=== PATIENT | female | born 1935 | race Caucasian/White ===

== ENCOUNTER 2020-11-16 06:42 | Outpatient (REF) | payer SELFPAY ==
[2020-11-16 07:03] LABS: INTERNATIONAL NORM RATIO 1.2 (0.9-1.1); Prothrombin Time 13.7 SEC (10.8-13.0)
== END 2020-11-16 06:43 | disposition home or self-care (01) ==
LOC: HO.MMNH1L 06:42
PROVIDERS: Visit Provider Family Medicine
DX: I48.91 Unspecified atrial fibrillation (principal)
CPT/HCPCS: 36415; 85610

== ENCOUNTER 2020-12-06 12:48 | Outpatient (REF) | payer SELFPAY ==
[2020-12-06 08:18] LABS: Hematocrit 21.9 % (37-47); Mean Corpuscular Hemoglobin 31.8 pg (27.0-33.0); Mean Corpuscular Volume 99.5 fL (80-98); Mean Platelet Volume 10.8 fL (9.4-12.3); Platelet Count 299 X10*3/uL (160-400); Red Cell Distribution Width 27.1 % (11.0-16.0); White Blood Count 3.5 X10*3/uL (4.8-10.8)
[2020-12-06 09:28] LABS: Anion Gap 13 (12-20); Blood Urea Nitrogen 9 mg/dL (9-16); Calcium 8.2 mg/dL (8.4-10.2); Carbon Dioxide 23 mmol/L (22-29); Chloride 99 mmol/L (96-108); Estimated Glomerular Filt Rate > 60; Glucose Random 68 mg/dL (60-115); Potassium 3.6 mmol/L (3.3-5.1); Sodium 131 mmol/L (135-145)
== END 2020-12-06 12:49 | disposition home or self-care (01) ==
LOC: HO.MMNH1L 12:48
PROVIDERS: Visit Provider Family Medicine
DX: Z91.81 History of falling (principal)
CPT/HCPCS: 36415; 80048; 85027

== ENCOUNTER 2020-12-13 06:40 | Outpatient (REF) | payer SELFPAY | END 2020-12-13 06:41 | disposition home or self-care (01) | LOC: HO.MMNH1L 06:40 | PROVIDERS: Visit Provider Family Medicine | DX: Z13.89 Encounter for screening for other disorder (principal) ==

== ENCOUNTER → 2021-11-02 14:02 | Outpatient (BNVA) | payer MEDICARE, SELFPAY | PROVIDERS: PCP Internal Medicine; Visit Provider Nurse Practitioner Family | DX: R13.10 Dysphagia, unspecified (principal); G20 Parkinson's disease; G25.0 Essential tremor; G47.33 Obstructive sleep apnea (adult) (pediatric); Z87.891 Personal history of nicotine dependence; Z79.899 Other long term (current) drug therapy | CPT/HCPCS: 99212 ==

== ENCOUNTER → 2022-04-19 13:14 | Outpatient (BNVA) | payer MEDICARE, SELFPAY | PROVIDERS: PCP Internal Medicine; Visit Provider Nurse Practitioner Family | DX: G20 Parkinson's disease (principal); G25.0 Essential tremor; R90.89 Other abnormal findings on diagnostic imaging of central nervous system; G47.33 Obstructive sleep apnea (adult) (pediatric) | CPT/HCPCS: 99212 ==

== ENCOUNTER 2022-06-18 19:20 | Inpatient (IN) | payer MEDICARE, SELFPAY ==
--- NOTE | ~2022-06-18 | CT_ITS ---
EXAMINATION: CT CHEST WITHOUT CONTRAST CLINICAL INFORMATION: Left-sided rib pain. COMPARISON: None TECHNIQUE: Multidetector volumetric CT imaging of the chest was done. Axial MIP volume rendering provided. Sagittal and coronal reformatted images were obtained. This CT examination was performed using dose optimization techniques as appropriate, variously including the following: *Automated exposure control *Adjustment of mA and/or kV according to patient size (this includes techniques or standardized protocols for targeted exams where dose is matched to indication/reason for exam; i.e. extremities or head) *Use of iterative reconstruction technique DLP: 276 mGy-cm FINDINGS: There is breathing motion. LUNGS: There are moderate to marked marmolejo emphysematous change of lungs. Consolidation/atelectasis at both dependent lung bases, left greater than right. Patchy reticular and alveolar opacity at the left lung apex within the left upper lobe. MEDIASTINUM: Heart size is normal. Small pericardial effusion. Heavy vascular calcification of coronary arteries. Vascular calcification of thoracic aorta and origin of great vessels. No aneurysm of the aorta. No mass or significant lymphadenopathy. Thyroid is unremarkable. CORONARY ARTERY CALCIFICATION: Heavy vascular calcification of coronary arteries. PLEURA: Bilateral pleural effusions. Moderate volume of the left and small on the right. AXILLA: No lymphadenopathy. UPPER ABDOMEN: Status post cholecystectomy. No focal abnormality visualized solid organs in the upper abdomen. There are vascular calcifications in the upper abdomen. OSSEOUS STRUCTURES: No acute osseous abnormality. No displaced rib fracture. Old healed fracture posterior right 10th rib. Multilevel degenerative spondylosis spine. CT/CT chest wo IV con IMPRESSION: 1. Emphysematous change of lungs. 2. Bibasilar consolidation/atelectasis, left greater than right. Patchy reticular and alveolar opacity at the left lung apex within the left upper lobe. 3. Small pericardial effusion. 4. Bilateral pleural effusions, left greater than right. 5. No displaced rib fracture. Old healed fracture posterior right 10th rib. Fleischner guidelines were followed.
[2022-06-18 19:38] VITALS: BP 117/56; PULSE 76; RESP 12; TEMP 36.9; O2SAT 95; O2SAT 97; BMI 19.3
--- NOTE | 2022-06-18 19:39 | ECG_ITS ---
Test Reason : RIB PAIN Blood Pressure : / mmHG Vent. Rate : 078 BPM Atrial Rate : 000 BPM P-R Int : 000 ms QRS Dur : 088 ms QT Int : 394 ms P-R-T Axes : 000 015 085 degrees QTc Int : 449 ms Poor data quality Normal sinus rhythm with 1st degree A-V block RSR' or QR pattern in V1 suggests right ventricular conduction delay Low voltage QRS Nonspecific ST and T wave abnormality Abnormal ECG No previous ECGs available Referred By: Arvind Workman Electronically Signed By:JEAN DUEÑAS MD
--- NOTE | 2022-06-18 19:41 | ED.CHESTPAIN ---
HPI - Chest Pain General Chief Complaint: General Medical Stated Complaint: Rib Pain Time Seen by Provider: 06/18/22 19:32 Source: patient and EMS Mode of arrival: EMS Limitations: no limitations History of Present Illness HPI narrative: 87-year-old female with lives at the skilled nursing, patient started to experience left-sided chest pain that started after the patient need was trying to transfer the patient from the bed to the chair patient thought that that transfer was handled accidentally in rough way, patient decline any risk of abuse. Pain is localized to the lower left side rib area, no radiation, pain described as dull aching pain 05/29, no other associated symptoms. Male complaining of dyspnea with exertion.. Related Data Home Medications Medication Instructions Recorded Confirmed primidone 50 mg tablet 100 mg PO BEDTIME 11/02/21 11/02/21 amiodarone 200 mg tablet 200 mg PO BID 04/19/22 04/19/22 gabapentin 100 mg capsule mg PO 04/19/22 04/19/22 lactulose 10 gram/15 mL oral 10 g PO DAILY 04/19/22 04/19/22 solution lactulose 10 gram/15 mL oral ml PO 04/19/22 04/19/22 solution levothyroxine 75 mcg tablet 75 mcg PO DAILY 04/19/22 04/19/22 lidocaine 5 % topical patch 2 patch topical DAILY 04/19/22 04/19/22 midodrine 2.5 mg tablet 2.5 mg PO BID 04/19/22 04/19/22 montelukast 10 mg tablet 10 mg PO DAILY 04/19/22 04/19/22 omeprazole 20 mg capsule,delayed 20 mg PO DAILY 04/19/22 04/19/22 release ondansetron 4 mg disintegrating 0 mg PO 04/19/22 04/19/22 tablet oxycodone 5 mg tablet 5 mg PO TID PRN 04/19/22 04/19/22 ropinirole 3 mg tablet 1.5 mg PO TID 04/19/22 04/19/22 sennosides 8.6 mg capsule (senna) 8.6 mg PO BID 04/19/22 04/19/22 Allergies Allergy/AdvReac Type Severity Reaction Status Date / Time vancomycin Allergy Mild unknown Verified 04/19/22 13:19 Review of Systems Review of Systems: All other systems are reviewed and are negative Constitutional: Reports as per HPI and Reports no additional constitutional complaints Eyes: Reports as per HPI and Reports no additional eye complaints Reports system reviewed and no additional complaints, except as documented Cardiovascular: Reports as per HPI and Reports no additional cardiovascular complaints Respiratory: Reports as per HPI and Reports no additional respiratory complaints Gastrointestinal: Reports as per HPI and Reports no additional gastrointestinal complaints Genitourinary: Reports no additional female genitourinary complaints Musculoskeletal: Reports no additional musculoskeletal complaints Skin/Breast: Reports system reviewed and no additional complaints, except as docu Psychiatric: Reports no additional psychiatric complaints Endocrine: Reports no additional endocrine complaints Hematologic/Lymphatic: Reports no additional hematologic/lymphatic complaints Allergic/Immunologic: Reports no additional allergic/immunologic complaints Reports system reviewed and no additional complaints, except as documented and Reports Abnormal speech present [facility] Past Medical History Medical History (Updated 06/19/22 @ 01:41 by Burt Yung MD) Abnormal brain MRI Essential tremor (~06/19/22) Obstructive sleep apnea Parkinson's disease Surgical History Hx of cholecystectomy Hx of total knee replacement Family History Family History Mother Alzheimer's dementia Diverticulitis Father Cancer Social History Social History Alcohol intake: never Patient Tobacco Use Status: Former Tobacco user Quit Date: 1991 Use of substances other than those prescribed or required for medical reasons: No Advance Directives: No Physical Exam Vital Signs: Vital Signs: Last Vital Signs Temp 98.3 F 06/19/22 01:33 Pulse 84 06/19/22 01:33 Resp 18 06/19/22 01:33 BP 113/66 06/19/22 01:33 Pulse Ox 95 06/19/22 01:33 O2 Del Method 06/19/22 01:33 BMI result Body Mass Index 19.3 Vital signs have been reviewed as appeared to be correct. Blood pressure normal. Heart rate normal. Respiration rate normal. Temperature normal. Oxygen saturation normal. Appearance: Alert. Oriented X3. No acute distress. Head: Normal external exam. Normocephalic. Atraumatic. No Jeffery signs noted. No raccoon eyes noted Eyes: PERRLA. EOMI. Conjunctiva and sclera normal. Eyelids normal. ENT: TM's Normal. Pharynx normal. Uvula midline. Moist mucous membranes. No trismus noted. No drooling noted. No muffled voice noted. Neck: Normal inspection. Neck supple. FROM. No adenopathy. Thyroid Normal. No meningeal signs. No neck mass noted. CVS: Normal heart rate and rhythm. Heart sound normal. No murmurs noted. Pulses normal throughout. Respiratory: No respiratory distress. Painless inspiration. Breath sounds normal. No wheezes/rales/rhonchi noted. Chest tenderness over the left 10th rib in the mid clavicular line, no ecchymosis, no step-off, no deformity. No accessory muscle usage noted or decreased air movement noted. Abdomen: Soft and nontender. Bowel sounds normal in all 4 quadrants. No distention noted. No organomegaly noted. No visible injury noted. Rectal exam: Brown stool guaiac negative. Back: No CVA tenderness. Full range of motion noted. Skin: Skin warm and dry. Normal skin color. Normal skin turgor. No rashes/lesions/lacerations noted. Extremities: No lower extremity edema. Extremities exhibit normal range of motion. Extremities nontender. Neuro: Oriented X 3. Cranial nerve exam: II-XII are grossly intact No motor deficit. No sensory deficit. Reflexes normal. Course Course Course Narrative: 87-year-old female presented with chest wall pain patient had a CT of the chest which is questioning left upper lung pneumonia since patient is coughing and have symptoms of pneumonia patient was given Zosyn patient do not meet criteria for SIRS. Anemia of unclear etiology will transfuse 1 unit of blood MDM - Chest Pain Lab Data Attestation: I reviewed the patient's lab results. Result diagrams: 06/18/22 22:39 06/18/22 22:39 Labs: Lab Results 06/18/22 06/18/22 06/18/22 Range/Units 22:39 22:39 22:39 WBC 5.2 (4.8-10.8) X10*3/uL RBC 2.55 L (4.20-5.50) X10*6/uL Hgb 7.3 L (12.0-16.0) g/dl Hct 23.1 L (37.0-47.0) % MCV 90.6 (80.0-98.0) fL MCH 28.6 (27.0-33.0) pg MCHC 31.6 (31.0-35.0) g/dl RDW 19.4 H (11.0-16.0) % Plt Count 233 (160-400) X10*3/uL MPV 12.1 (9.4-12.3) fL Immature Gran % (Auto) Cancelled Neut % (Auto) Cancelled Lymph % (Auto) Cancelled Wheeler % (Auto) Cancelled Eos % (Auto) Cancelled Baso % (Auto) Cancelled Lymph # (Auto) Cancelled Wheeler # (Auto) Cancelled Eos # (Auto) Cancelled Baso # (Auto) Cancelled Abs Immat Gran (auto) Cancelled Absolute Neuts (auto) Cancelled Absolute Nucleated RBC 0.020 H (0.0-0.012) X10*3/uL Nucleated RBC % (auto) 0.4 H (0.0-0.2) /100WBC Neutrophils % (Manual) 18 L (45-73) % Band Neutrophils % 2 L (3-5) % Lymphocytes % (Manual) 37 (20-40) % Monocytes % (Manual) 29 H (2-11) % Eosinophils % (Manual) 5 H (0-4) % Metamyelocytes % 5 % Myelocytes % 3 % Blast Cells % (Manual) 1 % Abs Neuts (Manual) 1.0 L (2.0-8.3) X10*3/uL Lymphocytes # (Manual) 1.9 (1.2-4.9) X10*3/uL Monocytes # (Manual) 1.5 H (0.1-1.2) X10*3/uL Eosinophils # (Manual) 0.3 (0.0-0.4) X10*3/uL Metamyelocytes # 0.3 X10*3/uL Myelocytes # 0.2 X10*/uL Blast Cells # 0.1 X10*3/uL Nucleated RBCs 1 H (0-0) /100WBC WBC Morphology Comment DYS Platelet Estimate NORMAL (NORMAL) Large Platelets PRESENT Plt Morphology Comment AGRANULAR RBC Morphology NOTED Hypochromasia 1+ (5-14) /OIF Microcytosis 1+ (5-14) /OIF Macrocytosis 1+ (5-14) /OIF Tear Drop Cells 1+ (0-2) /OIF Ovalocytes 1+ (5-14) /OIF Acanthocytes (Spur) 2+ (3-5) /OIF Rouleaux PRESENT Schistocytes 1+ (0-2) /OIF Sodium 132 L (135-145) mmol/L Potassium 4.6 (3.3-5.1) mmol/L Chloride 103 (96-108) mmol/L Carbon Dioxide 21 L (22-29) mmol/L Anion Gap 13 (12-20) BUN 16 (9-16) mg/dL Creatinine 0.77 (0.5-1.4) mg/dL Estim Creat Clear Calc 45.6 Estimated GFR > 60 Random Glucose 81 (60-115) mg/dL Calcium 8.5 (8.4-10.2) mg/dL Total Bilirubin 0.4 (0.0-1.0) mg/dL Direct Bilirubin 0.2 (0.0-0.5) mg/dL AST 20 (5-31) U/L ALT 8 (0-31) U/L Alkaline Phosphatase 129 H (39-117) U/L Troponin I High Sens 4.0 (<3.5-17.0) ng/L B-Natriuretic Peptide 134 H (<100) pg/mL Total Protein 6.8 (6.5-8.0) g/dL Albumin 2.9 L (3.5-5.0) g/dL Lipase 14 (8-78) U/L Stool Occult Blood (NEGATIVE) 06/19/22 Range/Units 00:05 WBC (4.8-10.8) X10*3/uL RBC (4.20-5.50) X10*6/uL Hgb (12.0-16.0) g/dl Hct (37.0-47.0) % MCV (80.0-98.0) fL MCH (27.0-33.0) pg MCHC (31.0-35.0) g/dl RDW (11.0-16.0) % Plt Count (160-400) X10*3/uL MPV (9.4-12.3) fL Immature Gran % (Auto) Neut % (Auto) Lymph % (Auto) Wheeler % (Auto) Eos % (Auto) Baso % (Auto) Lymph # (Auto) Wheeler # (Auto) Eos # (Auto) Baso # (Auto) Abs Immat Gran (auto) Absolute Neuts (auto) Absolute Nucleated RBC (0.0-0.012) X10*3/uL Nucleated RBC % (auto) (0.0-0.2) /100WBC Neutrophils % (Manual) (45-73) % Band Neutrophils % (3-5) % Lymphocytes % (Manual) (20-40) % Monocytes % (Manual) (2-11) % Eosinophils % (Manual) (0-4) % Metamyelocytes % % Myelocytes % % Blast Cells % (Manual) % Abs Neuts (Manual) (2.0-8.3) X10*3/uL Lymphocytes # (Manual) (1.2-4.9) X10*3/uL Monocytes # (Manual) (0.1-1.2) X10*3/uL Eosinophils # (Manual) (0.0-0.4) X10*3/uL Metamyelocytes # X10*3/uL Myelocytes # X10*/uL Blast Cells # X10*3/uL Nucleated RBCs (0-0) /100WBC WBC Morphology Comment Platelet Estimate (NORMAL) Large Platelets Plt Morphology Comment RBC Morphology Hypochromasia /OIF Microcytosis /OIF Macrocytosis /OIF Tear Drop Cells /OIF Ovalocytes /OIF Acanthocytes (Spur) /OIF Rouleaux Schistocytes /OIF Sodium (135-145) mmol/L Potassium (3.3-5.1) mmol/L Chloride (96-108) mmol/L Carbon Dioxide (22-29) mmol/L Anion Gap (12-20) BUN (9-16) mg/dL Creatinine (0.5-1.4) mg/dL Estim Creat Clear Calc Estimated GFR Random Glucose (60-115) mg/dL Calcium (8.4-10.2) mg/dL Total Bilirubin (0.0-1.0) mg/dL Direct Bilirubin (0.0-0.5) mg/dL AST (5-31) U/L ALT (0-31) U/L Alkaline Phosphatase (39-117) U/L Troponin I High Sens (<3.5-17.0) ng/L B-Natriuretic Peptide (<100) pg/mL Total Protein (6.5-8.0) g/dL Albumin (3.5-5.0) g/dL Lipase (8-78) U/L Stool Occult Blood NEGATIVE (NEGATIVE) Imaging Data Chest CT: Attestation: I personally reviewed and interpreted this imaging study as follows: Radiologist's impression: 1.? Emphysematous change of lungs. 2.? Bibasilar consolidation/atelectasis, left greater than right. Patchy reticular and alveolar opacity at the left lung apex within the left upper lobe. 3.? Small pericardial effusion. 4.? Bilateral pleural effusions, left greater than right. 5.? No displaced rib fracture. Old healed fracture posterior right 10th rib. Discharge Plan Discharge Clinical Impression: Anemia, Pneumonia Patient Disposition: Admitted As Inpatient
[2022-06-18] MEDS: oxyCODONE HCl Immed Release 5 MG TABLET PO (19:59)
[2022-06-18 22:58] LABS: Hematocrit 23.1 % (37.0-47.0); Hemoglobin 7.3 g/dl (12.0-16.0); Mean Corpuscular HGB Conc 31.6 g/dl (31.0-35.0); Mean Corpuscular Hemoglobin 28.6 pg (27.0-33.0); Mean Corpuscular Volume 90.6 fL (80.0-98.0); Mean Platelet Volume 12.1 fL (9.4-12.3); NRBC Pct Auto 0.4 /100WBC (0.0-0.2); Platelet Count 233 X10*3/uL (160-400); Red Blood Count 2.55 X10*6/uL (4.20-5.50); Red Cell Distribution Width 19.4 % (11.0-16.0); WBC ABN SCTR FOR CBC 1
[2022-06-18 23:02] LABS: Anion Gap 13 (12-20); Aspartate Amino Transferase 20 U/L (5-31); Bilirubin Direct 0.2 mg/dL (0.0-0.5); Bilirubin Total 0.4 mg/dL (0.0-1.0); Blood Urea Nitrogen 16 mg/dL (9-16); Carbon Dioxide 21 mmol/L (22-29); Chloride 103 mmol/L (96-108); Estimated Glomerular Filt Rate > 60; Glucose Random 81 mg/dL (60-115); Lipase 14 U/L (8-78); Potassium 4.6 mmol/L (3.3-5.1); Sodium 132 mmol/L (135-145)
[2022-06-18 23:06] LABS: B Type Natriuretic Peptide 134 pg/mL (<100)
[2022-06-18 23:09] VITALS: BP 124/51; PULSE 83; RESP 14; TEMP 36.8; O2SAT 97
[2022-06-18 23:30] LABS: White Blood Count 5.2 X10*3/uL (4.8-10.8)
[2022-06-18 23:37] LABS: Band Neutrophils Percent 2 % (3-5); Blast Percent 1 %; Blastocytes Absolute 0.1 X10*3/uL; Eosinophils Absolute Manual 0.3 X10*3/uL (0.0-0.4); Eosinophils Percent Manual 5 % (0-4); Lymphocytes Absolute Manual 1.9 X10*3/uL (1.2-4.9); Lymphocytes Percent Manual 37 % (20-40); Metamyelocytes Absolute 0.3 X10*3/uL; Metamyelocytes Percent 5 %; Monocytes Absolute Manual 1.5 X10*3/uL (0.1-1.2); Monocytes Percent Manual 29 % (2-11); Myelocytes Absolute 0.2 X10*/uL; Myelocytes Percent 3 %; Neutrophils Percent Manual 18 % (45-73); Nucleated Red Blood Cells 1 /100WBC (0-0)
[2022-06-18 23:40] LABS: Large Platelet PRESENT; Ovalocytes 1+ (5-14) /OIF; Platelet Estimate NORMAL (NORMAL); Platelet Morphology Comment AGRANULAR; RBC Morphology NOTED
[2022-06-18 23:41] LABS: Hypochromasia 1+ (5-14) /OIF; Schistocytes 1+ (0-2) /OIF; Tear Drop Cells 1+ (0-2) /OIF
[2022-06-18 23:42] LABS: Acanthocytes 2+ (3-5) /OIF; Rouleau PRESENT
[2022-06-18 23:44] LABS: Macrocytosis 1+ (5-14) /OIF; Microcytosis 1+ (5-14) /OIF
[2022-06-19] VITALS (10 sets, daily range): BP systolic 108–143; BP diastolic 47–68; PULSE 84–105; RESP 14–22; TEMP 36.7–37.2; O2SAT 80–95
[2022-06-19 00:14] LABS: OBS Int Ctl Valid YES; OBS1 NEGATIVE (NEGATIVE)
--- OUTSIDE RECORDS SUMMARY | 2022-06-19 00:19 | XMS_ITS | Continuity of Care Document ---
:1935 Author Organization [facility] Address [address] [place] [phone] Care Team Providers Name Role Phone Art Ortiz MD Primary Care Physician Encounter [facility] [place] Date(s): 07/29/21 - 08/28/21 [facility] [address] [place] [phone] [place] Allergies, Adverse Reactions, Alerts Substance Reaction Severity Status doxycycline Active vancomycin rash Active Dilaudid CAUSES VOMITING Active Bactrim Active Avelox Active Dexilant Active Pradaxa heart burn Active Immunizations Given and Recorded Vaccine Date Status Refusal Reason SARS-CoV-2 (COVID-19) mRNA BNT-162b2 vac 05/23/21 Recorde d SARS-CoV-2 (COVID-19) mRNA BNT-162b2 vac 11/19/20 Recorde d SARS-CoV-2 (COVID-19) mRNA BNT-162b2 vac 10/26/20 Recorde d Influenza Inactive (IM) (oldterm)1 07/20/06 Given 1Admin Note: [employer] Medications Albuterol (Eqv-ProAir HFA) 90 mcg/inh inhalation aerosol INHALE 2 PUFFS INTO THE LUNGS EVERY 6 HOURS NEEDED FOR COUGH OR WHEEZING. Start Date: 07/12/21 Status: Orderedalendronate 70 mg oral tablet TAKE 1 TABLET BY MOUTH EVERY WEEK Start Date: 07/12/21 Status: Orderedamiodarone 200 mg oral tablet 400 mg, 2, tablet, By Mouth, Daily, Maintenance dose to begin the day after cardioversion Take 2 tablets (400mg) daily, # 180 tablet, Refills 5, Tot. Refills 5, Maintenance, 08/04/21 11:50:00 EST, Route to Pharmacy Electronically, [facility] Start Date: 08/04/21 Stop Date: 01/26/23 Status: Orderedammonium lactate 12% topical cream APPLY TO AFFECTED AREA(S) TOPICALLY ONCE DAILY Start Date: 07/12/21 Status: OrderedAnoro Ellipta 62.5 mcg-25 mcg/inh inhalation powder INHALE ONE PUFF BY MOUTH EVERY DAY Start Date: 07/12/21 Status: Ordereddigoxin 0.125 mg oral tablet 0.125 mg, 1, tablet, By Mouth, Daily, Refills 0, Maintenance, 07/15/21 13:12:00 EST, Partial fill upon patient request if the prescription is for a schedule II opioid drug. Start Date: 07/15/21 Status: OrderedEliquis 2.5 mg oral tablet TAKE ONE TABLET BY MOUTH TWICE A DAY Start Date: 07/12/21 Status: Orderedfurosemide 20 mg oral tablet TAKE ONE TABLET BY MOUTH Iif you gain 3 lb weight in 2 day or 5 lb in 2 days Start Date: 07/12/21 Status: Orderedgabapentin 100 mg oral capsule TAKE 1 CAPSULE BY MOUTH TWICE DAILY. Start Date: 07/12/21 Status: Orderedlevothyroxine 75 mcg (0.075 mg) oral tablet 1 tablet = 75 mcg, By Mouth, Daily, # 30 tablet, 0 Refills, Maintenance, 07/12/21 21:18:00 EST, Tablet, Partial fill upon patient request if the prescription is for a schedule II opioid drug. Start Date: 07/12/21 Status: Orderedmethenamine hippurate 1 gm oral tablet TAKE ONE TABLET BY MOUTH TWICE A DAY Start Date: 07/12/21 Status: Orderedmetoprolol 50 mg oral tablet, extended release 50 mg, 1, tablet, By Mouth, Daily, # 30 tablet, Refills 0, Tot. Refills 0, Maintenance, 12/13/20 14:51:00 EDT, Route to Pharmacy Electronically, [id number], Partial fill upon patient request if the prescription is for a schedule II opioi... Start Date: 12/13/20 Status: OrderedMetoprolol Succinate ER 50 mg oral tablet, extended release TAKE ONE AND ONE-HALF TABLETS BY MOUTH EVERY DAY Start Date: 07/12/21 Status: Orderedmontelukast 10 mg oral tablet TAKE ONE TABLET BY MOUTH IN THE EVENING Start Date: 07/12/21 Status: OrderedMyrbetriq 25 mg oral tablet, extended release TAKE ONE TABLET BY MOUTH EVERY DAY. SWALLOW WHOLE TABLET WITH WATER. DO NOT CRUSH, CHEW, AND/OR DIVIDE. Start Date: 07/12/21 Status: OrderedPacerone 200 mg oral tablet 2 tablet = 400 mg, By Mouth, 2 times a day, Take 2 tablets twice daily until day of cardioversion. After cardioversion start maintenace dose of 400mg daily, # 120 tablet, 0 Refills, Maintenance, 07/29/21 15:41:00 [facility], [id number] 168, cm... Start Date: 07/29/21 Stop Date: 08/28/21 Status: Orderedprimidone 50 mg oral tablet TAKE TWO TABLETS BY MOUTH AT BEDTIME Start Date: 07/12/21 Status: OrderedrOPINIRole 1 mg oral tablet TAKE ONE TABLET BY MOUTH THREE TIMES A DAY Start Date: 07/12/21 Status: Ordered Problem List Condition Effective Dates Status Health Status Informant AF - Atrial fibrillation(Confirmed) Active Atrophic vaginitis(Confirmed) Active Overactive bladder(Confirmed) Active Diverticulosis(Confirmed) Active Essential tremor(Confirmed) Active Gastro-esophageal reflux Active disease(Confirmed) Hypothyroid(Confirmed) Active IBS - Irritable bowel Active syndrome(Confirmed) Menopause(Confirmed) Active MDS (myelodysplastic Active syndrome)(Confirmed) Obstructive sleep apnea(Confirmed) Active Osteopenia(Confirmed) Active Restless leg syndrome(Confirmed) Active Urinary Frequency(Confirmed) Active UTI [Urinary tract Active infection](Confirmed) Social History Social History Type Response Smoking Status Former smoker; Tobacco user in household: No; Other: pt states she quit smoking in 1991; entered on: 01/21/18 Sex
--- OUTSIDE RECORDS SUMMARY | 2022-06-19 00:19 | XMS_ITS | Continuity of Care Document ---
:1935 Author Organization [facility] Address [address] [place] [phone]- Care Team Providers Name Role Phone Art Ortiz MD Primary Care Physician Encounter [facility] Date(s): 12/01/20 - 12/31/20 [facility] [address] [place] [address] Allergies, Adverse Reactions, Alerts Substance Reaction Severity Status doxycycline Active vancomycin rash Active Dilaudid CAUSES VOMITING Active Bactrim Active Avelox Active Dexilant Active Pradaxa heart burn Active Immunizations Given and Recorded Vaccine Date Status Refusal Reason Influenza Inactive (IM) (oldterm)1 07/20/06 Given 1Admin Note: SANOFI PASTEUR VAULT CLERK Medications 25 5/8 needle 25 5/8 needle, See Instructions, # 30 each, Refills 0, Tot. Refills 0, Maintenance, Use to give EPO, 11/10/20 9:51:00 EDT, Supply Start Date: 11/10/20 Status: Ordered3 mL syringe 3 mL syringe, See Instructions, # 60 each, Refills 1, Tot. Refills 1, Maintenance, Use daily to giveEPO, 11/10/20 9:51:00 EDT, Compound Start Date: 11/10/20 Status: OrderedAlbuterol (Eqv-ProAir HFA) 90 mcg/inh inhalation aerosol 2 puffs, Inhalation, Every 4 hours, to 6 hours, 0 Refills, Maintenance, 05/14/20 12:09:00 EDT Start Date: 05/14/20 Status: OrderedAlcohol Pads See Instructions, # 30 each, Maintenance, Use as needed, 02/17/20 11:42:00 EDT, Supply Start Date: 02/17/20 Status: Orderedalendronate 70 mg oral tablet 1 tablet = 70 mg, By Mouth, Every week, # 4 tablet, 13 Refills, Maintenance, 11/02/20 7:52:00 EDT, Tablet, [facility], 168, cm, 10/07/20 10:49:00 EST, Height, 62.8, kg, 09/30/20 23:50:00 EST, Dry Weight Start Date: 11/02/20 Status: Orderedamiodarone 200 mg oral tablet 200 mg, 1, tablet, By Mouth, 2 times a day, # 60 tablet, Refills 2, Tot. Refills 2, Maintenance, 12/03/20 17:53:00 EDT, Route to Pharmacy Electronically, [facility], 168, cm, 10/07/2109:49:00 EST, Height, 62.8, kg, 09/30/20 23:50:00 EST... Start Date: 12/03/20 Stop Date: 03/03/21 Status: OrderedAnoro Ellipta 62.5 mcg-25 mcg/inh inhalation powder 1 puffs, Inhalation, Daily, Maintenance, 09/30/20 18:38:00 EST, Powder, Partial fill upon patient request if the prescription is for a schedule II opioid drug. Start Date: 09/30/20 Status: OrderedCaltrate 600 with D 600 mg-125 u oral tablet 2 tab, 2 times a day with meals, 0, 0, 03/15/06 14:30:30, bones, Print WAGNER Number, [id number], Constant Indicator Start Date: 03/15/06 Status: OrderedCitrucel 2 gm/19 gm oral powder for reconstitution = 2 Gm, By Mouth, Daily at bedtime, PRN as needed for constipation, 0 Refills, Maintenance, 141:50:08 EDT Start Date: 05/12/14 Status: Ordereddocusate sodium 100 mg oral capsule 1 capsule = 100 mg, By Mouth, 2 times a day, PRN as needed for constipation, 0 Refills, Maintenance,05/15/14 7:29:44 EDT, Capsule Start Date: 05/15/14 Status: OrderedEliquis 2.5 mg oral tablet 1 tablet = 2.5 mg, By Mouth, 2 times a day, # 60 tablet, 5 Refills, Maintenance, 11/08/20 10:54:00 EDT, Tablet, [facility], d/c warfarin, 168, cm, 10/07/20 10:49:00 EST, Height, 62.8,kg, 09/30/20 23:50:00 EST, Dry Weight Start Date: 11/08/20 Stop Date: 05/07/21 Status: Orderedestradiol 0.1 mg/g vaginal cream = 1 Gm, Vaginally, 2-3 TIMES PER WEEK Start Date: 09/30/20 Status: Orderedgabapentin 100 mg oral capsule 100 mg, 1, capsule, By Mouth, 2 times a day Start Date: 09/30/20 Status: Orderedketoconazole 2% topical shampoo APPLY TOPICALLY TWICE WEEKLY, LATHER, LEAVE IN PLACE FOR 5 MINUTES AND THEN RINSE OFF WITH WATER TO THE AFFECTED AREA(S) Start Date: 09/30/20 Status: OrderedLactulose 30 mL, By Mouth, Daily, PRN as needed for constipation, 0 Refills, Maintenance, 05/14/20 12:16:00 EDT Start Date: 05/14/20 Status: Orderedlevothyroxine 75 mcg (0.075 mg) oral tablet 1 tablet = 75 mcg, By Mouth, Daily, Maintenance, 09/30/20 18:40:00 EST, Tablet, Partial fill upon patient request if the prescription is for a schedule II opioid drug. Start Date: 09/30/20 Status: Orderedmetoprolol 50 mg oral tablet, extended release 50 mg, 1, tablet, By Mouth, Daily, # 30 tablet, Refills 0, Tot. Refills 0, Maintenance, 12/13/20 14:51:00 EDT, Route to Pharmacy Electronically, [facility], Partial fill upon patient request if the prescription is for a schedule II opioi... Start Date: 12/13/20 Status: OrderedMiraLax oral powder for reconstitution = 17 Gm, By Mouth, Daily, PRN Constipation, 0 Refills, Maintenance, 05/12/14 1:50:49 Start Date: 05/12/14 Status: OrderedMucinex Allergy = 180 mg, By Mouth, Daily, 0 Refills, Maintenance, 05/14/20 12:06:00 EDT Start Date: 05/14/20 Status: OrderedMultivitamin Tablet By Mouth, Daily, 0 Refills, Maintenance, 11/08/15 11:57:59 Start Date: 11/08/15 Status: OrderedNexium Capsule 40 mg, By Mouth, Daily, Maintenance, 02/16/11 12:51:11 EDT Start Date: 02/16/11 Status: Orderedpramipexole 0.125 mg oral tablet TAKE ONE TABLET BY MOUTH EVERY DAY FOR 3 DAYS, THEN TAKE ONE TABLET BY MOUTH TWICE A DAY FOR 3 DAYS,THEN TAKE 1 BY MOUTH THREE TIMES A DAY Start Date: 09/30/20 Status: Orderedprimidone 50 mg oral tablet 50 mg, 1, tablet, By Mouth, 2 times a day, IN THE MORNING AND MID-AFTERNON AND TAKE TWO TABLETS BY MOUTH AT BEDTIME DIRECTED Start Date: 09/30/20 Status: OrderedRetacrit 40,000 units/mL preservative-free injectable solution See Instructions, 40 000 units SQ every week, # 10 mL, 1 Refills, Maintenance, 11/09/20 16:49:00 EDT, Partial fill upon patient request if the prescription is for a schedule II opioid drug. Start Date: 11/09/20 Status: OrderedrOPINIRole 0.25 mg oral tablet TAKE 3 - 4 TABLETS BY MOUTH THREE TIMES A DAY Start Date: 09/30/20 Status: OrderedSingulair 10 mg oral tablet 10 mg, 1, tablet, By Mouth, Daily, Refills 0, Maintenance, 05/13/18 15:20:31 EDT Start Date: 05/13/18 Status: OrderedVitamin C By Mouth, Daily, 0 Refills, Maintenance, 10/22/19 11:47:00 EST Start Date: 10/22/19 Status: Orderedvitamin d 400iu vitamin d 400iu, Refills 0, Maintenance, 2000 iu qd, 12/09/18 13:57:16 EDT, Compound Start Date: 12/09/18 Status: Orderedwarfarin 2.5 mg oral tablet See Instructions, take 1 to 2 tablets daily based on INR and advice of anticoagulation clinic, # 60 tablet, 5 Refills, Maintenance, 06/11/20 15:02:00 EDT, Tablet, [facility], 167.2, cm, 06/11/20 14:21:00 EDT, Height, 68.1, kg, ... Start Date: 06/11/20 Status: Ordered Problem List Condition Effective Dates Status Health Status Informant AF - Atrial fibrillation(Confirmed) Active Atrophic vaginitis(Confirmed) Active Overactive bladder(Confirmed) Active Diverticulosis(Confirmed) Active Gastro-esophageal reflux Active disease(Confirmed) Hypothyroid(Confirmed) Active IBS - Irritable bowel Active syndrome(Confirmed) Menopause(Confirmed) Active MDS (myelodysplastic Active syndrome)(Confirmed) Obstructive sleep apnea(Confirmed) Active Osteopenia(Confirmed) Active Urinary Frequency(Confirmed) Active UTI [Urinary tract Active infection](Confirmed) Social History Social History Type Response Smoking Status Former smoker; Tobacco user in household: No; Other: pt states she quit smoking in 1991; entered on: 01/21/18 Sex
--- OUTSIDE RECORDS SUMMARY | 2022-06-19 00:20 | XMS_ITS | Continuity of Care Document ---
:1935 Author Organization [facility] Address [address] [place] [phone]- Care Team Providers Name Role Phone Art Ortiz MD Primary Care Physician [place]counter [facility] [place] Date(s): 07/12/21 - 07/15/[address] [phone]- Encounter Diagnosis UTI symptoms (Final) - 07/15/21 Discharge Disposition: A-D/C Home Attending Physician: Carlene Pelaez MD Admitting Physician: Claudia Rockwell DO Referring Physician: Not on Staff, Referring MD Allergies, Adverse Reactions, Alerts Substance Reaction Severity Status doxycycline Active vancomycin rash Active Dilaudid CAUSES VOMITING Active Pradaxa heart burn Active Bactrim Active Avelox Active Dexilant Active Immunizations Given and Recorded Vaccine Date Status Refusal Reason SARS-CoV-2 (COVID-19) mRNA BNT-162b2 vac 05/23/21 Recorde d SARS-CoV-2 (COVID-19) mRNA BNT-162b2 vac 11/19/20 Recorde d SARS-CoV-2 (COVID-19) mRNA BNT-162b2 vac 10/26/20 Recorde d Influenza Inactive (IM) (oldterm)1 07/20/06 Given 1Admin Note: SANOFI PASTEUR ASSOCIATE PROFESSOR Medications Albuterol (Eqv-ProAir HFA) 90 mcg/inh inhalation aerosol INHALE 2 PUFFS INTO THE LUNGS EVERY 6 HOURS NEEDED FOR COUGH OR WHEEZING. Start Date: 07/12/21 Status: Orderedalendronate 70 mg oral tablet TAKE 1 TABLET BY MOUTH EVERY WEEK Start Date: 07/12/21 Status: Orderedammonium lactate 12% topical cream APPLY TO AFFECTED AREA(S) TOPICALLY ONCE DAILY Start Date: 07/12/21 Status: OrderedAnoro Ellipta 62.5 mcg-25 mcg/inh inhalation powder INHALE ONE PUFF BY MOUTH EVERY DAY Start Date: 07/12/21 Status: Ordereddigoxin 0.125 mg oral tablet 0.125 mg, Tablet, By Mouth, 07/15/21 16:00:00 EST Start Date: 07/15/21 Stop Date: 07/15/21 Status: Completeddigoxin 0.125 mg oral tablet 0.125 mg, 1, [...] MOUTH TWICE DAILY. Start Date: 07/12/21 Status: Orderedgabapentin 100 mg oral capsule 100 mg, Capsule, By Mouth, 07/15/21 9:00:00 EST Start Date: 07/15/21 Stop Date: 07/15/21 Status: Completedlevothyroxine 75 mcg (0.075 mg) oral tablet 1 [...] CHEW, AND/OR DIVIDE. Start Date: 07/12/21 Status: Orderedprimidone 50 mg oral tablet TAKE TWO TABLETS BY MOUTH AT BEDTIME Start Date: 07/12/21 Status: OrderedrOPINIRole 1 mg oral tablet TAKE ONE TABLET BY MOUTH THREE TIMES A DAY Start Date: 07/12/21 Status: OrderedToprol-XL 75 mg, XL Tablet, By Mouth, 07/15/21 9:00:00 EST Start Date: 07/15/21 Stop Date: 07/15/21 Status: Completed Problem List Condition Effective Dates Status Health Status Informant AF - Atrial fibrillation(Confirmed) Active Atrophic vaginitis(Confirmed) Active Overactive bladder(Confirmed) Active Diverticulosis(Confirmed) Active Essential tremor(Confirmed) Active Gastro-esophageal reflux Active disease(Confirmed) Hypothyroid(Confirmed) Active IBS - Irritable bowel Active syndrome(Confirmed) Menopause(Confirmed) Active MDS (myelodysplastic Active syndrome)(Confirmed) Obstructive sleep apnea(Confirmed) Active Osteopenia(Confirmed) Active Restless leg syndrome(Confirmed) Active Urinary Frequency(Confirmed) Active UTI [Urinary tract Active infection](Confirmed) Results Orders for Microbiology Reports Name Date Urine Culture (URINE CULTURE) 07/12/21 Microbiology Reports TEST:Urine Culture STATUS:Auth (Verified) BODY SITE: SOURCE:URINE COLLECTED DATE/TIME:07/12/21 4:30 PMUrine Culture SPECIMEN DESCRIPTION : URINE SPECIAL REQUESTS : NONE CULTURE : Mixed bacterial daryl, indicative of urogenital contamination. REPORT STATUS : FINAL 07/14/2021adiology Reports Exam Date Time Procedure Performing Provider Status 07/12/21 3:40 PM Chest Portable Enriqueta Thompson; Auth ([facility] ed) Notes:(Chest Portable) Reason For Exam: Shortness of BreathRESULT: Chest Portable Chest Portable performed upright at 3:37 PM Reason: Shortness of Breath; Clinical Question(s): CHF COMPARISON: Multiple prior chest x-rays, the most recent of which is dated 09/29/20. FINDINGS: LINES AND TUBES: None. LUNGS AND PLEURA: There are increased interstitial opacities most notable in the upper lungs. No pleural effusion. No pneumothorax. HEART, MEDIASTINUM AND JOHN: Heart is normal in size. Normal upper mediastinal and hilar contour. BONES AND SOFT TISSUES: No acute bony abnormality. Degenerative change is seen in the left glenohumeral joint. IMPRESSION: Increased interstitial opacities most notable in the upper lungs, which may reflect interstitial edema. WSN: [id number] Ordering Physician: Earl Osborne Dictated By: Trini Torres MD Dictated Date/Time: 07/12/21 3:46 pm Reviewed By: Trini Torres MD Signed By: Trini Torres MD Signed Date/Time: 07/12/21 3:46 pm Transcribed By: NSA Transcribed Date/Time: 07/12/21 3:43 pm Vital Signs Most recent to oldest 1 2 3 [Reference Range]: Height 168 cm 168 cm 168 cm (07/15/21 2:42 PM) (07/15/21 8:12 AM) (07/15/21 2:07 AM) Weight 61.0 kg 58.8 kg 62.4 kg (07/15/21 2:07 AM) (07/14/21 2:02 AM) (07/13/21 3:38 AM) Oxygen Saturation [94-100 97 % 96 % 98 % %] (07/15/21 2:42 PM) (07/15/21 8:12 AM) (07/15/21 2:07 AM) Pulse Rate [55-90 bpm] 82 bpm 74 bpm 84 bpm (07/15/21 4:55 PM) (07/15/21 2:42 PM) (07/15/21 10:31 AM) Body Mass Index 21.61 20.83 22.11 [18.5-24.99] (07/15/21 2:07 AM) (07/14/21 2:02 AM) (07/13/21 3:38 AM) Blood Pressure 106/51 mm Hg 108/48 mm Hg 104/54 mm Hg [90-138/55-84 mm Hg] (07/15/21 2:42 PM) (07/15/21 10:31 AM) ( 8:12 AM) Respiratory Rate [16-30 20 br/min 18 br/min 19 br/mi n br/min] (07/15/21 2:42 PM) (07/15/21 10:31 AM) (07/15/21 8:12 AM) Temperature [96.8-100.4 98.2 DegF 97.9 DegF 97.8 Deg F DegF] (07/15/21 2:42 PM) (07/15/21 8:12 AM) (07/15/21 2:07 AM) Liters per Minute 2 L/min 2 L/min 3 L/min (07/13/21 7:55 AM) (07/13/21 3:38 AM) (07/12/21 10:31 PM) Mode of Delivery (Oxygen) Room air Room air Room a ir (07/15/21 2:42 PM) (07/15/21 8:12 AM) (07/15/21 2:07 AM) Blood pressure sites Arm, right Arm, right Arm, right (07/15/21 2:42 PM) (07/15/21 8:12 AM) (07/15/21 2:07 AM) Temperature Route Oral Oral Axillary (07/15/21 2:42 PM) (07/15/21 8:12 AM) (07/15/21 2:07 AM) Dry Weight 62.4 kg (07/12/21 10:31 PM) Weight Obtained Via Bed scale Bed scale Bed scale (07/15/21 2:07 AM) (07/14/21 2:02 AM) (07/13/21 3:38 AM) Social History Social History Type Response Smoking Status Former smoker; Tobacco user in household: No; Other: pt states she quit smoking in 1991; entered on: 01/21/18 Sex
--- OUTSIDE RECORDS SUMMARY | 2022-06-19 00:20 | XMS_ITS | Continuity of Care Document ---
:1935 Author Organization [facility] Address [address] [place] [phone]- Care Team Providers Name Role Phone Art Ortiz MD Primary Care Physician [place] [facility] [place] 09/29/20 - 10/07/[address] [email or web address] Encounter Diagnosis Atrial fibrillation with rapid ventricular response (Final) - 09/29/20 Discharge Disposition: A-Transfer SNF Attending Physician: Mango CALIXTO, Moiz Menendez Admitting Physician: Rowdy Cole MD Referring Physician: Not on Staff, Referring MD Allergies, Adverse Reactions, Alerts Substance Reaction Severity Status doxycycline Active vancomycin rash Active Dilaudid CAUSES VOMITING Active Bactrim Active Avelox Active Dexilant Active Pradaxa heart burn Active Immunizations Given and Recorded Vaccine Date Status Refusal Reason Influenza Inactive (IM) (oldterm)1 07/20/06 Given 1Admin Note: SANOFI PASTEUR PHYSICAL TESTING SUPERVISOR Medications 25 5/8 needle 25 5/8 needle, See Instructions, # 30 each, Refills 0, Tot. Refills 0, Maintenance, Use to give EPO, 02/17/20 11:41:00 EDT, Supply Start Date: 02/17/20 Status: Ordered3 mL syringe 3 mL syringe, See Instructions, # 60 each, Refills 1, Tot. Refills 1, Maintenance, Use daily to giveEPO, 02/17/20 11:40:00 EDT, Compound Start Date: 02/17/20 Status: OrderedAlbuterol (Eqv-ProAir HFA) 90 mcg/inh inhalation [...] week, # 4 tablet, 13 Refills, Maintenance, 10/22/19 12:05:00 EST, Tablet, [facility], 167.2, cm, 10/22/19 11:40:00 EST, Height, 68.1, kg, 07/01/19 14:22:00 EST, Dry Weight Start Date: 10/22/19 Status: Orderedamiodarone 200 mg oral tablet 200 mg, 1, tablet, By Mouth, Daily, # 30 tablet, Refills 11, Tot. Refills 11, Maintenance, 10/02/19 14:38:00 EST, Route to Pharmacy Electronically, [facility], 167.2, cm, 10/02/19 13:38:00 EST, Height, 68.1, kg, 07/01/19 14:22:00 EST, . Start Date: 10/02/19 Stop Date: 09/26/20 Status: OrderedAnoro Ellipta 62.5 mcg-25 mcg/inh inhalation [...] as needed for constipation, 0 Refills, Maintenance, :50:08 EDT Start Date: 05/12/14 Status: Ordereddocusate sodium 100 mg oral capsule 1 capsule = 100 mg, By Mouth, 2 times a day, PRN as needed for constipation, 0 Refills, Maintenance,05/15/14 7:29:44 EDT, Capsule Start Date: 05/15/14 Status: Orderedestradiol 0.1 mg/g vaginal cream = 1 Gm, Vaginally, 2-3 TIMES PER WEEK Start Date: 09/30/20 Status: Orderedgabapentin 100 mg oral capsule 100 mg, Capsule, By Mouth, 10/07/20 9:00:00 EST Start Date: 10/07/20 Stop Date: 10/07/20 Status: Completedgabapentin 100 mg oral capsule 100 mg, 1, [...] II opioid drug. Start Date: 09/30/20 Status: OrderedMiraLax oral powder for reconstitution = [...] AT BEDTIME DIRECTED Start Date: 09/30/20 Status: OrderedrOPINIRole 0.25 mg oral tablet TAKE [...] Results Orders for Microbiology Reports Name Date Blood Culture 09/29/20 Blood Culture #2 09/29/20 Microbiology Reports TEST:Blood Culture STATUS:Auth (Verified) BODY SITE: SOURCE:Blood COLLECTED DATE/TIME:09/29/20 1:51 PMBlood Culture SPECIMEN DESCRIPTION : BLOOD LAC SPECIAL REQUESTS : NONE CULTURE : NO GROWTH 5 DAYS. REPORT STATUS : FINAL 10/04/2020TEST:Blood Culture, Second Order STATUS:Auth (Verified) BODY SITE: SOURCE:Blood COLLECTED DATE/TIME:09/29/20 1:29 PMBlood Culture, Second Order SPECIMEN DESCRIPTION : BLOOD SPECIAL REQUESTS : NONE CULTURE : NO GROWTH 5 DAYS. REPORT STATUS : FINAL 1Radiology Reports Exam Date Time Procedure Performing Provider Status 09/29/20 3:04 PM Chest Portable Chelsi Mancilla; Auth (Verif ied) Notes:(Chest Portable) Reason For Exam: Shortness of BreathRESULT: Chest Portable Chest Portable Hx of Present Illness: pt states she has felt short of breath for one week. Comes in today for shortness of breath and rapid heart rate from her doctors office. COMPARISON: 11/03/2016. FINDINGS: LINES AND TUBES: None. LUNGS AND PLEURA: Large lung volumes. There are increased interstitial markings throughout both lung robin. No confluent airspace opacity to suggest pneumonia. There are a few subcentimeter nodular densities in the right upper lobe. No pleural effusion. No pneumothorax. HEART, MEDIASTINUM AND JOHN: Mild prominence of the cardiac silhouette. Aorta is mildly calcified. BONES AND SOFT TISSUES: No acute abnormality. There are degenerative changes in the left glenohumeral joint. IMPRESSION: Pulmonary edema. Subcentimeter nodular densities in the right apex could represent parenchymal nodules. Further evaluation with chest CT after resolution of patient's acute illness is recommended. WSN: [id number] Ordering Physician: Annia Connelly Dictated By: Kassidy De La Vega MD Dictated Date/Time: 09/29/20 3:09 pm Reviewed By: Kassidy De La Vega MD Signed By: Kassidy De La Vega MD Signed Date/Time: 09/29/20 3:09 pm Transcribed By: NAS Transcribed Date/Time: 09/29/20 3:06 pm Vital Signs Most recent to oldest 1 2 3 [Reference Range]: Height 168 cm 168 cm 168 cm (10/07/20 10:49 AM) (10/07/20 5:59 AM) (10/06/20 11 :52 PM) Weight 62.8 kg 62.8 kg 62.3 kg (10/05/20 4:20 PM) (10/05/20 5:10 AM) (10/04/20 6:0 8 AM) Oxygen Saturation [94-100 %] 95 % 97 % 92 % (10/07/20 10:49 AM) (10/07/20 5:59 AM) *L* (10/06/20 11:52 P M) Pulse Rate [55-90 bpm] 77 bpm 77 bpm 81 bpm (10/07/20 10:49 AM) (10/07/20 5:59 AM) (10/06/20 11 :52 PM) Body Mass Index [18.5-24.99] 22.25 22.07 21. 86 (10/05/20 5:10 AM) (10/04/20 6:08 AM) (10/03/20 5:3 2 AM) Blood Pressure [90-138/55-84 109/41 mm Hg 118/40 mm Hg 102 /35 mm Hg mm Hg] (10/07/20 10:49 AM) (10/07/20 5:59 AM) (10/06/20 11 :52 PM) Respiratory Rate [16-30 17 br/min 18 br/min 18 br/mi n br/min] (10/07/20 10:49 AM) (10/07/20 10:29 AM) (10/07/20 9 :31 AM) Temperature [96.8-100.4 98.7 DegF 98.3 DegF 99.0 Deg F DegF] (10/07/20 10:49 AM) (10/07/20 5:59 AM) (10/06/20 11 :52 PM) Liters per Minute 4 L/min (10/05/20 5:43 PM) Mode of Delivery (Oxygen) Room air Room air Room a ir (10/07/20 10:49 AM) (10/07/20 5:59 AM) (10/06/20 11 :52 PM) Blood pressure sites Arm, right Arm, right Arm, right (10/07/20 10:49 AM) (10/07/20 5:59 AM) (10/06/20 11 :52 PM) Temperature Route Oral Oral Oral (10/07/20 10:49 AM) (10/07/20 5:59 AM) (10/06/20 11 :52 PM) Dry Weight 62.8 kg (09/30/20 10:19 PM) Weight Obtained Via Bed scale Bed scale Bed scale (10/05/20 5:10 AM) (10/04/20 6:08 AM) (10/03/20 5:3 2 AM) Dry Weight Obtained Via Bed scale (09/30/20 10:19 PM) Social History Social History Type Response Smoking Status Former smoker; Tobacco user in household: No; Other: pt states she quit smoking in 1991; entered on: 01/21/18 Sex Female
--- OUTSIDE RECORDS SUMMARY | 2022-06-19 00:20 | XMS_ITS | Continuity of Care Document ---
:1935 Author Organization [facility] Address [address] [place] [address]- Care Team Providers Name Role Phone Art Ortiz MD Primary Care Physician [place] [facility] [place] 06/14/21 - 07/14/21 [facility] [address] [place] [phone] [place] Allergies, Adverse Reactions, Alerts Substance Reaction [...] Inactive (IM) (oldterm)1 07/20/06 Given 1Admin Note: ViRTUAL INTERACTiVEOFI PASTEUR TRANSPORTATION ENGINEERING TECHNICIAN Medications Albuterol (Eqv-ProAir HFA) 90 mcg/inh inhalation [...] MOUTH EVERY DAY Start Date: 07/12/21 Status: OrderedEliquis 2.5 mg oral tablet TAKE ONE TABLET BY MOUTH TWICE A DAY Start Date: 07/12/21 Status: Orderedfurosemide 20 mg oral tablet TAKE ONE TABLET BY MOUTH EVERY OTHER DAY Start Date: 07/12/21 Status: Orderedgabapentin 100 mg [...]
--- OUTSIDE RECORDS SUMMARY | 2022-06-19 00:20 | XMS_ITS | Continuity of Care Document ---
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
--- OUTSIDE RECORDS SUMMARY | 2022-06-19 00:20 | XMS_ITS | Continuity of Care Document ---
:1935 Author Organization [facility] Address [address] [place] [phone]- Care Team Providers Name Role Phone Art Ortiz MD Primary Care Physician Encounter [facility] Date(s): 12/13/20 - 01/12/21 [facility] [address] [place] [id number] Attending Physician: Kasia Macias Allergies, Adverse Reactions, Alerts Substance Reaction Severity Status doxycycline Active vancomycin rash Active Dilaudid CAUSES VOMITING Active Bactrim Active Avelox Active Dexilant Active Pradaxa heart burn Active Immunizations Given and Recorded Vaccine Date Status Refusal Reason Influenza Inactive (IM) (oldterm)1 07/20/06 Given 1Admin Note: SANOFI PASTEUR MISSION ASSESSMENT SPECIALIST Medications 25 5/8 needle 25 5/8 needle, [...] EDT, Route to Pharmacy Electronically, [facility], 168, cm, 10/07/2109:49:00 EST, Height, [...] Maintenance, 11/08/20 10:54:00 EDT, Tablet, [facility], d/c warfarin, 168, cm, 10/07/20 [...] EDT, Route to Pharmacy Electronically, [facility], Partial fill upon patient request [...] Tablet By Mouth, Daily, 0 Refills, Maintenance, 03/21/16 11:57:59 Start Date: 11/08/15 Status: OrderedNexium Capsule [...] cm, 06/11/20 14:21:00 EDT, Height, 68.1, kg, 11/12/1... Start Date: 06/11/20 Status: Ordered Problem List [...]
--- OUTSIDE RECORDS SUMMARY | 2022-06-19 00:20 | XMS_ITS | Continuity of Care Document ---
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 [...]
--- OUTSIDE RECORDS SUMMARY | 2022-06-19 00:20 | XMS_ITS | Continuity of Care Document ---
:1935 Author [facility] Address [address] [place] [address], [address] [place] [phone]- Care Team Providers Name Role Phone Art Ortiz MD Primary Care Physician Encounter [facility] [place] Date(s): 10/22/19 - 10/29/19 [facility] Jean Carlos Lozada [facility] [address] [place] [address], [address] [place] [address]- Attending Physician: Santiago CALIXTO, Phillip Iqbal Allergies, Adverse Reactions, Alerts Substance Reaction Severity Status doxycycline Active vancomycin rash Active Dilaudid CAUSES VOMITING Active Bactrim Active Avelox Active Dexilant Active Pradaxa heart burn Active Immunizations Given and Recorded Vaccine Date Status Refusal Reason Influenza Inactive (IM) (oldterm)1 07/20/06 Given 1Admin Note: 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 Medications alendronate 70 mg oral tablet 1 tablet = [...] 10/02/19 Stop Date: 09/26/20 Status: OrderedAnoro Ellipta 1 puffs, Inhalation, Daily, 0 Refills, Maintenance, 03/19/19 10:41:57 EDT Start Date: 03/19/19 Status: OrderedCaltrate 600 with D 600 mg-125 u oral tablet 2 tab, 2 times a day with meals, 0, 0, 03/15/06 14:30:30, bones, Print WAGNER Number, [id number], Constant Indicator Start Date: 03/15/06 Status: OrderedCitrucel 2 gm/19 gm oral powder for reconstitution = 2 Gm, By Mouth, Daily at bedtime, 0 Refills, Maintenance, 05/12/14 1:50:08 Start Date: 05/12/14 Status: Ordereddocusate sodium 100 mg oral capsule 1 capsule = 100 mg, By Mouth, 2 times a day, 0 Refills, Maintenance, 05/15/14 7:29:44, Capsule Start Date: 05/15/14 Status: Orderedgabapentin 100 mg oral capsule See Instructions, 1 capsule By Mouth at bedtime, Refills 0, Maintenance, 12/15/16 16:23:23, Instructions Replace Required Details Start Date: 12/15/16 Status: OrderedGas-X = 80 mg, 3 times a day after meals and bedtime, 0 Refills, Maintenance, 10/16/18 11:26:12 EST Start Date: 10/16/18 Status: Orderedimmodium immodium, Refills 0, Maintenance, 12/09/18 14:00:02 EDT, Compound Start Date: 12/09/18 Status: OrderedIpratropium 0.02% inhalation gabriele 500 mcg, Neb, 4 times a day, Refills 0, Maintenance, 09/23/18 10:16:38 EST Start Date: 09/23/18 Status: Orderedlevothyroxine 75 mcg (0.075 mg) oral tablet = 75 mcg, By Mouth, Daily, 0 Refills, Maintenance, 05/15/14 7:29:48, Tablet Start Date: 05/15/14 Status: Orderedmethenamine hippurate 1 gm oral tablet 1 tablet = 1 Gm, By Mouth, 2 times a day, 0 Refills, Maintenance, 09/23/18 10:18:03 EST Start Date: 09/23/18 Status: OrderedMiraLax oral powder for reconstitution = 17 Gm, By Mouth, Daily, PRN Constipation, 0 Refills, Maintenance, 05/12/14 1:50:49 Start Date: 05/12/14 Status: OrderedMultivitamin Tablet By Mouth, Daily, 0 Refills, Maintenance, 11/08/15 11:57:59 Start Date: 11/08/15 Status: OrderedNexium Capsule 40 mg, By Mouth, Daily, Maintenance, 02/16/11 12:51:11 Start Date: 02/16/11 Status: Orderedprimidone 50 mg oral tablet See Instructions, Start 1 tab bedtime x 2 weeks, then can increase to 2 tabs at bedtime., # 60 tablet, Refills 5, Tot. Refills 5, Maintenance, 02/13/19 12:08:36 EDT, Instructions Replace Required Details, Route to Pharmacy Electronically, [id number]... Start Date: 02/13/19 Status: OrderedSingulair 10 mg oral tablet 10 mg, 1, tablet, By Mouth, Daily, Refills 0, Maintenance, 05/13/18 15:20:31 EDT Start Date: 05/13/18 Status: OrderedTylenol 8 Hour Caplet = 1,300 mg, By Mouth, Every 8 hours, 0 Refills, Maintenance, 10/16/18 11:26:35 EST Start Date: 10/16/18 Status: OrderedVitamin C By Mouth, Daily, 0 Refills, Maintenance, 10/22/19 11:47:00 EST Start Date: 10/22/19 Status: Orderedvitamin d 400iu vitamin d 400iu, Refills 0, Maintenance, 2000 iu qd, 12/09/18 13:57:16 EDT, Compound Start Date: 12/09/18 Status: Orderedwarfarin 2.5 mg oral tablet See Instructions, 1 tablet daily based on INR and advice of anticoagulation clinic, # 30 tablet, 11 Refills, Maintenance, 10/02/19 14:39:00 EST, Tablet, [facility], 167.2, cm, 10/02/19 13:38:00 EST, Height, 68.1, kg, 07/01/19 14:22:00 ES... Start Date: 10/02/19 Status: OrderedZantac 75 = 75 mg, By Mouth, 2 times a day, 0 Refills, Maintenance, 10/16/18 11:26:25 EST Start Date: 10/16/18 Status: OrderedZyrTEC 10 mg oral tablet 1 tablet = 10 mg, By Mouth, Daily, # 30 tablet, 0 Refills, Maintenance, 12/15/16 16:23:48, Tablet Start Date: 12/15/16 Status: Ordered Problem List Condition Effective Dates Status Health Status Informant AF - Atrial fibrillation(Confirmed) Active Atrophic vaginitis(Confirmed) Active Overactive bladder(Confirmed) Active Diverticulosis(Confirmed) Active Gastro-esophageal reflux Active disease(Confirmed) Hypothyroid(Confirmed) Active IBS - Irritable bowel Active syndrome(Confirmed) Menopause(Confirmed) Active MDS (myelodysplastic Active syndrome)(Confirmed) Obstructive sleep apnea(Confirmed) Active Osteopenia(Confirmed) Active Urinary Frequency(Confirmed) Active UTI [Urinary tract Active infection](Confirmed) Vital Signs Most recent to oldest [Reference Range]: 1 Height 167.2 cm (10/22/19 11:40 AM) Weight 69.3 kg (10/22/19 11:40 AM) Body Mass Index [18.5-24.99] 24.79 (10/22/19 11:40 AM) Blood Pressure [90-138/55-84 mm Hg] 122/56 mm Hg (10/22/19 11:40 AM) Blood pressure sites Arm, right (10/22/19 11:40 AM) Weight Obtained Via Standing scale (10/22/19 11:40 AM) Social History Social History Type Response Smoking Status Former smoker; Tobacco user in household: No; Other: pt states she quit smoking in 1991; entered on: 01/21/18 Sex Female
--- OUTSIDE RECORDS SUMMARY | 2022-06-19 00:20 | XMS_ITS | Continuity of Care Document ---
:1935 Author Organization [facility] Address [address] [place] [phone]- Care Team Providers Name Role Phone Art Ortiz MD Primary Care Physician Encounter [facility] [place] Date(s): 12/04/18 - 02/03/20 [facility] [address] [address]- [facility] Discharge Disposition: A-D/C Home Attending Physician: Nae Trevizo MD Admitting Physician: Nae Trevizo MD Referring Physician: Art Ortiz MD Allergies, Adverse Reactions, Alerts Substance Reaction Severity Status doxycycline Active vancomycin rash Active Dilaudid CAUSES VOMITING Active Bactrim Active Avelox Active Pradaxa heart burn Active Dexilant Active Immunizations Given and Recorded Vaccine Date Status Refusal Reason Influenza Inactive (IM) (oldterm)1 07/20/06 Given 1Admin Note: 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 Start Date: 12/31/19 Status: Ordereddocusate sodium 100 mg oral capsule [...] 02/16/11 Status: Orderedprimidone 50 mg oral tablet 100 mg, 2, tablet, By Mouth, Daily at bedtime, 2 tabs at bedtime., # 60 tablet, Refills 5, Tot. Refills 5, Maintenance, 11/14/19 14:15:00 EDT, Route to Pharmacy Electronically, [facility], 167.2, cm, 11/04/19 13:42:00 EDT, Height, 68.1,... Start Date: 11/14/19 Stop Date: 05/12/20 Status: OrderedSingulair 10 mg oral tablet 10 [...] infection](Confirmed) Vital Signs Most recent to oldest 1 2 3 [Reference Range]: Height 167.2 cm 167.2 cm 167.2 cm (01/06/20 1:31 PM) (12/02/19 1:40 PM) (11/18/19 1:4 4 PM) Weight 68.1 kg 65.5 kg (07/01/19 2:22 PM) (12/31/18 1:33 PM) Oxygen Saturation [94-100 %] 96 % (02/03/19 2:10 PM) Pulse Rate [55-90 bpm] 84 bpm 80 bpm 92 bpm (01/06/20 1:31 PM) (12/02/19 1:40 PM) *H* (11/18/19 1:44 PM ) Body Mass Index [18.5-24.99] 24.36 23.43 (07/01/19 2:22 PM) (12/31/18 1:33 PM) Blood Pressure [90-138/55-84 130/60 mm Hg 128/60 mm Hg 136 /60 mm Hg mm Hg] (01/06/20 1:31 PM) (12/02/19 1:40 PM) (11/18/19 1:4 4 PM) Respiratory Rate [16-30 18 br/min 17 br/min br/min] (02/19/19 3:00 PM) (02/03/19 2:10 PM) Temperature [96.8-100.4 DegF] 97.8 DegF 98.4 DegF 97 .9 DegF (07/01/19 2:22 PM) (02/03/19 2:10 PM) (12/31/18 1: 33 PM) Mode of Delivery (Oxygen) Room air (02/03/19 2:10 PM) Blood pressure sites Arm, right Arm, left Arm, right (01/06/20 1:31 PM) (12/02/19 1:40 PM) (11/18/19 1:4 4 PM) Temperature Route Temporal Temporal Temporal (01/06/20 1:31 PM) (12/02/19 1:40 PM) (11/18/19 1:4 4 PM) Dry Weight 68.1 kg 65.5 kg (07/01/19 2:22 PM) (12/31/18 1:33 PM) Weight Obtained Via Standing scale Standing scale (07/01/19 2:22 PM) (12/31/18 1:33 PM) Dry Weight Obtained Via Standing scale Standing scale (07/01/19 2:22 PM) (12/31/18 1:33 PM) Social History Social History Type Response Smoking Status Former smoker; Tobacco user in household: No; Other: pt states she quit smoking in 1991; entered on: 01/21/18 Sex Female
--- OUTSIDE RECORDS SUMMARY | 2022-06-19 00:20 | XMS_ITS | Continuity of Care Document ---
:1935 Author Organization [facility] Address [address] [address]- Care Team Providers Name Role Phone Art Ortiz MD Primary Care Physician Encounter [facility] [place] Date(s): 02/27/20 - 03/28/20 [facility] [address] [place] [phone]- [facility] Allergies, Adverse Reactions, Alerts Substance Reaction Severity Status doxycycline Active vancomycin rash Active Dilaudid CAUSES VOMITING Active Bactrim Active Avelox Active Dexilant Active Pradaxa heart burn Active Immunizations Given and Recorded Vaccine Date Status Refusal Reason Influenza Inactive (IM) (oldterm)1 07/20/06 Given 1Admin Note: 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 Refills 0, Maintenance, Use to give EPO, 02/17/20 11:41:00 EDT, Supply Start Date: 02/17/20 Status: Ordered3 mL syringe 3 mL syringe, See Instructions, # 60 each, Refills 1, Tot. Refills 1, Maintenance, Use daily to giveEPO, 02/17/20 11:40:00 EDT, Compound Start Date: 02/17/20 Status: OrderedAlcohol Pads See Instructions, # 30 each, Maintenance, Use as needed, 02/17/20 11:42:00 EDT, Supply Start Date: 02/17/20 Status: Orderedalendronate 70 mg oral tablet 1 tablet = 70 mg, By Mouth, Every week, # 4 tablet, 13 Refills, Maintenance, 10/22/19 12:05:00 EST, Tablet, [facility], 167.2, cm, 10/22/19 11:40:00 EST, Height, 68.1, kg, 11/12/19 14:22:00 EST, Dry Weight Start Date: 10/22/19 Status: Orderedamiodarone 200 mg oral tablet 200 mg, 1, tablet, By Mouth, Daily, # 30 tablet, Refills 11, Tot. Refills 11, Maintenance, 10/02/19 14:38:00 EST, Route to Pharmacy Electronically, [facility], 167.2, cm, 10/02/19 13:38:00 EST, [...] Maintenance, 12/31/19 11:15:00 EDT, Tablet, [facility], 167.2, cm, 12/02/19 13:40:00 EDT, Height, 68.1, kg, 11/... Start Date: 12/31/19 Status: Ordereddocusate sodium 100 [...] Start Date: 11/14/19 Stop Date: 05/12/20 Status: OrderedRetacrit 40,000 units/mL preservative-free injectable solution See Instructions, 40,000 U SQ every 14 days, # 2 mL, 11 Refills, Maintenance, 02/17/20 11:52:00 EDT Start Date: 02/17/20 Status: OrderedSingulair 10 mg oral tablet 10 [...] advice of anticoagulation clinic, # 60 tablet, 2 Refills, Maintenance, 02/27/20 13:37:00 EDT, Tablet, [facility], 167.2, cm, 01/06/20 13:31:00 EDT, Height, 68.1, kg, ... Start Date: 02/27/20 Status: OrderedZantac 75 = 75 mg, By [...]
--- OUTSIDE RECORDS SUMMARY | 2022-06-19 00:20 | XMS_ITS | Continuity of Care Document ---
:1935 Author Organization [facility] Address [address] [place] [phone]- Care Team Providers Name Role Phone Art Ortiz MD Primary Care Physician Encounter [facility] [place] Date(s): 09/14/21 - 10/14/21 [facility] [address] [place] [phone]- Allergies, Adverse Reactions, Alerts Substance Reaction Severity [...] Inactive (IM) (oldterm)1 07/20/06 Given 1Admin Note: Jildy SAFETY LEADER Medications Albuterol (Eqv-ProAir HFA) 90 mcg/inh inhalation [...] 120 tablet, 0 Refills, Maintenance, 07/29/21 15:41:00 EST, [facility], 168, cm... Start Date: 07/29/21 Stop Date: 08/28/21 Status: Orderedprimidone 50 mg oral tablet TAKE TWO TABLETS BY MOUTH AT BEDTIME Start Date: 07/12/21 Status: OrderedrOPINIRole 1 mg oral tablet TAKE ONE TABLET BY MOUTH THREE TIMES A DAY Start Date: 07/12/21 Status: OrderedZofran 4 mg oral tablet 1 tablet = 4 mg, By Mouth, Every 8 hours, PRN Nausea & Vomiting, # 10 tablet, 1 Refills, Maintenance, 10/12/21 11:04:00 EST, Tablet, [facility], Partial fill upon patient request if the prescription is for a schedule II opioid drug., 168... Start Date: 10/12/21 Status: Ordered Problem List Condition Effective Dates [...]
--- OUTSIDE RECORDS SUMMARY | 2022-06-19 00:20 | XMS_ITS | Continuity of Care Document ---
:1935 Author Organization [facility] Address [address] [facility], 3rd Floor, [address] [place] [address]- Care Team Providers Name Role Phone Art Ortiz MD Primary Care Physician Encounter [facility] [place] Date(s): 01/17/20 - 05/16/20 [facility] [address], [address], [address] [place] [address]- [facility] Attending Physician: Lexus Mcgregor MD Admitting Physician: Lexus Mcgregor MD Allergies, Adverse Reactions, Alerts Substance Reaction Severity Status doxycycline Active vancomycin rash Active Dilaudid CAUSES VOMITING Active Bactrim Active Avelox Active Dexilant Active Pradaxa heart burn Active Immunizations Given and Recorded Vaccine Date Status Refusal Reason Influenza Inactive (IM) (oldterm)1 07/20/06 Given 1Admin Note: 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 25 5/8 needle 25 5/8 needle, [...] mcg/inh inhalation aerosol 2 puffs, Inhalation, Every 6 hours, 0 Refills, Maintenance, 05/14/20 12:09:00 [...] Maintenance, 141:50:08 EDT Start Date: 05/12/14 Status: OrderedCoumadin 1 mg [...] times a day after meals and bedtime, PRN Other, 0 Refills, Maintenance, 10/16/18 11:26:12EST Start Date: 10/16/18 Status: Orderedimmodium immodium, PRN Other, Refills 0, Maintenance, 12/09/18 14:00:02 EDT, Compound Start Date: 12/09/18 Status: OrderedLactulose By Mouth, Daily, PRN as needed for constipation, 0 Refills, Maintenance, 05/14/20 12:16:00 EDT Start Date: 05/14/20 Status: Orderedlevothyroxine 75 mcg (0.075 mg) oral tablet = 75 mcg, By Mouth, Daily, 0 Refills, Maintenance, 05/15/14 7:29:48, Tablet Start Date: 05/15/14 Status: OrderedMiraLax oral powder for reconstitution = [...] 11/14/19 14:15:00 EDT, Route to Pharmacy Electronically, [facility], 167.2, cm, 11/04/19 13:42:00 EDT, Height, 68.1,... Start Date: 11/14/19 Stop Date: 05/12/20 Status: OrderedRetacrit 40,000 units/mL preservative-free injectable solution See Instructions, 40,000 U SQ every 7 days, # 2 mL, 11 Refills, Maintenance, 04/09/20 12:29:00 EDT Start Date: 04/09/20 Status: OrderedSingulair 10 mg oral tablet 10 [...] 2 Refills, Maintenance, 02/27/20 13:37:00 EDT, Tablet, [facility], 167.2, cm, 01/06/20 13:31:00 EDT, Height, 68.1, kg, ... Start Date: 02/27/20 Status: Ordered Problem List Condition Effective Dates [...]
--- OUTSIDE RECORDS SUMMARY | 2022-06-19 00:20 | XMS_ITS | Continuity of Care Document ---
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 Refills 5, Maintenance, 10/13/20 7:37:00 EST, Route to Pharmacy Electronically, [facility], 168, cm, 10/07/20 10:49:00EST, Height, 62.8, kg, 09/30/20 23:50:00 EST, Dry Weight Start Date: 10/13/20 Stop Date: 04/11/21 Status: OrderedAnoro Ellipta 62.5 mcg-25 mcg/inh inhalation [...] Height 167.2 cm 167.2 cm 167.2 cm (09/24/20 2:34 PM) (09/17/20 2:06 PM) (09/10/20 2:20 PM) Oxygen Saturation [94-100 %] 97 % (09/10/20 2:20 PM) Pulse Rate [55-90 bpm] 107 bpm 85 bpm 74 bpm *H* (09/17/20 2:06 PM) (09/10/20 2:20 PM) (09/24/20 2:34 PM) Blood Pressure [90-138/55-84 mm 126/58 mm Hg 125/62 mm Hg 133/60 mm Hg Hg] (09/24/20 2:34 PM) (09/17/20 2:06 PM) (09/10/20 2:20 PM) Blood pressure sites Arm, right Arm, right Arm, right (09/24/20 2:34 PM) (09/10/20 2:20 PM) (09/03/20 2:37 PM) Temperature Route Temporal Temporal Temporal (09/24/20 2:34 PM) (09/17/20 2:06 PM) (09/10/20 2:20 PM) Social History Social History Type Response Smoking Status Former smoker; Tobacco user in household: No; Other: pt states she quit smoking in 1991; entered on: 01/21/18 Sex
--- OUTSIDE RECORDS SUMMARY | 2022-06-19 00:20 | XMS_ITS | Continuity of Care Document ---
:1935 Author Organization [facility] Address [address] [place] [address]- Care Team Providers Name Role Phone Art Ortiz MD Primary Care Physician Encounter [facility] [place] Date(s): 10/02/19 - 10/12/19 [facility] [address] [place] [address]- [facility] Attending Physician: Admtr, Ar8 Allergies, Adverse Reactions, Alerts Substance Reaction Severity Status doxycycline Active vancomycin rash Active Dilaudid CAUSES VOMITING Active Bactrim Active Avelox Active Dexilant Active Pradaxa heart burn Active Immunizations Given and Recorded Vaccine Date Status Refusal Reason Influenza Inactive (IM) (oldterm)1 07/20/06 Given 1Admin 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: 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 Start Date: 02/13/19 Status: OrderedSingulair 10 mg oral tablet 10 mg, 1, tablet, By Mouth, Daily, Refills 0, Maintenance, 05/13/18 15:20:31 EDT Start Date: 05/13/18 Status: OrderedTylenol 8 Hour Caplet = 1,300 mg, By Mouth, Every 8 hours, 0 Refills, Maintenance, 10/16/18 11:26:35 EST Start Date: 10/16/18 Status: Orderedvitamin d 400iu vitamin d 400iu, [...] Social History Type Response Smoking Status Former smoker, quit more jeremías n 30 days ago entered on: 07/12/18 Sex Female
--- OUTSIDE RECORDS SUMMARY | 2022-06-19 00:20 | XMS_ITS | Continuity of Care Document ---
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 Start Date: 07/29/21 Stop Date: 08/28/21 [...]
--- OUTSIDE RECORDS SUMMARY | 2022-06-19 00:20 | XMS_ITS | Continuity of Care Document ---
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 [...]
--- OUTSIDE RECORDS SUMMARY | 2022-06-19 00:20 | XMS_ITS | Continuity of Care Document ---
:1935 Author Organization [facility] Address [address] [place] [address]- Care Team Providers Name Role Phone Art Ortiz MD Primary Care Physician Encounter [facility] Date(s): 05/26/22 - 06/06/[address] [address]- Encounter Diagnosis Hypotension (Final) - 05/26/22 Weakness (Final) - 05/26/22 Dizziness (Final) - 05/26/22 Poor appetite (Final) - 05/26/22 Discharge Disposition: A-Transfer SNF Attending Physician: Maribel Tarango MD Admitting Physician: Say Becerril MD Referring Physician: Not on Staff, Referring MD Allergies, Adverse Reactions, Alerts Substance Reaction Severity Status doxycycline Active vancomycin rash Active Pradaxa heart burn Active Dilaudid CAUSES VOMITING Active Bactrim Active Avelox Active Dexilant Active Immunizations Given and Recorded Vaccine Date Status Refusal Reason SARS-CoV-2 mRNA ([id number]) vax 12/12/21 Recorde d SARS-CoV-2 (COVID-19) mRNA BNT-162b2 vac 05/23/21 Recorde d SARS-CoV-2 (COVID-19) mRNA BNT-162b2 vac 11/19/20 Recorde d SARS-CoV-2 (COVID-19) mRNA BNT-162b2 vac 10/26/20 Recorde d Influenza Inactive (IM) (oldterm)1 07/20/06 Given 1Admin Note: SANOFI PASTEUR [employer] Medications amiodarone 200 mg oral tablet 400 mg, 2, tablet, By Mouth, Daily, Refills 0, Maintenance, 06/06/22 11:45:00 EDT, Partial fill uponpatient request if the prescription is for a schedule II opioid drug. Start Date: 06/06/22 Status: OrderedAnoro Ellipta 62.5 mcg-25 mcg/inh inhalation powder 1 puffs, Inhalation, Daily Start Date: 07/12/21 Status: Orderedcarboxymethylcellulose 1 drops, Eyes, Both, 2 times a day, 0 Refills, Maintenance, 05/29/22 11:22:00 EDT, Partial fill uponpatient request if the prescription is for a schedule II opioid drug. Start Date: 05/29/22 Status: OrderedColace sodium 100 mg oral capsule 100 mg, 1, capsule, By Mouth, 2 times a day, Refills 0, Maintenance, 05/29/22 11:23:00 EDT, Partial fill upon patient request if the prescription is for a schedule II opioid drug. Start Date: 05/29/22 Status: OrderedDulcolax 10 mg rectal suppository 1 supp = 10 mg, Rectally, Daily, PRN as needed for constipation, 0 Refills, Maintenance, 05/29/22 11:22:00 EDT, Partial fill upon patient request if the prescription is for a schedule II opioid drug. Start Date: 05/29/22 Status: OrderedFleet Enema 133 mL, Rectally, Daily, PRN as needed for constipation, 0 Refills, Maintenance, 05/29/22 11:23:00 EDT, Partial fill upon patient request if the prescription is for a schedule II opioid drug. Start Date: 05/29/22 Status: Orderedgabapentin 100 mg oral capsule 100 mg, Capsule, By Mouth, 06/06/22 9:00:00 EDT Start Date: 06/06/22 Stop Date: 06/06/22 Status: Completedgabapentin 100 mg oral capsule 100 mg, Capsule, By Mouth, 06/05/22 21:00:00 EDT Start Date: 06/05/22 Stop Date: 06/05/22 Status: Completedgabapentin 100 mg oral capsule 200 mg, 2, capsule, By Mouth, Daily at bedtime Start Date: 07/12/21 Status: Orderedhydrocortisone 1% topical cream 1 application, Topically, Every 24 hours, PRN Rash, 0 Refills, Maintenance, 05/29/22 11:24:00 EDT, Partial fill upon patient request if the prescription is for a schedule II opioid drug. Start Date: 05/29/22 Status: Orderedlactulose 10 gm/15 ml oral syrup 15 mL = 10 Gm, By Mouth, Daily, PRN Constipation, 0 Refills, Maintenance, 06/06/22 11:45:00 EDT, Syrup, Partial fill upon patient request if the prescription is for a schedule II opioid drug. Start Date: 06/06/22 Status: Orderedlevothyroxine 0.1 mg oral tablet 1 tablet = 100 mcg, By Mouth, Daily, # 30 tablet, 0 Refills, Maintenance, 05/26/22 21:58:00 EDT, Tablet, Partial fill upon patient request if the prescription is for a schedule II opioid drug. Start Date: 05/26/22 Status: Orderedlidocaine 5% topical film 2 film, Topically, Daily, Apply 1 patch to lower back and right hip, 0 Refills, Maintenance, 05/26/22 21:58:00 EDT, Film, Partial fill upon patient request if the prescription is for a schedule II opioid drug. Start Date: 05/26/22 Status: Orderedmelatonin 5 mg oral tablet 1 tablet = 5 mg, By Mouth, Daily at bedtime, 0 Refills, Maintenance, 05/29/22 11:27:00 EDT, Partial fill upon patient request if the prescription is for a schedule II opioid drug. Start Date: 05/29/22 Status: Orderedmenthol-zinc oxide 0.44%-20.6% topical ointment 1 application, Topically, 2 times a day, 0 Refills, Maintenance, 05/29/22 11:22:00 EDT, Partial fillupon patient request if the prescription is for a schedule II opioid drug. Start Date: 05/29/22 Status: Orderedmidodrine 5 mg oral tablet 5 mg, Tablet, By Mouth, 06/06/22 9:00:00 EDT Start Date: 06/06/22 Stop Date: 06/06/22 Status: Completedmidodrine 5 mg oral tablet 5 mg, Tablet, By Mouth, 06/05/22 21:00:00 EDT Start Date: 06/05/22 Stop Date: 06/05/22 Status: Completedmidodrine 5 mg oral tablet 5 mg, 1, tablet, By Mouth, 3 times a day, Refills 0, Maintenance, 06/06/22 11:46:00 EDT, Partial fill upon patient request if the prescription is for a schedule II opioid drug. Start Date: 06/06/22 Status: Orderedmontelukast 10 mg oral tablet 10 mg, 1, tablet, By Mouth, Daily at bedtime Start Date: 07/12/21 Status: Orderedomeprazole 20 mg oral enteric coated capsule 1 capsule = 20 mg, By Mouth, Daily, # 30 capsule, 0 Refills, Maintenance, 05/26/22 21:58:00 EDT, EC Capsule, Partial fill upon patient request if the prescription is for a schedule II opioid drug. Start Date: 05/26/22 Status: Orderedprimidone 50 mg oral tablet 100 mg, 2, tablet, By Mouth, Daily at bedtime, Refills 0, Maintenance, 06/06/22 11:46:00 EDT, Partial fill upon patient request if the prescription is for a schedule II opioid drug. Start Date: 06/06/22 Status: OrderedrOPINIRole 3 mg oral tablet 0.5 tablet = 1.5 mg, By Mouth, 3 times a day, 0 Refills, Maintenance, 05/26/22 21:58:00 EDT, Tablet,Partial fill upon patient request if the prescription is for a schedule II opioid drug. Start Date: 05/26/22 Stop Date: 06/25/22 Status: OrderedRytary 23.75 mg-95 mg oral capsule, extended release 2 capsule, By Mouth, 3 times a day, 0 Refills, Maintenance, 05/26/22 21:58:00 EDT, ER Capsule, Partial fill upon patient request if the prescription is for a schedule II opioid drug. Start Date: 05/26/22 Status: Orderedsabriomyces lyssadii lyo 250 mg oral capsule 1 capsule = 250 mg, By Mouth, 2 times a day, 0 Refills, Maintenance, 05/29/22 11:31:00 EDT, Partial fill upon patient request if the prescription is for a schedule II opioid drug. Start Date: 05/29/22 Status: OrderedSenna 8.6 mg oral tablet 17.2 mg, 2, tablet, By Mouth, Daily, PRN, Refills 0, Maintenance, as needed for constipation, 05/29/22 11:32:00 EDT, Partial fill upon patient request if the prescription is for a schedule II opioid drug. Start Date: 05/29/22 Status: OrderedTylenol 325 mg oral tablet 975 mg, 3, tablet, By Mouth, Every 8 hours, Refills 0, Maintenance, 05/29/22 11:18:00 EDT, Partial fill upon patient request if the prescription is for a schedule II opioid drug. Start Date: 05/29/22 Status: OrderedVitamin C 500 mg oral tablet 1 tablet = 500 mg, By Mouth, Daily, 0 Refills, Maintenance, 06/06/22 11:47:00 EDT, Tablet, Partial fill upon patient request if the prescription is for a schedule II opioid drug. Start Date: 06/06/22 Status: Orderedzinc sulfate 220 mg oral capsule 220 mg, 1, capsule, By Mouth, Daily, # 7 capsule, Refills 0, Maintenance, 06/06/22 11:46:00 EDT, Partial fill upon patient request if the prescription is for a schedule II opioid drug. Start Date: 06/06/22 Stop Date: 06/13/22 Status: OrderedZofran 4 mg oral tablet 1 tablet = 4 mg, By Mouth, Every 8 hours, PRN Nausea & Vomiting, # 10 tablet, 1 Refills, Maintenance, 10/12/21 11:04:00 EST, Tablet, Partial fill upon patient request if the prescription is for a schedule II opioid drug., 168, cm, 10/05/21 12:06:00 ES... Start Date: 10/12/21 Status: Ordered Problem List Condition Confirmation Course Effective Dates Status Health I nformant Status AF - Atrial Confirmed Active fibrillation Atrophic vaginitis Confirmed Active Overactive bladder Confirmed Active Diverticulosis Confirmed Active Essential tremor Confirmed Active Gastro-esophageal Confirmed Active reflux disease Hypothyroid Confirmed Active IBS - Irritable bowel Confirmed Active syndrome Menopause Confirmed Active MDS (myelodysplastic Confirmed Active syndrome) Obstructive sleep Confirmed Active apnea Osteopenia Confirmed Active Restless leg syndrome Confirmed Active Urinary Frequency Confirmed Active UTI [Urinary tract Confirmed Active infection] Vital Signs Most recent to oldest 1 2 3 [Reference Range]: Height 168 cm 168 cm 168 cm (06/06/22 7:36 AM) (06/05/22 8:53 AM) (06/04/22 7:54 AM) Weight 57.7 kg 57.7 kg 50 kg (05/27/22 11:06 PM) (05/27/22 10:28 PM) (05/27/22 : PM) Oxygen Saturation [94-100 %] 97 % 94 % 99 % (06/06/22 7:36 AM) (06/05/22 7:00 PM) (06/05/22 8:53 AM) Pulse Rate [55-90 bpm] 90 bpm 90 bpm 87 bpm (06/06/22 9:33 AM) (06/06/22 7:36 AM) (06/05/22:25 PM) Body Mass Index [18.5-24.99 20.44 kg/m2 20.44 kg/m2 17.7 2 kg/m2 kg/m2] (05/27/22 11:06 PM) (05/27/22 10:28 PM) *L* (05/27/22: PM ) Blood Pressure [90-138/55-84 92/51 mm Hg 92/51 mm Hg 111 /50 mm Hg mm Hg] (06/06/22 9:33 AM) (06/06/22 7:36 AM) (06/05/22:25 PM) Respiratory Rate [16-30 18 br/min 19 br/min 20 br/mi n br/min] (06/06/22 9:32 AM) (06/06/22 7:36 AM) (06/05/22 9:25 PM) Temperature [96.8-100.4 97.4 DegF 97.6 DegF 97.3 Deg F DegF] (06/06/22 7:36 AM) (06/05/22 7:00 PM) (06/05/22 8:53 AM) Mode of Delivery (Oxygen) Room air Room air Room a ir (06/06/22 7:36 AM) (06/05/22 7:00 PM) (06/05/22 8:53 AM) Blood pressure sites Arm, right Arm, right Arm, right (06/06/22:36 AM) (06/05/22 7:00 PM) (06/05/22 8:53 AM) Temperature Route Oral Oral Oral (06/06/22 7:36 AM) (06/05/22 7:00 PM) (06/05/22 8:53 AM) Dry Weight 57.7 kg 50 kg 50 kg (05/27/22 10:28 PM) (05/27/22 5:22 PM) (05/27/22 12 :40 PM) Social History Social History Type Response Smoking Status Former smoker; Tobacco user in household: No; Other: pt states she quit smoking in 1991; entered on: 01/21/18 Sex Patient Care team information PersonnelName: Diana CALIXTO, Art Bradshaw Address: Address: [address] [place] [address]
--- OUTSIDE RECORDS SUMMARY | 2022-06-19 00:20 | XMS_ITS | Continuity of Care Document ---
:1935 Author Organization [facility] Address [address] [place] [address], [address] [place] [address]- Care Team Providers Name Role Phone Art Ortiz MD Primary Care Physician En[facility] Date(s): 11/01/20 [facility] [address] [place] [address], [address] [place] [address]- Allergies, Adverse Reactions, Alerts Substance Reaction Severity Status doxycycline Active vancomycin rash Active Dilaudid CAUSES VOMITING Active Bactrim Active Avelox Active Dexilant Active Pradaxa heart burn Active Immunizations Given and Recorded Vaccine Date Status Refusal Reason Influenza Inactive (IM) (oldterm)1 07/20/06 Given 1Admin Note: 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
--- OUTSIDE RECORDS SUMMARY | 2022-06-19 00:20 | XMS_ITS | Continuity of Care Document ---
:1935 Author Organization [facility] Address [address] [place] [address]- Care Team Providers Name Role Phone Art Ortiz MD Primary Care Physician Encounter [facility] Date(s): 04/28/21 - 05/28/21 [facility] [address] [address] Allergies, Adverse Reactions, Alerts Substance Reaction Severity Status doxycycline Active vancomycin rash Active Dilaudid CAUSES VOMITING Active Bactrim Active Avelox Active Dexilant Active Pradaxa heart burn Active Immunizations Given and Recorded Vaccine Date Status Refusal Reason Influenza Inactive (IM) (oldterm)1 07/20/06 Given 1Admin Note: SANOFI PASTEUR 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
--- OUTSIDE RECORDS SUMMARY | 2022-06-19 00:21 | XMS_ITS | Continuity of Care Document ---
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 [...]
--- OUTSIDE RECORDS SUMMARY | 2022-06-19 00:21 | XMS_ITS | Continuity of Care Document ---
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
--- OUTSIDE RECORDS SUMMARY | 2022-06-19 00:21 | XMS_ITS | Continuity of Care Document ---
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 Start Date: 07/12/21 Status: Orderedmetoprolol 50 mg oral tablet, extended release 50 mg, 1, tablet, By Mouth, Daily, # 30 tablet, Refills 0, Tot. Refills 0, Maintenance, 12/13/20 14:51:00 EDT, Route to Pharmacy Electronically, [id number], Partial fill upon patient request [...]
--- OUTSIDE RECORDS SUMMARY | 2022-06-19 00:21 | XMS_ITS | Continuity of Care Document ---
:1935 Author Organization [facility] Address [address] [place] [address]- Care Team Providers Name Role Phone Art Ortiz MD Primary Care Physician [place] [facility] [place]s): 11/08/20 - 12/08/20 [facility] [address] [place] [address]- Allergies, Adverse Reactions, Alerts Substance Reaction Severity Status doxycycline Active vancomycin rash Active Dilaudid CAUSES VOMITING Active Bactrim Active Avelox Active Dexilant Active Pradaxa heart burn Active Immunizations Given and Recorded Vaccine Date Status Refusal Reason Influenza Inactive (IM) (oldterm)1 07/20/06 Given 1Admin Note: 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
--- OUTSIDE RECORDS SUMMARY | 2022-06-19 00:21 | XMS_ITS | Continuity of Care Document ---
:1935 Author Organization [facility] Address [address] [place] [address]- Care Team Providers Name Role Phone Art Ortiz MD Primary Care Physician Encounter [facility] Date(s): 11/09/20 - 12/09/20 [facility] [address] [address]- Allergies, Adverse Reactions, Alerts Substance Reaction Severity Status doxycycline Active vancomycin rash Active Dilaudid CAUSES VOMITING Active Bactrim Active Avelox Active Dexilant Active Pradaxa heart burn Active Immunizations Given and Recorded Vaccine Date Status Refusal Reason Influenza Inactive (IM) (oldterm)1 07/20/06 Given 1Admin Note: 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
--- OUTSIDE RECORDS SUMMARY | 2022-06-19 00:21 | XMS_ITS | Continuity of Care Document ---
:1935 Author Organization [facility] Address [address] [place] [address]- Care Team Providers Name Role Phone Art Ortiz MD Primary Care Physician [place] [facility] [place](s): 10/21/20 - 11/20/20 [facility] [address] [place] [address] Attending Physician: Admtr, Ar8 Allergies, Adverse Reactions, Alerts Substance Reaction Severity Status doxycycline Active vancomycin rash Active Pradaxa heart burn Active Dilaudid CAUSES VOMITING Active Bactrim Active Avelox Active Dexilant Active Immunizations Given and Recorded Vaccine Date Status Refusal Reason Influenza Inactive (IM) (oldterm)1 07/20/06 Given 1Admin Note: SANOFI PASTEUR 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
--- OUTSIDE RECORDS SUMMARY | 2022-06-19 00:21 | XMS_ITS | Continuity of Care Document ---
:1935 Author Organization [facility] Address [address] [place] [address]- Care Team Providers Name Role Phone Art Ortiz MD Primary Care Physician [place] [facility] [place] - 04/24/20 [facility] [address] [place] [address]- [facility] Allergies, Adverse Reactions, Alerts Substance Reaction Severity Status doxycycline Active vancomycin rash Active Dilaudid CAUSES VOMITING Active Bactrim Active Avelox Active Dexilant Active Pradaxa heart burn Active Immunizations Given and Recorded Vaccine Date Status Refusal Reason Influenza Inactive (IM) (oldterm)1 07/20/06 Given 1Admin Note: 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
--- OUTSIDE RECORDS SUMMARY | 2022-06-19 00:21 | XMS_ITS | Continuity of Care Document ---
:1935 Author Organization [facility] Address [address] [place] [address]- Care Team Providers Name Role Phone Art Ortiz MD [id number]03/[facility] [address] [place] [address]- Discharge Disposition: A-D/C Home Attending Physician: Viktoriya Cantu MD Admitting Physician: Viktoriya Cantu MD Referring Physician: Art Ortiz MD Allergies, [...] (IM) (oldterm)1 07/20/06 Given 1Admin Note: SANOFI Lazarus Effect HYPERION ADMINISTRATOR Medications Albuterol (Eqv-ProAir HFA) 90 mcg/inh inhalation [...] Height 168 cm 168 cm 168 cm (01/17/22 11:16 AM) (12/27/21 11:20 AM) (12/27/21 1 0:18 AM) Weight 59.4 kg 62.7 kg 65.4 kg (10/05/21 12:06 PM) (07/28/21 10:53 AM) (06/17/21 2:43 PM) Oxygen Saturation [94-100 92 % 94 % 100 % %] *L* (11/18/21 12:37 PM) (09/16/21 11:15 AM) (12/09/21 11:34 AM) Pulse Rate [55-90 bpm] 98 bpm 72 bpm 71 bpm *H* (12/27/21 11:20 AM) (12/27/21 10:1 8 AM) (01/17/22 11:16 AM) Body Mass Index 21.05 22.22 23.17 [18.5-24.99] (10/05/21 12:06 PM) (07/28/21 10:53 AM) (06/17/21 2:43 PM) Blood Pressure 96/62 mm Hg 125/69 mm Hg 131/60 mm Hg [90-138/55-84 mm Hg] (01/17/22 11:16 AM) (12/27/21 11:20 AM) (12/27 10:18 AM) Temperature [96.8-100.4 97 DegF 97.2 DegF 97.2 Deg F DegF] (12/27/21 11:20 AM) (12/09/21 11:34 AM) (10/05/21 1 2:06 PM) Mode of Delivery (Oxygen) Room air Room air Room a ir (12/09/21 11:34 AM) (11/18/21 12:37 PM) (08/03/21 1 0:32 AM) Blood pressure sites Arm, left Arm, right Arm, right (01/17/22 11:16 AM) (12/27/21 11:20 AM) (12/09/21 1 1:34 AM) Temperature Route Temporal Temporal Temporal (01/17/22 11:16 AM) (12/27/21 11:20 AM) (12/27/21 1 0:18 AM) Dry Weight 59.4 kg 62.7 kg 65.4 kg (10/05/21 12:06 PM) (07/28/21 10:53 AM) (06/17/21 2:43 PM) Weight Obtained Via Standing scale Standing scale Standing sca le (10/05/21 12:06 PM) (07/28/21 10:53 AM) (06/17/21 2:43 PM) Dry Weight Obtained Via Standing scale Standing scale Standing scale (2/16/22 12:06 PM) (07/28/21 10:53 AM) (06/17/21 2:43 PM) Social History Social History Type Response Smoking Status Former smoker; Tobacco user in household: No; Other: pt states she quit smoking in 1991; entered on: 01/21/18 Sex
--- OUTSIDE RECORDS SUMMARY | 2022-06-19 00:21 | XMS_ITS | Continuity of Care Document ---
:1935 Author Organization [facility] Address [address] [address]- Care Team Providers Name Role Phone Art Ortiz MD Primary Care Physician En[place] [facility] [place] Date(s): 03/29/20 - 04/28/20 [facility] [address] [address]- [facility] Allergies, Adverse Reactions, Alerts Substance Reaction Severity Status doxycycline Active vancomycin rash Active Dilaudid CAUSES VOMITING Active Bactrim Active Avelox Active Dexilant Active Pradaxa heart burn Active Immunizations Given and Recorded Vaccine Date Status Refusal Reason Influenza Inactive (IM) (oldterm)1 07/20/06 Given 1Admin Note: 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
--- OUTSIDE RECORDS SUMMARY | 2022-06-19 00:21 | XMS_ITS | Continuity of Care Document ---
:1935 Author Organization [facility] Address [address] [place] [address]- Care Team Providers Name Role Phone Art Ortiz MD Primary Care Physician [place] [facility] [place] [facility] [id number] Date(s): 05/03/21 - 07/13/21 [facility] [address] [place] [address]- Attending Physician: Govind Willams Admitting Physician: Govind Willams Referring Physician: rAt Ortiz MD Allergies, Adverse Reactions, Alerts Substance [...] Inactive (IM) (oldterm)1 07/20/06 Given 1Admin Note: [employer]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
--- OUTSIDE RECORDS SUMMARY | 2022-06-19 00:21 | XMS_ITS | Continuity of Care Document ---
:1935 Author Organization [facility] Address [address] [place] [address]- Care Team Providers Name Role Phone Art Ortiz MD Primary Care Physician [place] [facility] [place] [facility] [id number] Date(s): 12/01/20 - 12/31/20 [facility] [address] [place], [place] [address] Attending Physician: Admtr, Negro8 Admitting Physician: Admtr, Ar8 Referring Physician: Admtr, Ar8 Allergies, Adverse Reactions, Alerts Substance Reaction Severity Status doxycycline Active vancomycin rash Active Dilaudid CAUSES VOMITING Active Bactrim Active Avelox Active Dexilant Active Pradaxa heart burn Active Immunizations Given and Recorded Vaccine Date Status Refusal Reason Influenza Inactive (IM) (oldterm)1 07/20/06 Given 1Admin Note: 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
--- OUTSIDE RECORDS SUMMARY | 2022-06-19 00:21 | XMS_ITS | Continuity of Care Document ---
:1935 Author Organization [facility] Address [address] [place] [address]- Care Team Providers Name Role Phone Art Ortiz MD Primary Care Physician [facility] Date(s): 12/13/20 - 01/12/21 [facility] [address] [place] [address] Allergies, Adverse Reactions, Alerts Substance Reaction Severity Status doxycycline Active vancomycin rash Active Dilaudid CAUSES VOMITING Active Bactrim Active Avelox Active Dexilant Active Pradaxa heart burn Active Immunizations Given and Recorded Vaccine Date Status Refusal Reason Influenza Inactive (IM) (oldterm)1 07/20/06 Given 1Admin Note: 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 Start Date: 10/23/20 Status: Ordered Problem List Condition Effective Dates [...]
--- OUTSIDE RECORDS SUMMARY | 2022-06-19 00:21 | XMS_ITS | Continuity of Care Document ---
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
--- OUTSIDE RECORDS SUMMARY | 2022-06-19 00:21 | XMS_ITS | Continuity of Care Document ---
:1935 Author Organization [facility] Address [address] [place] [address], [address] [place] [address]- Care Team Providers Name Role Phone Art Ortiz MD Primary [id number] Date(s): 10/22/19 - 11/01/19 [facility] [address] [place] [address], [address] [place] [address]- Attending Physician: Kasia Macias Admitting Physician: Kasia Macias Referring Physician: AdmtrKasia Allergies, Adverse Reactions, Alerts Substance Reaction Severity Status doxycycline Active vancomycin rash Active Dilaudid CAUSES VOMITING Active Bactrim Active Avelox Active Dexilant Active Pradaxa heart burn Active Immunizations Given and Recorded Vaccine Date Status Refusal Reason Influenza Inactive (IM) (oldterm)1 07/20/06 Given 1Admin Note: SANOFI PASTEUR GAS ATTENDANT Medications alendronate 70 mg oral tablet 1 [...] Replace Required Details, Route to Pharmacy Electronically, [id number]... Start Date: 02/13/19 Status: OrderedSingulair 10 mg [...]
--- OUTSIDE RECORDS SUMMARY | 2022-06-19 00:21 | XMS_ITS | Continuity of Care Document ---
:1935 Author Organization [facility] Address [address] [place] [address]- Care Team Providers Name Role Phone Art Ortiz MD Primary Care Physician [facility] Date(s): 05/17/20 - 06/16/20 [facility] [address] [place] [address]- [facility] Attending Physician: Kasia Macias Allergies, Adverse Reactions, Alerts Substance Reaction Severity Status doxycycline Active vancomycin rash Active Dilaudid CAUSES VOMITING Active Bactrim Active Avelox Active Dexilant Active Pradaxa heart burn Active Immunizations Given and Recorded Vaccine Date Status Refusal Reason Influenza Inactive (IM) (oldterm)1 07/20/06 Given 1Admin Note: SANOFI PASTEUR 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 [...]
--- OUTSIDE RECORDS SUMMARY | 2022-06-19 00:21 | XMS_ITS | Continuity of Care Document ---
:1935 Author Organization [facility] Address [address] [place] [address]- Care Team Providers Name Role Phone Art Ortiz MD Primary Care Physician [place] [facility] [place] 08/02[place]21 - 09/01/21 [facility] [address] [place] [address]- [place] Allergies, Adverse Reactions, Alerts Substance Reaction Severity Status doxycycline Active vancomycin rash Active Avelox Active Dexilant Active Pradaxa heart burn Active Dilaudid CAUSES VOMITING Active Bactrim Active Immunizations Given and Recorded Vaccine Date Status Refusal Reason SARS-CoV-2 (COVID-19) mRNA BNT-162b2 vac 05/23/21 Recorde d SARS-CoV-2 (COVID-19) mRNA BNT-162b2 vac 11/19/20 Recorde d SARS-CoV-2 (COVID-19) mRNA BNT-162b2 vac 10/26/20 Recorde d Influenza Inactive (IM) (oldterm)1 07/20/06 Given 1Admin Note: [employer]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
--- OUTSIDE RECORDS SUMMARY | 2022-06-19 00:21 | XMS_ITS | Continuity of Care Document ---
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
--- OUTSIDE RECORDS SUMMARY | 2022-06-19 00:21 | XMS_ITS | Continuity of Care Document ---
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
--- OUTSIDE RECORDS SUMMARY | 2022-06-19 00:21 | XMS_ITS | Continuity of Care Document ---
:1935 Author Organization [facility] Address [address] [place] [address]- Care Team Providers Name Role Phone Art Ortiz MD Primary Care Physician [place] [facility] [place] Date(s): 11/16/20 - 12/16/20 [facility] [address] [place] [address] Allergies, Adverse Reactions, Alerts Substance Reaction Severity Status doxycycline Active vancomycin rash Active Dilaudid CAUSES VOMITING Active Bactrim Active Avelox Active Dexilant Active Pradaxa heart burn Active Immunizations Given and Recorded Vaccine Date Status Refusal Reason Influenza Inactive (IM) (oldterm)1 07/20/06 Given 1Admin Note: SANOFI PASTEUR VAT OVERHAULER Medications 25 5/8 needle 25 5/8 needle, [...] Maintenance, 11/08/20 10:54:00 EDT, Tablet, [facility], d/c warfarin, 168, cm, 10/07/20 [...]
--- OUTSIDE RECORDS SUMMARY | 2022-06-19 00:21 | XMS_ITS | Continuity of Care Document ---
:[address] 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
--- OUTSIDE RECORDS SUMMARY | 2022-06-19 00:22 | XMS_ITS | Continuity of Care Document ---
:1935 Author Organization [facility] Address [address] [place] [address]- Care Team Providers Name Role Phone Art Ortiz MD Primary Care Physician [facility]counter [facility] Date(s): 02/26/20 - 03/27/[address] [address]- [facility] Allergies, Adverse Reactions, Alerts Substance Reaction Severity Status doxycycline Active vancomycin rash Active Dilaudid CAUSES VOMITING Active Bactrim Active Avelox Active Dexilant Active Pradaxa heart burn Active Immunizations Given and Recorded Vaccine Date Status Refusal Reason Influenza Inactive (IM) (oldterm)1 07/20/06 Given 1Admin Note: SANOFI PASTEUR 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
--- OUTSIDE RECORDS SUMMARY | 2022-06-19 00:22 | XMS_ITS | Continuity of Care Document ---
:1935 Author Organization [facility] Address [address] [place] [address]- Care Team Providers Name Role Phone Art Ortiz MD Primary Care Physician En[facility] [place] Date(s): 10/18/20 - 11/17/20 [facility] [address] [place] [address] Allergies, Adverse Reactions, Alerts Substance Reaction Severity Status doxycycline Active vancomycin rash Active Dilaudid CAUSES VOMITING Active Bactrim Active Avelox Active Dexilant Active Pradaxa heart burn Active Immunizations Given and Recorded Vaccine Date Status Refusal Reason Influenza Inactive (IM) (oldterm)1 07/20/06 Given 1Admin Note: SANOFI PASTEUR ENGINEERING DESIGN SUPERVISOR Medications 25 5/8 needle 25 5/8 [...]
--- OUTSIDE RECORDS SUMMARY | 2022-06-19 00:22 | XMS_ITS | Continuity of Care Document ---
:1935 Author Organization [facility] Address [address] [place] [address]- Care Team Providers Name Role Phone Art Ortiz MD Primary Care Physician En[place] [facility] [place] Date(s): 05/09/22 - 06/09/[address] [address] Attending Physician: Viktoriya Cantu MD Admitting Physician: Viktoriya Cantu MD Referring Physician: Viktoriya Cantu MD Allergies, Adverse Reactions, Alerts Substance Reaction Severity Status doxycycline Active vancomycin rash Active Dilaudid CAUSES VOMITING Active Bactrim Active Avelox Active Dexilant Active Pradaxa heart burn Active Immunizations Given and Recorded Vaccine Date Status Refusal Reason SARS-CoV-2 mRNA ([id number]) vax 12/12/21 Recorde d SARS-CoV-2 (COVID-19) mRNA BNT-162b2 vac 05/23/21 Recorde d SARS-CoV-2 (COVID-19) mRNA BNT-162b2 vac 11/19/20 Recorde d SARS-CoV-2 (COVID-19) mRNA BNT-162b2 vac 10/26/20 Recorde d Influenza Inactive (IM) (oldterm)1 07/20/06 Given 1Admin 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
--- OUTSIDE RECORDS SUMMARY | 2022-06-19 00:22 | XMS_ITS | Continuity of Care Document ---
:1935 Author Organization [facility] Address [address] [address]- Care Team Providers Name Role Phone Art Ortiz MD Primary Care Physician Encounter [place] Date(s): 02/27/20 - 03/28/20 [facility] [address] [place] [address]- [facility] Allergies, Adverse Reactions, Alerts Substance Reaction Severity Status doxycycline Active vancomycin rash Active Dilaudid CAUSES VOMITING Active Bactrim Active Avelox Active Dexilant Active Pradaxa heart burn Active Immunizations Given and Recorded Vaccine Date Status Refusal Reason Influenza Inactive (IM) (oldterm)1 07/20/06 Given 1Admin Note: SANOFI PASTEUR PIPELINE GANG SUPERVISOR Medications 25 5/8 needle 25 5/8 [...] EST, Route to Pharmacy Electronically, [facility], 167.2, cm, 10/02/19 13:38:00 EST, [...]
--- OUTSIDE RECORDS SUMMARY | 2022-06-19 00:22 | XMS_ITS | Continuity of Care Document ---
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 Start Date: 05/26/22 Status: Orderedammonium lactate 12% topical cream APPLY [...] MOUTH TWICE DAILY. Start Date: 07/12/21 Status: Orderedlactulose 10 gm/15 ml oral syrup 15 mL = 10 Gm, By Mouth, Daily, # 480 mL, 0 Refills, Maintenance, 05/26/22 21:58:00 EDT, Syrup, Partial fill upon patient request if the prescription is for a schedule II opioid drug. Start Date: 05/26/22 Status: Orderedlevothyroxine 0.1 mg oral tablet 1 tablet = 100 mcg, By Mouth, Daily, # 30 tablet, 0 Refills, Maintenance, 05/26/22 21:58:00 EDT, Tablet, Partial fill upon patient request if the prescription is for a schedule II opioid drug. Start Date: 05/26/22 Status: Orderedlevothyroxine 75 mcg (0.075 mg) oral tablet 1 tablet = 75 mcg, By Mouth, Daily, # 30 tablet, 0 Refills, Maintenance, 07/12/21 21:18:00 EST, Tablet, Partial fill upon patient request if the prescription is for a schedule II opioid drug. Start Date: 07/12/21 Status: Orderedlidocaine 5% topical film 1 patch, Topically, Daily, PRN Pain , Mild, remove after 12 hours, # 13 each, 0 Refills, Maintenance, 05/26/22 21:58:00 EDT, Film, Partial fill upon patient request if the prescription is for a schedule II opioid drug. Start Date: 05/26/22 Status: Orderedmetoprolol 50 mg oral tablet, extended [...] MOUTH EVERY DAY Start Date: 07/12/21 Status: Orderedmidodrine 2.5 mg oral tablet 5 mg, 2, tablet, By Mouth, 3 times a day, # 180 tablet, Refills 0, Maintenance, 05/26/22 21:59:00 EDT, Partial fill upon patient request if the prescription is for a schedule II opioid drug. Start Date: 05/26/22 Status: Orderedmirtazapine 15 mg oral tablet 1 tablet = 15 mg, By Mouth, Daily at bedtime, # 30 tablet, 0 Refills, Maintenance, 05/26/22 21:58:00EDT, Tablet, Partial fill upon patient request if the prescription is for a schedule II opioid drug. Start Date: 05/26/22 Status: Orderedmontelukast 10 mg oral tablet TAKE ONE TABLET BY MOUTH IN THE EVENING Start Date: 07/12/21 Status: OrderedMyrbetriq 25 mg oral tablet, extended release TAKE ONE TABLET BY MOUTH EVERY DAY. SWALLOW WHOLE TABLET WITH WATER. DO NOT CRUSH, CHEW, AND/OR DIVIDE. Start Date: 07/12/21 Status: Orderedomeprazole 20 mg oral enteric coated capsule 1 capsule = 20 mg, By Mouth, Daily, # 30 capsule, 0 Refills, Maintenance, 05/26/22 21:58:00 EDT, EC Capsule, Partial fill upon patient request if the prescription is for a schedule II opioid drug. Start Date: 05/26/22 Status: OrderedoxyCODONE 5 mg oral tablet 5 mg, 1, tablet, By Mouth, Every 6 hours, PRN, Refills 0, Tot. Refills 0, Maintenance, as needed forpain, 05/26/22 21:59:00 EDT, Partial fill upon patient request if the prescription is for a scheduleII opioid drug. Start Date: 05/26/22 Status: OrderedPacerone 200 mg oral tablet 2 [...] TIMES A DAY Start Date: 07/12/21 Status: OrderedrOPINIRole 3 mg oral tablet 0.5, By Mouth, Daily at bedtime, 0 Refills, Maintenance, 05/26/22 21:58:00 EDT, Tablet, Partial fillupon patient request if the prescription is for a schedule II opioid drug. Start Date: 05/26/22 Stop Date: 06/25/22 Status: OrderedRytary 23.75 mg-95 mg oral capsule, extended release 1 capsule, By Mouth, 3 times a day, # 90 capsule, 0 Refills, Maintenance, 05/26/22 21:58:00 EDT, ER Capsule, Partial fill upon patient request if the prescription is for a schedule II opioid drug. Start Date: 05/26/22 Status: OrderedZofran 4 mg oral tablet 1 [...] Confirmed Active Restless leg syndrome Confirmed Active Underweight Confirmed Active Urinary Frequency Confirmed Active UTI [Urinary tract Confirmed Active infection] Social History Social History Type Response Smoking Status Former smoker; Tobacco user in household: No; Other: pt states she quit smoking in 1991; entered on: 01/21/18 Sex Patient Care team information PersonnelName: Diana CALIXTO, Art Bradshaw Address: Address: [address] [place] [address]
--- OUTSIDE RECORDS SUMMARY | 2022-06-19 00:22 | XMS_ITS | Continuity of Care Document ---
:1935 Author Organization [facility] Address [address] [place] [address]- Care Team Providers Name Role Phone Art Ortiz MD Primary Care Physician [facility] Date(s): 12/14/20 - 01/13/21 [facility] [address] [place] [address] Allergies, Adverse Reactions, Alerts Substance Reaction Severity Status doxycycline Active vancomycin rash Active Dilaudid CAUSES VOMITING Active Bactrim Active Avelox Active Dexilant Active Pradaxa heart burn Active Immunizations Given and Recorded Vaccine Date Status Refusal Reason Influenza Inactive (IM) (oldterm)1 07/20/06 Given 1Admin Note: SANOFI PASTEUR BEHAVIORAL THERAPY COORDINATOR Medications 25 5/8 needle 25 5/8 needle, [...] EDT, Route to Pharmacy Electronically, [facility], 168, cm, 10/07/2109:49:00 EST, Height, [...]
--- OUTSIDE RECORDS SUMMARY | 2022-06-19 00:22 | XMS_ITS | Continuity of Care Document ---
:1935 Author Organization [facility] Address [address] [place] [address]- Care Team Providers Name Role Phone Art Ortiz MD Primary Care Physician [place] [facility] [place]20 [facility] [address] [place] [id number] Allergies, Adverse Reactions, Alerts Substance Reaction Severity Status doxycycline Active vancomycin rash Active Dilaudid CAUSES VOMITING Active Bactrim Active Avelox Active Dexilant Active Pradaxa heart burn Active Immunizations Given and Recorded Vaccine Date Status Refusal Reason Influenza Inactive (IM) (oldterm)1 07/20/06 Given 1Admin Note: 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
--- OUTSIDE RECORDS SUMMARY | 2022-06-19 00:22 | XMS_ITS | Continuity of Care Document ---
:1935 Author Organization [facility] Address [address] [place] [address]- Care Team Providers Name Role Phone Art Ortiz MD Primary Care Physician [place] [facility] [place](s): 03/23/20 - 04/22/[address] [address]- [facility] Allergies, Adverse Reactions, Alerts Substance Reaction Severity Status doxycycline Active vancomycin rash Active Dilaudid CAUSES VOMITING Active Bactrim Active Avelox Active Dexilant Active Pradaxa heart burn Active Immunizations Given and Recorded Vaccine Date Status Refusal Reason Influenza Inactive (IM) (oldterm)1 07/20/06 Given 1Admin Note: SANOFI PASTEUR CONTROLLER COAL OR ORE Medications 25 5/8 needle 25 5/8 needle, [...] EST, Route to Pharmacy Electronically, [facility], 167.2, cm, 10/02/19 13:38:00 EST, [...] Maintenance, 12/31/19 11:15:00 EDT, Tablet, [facility], 167.2, cm, 12/02/19 13:40:00 EDT, [...]
--- OUTSIDE RECORDS SUMMARY | 2022-06-19 00:22 | XMS_ITS | Continuity of Care Document ---
:1935 Author Organization [facility] re Address [address] [place] [address]- Care Team Providers Name Role Phone Art Ortiz MD Primary Care Physician [place] [facility] [place](s): 08/09/21 - 09/08/21 [facility] [address] [place] [address]- Allergies, Adverse Reactions, Alerts Substance Reaction Severity Status doxycycline Active vancomycin rash Active Bactrim Active Avelox Active Pradaxa heart burn Active Dexilant Active Dilaudid CAUSES VOMITING Active Immunizations Given and Recorded Vaccine Date Status Refusal Reason SARS-CoV-2 (COVID-19) mRNA BNT-162b2 vac 05/23/21 Recorde d SARS-CoV-2 (COVID-19) mRNA BNT-162b2 vac 11/19/20 Recorde d SARS-CoV-2 (COVID-19) mRNA BNT-162b2 vac 10/26/20 Recorde d Influenza Inactive (IM) (oldterm)1 07/20/06 Given 1Admin Note: [employer]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
--- OUTSIDE RECORDS SUMMARY | 2022-06-19 00:22 | XMS_ITS | Continuity of Care Document ---
:1935 Author Organization [facility] Address [address] [place] [address]- Care Team Providers Name Role Phone Art Ortiz MD Primary Care Physician Encounter 01/31/20 - 04/30/20 [facility] [place] [facility] [address] [place] [address]- [facility] Discharge Disposition: GO[facility] Allergies, Adverse Reactions, Alerts Substance Reaction Severity Status doxycycline Active vancomycin rash Active Dilaudid CAUSES VOMITING Active Bactrim Active Avelox Active Dexilant Active Pradaxa heart burn Active Immunizations Given and Recorded Vaccine Date Status Refusal Reason Influenza Inactive (IM) (oldterm)1 07/20/06 Given 1Admin Note: SANOFI PASTEUR EXPERIENCE PLANNING 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
--- OUTSIDE RECORDS SUMMARY | 2022-06-19 00:22 | XMS_ITS | Continuity of Care Document ---
:1935 Author Organization [facility] Address [address] [place] [address]- Care Team Providers Name Role Phone Art Ortiz MD Primary Care Physician Encounter [facility] [place] Date(s): 02/03/20 - 03/04/20 [facility] [address] [place] [address]- [facility] Attending Physician: Kasia Macias Admitting Physician: Kasia Macias Referring Physician: AdmtrKasia Allergies, Adverse Reactions, Alerts Substance Reaction Severity Status doxycycline Active vancomycin rash Active Dilaudid CAUSES VOMITING Active Bactrim Active Avelox Active Dexilant Active Pradaxa heart burn Active Immunizations Given and Recorded Vaccine Date Status Refusal Reason Influenza Inactive (IM) (oldterm)1 07/20/06 Given 1Admin Note: 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
--- OUTSIDE RECORDS SUMMARY | 2022-06-19 00:22 | XMS_ITS | Continuity of Care Document ---
:1935 Author Organization [facility] Address [address] [place] [address]- Care Team Providers Name Role Phone Art Ortiz MD Primary Care Physician En[place] [facility] [place] Date(s): 06/09/19 - 08/16/[address] [address]- 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 Refills 2, Maintenance, 06/07/16 16:26:06, Instructions Replace Required Details, Route to Pharmacy Electronically, [id number] Start Date: 06/07/16 Status: OrderedAnoro Ellipta 1 puffs, Inhalation, Daily, [...] Replace Required Details, Route to Pharmacy Electronically, [id number]... Start Date: 02/13/19 Status: OrderedSingulair 10 mg [...] 13:57:16 EDT, Compound Start Date: 12/09/18 Status: OrderedWarfarin Daily, Refills 0, Maintenance, 11/10/16 13:43:14 Start Date: 11/10/16 Status: OrderedZantac 75 = 75 mg, By [...]
--- OUTSIDE RECORDS SUMMARY | 2022-06-19 00:22 | XMS_ITS | Continuity of Care Document ---
:1935 Author Organization [facility] Address [address] [place] [address]- Care Team Providers Name Role Phone rAt Ortiz MD Primary Care Physician Encounter [facility] Date(s): 05/18/21 - 06/17/21 [facility] [address] [place] [address]- [place] Allergies, Adverse Reactions, Alerts Substance Reaction Severity Status doxycycline Active vancomycin rash Active Dilaudid CAUSES VOMITING Active Bactrim Active Avelox Active Dexilant Active Pradaxa heart burn Active Immunizations Given and Recorded Vaccine Date Status Refusal Reason Influenza Inactive (IM) (oldterm)1 07/20/06 Given 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 Albuterol (Eqv-ProAir HFA) 90 mcg/inh inhalation aerosol 2 puffs, Inhalation, Every 4 hours, to 6 hours, 0 Refills, Maintenance, 05/14/20 12:09:00 EDT Start Date: 05/14/20 Status: Orderedalendronate 70 mg oral tablet 1 tablet = 70 mg, By Mouth, Every week, # 4 tablet, 13 Refills, Maintenance, 11/02/20 7:52:00 EDT, Tablet, [facility], 168, cm, 10/07/20 10:49:00 EST, Height, 62.8, kg, 09/30/20 23:50:00 EST, Dry Weight Start Date: 11/02/20 Status: OrderedAnoro Ellipta 62.5 mcg-25 mcg/inh inhalation [...] 02/16/11 12:51:11 EDT Start Date: 02/16/11 Status: OrderedRetacrit 40,000 units/mL preservative-free injectable solution [...] 13:57:16 EDT, Compound Start Date: 12/09/18 Status: Ordered Problem List Condition Effective Dates [...]
--- OUTSIDE RECORDS SUMMARY | 2022-06-19 00:22 | XMS_ITS | Continuity of Care Document ---
:1935 Author Organization [facility] Address [address] [place] [address], [address] [place] [address]- Care Team Providers Name Role Phone Art Ortiz MD Primary Care Physician En[facility] [place] Date(s): 03/05/20 - [facility] [address], [address] [place] [address]- [facility] Allergies, Adverse Reactions, Alerts Substance Reaction Severity Status doxycycline Active vancomycin rash Active Dilaudid CAUSES VOMITING Active Bactrim Active Avelox Active Dexilant Active Pradaxa heart burn Active Immunizations Given and Recorded Vaccine Date Status Refusal Reason Influenza Inactive (IM) (oldterm)1 07/20/06 Given 1Admin Note: 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
--- OUTSIDE RECORDS SUMMARY | 2022-06-19 00:22 | XMS_ITS | Continuity of Care Document ---
:1935 Author Organization [facility] Address [address] [facility], 3rd Floor, [address] [place] [address]- Care Team Providers Name Role Phone Art Ortiz MD Primary Care Physician [facility] [facility] [place] [id number] Date(s): 04/16/20 - 05/16/20 [facility] [address], [address], [address] [place] [address]- [facility] Attending Physician: Admtr, Ar8 Admitting Physician: Admtr, Ar8 Referring Physician: Admtr, Ar8 Allergies, Adverse Reactions, Alerts Substance Reaction Severity Status doxycycline Active vancomycin rash Active Dilaudid CAUSES VOMITING Active Bactrim Active Avelox Active Dexilant Active Pradaxa heart burn Active Immunizations Given and Recorded Vaccine Date Status Refusal Reason Influenza Inactive (IM) (oldterm)1 07/20/06 Given 1Admin Note: SANOFI PASTEUR EXTERMINATION SUPERVISOR Medications 25 5/8 needle 25 5/8 [...] EST, Height, 68.1, kg, 07/01/19 14:22:00 EST, DrTaj.. Start Date: 10/02/19 Stop Date: 09/26/20 Status: [...] EDT, Route to Pharmacy Electronically, [facility], 167.2, cm, 11/04/19 13:42:00 EDT, Height, [...] Maintenance, 02/27/20 13:37:00 EDT, Tablet, [facility], 167.2, cm, 01/06/20 13:31:00 EDT, [...]
--- OUTSIDE RECORDS SUMMARY | 2022-06-19 00:22 | XMS_ITS | Continuity of Care Document ---
:1935 Author Organization [facility] Address [address] [address]- Care Team Providers Name Role Phone Art Ortiz MD Primary Care Physician Encounter [facility] [place] [place] Date(s): 03/22/20 - 04/21/20 [facility] [address] [address]- [facility] Allergies, Adverse Reactions, Alerts Substance Reaction Severity Status doxycycline Active vancomycin rash Active Dilaudid CAUSES VOMITING Active Bactrim Active Avelox Active Dexilant Active Pradaxa heart burn Active Immunizations Given and Recorded Vaccine Date Status Refusal Reason Influenza Inactive (IM) (oldterm)1 07/20/06 Given 1Admin Note: SANOFI PASTEUR AUDIO VISUAL MANAGER Medications 25 5/8 needle 25 5/8 [...]
--- OUTSIDE RECORDS SUMMARY | 2022-06-19 00:22 | XMS_ITS | Continuity of Care Document ---
:1935 Author Organization [facility] Address [address] [place] [address]- Care Team Providers Name Role Phone Art Ortiz MD Primary Care Physician Encounter [facility] [place] Date(s): 01/30/20 - 02/29/[address] [address]- [facility] Attending Physician: Not on Staff, Attending MD Admitting Physician: Not on Staff, Admitting MD Referring Physician: Not on Staff, Referring MD Allergies, Adverse Reactions, Alerts Substance Reaction Severity Status doxycycline Active vancomycin rash Active Dilaudid CAUSES VOMITING Active Bactrim Active Avelox Active Dexilant Active Pradaxa heart burn Active Immunizations Given and Recorded Vaccine Date Status Refusal Reason Influenza Inactive (IM) (oldterm)1 07/20/06 Given 1Admin Note: SANOFI PASTEUR NUTRITION THERAPIST Medications 25 5/8 needle 25 5/8 needle, [...]
--- OUTSIDE RECORDS SUMMARY | 2022-06-19 00:22 | XMS_ITS | Continuity of Care Document ---
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 Take 2 tablets twice daily until day of cardioversion (approxinmately 2 weeks). After cardioversion start maintenace dose of 400mg daily, # 84 tablet, 0 Refills, Maintenance, 07/20/21 11:42:00... Start Date: 07/20/21 Stop Date: 08/10/21 Status: Orderedprimidone 50 mg oral tablet TAKE [...]
--- OUTSIDE RECORDS SUMMARY | 2022-06-19 00:22 | XMS_ITS | Continuity of Care Document ---
:1935 Author Organization [facility] Address [address] [place] [address]- Care Team Providers Name Role Phone Art Ortiz MD Primary Care Physician Encounter 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
--- OUTSIDE RECORDS SUMMARY | 2022-06-19 00:22 | XMS_ITS | Continuity of Care Document ---
:1935 Author Organization [facility] Address [address] [place] [address]- Care Team Providers Name Role Phone Art Ortiz MD Primary Care Physician Encounter [facility] [place] Date(s): 07/25/21 - 08/24/21 [facility] [address] [place] [address]- [place] Allergies, Adverse Reactions, Alerts Substance Reaction Severity Status doxycycline Active vancomycin rash Active Dilaudid CAUSES VOMITING Active Avelox Active Pradaxa heart burn Active Dexilant Active Bactrim Active Immunizations Given and Recorded Vaccine Date Status Refusal Reason SARS-CoV-2 (COVID-19) mRNA BNT-162b2 vac 05/23/21 Recorde d SARS-CoV-2 (COVID-19) mRNA BNT-162b2 vac 11/19/20 Recorde d SARS-CoV-2 (COVID-19) mRNA BNT-162b2 vac 10/26/20 Recorde d Influenza Inactive (IM) (oldterm)1 07/20/06 Given 1Admin Note: [employer] Liars Poker AssociationOFI [employer] 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
--- OUTSIDE RECORDS SUMMARY | 2022-06-19 00:22 | XMS_ITS | Continuity of Care Document ---
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 [...]
--- OUTSIDE RECORDS SUMMARY | 2022-06-19 00:23 | XMS_ITS | Encounter Summary ---
:1935 Author Care Team Providers Name Role Phone Art Ortiz Primary Care Provider [phone] [facility] Derrek - [address] Floor OTHER [phone] Reason for Visit Acute Rounding Visit Assessment and Plan 1. 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 Continue to monitor weight, intake To see dentist tomorrow to refit denture s Can consider megestrol acetate if increa se of Remeron not effective 2. Myelodysplastic syndrome (clinical) Followed closely by Heme/Onc. Transfuse prn, monitor labs weekly and p rn Continue with routine injections/tx. Hgb 7.6 today - will forward to Heme/O nc 3. Hypothyroidism TSH just back - 25. 08 Currently on levothyroxine 75 mcg daily - increase to 100 mcg daily Repeat TSH in 8 wks. will monitor Discussion Note: None recorded.Patient educational handouts: No information available. Plan of Care Reminders Provider Appointments None recorded. ? ? Lab None recorded. ? ? Referral None recorded. ? ? Procedures None recorded. ? ? Surgeries None recorded. ? ? Imaging None recorded. ? ? Medications No Medications Reported Notes: med list reviewed, see MAR for complete list Medications Administered None recorded. Vitals Height Blood Pressure 5 ft 6 in 107/72 mm[Hg] Results Lab Results None recorded. Allergies Code Code System Name Reaction Severity Onset 703897 RxNorm Bactrim ? ? ? 9288965 RxNorm Dabigatran Etexilate ? ? ? 362799 RxNorm Dexlansoprazole ? ? ? 691690 RxNorm Dilaudid ? ? ? 3640 RxNorm Doxycycline ? ? ? 6211 RxNorm Lactose ? ? ? 543618 RxNorm Moxifloxacin ? ? ? 28691 RxNorm Vancomycin ? ? ? Notes: egg Problems Name Status Onset Date Source ? Hypothyroidism Active 11/12/2020 ? Atrial Fibrillation Active 11/12/2020 ? Chronic Obstructive Lung Disease Active 11/12/2020 ? Gastroesophageal Reflux Disease without Esophagitis Active 11/12/2020 ? Chronic Urinary Tract Infection Active 11/12/2020 ? Osteoporosis Active 11/12/2020 ? Chronic Tremor Active 11/12/2020 ? Fall Active 11/12/2020 ? Anemia Active 11/26/2020 ? Myelodysplastic Syndrome (Clinical) Active 03/02/2022 ? Chronic Hyponatremia Active 03/02/2022 ? Parkinson's Disease Active 03/02/2022 ? Restless Legs Active 03/02/2022 ? Orthostatic Hypotension Active 03/02/2022 ? Fracture of Single Pubic Ramus Active 03/02/2022 ? Subdural Hematoma Active 03/02/2022 ? Fracture of Superior Pubic Ramus Active 03/12/2022 ? Fracture of Inferior Pubic Ramus Active 03/12/2022 ? Acute Constipation Active 03/31/2022 ? Chronic Constipation Active 04/10/2022 ? Nausea Active 04/18/2022 ? Weight Loss Active 05/01/2022 ? Hyperkalemia Active 06/08/2022 ? Eruption Active 06/12/2022 ? Procedures None recorded. Vaccine List Vaccine Type influenza, injectable, quadrivalent 05/27/2018 04/18/2019 pneumococcal conjugate PCV 13 12/22/2016 pneumococcal polysaccharide PPV23 07/03/2003 Td (adult) 03/02/2008 zoster live 11/02/2010 Notes: rec'd from PCP 11/16, flu vax re fused per [facility] Social History Tobacco Smoking Status Former Smoker Notes: quit 20 yrs ago What is your level of alcohol None consumption? Has tobacco cessation counseling N Notes: n/a as pt no longer been provided? smokes What is your code status? DNI Do you have a medical power of Y medical social worker? What was the date of your most 03/03/2022 recent tobacco screening? Do you have an advanced directive? Y Note s: CPR ok, DNI ok hospital Legal Guardian? N Do you have an out of hospital DNR? N Do you or have you ever used any N other forms of tobacco or nicotine? Do you use any illicit or N recreational drugs? Where do you live? Apartment Notes: ILF at [facility] What is your relationship status? Functional Status Unknown. Past Encounters 05/23/2022 Weight Loss; Myelodysplastic Syndrome (C linical); Hypothyroidism Lucila Engle REFUGE WORKER: [address] [place] [address], Ph. 05/22/2022 Dry Eyes GUILLERMO Chiu: [address], [place], [place] [address], Ph. 05/19/2022 Weight Loss; Atrial Fibrillation; Chroni c Hyponatremia; Chronic Obstructive Lung Disease; Chronic Tremor; Hypothyroidism; Myelodysplastic Syndrome (Clinical); Anemia; Gastroesophageal Reflux Disease wit hout Esophagitis; Orthostatic Hypotensio n; Parkinson's Disease; Restless Legs GUILLERMO Chiu: [address], [place], [place] [address], Ph. 05/15/2022 Chronic Hyponatremia; Anemia; Acute Cons tipation; Orthostatic Hypotension; Pain of Right Shoulder Joint GUILLERMO Chiu: [address], [place], [place] [address], Ph. 05/08/2022 Anemia GUILLERMO Chiu: [address], [place], [place] [address], Ph. 05/04/2022 Sore Throat Symptom; Weight Loss; Chroni c Hyponatremia; Anemia; Atrial Fibrillation; Chronic Obstructive Lung Disease; Gastroesophageal Reflux Disease without Esophagitis; Myelodysplastic Syndrome (Clin ical); Hypothyroidism; Parkinson's Disea se; Restless Legs; Orthostatic Hypotension; Chronic Pain; Nausea; Chronic Constipation; Subdural Hematoma; Fracture of Superior Pubic Ramus; Fracture of Inferior Pubic Ramus; Chronic Tremor Lucila Engle REFUGE WORKER: [address] [place] [address], Ph. 05/01/2022 Weight Loss; Chronic Hyponatremia; Anemi a GUILLERMO Chiu: [address], [place], [place] [address], Ph. 04/28/2022 Atrial Fibrillation; Chronic Obstructive Lung Disease; Gastroesophageal Reflux Disease without Esophagitis; Myelodysplastic Syndrome (Clinical); Hypothyroidism; Parkinson's Disease; Restless Legs; Orthostatic Hypotension; Chronic Pain Maddy Smith MD: [address] [place] [address], Ph. 04/25/2022 Myelodysplastic Syndrome (Clinical); Par kinson's Disease; Chronic Obstructive Lung Disease; Acute Low Back Pain; Orthostatic Hypotension; Nausea; Anemia; Chronic Hyponatremia; Atrial Fibrillation; Chron ic Constipation; Subdural Hematoma; Frac ture of Superior Pubic Ramus; Fracture of Inferior Pubic Ramus; Hypothyroidism; Chronic Tremor Lucila Engle REFUGE WORKER: [address] [place] [address], Ph. History of Present Illness Note: <div>Ximena is seen today for an acute visit. </div><div>
</div>&l t;div>Due to weight loss, remeron was started, and dose recently increased to 15 mg due to continued issues with poor intake and further weight loss. </div><div>Daughter Angie called today, asking about hospice as Mom had mentioned this to her but didn't understand what is was about. </div><div>Prior notes reviewed, and appears it was mentioned as an option of care in light of weight loss and multiple medical issues not expected to improve. MOLST does indicate no artificial nutrition.</div><div>Explained above to gopal Adams, and she understands nowwhy hospice was mentioned. She understands a g tube would not add to the quality of her life at thisstage, but would keep her alive so she would continue to live with her other medical conditions and would continue to decline especially in light of advanced age as well. </div><div><br&g t;</div><div>Above was also reviewed with Ximena, and she says she is trying to eat better. Boost Breeze on bedside table, container empty. Said she had a ham and pickle sandwich for lunchthat was good. She will be seeing the dentist tomorrow to have her dentures looked at again as the lowers are not fitting well and are causing pain. Otherwise, no complaints, labs and VS stable. </di v><div>
</div><div>
</div><div>Addendum - labs done today - wbc 7.6 - will forward to Heme/Onc. TSH 25.08 - curently on 75 mcg daily</div> Review of Systems ? Notes: <div>All others reviewed and negative unless otherwise stated in the HPI.</div> Physical Exam ? General Adult Exam Reported By: Patient Constitutional: General Appearance: too thin . Level of Distress: NAD. Ambulation: ; laying in bed Psychiatric: Insight: good judgement. Men david Status: active and alert, normal mood, normal affect. Orienta tion: to time, to place, to person. Memory: recent memory normal Head: Head: normocephalic, atrauma tic Eyes: Lids and Conjunctivae: non-i njected. Sclerae: non-icteric ENMT: Hearing: hearing decreased. Oropharynx: moist mucous membranes Neck: Neck: FROM Cardiovascular: Heart Auscultation: irregula rly irregular Abdomen: Bowel Sounds: soft, non-dist ended, no tenderness Musculoskeletal:: Extremities: no cyanosis, no edema. Joints, Bones, and Muscles normal movement of all extre mities Neurologic: Cranial Nerves: grossly inta ct Skin: Inspection and palpation: no rash, no ulcer Notes: <div>Labs </div><div>03/02-WB C-2.4, H/H-8.3/24.5, plts-123, BUN/Cr-22/0.84, GFR>60, N a+132, K+4.8, glu-73</div><div>03/09/22 wbc 3, hgb 7.5, hct 23.7, pl t 141, na 139, k 4.2, bun 24, slate splitter 0.95, sabi 7.4</div><div>03/20/22 na 139, k 3.5, bun 28, slate splitter 0.88, sabi 7.5</div><div>03/27/22 wbc 3.3 , hgb 7.1, hct 21.9, plt 149, na 134, k 4, bun 13, slate splitter 0.78, sabi 8</ div><div>04/03/22 wbc 4, hgb 7.3, hct 22.3, plt 207, na 132, k 4.5 , bun 17, slate splitter 0.82, sabi 8</div><div>04/10/22-WBC-3.4, H/H-6.6/20.9, plts-177, BUN/Cr-16/0.97, GFR-55, Na+1 31, K+4.5, glu-61</div><div>04/17: wbc 3.1, hgb 7.3, plt 152. Na 13 0, K 3.8, Bun13, Cr. 0.74, glu 65. </div><div>04/25: wbc 2.7, hgb 6.5, plt 141. </div><div>05/01/22 wbc 3.8, hgb 7.4, hct 22.9, plt 168, na 132, k 4.4, bun 17, slate splitter 0.69, sabi 7.7</div><div>05/08/22 wb c 4.1, hgb 6.8, hct 21.4, plt 149, na 133, k 4.3, bun 20, slate splitter 0.91 , sabi 7.7</div><div>05/15/22: wbc 4.5, h&h 9.3/29.4, mchc 31.6 , rdw 21.4, plt 195, gluc 65, sodium 134, k+ 4.3, chloride 103, c o2 25, gap 6, bun 18, creat 0.88, eGFR >60, calcium 8.3</div>
--- OUTSIDE RECORDS SUMMARY | 2022-06-19 00:23 | XMS_ITS | Encounter Summary ---
:1935 Author Care Team Providers Name Role Phone Art Ortiz Primary Care Provider [phone] [place] - [address]th Floor OTHER [phone] Reason for Visit Routine Rounding routine rounding visit Assessment and Plan 1. Atrial fibrillation amiodarone 200 mg daily AC held at this time will monitor 2. Chronic obstructive lung disease Anoro Ellipta 62.5-25 mcg/INH: one inha lation daily montelukast 10 mg daily will monitor 3. Gastroesophageal reflux disease with out esophagitis omeprazole 20 mg daily will monitor 4. Myelodysplastic syndrome (clinical) fu hem/onc regular labs will monitor 5. Hypothyroidism levothyroxine 75 mcg daily will monitor 6. Parkinson's disease primidone 100 mg at hs ropinirole 1.5 mg tid Rytary ER 23.75-95: 2 capsules tid will monitor neurology fu prn 7. Restless legs primidone 100 mg at hs gabapentin 200 mg at hs ropinirole 1.5 mg tid will monitor 8. Orthostatic hypotension midodrine 2.5 mg bid will monitor 9. Chronic pain APAP 975 mg q8h oxycodone 2.5 mg q12h prn Lidocaine patch daily to right hip and l ower back gabapentin 200 mg at hs will monitor Discussion Note: None recorded.Patient educational [...] Height Blood Pressure 5 ft 6 in 93/63 mm[Hg] Results Lab Results None recorded. Allergies Code Code System Name Reaction Severity Onset 660950 RxNorm Bactrim ? ? ? 4289719 RxNorm Dabigatran Etexilate ? ? ? 647253 RxNorm Dexlansoprazole ? ? ? 583600 RxNorm Dilaudid ? ? ? 3640 RxNorm Doxycycline ? ? ? 6211 RxNorm Lactose ? ? ? 668358 RxNorm Moxifloxacin ? ? ? 33744 RxNorm Vancomycin ? ? ? Notes: egg [...] you have a medical power of Y immigration attorney? What was the date of your most [...] do you live? Apartment Notes: ILF at [facility] What is your relationship status? Functional Status Unknown. Past Encounters 04/28/2022 Atrial Fibrillation; Chronic Obstructive Lung Disease; Gastroesophageal Reflux Disease without Esophagitis; Myelodysplastic Syndrome (Clinical); Hypothyroidism; Parkinson's Disease; Restless Legs; Orthostatic Hypotension; Chronic Pain Maddy Smith MD: [address] [place] [phone], Ph. 04/25/2022 Myelodysplastic Syndrome (Clinical); Par kinson's Disease; Chronic Obstructive Lung Disease; Acute Low Back Pain; Orthostatic Hypotension; Nausea; Anemia; Chronic Hyponatremia; Atrial Fibrillation; Chron ic Constipation; Subdural Hematoma; Frac ture of Superior Pubic Ramus; Fracture of Inferior Pubic Ramus; Hypothyroidism; Chronic Tremor Lucila Engle B2B ACCOUNT EXECUTIVE: [address] [place] [phone], Ph. 04/20/2022 Myelodysplastic Syndrome (Clinical); Par kinson's Disease; Acute Low Back Pain; Nausea; Anemia; Chronic Constipation; Subdural Hematoma; Fracture of Superior Pubic Ramus; Fracture of Inferior Pubic Ramus ; Atrial Fibrillation; Hypothyroidism; O rthostatic Hypotension; Chronic Hyponatremia; Chronic Tremor Lucila Engle NP: [address] [place] [phone], Ph. 04/18/2022 Myelodysplastic Syndrome (Clinical); [place]; Anemia; Chronic Constipation; Parkinson's Disease; Subdural Hematoma; Fracture of Superior Pubic Ramus; Fracture of Inferior Pubic Ramus; Atrial Fibrillation ; Hypothyroidism; Orthostatic Hypotensio n; Chronic Hyponatremia Lucila Engle NP: [address] [place] [phone], Ph. 04/10/2022 Myelodysplastic Syndrome (Clinical); [place]; Chronic Constipation; Parkinson's Disease; Subdural Hematoma; Fracture of Superior Pubic Ramus; Fracture of Inferior Pubic Ramus; Atrial Fibrillation; Hypoth yroidism; Orthostatic Hypotension; Chron ic Hyponatremia Marija Morrow MD: [address], [place] [address], Ph. 04/07/2022 Anemia; Parkinson's Disease LEEANN ChiuP: [address], [place] [address], Ph. 04/06/2022 Anemia; Acute Constipation; Fracture of Superior Pubic Ramus; Atrial Fibrillation; Hypothyroidism; Orthostatic Hypotension; Myelodysplastic Syndrome (Clinical); Chronic Hyponatremia Lucila Engle B2B ACCOUNT EXECUTIVE: [address], [place] [address], Ph. 04/03/2022 Anemia; Acute Constipation LEEANN ChiuP: [address], [place] [address], Ph. 03/31/2022 Acute Constipation LEEANN ChiuP: [address], [place] [address], Ph. 03/30/2022 Fracture of Superior Pubic Ramus Lucila Engle B2B ACCOUNT EXECUTIVE: [address], [place] [address], Ph. History of Present Illness Note: <div>This 87 year old female halfway care resident is seen today for routine rounding visit.</div><div>
</div><div>Medical history is remarkable for Parkinson's disease, myelodysplastic syndrome, GERD, hypothyroidism, COPD, afib</div><div>
</div><div>Patient was admitted to [facility] in February [address] [facility] hospitalization for SDH and pelvic fractures. She has been participating in rehab services at [facility]. Patient is seen regularly by hematology/oncology. Most recent visit was 04/17/22 at which timeit was felt that she was responding to luspartercept. Transfusion was most recently given on 04/27/22with goal for hemoglobin >7.</div><div>
</div><div>Nursing reports that patient had a sore throat this morning that is feeling better. Patient tells me that she no longer has a sore throat. She was up all night last night upset about [place] dying. She is watching a mass for the perez on her television during our visit.</div><div>
</div><div>Advanced directives: no MOLST scanned into new [facility] record</div>Review of Systems: ROS as noted in the HPI Review of Systems ? Notes: <div>All others reviewed and negative unless otherwise stated in the HPI.</div> Physical Exam ? General Adult Exam Reported By: Patient Constitutional: General Appearance: well-nou rished, well-developed; thin. Level of Distress: NAD. Ambulation: l imited ambulation, ambulation with walker, in wheelchair; Curre ntly in bed Psychiatric: Insight: good judgement. Men david Status: active and alert, normal mood, normal affect. Orienta tion: to time, to place, to person. Memory: recent memory normal Head: Head: normocephalic, atrauma tic Eyes: Lids and Conjunctivae: non-i njected. Sclerae: non-icteric ENMT: Hearing: hearing decreased. Oropharynx: moist mucous membranes Neck: Neck: supple Lungs: Auscultation: breath sounds normal, no wheezing, no rales/crackles, no rhonchi Cardiovascular: Heart Auscultation: irregula rly irregular Abdomen: Bowel Sounds: soft, non-dist ended, no masses, no tenderness; mild generalized tenderness of ab domen Musculoskeletal:: Extremities: no cyanosis, no edema. Joints, Bones, and Muscles normal movement of all extre mities Neurologic: Cranial Nerves: grossly inta ct Skin: Inspection and palpation: no rash, no ulcer Notes: <div>Labs </div><div>03/02-WB C-2.4, H/H-8.3/24.5, plts-123, BUN/Cr-22/0.84, GFR>60, N a+132, K+4.8, glu-73</div><div>03/09/22 wbc 3, hgb 7.5, hct 23.7, pl t 141, na 139, k 4.2, bun 24, word processing operator 0.95, sabi 7.4</div><div>03/20/22 na 139, k 3.5, bun 28, word processing operator 0.88, sabi 7.5</div><div>03/27/22 wbc 3.3 , hgb 7.1, hct 21.9, plt 149, na 134, k 4, bun 13, word processing operator 0.78, sabi 8</ div><div>04/03/22 wbc 4, hgb 7.3, hct 22.3, plt 207, na 132, k 4.5 , bun 17, word processing operator 0.82, sabi 8</div><div>04/10/22-WBC-3.4, H/H-6.6/20.9, plts-177, BUN/Cr-16/0.97, GFR-55, Na+1 31, K+4.5, glu-61</div><div>04/17: wbc 3.1, hgb 7.3, plt 152. Na 13 0, K 3.8, Bun13, Cr. 0.74, glu 65. </div><div>04/25: wbc 2.7, hgb 6.5, plt 141. </div>
--- OUTSIDE RECORDS SUMMARY | 2022-06-19 00:23 | XMS_ITS | Encounter Summary ---
:1935 Author Care Team Providers Name Role Phone Art Ortiz Primary Care Provider [phone] [place] - 4th Floor OTHER [phone] Reason for Visit Acute Rounding Visit Assessment and Plan 1. Chronic hyponatremia Current Na level 138Felt likely combo o f decreased solute intake and SIADH. Responded well to fluid restriction and Urea. Continue 1500 cc fluid restriction BMP q sunday to trend 2. Hyperkalemia Responded well to lokelma K now 4.3. BMP q sunday to trend 3. Anemia Related to MDS follows with Dr Cantu onco through [facility] luspatercept treatments to continue as p er Hematology as well as prn transfusions. Hgb 7.8 yesterday, repeat CBC q sunday. Forward results to Dr. Cantu monitor labs and fax to oncology weekly 4. Hypothyroidism Recent TSH 25. 08 - levothyroxine dose increased to 100 mcg TSH in hosp 17.20 Monitor Repeat TSH in 6-8 wks. 5. Parkinson's disease Continue: primidone 100 mg at hs ropinirole 1.5 mg tid Rytary ER 23.75-95: 2 monitor for effect neurology fu prn 6. 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 Diet downgraded to puree in hosp. Continue to monitor weight, intake Seen by the dentist - refit dentures Monitor. Hospice met with family for informationa l visit - considering conservative end of life care. 7. Orthostatic hypotension midodrine increased to 5 mg tid in the hospital monitor VS. Off metoprolol at this time. No sx. 8. Atrial fibrillation continue amiodarone - dose increased to 400 mg dailymetoprolol stopped consider restarting AC - currently on ho ld due to SDH. Pt. unsure if she wants to restart. Monitor VS, CP status for change 9. Chronic constipation continue multiple laxatives - colace 10 0 mg bid, restart senna 2 tabs po q HS. Monitor bowels and adjust meds prn. 10. Chronic obstructive lung disease Continue: Anoro Ellipta 62.5-25 mcg/INH: one inhal ation daily - c/o sore throat - enc. to rinse mouth after use. montelukast 10 mg daily continue to monitor 11. Gastroesophageal reflux disease wit hout esophagitis continue omeprazole 20 mg daily will monitor 12. Electrolyte imbalance continue zinc x 7 days Continue Vit C 500 mg daily. Monitor labs. 13. Acute dermatitis moisturize skin at least daily - reques yobani again added hydrocortisone 1% cream bid prn - will request bid use x 7 days Monitor Calamine lotion also ordered tid Discussion Note: None recorded.Patient educational handouts: No [...] Height Blood Pressure 5 ft 6 in 112/80 mm[Hg] Results Lab Results None recorded. Allergies Code Code System Name Reaction Severity Onset 331451 RxNorm Bactrim ? ? ? 0083598 RxNorm Dabigatran Etexilate ? ? ? 786444 RxNorm Dexlansoprazole ? ? ? 430339 RxNorm Dilaudid ? ? ? 3640 RxNorm Doxycycline ? ? ? 6230 RxNorm Lactose ? ? ? 196712 RxNorm Moxifloxacin ? ? ? 13660 RxNorm Vancomycin ? ? ? 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 What was the date of your most [...] do you live? Apartment Notes: ILF at [facility] What is your relationship status? Functional Status Unknown. Past Encounters 06/13/2022 Chronic Hyponatremia; Hyperkalemia; Anem ia; Hypothyroidism; Parkinson's Disease; Weight Loss; Orthostatic Hypotension; Atrial Fibrillation; Chronic Constipation; Chronic Obstructive Lung Disease; Gastro esophageal Reflux Disease without Esopha gitis; Electrolyte Imbalance; Acute Dermatitis Lucila Engle HERB DOCTOR: [address] [place] [address], Ph. 06/12/2022 Atrial Fibrillation; Chronic Obstructive Lung Disease; Eruption; Myelodysplastic Syndrome (Clinical); Weight Loss; Hypocalcemia GUILLERMO Chiu: [address] [place] [address], Ph. 06/08/2022 Chronic Hyponatremia; Hyperkalemia; Anem ia; Hypothyroidism; Parkinson's Disease; Weight Loss; Orthostatic Hypotension; Atrial Fibrillation; Chronic Constipation; Chronic Obstructive Lung Disease; Gastro esophageal Reflux Disease without Esopha gitis; Electrolyte Imbalance Lucila Engle HERB DOCTOR: [address] [place] [address], Ph. 05/25/2022 Acute Dermatitis; Chronic Insomnia; Dry Eyes; Fracture of Superior Pubic Ramus; Myelodysplastic Syndrome (Clinical); Weight Loss; Hypothyroidism Lucila Engle HERB DOCTOR: [address] [place] [address], Ph. 05/23/2022 Weight Loss; Myelodysplastic Syndrome (C linical); Hypothyroidism Lucila Engle [facility]B DOCTOR[facility] [address] [facility] [address], Ph. 05/22/2022 Dry Eyes GUILLERMO Chiu: [address] [place] [address], Ph. 05/19/2022 Weight Loss; Atrial Fibrillation; Chroni c Hyponatremia; Chronic Obstructive Lung Disease; Chronic Tremor; Hypothyroidism; Myelodysplastic Syndrome (Clinical); Anemia; Gastroesophageal Reflux Disease wit hout Esophagitis; Orthostatic Hypotensio n; Parkinson's Disease; Restless Legs GUILLERMO Chiu: [address] [place] [address], Ph. 05/15/2022 Chronic Hyponatremia; Anemia; Acute Cons tipation; Orthostatic Hypotension; Pain of Right Shoulder Joint GUILLERMO Chiu: [address], [place] [address], Ph. History of Present Illness Note: <div>Ximena is seen today for an acute visit. </div><div>
</div>&l t;div>She returned from [facility] on 06/06 for continued care and rehab after a brief hosp. due to low BP, anemia, electrolyte imbalance. </div><div>She was sent to [facility] on 05/26 from her Oncologist's Office due to low BP.</div><div>Her stay was complicated by hyponatremia related to SIADH and hyperkalemia now improved. </div><div>Hyponatremia - felt likely a combination of decreased solute intake and SIADH - ? due to primidone and remeron. Remeron stopped. Seen by renal, given IVF and placed on fluid restriction. Given Urea powder 06/01-06/06. Na upon d/c 134. </div><div>Hyperkalemia - felt due to reduced distal tubular K excretion. Treated with Lokelma, K 4.6. </div><div>Anemia - due to MDS. Transfused twice while inpt., plan is to continue to trend labs and administer Luspatercept as per Hematology. </div><div>Asthenia/malnutrition/weight loss/Vit C and Zinc deficiency - Seen by nutrition - supplements recommended. Zinc and C levels low, started po supplements to replace. Sore gum evaluated, seen by ST, now on pureeddiet and prn oral gel. </div><div>PD - sinemet, primidone, requip continued. </div><div>Hypotension - stable improved after IVF and midodrine continued tid. PO intake encouraged. </div><div>AF - maintained on amiodarone, dose increased, metoprolol stopped. No on AC due to recent SDH. </div><div>Goals of care discussed which included end of life care. &lt ;/div><div>
</div><div>Meds stopped - metoprolol, remeron</div><div>Meds changed - amiodarone 400 mg daily, gabapentin 200 mg q HS, primidone 100 mg q HS, midodrine 5 mg tid</div><div>
</div><div>
</div><div>Upon exam, Ximena is dressed, up in her chair, looks much better than before. She says she is feeling well; only complaint is itchy skin - back, arms, legs, armpits. Calamine lotion ordered yesterday, does not appear she has used it yet. She thinks her appetite has been good lately, recently had herdentures adjusted. Working with ST. No further weight loss recently. </div><div><br&gt ;</div><div>
</div><div>
</div><div>PMH: Afib,COPD, myelodysplastic syndrom with pancytopenia, GERD, hypothyroidism, Parkinson's, RLS, s/pbilateral TKR, s/p SDH in 01/2022 and 2019, and s/p right superior and inferior pubic ramus fxs.</div> Review of Systems ? Notes: <div>All others reviewed and negative unless otherwise stated in the HPI.</div> Physical Exam ? General Adult Exam Reported By: Patient Constitutional: General Appearance: well-dev eloped. Level of Distress: NAD. Ambulation: limited ambulati on, ambulation with walker; in chair Psychiatric: Insight: good judgement. Men david Status: active and alert, normal mood, normal affect. Orienta tion: to time, to place, to person. Memory: recent memory normal Head: Head: normocephalic, atrauma tic Eyes: Lids and Conjunctivae: non-i njected. EOM: EOMI. Sclerae: non-icteric ENMT: Hearing: hearing decreased. Oropharynx: moist mucous membranes Neck: Neck: FROM Lungs: Auscultation: good air movem ent, no wheezing, no rhonchi; few left base crackles Cardiovascular: Heart Auscultation: irregula rly irregular Abdomen: Bowel Sounds: soft, non-dist ended, no tenderness Musculoskeletal:: Extremities: no cyanosis, no edema. Joints, Bones, and Muscles normal movement of all extre mities Neurologic: Cranial Nerves: grossly inta ct Skin: Inspection and palpation: no ulcer, rash Notes: <div> 05/01/22 wbc 3.8, hgb 7 .4, hct 22.9, plt 168, na 132, k 4.4, bun 17, hematology nurse 0.69, sabi 7.7</d iv><div>05/08/22 wbc 4.1, hgb 6.8, hct 21.4, plt 149, na 133, k 4.3 , bun 20, hematology nurse 0.91, sabi 7.7</div><div>05/15/22: wbc 4 .5, h&h 9.3/29.4, mchc 31.6, rdw 21.4, plt 195, gluc 65, sodium 134 , k+ 4.3, chloride 103, co2 25, gap 6, bun 18, creat 0.88, eGFR >60 , calcium 8.3</div><div>05/23: hgb 7.6, TSH 25.08</div><div>06/05 (h osp): wbc 6, hgb 8.9, plt 185. Na 134, K 4.6, Bun 111, Cr. 1.1, glu 99. TSH 17.20, FT4 1.55</div><div>06/07/22: wbc 4.1, hgb 8.2, plt 161. Na 139, K 4.3, Bun 106, Cr. 1.11, glu 81. L FTs WNR. </div><div>06/12/22: wbc 3.9, hgb 7.8, plt 178. Na 13 8, K 4.2, Bun 27, Cr. 0.99, glu 63.</div>
--- OUTSIDE RECORDS SUMMARY | 2022-06-19 00:23 | XMS_ITS | Encounter Summary ---
:1935 Author Care Team Providers Name Role Phone Art Ortiz Primary Care Provider [phone] [facility] - [address] Floor OTHER [phone] Reason for Visit Acute Rounding Visit Assessment and Plan Assessment Note AGREE WITH [employer] STUDENT 1. Anemia Assessment: - 6.6/20.9 today (06/16). - No dyspnea, increased weakness, dizzin ess, tachycardia, or tachypnea. - Needs to be transfused again. Plan: - Reach out to [facility] to get pt in toda y. Fax sent to them. Planned for next - Send to ED if unable to get pt transfu sed otherwise. Related to MDS follows with Dr Cantu onco through [facility] luspatercept treatments to continue as p er Hematology as well as prn transfusions. Hgb 7.8 yesterday, repeat CBC q sunday. Forward results to Dr. Cantu monitor labs and fax to oncology weekly 2. Hypocalcemia Assessment: - Calcium 7.7 today (06/16). Albumin 2.1 . - Calcium improved from 8.0 to 8.3 on . - Asymptomatic. - Corrected calcium is 9.2. Plan: - Continue to monitor. 3. Chronic hyponatremia - Sodium WNL today (06/16) at 138. [place] likely combo of decreased solute in take and SIADH. Responded well to fluid restriction and Urea. Continue 1500 cc fluid restriction BMP q sunday to trend 4. Hyperkalemia - 4.1 today (06/16). BMP q sunday to trend 5. Hypothyroidism - Recent TSH 25.08 - levothyroxine dose increased to 100 mc g on 06/13 - Continue levothyroxine 100 mcg daily. TSH in hosp 17.20 Monitor Repeat TSH in 6-8 wks. 6. Parkinson's disease Continue: primidone 100 mg at hs ropinirole 1.5 mg tid Rytary ER 23.75-95: 2 caps tid monitor for effect neurology fu prn 7. Weight loss Assessment: - Weights stable from 05/18 (115 to 116.5 pounds). - With weakness and failure to thrive Plan: - Will order weekly weights. 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 Continue to monitor weight, intake Seen by the dentist - refit dentures Monitor. Hospice met with family for informationa l visit - considering conservative end of life care. 8. Orthostatic hypotension Plan: - BP 112/80 on 06/09. - midodrine increased to 5 mg tid in the hospital. - Parameters for midodrine ordered (hold if SBP>110). - monitor VS. - Off metoprolol at this time. - No sx. 9. Atrial fibrillation . Regularly irregular on exam. - No SOB, chest discomfort. continue amiodarone - dose increased to 400 mg daily. Metoprolol stopped consider restarting AC - currently on ho ld due to SDH. Pt. unsure if she wants to restart. Monitor VS, CP status for change 10. Chronic obstructive lung disease Assessment: - Pt denies dyspnea, cough. - No resp distress on exam. - Lungs CTAB today. Continue: Anoro Ellipta 62.5-25 mcg/INH: one inhal ation daily - c/o sore throat - enc. to rinse mouth after use. montelukast 10 mg daily continue to monitor 11. Acute dermatitis Assessment: - Rash improved. - Persistent pruritis. moisturize skin at least daily - request ed again added hydrocortisone 1% cream bid prn [...] list Medications Administered None recorded. Vitals Height 5 ft 6 in Results Lab Results None recorded. Allergies Code Code System Name Reaction Severity Onset 998045 RxNorm Bactrim ? ? ? 8981999 RxNorm Dabigatran Etexilate ? ? ? 777601 RxNorm Dexlansoprazole ? ? ? 732665 RxNorm Dilaudid ? ? ? 3640 RxNorm Doxycycline ? ? ? 6211 RxNorm Lactose ? ? ? 542510 RxNorm Moxifloxacin ? ? ? 38487 RxNorm Vancomycin ? ? ? Notes: egg [...] you have a medical power of Y business attorney? What was the date of your [...] do you live? Apartment Notes: ILF at [facility] What is your relationship status? Functional Status Unknown. Past Encounters 06/16/2022 Anemia; Hypocalcemia; Chronic Hyponatrem ia; Hyperkalemia; Hypothyroidism; Parkinson's Disease; Weight Loss; Orthostatic Hypotension; Atrial Fibrillation; Chronic Obstructive Lung Disease; Acute Dermatitis GUILLERMO Chiu: [address] [place] [address], Ph. 06/13/2022 Chronic Hyponatremia; Hyperkalemia; Anem ia; Hypothyroidism; Parkinson's Disease; Weight Loss; Orthostatic Hypotension; Atrial Fibrillation; Chronic Constipation; Chronic Obstructive Lung Disease; Gastro esophageal Reflux Disease without Esopha gitis; Electrolyte Imbalance; Acute Dermatitis Lucila Engle NP: [address] [place] [address], Ph. 06/12/2022 Atrial Fibrillation; Chronic Obstructive Lung Disease; Eruption; Myelodysplastic Syndrome (Clinical); Weight Loss; Hypocalcemia GUILLERMO Chiu: [address] [facility] [place] [address], Ph. 06/08/2022 Chronic Hyponatremia; Hyperkalemia; Anem ia; Hypothyroidism; Parkinson's Disease; Weight Loss; Orthostatic Hypotension; Atrial Fibrillation; Chronic Constipation; Chronic Obstructive Lung Disease; Gastro esophageal Reflux Disease without Esopha gitis; Electrolyte Imbalance Lucila Engle NP: [address] [place] [address], Ph. 05/25/2022 Acute Dermatitis; Chronic Insomnia; Dry Eyes; Fracture of Superior Pubic Ramus; Myelodysplastic Syndrome (Clinical); Weight Loss; Hypothyroidism Lucila Engle MILL FEEDER: [address] , [place] [address], Ph. 05/23/2022 Weight Loss; Myelodysplastic Syndrome (C linical); Hypothyroidism Lucila Engle NP: [address] [place] [address], Ph. 05/22/2022 Dry Eyes Alejandrina SiegelLEEANNP: [address] [place] [address], Ph. 05/19/2022 Weight Loss; Atrial Fibrillation; Chroni c Hyponatremia; Chronic Obstructive Lung Disease; Chronic Tremor; Hypothyroidism; Myelodysplastic Syndrome (Clinical); Anemia; Gastroesophageal Reflux Disease wit hout Esophagitis; Orthostatic Hypotensio n; Parkinson's Disease; Restless Legs Alejandrina ReddyGUILLERMO boss: [address] [place] [address], Ph. History of Present Illness Note: <div>Pt seen for acute rounding visit. Pt has had no new issues since last visit. She still has right arm and axilla pruritis, unchanged from last visit. The actual rash has improved. She is noted to be anemic again and heme/onc has scheduled a transfusion for . </div><div>
</div><div>No SOB, chest discomfort, abdominal pain, constipation, diarrhea, dizziness, or pain.</div> Review of Systems: ROS as noted in the HPI Review of Systems ? Notes: <div>All others reviewed and negative unless otherwise stated in the HPI.</div> Physical Exam ? General Adult Exam Reported By: Patient Constitutional: General Appearance: well-dev eloped. Level of Distress: NAD. Ambulation: ; in chair Psychiatric: Insight: good judgement. Men david Status: active and alert, normal mood, normal affect. Orienta tion: to time, to place, to person. Memory: recent memory normal Head: Head: normocephalic, atrauma tic Eyes: Lids and Conjunctivae: non-i njected. EOM: EOMI. Sclerae: non-icteric ENMT: Hearing: hearing decreased. Oropharynx: moist mucous membranes Neck: Neck: FROM Lungs: Auscultation: breath sounds normal, good air movement, no wheezing, no rhonchi Cardiovascular: Heart Auscultation: irregula rly irregular Abdomen: Bowel Sounds: normal, soft, non-distended, no tenderness Musculoskeletal:: Extremities: no cyanosis, no edema. Joints, Bones, and Muscles normal movement of all extre mities Neurologic: Cranial Nerves: grossly inta ct Skin: Inspection and palpation: no ulcer, rash Notes: <div> 05/01/22 wbc 3.8, hgb 7 .4, hct 22.9, plt 168, na 132, k 4.4, bun 17, [facility] community center 0.69, sabi 7.7</d iv><div>05/08/22 wbc 4.1, hgb 6.8, hct 21.4, plt 149, na 133, k 4.3 , bun 20, director community center 0.91, sabi 7.7</div><div>05/15/22: wbc 4 .5, h&h [...] K 4.2, Bun 27, Cr. 0.99, glu 63.</div><div>06/16/22: WBC 4.3, RBC 2.2, H&H 6.6/20.9, MCV 93.3, MCHC 31.6, RW 19.5, plt 180, glucose 69, sodium 138, potassium 4.1, chloride 108, gap 10, BUN 21 , creat 0.82, eGFR 70, calcium 7.7, total protein 5.8, albumin 2 .1, total bili 0.3, AST 23, ALT 9, Alk Phos 113.</div>
--- OUTSIDE RECORDS SUMMARY | 2022-06-19 00:23 | XMS_ITS ---
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, with unspecified presence of clinical manifestation ALLERGIES Substance Reaction Event Type Date Status Vancomycin HCl rash Drug Allergy Aug, Active Doxycycline Hyclate diarrhea Drug Allergy Aug, Active Dilaudid vomiting Drug Allergy Aug, Inactive Dexilant diarrhea Drug Allergy Aug, Active Bactrim vomiting Drug Allergy Aug, Active Moxifloxacin insomnia/avalox Drug Allergy Aug, Active Pradaxa heartburn Drug Allergy Aug, Active ENCOUNTERS Encounter Location Date Diagnosis [address] 18 Oct, 2021 [facility] [place] [address] [facility] [employer] [facility] [address] Aug, Atheroscl erosis of lime [place], [place] artery of both l ower [address] extremities, wit h unspecified pres ence of clinical manifes tation I70.203 ; Tinea unguium B35.1 ; Pain in right toe(s) M79.674 ; Pain in left toe(s) M79. 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 74 [employer] [facility] [employer] [facility] [employer] [facility] [place] [address] 27 Apr, 2021 Other ham scarlet toe(s) [facility] [place]acquired), [place] foot [address] M20.41 [employer] [facility] [employer] [facility] [place] [address] 22 Apr, 2021 Atheroscl erosis of [place], [place] artery of both l ower [address] extremities, wit h unspecified pres ence of clinical manifes tation I70.203 ; Tinea unguium B35.1 ; Pain in right toe(s) M79.674 ; Pain in left toe(s) M79. 675 and Ingrowing nail L 60.0 [facility] [address] Feb, [place] [address] [employer] [facility] [employer] [facility] [address] Feb, Atheroscl erosis of lime [place], [place] artery of both l [place]wer [address] extremities, wit h unspecified pres ence of clinical manifes tation I70.203 ; Tinea unguium B35.1 ; Pain in right toe(s) M79.674 ; Pain in left toe(s) M79. 675 ; Ingrowing nail L 60.0 and Other hammer toe (s) (acquired), righ t foot M20.41 [facility] [place] [address] December, [place] [address] [facility] [place] [address] December, Atheroscl erosis of lime [place], [place] artery of both l [place]wer [address] extremities, wit h unspecified pres ence of clinical manifes tation I70.203 ; Tinea unguium B35.1 ; Pain in right toe(s) M79.674 ; Pain in left toe(s) M79. 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 675 and Ingrowing nail L 60.0 [facility] [place] [address] Jun, Atheroscl erosis of lime [place], [place] artery of both l [place]wer [address] extremities, wit h unspecified pres ence of clinical manifes tation I70.203 ; Tinea unguium B35.1 ; Pain in right toe(s) M79.674 a nd Pain in left toe(s) M79. 675 [facility] [address] [place] [address] Apr, Atheroscl erosis of lime [place] artery of both l [place]wer [address] extremities, wit h unspecified pres ence of clinical manifes tation I70.203 ; Tinea unguium B35.1 ; Pain in right toe(s) M79.674 a nd Pain in left toe(s) M79. 675 [facility] [address] [place] [address] Feb, Atheroscl erosis of lime [place] artery of both l [place]wer [address] extremities, wit h unspecified pres ence of clinical manifes tation I70.203 ; Tinea unguium B35.1 ; Pain in right toe(s) M79.674 a nd Pain in left toe(s) M79. 675 [facility] [address] [place] [address] Jan, [facility] [place] [address] [facility] [address] [place] [address] 15 Jan, 2020 [place] [address] [facility] [address] 02 Jan, 2020 [place] [address] [facility] [address] [place] [address] Oct, Atheroscl [place]osis [place] [address] extremities, wit h unspecified pres ence of clinical manifes tation I70.203 ; Tinea unguium B35.1 ; Pain in right toe(s) M79.674 a nd Pain in left toe(s) M79. 675 [facility] [address] [place] [address] Aug, Atheroscl [place]osis [place] [address] extremities, wit h unspecified pres ence of clinical manifes tation I70.203 ; Tinea unguium B35.1 ; Pain in right toe(s) M79.674 a nd Pain in left toe(s) M79. 675 [facility] [place] [address] Jun, Atheroscl [place]osis [place] [address] extremities, wit h unspecified pres ence of clinical manifes tation I70.203 ; Tinea unguium B35.1 ; Pain in right toe(s) M79.674 a nd Pain in left toe(s) M79. 675 [facility] [address] [place] [address] May, [place] [address] [facility] [address] Mar, Atheroscl erosis of [place], [place] artery of both l [facility] [address] extremities, wit h unspecified pres ence of clinical manifes tation I70.203 ; Ingrow ing nail L60.0 ; Tinea un guium B35.1 ; Pain in right toe(s) M79.674 a nd Pain in left toe(s) M79. 675 [facility] [address] [facility] 301 Jan, Atheroscl erosis of lime [place] artery of both l [place]wer [address] extremities, wit h unspecified pres ence of clinical manifes tation I70.203 ; Tinea unguium B35.1 ; Pain in right toe(s) M79.674 a nd Pain in left toe(s) M79. 675 [facility] [address] [place] [address] Oct, Atheroscl erosis of lime [place] artery of both l [place]wer [address] extremities with other clinical manifes tation I70.293 ; Tinea unguium B35.1 ; Pain in right toe(s) M79.674 a nd Pain in left toe(s) M79. 675 [facility] [address] [place] [address] Aug, Unspecifi ed [place] atherosclerosis of lime [address] arteries of extr emities, bilateral legs I 70.203 ; Tinea unguium B3 5.1 ; Pain in right toe(s) M79.674 and Pain in left toe(s) M79.675 [facility] [address] [place] [address] May, Unspecifi [place] atherosclerosis of lime [address] arteries of extr emities, bilateral legs I 70.203 ; Tinea unguium B3 5.1 ; Pain in right toe(s) M79.674 and Pain in left toe(s) M79.675 [facility] [address] [place] [address] Feb, Ingrowing nail L60.0 ; [place] Un[place] [address] atherosclerosis of lime arteries of extr emities, bilateral legs I 70.203 ; Tinea unguium B3 5.1 ; Pain in right toe(s) M79.674 and Pain in left toe(s) M79.675 [facility] [address] [place] [address] December, Unspecifi [place] atherosclerosis of lime [address] arteries of extr emities, bilateral legs I 70.203 ; Tinea unguium B3 5.1 ; Pain in right toe(s) M79.674 and Pain in left toe(s) M79.675 [facility] [address] [facility] 301 Oct, [place] [address] [facility] [address] [place] [address] Sep, [place], [place] atherosclerosis of lime [address] arteries of extr emities, bilateral legs I 70.203 ; Tinea unguium B3 5.1 ; Pain in right toe(s) M79.674 and Pain in left toe(s) M79.675 [facility] [address] [facility] 301 Sep, [place] [address] [facility] [address] [place] [address] Jun, [place] [address] [facility] [address] [place] [address] Apr, [place], [place] atherosclerosis of lime [address] arteries of extr emities, bilateral legs I 70.203 ; Tinea unguium B3 5.1 ; Pain in right toe(s) M79.674 and Pain in left toe(s) M79.675 [facility] [address] [place] [address] Feb, [place] atherosclerosis of lime [address] arteries of extr emities, bilateral legs I 70.203 ; Tinea unguium B3 5.1 ; Pain in right toe(s) M79.674 ; Pain in left toe (s) M79.675 and Ingr owing nail L60.0 [facility] [address] [place] [address] Nov, [place] atherosclerosis of lime [address] arteries of extr emities, bilateral legs I 70.203 ; Tinea unguium B3 5.1 ; Pain in right toe(s) M79.674 and Pain in left toe(s) M79.675 [facility] [address] [place] [address] Sep, [place] [address] [facility] [address] [place] [address] Sep, [place] atherosclerosis of lime [address] arteries of extr emities, bilateral legs I 70.203 ; Plantar fascial fibromatosis M72 .2 ; Localized swelli ng, mass and lump, right lower limb R22.41 ; Tinea u nguium B35.1 ; Pain in right toe(s) M79.674 a nd Pain in left toe(s) M79. 675 [facility] [address] [facility] [address] Sep, [place] [address] IMMUNIZATIONS Vaccine Route Administration Date Status COVID-19 Pfizer BioNT[employer] Vaccine Unknown May 23, 2021 Administered SOCIAL HISTORY Qualifiers Date Former Smoker 1991 REASON FOR REFERRAL FUNCTIONAL STATUS PLAN OF CARE Activity Details Future/Pending Procedure 44756-SJENJYB NAIL, 1-5 Future/Pending Procedure 47424-Phzphdsl Plate Future/Pending Procedure 26784-JJSK SKIN LESIONS, 2 T O 4 Future/Pending Procedure M2725-MNATOSIC DYSTROPHIC NA ILS ANY # Future/Pending Procedure 19260 - Tenotomy, open flexo r Future/Pending Procedure 13476-WVBJFXQ NAIL, 1-5 Future/Pending Procedure 03160-Sjsgmtyp Plate Future/Pending Procedure 78224-JQVX SKIN LESIONS, 2 T O 4 Future/Pending Procedure S5152-QABHHPBW DYSTROPHIC NA ILS ANY # Future/Pending Procedure 43139-MKBUVUU NAIL, 1-5 Future/Pending Procedure 57411-Wehpjgro Plate Future/Pending Procedure 59311-AKDA SKIN LESIONS, 2 T O 4 Future/Pending Procedure Z9355-QFHNHQUR DYSTROPHIC NA ILS ANY # Future/Pending Procedure 29195-OCTNRCW NAIL, 1-5 Future/Pending Procedure 90641-Xydceoyh Plate Future/Pending Procedure 80845-IRST SKIN LESIONS, 2 T O 4 Future/Pending Procedure G0110-FJLNBXHS DYSTROPHIC NA ILS ANY # Future/Pending Procedure 34235-XCMFXXM NAIL, 1-5 Future/Pending Procedure 61801-Aggffnxj Plate Future/Pending Procedure 35831-QABW SKIN LESIONS, 2 T O 4 Future/Pending Procedure T4662-GHIGLZAK DYSTROPHIC NA ILS ANY # Future/Pending Procedure 97769-LOFBFNW NAIL, 1-5 Future/Pending Procedure 21423-CAAC SKIN LESIONS, 2 T O 4 Future/Pending Procedure N6562-JKYGDLGN DYSTROPHIC NA ILS ANY # Future/Pending Procedure 03119-TBIFIYB NAIL, 1-5 Future/Pending Procedure 95134-CWRR SKIN LESIONS, 2 T O 4 Future/Pending Procedure J8441-QZNFEEKW DYSTROPHIC NA ILS ANY # Future/Pending Procedure 62690-UTYGNFB NAIL, 1-5 Future/Pending Procedure 11768-KDOO SKIN LESIONS, 2 T O 4 Future/Pending Procedure T6527-RWDFCIJM DYSTROPHIC NA ILS ANY # Future/Pending Procedure 46491-VTTZXDH NAIL, 1-5 Future/Pending Procedure 25568-GFRW SKIN LESIONS, 2 T O 4 Future/Pending Procedure Z7952-RAHIPWOS DYSTROPHIC NA ILS ANY # Future/Pending Procedure 85979-JMRWWUA NAIL, 1-5 Future/Pending Procedure 83806-EFNX SKIN LESIONS, 2 T O 4 Future/Pending Procedure Z7820-AUIONNGJ DYSTROPHIC NA ILS ANY # Future/Pending Procedure 82367-NTXYWWT NAIL, 1-5 Future/Pending Procedure 38554-EFWR SKIN LESIONS, 2 T O 4 Future/Pending Procedure A4464-EJDMTRCM DYSTROPHIC NA ILS ANY # Future/Pending Procedure 01035-LEMOCLH NAIL, 1-5 Future/Pending Procedure 55234-Ttmuxooq Plate Future/Pending Procedure 76462-YSEU SKIN LESIONS, 2 T O 4 Future/Pending Procedure L7143-RKUOUJEQ DYSTROPHIC NA ILS ANY # Future/Pending Procedure 47399-AGZOLOQ NAIL, 1-5 Future/Pending Procedure 20926-WKAV SKIN LESIONS, 2 T O 4 Future/Pending Procedure W7996-UMUMKDAT DYSTROPHIC NA ILS ANY # Future/Pending Procedure 45095-QTQBKDO NAIL, 1-5 Future/Pending Procedure 68104-RRVM SKIN LESIONS, 2 T O 4 Future/Pending Procedure F8273-EHZDBUFQ DYSTROPHIC NA ILS ANY # Future/Pending Procedure 19417-YIHCLON NAIL, 1-5 Future/Pending Procedure 42646-VJLO SKIN LESIONS, 2 T O 4 Future/Pending Procedure C9226-TAIVLJWF DYSTROPHIC NA ILS ANY # Future/Pending Procedure 27948-XHUMQYY NAIL, 1-5 Future/Pending Procedure 03744-GANH SKIN LESIONS, 2 T O 4 Future/Pending Procedure Z3719-MAAFYLRI DYSTROPHIC NA ILS ANY # Future/Pending Procedure 17443-WKPBEUY NAIL, 1-5 Future/Pending Procedure 04116-Cjswmzlb Plate Future/Pending Procedure 78706-YHRQ SKIN LESIONS, 2 T O 4 Future/Pending Procedure L5578-LQCZZUSX DYSTROPHIC NA ILS ANY # Future/Pending Procedure 04786-XYRIEIZ NAIL, 1-5 Future/Pending Procedure 15751-DDUZ SKIN LESIONS, 2 T O 4 Future/Pending Procedure V7919-ZEZTMYFN DYSTROPHIC NA ILS ANY # Future/Pending Procedure 30286-YUCOQPM NAIL, 1-5 Future/Pending Procedure 47882-LVHD SKIN LESIONS, 2 T O 4 Future/Pending Procedure A4726-SXTCHWVO DYSTROPHIC NA ILS ANY # Future/Pending Procedure 57225-TTGRRRW NAIL, 1-5 Future/Pending Procedure 62981-RFEH SKIN LESIONS, 2 T O 4 Future/Pending Procedure D5509-CPINVKVH DYSTROPHIC NA ILS ANY # Future/Pending Procedure 55681-OOGMTHP NAIL, 1-5 Future/Pending Procedure 04685-Ygthlpma Plate Future/Pending Procedure 03333-TDRR SKIN LESIONS, 2 T O 4 Future/Pending Procedure D9592-AIHWGAJX DYSTROPHIC NA ILS ANY # Future/Pending Procedure 98659-RZSROAT NAIL, 1-5 Future/Pending Procedure 62817-UXIL SKIN LESIONS, 2 T O 4 Future/Pending Procedure R9959-VRUVWMNC DYSTROPHIC NA ILS ANY # Future/Pending Procedure 59590-CXOUZBR NAIL, 1-5 Future/Pending Procedure 37012-HMIG SKIN LESIONS, 2 T O 4 Future/Pending Procedure U3266-LESAARTW DYSTROPHIC NA ILS ANY # VITAL SIGNS Height 5 ft 6 in in 2021-09-14 Weight 130 lbs 2021-09-14 BMI 20.98 kg/m2 2021-09-14 Heart Rate 82 /min 2019-11-13 Temperature 96.8 degrees Fahrenheit 2020-12-20 Blood pressure systolic 117 mm Hg 2020-02-23 Blood pressure diastolic 70 mm Hg 2020-02-23 MEDICATIONS Medication Instructions Dosage Frequency Start End Duration Statu s Date Date Montelukast Active Sodium Methenamine Not-Takin Hippurate g Zantac Active Warfarin Sodium Orally Once a 1 tablet 24h A ctive 2.5 MG day Gabapentin & Diet Active Manage Prod Spiriva Not-Takin HandiHaler g Estrace Active Caltrate 600+D 1 tablet 12h Not-Taki n g Eliquis Active MiraLax Active Amiodarone HCl Orally Once a 1 tablet 24h No t-Takin 200 MG day g Vitamin C Active Myrbetriq Active Citrucel 24h Active Keflex 500 MG Orally take 2 1 capsule 12 Feb, 1 days Ac tive capsules prior 2020 to and 2 capsules after procedure rOPINIRole HCl Active Levothyroxine Orally Once a 1 tablet 24h Act isaac Sodium 75 MCG day on an empty stomach in the morning Tylenol Active Diclofenac Active Metoprolol Active Succinate Devi Colon Active Health Colace 100 MG Orally Once a 1 capsule 24h Ac tive day as needed Gas Relief Active Vitamin D 24h Active Ipratropium Active [place] NexIUM 40 MG Orally Once a 1 capsule 24h Act isaac day Anoro Ellipta Active Systane Active Multivitamin 24h Active Vitamin D Not-Takin g Alendronate Active Sodium ZyrTEC Active Darifenacin Orally Once a 1 tablet 24h Not-T yaw Hydrobromide ER day with g 7.5 MG liquid Primidone 150mg Active immodium Active PROCEDURES Procedure Date Ordered Result Body Site TRIM SKIN LESIONS, TO Oct 10, 2017 TRIM SKIN LESIONS, TO December 26, 2017 TRIMMING DYSTROPHIC NAILS ANY # Oct 04, 2016 DEBRIDE NAIL, -December 20, 2020 Avulsion Plate December 20, 2020 Avulsion Plate May 11, 2021 TRIM SKIN LESIONS, TO Apr 28, 2020 TRIMMING DYSTROPHIC NAILS ANY # Apr 28, 2020 TRIM SKIN LESIONS, TO February 23, 2020 TRIMMING DYSTROPHIC NAILS ANY # February 23, 2020 TRIM SKIN LESIONS, TO Sep 04, 2019 TRIMMING DYSTROPHIC NAILS ANY # Sep 04, 2019 TRIMMING DYSTROPHIC NAILS ANY # Jun 25, 2019 TRIM SKIN LESIONS, TO Oct 04, 2016 TRIM SKIN LESIONS, TO Jun 13, 2018 TRIMMING DYSTROPHIC NAILS ANY # Apr 02, 2019 DEBRIDE NAIL, -May 11, 2021 TRIMMING DYSTROPHIC NAILS ANY # December 26, 2017 TRIMMING DYSTROPHIC NAILS ANY # November 13, 2019 TRIM SKIN LESIONS, TO November 13, 2019 TRIMMING DYSTROPHIC NAILS ANY # Oct 10, 2017 TRIMMING DYSTROPHIC NAILS ANY # Jun 30, 2020 TRIM SKIN LESIONS, TO Jun 30, 2020 Avulsion Plate March 06, 2018 TRIM SKIN LESIONS, TO Sep 02, 2018 TRIM SKIN LESIONS, TO November 13, 2018 TRIM SKIN LESIONS, TO January 22, 2019 TRIM SKIN LESIONS, TO May 11, 2021 DEBRIDE NAIL, -Jun 30, 2020 TRIM SKIN LESIONS, TO February 28, 2021 DEBRIDE NAIL, -Sep 04, 2019 DEBRIDE NAIL, -Apr 28, 2020 TRIMMING DYSTROPHIC NAILS ANY # December 20, 2020 TRIMMING DYSTROPHIC NAILS ANY # May 11, 2021 DEBRIDE NAIL, 08-24December 26, 2017 DEBRIDE NAIL, 08-24Oct 10, 2017 TRIMMING DYSTROPHIC NAILS ANY # Jun 13, 2018 DEBRIDE NAIL, 08-24February 23, 2020 DEBRIDE NAIL, 08-24Jun 13, 2018 TRIM SKIN LESIONS, TO Sep 14, 2021 TRIM SKIN LESIONS, TO Sep 09, 2020 TRIMMING DYSTROPHIC NAILS ANY # February 28, 2021 DEBRIDE NAIL, 08-24Sep 09, 2020 TRIMMING DYSTROPHIC NAILS ANY # Sep 02, 2018 TRIM SKIN LESIONS, TO February 21, 2017 Avulsion Plate February 21, 2017 DEBRIDE NAIL, 08-24March 06, 2018 TRIMMING DYSTROPHIC NAILS ANY # Sep 14, 2021 TRIM SKIN LESIONS, TO May 02, 2017 TRIM SKIN LESIONS, TO March 06, 2018 DEBRIDE NAIL, 08-24February 28, 2021 DEBRIDE NAIL, 08-24Oct 04, 2016 DEBRIDE NAIL, 08-24Jun 25, 2019 DEBRIDE NAIL, 08-24November 13, 2018 TRIM SKIN LESIONS, TO December 20, 2020 DEBRIDE NAIL, 08-24January 22, 2019 TRIM SKIN LESIONS, TO Apr 02, 2019 DEBRIDE NAIL, 08-24November 13, 2019 Avulsion Plate Apr 02, 2019 INCISION OF FOOT TENDON(S) May 16, 2021 TRIM SKIN LESIONS, TO Jun 25, 2019 TRIMMING DYSTROPHIC NAILS ANY # January 22, 2019 DEBRIDE NAIL, 08-24Apr 02, 2019 TRIMMING DYSTROPHIC NAILS ANY # February 21, 2017 DEBRIDE NAIL, 08-24February 21, 2017 TRIMMING DYSTROPHIC NAILS ANY # March 06, 2018 TRIMMING DYSTROPHIC NAILS ANY # May 02, 2017 DEBRIDE NAIL, 08-24Sep 02, 2018 TRIMMING DYSTROPHIC NAILS ANY # November 13, 2018 Avulsion Plate Sep 09, 2020 DEBRIDE NAIL, 08-24Sep 14, 2021 Avulsion Plate Sep 14, 2021 TRIM SKIN LESIONS, TO December 13, 2016 TRIMMING DYSTROPHIC NAILS ANY # December 13, 2016 DEBRIDE NAIL, 08-24May 02, 2017 DEBRIDE NAIL, 08-24December 13, 2016 Avulsion Plate February 28, 2021 TRIMMING DYSTROPHIC NAILS ANY # Sep 09, 2020 RESULTS No Results REASON FOR VISIT Insurance Providers Health Health Health Health Health Member Patient Patient Patient Patient Patient Subscriber Subscriber Subscriber Group Insurance Plan Plan Plan Plan ID Relationship Address Phone Name Date of ID Name Date of No Type Insurance Insurance Insurance Coverage to Subscriber Address Phone Name Dates Medicare National [id number] Medicare self Ximena 1935 [id number] Govt [employer] [address] [employer] [address] [place] [address] [employer] [phone] Medex Blue self Ximena 19 [id number] Shield [id number] [place] [address] MEDICAL (GENERAL) HISTORY Type Description Date Medical History Anemia Medical History Arthritis Medical History Atrial fibrillation Medical History Back pain, bulging disc Medical History Gastroesophageal reflux disease (GERD) Medical History Hiatal hernia Medical History High blood pressure Medical History Osteoporosis Medical History Sleep apnea Medical History Thyroid disorder, low Medical History tendonitis, shoulders Medical History torn bicep tendon Medical History Measles Medical History Mumps Medical History Chicken pox Medical History disseminated superficial actinic poroker atosis Medical History hydrocephalus Surgical History right knee replacement 2013 Surgical History left knee replacement 2005 Surgical History knee surgery, right, cartiledge removal 1995 Surgical History gall bladder removal 1991 Surgical History cyst removal, throat 1988 Surgical History knee surgery, left 1968 Surgical History appendectomy 1965 Hospitalization History [facility] Fuentes 09/05/16 Hospitalization History [facility]IA Smalls 01/2020 Hospitalization History [facility]ina- ines, concussion, ct scan 02/18 021 Hospitalization History Rehab, [facility]ina for four days 08/2021
--- OUTSIDE RECORDS SUMMARY | 2022-06-19 00:23 | XMS_ITS ---
:1935 Author Care Team Providers Name Role Phone JAYDE CARTER Primary Care Provider [phone] ANTIONE CASTRO - 4TH FLOOR OTHER [phone] Allergies Code Code System Name Reaction Severity Status Onset 025725 RxNorm Bactrim ? ? Active ? 4729247 RxNorm Dabigatran Etexilate ? ? Active ? 922528 RxNorm Dexlansoprazole ? ? Active ? 296302 RxNorm Dilaudid ? ? Active ? 3640 RxNorm Doxycycline ? ? Active ? 6211 RxNorm Lactose ? ? Active ? 794585 RxNorm Moxifloxacin ? ? Active ? 34027 RxNorm Vancomycin ? ? Active ? Notes: egg Medications No Medications Reported Notes: med list reviewed, see MAR for complete list Problems Name Status Onset Date Source ? [...] Eruption Active 06/12/2022 ? Procedures None recorded. Results Lab Results None recorded. Past Encounters 06/16/2022 Anemia; Hypocalcemia; Chronic Hyponatrem ia; Hyperkalemia; Hypothyroidism; Parkinson's Disease; Weight Loss; Orthostatic Hypotension; Atrial Fibrillation; Chronic Obstructive Lung Disease; Acute Dermatitis GUILLERMO Chiu: [address], [place] [address], Ph. 06/13/2022 Chronic Hyponatremia; Hyperkalemia; Anem ia; Hypothyroidism; Parkinson's Disease; Weight Loss; Orthostatic Hypotension; Atrial Fibrillation; Chronic Constipation; Chronic Obstructive Lung Disease; Gastro esophageal Reflux Disease without Esopha gitis; Electrolyte Imbalance; Acute Dermatitis Lucila Engle NP: [address], [place] [address], Ph. 06/12/2022 Atrial Fibrillation; Chronic Obstructive Lung Disease; Eruption; Myelodysplastic Syndrome (Clinical); Weight Loss; Hypocalcemia GUILLERMO Chiu: [address], [place] [address], Ph. 06/08/2022 Chronic Hyponatremia; Hyperkalemia; Anem ia; Hypothyroidism; Parkinson's Disease; Weight Loss; Orthostatic Hypotension; Atrial Fibrillation; Chronic Constipation; Chronic Obstructive Lung Disease; Gastro esophageal Reflux Disease without Esopha gitis; Electrolyte Imbalance Lucila Engle PUBLIC INFORMATION DIRECTOR: [address], [place] [address], Ph. 05/25/2022 Acute Dermatitis; Chronic Insomnia; Dry Eyes; Fracture of Superior Pubic Ramus; Myelodysplastic Syndrome (Clinical); Weight Loss; Hypothyroidism Lucila Engle NP: [address], [place] [address], Ph. 05/23/2022 Weight Loss; Myelodysplastic Syndrome (C linical); Hypothyroidism Lucila Engle NP: [address], [place] [address], Ph. 05/22/2022 Dry Eyes GUILLERMO Chiu: [address], [place] [address], Ph. 05/19/2022 Weight Loss; Atrial Fibrillation; Chroni c Hyponatremia; Chronic Obstructive Lung Disease; Chronic Tremor; Hypothyroidism; Myelodysplastic Syndrome (Clinical); Anemia; Gastroesophageal Reflux Disease wit hout Esophagitis; Orthostatic Hypotensio n; Parkinson's Disease; Restless Legs GUILLERMO Chiu: [address], [place] [address], Ph. 05/15/2022 Chronic Hyponatremia; Anemia; Acute Cons tipation; Orthostatic Hypotension; Pain of Right Shoulder Joint GUILLERMO Chiu: [address], [place] [address], Ph. 05/08/2022 Anemia GUILLERMO Chiu: [address], [place] [address], Ph. 05/04/2022 Sore Throat Symptom; Weight Loss; Chroni c Hyponatremia; Anemia; Atrial Fibrillation; Chronic Obstructive Lung Disease; Gastroesophageal Reflux Disease without Esophagitis; Myelodysplastic Syndrome (Clin ical); Hypothyroidism; Parkinson's Disea se; Restless Legs; Orthostatic Hypotension; Chronic Pain; Nausea; Chronic Constipation; Subdural Hematoma; Fracture of Superior Pubic Ramus; Fracture of Inferior Pubic Ramus; Chronic Tremor Lucila Engle PUBLIC INFORMATION DIRECTOR: [address], [place] [address], Ph. 05/01/2022 Weight Loss; Chronic Hyponatremia; Anemi a LEEANN ChiuP: [address], [place] [address], Ph. 04/28/2022 Atrial Fibrillation; Chronic Obstructive Lung Disease; Gastroesophageal Reflux Disease without Esophagitis; Myelodysplastic Syndrome (Clinical); Hypothyroidism; Parkinson's Disease; Restless Legs; Orthostatic Hypotension; Chronic Pain Maddy Smith MD: [address], [place] [address], Ph. 04/25/2022 Myelodysplastic Syndrome (Clinical); Par kinson's Disease; Chronic Obstructive Lung Disease; Acute Low Back Pain; Orthostatic Hypotension; Nausea; Anemia; Chronic Hyponatremia; Atrial Fibrillation; Chron ic Constipation; Subdural Hematoma; Frac ture of Superior Pubic Ramus; Fracture of Inferior Pubic Ramus; Hypothyroidism; Chronic Tremor Lucila Engle PUBLIC INFORMATION DIRECTOR: [address] [place] [address], Ph. 04/20/2022 Myelodysplastic Syndrome (Clinical); Par kinson's Disease; Acute Low Back Pain; Nausea; Anemia; Chronic Constipation; Subdural Hematoma; Fracture of Superior Pubic Ramus; Fracture of Inferior Pubic Ramus ; Atrial Fibrillation; Hypothyroidism; O rthostatic Hypotension; Chronic Hyponatremia; Chronic Tremor Lucila Engle PUBLIC INFORMATION DIRECTOR: [address] [place] [address], Ph. 04/18/2022 Myelodysplastic Syndrome (Clinical); [place]; Anemia; Chronic Constipation; Parkinson's Disease; Subdural Hematoma; Fracture of Superior Pubic Ramus; Fracture of Inferior Pubic Ramus; Atrial Fibrillation ; Hypothyroidism; Orthostatic Hypotensio n; Chronic Hyponatremia Lucila Engle PUBLIC INFORMATION DIRECTOR: [address] [place] [address], Ph. 04/10/2022 Myelodysplastic Syndrome (Clinical); [place]; Chronic Constipation; Parkinson's Disease; Subdural Hematoma; Fracture of Superior Pubic Ramus; Fracture of Inferior Pubic Ramus; Atrial Fibrillation; Hypoth yroidism; Orthostatic Hypotension; Chron ic Hyponatremia Marija Morrow MD: [address] [place] [address], Ph. 04/07/2022 Anemia; Parkinson's Disease GUILLERMO Chiu: [address] [facility] [place] [address], Ph. 04/06/2022 Anemia; Acute Constipation; Fracture of Superior Pubic Ramus; Atrial Fibrillation; Hypothyroidism; Orthostatic Hypotension; Myelodysplastic Syndrome (Clinical); Chronic Hyponatremia Lucila Engle PUBLIC INFORMATION DIRECTOR: [address] [place] [address], Ph. 04/03/2022 Anemia; Acute Constipation GUILLERMO Chiu: [address], [place] [address], Ph. 03/31/2022 Acute Constipation GUILLERMO Chiu: [address], [place] [address], Ph. 03/30/2022 Fracture of Superior Pubic Ramus Lucila Engle PUBLIC INFORMATION DIRECTOR: [address], [place] [address], Ph. 03/27/2022 Anemia; Chronic Hyponatremia GUILLERMO Chiu: [address], [place] [address], Ph. 03/24/2022 Atrial Fibrillation; Chronic Obstructive Lung Disease; Hypothyroidism; Orthostatic Hypotension; Myelodysplastic Syndrome (Clinical); Parkinson's Disease; Restless Legs; Chronic Hyponatremia; Fall; Anemi a; Chronic Tremor; Gastroesophageal Refl ux Disease without Esophagitis; Fracture of Single Pubic Ramus GUILLERMO Chiu: [address], [place] [address], Ph. 03/20/2022 Anemia; Gastroesophageal Reflux Disease without Esophagitis GUILLERMO Chiu: [address], [place] [address], Ph. 03/13/2022 Anemia; Gastroesophageal Reflux Disease without Esophagitis GUILLERMO Chiu: [address], [place] [address], Ph. 03/10/2022 Urinary Tract Infectious Disease; Anemia ; Myelodysplastic Syndrome (Clinical); Fracture of Single Pubic Ramus GUILLERMO Chiu: [address], [place] [address], Ph. 03/07/2022 Chronic Hyponatremia; Fracture of Single Pubic Ramus; Atrial Fibrillation GUILLERMO Chiu: [address], [place] [address], Ph. 03/03/2022 Subdural Hematoma; Fracture of Superior Pubic Ramus; Fracture of Inferior Pubic Ramus; Myelodysplastic Syndrome (Clinical); Atrial Fibrillation; Chronic Obstructive Lung Disease; Hypothyroidism; Orthost atic Hypotension; Parkinson's Disease; R estless Legs; Chronic Hyponatremia; Fall Marija Morrow MD: [address] [place] [address], Ph. 03/02/2022 Subdural Hematoma; Fracture of Single Pu bic Ramus; Myelodysplastic Syndrome (Clinical); Atrial Fibrillation; Chronic Obstructive Lung Disease; Hypothyroidism; Orthostatic Hypotension; Parkinson's Disease; Restless Legs; Chronic Hyponatremia; Fall Delilah Diehl : [address] [place] [address], Ph. Social History Tobacco Smoking Status Former Smoker Notes: quit 20 yrs ago Vaccine List Vaccine Type influenza, injectable, quadrivalent 05/27/2018 04/18/2019 pneumococcal conjugate PCV 13 12/22/2016 pneumococcal polysaccharide PPV23 07/03/2003 Td (adult) 03/02/2008 zoster live 11/02/2010 Notes: rec'd from PCP 11/16, flu vax re fused per PCC Plan of Care Reminders Provider Appointments None recorded. ? ? Lab None recorded. ? ? Referral None recorded. ? ? Procedures None recorded. ? ? Surgeries None recorded. ? ? Imaging None recorded. ? ? Vitals 06/16/2022 09:01AM Acute Rounding Visit Height 5 ft 6 in 06/13/2022 01:59PM Acute Rounding Visit Height Blood Pressure 5 ft 6 in 112/80 mm[Hg] 06/12/2022 09:04AM Acute Rounding Visit Height Blood Pressure 5 ft 6 in 112/80 mm[Hg] 06/08/2022 11:23AM Readmission Height Blood Pressure 5 ft 6 in 115/62 mm[Hg] 05/25/2022 02:14PM Acute Rounding Visit Height Blood Pressure 5 ft 6 in 105/70 mm[Hg] 05/23/2022 02:55PM Acute Rounding Visit Height Blood Pressure 5 ft 6 in 107/72 mm[Hg] 05/22/2022 10:09AM Acute Rounding Visit Height Weight BMI Blood Pressure 5 ft 6 in 116.5 lbs 18.8 kg/m2 90/55 mm[Hg] 05/19/2022 10:40AM Routine Rounding Visit Height Weight BMI Blood Pressure 5 ft 6 in 115 lbs 18.6 kg/m2 92/61 mm[Hg] 05/15/2022 09:17AM Acute Rounding Visit Height Blood Pressure 5 ft 6 in 91/49 mm[Hg] 05/08/2022 09:31AM Acute Rounding Visit Height Weight BMI Blood Pressure 5 ft 6 in 121.9 lbs 19.7 kg/m2 103/57 mm[Hg] 05/04/2022 10:43AM Acute Rounding Visit Height Blood Pressure 5 ft 6 in 100/58 mm[Hg] 05/01/2022 10:33AM Acute Rounding Visit Height Weight BMI Blood Pressure 5 ft 6 in 120.5 lbs 19.4 kg/m2 124/69 mm[Hg] 04/28/2022 09:02AM Routine Rounding Visit Height Blood Pressure 5 ft 6 in 93/63 mm[Hg] 04/25/2022 02:15PM Acute Rounding Visit Height Blood Pressure 5 ft 6 in 93/63 mm[Hg] 04/20/2022 12:47PM Acute Rounding Visit Height Blood Pressure 5 ft 6 in 135/69 mm[Hg] 04/18/2022 09:40AM Acute Rounding Visit Height Blood Pressure 5 ft 6 in 121/63 mm[Hg] 04/10/2022 04:51PM Acute Rounding Visit Height Weight BMI Blood Pressure 5 ft 6 in 126.1 lbs 20.4 kg/m2 128/63 mm[Hg] 04/07/2022 11:07AM Acute Rounding Visit Height Blood Pressure 5 ft 6 in 115/69 mm[Hg] 04/06/2022 02:19PM Acute Rounding Visit Height Blood Pressure 5 ft 6 in 109/67 mm[Hg] 04/03/2022 11:02AM Acute Rounding Visit Height Blood Pressure 5 ft 6 in 116/71 mm[Hg] 03/31/2022 11:59AM Acute Rounding Visit Height Weight BMI Blood Pressure 5 ft 6 in 126.1 lbs 20.4 kg/m2 114/61 mm[Hg] 03/30/2022 03:22PM Acute Rounding Visit Height Blood Pressure 5 ft 6 in 133/75 mm[Hg] 03/27/2022 11:40AM Acute Rounding Visit Height Blood Pressure 5 ft 6 in 93/49 mm[Hg] 03/24/2022 12:12PM Routine Rounding Visit Height Blood Pressure 5 ft 6 in 125/60 mm[Hg] 03/20/2022 10:53AM Acute Rounding Visit Height Blood Pressure 5 ft 6 in 99/60 mm[Hg] 03/13/2022 12:10PM Acute Rounding Visit Height Blood Pressure 5 ft 6 in 132/63 mm[Hg] 03/10/2022 10:05AM Acute Rounding Visit Height Blood Pressure 5 ft 6 in 118/69 mm[Hg] 03/07/2022 11:30AM Acute Rounding Visit Height Blood Pressure 5 ft 6 in 104/53 mm[Hg] 03/03/2022 07:29PM Admitting H&P Height Weight BMI Blood Pressure 5 ft 6 in 123.3 lbs 19.9 kg/m2 94/46 mm[Hg] 12/07/2020 12:58PM Discharge Summary Height Weight BMI Blood Pressure 5 ft 6 in 135.6 lbs 21.9 kg/m2 96/57 mm[Hg] 12/06/2020 11:45AM Acute Rounding Visit Height Blood Pressure 5 ft 6 in 110/81 mm[Hg] 11/29/2020 07:51AM Acute Rounding Visit Height Blood Pressure 5 ft 6 in 111/62 mm[Hg] 11/26/2020 08:22AM Acute Rounding Visit Height Blood Pressure 5 ft 6 in 101/57 mm[Hg] 11/22/2020 09:48AM Acute Rounding Visit Height Blood Pressure 5 ft 6 in 107/75 mm[Hg] 11/19/2020 01:44PM Acute Rounding Visit Height Blood Pressure 5 ft 6 in 117/72 mm[Hg] 11/17/2020 07:21AM Telemed Admitting H&P Height Blood Pressure 5 ft 6 in 99/86 mm[Hg] 11/15/2020 01:10PM Acute Rounding Visit Height Blood Pressure 5 ft 6 in 107/54 mm[Hg] 11/12/2020 07:49AM Initial Intake Note Height Weight BMI Blood Pressure 5 ft 6 in 144 lbs 23.2 kg/m2 119/50 mm[Hg]
--- OUTSIDE RECORDS SUMMARY | 2022-06-19 00:23 | XMS_ITS | Encounter Summary ---
:1935 Author Care Team Providers Name Role Phone Art Ortiz Primary Care Provider [phone] [place] - 4th Floor OTHER [phone] Reason for Visit Acute Rounding Visit Assessment and Plan 1. Acute dermatitis moisturize skin at least daily add hydrocortisone 1% cream bid prn 2. Chronic insomnia Remeron just started - continue 15 mg Add melatonin per pt. request - used 5 m g at home. Monitor sleep 3. Dry eyes c/o bilateral dry eyes will add natural tears ou bid, and bid p rn eye soaks in am to help with am crusting monitor for improvement 4. Fracture of superior pubic ramus Continue oxycodone taper - reduce to 2. 5 mg daily x 7 days, then stop. Stop prn oxycodone. Remains on sched. APAP, gabapentin 200 m g qhs, lidocaine patch daily Monitor pain control. F/U with ortho as planned. 5. Myelodysplastic syndrome (clinical) Followed closely by Heme/Onc. Transfuse prn, monitor labs weekly and p rn Continue with routine injections/tx. Hgb 7.6 - forwarded to Heme/Onc 6. Weight loss Family updated Increased Remeron to 15mg q HS Continue Boost/supplements - special makeup fx artist instructor a ctively involved in care, trying to cater to food/beverage preferences. Continue to monitor weight, intake To see dentist tomorrow to refit denture s Can consider megestrol acetate if increa se of Remeron not effective 7. Hypothyroidism TSH just back - 25. 08 [...] Pressure 5 ft 6 in 105/70 mm[Hg] Results Lab Results None recorded. Allergies Code Code System Name Reaction Severity Onset 901246 RxNorm Bactrim ? ? ? 6283931 RxNorm Dabigatran Etexilate ? ? ? 590567 RxNorm Dexlansoprazole ? ? ? 002210 RxNorm Dilaudid ? ? ? 3640 RxNorm Doxycycline ? ? ? 6211 RxNorm Lactose ? ? ? 395830 RxNorm Moxifloxacin ? ? ? 05411 RxNorm Vancomycin ? ? ? Notes: egg [...] you have a medical power of Y document review attorney? What was the date of your [...] do you live? Apartment Notes: ILF at [facility] What is your relationship status? Functional Status Unknown. Past Encounters 05/25/2022 Acute Dermatitis; Chronic Insomnia; Dry Eyes; Fracture of Superior Pubic Ramus; Myelodysplastic Syndrome (Clinical); Weight Loss; Hypothyroidism Lucila Engle PCA: [address], [place] [address], Ph. 05/23/2022 Weight Loss; Myelodysplastic Syndrome (C linical); Hypothyroidism Lucila Engle PCA: [address], [place] [address], Ph. 05/22/2022 Dry Eyes GUILLERMO Chiu: [address], [place] [address], Ph. 05/19/2022 Weight Loss; Atrial Fibrillation; Chroni c Hyponatremia; Chronic Obstructive Lung Disease; Chronic Tremor; Hypothyroidism; Myelodysplastic Syndrome (Clinical); Anemia; Gastroesophageal Reflux Disease wit hout Esophagitis; Orthostatic Hypotensio n; Parkinson's Disease; Restless Legs GUILLERMO Chiu: [address], [place] [address], Ph. 05/15/2022 Chronic Hyponatremia; Anemia; Acute Cons tipation; Orthostatic Hypotension; Pain of Right Shoulder Joint GUILLERMO Chiu: [address], [place] [address], Ph. 05/08/2022 Anemia GUILLERMO Chiu: [address], [place] [address], Ph. 05/04/2022 Sore Throat Symptom; Weight Loss; Chroni c Hyponatremia; Anemia; Atrial Fibrillation; Chronic Obstructive Lung Disease; Gastroesophageal Reflux Disease without Esophagitis; Myelodysplastic Syndrome (Clin ical); Hypothyroidism; Parkinson's Disea se; Restless Legs; Orthostatic Hypotension; Chronic Pain; Nausea; Chronic Constipation; Subdural Hematoma; Fracture of Superior Pubic Ramus; Fracture of Inferior Pubic Ramus; Chronic Tremor Lucila Engle PCA: [address] [place] [address], Ph. 05/01/2022 Weight Loss; Chronic Hyponatremia; Anemi a Alejandrina Siegel, CATTLE CARE WORKER: [address] [place] [address], Ph. 04/28/2022 Atrial Fibrillation; Chronic Obstructive Lung Disease; Gastroesophageal Reflux Disease without Esophagitis; Myelodysplastic Syndrome (Clinical); Hypothyroidism; Parkinson's Disease; Restless Legs; Orthostatic Hypotension; Chronic Pain Maddy Smith MD: [address] [place] [address], Ph. 04/25/2022 Myelodysplastic Syndrome (Clinical); Par kinson's Disease; Chronic Obstructive Lung Disease; Acute Low Back Pain; Orthostatic Hypotension; Nausea; Anemia; Chronic Hyponatremia; Atrial Fibrillation; Chron ic Constipation; Subdural Hematoma; Frac ture of Superior Pubic Ramus; Fracture of Inferior Pubic Ramus; Hypothyroidism; Chronic Tremor Lucila Engle PCA: [address] [place] [address], Ph. History of Present Illness Note: <div>Ximena is seen today for an acute visit. </div><div>
</div>&l t;div>Asked to check her leg due to red spots .</div><div>Pt. alsocomplaining of irritated eyes. Eyes </div><div>Not sleeping well, used melatonin at home, asking if she can use here. </div><div>Pain mgmt. and oxycodone discussed, agreeable tocontinue taper off of this med. </div><div>
</div><div>Due to weight loss, remeron started, now on 15 mg.</div><div>Hgb 7.6 this week - requested nsg. fax this to Oncology - has appt. to see Heme/Onc tomorrow.</div><div>TSH level 25.08 - levothyroxine dose increased to 100 mcg daily. </div><div>
</div><div>
</div>Review of Systems: ROS as noted in the [...] atrauma tic Eyes: Lids and Conjunctivae: non-i njected; some pink discoloration below eyes. EOM: EOMI. Sclerae: no n-icteric ENMT: Hearing: hearing decreased. Oropharynx: moist mucous membranes Neck: Neck: FROM Cardiovascular: Heart Auscultation: irregula rly irregular Abdomen: Bowel Sounds: soft, non-dist ended, no tenderness Musculoskeletal:: Extremities: no cyanosis, no edema. Joints, Bones, and Muscles normal movement of all extre mities Neurologic: Cranial Nerves: grossly inta ct Skin: Inspection and palpation: no rash, no ulcer; few small, diffusely spread, scabbed, pink lesion s on bilat. thighs, R>L. # noted left arm Notes: <div>Labs </div><div>03/02-WB C-2.4, H/H-8.3/24.5, plts-123, BUN/Cr-22/0.84, GFR>60, N a+132, K+4.8, glu-73</div><div>03/09/22 wbc 3, hgb 7.5, hct 23.7, pl t 141, na 139, k 4.2, bun 24, maritime officer 0.95, sabi 7.4</div><div>03/20/22 na 139, k 3.5, bun 28, maritime officer 0.88, sabi 7.5</div><div>03/27/22 wbc 3.3 , hgb 7.1, hct 21.9, plt 149, na 134, k 4, bun 13, maritime officer 0.78, sabi 8</ div><div>04/03/22 wbc 4, hgb 7.3, hct 22.3, plt 207, na 132, k 4.5 , bun 17, maritime officer 0.82, sabi 8</div><div>04/10/22-WBC-3.4, H/H-6.6/20.9, plts-177, BUN/Cr-16/0.97, GFR-55, Na+1 31, K+4.5, glu-61</div><div>04/17: wbc 3.1, hgb 7.3, plt 152. Na 13 0, K 3.8, Bun13, Cr. 0.74, glu 65. </div><div>04/25: wbc 2.7, hgb 6.5, plt 141. </div><div>05/01/22 wbc 3.8, hgb 7.4, hct 22.9, plt 168, na 132, k 4.4, bun 17, maritime officer 0.69, sabi 7.7</div><div>05/08/22 wb c 4.1, hgb 6.8, hct 21.4, plt 149, na 133, k 4.3, bun 20, maritime officer 0.91 , sabi 7.7</div><div>05/15/22: wbc 4.5, h&h 9.3/29.4, mchc 31.6 , rdw 21.4, plt 195, gluc 65, sodium 134, k+ 4.3, chloride 103, c o2 25, gap 6, bun 18, creat 0.88, eGFR >60, calcium 8.3</div><div>: hgb 7.6, TSH 25.08</div>
--- OUTSIDE RECORDS SUMMARY | 2022-06-19 00:23 | XMS_ITS | Encounter Summary ---
:1935 Author Care Team Providers Name Role Phone Art Ortiz Primary Care Provider [phone] [place] Anglin - 4th Floor OTHER [phone] Reason for Visit Acute Rounding Visit Assessment and Plan Assessment Note AGREE WITH WILDLIFE AND GAME PROTECTOR STUDENT 1. Atrial fibrillation Assessment: - Rate controlled on exam. Denies CP or palpitations. Plan: - Continue amiodarone 400 mg qd - Monitor rate and rhythm 2. Chronic obstructive lung disease Assessment: - No dyspnea today. LS diminished w no c rackles, wheezing, or rhonchi. - SpO2 94% on RA today. Plan: - Continue singulair 10 mg qd - Continue anoro ellipta 62.5-25 mcg 1 p uff qd - Followed by Dr. Perez - Monitor 3. Eruption Assessment: - Few scattered areas of erythema and ex coriation to right arm. Nothing visible on legs. Single narrow superficial fissure in right axilla. - Excoriation mild and likely secondary to scratching. - Multiple residents have had similar ra shes. Suspect change in detergent facility uses, but sample worker denies any changes. Plan: - Calamine lotion TID to affected areas. - Counseled pt to avoid scratching. 4. Myelodysplastic syndrome (clinical) Assessment: - Receiving regular transfusions. Follow s with heme/onc. Hgb 7.8, hct 25.5 on 06/12. Hgb was 8.2 on 06/07/22. - Baseline significant anemia. - Worsening. - Asymptomatic today. Plan: - Check next week. - Anticipate need for transfusion. - Monitor CBC - Transfusions as needed 5. Weight loss Assessment: - Recent weight gain. Up to 116.5 on 05/20 from 115 on 05/18. - No weights recorded since 05/20. - Taken off Remeron for hyponatremia. Plan: - Start weekly weights. - Seek alternative appetite stimulant if weight falls again. - Monitor weight - Helminthologist consult as needed - Will ensure pt uses bottom dentures wh en they finish being repaired 6. Hypocalcemia Assessment: - Calcium 8.0 on today's labs. Was 9.0 o n 06/07. - Mild. - Potential causes: hypoalbuminemia, aci d base disturbance, hormone dysregulation. - Albumin was low (2.4) on 06/07 but sabi cium was normal. - Gap today is 8 (normal). - No PTH in chart. - No tetany, seizures, mental status franc nges, or hypotension. Plan: - Continue to monitor. If persistently l ow, will order PTH, ionized calcium. Discussion Note: None recorded.Patient educational handouts: No [...] Code Code System Name Reaction Severity Onset 172992 RxNorm Bactrim ? ? ? 3947998 RxNorm Dabigatran Etexilate ? ? ? 308280 RxNorm Dexlansoprazole ? ? ? 212714 RxNorm Dilaudid ? ? ? 3640 RxNorm Doxycycline ? ? ? 6211 RxNorm Lactose ? ? ? 743203 RxNorm Moxifloxacin ? ? ? 56508 RxNorm Vancomycin ? ? ? Notes: egg [...] you have a medical power of Y corporate attorney? What was the date of your [...] do you live? Apartment Notes: ILF at [facility] What is your relationship status? Functional Status Unknown. Past Encounters 06/12/2022 Atrial Fibrillation; Chronic Obstructive Lung Disease; Eruption; Myelodysplastic Syndrome (Clinical); Weight Loss; Hypocalcemia LEEANN ChiuP: [address] [place] [address], Ph. 06/08/2022 Chronic Hyponatremia; Hyperkalemia; Anem ia; Hypothyroidism; Parkinson's Disease; Weight Loss; Orthostatic Hypotension; Atrial Fibrillation; Chronic Constipation; Chronic Obstructive Lung Disease; Gastro esophageal Reflux Disease without Esopha gitis; Electrolyte Imbalance Lucila Engle WILDLIFE AND GAME PROTECTOR: [address] [place] [address], Ph. 05/25/2022 Acute Dermatitis; Chronic Insomnia; Dry Eyes; Fracture of Superior Pubic Ramus; Myelodysplastic Syndrome (Clinical); Weight Loss; Hypothyroidism Lucila Engle WILDLIFE AND GAME PROTECTOR: [address] [place] [address], Ph. 05/23/2022 Weight Loss; Myelodysplastic Syndrome (C linical); Hypothyroidism Lucila Engle WILDLIFE AND GAME PROTECTOR: [address] [place] [address], Ph. 05/22/2022 Dry Eyes GUILLERMO Chiu: [address] [place] [address], Ph. 05/19/2022 Weight Loss; Atrial Fibrillation; Chroni c Hyponatremia; Chronic Obstructive Lung Disease; Chronic Tremor; Hypothyroidism; Myelodysplastic Syndrome (Clinical); Anemia; Gastroesophageal Reflux Disease wit hout Esophagitis; Orthostatic Hypotensio n; Parkinson's Disease; Restless Legs GUILLERMO Chiu: [address] [place] [address], Ph. 05/15/2022 Chronic Hyponatremia; Anemia; Acute Cons tipation; Orthostatic Hypotension; Pain of Right Shoulder Joint GUILLERMO Chiu: [address] [place] [address], Ph. History of Present Illness Note: <div>Pt seen for acute rounding visit. Pt is at baseline except for a pruritic, non-painful rash which recently broke out on her legs, axillae, and arms. She has no other complaints. She has been receiving PRN blood transfusions at [facility].</div><div>
</div><div>Denies SOB, chest discomfort, nausea, vomiting, abdominal pain, dizziness.</div>Review of Systems: ROS as noted in the [...] 168, na 132, k 4.4, bun 17, digital marketing project manager 0.69, sabi 7.7</d iv><div>05/08/22 wbc 4.1, hgb 6.8, hct 21.4, plt 149, na 133, k 4.3 , bun 20, digital marketing project manager 0.91, saib 7.7</div><div>05/15/22: wbc 4 .5, h&h 9.3/29.4, mchc [...] 1.11, glu 81. L FTs WNR. </div><div>06/12/22: WBC 3.9, RBC 2.6, hgb 7.8, hct 2 5.5, MCV 97.7, MCHC 30.6, plt 178, glucose 64, sodium 138, pota ssium 4.2, chloride 109, BUN 27, creat 0.99, eGFR 56, calcium 8.0</ div>
--- OUTSIDE RECORDS SUMMARY | 2022-06-19 00:23 | XMS_ITS | Encounter Summary ---
:1935 Author Care Team Providers Name Role Phone Art Ortiz Primary Care Provider [phone] [place] Anglin - 4th Floor OTHER [phone] Reason for Visit Acute Rounding Visit Assessment and Plan 1. 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 Chronic hyponatremia 1500 cc fluid restrict monitor labs sodium stable 3. Anemia follows with Dr Cantu oncdanya through [facility] anemia injections through there q 3 week s transfusions as needed monitor labs and fax to oncology Discussion Note: None recorded.Patient educational handouts: No information available. Plan of Care Reminders Provider Appointments None recorded. ? ? Lab None recorded. ? ? Referral None recorded. ? ? Procedures None recorded. ? ? Surgeries None recorded. ? ? Imaging None recorded. ? ? Medications No Medications Reported Notes: med list reviewed, see MAR for complete list Medications Administered None recorded. Vitals Height Weight BMI Blood Pressure 5 ft 6 in 120.5 lbs 19.4 kg/m2 124/69 mm[Hg] Results Lab Results None recorded. Allergies Code Code System Name Reaction Severity Onset 907091 RxNorm Bactrim ? ? ? 9014701 RxNorm Dabigatran Etexilate ? ? ? 438183 RxNorm Dexlansoprazole ? ? ? 018936 RxNorm Dilaudid ? ? ? 3640 RxNorm Doxycycline ? ? ? 6211 RxNorm Lactose ? ? ? 768282 RxNorm Moxifloxacin ? ? ? 15236 RxNorm Vancomycin ? ? ? Notes: egg [...] you have a medical power of Y rigging man? What was the date of your most [...] do you live? Apartment Notes: ILF at [facility] What is your relationship status? Functional Status Unknown. Past Encounters 05/01/2022 Weight Loss; Chronic Hyponatremia; Anemi a Alejandrina Siegel, OIM CONSULTANT: [address], [place] [address], Ph. 04/28/2022 Atrial Fibrillation; Chronic Obstructive Lung Disease; Gastroesophageal Reflux Disease without Esophagitis; Myelodysplastic Syndrome (Clinical); Hypothyroidism; Parkinson's Disease; Restless Legs; Orthostatic Hypotension; Chronic Pain Maddy Smith MD: [address] [place] [address], Ph. 04/25/2022 Myelodysplastic Syndrome (Clinical); Par kinson's Disease; Chronic Obstructive Lung Disease; Acute Low Back Pain; Orthostatic Hypotension; Nausea; Anemia; Chronic Hyponatremia; Atrial Fibrillation; Chron ic Constipation; Subdural Hematoma; Frac ture of Superior Pubic Ramus; Fracture of Inferior Pubic Ramus; Hypothyroidism; Chronic Tremor Lucila Engle SENIOR SERVICE TECHNICIAN: [address] [place] [address], Ph. 04/20/2022 Myelodysplastic Syndrome (Clinical); Par kinson's Disease; Acute Low Back Pain; Nausea; Anemia; Chronic Constipation; Subdural Hematoma; Fracture of Superior Pubic Ramus; Fracture of Inferior Pubic Ramus ; Atrial Fibrillation; Hypothyroidism; O rthostatic Hypotension; Chronic Hyponatremia; Chronic Tremor Lucila Engle SENIOR SERVICE TECHNICIAN: [address] [place] [address], Ph. 04/18/2022 Myelodysplastic Syndrome (Clinical); Adam sea; Anemia; Chronic Constipation; Parkinson's Disease; Subdural Hematoma; Fracture of Superior Pubic Ramus; Fracture of Inferior Pubic Ramus; Atrial Fibrillation ; Hypothyroidism; Orthostatic Hypotensio n; Chronic Hyponatremia Lucila Engle SENIOR SERVICE TECHNICIAN: [address] [place] [address], Ph. 04/10/2022 Myelodysplastic Syndrome (Clinical); Ane toby; Chronic Constipation; Parkinson's Disease; Subdural Hematoma; Fracture of Superior Pubic Ramus; Fracture of Inferior Pubic Ramus; Atrial Fibrillation; Hypoth yroidism; Orthostatic Hypotension; Chron ic Hyponatremia Marija Morrow MD: [address] [place] [address], Ph. 04/07/2022 Anemia; Parkinson's Disease GUILLERMO Chiu: [address] [place] [address], Ph. 04/06/2022 Anemia; Acute Constipation; Fracture of Superior Pubic Ramus; Atrial Fibrillation; Hypothyroidism; Orthostatic Hypotension; Myelodysplastic Syndrome (Clinical); Chronic Hyponatremia Lucila Engle, SENIOR SERVICE TECHNICIAN: [address] [place], [place] [address], Ph. 04/03/2022 Anemia; Acute Constipation Alejandrina SiegelLEEANNP: [address] [place], [place] [address], Ph. 03/31/2022 Acute Constipation Alejandrina Siegel, OIM CONSULTANT: [address] [place], [place] [address], Ph. History of Present Illness Note: <div>A 87 year old female being seen for a acute rounding visit. Patient is noted to be doingwell but continues to lose weight. Psych saw her and requested remeron. She agreed to this. She was due to go out for a oncology appt but unable to get a hold of daughter. She goes every three weeks for injections. She does remain anemic but not symptomatic. Will let oncology know. </div> Review of Systems ? Notes: <div>All others [...] Neck: FROM Lungs: Auscultation: breath sounds normal, no wheezing, [...] 141, na 139, k 4.2, bun 24, security site supervisor 0.95, sabi 7.4</div><div>03/20/22 na 139, k 3.5, bun 28, security site supervisor 0.88, sabi 7.5</div><div>03/27/22 wbc 3.3 , hgb 7.1, hct 21.9, plt 149, na 134, k 4, bun 13, security site supervisor 0.78, sabi 8</ div><div>04/03/22 wbc 4, hgb 7.3, hct 22.3, plt 207, na 132, k 4.5 , bun 17, security site supervisor 0.82, sabi 8</div><div>04/10/22-WBC-3.4, H/H-6.6/20.9, plts-177, BUN/Cr-16/0.97, GFR-55, Na+1 31, K+4.5, glu-61</div><div>04/17: wbc 3.1, hgb 7.3, plt 152. Na 13 0, K 3.8, Bun13, Cr. 0.74, glu 65. </div><div>04/25: wbc 2.7, hgb 6.5, plt 141. </div><div>05/01/22 wbc 3.8, hgb 7.4, hct 22.9, plt 168, na 132, k 4.4, bun 17, security site supervisor 0.69, sabi 7.7</div>
--- OUTSIDE RECORDS SUMMARY | 2022-06-19 00:23 | XMS_ITS | Encounter Summary ---
:1935 Author Care Team Providers Name Role Phone Art Ortiz Primary Care Provider [phone] [place] Anglin - 4th Floor OTHER [phone] Reason for Visit Acute Rounding Visit Assessment and Plan 1. Dry eyes c/o bilateral dry eyes will add natural tears prn monitor for improvement or need to bains e to something stronger Discussion Note: None recorded.Patient educational handouts: No [...] in 116.5 lbs 18.8 kg/m2 90/55 mm[Hg] Results Lab Results None recorded. Allergies Code Code System Name Reaction Severity Onset 454783 RxNorm Bactrim ? ? ? 9791921 RxNorm Dabigatran Etexilate ? ? ? 272625 RxNorm Dexlansoprazole ? ? ? 299010 RxNorm Dilaudid ? ? ? 3640 RxNorm Doxycycline ? ? ? 6211 RxNorm Lactose ? ? ? 394146 RxNorm Moxifloxacin ? ? ? 25718 RxNorm Vancomycin ? ? ? Notes: egg [...] you have a medical power of Y managing attorney? What was the date of your [...] do you live? Apartment Notes: ILF at [facility] What is your relationship status? Functional Status Unknown. Past Encounters 05/22/2022 Dry Eyes GUILLERMO Chiu: [address], [place] [address], Ph. 05/19/2022 Weight Loss; Atrial Fibrillation; Chroni c Hyponatremia; Chronic Obstructive Lung Disease; Chronic Tremor; Hypothyroidism; Myelodysplastic Syndrome (Clinical); Anemia; Gastroesophageal Reflux Disease wit hout Esophagitis; Orthostatic Hypotensio n; Parkinson's Disease; Restless Legs GUILLERMO Chiu: [address], [place] [address], Ph. 05/15/2022 Chronic Hyponatremia; Anemia; Acute Cons tipation; Orthostatic Hypotension; Pain of Right Shoulder Joint GUILLERMO Chiu: [address] [place], [place] [address], Ph. 05/08/2022 Anemia GUILLERMO Chiu: [address] [place], [place] [address], Ph. 05/04/2022 Sore Throat Symptom; Weight Loss; Chroni c Hyponatremia; Anemia; Atrial Fibrillation; Chronic Obstructive Lung Disease; Gastroesophageal Reflux Disease without Esophagitis; Myelodysplastic Syndrome (Clin ical); Hypothyroidism; Parkinson's Disea se; Restless Legs; Orthostatic Hypotension; Chronic Pain; Nausea; Chronic Constipation; Subdural Hematoma; Fracture of Superior Pubic Ramus; Fracture of Inferior Pubic Ramus; Chronic Tremor Lucila Engle NP: [address] [place] [address], Ph. 05/01/2022 Weight Loss; Chronic Hyponatremia; Anemi a GUILLERMO Chiu: [address] [place] [address], Ph. 04/28/2022 Atrial Fibrillation; Chronic Obstructive Lung Disease; Gastroesophageal Reflux Disease without Esophagitis; Myelodysplastic Syndrome (Clinical); Hypothyroidism; Parkinson's Disease; Restless Legs; Orthostatic Hypotension; Chronic Pain Maddy Smith MD: [address] [place] [address], Ph. 04/25/2022 Myelodysplastic Syndrome (Clinical); Par kinson's Disease; Chronic Obstructive Lung Disease; Acute Low Back Pain; Orthostatic Hypotension; Nausea; Anemia; Chronic Hyponatremia; Atrial Fibrillation; Chron ic Constipation; Subdural Hematoma; Frac ture of Superior Pubic Ramus; Fracture of Inferior Pubic Ramus; Hypothyroidism; Chronic Tremor Lucila Engle SOFTWARE TEST MANAGER: [address] [place] [address], Ph. History of Present Illness Note: <div>A 87 year old female being seen for a acute rounding visit. Patient is noted to be complaining of dry eyes and will order some natural tears prn. Continue to monitor. </div> Review of Systems ? Notes: <div>All [...] mucous membranes Neck: Neck: FROM Lungs: Auscultation: no wheezing, n o rales/crackles, no rhonchi, decreased breath sounds Cardiovascular: Heart Auscultation: irregula rly irregular Abdomen: [...] 141, na 139, k 4.2, bun 24, set up mechanic stamping machines 0.95, sabi 7.4</div><div>03/20/22 na 139, k 3.5, bun 28, set up mechanic stamping machines 0.88, sabi 7.5</div><div>03/27/22 wbc 3.3 , hgb 7.1, hct 21.9, plt 149, na 134, k 4, bun 13, set up mechanic stamping machines 0.78, sabi 8</ div><div>04/03/22 wbc 4, hgb 7.3, hct 22.3, plt 207, na 132, k 4.5 , bun 17, set up mechanic stamping machines 0.82, sabi 8</div><div>04/10/22-WBC-3.4, H/H-6.6/20.9, plts-177, BUN/Cr-16/0.97, GFR-55, Na+1 31, K+4.5, glu-61</div><div>04/17: wbc 3.1, hgb 7.3, plt 152. Na 13 0, K 3.8, Bun13, Cr. 0.74, glu 65. </div><div>04/25: wbc 2.7, hgb 6.5, plt 141. </div><div>05/01/22 wbc 3.8, hgb 7.4, hct 22.9, plt 168, na 132, k 4.4, bun 17, set up mechanic stamping machines 0.69, sabi 7.7</div><div>05/08/22 wb c 4.1, hgb 6.8, hct 21.4, plt 149, na 133, k 4.3, bun 20, set up mechanic stamping machines 0.91 , sabi 7.7</div><div>05/15/22: wbc 4.5, h&h 9.3/29.4, mchc 31.6 , rdw 21.4, plt 195, gluc 65, sodium 134, k+ 4.3, chloride 103, c o2 25, gap 6, bun 18, creat 0.88, eGFR >60, calcium 8.3</div>
--- OUTSIDE RECORDS SUMMARY | 2022-06-19 00:23 | XMS_ITS | Encounter Summary ---
:1935 Author Care Team Providers Name Role Phone Art Ortiz Primary Care Provider [phone] [place] Anglin - 4th Floor OTHER [phone] Reason for Visit Routine Rounding Assessment and Plan Assessment Note AGREE WITH CORN SHELLER STUDENT 1. Weight loss Assessment: - Continued weight loss. Nutrition saw h er yesterday and she was counseled again today about the importance of adequate nutrition. Unable to tolerate any supplement but Boost Breeze. Plan: - Will increase Remeron from 7.5mg daily at bedtime to 15mg. - Monitor weight - Research Coordinator consult as needed - Will ensure pt uses bottom dentures wh en they finish being repaired - Consider megestrol acetate if increase of Remeron not effective 2. Atrial fibrillation Assessment: - Rate controlled on exam. Denies CP or palpitations. Plan: - Continue amiodarone 200 mg bid - Monitor rate and rhythm 3. Chronic hyponatremia Assessment: - Sodium 134 on 05/15/22. Sodium 133 on . Pt unaware of any fluid restriction. Pt has not been following but reports that she does not drink a lot. Sodium stable. Plan: - 1500 cc fluid restriction - Monitor labs 4. Chronic obstructive lung disease Assessment: - No dyspnea today. LS diminished w no c rackles, wheezing, or rhonchi. Plan: - Continue singulair 10 mg qd -anoro ellipta 62.5-25 mcg 1 puff qd - Followed by Dr. Perez - Monitor 5. Chronic tremor Assessment: - Present and unchanged from previous ex amination. Plan: - Continue primidone 100 mg q hs - Monitor 6. Hypothyroidism Assessment: - No s/s of hypothyroidism. Plan: - Continue levothyroxine 75 mcg qd - Monitor TSH 7. Myelodysplastic syndrome (clinical) Assessment: - Receiving regular transfusions. Follow s with heme/onc. Last H&H was higher than her average. Plan: - Monitor CBC - Transfusions as needed 8. Anemia follows with Dr Alondra bello/onc through [facility] anemia injections through there q 3 week s transfusions as needed monitor labs and fax to oncology 9. Gastroesophageal reflux disease with out esophagitis omeprazole 20 mg qd monitor for symptoms 10. Orthostatic hypotension No dizziness, presyncope, or syncope. midodrine 2.5 mg bid monitor bps 11. Parkinson's disease primidone 100 mg q hs gabapentin 200 mg q hs requip 1.5 mg tid monitor neuro Tiffanie Cheng at [address] [place], [place] [phone] 12. Restless legs ropinirole 1.5 mg tid monitor Discussion Note: None recorded.Patient educational handouts: [...] in 115 lbs 18.6 kg/m2 92/61 mm[Hg] Results Lab Results None recorded. Allergies Code Code System Name Reaction Severity Onset 986941 RxNorm Bactrim ? ? ? 0575995 RxNorm Dabigatran Etexilate ? ? ? 882108 RxNorm Dexlansoprazole ? ? ? 568767 RxNorm Dilaudid ? ? ? 3640 RxNorm Doxycycline ? ? ? 6211 RxNorm Lactose ? ? ? 160472 RxNorm Moxifloxacin ? ? ? 58382 RxNorm Vancomycin ? ? ? Notes: egg [...] you have a medical power of Y emulsion operator? What was the date of your most [...] do you live? Apartment Notes: ILF at [facility] What is your relationship status? Functional Status Unknown. Past Encounters 05/19/2022 Weight Loss; Atrial Fibrillation; Chroni c Hyponatremia; Chronic Obstructive Lung Disease; Chronic Tremor; Hypothyroidism; Myelodysplastic Syndrome (Clinical); Anemia; Gastroesophageal Reflux Disease wit hout Esophagitis; Orthostatic Hypotensio n; Parkinson's Disease; Restless Legs GUILLERMO Chiu: [address] [place] [address], Ph. 05/15/2022 Chronic Hyponatremia; Anemia; Acute Cons tipation; Orthostatic Hypotension; Pain of Right Shoulder Joint GUILLERMO Chiu: [address] [place] [address], Ph. 05/08/2022 Anemia GUILLERMO Chiu: [address] [place] [address], Ph. 05/04/2022 Sore Throat Symptom; Weight Loss; Chroni c Hyponatremia; Anemia; Atrial Fibrillation; Chronic Obstructive Lung Disease; Gastroesophageal Reflux Disease without Esophagitis; Myelodysplastic Syndrome (Clin ical); Hypothyroidism; Parkinson's Disea se; Restless Legs; Orthostatic Hypotension; Chronic Pain; Nausea; Chronic Constipation; Subdural Hematoma; Fracture of Superior Pubic Ramus; Fracture of Inferior Pubic Ramus; Chronic Tremor Luclia Engle CORN SHELLER: [address] [place] [address], Ph. 05/01/2022 Weight Loss; Chronic Hyponatremia; Anemi a LEEANN ChiuP: [address] [facility] [place] [address], Ph. 04/28/2022 Atrial Fibrillation; Chronic Obstructive Lung Disease; Gastroesophageal Reflux Disease without Esophagitis; Myelodysplastic Syndrome (Clinical); Hypothyroidism; Parkinson's Disease; Restless Legs; Orthostatic Hypotension; Chronic Pain Maddy Smith MD: [address] [facility] [place] [address], Ph. 04/25/2022 Myelodysplastic Syndrome (Clinical); Par kinson's Disease; Chronic Obstructive Lung Disease; Acute Low Back Pain; Orthostatic Hypotension; Nausea; Anemia; Chronic Hyponatremia; Atrial Fibrillation; Chron ic Constipation; Subdural Hematoma; Frac ture of Superior Pubic Ramus; Fracture of Inferior Pubic Ramus; Hypothyroidism; Chronic Tremor Lucila Engle CORN SHELLER: [address] [facility] [place] [address], Ph. 04/20/2022 Myelodysplastic Syndrome (Clinical); Par kinson's Disease; Acute Low Back Pain; Nausea; Anemia; Chronic Constipation; Subdural Hematoma; Fracture of Superior Pubic Ramus; Fracture of Inferior Pubic Ramus ; Atrial Fibrillation; Hypothyroidism; O rthostatic Hypotension; Chronic Hyponatremia; Chronic Tremor Lucila Engle CORN SHELLER: [address] [place] [address], Ph. 04/18/2022 Myelodysplastic Syndrome (Clinical); Adam sea; Anemia; Chronic Constipation; Parkinson's Disease; Subdural Hematoma; Fracture of Superior Pubic Ramus; Fracture of Inferior Pubic Ramus; Atrial Fibrillation ; Hypothyroidism; Orthostatic Hypotensio n; Chronic Hyponatremia Lucila Engle CORN SHELLER: [address] [place] [address], Ph. History of Present Illness Note: <div>Pt seen for routine rounding visit (90 day). Pt has been losing weight, presumably secondary to cancer and decreased oral intake. She has lost 8.3 pounds since 03/03/22. She states her appetite is poor and the food does not appeal to her. Complicating matters is the fact that her bottom dentures are currently being repaired, making it difficult to eat some solids. She is unable to drink Ensure due to here lactose intolerance. She does not like the thicker formulations. She is being supplemented with Boost Breeze (a juice supplement free of lactose). Boost Breeze, however, does not contain any fat and significantly less protein and calories than the same volume of Boost Very High Caloriedrink. According to staff, Ms. Cheng has tried multiple supplements and is only able to tolerate Boost Breeze. </div><div> </div><div>
</div><div>When asked about her care goals, Ms. Cheng is vague. When asked explicitly about hospice, she stated,?I don?t want hospice?I?m not ready for that.? </div><div> </div><div>
</div><div>Pt denies SOB, CP, nausea, vomiting, ordiarrhea. </div>Review of Systems: ROS as noted in [...] 141, na 139, k 4.2, bun 24, dicer operator 0.95, sabi 7.4</div><div>03/20/22 na 139, k 3.5, bun 28, dicer operator 0.88, sabi 7.5</div><div>03/27/22 wbc 3.3 , hgb 7.1, hct 21.9, plt 149, na 134, k 4, bun 13, dicer operator 0.78, sabi 8</ div><div>04/03/22 wbc 4, hgb 7.3, hct 22.3, plt 207, na 132, k 4.5 , bun 17, dicer operator 0.82, sabi 8</div><div>04/10/22-WBC-3.4, H/H-6.6/20.9, plts-177, BUN/Cr-16/0.97, GFR-55, Na+1 31, K+4.5, glu-61</div><div>04/17: wbc 3.1, hgb 7.3, plt 152. Na 13 0, K 3.8, Bun13, Cr. 0.74, glu 65. </div><div>04/25: wbc 2.7, hgb 6.5, plt 141. </div><div>05/01/22 wbc 3.8, hgb 7.4, hct 22.9, plt 168, na 132, k 4.4, bun 17, dicer operator 0.69, sabi 7.7</div><div>05/08/22 wb c 4.1, hgb 6.8, hct 21.4, plt 149, na 133, k 4.3, bun 20, dicer operator 0.91 , sabi 7.7</div><div>05/15/22: wbc 4.5, h&h 9.3/29.4, mchc 31.6 , rdw 21.4, plt 195, gluc 65, sodium 134, k+ 4.3, chloride 103, c o2 25, gap 6, bun 18, creat 0.88, eGFR >60, calcium 8.3</div>
--- OUTSIDE RECORDS SUMMARY | 2022-06-19 00:23 | XMS_ITS | Encounter Summary ---
:1935 Author Care Team Providers Name Role Phone Art Ortiz Primary Care Provider [phone] [place] - 4th Floor OTHER [phone] Reason for Visit Acute Rounding Visit Assessment and Plan Assessment Note 03/02: wbc 2.4, hgb 8.3, hct 24.5, na 13 2, k 4.8, bun 22, creat 0.84, plt 123 1. Sore throat symptom swab for covid rinse mouth after anoro use daily salt water gargles prn monitor 2. 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 Chronic hyponatremia Continue 1500 cc fluid restrict monitor labs sodium 132. 4. Anemia follows with Dr Alondra parks through [facility] luspatercept treatments q 3 weeks - resc heduled due to transportation issues transfusions as needed monitor labs and fax to oncology weekly 5. Atrial fibrillation continue amiodarone 200 mg daily consider restarting AC - currently on ho ld due to SDH. Pt. unsure if she wants to restart. Monitor VS, CP status for change 6. Chronic obstructive lung disease Continue: Anoro Ellipta 62.5-25 mcg/INH: one inhal ation daily - c/o sore throat - enc. to rinse mouth after use. montelukast 10 mg daily continue to monitor 7. Gastroesophageal reflux disease with out esophagitis continue omeprazole 20 mg daily will monitor 8. Myelodysplastic syndrome (clinical) as above fu hem/onc regular labs 9. Hypothyroidism levothyroxine 75 mcg daily will monitor 10. Parkinson's disease primidone 100 mg at hs ropinirole 1.5 mg tid Rytary ER 23.75-95: 2 capsules tid added monitor for effect neurology fu prn 11. Restless legs primidone 100 mg at hs gabapentin 200 mg at hs ropinirole 1.5 mg tid will monitor 12. Orthostatic hypotension midodrine 2.5 mg bid will monitor 13. Chronic pain APAP 975 mg q8h reduce sched. oxycodone to 2.5 mg bid, d /c qid - continue to taper off as able oxycodone 2.5 mg q12h prn Lidocaine patch daily to right hip and l ower back gabapentin 200 mg at hs will monitor 14. Nausea and gagging, reported to be a chronic i ssue. reducing oxycodone PRN zofran available, keep bowels moving , light diet and advance as salena. monitor GI consult prn. 15. Chronic constipation continue multiple laxatives Monitor bowels and adjust meds prn. 16. Subdural hematoma Stable. Neurosurg did not request f/u Monitor for neuro changes. Pros and cons of restarting AC discussed with Ximena, and she is unsure what she wants to do. Will most likely restart in near future 17. Fracture of superior pubic ramus Continue PT/OT as ordered Start to taper off oxycodone - reduce sc hed. dose to 2.5 mg bid, may continue prn order APAP 975 mg TID gabapentin 200 mg qhs lidocaine patch daily Monitor pain control. F/U with ortho as planned. 18. Fracture of inferior pubic ramus As above. Taper off oxycodone 19. Chronic tremor see above, trialing rytary per Neuro re cs. Discussion Note: None recorded.Patient educational handouts: No [...] Pressure 5 ft 6 in 100/58 mm[Hg] Results Lab Results None recorded. Allergies Code Code System Name Reaction Severity Onset 943887 RxNorm Bactrim ? ? ? 5253386 RxNorm Dabigatran Etexilate ? ? ? 036555 RxNorm Dexlansoprazole ? ? ? 843089 RxNorm Dilaudid ? ? ? 3640 RxNorm Doxycycline ? ? ? 6293 RxNorm Lactose ? ? ? 775907 RxNorm Moxifloxacin ? ? ? 55074 RxNorm Vancomycin ? ? ? Notes: egg [...] you have a medical power of Y ip attorney? What was the date of your [...] do you live? Apartment Notes: ILF at [facility] What is your relationship status? Functional Status Unknown. Past Encounters 05/04/2022 Sore Throat Symptom; Weight Loss; Chroni c Hyponatremia; Anemia; Atrial Fibrillation; Chronic Obstructive Lung Disease; Gastroesophageal Reflux Disease without Esophagitis; Myelodysplastic Syndrome (Clin ical); Hypothyroidism; Parkinson's Disea se; Restless Legs; Orthostatic Hypotension; Chronic Pain; Nausea; Chronic Constipation; Subdural Hematoma; Fracture of Superior Pubic Ramus; Fracture of Inferior Pubic Ramus; Chronic Tremor Lucila Engle ACCOUNTANT HELPER: [address] [facility] [place] [address], Ph. 05/01/2022 Weight Loss; Chronic Hyponatremia; Anemi a LEEANN ChiuP: [address] [place] [address], Ph. 04/28/2022 Atrial Fibrillation; Chronic Obstructive Lung Disease; Gastroesophageal Reflux Disease without Esophagitis; Myelodysplastic Syndrome (Clinical); Hypothyroidism; Parkinson's Disease; Restless Legs; Orthostatic Hypotension; Chronic Pain Maddy Smith MD: [address] [place] [address], Ph. 04/25/2022 Myelodysplastic Syndrome (Clinical); Par kinson's Disease; Chronic Obstructive Lung Disease; Acute Low Back Pain; Orthostatic Hypotension; Nausea; Anemia; Chronic Hyponatremia; Atrial Fibrillation; Chron ic Constipation; Subdural Hematoma; Frac ture of Superior Pubic Ramus; Fracture of Inferior Pubic Ramus; Hypothyroidism; Chronic Tremor Lucila Engle ACCOUNTANT HELPER: [address] [place] [address], Ph. 04/20/2022 Myelodysplastic Syndrome (Clinical); Par kinson's Disease; Acute Low Back Pain; Nausea; Anemia; Chronic Constipation; Subdural Hematoma; Fracture of Superior Pubic Ramus; Fracture of Inferior Pubic Ramus ; Atrial Fibrillation; Hypothyroidism; O rthostatic Hypotension; Chronic Hyponatremia; Chronic Tremor Lucila Engle ACCOUNTANT HELPER: [address] [facility] [place] [address], Ph. 04/18/2022 Myelodysplastic Syndrome (Clinical); Adam sea; Anemia; Chronic Constipation; Parkinson's Disease; Subdural Hematoma; Fracture of Superior Pubic Ramus; Fracture of Inferior Pubic Ramus; Atrial Fibrillation ; Hypothyroidism; Orthostatic Hypotensio n; Chronic Hyponatremia Lucila Engle ACCOUNTANT HELPER: [address] , [place] [address], Ph. 04/10/2022 Myelodysplastic Syndrome (Clinical); Ane toby; Chronic Constipation; Parkinson's Disease; Subdural Hematoma; Fracture of Superior Pubic Ramus; Fracture of Inferior Pubic Ramus; Atrial Fibrillation; Hypoth yroidism; Orthostatic Hypotension; Chron ic Hyponatremia Marija Morrow MD: [address] , [place] [address], Ph. 04/07/2022 Anemia; Parkinson's Disease LEEANN ChiuP: [address] , [place] [address], Ph. 04/06/2022 Anemia; Acute Constipation; Fracture of Superior Pubic Ramus; Atrial Fibrillation; Hypothyroidism; Orthostatic Hypotension; Myelodysplastic Syndrome (Clinical); Chronic Hyponatremia Lucila Engle ACCOUNTANT HELPER: [address] [place] [address], Ph. 04/03/2022 Anemia; Acute Constipation GUILLERMO Chiu: [address] , [place] [address], Ph. History of Present Illness Note: <div>Ximena is seen today for an acute visit. </div><div>
</div>&l t;div>Due to anemia (known MDS, followed by Hematology), CBCs are being followed weekly. She has been transfused twice for low H/H.</div><div>Most recent hgb this week is 7.4. </div><div>Followed by Dr. Cantu, to get luspatercept treatments, but have been missed due to transportation issues.</div><div>
</div><div>Due to constipation, laxatives increased. Moving bowels, still with some GI upset. Pain meds discussed (oxycodone), suggested perhaps this may be contributing to GI upset, agreeable to reducing dose to see if it helps. </div><div>
</div><div>Trialing rytary for tremors as per Neuro recs, no reportsof increased tremors.</div><div>
</div><div>Anoro added by pulmonary, no resp. issues. </div><div>
</div><div>Remeron recently added for mood and appetite. </div><div>
</div><div>She is complaining of a sore throat this am, has had for a few days. No cough, SOB, CP. No other cold sx. except for maybe a little ear ache right ear. </div><div>
</div><div>
</div& gt;<div>
</div><div>Upon exam, Ximena is dressed, OOB, NAD. Alert, pleasant, in good spirits. </div><div>
</div><div>
</div><div>
</div><div>Her PMH includes Afib, COPD, myelodysplastic syndrom with pancytopenia, GERD, hypothyroidism, Parkinson's, RLS, s/p bilateral TKR, s/p SDH in 01/2022 and 2019, and s/p right superior and inferior pubic ramus fxs. </div> Review of Systems ? Notes: <div>All [...] ENMT: Hearing: hearing decreased. Oropharynx: moist mucous membranes; no redness, exudate Neck: Neck: FROM; no adenopathy Lungs: Auscultation: breath sounds normal, no wheezing, no rales/crackles, no rhonchi Cardiovascular: Heart Auscultation: irregula rly irregular Abdomen: Bowel Sounds: soft, no guard ing, non-distended, no tenderness Musculoskeletal:: Extremities: no cyanosis, no edema. Joints, Bones, and Muscles normal movement of all extre mities Neurologic: Cranial Nerves: grossly inta ct Skin: Inspection and palpation: no rash, no ulcer Notes: <div>Labs </div><div>03/02-WB C-2.4, H/H-8.3/24.5, plts-123, BUN/Cr-22/0.84, GFR>60, N a+132, K+4.8, glu-73</div><div>03/09/22 wbc 3, hgb 7.5, hct 23.7, pl t 141, na 139, k 4.2, bun 24, dry mill worker 0.95, sabi 7.4</div><div>03/20/22 na 139, k 3.5, bun 28, dry mill worker 0.88, sabi 7.5</div><div>03/27/22 wbc 3.3 , hgb 7.1, hct 21.9, plt 149, na 134, k 4, bun 13, dry mill worker 0.78, sabi 8</ div><div>04/03/22 wbc 4, hgb 7.3, hct 22.3, plt 207, na 132, k 4.5 , bun 17, dry mill worker 0.82, sabi 8</div><div>04/10/22-WBC-3.4, H/H-6.6/20.9, plts-177, BUN/Cr-16/0.97, GFR-55, Na+1 31, K+4.5, glu-61</div><div>04/17: wbc 3.1, hgb 7.3, plt 152. Na 13 0, K 3.8, Bun13, Cr. 0.74, glu 65. </div><div>04/25: wbc 2.7, hgb 6.5, plt 141. </div><div>05/01/22 wbc 3.8, hgb 7.4, hct 22.9, plt 168, na 132, k 4.4, bun 17, dry mill worker 0.69, sabi 7.7</div>
--- OUTSIDE RECORDS SUMMARY | 2022-06-19 00:23 | XMS_ITS | Encounter Summary ---
:1935 Author Care Team Providers Name Role Phone Art Ortiz Primary Care Provider [phone] [place] - 4th Floor OTHER [phone] Reason for Visit Acute Rounding Visit Assessment and Plan 1. Anemia follows with Dr Alondra parks through [facility] anemia injections through there q 3 week s transfusions as needed-will need a trans fusion will have nursing call them to make awar e of hgb of 6.8 monitor labs and fax to oncology Discussion [...] in 121.9 lbs 19.7 kg/m2 103/57 mm[Hg] Results Lab Results None recorded. Allergies Code Code System Name Reaction Severity Onset 829502 RxNorm Bactrim ? ? ? 8318565 RxNorm Dabigatran Etexilate ? ? ? 899653 RxNorm Dexlansoprazole ? ? ? 967789 RxNorm Dilaudid ? ? ? 3640 RxNorm Doxycycline ? ? ? 6211 RxNorm Lactose ? ? ? 441183 RxNorm Moxifloxacin ? ? ? 49198 RxNorm Vancomycin ? ? ? Notes: egg [...] you have a medical power of Y trade mark attorney? What was the date of your most 03/03/2022 recent tobacco screening? Legal Guardian? N Do you have an advanced directive? Y Note s: CPR ok, DNI ok hospital Do you have an out of hospital DNR? N Do you or have you ever used any N other forms of tobacco or nicotine? Do you use any illicit or N recreational drugs? Where do you live? Apartment Notes: ILF at [facility] What is your relationship status? Functional Status Unknown. Past Encounters 05/08/2022 Anemia LEEANN ChiuP: [address], [place] [address], Ph. 05/04/2022 Sore Throat Symptom; Weight Loss; Chroni c Hyponatremia; Anemia; Atrial Fibrillation; Chronic Obstructive Lung Disease; Gastroesophageal Reflux Disease without Esophagitis; Myelodysplastic Syndrome (Clin ical); Hypothyroidism; Parkinson's Disea se; Restless Legs; Orthostatic Hypotension; Chronic Pain; Nausea; Chronic Constipation; Subdural Hematoma; Fracture of Superior Pubic Ramus; Fracture of Inferior Pubic Ramus; Chronic Tremor Lucila Engle CELLULAR EQUIPMENT REPAIRER: [address] [facility] [place] [place] [address], Ph. 05/01/2022 Weight Loss; Chronic Hyponatremia; Anemi a LEEANN ChiuP: [address] [place] [address], Ph. 04/28/2022 Atrial Fibrillation; Chronic Obstructive Lung Disease; Gastroesophageal Reflux Disease without Esophagitis; Myelodysplastic Syndrome (Clinical); Hypothyroidism; Parkinson's Disease; Restless Legs; Orthostatic Hypotension; Chronic Pain Maddy Smith MD: [address] [place] [address], Ph. 04/25/2022 Myelodysplastic Syndrome (Clinical); Par kinson's Disease; Chronic Obstructive Lung Disease; Acute Low Back Pain; Orthostatic Hypotension; Nausea; Anemia; Chronic Hyponatremia; Atrial Fibrillation; Chron ic Constipation; Subdural Hematoma; Frac ture of Superior Pubic Ramus; Fracture of Inferior Pubic Ramus; Hypothyroidism; Chronic Tremor Lucila Engle CELLULAR EQUIPMENT REPAIRER: [address] [place] [address], Ph. 04/20/2022 Myelodysplastic Syndrome (Clinical); Par kinson's Disease; Acute Low Back Pain; Nausea; Anemia; Chronic Constipation; Subdural Hematoma; Fracture of Superior Pubic Ramus; Fracture of Inferior Pubic Ramus ; Atrial Fibrillation; Hypothyroidism; O rthostatic Hypotension; Chronic Hyponatremia; Chronic Tremor Lucila Engle CELLULAR EQUIPMENT REPAIRER: [address] [place] [address], Ph. 04/18/2022 Myelodysplastic Syndrome (Clinical); Adam sea; Anemia; Chronic Constipation; Parkinson's Disease; Subdural Hematoma; Fracture of Superior Pubic Ramus; Fracture of Inferior Pubic Ramus; Atrial Fibrillation ; Hypothyroidism; Orthostatic Hypotensio n; Chronic Hyponatremia Lucila Engle NP: [address] [facility] [address], Ph. 04/10/2022 Myelodysplastic Syndrome (Clinical); Ane toby; Chronic Constipation; Parkinson's Disease; Subdural Hematoma; Fracture of Superior Pubic Ramus; Fracture of Inferior Pubic Ramus; Atrial Fibrillation; Hypoth yroidism; Orthostatic Hypotension; Chron ic Hyponatremia Marija Morrow MD: [address] [facility] [place] [address], Ph. 04/07/2022 Anemia; Parkinson's Disease LEEANN ChiuP: [address] [place] [address], Ph. History of Present Illness Note: <div>A 87 year old female being seen for a acute rounding visit. Patient is noted to have a low hgb/hct. Will have nursing call heme/onc. Will likely need a transfusion. </div> Review of Systems ? Notes: <div>All [...] 141, na 139, k 4.2, bun 24, loss prevention investigator 0.95, sabi 7.4</div><div>03/20/22 na 139, k 3.5, bun 28, loss prevention investigator 0.88, sabi 7.5</div><div>03/27/22 wbc 3.3 , hgb 7.1, hct 21.9, plt 149, na 134, k 4, bun 13, loss prevention investigator 0.78, sabi 8</ div><div>04/03/22 wbc 4, hgb 7.3, hct 22.3, plt 207, na 132, k 4.5 , bun 17, loss prevention investigator 0.82, sabi 8</div><div>04/10/22-WBC-3.4, H/H-6.6/20.9, plts-177, BUN/Cr-16/0.97, GFR-55, Na+1 31, K+4.5, glu-61</div><div>04/17: wbc 3.1, hgb 7.3, plt 152. Na 13 0, K 3.8, Bun13, Cr. 0.74, glu 65. </div><div>04/25: wbc 2.7, hgb 6.5, plt 141. </div><div>05/01/22 wbc 3.8, hgb 7.4, hct 22.9, plt 168, na 132, k 4.4, bun 17, loss prevention investigator 0.69, sabi 7.7</div><div>05/08/22 wb c 4.1, hgb 6.8, hct 21.4, plt 149, na 133, k 4.3, bun 20, loss prevention investigator 0.91 , sabi 7.7</div>
--- OUTSIDE RECORDS SUMMARY | 2022-06-19 00:23 | XMS_ITS | Encounter Summary ---
:1935 Author Care Team Providers Name Role Phone Art Ortiz Primary Care Provider [phone] [place] - 4th Floor OTHER [phone] Reason for Visit None recorded. Assessment and Plan 1. 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 Responded well to fluid restriction and Urea. Continue 1500 cc fluid restriction sodium 139 yesterday, BMP q sunday to tr end 2. Hyperkalemia Responded well to lokelma K now 4.3. BMP q sunday to trend 3. Anemia Related to MDS follows with Dr Cantu oncdanya through [facility] luspatercept treatments to continue as p er Hematology as well as prn transfusions. Hgb 8.2 yesterday, repeat CBC q sunday monitor labs and fax to oncology weekly [...] issues wit h hyponatremia Continue supplements - it risk and assurance senior manager activel y involved in care, trying to cater to food/beverage preferences. Diet downgraded to puree in hosp. Continue to monitor weight, intake Sen by the dentist today - refit denture s Monitor. Hospice met with family for informationa l visit - considering conservative end of life care. 7. Orthostatic hypotension midodrine increased to 5 mg tid in the hospital monitor VS. Off metoprolol at this time. 8. Atrial fibrillation continue amiodarone - dose increased to 400 mg daily metoprolol stopped consider restarting AC - currently on [...] Vit C 500 mg daily. Monitor labs. Discussion Note: None recorded.Patient educational handouts: No [...] Pressure 5 ft 6 in 115/62 mm[Hg] Results Lab Results None recorded. Allergies Code Code System Name Reaction Severity Onset 912204 RxNorm Bactrim ? ? ? 2695628 RxNorm Dabigatran Etexilate ? ? ? 856956 RxNorm Dexlansoprazole ? ? ? 471567 RxNorm Dilaudid ? ? ? 3640 RxNorm Doxycycline ? ? ? 6211 RxNorm Lactose ? ? ? 779223 RxNorm Moxifloxacin ? ? ? 74437 RxNorm Vancomycin ? ? ? Notes: egg [...] you have a medical power of Y personal injury attorney? What was the date of your [...] do you live? Apartment Notes: ILF at [facility] What is your relationship status? Functional Status Unknown. Past Encounters 06/08/2022 Chronic Hyponatremia; Hyperkalemia; Anem ia; Hypothyroidism; Parkinson's Disease; Weight Loss; Orthostatic Hypotension; Atrial Fibrillation; Chronic Constipation; Chronic Obstructive Lung Disease; Gastro esophageal Reflux Disease without Esopha gitis; Electrolyte Imbalance Lucila Engle MED ASST: [address] [place] [address], Ph. 05/25/2022 Acute Dermatitis; Chronic Insomnia; Dry Eyes; Fracture of Superior Pubic Ramus; Myelodysplastic Syndrome (Clinical); Weight Loss; Hypothyroidism Lucila Engle NP: [address] [place] [address], Ph. 05/23/2022 Weight Loss; Myelodysplastic Syndrome (C linical); Hypothyroidism Lucila Engle MED ASST: [address], [place] [address], Ph. 05/22/2022 Dry Eyes LEEANN ChiuP: [address], [place] [address], Ph. 05/19/2022 Weight Loss; Atrial Fibrillation; Chroni c Hyponatremia; Chronic Obstructive Lung Disease; Chronic Tremor; Hypothyroidism; Myelodysplastic Syndrome (Clinical); Anemia; Gastroesophageal Reflux Disease wit hout Esophagitis; Orthostatic Hypotensio n; Parkinson's Disease; Restless Legs GUILLERMO Chiu: [address], [place] [address], Ph. 05/15/2022 Chronic Hyponatremia; Anemia; Acute Cons tipation; Orthostatic Hypotension; Pain of Right Shoulder Joint GUILLERMO Chiu: [address], [place] [address], Ph. History of Present Illness Note: <div>Ximena is seen today for readmission. She returned from [facility] [place] 06[place]06 for continued careand rehab after a brief hosp. due to low BP, anemia, electrolyte imbalance. </div><div>
</div><div>She was sent to [facility] on 05/26 from her Oncologist's Office due [...] plan is to continue to trend labs andadminister Luspatercept as per Hematology. </div><div>Asthenia/malnutrition/weight loss/Vit C and Zinc deficiency - Seen by nutrition - supplements recommended. Zinc and C levels low, started po supplements to replace. Sore gum evaluated, seen by ST, now on pureed diet and prn oral gel. </div><div>PD - sinemet, primidone, requip continued. </div><div>Hypotension - stable improved after IVF and midodrine continued tid. PO intake encouraged. </div><div>AF - maintained on amiodarone, dose increased, metoprolol stopped. No on AC due to recent SDH. </div><div>Goals of care discussed which included end of life care. </div><div>
</div><div>Meds stopped - metoprolol, remeron</div><div>Meds changed - amiodarone 400 mg daily, gabapentin 200 mg q HS, primidone 100 mg q HS, midodrine 5 mg tid</div><div>
</div><div>
</div><div>Upon exam, Ximena just came back from the dentist. She had her dentures refitted. She has been feeling pretty good since shehas been back. Denies dizziness, no SOB, cough, CP. She is very constipated, and needed a supp. to move her bowels. She thinks she is eating allright , would like her diet advanced, working with ST. </div><div>
</div><div>
</div><div>PMH: Afib, COPD, myelodysplastic syndrom with pancytopenia, GERD, hypothyroidism, Parkinson's, RLS, s/p bilateral TKR, s/p SDH in 01/2022 and 2019, and s/p right superior and inferior pubic ramus fxs.</div><div>
</div><div>
</div> Review of Systems ? Notes: <div>All [...] and palpation: no rash, no ulcer Notes: <div> 05/01/22 wbc 3.8, hgb 7 .4, hct 22.9, plt 168, na 132, k 4.4, bun 17, portable grinding machine operator 0.69, sabi 7.7</d iv><div>05/08/22 wbc 4.1, hgb 6.8, hct 21.4, plt 149, na 133, k 4.3 , bun 20, portable grinding machine operator 0.91, sabi 7.7</div><div>05/15/22: wbc 4 .5, h&h [...] Cr. 1.11, glu 81. L FTs WNR. </div>
--- OUTSIDE RECORDS SUMMARY | 2022-06-19 00:23 | XMS_ITS | Encounter Summary ---
:1935 Author Care Team Providers Name Role Phone Art Ortiz Primary Care Provider [phone] Delonte Anglin - 4th Floor OTHER [phone] Reason for Visit Acute Rounding Visit Assessment and Plan Assessment Note AGREE WITH MECHANOTHERAPIST STUDENT 1. Chronic hyponatremia Sodium 134 today. Sodium 133 on 05/11/22 . Pt unaware of any fluid restriction. Pt has not been following but reports that she does not drink a lot. 1500 cc fluid restriction monitor labs sodium stable 2. Anemia Got infusion Sunday. Went well. H&H tod ay is 9.3/29.4. follows with Dr Alondra bello/onc through [facility] anemia injections through there q 3 week s transfusions as needed monitor labs and fax to oncology 3. Acute constipation Pt denies constipation. colace 100 mg bid senna 2 tabs q hs and 2 tabs qd prn lactulose 15 mls qod monitor need to increase medications 4. Orthostatic hypotension No dizziness, presyncope, or syncope. midodrine 2.5 mg bid monitor bps 5. Pain of right shoulder joint Chronic. Pain with abduction. Restricte d ROM bilaterally w ~100 degrees of abduction. Mild crepitus with abduction of right arm. Although exam was limited by environment and pt cooperation, suspect supraspinatus involvement or impingement syndrome. Will involve PT. Discussion Note: None recorded.Patient educational handouts: No [...] Pressure 5 ft 6 in 91/49 mm[Hg] Results Lab Results None recorded. Allergies Code Code System Name Reaction Severity Onset 933491 RxNorm Bactrim ? ? ? 2157558 RxNorm Dabigatran Etexilate ? ? ? 916177 RxNorm Dexlansoprazole ? ? ? 481869 RxNorm Dilaudid ? ? ? 3640 RxNorm Doxycycline ? ? ? 6211 RxNorm Lactose ? ? ? 677389 RxNorm Moxifloxacin ? ? ? 82251 RxNorm Vancomycin ? ? ? Notes: egg [...] you have a medical power of Y county attorney? What was the date of your [...] do you live? Apartment Notes: ILF at [facility] What is your relationship status? Functional Status Unknown. Past Encounters 05/15/2022 Chronic Hyponatremia; Anemia; Acute Cons tipation; Orthostatic Hypotension; Pain of Right Shoulder Joint GUILLERMO Chiu: [address] [place] [address], Ph. 05/08/2022 Anemia GUILLERMO Chiu: [address] [place] [address], Ph. 05/04/2022 Sore Throat Symptom; Weight Loss; Chroni c Hyponatremia; Anemia; Atrial Fibrillation; Chronic Obstructive Lung Disease; Gastroesophageal Reflux Disease without Esophagitis; Myelodysplastic Syndrome (Clin ical); Hypothyroidism; Parkinson's Disea se; Restless Legs; Orthostatic Hypotension; Chronic Pain; Nausea; Chronic Constipation; Subdural Hematoma; Fracture of Superior Pubic Ramus; Fracture of Inferior Pubic Ramus; Chronic Tremor Lucila Engle MECHANOTHERAPIST: [address] [place] [address], Ph. 05/01/2022 Weight Loss; Chronic Hyponatremia; Anemi a GUILLERMO Chiu: [address] [place] [address], Ph. 04/28/2022 Atrial Fibrillation; Chronic Obstructive Lung Disease; Gastroesophageal Reflux Disease without Esophagitis; Myelodysplastic Syndrome (Clinical); Hypothyroidism; Parkinson's Disease; Restless Legs; Orthostatic Hypotension; Chronic Pain Maddy Smith MD: [address] [place] [address], Ph. 04/25/2022 Myelodysplastic Syndrome (Clinical); Par kinson's Disease; Chronic Obstructive Lung Disease; Acute Low Back Pain; Orthostatic Hypotension; Nausea; Anemia; Chronic Hyponatremia; Atrial Fibrillation; Chron ic Constipation; Subdural Hematoma; Frac ture of Superior Pubic Ramus; Fracture of Inferior Pubic Ramus; Hypothyroidism; Chronic Tremor Lucila Engle MECHANOTHERAPIST: [address] [place] [address], Ph. 04/20/2022 Myelodysplastic Syndrome (Clinical); Par kinson's Disease; Acute Low Back Pain; Nausea; Anemia; Chronic Constipation; Subdural Hematoma; Fracture of Superior Pubic Ramus; Fracture of Inferior Pubic Ramus ; Atrial Fibrillation; Hypothyroidism; O rthostatic Hypotension; Chronic Hyponatremia; Chronic Tremor Lucila Engle MECHANOTHERAPIST: [address] [place] [address], Ph. 04/18/2022 Myelodysplastic Syndrome (Clinical); Adam sea; Anemia; Chronic Constipation; Parkinson's Disease; Subdural Hematoma; Fracture of Superior Pubic Ramus; Fracture of Inferior Pubic Ramus; Atrial Fibrillation ; Hypothyroidism; Orthostatic Hypotensio n; Chronic Hyponatremia Lucila Engle MECHANOTHERAPIST: [address] [place] [address], Ph. History of Present Illness Note: <div>A 87 year old female being seen for a acute rounding visit. Pt doing well with no CP, SOB, n/v, dizziness. She does note some right shoulder pain. She [facility] to [facility] Sunday for anemia infusion.</div>Review of Systems: ROS as noted in the [...] 141, na 139, k 4.2, bun 24, appellate court clerk 0.95, sabi 7.4</div><div>03/20/22 na 139, k 3.5, bun 28, appellate court clerk 0.88, sabi 7.5</div><div>03/27/22 wbc 3.3 , hgb 7.1, hct 21.9, plt 149, na 134, k 4, bun 13, appellate court clerk 0.78, sabi 8</ div><div>04/03/22 wbc 4, hgb 7.3, hct 22.3, plt 207, na 132, k 4.5 , bun 17, appellate court clerk 0.82, sabi 8</div><div>04/10/22-WBC-3.4, H/H-6.6/20.9, plts-177, BUN/Cr-16/0.97, GFR-55, Na+1 31, K+4.5, glu-61</div><div>04/17: wbc 3.1, hgb 7.3, plt 152. Na 13 0, K 3.8, Bun13, Cr. 0.74, glu 65. </div><div>04/25: wbc 2.7, hgb 6.5, plt 141. </div><div>05/01/22 wbc 3.8, hgb 7.4, hct 22.9, plt 168, na 132, k 4.4, bun 17, appellate court clerk 0.69, sabi 7.7</div><div>05/08/22 wb c 4.1, hgb 6.8, hct 21.4, plt 149, na 133, k 4.3, bun 20, appellate court clerk 0.91 , sabi 7.7</div><div>05/15/22: wbc 4.5, h&h 9.3/29.4, mchc 31.6 , rdw 21.4, plt 195, gluc 65, sodium 134, k+ 4.3, chloride 103, c o2 25, gap 6, bun 18, creat 0.88, eGFR >60, calcium 8.3</div>
--- OUTSIDE RECORDS SUMMARY | 2022-06-19 00:24 | XMS_ITS | Encounter Summary ---
:1935 Author Care Team Providers Name Role Phone Art Ortiz Primary Care Provider [phone] Delonte Anglin - 4th Floor OTHER [phone] Reason for Visit Acute Rounding Visit Assessment and Plan Assessment Note 03/02: wbc 2.4, hgb 8.3, hct 24.5, na 13 2, k 4.8, bun 22, creat 0.84, plt 123 1. Myelodysplastic syndrome (clinical) With anemia and leukopenia. Had transfusion of 1U PRBC last week Had follow up with Dr. Cantu yesterday - Continue luspatercept and weekly CBC - f orward results Dr. Cantu, [address] [facility], [phone] 2. Nausea and gagging, reported to be a chronic i ssue. PRN zofran available, keep bowels moving , light diet and advance as salena. monitor GI consult prn. 3. Anemia As above. Continue iron infusions through Dr. Cantu and transfuse as needed. 4. Chronic constipation Still with constipation. Remains on qid and prn oxycodone Currently on lactulose to 30 ml qd, cola ce 100 mg bid and senna 2 tabs daily Change senna and colace to senna plus 2 tabs daily Monitor bowels and adjust meds prn. 5. Parkinson's disease Continue primidone 100 mg qhs, gabapenti n 200 mg qhs, and Requip 1.5 mg TID. PT/OT as needed. F/U with neuro, Tiffanie Cheng NP, [address] [facility], [address], , 04/19 at 1 PM. 6. Subdural hematoma Stable. Neurosurg did not request f/u Monitor for neuro changes. 7. Fracture of superior pubic ramus Continue PT/OT as ordered Continue oxycodone 2.5 mg q 6 hours WA a nd BID prn, APAP 975 mg TID, gabapentin 200 mg qhs and lidocaine patch to right hip qd, and lidocaine 4% OTC patch to low back on q am, off q pm. Monitor pain control. F/U with ortho as planned. 8. Fracture of inferior pubic ramus As above. 9. Atrial fibrillation Rate in good control on amiodarone 200 mg BID Restart AC when ok with neurosurg. Will have nursing call Dr. Sebastian's office. If ok will restart apixaban 2.5 mg BID. Monitor HR and bleeding risk. 10. Hypothyroidism Continue levothyroxine 75 mcg qd Monitor TSH yearly 11. Orthostatic hypotension Continue midodrine 2.5 mg BID, hold for SBP>140 Monitor BP 12. Chronic hyponatremia Continues to have borderline low Na+ Continue 1500 cc fluid restriction Monitor labs. Discussion Note: None recorded.Patient educational [...] Pressure 5 ft 6 in 121/63 mm[Hg] Results Lab Results None recorded. Allergies Code Code System Name Reaction Severity Onset 396583 RxNorm Bactrim ? ? ? 9790313 RxNorm Dabigatran Etexilate ? ? ? 704192 RxNorm Dexlansoprazole ? ? ? 976665 RxNorm Dilaudid ? ? ? 3640 RxNorm Doxycycline ? ? ? 6211 RxNorm Lactose ? ? ? 970287 RxNorm Moxifloxacin ? ? ? 80377 RxNorm Vancomycin ? ? ? Notes: egg [...] quit 20 yrs ago What is your code status? DNI Do you have a medical power of Y deputy attorney general? What is your relationship status? What is your level of alcohol None consumption? Do you have an out of hospital DNR? N Legal Guardian? N Do you or have you ever used any N other forms of tobacco or nicotine? Has tobacco cessation counseling N Notes: n/a as pt no longer been provided? smokes What was the date of your most 03/03/2022 recent tobacco screening? Do you have an advanced directive? Y Note s: CPR ok, DNI ok hospital Do you use any illicit or N recreational drugs? Where do you live? Apartment Notes: ILF at [facility] Functional Status Unknown. Past Encounters 04/18/2022 Myelodysplastic Syndrome (Clinical); Adam sea; Anemia; Chronic Constipation; Parkinson's Disease; Subdural Hematoma; Fracture of Superior Pubic Ramus; Fracture of Inferior Pubic Ramus; Atrial Fibrillation ; Hypothyroidism; Orthostatic Hypotensio n; Chronic Hyponatremia Lucila Engle, ENGLISH TEACHER: [address] [place] [address], Ph. 04/10/2022 Myelodysplastic Syndrome (Clinical); [place]; Chronic Constipation; Parkinson's Disease; Subdural Hematoma; Fracture of Superior Pubic Ramus; Fracture of Inferior Pubic Ramus; Atrial Fibrillation; Hypoth yroidism; Orthostatic Hypotension; Chron ic Hyponatremia Marija Morrow MD: [address], [place] [address], Ph. 04/07/2022 Anemia; Parkinson's Disease GUILLERMO Chiu: [address], [place] [address], Ph. 04/06/2022 Anemia; Acute Constipation; Fracture of Superior Pubic Ramus; Atrial Fibrillation; Hypothyroidism; Orthostatic Hypotension; Myelodysplastic Syndrome (Clinical); Chronic Hyponatremia Lucila Engle ENGLISH TEACHER: [address], [place] [address], Ph. 04/03/2022 Anemia; Acute Constipation GUILLERMO Chiu: [address], [place] [address], Ph. 03/31/2022 Acute Constipation GUILLERMO Chiu: [address], [place] [address], Ph. 03/30/2022 Fracture of Superior Pubic Ramus Lucila Engle ENGLISH TEACHER: [address], [place] [address], Ph. 03/27/2022 Anemia; Chronic Hyponatremia GUILLERMO Chiu: [address], [place] [address], Ph. 03/24/2022 Atrial Fibrillation; Chronic Obstructive Lung Disease; Hypothyroidism; Orthostatic Hypotension; Myelodysplastic Syndrome (Clinical); Parkinson's Disease; Restless Legs; Chronic Hyponatremia; Fall; Anemi a; Chronic Tremor; Gastroesophageal Refl ux Disease without Esophagitis; Fracture of Single Pubic Ramus GUILLERMO Chiu: [address], [place] [address], Ph. 03/20/2022 Anemia; Gastroesophageal Reflux Disease without Esophagitis GUILLERMO Chiu: [address], [place] [address], Ph. History of Present Illness Note: <div>Ximena is seen today for an acute visit. </div><div>
</div>&l t;div>Due to anemia (known MDS, followed by Hematology), she was recently transfused with 1 unit PRBCs. She has follow up with Dr. Cantu yesterday, to continue with luspatercept and weekly CBC. Hgb yesterday 7.3. </div><div>
</div><div>She complains of nausea this morning, given a zofran, had to hold some of am meds as not able to get them down. She complains of some abdominal pain and GI upset. Voiding well, but can't remember the last time she moved her bowels. BM book checked, no BM x 5 days. Lactulose recently increased to 30 ml daily, also on senna and colace. </div><div>
</div><div>
</div><div>Her PMH includes Afib, COPD, myelodysplastic syndrom with pancytopenia, GERD, hypothyroidism, Parkinson& amp;#39;s, RLS, s/p bilateral TKR, s/p SDH in [...] Hearing: hearing decreased. Oropharynx: moist mucous membranes Lungs: Auscultation: breath sounds normal, no wheezing, no rales/crackles, no rhonchi Cardiovascular: Heart Auscultation: irregula rly irregular Abdomen: Bowel Sounds: normal, soft, no guarding, non-distended, no masses; mild generalized tenderness of abdomen Musculoskeletal:: Extremities: no cyanosis, no edema. Joints, Bones, and Muscles normal movement of all extre mities Neurologic: Cranial Nerves: grossly inta ct Skin: Inspection and palpation: no rash, no ulcer Notes: <div>Labs </div><div>03/02-WB C-2.4, H/H-8.3/24.5, plts-123, BUN/Cr-22/0.84, GFR>60, N a+132, K+4.8, glu-73</div><div>03/09/22 wbc 3, hgb 7.5, hct 23.7, pl t 141, na 139, k 4.2, bun 24, auto roller 0.95, sabi 7.4</div><div>03/20/22 na 139, k 3.5, bun 28, auto roller 0.88, sabi 7.5</div><div>03/27/22 wbc 3.3 , hgb 7.1, hct 21.9, plt 149, na 134, k 4, bun 13, auto roller 0.78, sabi 8</ div><div>04/03/22 wbc 4, hgb 7.3, hct 22.3, plt 207, na 132, k 4.5 , bun 17, auto roller 0.82, sabi 8</div><div>04/10/22-WBC-3.4, H/H-6.6/20.9, plts-177, BUN/Cr-16/0.97, GFR-55, Na+1 31, K+4.5, glu-61</div><div>04/17: wbc 3.1, hgb 7.3, plt 152. Na 13 0, K 3.8, Bun13, Cr. 0.74, glu 65. </div>
--- OUTSIDE RECORDS SUMMARY | 2022-06-19 00:24 | XMS_ITS | Encounter Summary ---
:1935 Author Care Team Providers Name Role Phone Art Ortiz Primary Care Provider [phone] Delonte Anglin - 4th Floor OTHER [phone] Reason for Visit Acute Rounding Visit Assessment and Plan 1. Fracture of superior pubic ramus Continue PT OT Continue current meds. Add lidocaine 4% OTC patch to low back o n q am, off q pm. Monitor for effect. Discussion Note: None recorded.Patient educational handouts: No [...] Pressure 5 ft 6 in 133/75 mm[Hg] Results Lab Results None recorded. Allergies Code Code System Name Reaction Severity Onset 945221 RxNorm Bactrim ? ? ? 7618627 RxNorm Dabigatran Etexilate ? ? ? 325590 RxNorm Dexlansoprazole ? ? ? 467166 RxNorm Dilaudid ? ? ? 3640 RxNorm Doxycycline ? ? ? 6211 RxNorm Lactose ? ? ? 920455 RxNorm Moxifloxacin ? ? ? 96350 RxNorm Vancomycin ? ? ? Notes: egg [...] you have a medical power of Y contracts attorney? What was the date of your [...] live? Apartment Notes: ILF at [facility] What is your relationship status? Functional Status Unknown. Past Encounters 03/30/2022 Fracture of Superior Pubic Ramus Lucila Engle REMNANTS CUTTER: [address] [place] [address], Ph. 03/27/2022 Anemia; Chronic Hyponatremia LEEANN ChiuP: [address] [place] [address], Ph. 03/24/2022 Atrial Fibrillation; Chronic Obstructive Lung Disease; Hypothyroidism; Orthostatic Hypotension; Myelodysplastic Syndrome (Clinical); Parkinson's Disease; Restless Legs; Chronic Hyponatremia; Fall; Anemi a; Chronic Tremor; Gastroesophageal Refl ux Disease without Esophagitis; Fracture of Single Pubic Ramus GUILLERMO Chiu: [address], [place] [address], Ph. 03/20/2022 Anemia; Gastroesophageal Reflux Disease without Esophagitis GUILLERMO Chiu: [address], [place] [address], Ph. 03/13/2022 Anemia; Gastroesophageal Reflux Disease without Esophagitis GUILLERMO Chiu: [address], [place] [address], Ph. 03/10/2022 Urinary Tract Infectious Disease; Anemia ; Myelodysplastic Syndrome (Clinical); Fracture of Single Pubic Ramus GUILLERMO Chiu: [address], [place] [address], Ph. 03/07/2022 Chronic Hyponatremia; Fracture of Single Pubic Ramus; Atrial Fibrillation GUILLERMO Chiu: [address], [place] [address], Ph. 03/03/2022 Subdural Hematoma; Fracture of Superior Pubic Ramus; Fracture of Inferior Pubic Ramus; Myelodysplastic Syndrome (Clinical); Atrial Fibrillation; Chronic Obstructive Lung Disease; Hypothyroidism; Orthost atic Hypotension; Parkinson's Disease; R estless Legs; Chronic Hyponatremia; Fall Marija Morrow MD: [address], [place] [address], Ph. 03/02/2022 Subdural Hematoma; Fracture of Single Pu bic Ramus; Myelodysplastic Syndrome (Clinical); Atrial Fibrillation; Chronic Obstructive Lung Disease; Hypothyroidism; Orthostatic Hypotension; Parkinson's Disease; Restless Legs; Chronic Hyponatremia; Fall Delilah Stock: [address], [place] [address], Ph. History of Present Illness Note: <div>Ximena is seen today for an acute visit.</div><div>Due to back spasms, asking for more pain medication. Also with decreased appetite and refusing care. </div><div>Upon exam, Ximena is in bed. Says she is having back pain, interfering with ADLs. </div><div>Meds reviewed, options discussed. She wants better pain control, but doesn't want to takemore meds. </div><div>Antispasmodics not ideal due to current meds, would avoid</div&g t;<div>Already on oxycodone qid and prn as well as gabapentin at HS, does not really want to increase oxycodone dose.</div><div>Increase in gabapentin discussed as well as topical prep such as lidocaine patch which she is interested in trying.</div> Review of Systems ? Notes: <div>All others [...] membranes Neck: Neck: FROM Cardiovascular: Heart Auscultation: RRR Abdomen: Bowel Sounds: soft, non-dist ended, no tenderness Musculoskeletal:: Extremities: no cyanosis, no edema Neurologic: Cranial Nerves: grossly inta ct Skin: Inspection and palpation: no rash, no ulcer Notes: <div>Labs </div><div>03/02-WB C-2.4, H/H-8.3/24.5, plts-123, BUN/Cr-22/0.84, GFR>60, N a+132, K+4.8, glu-73</div><div>03/09/22 wbc 3, hgb 7.5, hct 23.7, pl t 141, na 139, k 4.2, bun 24, hip hop artist 0.95, sabi 7.4</div><div>03/20/22 na 139, k 3.5, bun 28, hip hop artist 0.88, sabi 7.5</div><div>03/27/22 wbc 3.3 , hgb 7.1, hct 21.9, plt 149, na 134, k 4, bun 13, hip hop artist 0.78, sabi 8</ div>
--- OUTSIDE RECORDS SUMMARY | 2022-06-19 00:24 | XMS_ITS | Encounter Summary ---
:1935 Author Care Team Providers Name Role Phone Art Ortiz Primary Care Provider [phone] Sutterovidio Anglin - 4th Floor OTHER [phone] Reason for Visit Acute Rounding Visit Assessment and Plan 1. Acute constipation colace 100 mg bid senna 2 tabs q hs and 2 tabs qd prn requiring fleets frequently will add lactulose 15 mls qod monitor need to increase medications Discussion Note: None recorded.Patient educational handouts: No [...] in 126.1 lbs 20.4 kg/m2 114/61 mm[Hg] Results Lab Results None recorded. Allergies Code Code System Name Reaction Severity Onset 417418 RxNorm Bactrim ? ? ? 0885270 RxNorm Dabigatran Etexilate ? ? ? 120656 RxNorm Dexlansoprazole ? ? ? 793235 RxNorm Dilaudid ? ? ? 3640 RxNorm Doxycycline ? ? ? 6211 RxNorm Lactose ? ? ? 509776 RxNorm Moxifloxacin ? ? ? 15548 RxNorm Vancomycin ? ? ? Notes: egg [...] do you live? Apartment Notes: ILF at [facility] What is your relationship status? Functional Status Unknown. Past Encounters 03/31/2022 Acute Constipation LEEANN ChiuP: [address] [place] [address], Ph. 03/30/2022 Fracture of Superior Pubic Ramus Lucila Engle SOUND ENGINEERING TECHNICIAN: [address] [place] [address], Ph. 03/27/2022 Anemia; Chronic Hyponatremia GUILLERMO Chiu: [address], [place] [address], Ph. 03/24/2022 Atrial Fibrillation; Chronic Obstructive Lung Disease; Hypothyroidism; Orthostatic Hypotension; Myelodysplastic Syndrome (Clinical); Parkinson's Disease; Restless Legs; Chronic Hyponatremia; Fall; Anemi a; Chronic Tremor; Gastroesophageal Refl ux Disease without Esophagitis; Fracture of Single Pubic Ramus GUILLERMO Chiu: [address], [place] [address], Ph. 03/20/2022 Anemia; Gastroesophageal Reflux Disease without Esophagitis GUILLERMO Chiu: [address], [place] [address], Ph. 03/13/2022 Anemia; Gastroesophageal Reflux Disease without Esophagitis GUILLERMO Chiu: [address], [place] [address], Ph. 03/10/2022 Urinary Tract Infectious Disease; Anemia ; Myelodysplastic Syndrome (Clinical); Fracture of Single Pubic Ramus GUILLERMO Chiu: [address], [place] [address], Ph. 03/07/2022 Chronic Hyponatremia; Fracture of Single Pubic Ramus; Atrial Fibrillation GUILLERMO Chiu: [address], [place] [address], Ph. 03/03/2022 Subdural Hematoma; Fracture of Superior Pubic Ramus; Fracture of Inferior Pubic Ramus; Myelodysplastic Syndrome (Clinical); Atrial Fibrillation; Chronic Obstructive Lung Disease; Hypothyroidism; Orthost atic Hypotension; Parkinson's Disease; R estless Legs; Chronic Hyponatremia; Fall Marija Morrow MD: [address], [place] [address], Ph. 03/02/2022 Subdural Hematoma; Fracture of Single Pu bic Ramus; Myelodysplastic Syndrome (Clinical); Atrial Fibrillation; Chronic Obstructive Lung Disease; Hypothyroidism; Orthostatic Hypotension; Parkinson's Disease; Restless Legs; Chronic Hyponatremia; Fall Delilah Stock: [address] [place] [address], Ph. History of Present Illness Note: <div>A 87 year old female being seen for a acute rounding visit. Patient is noted to have complaints of constipation and requiring frequent enemas. Spoke with her about her bowel regimen and will add lactulose qod. Will monitor. </div> Review of Systems ? Notes: [...] no rales/crackles, no rhonchi Cardiovascular: Heart Auscultation: RRR Abdomen: Bowel Sounds: normal, soft, non-distended, no tenderness Musculoskeletal:: Extremities: no cyanosis, no edema Neurologic: Cranial Nerves: grossly inta ct Skin: Inspection and palpation: no rash, no ulcer Notes: <div>Labs </div><div>03/02-WB C-2.4, H/H-8.3/24.5, plts-123, BUN/Cr-22/0.84, GFR>60, N a+132, K+4.8, glu-73</div><div>03/09/22 wbc 3, hgb 7.5, hct 23.7, pl t 141, na 139, k 4.2, bun 24, bag sorter 0.95, sabi 7.4</div><div>03/20/22 na 139, k 3.5, bun 28, bag sorter 0.88, sabi 7.5</div><div>03/27/22 wbc 3.3 , hgb 7.1, hct 21.9, plt 149, na 134, k 4, bun 13, bag sorter 0.78, sabi 8</ div>
--- OUTSIDE RECORDS SUMMARY | 2022-06-19 00:24 | XMS_ITS | Encounter Summary ---
:1935 Author Care Team Providers Name Role Phone Art Ortiz Primary Care Provider [phone] Martindaleovidio Anglin - 4th Floor OTHER [phone] Reason for Visit Acute Rounding Visit Assessment and Plan 1. Anemia follows with Dr Alondra parks through [facility] continue to monitor labs is getting anemia injections through the re monitor for need to transfuse 2. Chronic hyponatremia 1500 cc fluid restrict monitor labs-normal sodium today Discussion Note: None recorded.Patient educational handouts: No [...] Pressure 5 ft 6 in 93/49 mm[Hg] Results Lab Results None recorded. Allergies Code Code System Name Reaction Severity Onset 674622 RxNorm Bactrim ? ? ? 7601151 RxNorm Dabigatran Etexilate ? ? ? 847388 RxNorm Dexlansoprazole ? ? ? 876414 RxNorm Dilaudid ? ? ? 3640 RxNorm Doxycycline ? ? ? 6211 RxNorm Lactose ? ? ? 412425 RxNorm Moxifloxacin ? ? ? 03019 RxNorm Vancomycin ? ? ? Notes: egg [...] you have a medical power of Y compliance attorney? What was the date of your [...] do you live? Apartment Notes: ILF at [facility] What is your relationship status? Functional Status Unknown. Past Encounters 03/27/2022 Anemia; Chronic Hyponatremia LEEANN ChiuP: [address], [place] [address], Ph. 03/24/2022 Atrial Fibrillation; Chronic Obstructive Lung Disease; Hypothyroidism; Orthostatic Hypotension; Myelodysplastic Syndrome (Clinical); Parkinson's Disease; Restless Legs; Chronic Hyponatremia; Fall; Anemi a; Chronic Tremor; Gastroesophageal Refl ux Disease without Esophagitis; Fracture of Single Pubic Ramus GUILLERMO Chiu: [address], [place] [address], Ph. 03/20/2022 Anemia; Gastroesophageal Reflux Disease without Esophagitis GUILLERMO Chiu: [address], [place] [address], Ph. 03/13/2022 Anemia; Gastroesophageal Reflux Disease without Esophagitis GUILLERMO Chiu: [address], [place] [address], Ph. 03/10/2022 Urinary Tract Infectious Disease; Anemia ; Myelodysplastic Syndrome (Clinical); Fracture of Single Pubic Ramus GUILLERMO Chiu: [address], [place] [address], Ph. 03/07/2022 Chronic Hyponatremia; Fracture of Single Pubic Ramus; Atrial Fibrillation GUILLERMO Chiu: [address], [place] [address], Ph. 03/03/2022 Subdural Hematoma; Fracture of Superior Pubic Ramus; Fracture of Inferior Pubic Ramus; Myelodysplastic Syndrome (Clinical); Atrial Fibrillation; Chronic Obstructive Lung Disease; Hypothyroidism; Orthost atic Hypotension; Parkinson's Disease; R estless Legs; Chronic Hyponatremia; Fall Marija Morrow MD: [address] [place] [address], Ph. 03/02/2022 Subdural Hematoma; Fracture of Single Pu bic Ramus; Myelodysplastic Syndrome (Clinical); Atrial Fibrillation; Chronic Obstructive Lung Disease; Hypothyroidism; Orthostatic Hypotension; Parkinson's Disease; Restless Legs; Chronic Hyponatremia; Fall Delilah Stock: [address] [place] [address], Ph. History of Present Illness Note: <div>A 87 year old female being seen for a acute rounding visit. Patient is noted to be doingwell but continues to have anemia. She [facility] and will be goingback as scheduled. 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 She does not have anyconcerns with this. Will continue to monitor. </div> Review of Systems ? [...] 141, na 139, k 4.2, bun 24, hardware manager 0.95, sabi 7.4</div><div>03/20/22 na 139, k 3.5, bun 28, hardware manager 0.88, sabi 7.5</div><div>03/27/22 wbc 3.3 , hgb 7.1, hct 21.9, plt 149, na 134, k 4, bun 13, hardware manager 0.78, sabi 8</ div>
--- OUTSIDE RECORDS SUMMARY | 2022-06-19 00:24 | XMS_ITS | Encounter Summary ---
:1935 Author Care Team Providers Name Role Phone Art Ortiz Primary Care Provider [phone] Lomaovidio Anglin - 4th Floor OTHER [phone] Reason for Visit Acute Rounding Visit Assessment and Plan 1. Anemia follows with Dr Alondra parks through [facility] continue to monitor labs is getting anemia injections through the re noted to be symptomatic with sob transfusion scheduled for sunday at 8 am monitor 2. Parkinson's disease primidone 100 mg q hs gabapentin 200 mg q hs requip 1.5 mg tid monitor daughter wants meds adjusted-will have h er see her neuro Tiffaniekendal Cheng at [address] [place], [place] [phone] Discussion Note: None recorded.Patient educational handouts: No [...] Pressure 5 ft 6 in 115/69 mm[Hg] Results Lab Results None recorded. Allergies Code Code System Name Reaction Severity Onset 525762 RxNorm Bactrim ? ? ? 7956541 RxNorm Dabigatran Etexilate ? ? ? 575801 RxNorm Dexlansoprazole ? ? ? 167951 RxNorm Dilaudid ? ? ? 3640 RxNorm Doxycycline ? ? ? 6211 RxNorm Lactose ? ? ? 404126 RxNorm Moxifloxacin ? ? ? 13614 RxNorm Vancomycin ? ? ? Notes: egg [...] you have a medical power of Y criminal attorney? What was the date of your [...] do you live? Apartment Notes: ILF at [facility] What is your relationship status? Functional Status Unknown. Past Encounters 04/07/2022 Anemia; Parkinson's Disease Alejandrina Siegel, MELT ROOM OPERATOR: [address], [place] [address], Ph. 04/06/2022 Anemia; Acute Constipation; Fracture of Superior Pubic Ramus; Atrial Fibrillation; Hypothyroidism; Orthostatic Hypotension; Myelodysplastic Syndrome (Clinical); Chronic Hyponatremia Lucila Engle RN HEMATOLOGY: [address], [place] [address], Ph. 04/03/2022 Anemia; Acute Constipation GUILLERMO Chiu: [address], [place] [address], Ph. 03/31/2022 Acute Constipation GUILLERMO Chiu: [address], [place] [address], Ph. 03/30/2022 Fracture of Superior Pubic Ramus Lucila Engle RN HEMATOLOGY: [address], [place] [address], Ph. 03/27/2022 Anemia; Chronic Hyponatremia GUILLERMO Chiu: [address], [place] [address], Ph. 03/24/2022 Atrial Fibrillation; Chronic Obstructive Lung Disease; Hypothyroidism; Orthostatic Hypotension; Myelodysplastic Syndrome (Clinical); Parkinson's Disease; Restless Legs; Chronic Hyponatremia; Fall; Anemi a; Chronic Tremor; Gastroesophageal Refl ux Disease without Esophagitis; Fracture of Single Pubic Ramus GUILLERMO Chiu: [address], [place] [address], Ph. 03/20/2022 Anemia; Gastroesophageal Reflux Disease without Esophagitis GUILLERMO Chiu: [address], [place] [address], Ph. 03/13/2022 Anemia; Gastroesophageal Reflux Disease without Esophagitis GUILLERMO Chiu: [address], [place] [address], Ph. 03/10/2022 Urinary Tract Infectious Disease; Anemia ; Myelodysplastic Syndrome (Clinical); Fracture of Single Pubic Ramus GUILLEROM Chiu: [address], [place] [address], Ph. 03/07/2022 Chronic Hyponatremia; Fracture of Single Pubic Ramus; Atrial Fibrillation LEEANN ChiuP: [address], [facility] [place] [address], Ph. History of Present Illness Note: <div>A 87 year old female being seen for a acute rounding visit. Patient is noted to be doingwell. She is going for a transfusion on Sunday at 8 am and she does note some shortness of breath. Her daughter wants her parkinsons medication to be increased-will send to her neurologist. Continue tomonitor. </div> Review of Systems ? Notes: <div>All [...] soft, non-distended, no tenderness Musculoskeletal:: Extremities: no cyanosis; bi lateral trace edema with positive pulses. Joints, Bones, and M uscles (normal) normal movement of all extremities Neurologic: Cranial Nerves: grossly inta ct Skin: Inspection and palpation: no rash Notes: <div>Labs </div><div>03/02-WB C-2.4, H/H-8.3/24.5, plts-123, BUN/Cr-22/0.84, GFR>60, N a+132, K+4.8, glu-73</div><div>03/09/22 wbc 3, hgb 7.5, hct 23.7, pl t 141, na 139, k 4.2, bun 24, sample checker 0.95, sabi 7.4</div><div>03/20/22 na 139, k 3.5, bun 28, sample checker 0.88, sabi 7.5</div><div>03/27/22 wbc 3.3 , hgb 7.1, hct 21.9, plt 149, na 134, k 4, bun 13, sample checker 0.78, sabi 8</ div><div>04/03/22 wbc 4, hgb 7.3, hct 22.3, plt 207, na 132, k 4.5 , bun 17, sample checker 0.82, sabi 8</div>
--- OUTSIDE RECORDS SUMMARY | 2022-06-19 00:24 | XMS_ITS | Encounter Summary ---
:1935 Author Care Team Providers Name Role Phone Art Ortiz Primary Care Provider [phone] Delonte Anglin - 4th Floor OTHER [phone] Reason for Visit Acute Rounding Visit Assessment and Plan Assessment Note 03/02: wbc 2.4, hgb 8.3, hct 24.5, na 13 2, k 4.8, bun 22, creat 0.84, plt 123 1. Myelodysplastic syndrome (clinical) With anemia and leukopenia. Had transfusion of 1U PRBC this AM. F/U with heme/onc, Dr. Cantu, [address] [place] [address], on 04/17 at 9:45 AM 2. Anemia As above. Continue iron infusions through Dr. Cantu and transfuse as needed. 3. Chronic constipation Will increase lactulose to 30 ml qd and monitor bowel function. Continue other bowel meds as ordered. 4. Parkinson's disease Continue primidone 100 mg qhs, gabapenti n 200 mg qhs, and Requip 1.5 mg TID. PT/OT as needed. F/U with neuro, Tiffanie Cheng NP, [facility], [address], , 04/19 at 1 PM. 5. Subdural hematoma Stable. Neurosurg did not request f/u Monitor for neuro changes. 6. Fracture of superior pubic ramus Continue PT/OT as ordered Continue oxycodone 2.5 mg q 6 hours WA a nd BID prn, APAP 975 mg TID, gabapentin 200 mg qhs and lidocaine patch to right hip qd, and lidocaine 4% OTC patch to low back on q am, off q pm. Monitor pain control. F/U with ortho as planned. 7. Fracture of inferior pubic ramus As above. 8. Atrial fibrillation Rate in good control on amiodarone 200 mg BID Restart AC when ok with neurosurg. Will have nursing call in AM. If ok will restart apixaban 2.5 mg BID. Monitor HR and bleeding risk. 9. Hypothyroidism Continue levothyroxine 75 mcg qd Monitor TSH yearly 10. Orthostatic hypotension Continue midodrine 2.5 mg BID, hold for SBP>140 Monitor BP 11. Chronic hyponatremia Continues to have borderline low [...] in 126.1 lbs 20.4 kg/m2 128/63 mm[Hg] Results Lab Results None recorded. Allergies Code Code System Name Reaction Severity Onset 838407 RxNorm Bactrim ? ? ? 7312294 RxNorm Dabigatran Etexilate ? ? ? 018221 RxNorm Dexlansoprazole ? ? ? 556478 RxNorm Dilaudid ? ? ? 3640 RxNorm Doxycycline ? ? ? 6211 RxNorm Lactose ? ? ? 704605 RxNorm Moxifloxacin ? ? ? 19359 RxNorm Vancomycin ? ? ? Notes: egg [...] you have a medical power of Y owner spa director? What was the date of your most [...] live? Apartment Notes: ILF at [facility] What is your relationship status? Functional Status Unknown. Past Encounters 04/10/2022 Myelodysplastic Syndrome (Clinical); Ane toby; Chronic Constipation; Parkinson's Disease; Subdural Hematoma; Fracture of Superior Pubic Ramus; Fracture of Inferior Pubic Ramus; Atrial Fibrillation; Hypoth yroidism; Orthostatic Hypotension; Chron ic Hyponatremia Marija Morrow MD: [address] [place] [address], Ph. 04/07/2022 Anemia; Parkinson's Disease GUILLERMO Chiu: [address] [facility] [place] [address], Ph. 04/06/2022 Anemia; Acute Constipation; Fracture of Superior Pubic Ramus; Atrial Fibrillation; Hypothyroidism; Orthostatic Hypotension; Myelodysplastic Syndrome (Clinical); Chronic Hyponatremia Lucila Engle SHIFT COMMANDER: [address], [place] [address], Ph. 04/03/2022 Anemia; Acute Constipation GUILLERMO Chiu: [address], [place] [address], Ph. 03/31/2022 Acute Constipation GUILLERMO Chiu: [address], [place] [address], Ph. 03/30/2022 Fracture of Superior Pubic Ramus Lucila Engle SHIFT COMMANDER: [address], [place] [address], Ph. 03/27/2022 Anemia; Chronic Hyponatremia GUILLERMO Chiu: [address], [place] [address], Ph. 03/24/2022 Atrial Fibrillation; Chronic Obstructive Lung Disease; Hypothyroidism; Orthostatic Hypotension; Myelodysplastic Syndrome (Clinical); Parkinson's Disease; Restless Legs; Chronic Hyponatremia; Fall; Anemi a; Chronic Tremor; Gastroesophageal Refl ux Disease without Esophagitis; Fracture of Single Pubic Ramus GUILLERMO Chiu: [address], [place] [address], Ph. 03/20/2022 Anemia; Gastroesophageal Reflux Disease without Esophagitis GUILLERMO Chiu: [address], [place] [address], Ph. 03/13/2022 Anemia; Gastroesophageal Reflux Disease without Esophagitis GUILLERMO Chiu: [address], [place] [address], Ph. 03/10/2022 Urinary Tract Infectious Disease; Anemia ; Myelodysplastic Syndrome (Clinical); Fracture of Single Pubic Ramus GUILLERMO Chiu: [address], [place] [address], Ph. History of Present Illness Note: <div>I am seeing this 87 yo woman for an acute visit. She has been here since 03/01 due to a right SDH and pubic rami fxs after a mechanical fall. She was continuing to have nausea and gagging which she says is chronic, but says it is better since she's started eating before she takes her meds. She went out today for a transfusion and got 1U PRBC. She wishes they had given her 2U as then she doesn't have to go as often.</div><div>She tells me she continues to be constipated despite her current bowel regimen, and currently has some low abd pain across her lower belly. </div><div>Her PMH includes Afib, COPD, myelodysplastic syndrom with pancytopenia, GERD, hypothyroidism, Parkinson's, RLS, s/p bilateral TKR, s/p SDH in 01/2022 and 2018, and s/p right superior and inferior pubic ramus fxs. </div> Review of Systems ? Notes: <div>All others reviewed and negative unless otherwise stated in the HPI.</div> Physical Exam ? General Adult Exam Reported By: Patient Constitutional: General Appearance: ; thin. Level of Distress: NAD. Ambulation: limited ambulation, ambulati on with walker, in wheelchair; Currently in bed Psychiatric: Insight: good judgement. Men [...] Auscultation: RRR Abdomen: Bowel Sounds: normal, soft, non-distended; mild tenderness across lower abd, sl. firm to palpa tion Musculoskeletal:: Extremities: no cyanosis, ed pérez. Joints, Bones, and Muscles normal movement of all extremities Neurologic: Cranial Nerves: grossly inta ct Skin: Inspection and palpation: no rash, no ulcer Notes: <div>Labs </div><div>03/02-WB C-2.4, H/H-8.3/24.5, plts-123, BUN/Cr-22/0.84, GFR>60, N a+132, K+4.8, glu-73</div><div>03/09/22 wbc 3, hgb 7.5, hct 23.7, pl t 141, na 139, k 4.2, bun 24, planning division superintendent 0.95, sabi 7.4</div><div>03/20/22 na 139, k 3.5, bun 28, planning division superintendent 0.88, sabi 7.5</div><div>03/27/22 wbc 3.3 , hgb 7.1, hct 21.9, plt 149, na 134, k 4, bun 13, planning division superintendent 0.78, sabi 8</ div><div>04/03/22 wbc 4, hgb 7.3, hct 22.3, plt 207, na 132, k 4.5 , bun 17, planning division superintendent 0.82, sabi 8</div><div>04/10/22-WBC-3.4, H/H-6.6/20.9, plts-177, BUN/Cr-16/0.97, GFR-55, Na+1 31, K+4.5, glu-61</div>
--- OUTSIDE RECORDS SUMMARY | 2022-06-19 00:24 | XMS_ITS | Encounter Summary ---
:1935 Author Care Team Providers Name Role Phone Art Ortiz Primary Care Provider [phone] Delonte Anglin - 4th Floor OTHER [phone] Reason for Visit Acute Rounding Visit Assessment and Plan Assessment Note 03/02: wbc 2.4, hgb 8.3, hct 24.5, na 13 2, k 4.8, bun 22, creat 0.84, plt 123 1. Myelodysplastic syndrome (clinical) With anemia and leukopenia. Drop in hgb. to 6.5 - called Dr. Cantu's office to report, will send over hard copy when obtained off printer. Had transfusion of 1U PRBC a few weeks a go Had follow up with Dr. Cantu - continue l uspatercept and weekly CBC - forward results Dr. Cantu, [facility], 2. Parkinson's disease Seen by Neuro last week, and due to comp laints of increased tremors, added rytary 23.75/95 1 tid x 1 wk, then increase to 2 tid if salena. well. Per pharmacy, prior auth required for th is formulation, but will cover ER formulation. Nsg. to call neuro to see if they are ok with ER formulation. Continue primidone 100 mg qhs, gabapenti n 200 mg qhs, and Requip 1.5 mg TID. PT/OT as needed. Had F/U with neuro, Tiffanie Cheng, [address], [facility], [address], . Uncertain if follow up appt. made at that time. 3. Chronic obstructive lung disease Seen by Dr. Perez 04/21 - start Anoro 1 in h. daily 6 month follow up in October 2022. 4. Acute low back pain Improving Check X ray LS spine - NAD. Continue APAP tid and oxy prn Added lidocaine patch on q am, off q pm. 5. Orthostatic hypotension Continue midodrine 2.5 mg BID, hold for SBP>140 Monitor BP 6. Nausea and gagging, reported to be a chronic i ssue. PRN zofran available, keep bowels moving , light diet and advance as salena. monitor GI consult prn. 7. Anemia As above. Continue iron infusions through Dr. Cantu and transfuse as needed. 8. Chronic hyponatremia Continues to have borderline low Na+ Continue 1500 cc fluid restriction Monitor labs. 9. Atrial fibrillation Rate in good control on amiodarone 200 mg BID Restart AC when ok with neurosurg., but per nsg. they (Dr. Sebastian) are deferring decision to restart up to us. Dr. Tafoya contacted to discuss, pros and cons discussed of restarting or stopping this med. Discussed with Ximena, she is unsure what she wants to do in regards to AC. Will try to contact HCP to discuss as well. was on eliquis 2.5 bid Monitor HR and bleeding risk. 10. Chronic constipation Still with constipation. Remains on qid and prn oxycodone Currently on lactulose to 30 ml qd, cola ce 100 mg bid and senna 2 tabs daily Changed senna and colace to senna plus 2 tabs daily Monitor bowels and adjust meds prn. 11. Subdural hematoma Stable. Neurosurg did not request f/u Monitor for neuro changes. Pros and cons of restarting AC discussed with Ximena, and she is unsure what she wants to do. Will also try to discuss with HCP. 12. Fracture of superior pubic ramus Continue PT/OT as ordered Continue oxycodone 2.5 mg q 6 hours WA a nd BID prn, APAP 975 mg TID, gabapentin 200 mg qhs and lidocaine patch to right hip qd, and lidocaine 4% OTC patch to low back on q am, off q pm. Monitor pain control. F/U with ortho as planned. 13. Fracture of inferior pubic ramus As above. 14. Hypothyroidism Continue levothyroxine 75 mcg qd Monitor TSH yearly 15. Chronic tremor see above, trialing rytary per [...] Code Code System Name Reaction Severity Onset 968541 RxNorm Bactrim ? ? ? 0178618 RxNorm Dabigatran Etexilate ? ? ? 105128 RxNorm Dexlansoprazole ? ? ? 665748 RxNorm Dilaudid ? ? ? 3640 RxNorm Doxycycline ? ? ? 6211 RxNorm Lactose ? ? ? 064904 RxNorm Moxifloxacin ? ? ? 71507 RxNorm Vancomycin ? ? ? Notes: egg [...] zoster live 11/02/2010 Notes: rec'd from PCP 3/30, flu vax re fused per PCC Social History Tobacco Smoking Status Former Smoker Notes: quit 20 yrs ago Has tobacco cessation counseling N Notes: n/a as pt no longer been provided? smokes What is your code status? DNI Do you have a medical power of Y senior attorney? What was the date of your most 03/03/2022 recent tobacco screening? Do you have an advanced directive? Y Note s: CPR ok, DNI ok hospital Do you use any illicit or N recreational drugs? Where do you live? Apartment Notes: ILF at [facility] What is your relationship status? What is your level of alcohol None consumption? Do you have an out of hospital DNR? N Legal Guardian? N Do you or have you ever used any N other forms of tobacco or nicotine? Functional Status Unknown. Past Encounters 04/25/2022 Myelodysplastic Syndrome (Clinical); Par kinson's Disease; Chronic Obstructive Lung Disease; Acute Low Back Pain; Orthostatic Hypotension; Nausea; Anemia; Chronic Hyponatremia; Atrial Fibrillation; Chron ic Constipation; Subdural Hematoma; Frac ture of Superior Pubic Ramus; Fracture of Inferior Pubic Ramus; Hypothyroidism; Chronic Tremor Lucila Engle MANAGER [address]IG[address]: [address] [place] [phone], Ph. 04/20/2022 Myelodysplastic Syndrome (Clinical); Par kinson's Disease; Acute Low Back Pain; Nausea; Anemia; Chronic Constipation; Subdural Hematoma; Fracture of Superior Pubic Ramus; Fracture of Inferior Pubic Ramus ; Atrial Fibrillation; Hypothyroidism; O rthostatic Hypotension; Chronic Hyponatremia; Chronic Tremor Lucila Engle MANA[address]: [address] [place] [address], Ph. 04/18/2022 Myelodysplastic Syndrome (Clinical); [place] sea; Anemia; Chronic Constipation; Parkinson's Disease; Subdural Hematoma; Fracture of Superior Pubic Ramus; Fracture of Inferior Pubic Ramus; Atrial Fibrillation ; Hypothyroidism; Orthostatic Hypotensio n; Chronic Hyponatremia Lucila Engle MANAGER [address]: [address] [place] [phone], Ph. 04/10/2022 Myelodysplastic Syndrome (Clinical); [place]; Chronic Constipation; Parkinson's Disease; Subdural Hematoma; Fracture of Superior Pubic Ramus; Fracture of Inferior Pubic Ramus; Atrial Fibrillation; Hypoth yroidism; Orthostatic Hypotension; Chron ic Hyponatremia Marija Morrow MD: [address], [place] [address], Ph. 04/07/2022 Anemia; Parkinson's Disease LEEANN ChiuP: [address], [place] [address], Ph. 04/06/2022 Anemia; Acute Constipation; Fracture of Superior Pubic Ramus; Atrial Fibrillation; Hypothyroidism; Orthostatic Hypotension; Myelodysplastic Syndrome (Clinical); Chronic Hyponatremia Lucila Engle MANA[address]: [address], [place] [address], Ph. 04/03/2022 Anemia; Acute Constipation LEEANN ChiuP: [address], [place] [address], Ph. 03/31/2022 Acute Constipation LEEANN ChiuP: [address], [place] [address], Ph. 03/30/2022 Fracture of Superior Pubic Ramus Lucila Engle MANA[address]: [address], [place] [address], Ph. 03/27/2022 Anemia; Chronic Hyponatremia LEEANN ChiuP: [address], [place] [address], Ph. History of Present Illness Note: <div>Ximena is seen today for an acute visit. </div><div>
</div>&l t;div>Due to anemia (known MDS, followed by Hematology), CBCs are being followed weekly. She was transfused a few weeks ago with 1 unit PRBCs. She had follow up with Dr. Cantu last week with recs. everett with luspatercept and weekly CBC. Hgb 7.3 last week, 6.[address] Cantu's office notified of low Hgb., will forward hard copy of labs when available from the printer. </div>& lt;div>
</div><div>Due to constipation, laxatives increased now on lactulose and senna-plus 2 tabs bid. No complaints of constipation. </div><div>
</div&g t;<div>She saw Neuro yesterday (Tiffanie Cheng [address], [phone]) who recommended trialing Rytary 23.75/95 mg 1 tid x 1 wk, then increase to 2 tabs tid. Ximena is agreeable to starting this. Prior auth request sent from pharmacy; will cover ER tab, not ordered tab. Will have nsg. check with Neuro if they are ok changing to a different formulation. </div><div>
</div><div>Upon exam, Ximena is in bed, just finished lunch. Did feel good earlier today when in her chair, felt a little woozy, better now that she is back in bed. Last BP low 93/63. Remains on midodrine for low BP. Also states she isn't eating or drinking as well as she should. Dislikes the food here.</div><div>
</div><div>Back pain better; x ray checked last week, no VCF, acute injury on films. </div><div>
</div><div>Remains off AC for now; discussed pros and cons of restarting AC, and she is not sure what she would like to do at this time. Will reach out to HCP to discuss as well.</div><div>
</div><div>Seen by Pulmonary, Dr. Perez, mod. COPD on CT - used to be on Trelegy, now recommending to start Anoro 1 inh. daily </div><div>
</div><div>
</div><div>Her PMH includes Afib, COPD, myelodysplastic syndrom with pancytopenia, GERD, hypothyro idism, Parkinson's, RLS, s/p bilateral TKR, s/p SDH [...] 141, na 139, k 4.2, bun 24, air conditioning installer supervisor 0.95, sabi 7.4</div><div>03/20/22 na 139, k 3.5, bun 28, air conditioning installer supervisor 0.88, sabi 7.5</div><div>03/27/22 wbc 3.3 , hgb 7.1, hct 21.9, plt 149, na 134, k 4, bun 13, air conditioning installer supervisor 0.78, sabi 8</ div><div>04/03/22 wbc 4, hgb 7.3, hct 22.3, plt 207, na 132, k 4.5 , bun 17, air conditioning installer supervisor 0.82, sabi 8</div><div>04/10/22-WBC-3.4, H/H-6.6/20.9, plts-177, BUN/Cr-16/0.97, GFR-55, Na+1 31, K+4.5, glu-61</div><div>04/17: wbc 3.1, hgb 7.3, plt 152. Na 13 0, K 3.8, Bun13, Cr. 0.74, glu 65. </div><div>04/25: wbc 2.7, hgb 6.5, plt 141. </div>
--- OUTSIDE RECORDS SUMMARY | 2022-06-19 00:24 | XMS_ITS | Encounter Summary ---
:1935 Author Care Team Providers Name Role Phone Art Ortiz Primary Care Provider [phone] Delonte Anglin - 4th Floor OTHER [phone] Reason for Visit Acute Rounding Visit Assessment and Plan 1. Anemia follows with Dr Alondra parks through [facility] continue to monitor labs is getting anemia injections through the re hgb low but not symptomatic and where sh e has been monitor for need to transfuse 2. Acute constipation colace 100 mg bid senna [...] Pressure 5 ft 6 in 116/71 mm[Hg] Results Lab Results None recorded. Allergies Code Code System Name Reaction Severity Onset 274718 RxNorm Bactrim ? ? ? 0429499 RxNorm Dabigatran Etexilate ? ? ? 124538 RxNorm Dexlansoprazole ? ? ? 692660 RxNorm Dilaudid ? ? ? 3640 RxNorm Doxycycline ? ? ? 6211 RxNorm Lactose ? ? ? 595333 RxNorm Moxifloxacin ? ? ? 33617 RxNorm Vancomycin ? ? ? Notes: egg [...] you have a medical power of Y regulatory attorney? What was the date of your [...] do you live? Apartment Notes: ILF at [facility] What is your relationship status? Functional Status Unknown. Past Encounters 04/03/2022 Anemia; Acute Constipation GUILLERMO Chiu: [address] [place] [address], Ph. 03/31/2022 Acute Constipation GUILLERMO Chiu: [address] [place] [address], Ph. 03/30/2022 Fracture of Superior Pubic Ramus Lucila Engle GROUND CREW LINESMAN: [address] [place], [place] [address], Ph. 03/27/2022 Anemia; Chronic Hyponatremia GUILLERMO Chiu: [address] [place], [place] [address], Ph. 03/24/2022 Atrial Fibrillation; Chronic Obstructive Lung Disease; Hypothyroidism; Orthostatic Hypotension; Myelodysplastic Syndrome (Clinical); Parkinson's Disease; Restless Legs; Chronic Hyponatremia; Fall; Anemi a; Chronic Tremor; Gastroesophageal Refl ux Disease without Esophagitis; Fracture of Single Pubic Ramus GUILLERMO Chiu: [address] [place], [place] [address], Ph. 03/20/2022 Anemia; Gastroesophageal Reflux Disease without Esophagitis GUILLERMO Chiu: [address] [place] [address], Ph. 03/13/2022 Anemia; Gastroesophageal Reflux Disease without Esophagitis GUILLERMO Chiu: [address] [place] [address], Ph. 03/10/2022 Urinary Tract Infectious Disease; Anemia ; Myelodysplastic Syndrome (Clinical); Fracture of Single Pubic Ramus GUILLERMO Chiu: [address] [place] [address], Ph. 03/07/2022 Chronic Hyponatremia; Fracture of Single Pubic Ramus; Atrial Fibrillation GUILLERMO Chiu: [address] [place] [address], Ph. 03/03/2022 Subdural Hematoma; Fracture of Superior Pubic Ramus; Fracture of Inferior Pubic Ramus; Myelodysplastic Syndrome (Clinical); Atrial Fibrillation; Chronic Obstructive Lung Disease; Hypothyroidism; Orthost atic Hypotension; Parkinson's Disease; R estless Legs; Chronic Hyponatremia; Fall Marija Morrow MD: [address] [place] [address], Ph. History of Present Illness Note: <div>A 87 year old female being seen for a acute rounding visit. Patient is noted to have a low hgb/hct but is where she usually is. She has no symptoms at this time. She receives shots at heme/onc. She also notes that she has been moving her bowels more lately and feels better. Will continue to monitor. </div> Review of [...] 141, na 139, k 4.2, bun 24, american studies professor 0.95, sabi 7.4</div><div>03/20/22 na 139, k 3.5, bun 28, american studies professor 0.88, sabi 7.5</div><div>03/27/22 wbc 3.3 , hgb 7.1, hct 21.9, plt 149, na 134, k 4, bun 13, american studies professor 0.78, sabi 8</ div><div>04/03/22 wbc 4, hgb 7.3, hct 22.3, plt 207, na 132, k 4.5 , bun 17, american studies professor 0.82, sabi 8</div>
--- OUTSIDE RECORDS SUMMARY | 2022-06-19 00:24 | XMS_ITS | Encounter Summary ---
:1935 Author Care Team Providers Name Role Phone Art Ortiz Primary Care Provider [phone] [place] [facility] Anglin - 4th Floor OTHER [phone] Reason for Visit Acute Rounding Visit Assessment and Plan 1. Anemia Known MDS, followed by Heme pt. feels symptomatic with weakness Hgb 7.3 earlier in the week Call placed to Dr Cantu to discuss baseli ne/tx./transfusion - they will arrange a transfusion and update the nurses with specific details of transfusion when available. Pt. aware of these plans, nsg. to update family as well re: specifics of t ransfusion. 2. Acute constipation Continue meds: colace 100 mg bid senna 2 tabs q hs and 2 tabs qd prn lactulose 15 mls qod monitor need to increase medications 3. Fracture of superior pubic ramus Continue PT OT Continue current meds. Added lidocaine 4% OTC patch to low back on q am, off q pm. Monitor pain, adjust meds prn. 4. Atrial fibrillation continue amiodarone 200 mg bid not on AC at this time monitor rate and rhythm 5. Hypothyroidism levothyroxine 75 mcg qd monitor TSH 6. Orthostatic hypotension midodrine 2.5 mg bid monitor bps 7. Myelodysplastic syndrome (clinical) follows with heme/onc monitor 8. Chronic hyponatremia 1500 cc fluid restrict monitor labs Discussion Note: None recorded.Patient educational handouts: No [...] Pressure 5 ft 6 in 109/67 mm[Hg] Results Lab Results None recorded. Allergies Code Code System Name Reaction Severity Onset 223251 RxNorm Bactrim ? ? ? 0291326 RxNorm Dabigatran Etexilate ? ? ? 282325 RxNorm Dexlansoprazole ? ? ? 496549 RxNorm Dilaudid ? ? ? 3640 RxNorm Doxycycline ? ? ? 6211 RxNorm Lactose ? ? ? 290175 RxNorm Moxifloxacin ? ? ? 77551 RxNorm Vancomycin ? ? ? Notes: egg [...] you have a medical power of Y clinical pharmacy coordinator? What was the date of your most [...] do you live? Apartment Notes: ILF at [facility] What is your relationship status? Functional Status Unknown. Past Encounters 04/06/2022 Anemia; Acute Constipation; Fracture of Superior Pubic Ramus; Atrial Fibrillation; Hypothyroidism; Orthostatic Hypotension; Myelodysplastic Syndrome (Clinical); Chronic Hyponatremia Lucila Engle BOTTOM FILLER: [address], [place] [address], Ph. 04/03/2022 Anemia; Acute Constipation GUILLERMO Chiu: [address], [place] [address], Ph. 03/31/2022 Acute Constipation GUILLERMO Chiu: [address], [place] [address], Ph. 03/30/2022 Fracture of Superior Pubic Ramus Lucila Engle NP: [address], [place] [address], Ph. 03/27/2022 Anemia; Chronic Hyponatremia GUILLERMO Chiu: [address], [place] [address], Ph. 03/24/2022 Atrial Fibrillation; Chronic Obstructive Lung Disease; Hypothyroidism; Orthostatic Hypotension; Myelodysplastic Syndrome (Clinical); Parkinson's Disease; Restless Legs; Chronic Hyponatremia; Fall; Anemi a; Chronic Tremor; Gastroesophageal Refl ux Disease without Esophagitis; Fracture of Single Pubic Ramus GUILLERMO Chiu: [address], [place] [address], Ph. 03/20/2022 Anemia; Gastroesophageal Reflux Disease without Esophagitis GUILLERMO Chiu: [address], [place] [address], Ph. 03/13/2022 Anemia; Gastroesophageal Reflux Disease without Esophagitis Alejandrina Siegel, WOMEN'S LACROSSE COACH: [address], [place], [place] [address], Ph. 03/10/2022 Urinary Tract Infectious Disease; Anemia ; Myelodysplastic Syndrome (Clinical); Fracture of Single Pubic Ramus LEEANN ChiuP: [address], [place] [address], Ph. 03/07/2022 Chronic Hyponatremia; Fracture of Single Pubic Ramus; Atrial Fibrillation LEEANN ChiuP: [address], [place], [place] [address], Ph. History of Present Illness Note: <div>Ximena is seen today for an acute visit.</div><div>
</div>&lt ;div>Staff is reporting increased weakness with activity. </div><div>Known MDS, ? worsening anemia</div><div>
</div><div>Upon exam, Ximena is in bed, alert, NAD. She feels ok except for being tired, and she thinks she needs a blood transfusion. She saysshe usually gets transfused q other month or so, thinks she gets transfused for hgb<8, but not sure. Denies feeling dizzy, no SOB, CP. Intake fair, no GI upset. Laxatives recently increased due to constipation. </div><div>Call placed to Dr. Cantu to discuss anemia and transfusion.</div> Review of Systems ? Notes: <div>All others reviewed and negative unless otherwise stated in the HPI.</div> Physical Exam ? General Adult Exam Reported By: Patient Constitutional: General Appearance: well-dev eloped; thin. Level of Distress: NAD. Ambulation: limited ambulati on, ambulation with walker; laying in bed Psychiatric: Insight: good judgement. [...] ended, no tenderness Musculoskeletal:: Extremities: no cyanosis, ed pérez. Joints, Bones, and Muscles (normal) normal movement of all extremities Neurologic: Cranial Nerves: grossly inta ct Skin: Inspection and palpation: no rash Notes: <div>Labs </div><div>03/02-WB C-2.4, H/H-8.3/24.5, plts-123, BUN/Cr-22/0.84, GFR>60, N a+132, K+4.8, glu-73</div><div>03/09/22 wbc 3, hgb 7.5, hct 23.7, pl t 141, na 139, k 4.2, bun 24, flight engineer helicopter 0.95, sabi 7.4</div><div>03/20/22 na 139, k 3.5, bun 28, flight engineer helicopter 0.88, sabi 7.5</div><div>03/27/22 wbc 3.3 , hgb 7.1, hct 21.9, plt 149, na 134, k 4, bun 13, flight engineer helicopter 0.78, sabi 8</ div><div>04/03/22 wbc 4, hgb 7.3, hct 22.3, plt 207, na 132, k 4.5 , bun 17, flight engineer helicopter 0.82, sabi 8</div>
--- OUTSIDE RECORDS SUMMARY | 2022-06-19 00:24 | XMS_ITS | Encounter Summary ---
:1935 Author Care Team Providers Name Role Phone Art Ortiz Primary Care Provider [phone] [place] Anglin - 4th Floor OTHER [phone] Reason for Visit Routine Rounding Assessment and Plan 1. Atrial fibrillation amiodarone 200 mg bid monitor rate and rhythm 2. Chronic obstructive lung disease singulair 10 mg qd followed by Dr. Perez monitor 3. Hypothyroidism levothyroxine 75 mcg qd monitor TSH 4. Orthostatic hypotension midodrine 2.5 mg bid monitor bps 5. Myelodysplastic syndrome (clinical) follows with heme/onc monitor 6. Parkinson's disease primidone 100 mg q hs gabapentin 200 mg q hs monitor 7. Restless legs ropinirole 1.5 mg tid monitor 8. Chronic hyponatremia 1500 cc fluid restrict monitor labs 9. Fall PT/OT eval and treat monitor for safety 10. Anemia follows with Dr Alondra parks through [facility] she is s/p transfusion and doing well had a appt for her injection for anemia this week continue to monitor labs 11. Chronic tremor primidone 100 mg q hs monitor 12. Gastroesophageal reflux disease wit hout esophagitis omeprazole 20 mg qd monitor for symptoms 13. Fracture of single pubic ramus tylenol 975 mg q 8 hrs oxycodone 2.5 mg qid and bid prn lidocaine right hip qd continue to work with therapy WBAT to right lower extremity with walke r monitor pain follow with ortho in 2 months Discussion Note: None recorded.Patient educational handouts: No [...] Pressure 5 ft 6 in 125/60 mm[Hg] Results Lab Results None recorded. Allergies Code Code System Name Reaction Severity Onset 906156 RxNorm Bactrim ? ? ? 2597132 RxNorm Dabigatran Etexilate ? ? ? 269661 RxNorm Dexlansoprazole ? ? ? 533848 RxNorm Dilaudid ? ? ? 3640 RxNorm Doxycycline ? ? ? 6211 RxNorm Lactose ? ? ? 108316 RxNorm Moxifloxacin ? ? ? 30900 RxNorm Vancomycin ? ? ? Notes: egg [...] you have a medical power of Y traffic law attorney? What was the date of your most 03/03/2022 recent tobacco screening? Do you have an advanced directive? Y Note s: CPR ok, DNI ok hospital Do you use any illicit or N recreational drugs? Where do you live? Apartment Notes: ILF at [facility] What is your relationship status? What is your level of alcohol None consumption? Do you have an out of hospital DNR? N Legal Guardian? N Do you or have you ever used any N other forms of tobacco or nicotine? Functional Status Unknown. Past Encounters 03/24/2022 Atrial Fibrillation; Chronic Obstructive Lung Disease; Hypothyroidism; Orthostatic Hypotension; Myelodysplastic Syndrome (Clinical); Parkinson's Disease; Restless Legs; Chronic Hyponatremia; Fall; Anemi a; Chronic Tremor; Gastroesophageal Refl ux Disease without Esophagitis; Fracture of Single Pubic Ramus GUILLERMO Chiu: [address] [place] [address], Ph. 03/20/2022 Anemia; Gastroesophageal Reflux Disease without Esophagitis GUILLERMO Chiu: [address] [place] [address], Ph. 03/13/2022 Anemia; Gastroesophageal Reflux Disease without Esophagitis GUILLERMO Chiu: [address] [place] [address], Ph. 03/10/2022 Urinary Tract Infectious Disease; Anemia ; Myelodysplastic Syndrome (Clinical); Fracture of Single Pubic Ramus GUILLERMO Chiu: [address] [place] [address], Ph. 03/07/2022 Chronic Hyponatremia; Fracture of Single Pubic Ramus; Atrial Fibrillation GUILLERMO Chiu: [address] [place] [address], Ph. 03/03/2022 Subdural Hematoma; Fracture of Superior Pubic Ramus; Fracture of Inferior Pubic Ramus; Myelodysplastic Syndrome (Clinical); Atrial Fibrillation; Chronic Obstructive Lung Disease; Hypothyroidism; Orthost atic Hypotension; Parkinson's Disease; R estless Legs; Chronic Hyponatremia; Fall Marija Morrow MD: [address] [place] [address], Ph. 03/02/2022 Subdural Hematoma; Fracture of Single Pu bic Ramus; Myelodysplastic Syndrome (Clinical); Atrial Fibrillation; Chronic Obstructive Lung Disease; Hypothyroidism; Orthostatic Hypotension; Parkinson's Disease; Restless Legs; Chronic Hyponatremia; Fall Delilah Stock: [address] [place] [address], Ph. History of Present Illness Note: <div>A 87 year old female being seen for a routine rounding visit (30 days). Patient is notedto be doing well. She has had a blood transfusion and a a injection for anemia. She states she eats and drinks fair. No concerns with bowel or bladder. Staff notes that she has been stable. Goal is still for her to go home according to her. </div> Review of Systems ? Notes: <div>All [...] 141, na 139, k 4.2, bun 24, banking assistant 0.95, sabi 7.4</div><div>03/20/22 na 139, k 3.5, bun 28, banking assistant 0.88, sabi 7.5</div>
--- OUTSIDE RECORDS SUMMARY | 2022-06-19 00:24 | XMS_ITS | Encounter Summary ---
:1935 Author Care Team Providers Name Role Phone Art Ortiz Primary Care Provider [phone] Barrytonovidio Anglin - 4th Floor OTHER [phone] Reason for Visit Acute Rounding Visit Assessment and Plan 1. Anemia follows with Dr Alondra parks through [facility] she is s/p transfusion and doing well she has a appt for her injection for ane toby this week continue to monitor labs 2. Gastroesophageal reflux disease with out esophagitis omeprazole 20 mg qd monitor for symptoms Discussion Note: None recorded.Patient educational handouts: No [...] Pressure 5 ft 6 in 99/60 mm[Hg] Results Lab Results None recorded. Allergies Code Code System Name Reaction Severity Onset 269374 RxNorm Bactrim ? ? ? 7433801 RxNorm Dabigatran Etexilate ? ? ? 912681 RxNorm Dexlansoprazole ? ? ? 072608 RxNorm Dilaudid ? ? ? 3640 RxNorm Doxycycline ? ? ? 6211 RxNorm Lactose ? ? ? 064275 RxNorm Moxifloxacin ? ? ? 50394 RxNorm Vancomycin ? ? ? Notes: egg [...] you have a medical power of Y district attorney? What was the date of your [...] do you live? Apartment Notes: ILF at [facility] What is your relationship status? Functional Status Unknown. Past Encounters 03/20/2022 Anemia; Gastroesophageal Reflux Disease without Esophagitis GUILLERMO Chiu: [address] [place] [address], Ph. 03/13/2022 Anemia; Gastroesophageal Reflux Disease without Esophagitis GUILLERMO Chiu: [address] [place] [address], Ph. 03/10/2022 Urinary Tract Infectious Disease; Anemia ; Myelodysplastic Syndrome (Clinical); Fracture of Single Pubic Ramus GUILLERMO Chiu: [address] [place] [address], Ph. 03/07/2022 Chronic Hyponatremia; Fracture of Single Pubic Ramus; Atrial Fibrillation GUILLERMO Chiu: [address] [place] [address], Ph. 03/03/2022 Subdural Hematoma; Fracture of Superior Pubic Ramus; Fracture of Inferior Pubic Ramus; Myelodysplastic Syndrome (Clinical); Atrial Fibrillation; Chronic Obstructive Lung Disease; Hypothyroidism; Orthost atic Hypotension; Parkinson's Disease; R estless Legs; Chronic Hyponatremia; Fall Marija Morrow MD: [address] [facility] [place] [address], Ph. 03/02/2022 Subdural Hematoma; Fracture of Single Pu bic Ramus; Myelodysplastic Syndrome (Clinical); Atrial Fibrillation; Chronic Obstructive Lung Disease; Hypothyroidism; Orthostatic Hypotension; Parkinson's Disease; Restless Legs; Chronic Hyponatremia; Fall Delilah Diehl : [address] [facility] [place] [address], Ph. History of Present Illness Note: <div>A 87 year old female being seen for a acute rounding visit. Patient is noted to be doingwell s/p transfusion. She had one unit of PRBCs without difficulty. She notes that she watched golf all weekend. She has a appt this week for her anemia injection. Will continue to monitor. </div> Review of [...] 141, na 139, k 4.2, bun 24, cloth covered helmet puller 0.95, sabi 7.4</div><div>03/20/22 na 139, k 3.5, bun 28, cloth covered helmet puller 0.88, sabi 7.5</div>
--- OUTSIDE RECORDS SUMMARY | 2022-06-19 00:24 | XMS_ITS | Encounter Summary ---
:1935 Author Care Team Providers Name Role Phone Art Ortiz Primary Care Provider [phone] Armaovidio Anglin - 4th Floor OTHER [phone] Reason for Visit Acute Rounding Visit Assessment [...] - f orward results Dr. Cantu, [address] [facility], 2. Parkinson's disease Seen by Neuro yesterday, and due to comp laints of increased tremors, rytary 23.75/95 1 tid x 1 wk, then increase to 2 tid if salena. 1 tab ok. Continue primidone 100 mg qhs, gabapenti n 200 mg qhs, and Requip 1.5 mg TID. PT/OT as needed. Had F/U with neuro, Tiffanie Cheng NP, [address] [facility], [address], . Uncertain if follow up appt. made at that time. 3. Acute low back pain New, worsening. Check X ray LS spine On APAP tid and oxy prn Add lidocaine patch on q am, off q pm. 4. Nausea and gagging, reported to be a chronic i ssue. PRN zofran available, keep bowels moving , light diet and advance as salena. monitor GI consult prn. 5. Anemia As above. Continue iron infusions through Dr. Cantu and transfuse as needed. 6. Chronic constipation Still with constipation. Remains on qid and prn oxycodone Currently on lactulose to 30 ml qd, cola ce 100 mg bid and senna 2 tabs daily Changed senna and colace to senna plus 2 tabs daily Monitor bowels and adjust meds prn. 7. Subdural hematoma Stable. Neurosurg did not request f/u Monitor for neuro changes. 8. Fracture of superior pubic ramus Continue PT/OT as ordered Continue oxycodone 2.5 mg q 6 hours WA a nd BID prn, APAP 975 mg TID, gabapentin 200 mg qhs and lidocaine patch to right hip qd, and lidocaine 4% OTC patch to low back on q am, off q pm. Monitor pain control. F/U with ortho as planned. 9. Fracture of inferior pubic ramus As above. 10. Atrial fibrillation Rate in good control on amiodarone 200 mg BID Restart AC when ok with neurosurg., but per nsg. they (Dr. Sebastian) are deferring decision to restart up to us. Dr. Tafoya contacted to discuss, awaiting call back. wa son eliquis 2.5 bid Monitor HR and bleeding risk. 11. Hypothyroidism Continue levothyroxine 75 mcg qd Monitor TSH yearly 12. Orthostatic hypotension Continue midodrine 2.5 mg BID, hold for SBP>140 Monitor BP 13. Chronic hyponatremia Continues to have borderline low Na+ Continue 1500 cc fluid restriction Monitor labs. 14. Chronic tremor see above, trialing rytary per [...] Pressure 5 ft 6 in 135/69 mm[Hg] Results Lab Results None recorded. Allergies Code Code System Name Reaction Severity Onset 884421 RxNorm Bactrim ? ? ? 9710695 RxNorm Dabigatran Etexilate ? ? ? 022320 RxNorm Dexlansoprazole ? ? ? 752716 RxNorm Dilaudid ? ? ? 3640 RxNorm Doxycycline ? ? ? 6211 RxNorm Lactose ? ? ? 429919 RxNorm Moxifloxacin ? ? ? 99175 RxNorm Vancomycin ? ? ? Notes: egg [...] you have a medical power of Y critical care unit nurse? What was the date of your most [...] do you live? Apartment Notes: ILF at [facility] What is your relationship status? Functional Status Unknown. Past Encounters 04/20/2022 Myelodysplastic Syndrome (Clinical); Par kinson's Disease; Acute Low Back Pain; Nausea; Anemia; Chronic Constipation; Subdural Hematoma; Fracture of Superior Pubic Ramus; Fracture of Inferior Pubic Ramus ; Atrial Fibrillation; Hypothyroidism; O rthostatic Hypotension; Chronic Hyponatremia; Chronic Tremor Lucila Engle [employer]ERING AND EVENTS MANAGER: [address], [place] [address], Ph. 04/18/2022 Myelodysplastic Syndrome (Clinical); Adam sea; Anemia; Chronic Constipation; Parkinson's Disease; Subdural Hematoma; Fracture of Superior Pubic Ramus; Fracture of Inferior Pubic Ramus; Atrial Fibrillation ; Hypothyroidism; Orthostatic Hypotensio n; Chronic Hyponatremia Lucila Engle [employer]ERING AND EVENTS MANAGER: [address], [place] [address], Ph. 04/10/2022 Myelodysplastic Syndrome (Clinical); Ane toby; Chronic Constipation; Parkinson's Disease; Subdural Hematoma; Fracture of Superior Pubic Ramus; Fracture of Inferior Pubic Ramus; Atrial Fibrillation; Hypoth yroidism; Orthostatic Hypotension; Chron ic Hyponatremia Marija Morrow MD: [address], [place] [address], Ph. 04/07/2022 Anemia; Parkinson's Disease GUILLERMO Chiu: [address], [facility] [place] [address], Ph. 04/06/2022 Anemia; Acute Constipation; Fracture of Superior Pubic Ramus; Atrial Fibrillation; Hypothyroidism; Orthostatic Hypotension; Myelodysplastic Syndrome (Clinical); Chronic Hyponatremia Lucila Engle [employer]ERING AND EVENTS MANAGER: [address], [place] [address], Ph. 04/03/2022 Anemia; Acute Constipation GUILLERMO Chiu: [address], [place] [address], Ph. 03/31/2022 Acute Constipation GUILLERMO Chiu: [address], [facility] [place] [address], Ph. 03/30/2022 Fracture of Superior Pubic Ramus Lucila Engle [employer]ER[employer] EVENTS MANAGER: [address], [place] [address], Ph. 03/27/2022 Anemia; Chronic Hyponatremia LEEANN ChiuP: [address], [place] [address], Ph. 03/24/2022 Atrial Fibrillation; Chronic Obstructive Lung Disease; Hypothyroidism; Orthostatic Hypotension; Myelodysplastic Syndrome (Clinical); Parkinson's Disease; Restless Legs; Chronic Hyponatremia; Fall; Anemi a; Chronic Tremor; Gastroesophageal Refl ux Disease without Esophagitis; Fracture of Single Pubic Ramus LEEANN ChiuP: [address], [place] [address], Ph. 03/20/2022 Anemia; Gastroesophageal Reflux Disease without Esophagitis LEEANN ChiuP: [address] [place] [address], Ph. History of Present Illness Note: <div>Ximena is seen today for an acute visit. </div><div>
</div>&l t;div>Due to anemia (known MDS, followed by Hematology), she was recently transfused with 1 unit PRBCs. She has follow up with Dr. Cantu earlier in the week, to continue with luspatercept and weekly CBC. Hgb 7.3. </div><div>
</div><div>Due to constipation, laxatives increased now on lactulose and senna-plus 2 tabs bid. </div><div>
</div><div>She saw Neuro yesterday (Tiffanie Cheng [employer]ERING [employer] EVENTS MANAGER, [phone]) who recommended trialing Rytary 23. 75/95 mg 1 tid x 1 wk, then increase to 2 tabs tid. Ximena is agreeable to starting this. </div><div>
</div><div>Upon exam, Ximena is in bed eating lunch. She says she feels ok, but is complaining of worsening low back pain, new, started after reaching for her meds from the nurse a few days ago. Describes pain as sharp, especially with movement. Goes across her back. </div><div>Denies feeling weak of dizzy. No SOB, CP, GIupset. Taking po. </div>< div>
</div><div>
</div><div>Her PMH includes Afib, COPD, myelodysplastic [...] and Muscles normal movement of all extre mities; points to low back below waistline as area of most pa in Neurologic: Cranial Nerves: grossly inta ct Skin: Inspection and palpation: no rash, no ulcer Notes: <div>Labs </div><div>03/02-WB C-2.4, H/H-8.3/24.5, plts-123, BUN/Cr-22/0.84, GFR>60, N a+132, K+4.8, glu-73</div><div>03/09/22 wbc 3, hgb 7.5, hct 23.7, pl t 141, na 139, k 4.2, bun 24, theatrical agent 0.95, sabi 7.4</div><div>03/20/22 na 139, k 3.5, bun 28, theatrical agent 0.88, sabi 7.5</div><div>03/27/22 wbc 3.3 , hgb 7.1, hct 21.9, plt 149, na 134, k 4, bun 13, theatrical agent 0.78, sabi 8</ div><div>04/03/22 wbc 4, hgb 7.3, hct 22.3, plt 207, na 132, k 4.5 , bun 17, theatrical agent 0.82, sabi 8</div><div>04/10/22-WBC-3.4, H/H-6.6/20.9, plts-177, BUN/Cr-16/0.97, GFR-55, Na+1 31, K+4.5, glu-61</div><div>04/17: wbc 3.1, hgb 7.3, plt 152. Na 13 0, K 3.8, Bun13, Cr. 0.74, glu 65. </div>
--- NOTE | 2022-06-19 01:18 | PM.IMHP ---
History of Present Illness Date of Service: 06/19/22 Chief Complaint: Chest pain This is a 87-year-old female resident of [facility] with pertinent history of atrial fibrillation, essential tremor, Parkinson's disease, hypothyroidism was sent from [facility] for evaluation of left-sided chest discomfort. Patient states it started 1 day ago when patient was being transferred from bed to chair. Although patient denies abuse, she believes that the transfer was handled roughly and patient has been experiencing left chest wall pain since which has been constant and worse with movement. Tenderness present. Patient also complains of productive cough, unclear duration. Is not able to say if she has had fevers or chills. On review of systems, patient states she has been having generalized weakness/fatigue ability and dyspnea on exertion over the last few days. Patient is a poor historian and is unable to give specifics. In the emergency department, imaging revealed left-sided pneumonia. Also her hemoglobin was low at 7.3 Review of Systems Constitutional: Constitutional: Reports fatigue and Reports weakness Respiratory: Respiratory: Reports cough and Reports pain with cough Gastrointestinal: Gastrointestinal: Reports no additional gastrointestinal complaints Genitourinary: Genitourinary: Reports no additional female genitourinary complaints Neurologic: Reports weakness Endocrine: Endocrine: Reports fatigue [facility] Medical History (Updated 06/19/22 @ 01:41 by Burt Yung MD) Abnormal brain MRI Essential tremor (~06/19/22) Obstructive sleep apnea Parkinson's disease Family History Mother Alzheimer's dementia Diverticulitis Father Cancer Surgical History Hx of cholecystectomy Hx of total knee replacement Social History Alcohol intake: never Patient Tobacco Use Status: Former Tobacco user Quit Date: 1991 Use of substances other than those prescribed or required for medical reasons: No Advance Directives: No Meds Allergies Allergy/AdvReac Type Severity Reaction Status Date / Time vancomycin Allergy Mild unknown Verified 04/19/22 13:19 Active Medications: Current Medications Acetaminophen (Acetaminophen 325 Mg Tablet) 650 mg PO Q6H PRN PRN Reason: Pain, Mild (Pain Scale 1-3) Enoxaparin Sodium (Enoxaparin Sodium 40 Mg/0.4 Ml Syringe) 40 mg SUBCUT Q24H [facility] Ceftriaxone Sodium 1 gm/ (Sodium Chloride) 50 mls @ 100 mls/hr IV DAILY [facility] Azithromycin 500 mg/ Sodium (Chloride) 250 mls @ 125 mls/hr IV DAILY [facility] Melatonin (Melatonin 3 Mg Tablet) 6 mg PO BEDTIME PRN PRN Reason: Insomnia Ondansetron HCl (Ondansetron Hcl 4 Mg/2 Ml Vial) 4 mg IVPUSH Q8H PRN PRN Reason: Nausea and Vomiting Pharmacy Consult (Consult Rx Perform Med Rec) 1 each MISCELLANE ONCE PRN PRN Reason: Consult order Sodium Chloride (0.9 % Sodium Chloride Flush 3 Ml Syringe) 3 ml IVFLUSH QSHIFT [facility] Home Medications Medication Instructions Recorded Confirmed Last Taken Type primidone 50 mg tablet 100 mg PO BEDTIME 11/02/21 11/02/21 Unknown History amiodarone 200 mg tablet 200 mg PO BID 04/19/22 04/19/22 Unknown History gabapentin 100 mg capsule mg PO 04/19/22 04/19/22 Unknown History lactulose 10 gram/15 mL oral 10 g PO DAILY 04/19/22 04/19/22 Unknown History solution lactulose 10 gram/15 mL oral ml PO 04/19/22 04/19/22 Unknown History solution levothyroxine 75 mcg tablet 75 mcg PO DAILY 04/19/22 04/19/22 Unknown History lidocaine 5 % topical patch 2 patch topical DAILY 04/19/22 04/19/22 Unknown History midodrine 2.5 mg tablet 2.5 mg PO BID 04/19/22 04/19/22 Unknown History montelukast 10 mg tablet 10 mg PO DAILY 04/19/22 04/19/22 Unknown History omeprazole 20 mg capsule,delayed 20 mg PO DAILY 04/19/22 04/19/22 Unknown History release ondansetron 4 mg disintegrating 0 mg PO 04/19/22 04/19/22 Unknown History tablet oxycodone 5 mg tablet 5 mg PO TID PRN 04/19/22 04/19/22 Unknown History ropinirole 3 mg tablet 1.5 mg PO TID 04/19/22 04/19/22 Unknown History sennosides 8.6 mg capsule (senna) 8.6 mg PO BID 04/19/22 04/19/22 Unknown History Physical Exam Vital Signs and Narrative: Vital Signs: Last Vital Signs Temp 98.2 F 06/18/22 23:09 Pulse 83 06/18/22 23:09 Resp 14 06/18/22 23:09 BP 124/51 L 06/18/22 23:09 Pulse Ox 97 06/18/22 23:09 O2 Del Method 06/18/22 23:09 BMI result Body Mass Index 19.3 Elderly female lying in bed in no distress Left-sided chest wall tenderness present Neck supple, no JVD Regular rate and rhythm, S1-S2 heard Left-sided crackles appreciated Abdomen soft nontender, no guarding, no rigidity Patient is drowsy but awakens to verbal stimulus, oriented to self, place and time ; no focal motor weakness Psych: Normal mood No pedal edema Results Labs CBC and Chem 7: 06/18/22 22:39 06/18/22 22:39 Labs: Laboratory Results - last 24 hr 06/18/22 06/18/22 06/18/22 22:39 22:39 22:39 MCV 90.6 MCH 28.6 MCHC 31.6 RDW 19.4 H Plt Count 233 MPV 12.1 Immature Gran % (Auto) Cancelled Neut % (Auto) Cancelled Lymph % (Auto) Cancelled Wilkes % (Auto) Cancelled Eos % (Auto) Cancelled Baso % (Auto) Cancelled Lymph # (Auto) Cancelled Wilkes # (Auto) Cancelled Eos # (Auto) Cancelled Baso # (Auto) Cancelled Abs Immat Gran (auto) Cancelled Absolute Neuts (auto) Cancelled Absolute Nucleated RBC 0.020 H Nucleated RBC % (auto) 0.4 H Neutrophils % (Manual) 18 L Band Neutrophils % 2 L Lymphocytes % (Manual) 37 Monocytes % (Manual) 29 H Eosinophils % (Manual) 5 H Metamyelocytes % 5 Myelocytes % 3 Blast Cells % (Manual) 1 Abs Neuts (Manual) 1.0 L Lymphocytes # (Manual) 1.9 Monocytes # (Manual) 1.5 H Eosinophils # (Manual) 0.3 Metamyelocytes # 0.3 Myelocytes # 0.2 Blast Cells # 0.1 Nucleated RBCs 1 H WBC Morphology Comment DYS Platelet Estimate NORMAL Large Platelets PRESENT Plt Morphology Comment AGRANULAR RBC Morphology NOTED Hypochromasia 1+ (5-14) Microcytosis 1+ (5-14) Macrocytosis 1+ (5-14) Tear Drop Cells 1+ (0-2) Ovalocytes 1+ (5-14) Acanthocytes (Spur) 2+ (3-5) Rouleaux PRESENT Schistocytes 1+ (0-2) Anion Gap 13 Estim Creat Clear Calc 45.6 Estimated GFR > 60 Random Glucose 81 Calcium 8.5 Total Bilirubin 0.4 Direct Bilirubin 0.2 AST 20 ALT 8 Alkaline Phosphatase 129 H Troponin I High Sens 4.0 B-Natriuretic Peptide 134 H Total Protein 6.8 Albumin 2.9 L Lipase 14 Stool Occult Blood 06/19/22 00:05 MCV MCH MCHC RDW Plt Count MPV Immature Gran % (Auto) Neut % (Auto) Lymph % (Auto) Wilkes % (Auto) Eos % (Auto) Baso % (Auto) Lymph # (Auto) Wilkes # (Auto) Eos # (Auto) Baso # (Auto) Abs Immat Gran (auto) Absolute Neuts (auto) Absolute Nucleated RBC Nucleated RBC % (auto) Neutrophils % (Manual) Band Neutrophils % Lymphocytes % (Manual) Monocytes % (Manual) Eosinophils % (Manual) Metamyelocytes % Myelocytes % Blast Cells % (Manual) Abs Neuts (Manual) Lymphocytes # (Manual) Monocytes # (Manual) Eosinophils # (Manual) Metamyelocytes # Myelocytes # Blast Cells # Nucleated RBCs WBC Morphology Comment Platelet Estimate Large Platelets Plt Morphology Comment RBC Morphology Hypochromasia Microcytosis Macrocytosis Tear Drop Cells Ovalocytes Acanthocytes (Spur) Rouleaux Schistocytes Anion Gap Estim Creat Clear Calc Estimated GFR Random Glucose Calcium Total Bilirubin Direct Bilirubin AST ALT Alkaline Phosphatase Troponin I High Sens B-Natriuretic Peptide Total Protein Albumin Lipase Stool Occult Blood NEGATIVE Imaging Radiologist's Impressions: Impressions Chest CT 06/18/22 20:05 IMPRESSION: 1. Emphysematous change of lungs. 2. Bibasilar consolidation/atelectasis, left greater than right. Patchy reticular and alveolar opacity at the left lung apex within the left upper lobe. 3. Small pericardial effusion. 4. Bilateral pleural effusions, left greater than right. 5. No displaced rib fracture. Old healed fracture posterior right 10th rib. Fleischner guidelines were followed. Assessment and Plan (1) Chest pain: Status: Acute (2) Pneumonia: Status: Acute (3) Symptomatic anemia: Status: Acute (4) Essential tremor: Status: Acute (5) Parkinson's disease: Status: Acute (6) Hypothyroid: Status: Acute Plan This is a 87-year-old female resident of [facility] with pertinent history of atrial fibrillation, essential tremor, Parkinson's disease, hypothyroidism was sent from [facility] for evaluation of left-sided chest discomfort. #. Chest pain, musculoskeletal in origin -conservative management with p.o. analgesics p.r.n. #. ?Symptomatic anemia -unspecified chronicity and etiology. Obtaining iron studies, vitamin B12 and folate. Unclear baseline, 1 unit PRBC was ordered in the ER. Monitor CBC in a.m.. Patient is without hematemesis, hematuria, melena or hematochezia. Stool occult test negative in the ER #. Left-sided community-acquired pneumonia -will initiate empiric IV antibiotics while in the hospital. #. Generalized weakness -likely in the setting of anemia + infection. Consulted physical therapy to evaluate and treat. #. Parkinson's disease -continue home medications #. Hypothyroidism -continue Synthroid. Will check TSH to rule out hypothyroidism as an etiology for fatigue and weakness #. COPD -continue home inhalers #. Paroxysmal atrial fibrillation -rate controlled in the ER. Not on anticoagulation DVT prophylaxis: Lovenox 40 mg daily Regular diet Do not intubate. Discussed with patient at bedside and she stated that she would like to be resuscitated but not intubated. Quality Stroke Does the patient have a stroke diagnosis?: No VTE Prior VTE?: No VTE Risk Level:: Medical - moderate - high VTE Device Contraindication: Treatment Not Indicated VTE Drug Contraindication: N/A - Med Ordered
--- OUTSIDE RECORDS SUMMARY | 2022-06-19 01:28 | XMS_ITS | Encounter Summary ---
:1935 Author Care Team Providers Name Role Phone Art Ortiz Primary Care Provider [phone] [place] [facility] - 4th Floor OTHER [phone] Reason for Visit Routine Rounding Assessment and Plan Assessment Note AGREE WITH METHODS ANALYST STUDENT 1. Weight loss Assessment: - Continued weight loss. Nutrition saw h er yesterday and she was counseled again today about the importance of adequate nutrition. Unable to tolerate any supplement but Boost Breeze. Plan: - Will increase Remeron from 7.5mg daily at bedtime to 15mg. - Monitor weight - Freezer Person consult as needed - Will ensure pt [...] Anemia follows with Dr Alondra bello/onc through [facility] anemia injections through there q 3 [...] tid monitor neuro Tiffanie Cheng at [address], [place] [phone] 12. Restless legs ropinirole 1.5 mg tid [...] Code Code System Name Reaction Severity Onset 112322 RxNorm Bactrim ? ? ? 5502175 RxNorm Dabigatran Etexilate ? ? ? 892267 RxNorm Dexlansoprazole ? ? ? 874755 RxNorm Dilaudid ? ? ? 3640 RxNorm Doxycycline ? ? ? 6211 RxNorm Lactose ? ? ? 418653 RxNorm Moxifloxacin ? ? ? 70260 RxNorm Vancomycin ? ? ? Notes: egg [...] you have a medical power of Y litigation attorney? What was the date of your [...] do you live? Apartment Notes: ILF at [facility] What is your relationship status? Functional Status Unknown. Past Encounters 05/19/2022 Weight Loss; Atrial Fibrillation; Chroni c Hyponatremia; Chronic Obstructive Lung Disease; Chronic Tremor; Hypothyroidism; Myelodysplastic Syndrome (Clinical); Anemia; Gastroesophageal Reflux Disease wit hout Esophagitis; Orthostatic Hypotensio n; Parkinson's Disease; Restless Legs GUILLERMO Chiu: [address] [place] [address], Ph. 05/15/2022 Chronic Hyponatremia; Anemia; Acute Cons tipation; Orthostatic Hypotension; Pain of Right Shoulder Joint GUILLERMO Chiu: [address] [place] [address], Ph. 05/08/2022 Anemia GUILLERMO Chiu: [address] [place] [address], Ph. 05/04/2022 Sore Throat Symptom; Weight Loss; Chroni c Hyponatremia; Anemia; Atrial Fibrillation; Chronic Obstructive Lung Disease; Gastroesophageal Reflux Disease without Esophagitis; Myelodysplastic Syndrome (Clin ical); Hypothyroidism; Parkinson's Disea se; Restless Legs; Orthostatic Hypotension; Chronic Pain; Nausea; Chronic Constipation; Subdural Hematoma; Fracture of Superior Pubic Ramus; Fracture of Inferior Pubic Ramus; Chronic Tremor Lucila Engle METHODS ANALYST: [address] [place] [address], Ph. 05/01/2022 Weight Loss; Chronic Hyponatremia; Anemi a LEEANN ChiuP: [address] [facility] [place] [address], Ph. 04/28/2022 Atrial Fibrillation; Chronic Obstructive Lung Disease; Gastroesophageal Reflux Disease without Esophagitis; Myelodysplastic Syndrome (Clinical); Hypothyroidism; Parkinson's Disease; Restless Legs; Orthostatic Hypotension; Chronic Pain Maddy Smith MD: [address] [place] [address], Ph. 04/25/2022 Myelodysplastic Syndrome (Clinical); Par kinson's Disease; Chronic Obstructive Lung Disease; Acute Low Back Pain; Orthostatic Hypotension; Nausea; Anemia; Chronic Hyponatremia; Atrial Fibrillation; Chron ic Constipation; Subdural Hematoma; Frac ture of Superior Pubic Ramus; Fracture of Inferior Pubic Ramus; Hypothyroidism; Chronic Tremor Lucila Engle METHODS ANALYST: [address] [facility] [place] [address], Ph. 04/20/2022 Myelodysplastic Syndrome (Clinical); Par kinson's Disease; Acute Low Back Pain; Nausea; Anemia; Chronic Constipation; Subdural Hematoma; Fracture of Superior Pubic Ramus; Fracture of Inferior Pubic Ramus ; Atrial Fibrillation; Hypothyroidism; O rthostatic Hypotension; Chronic Hyponatremia; Chronic Tremor Lucila Engle METHODS ANALYST: [address] [place] [address], Ph. 04/18/2022 Myelodysplastic Syndrome (Clinical); Adam sea; Anemia; Chronic Constipation; Parkinson's Disease; Subdural Hematoma; Fracture of Superior Pubic Ramus; Fracture of Inferior Pubic Ramus; Atrial Fibrillation ; Hypothyroidism; Orthostatic Hypotensio n; Chronic Hyponatremia Lucila Engle METHODS ANALYST: [address] [place] [address], Ph. History of Present Illness Note: <div>Pt [...] 141, na 139, k 4.2, bun 24, electrical equipment technician 0.95, sabi 7.4</div><div>03/20/22 na 139, k 3.5, bun 28, electrical equipment technician 0.88, sabi 7.5</div><div>03/27/22 wbc 3.3 , hgb 7.1, hct 21.9, plt 149, na 134, k 4, bun 13, electrical equipment technician 0.78, sabi 8</ div><div>04/03/22 wbc 4, hgb 7.3, hct 22.3, plt 207, na 132, k 4.5 , bun 17, electrical equipment technician 0.82, sabi 8</div><div>04/10/22-WBC-3.4, H/H-6.6/20.9, plts-177, BUN/Cr-16/0.97, GFR-55, Na+1 31, K+4.5, glu-61</div><div>04/17: wbc 3.1, hgb 7.3, plt 152. Na 13 0, K 3.8, Bun13, Cr. 0.74, glu 65. </div><div>04/25: wbc 2.7, hgb 6.5, plt 141. </div><div>05/01/22 wbc 3.8, hgb 7.4, hct 22.9, plt 168, na 132, k 4.4, bun 17, electrical equipment technician 0.69, sabi 7.7</div><div>05/08/22 wb c 4.1, hgb 6.8, hct 21.4, plt 149, na 133, k 4.3, bun 20, electrical equipment technician 0.91 , sabi 7.7</div><div>05/15/22: wbc 4.5, h&h 9.3/29.4, mchc 31.6 , rdw 21.4, plt 195, gluc 65, sodium 134, k+ 4.3, chloride 103, c o2 25, gap 6, bun 18, creat 0.88, eGFR >60, calcium 8.3</div>
--- OUTSIDE RECORDS SUMMARY | 2022-06-19 01:28 | XMS_ITS ---
:1935 Author Care Team Providers Name Role Phone JAYDE CARTER Primary Care Provider [phone] ANTION[facility] CASTRO - 4TH FLOOR OTHER [phone] Allergies Code Code System Name Reaction Severity Status Onset 551941 RxNorm Bactrim ? ? Active ? 6142607 RxNorm Dabigatran Etexilate ? ? Active ? 036218 RxNorm Dexlansoprazole ? ? Active ? 999520 RxNorm Dilaudid ? ? Active ? 3640 RxNorm Doxycycline ? ? Active ? 6211 RxNorm Lactose ? ? Active ? 690901 RxNorm Moxifloxacin ? ? Active ? 42060 RxNorm Vancomycin ? ? Active ? Notes: [...] Lung Disease; Acute Dermatitis GUILLERMO Chiu: [address], [place] [address], Ph. 06/13/2022 Chronic Hyponatremia; Hyperkalemia; Anem ia; Hypothyroidism; Parkinson's Disease; Weight Loss; Orthostatic Hypotension; Atrial Fibrillation; Chronic Constipation; Chronic Obstructive Lung Disease; Gastro esophageal Reflux Disease without Esopha gitis; Electrolyte Imbalance; Acute Dermatitis Lucila Engle NP: [address], [place] [address], Ph. 06/12/2022 Atrial Fibrillation; Chronic Obstructive Lung Disease; Eruption; Myelodysplastic Syndrome (Clinical); Weight Loss; Hypocalcemia GUILLERMO Chiu: [address], [place] [address], Ph. 06/08/2022 Chronic Hyponatremia; Hyperkalemia; Anem ia; Hypothyroidism; Parkinson's Disease; Weight Loss; Orthostatic Hypotension; Atrial Fibrillation; Chronic Constipation; Chronic Obstructive Lung Disease; Gastro esophageal Reflux Disease without Esopha gitis; Electrolyte Imbalance Lucila Engle ASSISTANT COUNSEL: [address], [place] [address], Ph. 05/25/2022 Acute Dermatitis; Chronic Insomnia; Dry Eyes; Fracture of Superior Pubic Ramus; Myelodysplastic Syndrome (Clinical); Weight Loss; Hypothyroidism Lucila Engle NP: [address], [place] [address], Ph. 05/23/2022 Weight Loss; Myelodysplastic Syndrome (C linical); Hypothyroidism Lucila Engle NP: [address], [place] [address], Ph. 05/22/2022 Dry Eyes GUILLERMO Chiu: [address], [place] [address], Ph. 05/19/2022 Weight Loss; Atrial Fibrillation; Chroni c Hyponatremia; Chronic Obstructive Lung Disease; Chronic Tremor; Hypothyroidism; Myelodysplastic Syndrome (Clinical); Anemia; Gastroesophageal Reflux Disease wit hout Esophagitis; Orthostatic Hypotensio n; Parkinson's Disease; Restless Legs GUILLERMO Chiu: [address], [place] [address], Ph. 05/15/2022 Chronic Hyponatremia; Anemia; Acute Cons tipation; Orthostatic Hypotension; Pain of Right Shoulder Joint GUILLERMO Chiu: [address], [place] [address], Ph. 05/08/2022 Anemia GUILLERMO Chiu: [address], [place] [address], Ph. 05/04/2022 Sore Throat Symptom; Weight Loss; Chroni c Hyponatremia; Anemia; Atrial Fibrillation; Chronic Obstructive Lung Disease; Gastroesophageal Reflux Disease without Esophagitis; Myelodysplastic Syndrome (Clin ical); Hypothyroidism; Parkinson's Disea se; Restless Legs; Orthostatic Hypotension; Chronic Pain; Nausea; Chronic Constipation; Subdural Hematoma; Fracture of Superior Pubic Ramus; Fracture of Inferior Pubic Ramus; Chronic Tremor Lucila Engle ASSISTANT COUNSEL: [address], [place] [address], Ph. 05/01/2022 Weight Loss; Chronic Hyponatremia; Anemi a LEEANN ChiuP: [address], [place] [address], Ph. 04/28/2022 Atrial Fibrillation; Chronic Obstructive Lung Disease; Gastroesophageal Reflux Disease without Esophagitis; Myelodysplastic Syndrome (Clinical); Hypothyroidism; Parkinson's Disease; Restless Legs; Orthostatic Hypotension; Chronic Pain Maddy Smith MD: [address], [place] [address], Ph. 04/25/2022 Myelodysplastic Syndrome (Clinical); Par kinson's Disease; Chronic Obstructive Lung Disease; Acute Low Back Pain; Orthostatic Hypotension; Nausea; Anemia; Chronic Hyponatremia; Atrial Fibrillation; Chron ic Constipation; Subdural Hematoma; Frac ture of Superior Pubic Ramus; Fracture of Inferior Pubic Ramus; Hypothyroidism; Chronic Tremor Lucila Engle ASSISTANT COUNSEL: [address] [place] [address], Ph. 04/20/2022 Myelodysplastic Syndrome (Clinical); Par kinson's Disease; Acute Low Back Pain; Nausea; Anemia; Chronic Constipation; Subdural Hematoma; Fracture of Superior Pubic Ramus; Fracture of Inferior Pubic Ramus ; Atrial Fibrillation; Hypothyroidism; O rthostatic Hypotension; Chronic Hyponatremia; Chronic Tremor Lucila Engle ASSISTANT COUNSEL: [address] [place] [address], Ph. 04/18/2022 Myelodysplastic Syndrome (Clinical); [place]; Anemia; Chronic Constipation; Parkinson's Disease; Subdural Hematoma; Fracture of Superior Pubic Ramus; Fracture of Inferior Pubic Ramus; Atrial Fibrillation ; Hypothyroidism; Orthostatic Hypotensio n; Chronic Hyponatremia Lucila Engle ASSISTANT COUNSEL: [address] [place] [address], Ph. 04/10/2022 Myelodysplastic Syndrome (Clinical); [place]; Chronic Constipation; Parkinson's Disease; Subdural Hematoma; Fracture of Superior Pubic Ramus; Fracture of Inferior Pubic Ramus; Atrial Fibrillation; Hypoth yroidism; Orthostatic Hypotension; Chron ic Hyponatremia Marija Morrow MD: [address] [place] [address], Ph. 04/07/2022 Anemia; Parkinson's Disease GUILLERMO Chiu: [address] [facility] [place] [address], Ph. 04/06/2022 Anemia; Acute Constipation; Fracture of Superior Pubic Ramus; Atrial Fibrillation; Hypothyroidism; Orthostatic Hypotension; Myelodysplastic Syndrome (Clinical); Chronic Hyponatremia Lucila Engle ASSISTANT COUNSEL: [address] [place] [address], Ph. 04/03/2022 Anemia; Acute Constipation GUILLERMO Chiu: [address], [place] [address], Ph. 03/31/2022 Acute Constipation GUILLERMO Chiu: [address], [place] [address], Ph. 03/30/2022 Fracture of Superior Pubic Ramus Lucila Engle ASSISTANT COUNSEL: [address], [place] [address], Ph. 03/27/2022 Anemia; Chronic Hyponatremia GUILLERMO Chiu: [address], [place] [address], Ph. 03/24/2022 Atrial Fibrillation; Chronic Obstructive Lung Disease; Hypothyroidism; Orthostatic Hypotension; Myelodysplastic Syndrome (Clinical); Parkinson's Disease; Restless Legs; Chronic Hyponatremia; Fall; Anemi a; Chronic Tremor; Gastroesophageal Refl ux Disease without Esophagitis; Fracture of Single Pubic Ramus GUILLERMO Chiu: [address], [place] [address], Ph. 03/20/2022 Anemia; Gastroesophageal Reflux Disease without Esophagitis GUILLERMO Chiu: [address], [place] [address], Ph. 03/13/2022 Anemia; Gastroesophageal Reflux Disease without Esophagitis GUILLERMO Chiu: [address], [place] [address], Ph. 03/10/2022 Urinary Tract Infectious Disease; Anemia ; Myelodysplastic Syndrome (Clinical); Fracture of Single Pubic Ramus GUILLERMO Chiu: [address], [place] [address], Ph. 03/07/2022 Chronic Hyponatremia; Fracture of Single Pubic Ramus; Atrial Fibrillation GUILLERMO Chiu: [address], [place] [address], Ph. 03/03/2022 Subdural Hematoma; Fracture of Superior Pubic Ramus; Fracture of Inferior Pubic Ramus; Myelodysplastic Syndrome (Clinical); Atrial Fibrillation; Chronic Obstructive Lung Disease; Hypothyroidism; Orthost atic Hypotension; Parkinson's Disease; R estless Legs; Chronic Hyponatremia; Fall Marija Morrow MD: [address] [place] [address], Ph. 03/02/2022 Subdural Hematoma; Fracture of Single Pu bic Ramus; Myelodysplastic Syndrome (Clinical); Atrial Fibrillation; Chronic Obstructive Lung Disease; Hypothyroidism; Orthostatic Hypotension; Parkinson's Disease; Restless Legs; Chronic Hyponatremia; Fall Delilah Diehl : [address] [place] [address], Ph. Social History Tobacco Smoking Status Former [...]
--- OUTSIDE RECORDS SUMMARY | 2022-06-19 01:28 | XMS_ITS ---
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 [address] Aug, Atheroscl erosis of apache [place], [place] artery of both [place] [address] extremities, wit h unspecified pres ence of clinical manifes tation I70.203 ; Tinea unguium B35.1 ; Pain in right toe(s) M79.674 ; Pain in left toe(s) M79. 675 and Ingrowing nail L [address] Aug, [place] [address] 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 [facility] [place] [address] 27 Apr, 2021 Other ham scarlet toe(s) [facility] [place]ac[place] [address] [facility] [place] [address] 22 Apr, 2021 Atheroscl erosis of [place], [place] artery of both l [place] [address] extremities, wit h unspecified pres ence of clinical manifes tation I70.203 ; Tinea unguium B35.1 ; Pain in right toe(s) M79.674 ; Pain in left toe(s) M79. 675 and Ingrowing nail L 60.0 [facility] [address] Feb, [place] [address] [facility] [address] Feb, Atheroscl erosis of apache [place], [place] artery of both l [place] [address] extremities, wit h unspecified pres ence of clinical manifes tation I70.203 ; Tinea unguium B35.1 ; Pain in right toe(s) M79.674 ; Pain in left toe(s) M79. 675 ; Ingrowing nail L 60.0 and Other hammer toe (s) (acquired), righ t foot M20.41 [facility] [place] [address] December, [place] [address] [place] [address] December, Atheroscl erosis of apache [place], [place] artery of both l [place] [address] extremities, wit h unspecified pres ence of clinical manifes tation I70.203 ; Tinea unguium B35.1 ; Pain in right toe(s) M79.674 ; Pain in left toe(s) M79. 675 and Ingrowing nail L 60.0 [facility] [address] [place] [address] Nov, [place] [address] [facility] [address] [place] [address] 15 Nov, 2020 [place] [address] [facility] [address] Oct, [place] [address] [facility] [place] [address] Aug, Ingrowing nail L60.0 [place] [address] [facility] [address] [place] [address] Aug, [place] [address] [facility] [address] [place] [address] Aug, Atheroscl erosis of apache [place], [place] artery of both l [place] [address] extremities, wit h unspecified pres ence of clinical manifes tation I70.203 ; Tinea unguium B35.1 ; Pain in right toe(s) M79.674 ; Pain in left toe(s) M79. 675 and Ingrowing nail L 60.0 [facility] [place] [address] Jun, Atheroscl erosis of apache [place], [place] artery of both l [place] [address] extremities, wit h unspecified pres ence of clinical manifes tation I70.203 ; Tinea unguium B35.1 ; Pain in right toe(s) M79.674 a nd Pain in left toe(s) M79. 675 [facility] [address] [place] [address] Apr, Atheroscl erosis of apache [place], [place] artery of both l [place] [address] extremities, wit h unspecified pres ence of clinical manifes tation I70.203 ; Tinea unguium B35.1 ; Pain in right toe(s) M79.674 a nd Pain in left toe(s) M79. 675 [facility] [address] [place] [address] Feb, Atheroscl erosis of apache [place], [place] artery of both l [place] [address] extremities, wit h unspecified pres ence of clinical manifes tation I70.203 ; Tinea unguium B35.1 ; Pain in right toe(s) M79.674 a nd Pain in left toe(s) M79. 675 [facility] [address] [place] [address] Jan, [place] [address] [facility] [address] [place] [address] 15 Jan, 2020 [place] [address] [facility] [address] 02 Jan, 2020 [place] [address] [facility] [address] [place] [address] Oct, Atheroscl [place]osis [place] [address] extremities, wit h unspecified pres ence of clinical manifes tation I70.203 ; Tinea unguium B35.1 ; Pain in right toe(s) M79.674 a nd Pain in left toe(s) M79. 675 [facility] [address] [place] [address] Aug, Atheroscl [place]osis [place] [address] extremities, wit h unspecified pres ence of clinical manifes tation I70.203 ; Tinea unguium B35.1 ; Pain in right toe(s) M79.674 a nd Pain in left toe(s) M79. 675 [facility] [place] [address] Jun, Atheroscl erosis [place] [address] extremities, wit h unspecified pres ence of clinical manifes tation I70.203 ; Tinea unguium B35.1 ; Pain in right toe(s) M79.674 a nd Pain in left toe(s) M79. 675 [facility] [address] [place] [address] May, [place] [address] [facility] [address] Mar, Atheroscl erosis of [place], [place] artery of both l [facility] [address] extremities, wit h unspecified pres ence of clinical manifes tation I70.203 ; Ingrow ing nail L60.0 ; Tinea un guium B35.1 ; Pain in right toe(s) M79.674 a nd Pain in left toe(s) M79. 675 [facility] [address] [facility] 301 Jan, Atheroscl erosis of apache [place], [place] artery of both l [place] [address] extremities, wit h unspecified pres ence of clinical manifes tation I70.203 ; Tinea unguium B35.1 ; Pain in right toe(s) M79.674 a nd Pain in left toe(s) M79. 675 [facility] [address] [place] [address] Oct, Atheroscl erosis of apache [place], [place] artery of both l [place] [address] extremities with other clinical manifes tation I70.293 ; Tinea unguium B35.1 ; Pain in right toe(s) M79.674 a nd Pain in left toe(s) M79. 675 [facility] [address] [place] [address] Aug, Unspecifi ed [place], [place] atherosclerosis of apache [address] arteries of extr emities, bilateral legs I 70.203 ; Tinea unguium B3 5.1 ; Pain in right toe(s) M79.674 and Pain in left toe(s) M79.675 [facility] [address] [place] [address] May, Unspecifi [place], [place] atherosclerosis of apache [address] arteries of extr emities, bilateral legs I 70.203 ; Tinea unguium B3 5.1 ; Pain in right toe(s) M79.674 and Pain in left toe(s) M79.675 [facility] [address] [place] [address] Feb, Ingrowing nail L60.0 ; [place] Unspecified [address] atherosclerosis of apache arteries of extr emities, bilateral legs I 70.203 ; Tinea unguium B3 5.1 ; Pain in right toe(s) M79.674 and Pain in left toe(s) M79.675 [facility] [address] [place] [address] December, Unspecifi [place] atherosclerosis of apache [address] arteries of extr emities, bilateral legs I 70.203 ; Tinea unguium B3 5.1 ; Pain in right toe(s) M79.674 and Pain in left toe(s) M79.675 [facility] [address] [facility] 301 Oct, [place] [address] [facility] [address] [place] [address] Sep, [place], [place] atherosclerosis of apache [address] arteries of extr emities, bilateral legs I 70.203 ; Tinea unguium B3 5.1 ; Pain in right toe(s) M79.674 and Pain in left toe(s) M79.675 [facility] [address] [facility] 301 Sep, [place] [address] [facility] [address] [place] [address] Jun, [place] [address] [facility] [address] [place] [address] Apr, [place], [place] atherosclerosis of apache [address] arteries of extr emities, bilateral legs I 70.203 ; Tinea unguium B3 5.1 ; Pain in right toe(s) M79.674 and Pain in left toe(s) M79.675 [facility] [address] [place] [address] Feb, [place], [place] atherosclerosis of apache [address] arteries of extr emities, bilateral legs I 70.203 ; Tinea unguium B3 5.1 ; Pain in right toe(s) M79.674 ; Pain in left toe (s) M79.675 and Ingr owing nail L60.0 [facility] [address] [place] [address] Nov, [place], [place] atherosclerosis of apache [address] arteries of extr emities, bilateral legs I 70.203 ; Tinea unguium B3 5.1 ; Pain in right toe(s) M79.674 and Pain in left toe(s) M79.675 [facility] [address] [place] [address] Sep, [place] [address] [facility] [address] [place] [address] Sep, [place], [place] atherosclerosis of apache [address] arteries of extr emities, bilateral legs I 70.203 ; Plantar fascial fibromatosis M72 .2 ; Localized swelli ng, mass and lump, right lower limb R22.41 ; Tinea u nguium B35.1 ; Pain in right toe(s) M79.674 a nd Pain in left toe(s) M79. 675 [facility] [address] [facility] [address] Sep, [place] [address] IMMUNIZATIONS Vaccine Route Administration Date Status COVID-19 Pfizer BioNTech Vaccine Unknown May 23, 2021 Administered SOCIAL HISTORY Qualifiers Date Former Smoker 1991 REASON FOR REFERRAL FUNCTIONAL STATUS PLAN OF CARE Activity Details Future/Pending Procedure 09209-ANOITKB NAIL, 1-5 Future/Pending Procedure 08980-Egjibykm Plate Future/Pending Procedure 11694-YXVU SKIN LESIONS, 2 T O 4 Future/Pending Procedure I1090-IOGTFBJW DYSTROPHIC NA ILS ANY # Future/Pending Procedure 39425 - Tenotomy, open flexo r Future/Pending Procedure 07470-CACQDTN NAIL, 1-5 Future/Pending Procedure 16172-Qwvksqwz Plate Future/Pending Procedure 26847-SKQY SKIN LESIONS, 2 T O 4 Future/Pending Procedure P5431-AALWIZQA DYSTROPHIC NA ILS ANY # Future/Pending Procedure 33060-LREDVHW NAIL, 1-5 Future/Pending Procedure 95872-Xfjlqpjv Plate Future/Pending Procedure 87541-YYUB SKIN LESIONS, 2 T O 4 Future/Pending Procedure A7788-WRHYBGGL DYSTROPHIC NA ILS ANY # Future/Pending Procedure 05160-MDIVJCI NAIL, 1-5 Future/Pending Procedure 90133-Pjbrmvrf Plate Future/Pending Procedure 54764-MMVG SKIN LESIONS, 2 T O 4 Future/Pending Procedure Y8151-BBHMNVTG DYSTROPHIC NA ILS ANY # Future/Pending Procedure 34322-LUBBTSB NAIL, 1-5 Future/Pending Procedure 91970-Eorajufx Plate Future/Pending Procedure 89274-VGIM SKIN LESIONS, 2 T O 4 Future/Pending Procedure A3874-TVIOKYYQ DYSTROPHIC NA ILS ANY # Future/Pending Procedure 74927-PISEHKX NAIL, 1-5 Future/Pending Procedure 40114-HJIV SKIN LESIONS, 2 T O 4 Future/Pending Procedure E8546-CSWCEKWD DYSTROPHIC NA ILS ANY # Future/Pending Procedure 46985-CLBMIMA NAIL, 1-5 Future/Pending Procedure 48877-FLOD SKIN LESIONS, 2 T O 4 Future/Pending Procedure B7380-RLDMFHVB DYSTROPHIC NA ILS ANY # Future/Pending Procedure 84145-WABFEVT NAIL, 1-5 Future/Pending Procedure 00047-QMOZ SKIN LESIONS, 2 T O 4 Future/Pending Procedure V9291-LFZVLLEE DYSTROPHIC NA ILS ANY # Future/Pending Procedure 65337-XGQKEHC NAIL, 1-5 Future/Pending Procedure 87137-OCGV SKIN LESIONS, 2 T O 4 Future/Pending Procedure D3937-UVXALEVV DYSTROPHIC NA ILS ANY # Future/Pending Procedure 12768-XTCLWCI NAIL, 1-5 Future/Pending Procedure 03232-UIOX SKIN LESIONS, 2 T O 4 Future/Pending Procedure G1692-BQLXZYID DYSTROPHIC NA ILS ANY # Future/Pending Procedure 93193-NVLQEHG NAIL, 1-5 Future/Pending Procedure 70235-HJSP SKIN LESIONS, 2 T O 4 Future/Pending Procedure G8232-OKKMKIPX DYSTROPHIC NA ILS ANY # Future/Pending Procedure 32769-HAMEPFM NAIL, 1-5 Future/Pending Procedure 40662-Zovmqfjm Plate Future/Pending Procedure 05808-IOEC SKIN LESIONS, 2 T O 4 Future/Pending Procedure C0913-RFUGMDZS DYSTROPHIC NA ILS ANY # Future/Pending Procedure 91230-FXVEEBQ NAIL, 1-5 Future/Pending Procedure 52678-OQCR SKIN LESIONS, 2 T O 4 Future/Pending Procedure P1948-AZOVNITL DYSTROPHIC NA ILS ANY # Future/Pending Procedure 67452-UJLASSN NAIL, 1-5 Future/Pending Procedure 85686-NHBV SKIN LESIONS, 2 T O 4 Future/Pending Procedure D4313-TLRIICUK DYSTROPHIC NA ILS ANY # Future/Pending Procedure 57296-OSZNLPE NAIL, 1-5 Future/Pending Procedure 84686-DHZP SKIN LESIONS, 2 T O 4 Future/Pending Procedure S5414-EQRKUEYS DYSTROPHIC NA ILS ANY # Future/Pending Procedure 78076-MGDAJCX NAIL, 1-5 Future/Pending Procedure 90407-PTES SKIN LESIONS, 2 T O 4 Future/Pending Procedure S4836-ZVLMFTTP DYSTROPHIC NA ILS ANY # Future/Pending Procedure 72930-XXPGHSC NAIL, 1-5 Future/Pending Procedure 67569-Tfeemteh Plate Future/Pending Procedure 85137-BJUP SKIN LESIONS, 2 T O 4 Future/Pending Procedure U6712-BLHJVLOW DYSTROPHIC NA ILS ANY # Future/Pending Procedure 26027-MVJYBII NAIL, 1-5 Future/Pending Procedure 62482-SYID SKIN LESIONS, 2 T O 4 Future/Pending Procedure W6299-DHXENJRW DYSTROPHIC NA ILS ANY # Future/Pending Procedure 95615-FLYMCAQ NAIL, 1-5 Future/Pending Procedure 25210-SVDW SKIN LESIONS, 2 T O 4 Future/Pending Procedure X8015-BZGBWKSJ DYSTROPHIC NA ILS ANY # Future/Pending Procedure 99348-RZEQYXN NAIL, 1-5 Future/Pending Procedure 76572-YCEV SKIN LESIONS, 2 T O 4 Future/Pending Procedure L5602-WZZSLBKN DYSTROPHIC NA ILS ANY # Future/Pending Procedure 25641-RBPXDMC NAIL, 1-5 Future/Pending Procedure 38848-Zkwpqzzf Plate Future/Pending Procedure 09793-KEAK SKIN LESIONS, 2 T O 4 Future/Pending Procedure H5569-UKSSWVRJ DYSTROPHIC NA ILS ANY # Future/Pending Procedure 51346-KKGFELF NAIL, 1-5 Future/Pending Procedure 07610-OCTX SKIN LESIONS, 2 T O 4 Future/Pending Procedure Z8265-UVTOPJHT DYSTROPHIC NA ILS ANY # Future/Pending Procedure 03162-NDZZKEC NAIL, 1-5 Future/Pending Procedure 20710-PMRD SKIN LESIONS, 2 T O 4 Future/Pending Procedure A3495-CKJLJFDO DYSTROPHIC NA ILS ANY # VITAL SIGNS [...] Active Vitamin D 24h Active Ipratropium Active [place] NexIUM 40 MG Orally Once a 1 capsule 24h Act isaac day Anoro Ellipta Active Systane Active Multivitamin 24h Active Vitamin D Not-Takin g Alendronate Active Sodium ZyrTEC Active Darifenacin Orally Once a 1 tablet 24h Not-T yaw Hydrobromide ER day with g 7.5 MG liquid Primidone 150mg Active immodium Active PROCEDURES Procedure Date Ordered Result Body Site DEBRIDE NAIL, -May 02, 2017 TRIM SKIN LESIONS, TO December 13, 2016 TRIM SKIN LESIONS, TO Sep 02, 2018 DEBRIDE NAIL, -Jun 13, 2018 Avulsion Plate March 06, 2018 TRIM SKIN LESIONS, TO Jun 13, 2018 TRIMMING DYSTROPHIC NAILS ANY # March 06, 2018 TRIMMING DYSTROPHIC NAILS ANY # December 26, 2017 TRIM SKIN LESIONS, TO Oct 10, 2017 TRIMMING DYSTROPHIC NAILS ANY # Oct 10, 2017 TRIM SKIN LESIONS, TO December 26, 2017 TRIMMING DYSTROPHIC NAILS ANY # May 02, 2017 TRIMMING DYSTROPHIC NAILS ANY # Jun 25, 2019 DEBRIDE NAIL, -Apr 02, 2019 TRIMMING DYSTROPHIC NAILS ANY # December 13, 2016 TRIMMING DYSTROPHIC NAILS ANY # Apr 02, 2019 TRIMMING DYSTROPHIC NAILS ANY # January 22, 2019 INCISION OF FOOT TENDON(S) May 16, 2021 TRIM SKIN LESIONS, TO January 22, 2019 DEBRIDE NAIL, 08-24Sep 02, 2018 TRIM SKIN LESIONS, TO November 13, 2018 TRIMMING DYSTROPHIC NAILS ANY # November 13, 2018 TRIMMING DYSTROPHIC NAILS ANY # Apr 28, 2020 TRIMMING DYSTROPHIC NAILS ANY # February 23, 2020 TRIMMING DYSTROPHIC NAILS ANY # November 13, 2019 TRIMMING DYSTROPHIC NAILS ANY # Sep 04, 2019 TRIM SKIN LESIONS, TO May 02, 2017 TRIMMING DYSTROPHIC NAILS ANY # Sep 02, 2018 TRIM SKIN LESIONS, TO February 28, 2021 TRIM SKIN LESIONS, TO February 21, 2017 TRIMMING DYSTROPHIC NAILS ANY # Jun 13, 2018 DEBRIDE NAIL, -December 26, 2017 DEBRIDE NAIL, -November 13, 2018 DEBRIDE NAIL, -January 22, 2019 DEBRIDE NAIL, -December 13, 2016 Avulsion Plate February 21, 2017 DEBRIDE NAIL, -Oct 10, 2017 TRIM SKIN LESIONS, TO March 06, 2018 DEBRIDE NAIL, -February 21, 2017 TRIM SKIN LESIONS, TO May 11, 2021 TRIM SKIN LESIONS, TO Oct 04, 2016 DEBRIDE NAIL, -Sep 14, 2021 DEBRIDE NAIL, -Jun 30, 2020 TRIM SKIN LESIONS, TO Sep 09, 2020 TRIMMING DYSTROPHIC NAILS ANY # Sep 09, 2020 TRIM SKIN LESIONS, TO December 20, 2020 TRIMMING DYSTROPHIC NAILS ANY # December 20, 2020 DEBRIDE NAIL, -February 28, 2021 Avulsion Plate February 28, 2021 TRIM SKIN LESIONS, TO Sep 14, 2021 DEBRIDE NAIL, -November 13, 2019 DEBRIDE NAIL, 08-24Sep 04, 2019 DEBRIDE NAIL, 08-24Apr 28, 2020 DEBRIDE NAIL, -March 06, 2018 DEBRIDE NAIL, -February 23, 2020 TRIM SKIN LESIONS, TO Apr 02, 2019 DEBRIDE NAIL, -Jun 25, 2019 Avulsion Plate Apr 02, 2019 TRIMMING DYSTROPHIC NAILS ANY # February 21, 2017 TRIM SKIN LESIONS, TO November 13, 2019 TRIM SKIN LESIONS, TO Sep 04, 2019 TRIM SKIN LESIONS, TO Jun 25, 2019 Avulsion Plate December 20, 2020 DEBRIDE NAIL, -Sep 09, 2020 Avulsion Plate Sep 09, 2020 TRIM SKIN LESIONS, TO Jun 30, 2020 TRIMMING DYSTROPHIC NAILS ANY # Jun 30, 2020 TRIM SKIN LESIONS, TO February 23, 2020 TRIM SKIN LESIONS, TO Apr 28, 2020 TRIMMING DYSTROPHIC NAILS ANY # Oct 04, 2016 Avulsion Plate Sep 14, 2021 DEBRIDE NAIL, 08-24May 11, 2021 Avulsion Plate May 11, 2021 TRIMMING DYSTROPHIC NAILS ANY # February 28, 2021 DEBRIDE NAIL, 08-24December 20, 2020 TRIMMING DYSTROPHIC NAILS ANY # May 11, 2021 TRIMMING DYSTROPHIC NAILS ANY # Sep 14, 2021 DEBRIDE NAIL, -Oct 04, 2016 RESULTS No Results REASON FOR VISIT Insurance Providers Health Health Health Health Health Member Patient Patient Patient Patient Patient Subscriber Subscriber Subscriber Group Insurance Plan Plan Plan Plan ID Relationship Address Phone Name Date of ID Name Date of No Type Insurance Insurance Insurance Coverage to Subscriber Address Phone Name Dates [employer] [phone] [employer] self Ximena 19 [id number] Ruth [id number] [facility] [place] [address] Medicare National [phone] Medicare self Ximena 1935 [id number] Govt Svcs [address] [employer] [address] [place] [address] MEDICAL (GENERAL) HISTORY Type Description Date Medical [...] Surgical History appendectomy 1965 Hospitalization History [facility] 09/05/16 Hospitalization History [facility]IVIA Smalls 01/2020 Hospitalization History [facility]- fell, concussion, ct scan 02/18 021 Hospitalization History Rehab, [facility] for four days 08/2021
--- OUTSIDE RECORDS SUMMARY | 2022-06-19 01:28 | XMS_ITS | Encounter Summary ---
:1935 Author Care Team Providers Name Role Phone Art Ortiz Primary Care Provider [phone] [place] - 4th Floor OTHER [phone] Reason for Visit None recorded. Assessment and Plan 1. 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 Responded well to fluid restriction and Urea. Continue 1500 cc fluid restriction sodium 139 yesterday, BMP q sunday to tr end 2. Hyperkalemia Responded well to lokelma K now 4.3. BMP q sunday to trend 3. 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 ? ? 2191319 RxNorm Dabigatran Etexilate ? ? ? 778852 RxNorm Dexlansoprazole ? ? ? 412112 RxNorm Dilaudid ? ? ? 3640 RxNorm Doxycycline ? ? ? 6211 RxNorm Lactose ? ? ? 449560 RxNorm Moxifloxacin ? ? ? 72006 RxNorm Vancomycin ? ? ? Notes: egg [...] have a medical power of Y document preparation specialist? What was the date of your most [...] without Esopha gitis; Electrolyte Imbalance Lucila Engle TRANSPORTATION COORDINATOR: [address] [place] [address], Ph. 05/25/2022 Acute Dermatitis; Chronic Insomnia; Dry Eyes; Fracture of Superior Pubic Ramus; Myelodysplastic Syndrome (Clinical); Weight Loss; Hypothyroidism Lucila Engle NP: [address] [place] [address], Ph. 05/23/2022 Weight Loss; Myelodysplastic Syndrome (C linical); Hypothyroidism Lucila Engle TRANSPORTATION COORDINATOR: [address], [place] [address], Ph. 05/22/2022 Dry Eyes LEEANN ChiuP: [address], [place] [address], Ph. 05/19/2022 Weight Loss; Atrial Fibrillation; Chroni c Hyponatremia; Chronic Obstructive Lung Disease; Chronic Tremor; Hypothyroidism; Myelodysplastic Syndrome (Clinical); Anemia; Gastroesophageal Reflux Disease wit hout Esophagitis; Orthostatic Hypotensio n; Parkinson's Disease; Restless Legs GUILLERMO Chiu: [address], [place] [address], Ph. 05/15/2022 Chronic Hyponatremia; Anemia; Acute Cons tipation; Orthostatic Hypotension; Pain of Right Shoulder Joint GUILLERMO Chiu: [address], [place] [address], Ph. History of Present Illness Note: <div>Ximena is seen today for readmission. She returned from [facility] on 06/06 for continued careand rehab after a brief hosp. due to low BP, anemia, electrolyte imbalance. </div><div>
</div><div>She was sent to [facility] on 05/26 from her Oncologist's Office due [...] 168, na 132, k 4.4, bun 17, assistant women's tennis coach 0.69, sabi 7.7</d iv><div>05/08/22 wbc 4.1, hgb 6.8, hct 21.4, plt 149, na 133, k 4.3 , bun 20, assistant women's tennis coach 0.91, sabi 7.7</div><div>05/15/22: wbc 4 .5, h&h [...]
--- OUTSIDE RECORDS SUMMARY | 2022-06-19 01:28 | XMS_ITS | Encounter Summary ---
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 ? ? 1632992 RxNorm Dabigatran Etexilate ? ? ? 201910 RxNorm Dexlansoprazole ? ? ? 297029 RxNorm Dilaudid ? ? ? 3640 RxNorm Doxycycline ? ? ? 6290 RxNorm Lactose ? ? ? 823283 RxNorm Moxifloxacin ? ? ? 19102 RxNorm Vancomycin ? ? ? Notes: egg [...] you have a medical power of Y vp product? What was the date of your most [...] you live? Apartment Notes: ILF at [facility] What is your relationship status? Functional Status Unknown. Past Encounters 06/13/2022 Chronic Hyponatremia; Hyperkalemia; Anem ia; Hypothyroidism; Parkinson's Disease; Weight Loss; Orthostatic Hypotension; Atrial Fibrillation; Chronic Constipation; Chronic Obstructive Lung Disease; Gastro esophageal Reflux Disease without Esopha gitis; Electrolyte Imbalance; Acute Dermatitis Lucila Engle TELECOM ANALYST: [address] [place] [address], Ph. 06/12/2022 Atrial Fibrillation; Chronic Obstructive Lung Disease; Eruption; Myelodysplastic Syndrome (Clinical); Weight Loss; Hypocalcemia GUILLERMO Chiu: [address] [place] [address], Ph. 06/08/2022 Chronic Hyponatremia; Hyperkalemia; Anem ia; Hypothyroidism; Parkinson's Disease; Weight Loss; Orthostatic Hypotension; Atrial Fibrillation; Chronic Constipation; Chronic Obstructive Lung Disease; Gastro esophageal Reflux Disease without Esopha gitis; Electrolyte Imbalance Lucila Engle TELECOM ANALYST: [address] [place] [address], Ph. 05/25/2022 Acute Dermatitis; Chronic Insomnia; Dry Eyes; Fracture of Superior Pubic Ramus; Myelodysplastic Syndrome (Clinical); Weight Loss; Hypothyroidism Lucila Engle TELECOM ANALYST: [address] [place] [address], Ph. 05/23/2022 Weight Loss; Myelodysplastic Syndrome (C linical); Hypothyroidism Lucila Engle TELECOM ANALYST: [address] [facility] [place] [address], Ph. 05/22/2022 Dry Eyes GUILLERMO Chiu: [address] [place] [address], Ph. 05/19/2022 Weight Loss; Atrial Fibrillation; Chroni c Hyponatremia; Chronic Obstructive Lung Disease; Chronic Tremor; Hypothyroidism; Myelodysplastic Syndrome (Clinical); Anemia; Gastroesophageal Reflux Disease wit hout Esophagitis; Orthostatic Hypotensio n; Parkinson's Disease; Restless Legs GUILLERMO Chiu: [address] [place] [address], Ph. 05/15/2022 Chronic Hyponatremia; Anemia; Acute Cons tipation; Orthostatic Hypotension; Pain of Right Shoulder Joint GUILLERMO Chiu: [address], [place] [address], Ph. History of Present Illness Note: <div>Ximena is seen today for an acute visit. </div><div>
</div>&l t;div>She returned from [facility] on 06/06 for continued care and rehab after a brief hosp. due to low BP, anemia, electrolyte imbalance. </div><div>She was sent to [facility] on 05/26 from her Oncologist's Office due [...] 168, na 132, k 4.4, bun 17, print support specialist 0.69, sabi 7.7</d iv><div>05/08/22 wbc 4.1, hgb 6.8, hct 21.4, plt 149, na 133, k 4.3 , bun 20, print support specialist 0.91, sabi 7.7</div><div>05/15/22: wbc 4 .5, h&h [...]
--- OUTSIDE RECORDS SUMMARY | 2022-06-19 01:28 | XMS_ITS | Encounter Summary ---
:1935 Author Care Team Providers Name Role Phone Art Ortiz Primary Care Provider [phone] [place] Anglin - 4th Floor OTHER [phone] Reason for Visit Acute Rounding Visit Assessment and Plan Assessment Note AGREE WITH AGRICULTURAL EQUIPMENT DESIGN ENGINEER STUDENT 1. Anemia Assessment: - 6.6/20.9 today [...] MDS follows with Dr Cantu onco through [facility] luspatercept treatments to continue as [...] - Sodium WNL today (06/16) at 138. [place] likely combo of decreased solute in take [...] issues wit h hyponatremia Continue supplements - marketing rep activel y involved in care, trying to [...] Code Code System Name Reaction Severity Onset 006236 RxNorm Bactrim ? ? ? 4948043 RxNorm Dabigatran Etexilate ? ? ? 936073 RxNorm Dexlansoprazole ? ? ? 804634 RxNorm Dilaudid ? ? ? 3640 RxNorm Doxycycline ? ? ? 6211 RxNorm Lactose ? ? ? 565997 RxNorm Moxifloxacin ? ? ? 29240 RxNorm Vancomycin ? ? ? Notes: egg [...] you have a medical power of Y centrifugal separator? What was the date of your most [...] live? Apartment Notes: ILF at [facility] What is your relationship status? Functional Status Unknown. Past Encounters 06/16/2022 Anemia; Hypocalcemia; Chronic Hyponatrem ia; Hyperkalemia; Hypothyroidism; Parkinson's Disease; Weight Loss; Orthostatic Hypotension; Atrial Fibrillation; Chronic Obstructive Lung Disease; Acute Dermatitis GUILLERMO Chiu: [address] [place] [address], Ph. 06/13/2022 Chronic Hyponatremia; Hyperkalemia; Anem ia; Hypothyroidism; Parkinson's Disease; Weight Loss; Orthostatic Hypotension; Atrial Fibrillation; Chronic Constipation; Chronic Obstructive Lung Disease; Gastro esophageal Reflux Disease without Esopha gitis; Electrolyte Imbalance; Acute Dermatitis Lucila Engle NP: [address] [place] [address], Ph. 06/12/2022 Atrial Fibrillation; Chronic Obstructive Lung Disease; Eruption; Myelodysplastic Syndrome (Clinical); Weight Loss; Hypocalcemia GUILLERMO Chiu: [address] [facility] [place] [address], Ph. 06/08/2022 Chronic Hyponatremia; Hyperkalemia; Anem ia; Hypothyroidism; Parkinson's Disease; Weight Loss; Orthostatic Hypotension; Atrial Fibrillation; Chronic Constipation; Chronic Obstructive Lung Disease; Gastro esophageal Reflux Disease without Esopha gitis; Electrolyte Imbalance Lucila Engle NP: [address] [place] [address], Ph. 05/25/2022 Acute Dermatitis; Chronic Insomnia; Dry Eyes; Fracture of Superior Pubic Ramus; Myelodysplastic Syndrome (Clinical); Weight Loss; Hypothyroidism Lucila Engle AGRICULTURAL EQUIPMENT DESIGN ENGINEER: [address] , [place] [address], Ph. 05/23/2022 Weight Loss; Myelodysplastic Syndrome (C linical); Hypothyroidism Lucila Engle NP: [address] [place] [address], Ph. 05/22/2022 Dry Eyes Alejandrina SiegelLEEANNP: [address] [place] [address], Ph. 05/19/2022 Weight Loss; Atrial Fibrillation; Chroni c Hyponatremia; Chronic Obstructive Lung Disease; Chronic Tremor; Hypothyroidism; Myelodysplastic Syndrome (Clinical); Anemia; Gastroesophageal Reflux Disease wit hout Esophagitis; Orthostatic Hypotensio n; Parkinson's Disease; Restless Legs Alejandrina ReddyGUILLERMO boss: [address] [place] [address], Ph. History of Present Illness Note: <div>Pt [...] 168, na 132, k 4.4, bun 17, counterintelligence specialist 0.69, sabi 7.7</d iv><div>05/08/22 wbc 4.1, hgb 6.8, hct 21.4, plt 149, na 133, k 4.3 , bun 20, counterintelligence specialist 0.91, sabi 7.7</div><div>05/15/22: wbc 4 .5, [...]
--- OUTSIDE RECORDS SUMMARY | 2022-06-19 01:28 | XMS_ITS | Encounter Summary ---
:1935 Author Care Team Providers Name Role Phone Art Ortiz Primary Care Provider [phone] Delonte Derrek - 4th Floor OTHER [phone] Reason for Visit Acute Rounding Visit Assessment [...] to 15mg q HS Continue Boost/supplements - textile machinery sales representative a ctively involved in care, trying to [...] Code Code System Name Reaction Severity Onset 272533 RxNorm Bactrim ? ? ? 9361154 RxNorm Dabigatran Etexilate ? ? ? 218535 RxNorm Dexlansoprazole ? ? ? 256549 RxNorm Dilaudid ? ? ? 3640 RxNorm Doxycycline ? ? ? 6211 RxNorm Lactose ? ? ? 117580 RxNorm Moxifloxacin ? ? ? 81691 RxNorm Vancomycin ? ? ? Notes: egg [...] you have a medical power of Y mobile application developer? What was the date of your most [...] do you live? Apartment Notes: ILF at [facility] What is your relationship status? Functional Status Unknown. Past Encounters 05/25/2022 Acute Dermatitis; Chronic Insomnia; Dry Eyes; Fracture of Superior Pubic Ramus; Myelodysplastic Syndrome (Clinical); Weight Loss; Hypothyroidism Lucila Engle TREATING PLANT SUPERVISOR: [address], [place] [address], Ph. 05/23/2022 Weight Loss; Myelodysplastic Syndrome (C linical); Hypothyroidism Lucila Engle TREATING PLANT SUPERVISOR: [address], [place] [address], Ph. 05/22/2022 Dry Eyes GUILLERMO Chiu: [address], [place] [address], Ph. 05/19/2022 Weight Loss; Atrial Fibrillation; Chroni c Hyponatremia; Chronic Obstructive Lung Disease; Chronic Tremor; Hypothyroidism; Myelodysplastic Syndrome (Clinical); Anemia; Gastroesophageal Reflux Disease wit hout Esophagitis; Orthostatic Hypotensio n; Parkinson's Disease; Restless Legs GUILLERMO Chiu: [address], [place] [address], Ph. 05/15/2022 Chronic Hyponatremia; Anemia; Acute Cons tipation; Orthostatic Hypotension; Pain of Right Shoulder Joint GUILLERMO Chiu: [address], [place] [address], Ph. 05/08/2022 Anemia GUILLERMO Chiu: [address], [place] [address], Ph. 05/04/2022 Sore Throat Symptom; Weight Loss; Chroni c Hyponatremia; Anemia; Atrial Fibrillation; Chronic Obstructive Lung Disease; Gastroesophageal Reflux Disease without Esophagitis; Myelodysplastic Syndrome (Clin ical); Hypothyroidism; Parkinson's Disea se; Restless Legs; Orthostatic Hypotension; Chronic Pain; Nausea; Chronic Constipation; Subdural Hematoma; Fracture of Superior Pubic Ramus; Fracture of Inferior Pubic Ramus; Chronic Tremor Lucila Engle TREATING PLANT SUPERVISOR: [address] [place] [address], Ph. 05/01/2022 Weight Loss; Chronic Hyponatremia; Anemi a Alejandrina Siegel, BICYCLE REPAIRMAN: [address] [place] [address], Ph. 04/28/2022 Atrial Fibrillation; Chronic Obstructive Lung Disease; Gastroesophageal Reflux Disease without Esophagitis; Myelodysplastic Syndrome (Clinical); Hypothyroidism; Parkinson's Disease; Restless Legs; Orthostatic Hypotension; Chronic Pain Maddy Smith MD: [address] [place] [address], Ph. 04/25/2022 Myelodysplastic Syndrome (Clinical); Par kinson's Disease; Chronic Obstructive Lung Disease; Acute Low Back Pain; Orthostatic Hypotension; Nausea; Anemia; Chronic Hyponatremia; Atrial Fibrillation; Chron ic Constipation; Subdural Hematoma; Frac ture of Superior Pubic Ramus; Fracture of Inferior Pubic Ramus; Hypothyroidism; Chronic Tremor Lucila Engle TREATING PLANT SUPERVISOR: [address] [place] [address], Ph. History of Present Illness Note: <div>Ximena [...] 141, na 139, k 4.2, bun 24, sql database programmer 0.95, sabi 7.4</div><div>03/20/22 na 139, k 3.5, bun 28, sql database programmer 0.88, sabi 7.5</div><div>03/27/22 wbc 3.3 , hgb 7.1, hct 21.9, plt 149, na 134, k 4, bun 13, sql database programmer 0.78, sabi 8</ div><div>04/03/22 wbc 4, hgb 7.3, hct 22.3, plt 207, na 132, k 4.5 , bun 17, sql database programmer 0.82, sabi 8</div><div>04/10/22-WBC-3.4, H/H-6.6/20.9, plts-177, BUN/Cr-16/0.97, GFR-55, Na+1 31, K+4.5, glu-61</div><div>04/17: wbc 3.1, hgb 7.3, plt 152. Na 13 0, K 3.8, Bun13, Cr. 0.74, glu 65. </div><div>04/25: wbc 2.7, hgb 6.5, plt 141. </div><div>05/01/22 wbc 3.8, hgb 7.4, hct 22.9, plt 168, na 132, k 4.4, bun 17, sql database programmer 0.69, sabi 7.7</div><div>05/08/22 wb c 4.1, hgb 6.8, hct 21.4, plt 149, na 133, k 4.3, bun 20, sql database programmer 0.91 , sabi 7.7</div><div>05/15/22: wbc 4.5, h&h 9.3/29.4, mchc 31.6 , rdw 21.4, plt 195, gluc 65, sodium 134, k+ 4.3, chloride 103, c o2 25, gap 6, bun 18, creat 0.88, eGFR >60, calcium 8.3</div><div>: hgb 7.6, TSH 25.08</div>
--- OUTSIDE RECORDS SUMMARY | 2022-06-19 01:28 | XMS_ITS | Encounter Summary ---
:1935 Author Care Team Providers Name Role Phone Art Ortiz Primary Care Provider [phone] Delonte Anglin - 4th Floor OTHER [phone] Reason for Visit Acute Rounding Visit Assessment [...] Code Code System Name Reaction Severity Onset 846831 RxNorm Bactrim ? ? ? 2832749 RxNorm Dabigatran Etexilate ? ? ? 694494 RxNorm Dexlansoprazole ? ? ? 050442 RxNorm Dilaudid ? ? ? 3640 RxNorm Doxycycline ? ? ? 6211 RxNorm Lactose ? ? ? 374893 RxNorm Moxifloxacin ? ? ? 63641 RxNorm Vancomycin ? ? ? Notes: egg [...] you have a medical power of Y state's attorney? What was the date of your [...] do you live? Apartment Notes: ILF at [facility] What is your relationship status? Functional Status Unknown. Past Encounters 05/22/2022 Dry Eyes GUILLERMO Chiu: [address], [place] [address], Ph. 05/19/2022 Weight Loss; Atrial Fibrillation; Chroni c Hyponatremia; Chronic Obstructive Lung Disease; Chronic Tremor; Hypothyroidism; Myelodysplastic Syndrome (Clinical); Anemia; Gastroesophageal Reflux Disease wit hout Esophagitis; Orthostatic Hypotensio n; Parkinson's Disease; Restless Legs GUILLERMO Chiu: [address], [place] [address], Ph. 05/15/2022 Chronic Hyponatremia; Anemia; Acute Cons tipation; Orthostatic Hypotension; Pain of Right Shoulder Joint GUILLERMO Chiu: [address] [place], [place] [address], Ph. 05/08/2022 Anemia GUILLERMO Chiu: [address] [place], [place] [address], Ph. 05/04/2022 Sore Throat Symptom; Weight Loss; Chroni c Hyponatremia; Anemia; Atrial Fibrillation; Chronic Obstructive Lung Disease; Gastroesophageal Reflux Disease without Esophagitis; Myelodysplastic Syndrome (Clin ical); Hypothyroidism; Parkinson's Disea se; Restless Legs; Orthostatic Hypotension; Chronic Pain; Nausea; Chronic Constipation; Subdural Hematoma; Fracture of Superior Pubic Ramus; Fracture of Inferior Pubic Ramus; Chronic Tremor Lucila Engle NP: [address] [place] [place] [address], Ph. 05/01/2022 Weight Loss; Chronic Hyponatremia; Anemi a GUILLERMO Chiu: [address] [place] [address], Ph. 04/28/2022 Atrial Fibrillation; Chronic Obstructive Lung Disease; Gastroesophageal Reflux Disease without Esophagitis; Myelodysplastic Syndrome (Clinical); Hypothyroidism; Parkinson's Disease; Restless Legs; Orthostatic Hypotension; Chronic Pain Maddy Smith MD: [address] [place] [address], Ph. 04/25/2022 Myelodysplastic Syndrome (Clinical); Par kinson's Disease; Chronic Obstructive Lung Disease; Acute Low Back Pain; Orthostatic Hypotension; Nausea; Anemia; Chronic Hyponatremia; Atrial Fibrillation; Chron ic Constipation; Subdural Hematoma; Frac ture of Superior Pubic Ramus; Fracture of Inferior Pubic Ramus; Hypothyroidism; Chronic Tremor Lucila Engle POLICY INTERN: [address] [place] [address], Ph. History of Present Illness Note: <div>A [...] 141, na 139, k 4.2, bun 24, seal mixer 0.95, sabi 7.4</div><div>03/20/22 na 139, k 3.5, bun 28, seal mixer 0.88, sabi 7.5</div><div>03/27/22 wbc 3.3 , hgb 7.1, hct 21.9, plt 149, na 134, k 4, bun 13, seal mixer 0.78, sabi 8</ div><div>04/03/22 wbc 4, hgb 7.3, hct 22.3, plt 207, na 132, k 4.5 , bun 17, seal mixer 0.82, sabi 8</div><div>04/10/22-WBC-3.4, H/H-6.6/20.9, plts-177, BUN/Cr-16/0.97, GFR-55, Na+1 31, K+4.5, glu-61</div><div>04/17: wbc 3.1, hgb 7.3, plt 152. Na 13 0, K 3.8, Bun13, Cr. 0.74, glu 65. </div><div>04/25: wbc 2.7, hgb 6.5, plt 141. </div><div>05/01/22 wbc 3.8, hgb 7.4, hct 22.9, plt 168, na 132, k 4.4, bun 17, seal mixer 0.69, sabi 7.7</div><div>05/08/22 wb c 4.1, hgb 6.8, hct 21.4, plt 149, na 133, k 4.3, bun 20, seal mixer 0.91 , sabi 7.7</div><div>05/15/22: wbc 4.5, h&h 9.3/29.4, mchc 31.6 , rdw 21.4, plt 195, gluc 65, sodium 134, k+ 4.3, chloride 103, c o2 25, gap 6, bun 18, creat 0.88, eGFR >60, calcium 8.3</div>
--- OUTSIDE RECORDS SUMMARY | 2022-06-19 01:28 | XMS_ITS | Encounter Summary ---
:1935 Author Care Team Providers Name Role Phone Art Ortiz Primary Care Provider [phone] Delonte Anglin - 4th Floor OTHER [phone] Reason for Visit Acute Rounding Visit Assessment and Plan Assessment Note AGREE WITH REINFORCED CONCRETE INSPECTOR STUDENT 1. Atrial fibrillation Assessment: - Rate [...] Suspect change in detergent facility uses, but turf farm worker denies any changes. Plan: - Calamine [...] weight falls again. - Monitor weight - Vacuum Repairer consult as needed - Will ensure pt [...] Code Code System Name Reaction Severity Onset 580945 RxNorm Bactrim ? ? ? 9544120 RxNorm Dabigatran Etexilate ? ? ? 206944 RxNorm Dexlansoprazole ? ? ? 612160 RxNorm Dilaudid ? ? ? 3640 RxNorm Doxycycline ? ? ? 6211 RxNorm Lactose ? ? ? 014116 RxNorm Moxifloxacin ? ? ? 16004 RxNorm Vancomycin ? ? ? Notes: egg [...] you have a medical power of Y patent attorney? What is your relationship status? What is [...] Y Note s: CPR ok, DNI ok [facility] Do you use any illicit or N recreational drugs? Where do you live? Apartment Notes: ILF at [facility] Functional Status Unknown. Past Encounters 06/12/2022 Atrial Fibrillation; Chronic Obstructive Lung Disease; Eruption; Myelodysplastic Syndrome (Clinical); Weight Loss; Hypocalcemia GUILLERMO Chiu: [address] [place] [address], Ph. 06/08/2022 Chronic Hyponatremia; Hyperkalemia; Anem ia; Hypothyroidism; Parkinson's Disease; Weight Loss; Orthostatic Hypotension; Atrial Fibrillation; Chronic Constipation; Chronic Obstructive Lung Disease; Gastro esophageal Reflux Disease without Esopha gitis; Electrolyte Imbalance Lucila Engle REINFORCED CONCRETE INSPECTOR: [address] [place] [address], Ph. 05/25/2022 Acute Dermatitis; Chronic Insomnia; Dry Eyes; Fracture of Superior Pubic Ramus; Myelodysplastic Syndrome (Clinical); Weight Loss; Hypothyroidism Lucila Engle REINFORCED CONCRETE INSPECTOR: [address] [place] [address], Ph. 05/23/2022 Weight Loss; Myelodysplastic Syndrome (C linical); Hypothyroidism Lucila Engle REINFORCED CONCRETE INSPECTOR: [address] [place] [address], Ph. 05/22/2022 Dry Eyes GUILLERMO Chiu: [address] [place] [address], Ph. 05/19/2022 Weight Loss; Atrial Fibrillation; Chroni c Hyponatremia; Chronic Obstructive Lung Disease; Chronic Tremor; Hypothyroidism; Myelodysplastic Syndrome (Clinical); Anemia; Gastroesophageal Reflux Disease wit hout Esophagitis; Orthostatic Hypotensio n; Parkinson's Disease; Restless Legs GUILLERMO Chiu: [address] [place] [address], Ph. 05/15/2022 Chronic Hyponatremia; Anemia; Acute Cons tipation; Orthostatic Hypotension; Pain of Right Shoulder Joint GUILLERMO Chiu: [address] [place] [address], Ph. History of Present Illness Note: <div>Pt seen for acute rounding visit. Pt is at baseline except for a pruritic, non-painful rash which recently broke out on her legs, axillae, and arms. She has no other complaints. She has been receiving [facility] blood transfusions at [facility].</div><div>
</div><div>Denies SOB, chest discomfort, nausea, vomiting, abdominal [...] 168, na 132, k 4.4, bun 17, night monitor 0.69, sabi 7.7</d iv><div>05/08/22 wbc 4.1, hgb 6.8, hct 21.4, plt 149, na 133, k 4.3 , bun 20, night monitor 0.91, sabi 7.7</div><div>05/15/22: wbc 4 .5, h&h [...]
--- OUTSIDE RECORDS SUMMARY | 2022-06-19 01:28 | XMS_ITS | Encounter Summary ---
:1935 Author Care Team Providers Name Role Phone Art Ortiz Primary Care Provider [phone] Delonte Derrek - 4th Floor OTHER [phone] Reason for Visit Acute Rounding Visit Assessment and Plan 1. Weight loss Family updated Increased Remeron to 15mg q HS Continue Boost/supplements - materials planning manager a ctively involved in care, trying to [...] Code Code System Name Reaction Severity Onset 977254 RxNorm Bactrim ? ? ? 6754273 RxNorm Dabigatran Etexilate ? ? ? 743848 RxNorm Dexlansoprazole ? ? ? 675053 RxNorm Dilaudid ? ? ? 3640 RxNorm Doxycycline ? ? ? 6211 RxNorm Lactose ? ? ? 812243 RxNorm Moxifloxacin ? ? ? 42638 RxNorm Vancomycin ? ? ? Notes: egg [...] do you live? Apartment Notes: ILF at [facility] What is your relationship status? Functional Status Unknown. Past Encounters 05/23/2022 Weight Loss; Myelodysplastic Syndrome (C linical); Hypothyroidism Lucila Engle TRUCK DRIVING INSTRUCTOR: [address], [place] [address], Ph. 05/22/2022 Dry Eyes GUILLERMO Chiu: [address], [place], [place] [address], Ph. 05/19/2022 Weight Loss; Atrial Fibrillation; Chroni c Hyponatremia; Chronic Obstructive Lung Disease; Chronic Tremor; Hypothyroidism; Myelodysplastic Syndrome (Clinical); Anemia; Gastroesophageal Reflux Disease wit hout Esophagitis; Orthostatic Hypotensio n; Parkinson's Disease; Restless Legs GUILLERMO Chiu: [address], [place], [place] [address], Ph. 05/15/2022 Chronic Hyponatremia; Anemia; Acute Cons tipation; Orthostatic Hypotension; Pain of Right Shoulder Joint GUILLERMO Chiu: [address], [place], [place] [address], Ph. 05/08/2022 Anemia GUILLERMO Chiu: [address], [place], [place] [address], Ph. 05/04/2022 Sore Throat Symptom; Weight Loss; Chroni c Hyponatremia; Anemia; Atrial Fibrillation; Chronic Obstructive Lung Disease; Gastroesophageal Reflux Disease without Esophagitis; Myelodysplastic Syndrome (Clin ical); Hypothyroidism; Parkinson's Disea se; Restless Legs; Orthostatic Hypotension; Chronic Pain; Nausea; Chronic Constipation; Subdural Hematoma; Fracture of Superior Pubic Ramus; Fracture of Inferior Pubic Ramus; Chronic Tremor Lucila Engle TRUCK DRIVING INSTRUCTOR: [address], [place] [address], Ph. 05/01/2022 Weight Loss; Chronic Hyponatremia; Anemi a GUILLERMO Chiu: [address], [place], [place] [address], Ph. 04/28/2022 Atrial Fibrillation; Chronic Obstructive Lung Disease; Gastroesophageal Reflux Disease without Esophagitis; Myelodysplastic Syndrome (Clinical); Hypothyroidism; Parkinson's Disease; Restless Legs; Orthostatic Hypotension; Chronic Pain Maddy Smith MD: [address] [place] [address], Ph. 04/25/2022 Myelodysplastic Syndrome (Clinical); Par kinson's Disease; Chronic Obstructive Lung Disease; Acute Low Back Pain; Orthostatic Hypotension; Nausea; Anemia; Chronic Hyponatremia; Atrial Fibrillation; Chron ic Constipation; Subdural Hematoma; Frac ture of Superior Pubic Ramus; Fracture of Inferior Pubic Ramus; Hypothyroidism; Chronic Tremor Lucila Engle TRUCK DRIVING INSTRUCTOR: [address] [place] [address], Ph. History of Present Illness Note: <div>Ximena [...] 141, na 139, k 4.2, bun 24, docket specialist 0.95, sabi 7.4</div><div>03/20/22 na 139, k 3.5, bun 28, docket specialist 0.88, sabi 7.5</div><div>03/27/22 wbc 3.3 , hgb 7.1, hct 21.9, plt 149, na 134, k 4, bun 13, docket specialist 0.78, sabi 8</ div><div>04/03/22 wbc 4, hgb 7.3, hct 22.3, plt 207, na 132, k 4.5 , bun 17, docket specialist 0.82, sabi 8</div><div>04/10/22-WBC-3.4, H/H-6.6/20.9, plts-177, BUN/Cr-16/0.97, GFR-55, Na+1 31, K+4.5, glu-61</div><div>04/17: wbc 3.1, hgb 7.3, plt 152. Na 13 0, K 3.8, Bun13, Cr. 0.74, glu 65. </div><div>04/25: wbc 2.7, hgb 6.5, plt 141. </div><div>05/01/22 wbc 3.8, hgb 7.4, hct 22.9, plt 168, na 132, k 4.4, bun 17, docket specialist 0.69, sabi 7.7</div><div>05/08/22 wb c 4.1, hgb 6.8, hct 21.4, plt 149, na 133, k 4.3, bun 20, docket specialist 0.91 , sabi 7.7</div><div>05/15/22: wbc 4.5, h&h 9.3/29.4, mchc 31.6 , rdw 21.4, plt 195, gluc 65, sodium 134, k+ 4.3, chloride 103, c o2 25, gap 6, bun 18, creat 0.88, eGFR >60, calcium 8.3</div>
--- OUTSIDE RECORDS SUMMARY | 2022-06-19 01:29 | XMS_ITS | Encounter Summary ---
:1935 Author Care Team Providers Name Role Phone Art Ortiz Primary Care Provider [phone] [facility] [place] - 4th Floor OTHER [phone] Reason for Visit Acute Rounding Visit Assessment [...] - f orward results Dr. Cantu, [address] [facility], 2. Parkinson's disease Seen by Neuro yesterday, and due to comp laints of increased tremors, rytary 23.75/95 1 tid x 1 wk, then increase to 2 tid if salena. 1 tab ok. Continue primidone 100 mg qhs, gabapenti n 200 mg qhs, and Requip 1.5 mg TID. PT/OT as needed. Had F/U with neuro, Tiffanie Cheng NP, [facility], [address], . Uncertain if follow up appt. [...] Code Code System Name Reaction Severity Onset 149853 RxNorm Bactrim ? ? ? 2889332 RxNorm Dabigatran Etexilate ? ? ? 859416 RxNorm Dexlansoprazole ? ? ? 190689 RxNorm Dilaudid ? ? ? 3640 RxNorm Doxycycline ? ? ? 6211 RxNorm Lactose ? ? ? 157204 RxNorm Moxifloxacin ? ? ? 19370 RxNorm Vancomycin ? ? ? Notes: egg [...] you have a medical power of Y auto hauler? What was the date of your most [...] do you live? Apartment Notes: ILF at [facility] What is your relationship status? Functional Status Unknown. Past Encounters 04/20/2022 Myelodysplastic Syndrome (Clinical); Par kinson's Disease; Acute Low Back Pain; Nausea; Anemia; Chronic Constipation; Subdural Hematoma; Fracture of Superior Pubic Ramus; Fracture of Inferior Pubic Ramus ; Atrial Fibrillation; Hypothyroidism; O rthostatic Hypotension; Chronic Hyponatremia; Chronic Tremor Lucila Engle FIRST AID TRAINER: [address], [place] [address], Ph. 04/18/2022 Myelodysplastic Syndrome (Clinical); Adam sea; Anemia; Chronic Constipation; Parkinson's Disease; Subdural Hematoma; Fracture of Superior Pubic Ramus; Fracture of Inferior Pubic Ramus; Atrial Fibrillation ; Hypothyroidism; Orthostatic Hypotensio n; Chronic Hyponatremia Lucila Engle FIRST AID TRAINER: [address], [place] [address], Ph. 04/10/2022 Myelodysplastic Syndrome (Clinical); Ane toby; Chronic Constipation; Parkinson's Disease; Subdural Hematoma; Fracture of Superior Pubic Ramus; Fracture of Inferior Pubic Ramus; Atrial Fibrillation; Hypoth yroidism; Orthostatic Hypotension; Chron ic Hyponatremia Marija Morrow MD: [address], [place] [address], Ph. 04/07/2022 Anemia; Parkinson's Disease GUILLERMO Chiu: [address], [facility] [place] [address], Ph. 04/06/2022 Anemia; Acute Constipation; Fracture of Superior Pubic Ramus; Atrial Fibrillation; Hypothyroidism; Orthostatic Hypotension; Myelodysplastic Syndrome (Clinical); Chronic Hyponatremia Lucila Engle FIRST AID TRAINER: [address], [place] [address], Ph. 04/03/2022 Anemia; Acute Constipation GUILLERMO Chiu: [address], [place] [address], Ph. 03/31/2022 Acute Constipation GUILLERMO Chiu: [address], [facility] [place] [address], Ph. 03/30/2022 Fracture of Superior Pubic Ramus Lucila Engle FIRST AID TRAINER: [address], [place] [address], Ph. 03/27/2022 Anemia; Chronic Hyponatremia LEEANN ChiuP: [address], [place] [address], Ph. 03/24/2022 Atrial Fibrillation; Chronic Obstructive Lung Disease; Hypothyroidism; Orthostatic Hypotension; Myelodysplastic Syndrome (Clinical); Parkinson's Disease; Restless Legs; Chronic Hyponatremia; Fall; Anemi a; Chronic Tremor; Gastroesophageal Refl ux Disease without Esophagitis; Fracture of Single Pubic Ramus LEEANN ChiuP: [address], [place] [address], Ph. 03/20/2022 Anemia; Gastroesophageal Reflux Disease without Esophagitis LEEANN ChiuP: [address] , [place] [address], Ph. History of Present Illness Note: <div>Ximena [...] </div><div>
</div><div>She saw Neuro yesterday (Tiffanie Cheng FIRST AID TRAINER, [phone]) who recommended trialing Rytary 23. 75/95 mg [...] 141, na 139, k 4.2, bun 24, bus attendant 0.95, sabi 7.4</div><div>03/20/22 na 139, k 3.5, bun 28, bus attendant 0.88, sabi 7.5</div><div>03/27/22 wbc 3.3 , hgb 7.1, hct 21.9, plt 149, na 134, k 4, bun 13, bus attendant 0.78, sabi 8</ div><div>04/03/22 wbc 4, hgb 7.3, hct 22.3, plt 207, na 132, k 4.5 , bun 17, bus attendant 0.82, sabi 8</div><div>04/10/22-WBC-3.4, H/H-6.6/20.9, plts-177, BUN/Cr-16/0.97, GFR-55, Na+1 31, K+4.5, glu-61</div><div>04/17: wbc 3.1, hgb 7.3, plt 152. Na 13 0, K 3.8, Bun13, Cr. 0.74, glu 65. </div>
--- OUTSIDE RECORDS SUMMARY | 2022-06-19 01:29 | XMS_ITS | Encounter Summary ---
:1935 Author Care Team Providers Name Role Phone Art Ortiz Primary Care Provider [phone] [employer] [facility] - 4th Floor OTHER [phone] Reason for Visit Acute Rounding Visit Assessment and Plan 1. Anemia follows with Dr Alondra parks through [facility] continue to monitor labs is getting anemia injections through the re noted to be symptomatic with sob transfusion scheduled for sunday at 8 am monitor 2. Parkinson's disease primidone 100 mg q hs gabapentin 200 mg q hs requip 1.5 mg tid monitor daughter wants meds adjusted-will have h er see her neuro Tiffaniekendal Cheng at [address] [place], [place] [phone] Discussion Note: None recorded.Patient educational handouts: No [...] Code Code System Name Reaction Severity Onset 367721 RxNorm Bactrim ? ? ? 7198887 RxNorm Dabigatran Etexilate ? ? ? 639717 RxNorm Dexlansoprazole ? ? ? 954019 RxNorm Dilaudid ? ? ? 3640 RxNorm Doxycycline ? ? ? 6211 RxNorm Lactose ? ? ? 932783 RxNorm Moxifloxacin ? ? ? 69835 RxNorm Vancomycin ? ? ? Notes: egg [...] you have a medical power of Y employee benefits attorney? What was the date of your [...] do you live? Apartment Notes: ILF at [facility] What is your relationship status? Functional Status Unknown. Past Encounters 04/07/2022 Anemia; Parkinson's Disease Alejandrina Siegel, CARPET SEWER: [address], [place] [address], Ph. 04/06/2022 Anemia; Acute Constipation; Fracture of Superior Pubic Ramus; Atrial Fibrillation; Hypothyroidism; Orthostatic Hypotension; Myelodysplastic Syndrome (Clinical); Chronic Hyponatremia Lucila Engle IBM MAINFRAME SYSTEMS PROGRAMMER: [address], [place] [address], Ph. 04/03/2022 Anemia; Acute Constipation GUILLERMO Chiu: [address], [place] [address], Ph. 03/31/2022 Acute Constipation GUILLERMO Chiu: [address], [place] [address], Ph. 03/30/2022 Fracture of Superior Pubic Ramus Lucila Engle [employer] MAINFRAME SYSTEMS PROGRAMMER: [address], [place] [address], Ph. 03/27/2022 Anemia; Chronic Hyponatremia GUILLERMO Chiu: [address], [place] [address], Ph. 03/24/2022 Atrial Fibrillation; Chronic Obstructive Lung Disease; Hypothyroidism; Orthostatic Hypotension; Myelodysplastic Syndrome (Clinical); Parkinson's Disease; Restless Legs; Chronic Hyponatremia; Fall; Anemi a; Chronic Tremor; Gastroesophageal Refl ux Disease without Esophagitis; Fracture of Single Pubic Ramus GUILLERMO Chiu: [address], [place] [address], Ph. 03/20/2022 Anemia; Gastroesophageal Reflux Disease without Esophagitis GUILLERMO Chiu: [address], [place] [address], Ph. 03/13/2022 Anemia; Gastroesophageal Reflux Disease without Esophagitis GUILLERMO Chiu: [address], [place] [address], Ph. 03/10/2022 Urinary Tract Infectious Disease; Anemia ; Myelodysplastic Syndrome (Clinical); Fracture of Single Pubic Ramus GUILLERMO Chiu: [address], [place] [address], Ph. 03/07/2022 Chronic Hyponatremia; Fracture of Single Pubic Ramus; Atrial Fibrillation LEEANN ChiuP: [address], [facility] [place] [address], Ph. History of Present Illness Note: <div>A [...] 141, na 139, k 4.2, bun 24, foam rubber curer 0.95, sabi 7.4</div><div>03/20/22 na 139, k 3.5, bun 28, foam rubber curer 0.88, sabi 7.5</div><div>03/27/22 wbc 3.3 , hgb 7.1, hct 21.9, plt 149, na 134, k 4, bun 13, foam rubber curer 0.78, sabi 8</ div><div>04/03/22 wbc 4, hgb 7.3, hct 22.3, plt 207, na 132, k 4.5 , bun 17, foam rubber curer 0.82, sabi 8</div>
--- OUTSIDE RECORDS SUMMARY | 2022-06-19 01:29 | XMS_ITS | Encounter Summary ---
:1935 Author Care Team Providers Name Role Phone Art Ortiz Primary Care Provider [phone] [place] - 4th Floor OTHER [phone] Reason for Visit Acute Rounding Visit Assessment and Plan 1. Anemia follows with Dr Alondra parks through [facility] she is s/p transfusion and doing [...] Code Code System Name Reaction Severity Onset 387938 RxNorm Bactrim ? ? ? 6058334 RxNorm Dabigatran Etexilate ? ? ? 255687 RxNorm Dexlansoprazole ? ? ? 104927 RxNorm Dilaudid ? ? ? 3640 RxNorm Doxycycline ? ? ? 6211 RxNorm Lactose ? ? ? 612800 RxNorm Moxifloxacin ? ? ? 55405 RxNorm Vancomycin ? ? ? Notes: egg [...] you have a medical power of Y collections attorney? What was the date of your most 03/03/2022 recent tobacco screening? Do you have an advanced directive? Y Note s: CPR ok, DNI ok hospital Do you use any illicit or N recreational drugs? Where do you live? Apartment Notes: ILF at [facility] What is your relationship status? What is your level of alcohol None consumption? Legal Guardian? N Do you have an out of hospital DNR? N Do you or have you ever used any N other forms of tobacco or nicotine? Functional Status Unknown. Past Encounters 03/20/2022 Anemia; Gastroesophageal Reflux Disease without Esophagitis GUILLERMO Chiu: [address] [place] [address], Ph. 03/13/2022 Anemia; Gastroesophageal Reflux Disease without Esophagitis GUILLERMO Chiu: [address] [place] [address], Ph. 03/10/2022 Urinary Tract Infectious Disease; Anemia ; Myelodysplastic Syndrome (Clinical); Fracture of Single Pubic Ramus GUILLERMO Chiu: [address] [place] [address], Ph. 03/07/2022 Chronic Hyponatremia; Fracture of Single Pubic Ramus; Atrial Fibrillation GUILLERMO Chiu: [address] [place] [address], Ph. 03/03/2022 Subdural Hematoma; Fracture of Superior Pubic Ramus; Fracture of Inferior Pubic Ramus; Myelodysplastic Syndrome (Clinical); Atrial Fibrillation; Chronic Obstructive Lung Disease; Hypothyroidism; Orthost atic Hypotension; Parkinson's Disease; R estless Legs; Chronic Hyponatremia; Fall Marija Morrow MD: [address] [facility] [place] [address], Ph. 03/02/2022 Subdural Hematoma; Fracture of Single Pu bic Ramus; Myelodysplastic Syndrome (Clinical); Atrial Fibrillation; Chronic Obstructive Lung Disease; Hypothyroidism; Orthostatic Hypotension; Parkinson's Disease; Restless Legs; Chronic Hyponatremia; Fall Delilah Diehl : [address] [facility] [place] [address], Ph. History of Present Illness Note: <div>A [...] 141, na 139, k 4.2, bun 24, clinical rn 0.95, sabi 7.4</div><div>03/20/22 na 139, k 3.5, bun 28, clinical rn 0.88, sabi 7.5</div>
--- OUTSIDE RECORDS SUMMARY | 2022-06-19 01:29 | XMS_ITS | Encounter Summary ---
:1935 Author Care Team Providers Name Role Phone Art Ortiz Primary Care Provider [phone] [place] [place] - 4th Floor OTHER [phone] Reason for Visit Acute Rounding Visit Assessment [...] Code Code System Name Reaction Severity Onset 662596 RxNorm Bactrim ? ? ? 9572669 RxNorm Dabigatran Etexilate ? ? ? 090996 RxNorm Dexlansoprazole ? ? ? 038999 RxNorm Dilaudid ? ? ? 3640 RxNorm Doxycycline ? ? ? 6211 RxNorm Lactose ? ? ? 954053 RxNorm Moxifloxacin ? ? ? 67286 RxNorm Vancomycin ? ? ? Notes: egg [...] you have a medical power of Y assistant city attorney? What was the date of your [...] Apartment Notes: ILF at [facility] What is your relationship status? Functional Status Unknown. Past Encounters 04/06/2022 Anemia; Acute Constipation; Fracture of Superior Pubic Ramus; Atrial Fibrillation; Hypothyroidism; Orthostatic Hypotension; Myelodysplastic Syndrome (Clinical); Chronic Hyponatremia Lucila Engle ADMINISTRATIVE ASSISTANT OFFICE MANAGER: [address], [place] [address], Ph. 04/03/2022 Anemia; Acute Constipation GUILLERMO Chiu: [address], [place] [address], Ph. 03/31/2022 Acute Constipation GUILLERMO Chiu: [address], [place] [address], Ph. 03/30/2022 Fracture of Superior Pubic Ramus Lucila Engle NP: [address], [place] [address], Ph. 03/27/2022 Anemia; Chronic Hyponatremia GUILLERMO Chiu: [address], [place] [address], Ph. 03/24/2022 Atrial Fibrillation; Chronic Obstructive Lung Disease; Hypothyroidism; Orthostatic Hypotension; Myelodysplastic Syndrome (Clinical); Parkinson's Disease; Restless Legs; Chronic Hyponatremia; Fall; Anemi a; Chronic Tremor; Gastroesophageal Refl ux Disease without Esophagitis; Fracture of Single Pubic Ramus GUILLERMO Chiu: [address], [place] [address], Ph. 03/20/2022 Anemia; Gastroesophageal Reflux Disease without Esophagitis GUILLERMO Chiu: [address], [place] [address], Ph. 03/13/2022 Anemia; Gastroesophageal Reflux Disease without Esophagitis Alejandrina Siegel, HYDROGEN TREATER: [address], [place], [place] [address], Ph. 03/10/2022 Urinary Tract Infectious Disease; Anemia ; Myelodysplastic Syndrome (Clinical); Fracture of Single Pubic Ramus LEEANN ChiuP: [address], [place] [address], Ph. 03/07/2022 Chronic Hyponatremia; Fracture of Single Pubic Ramus; Atrial Fibrillation LEEANN ChiuP: [address], [place], [place] [address], Ph. History of Present Illness Note: <div>Ximena [...] 141, na 139, k 4.2, bun 24, graduate school dean 0.95, sabi 7.4</div><div>03/20/22 na 139, k 3.5, bun 28, graduate school dean 0.88, sabi 7.5</div><div>03/27/22 wbc 3.3 , hgb 7.1, hct 21.9, plt 149, na 134, k 4, bun 13, graduate school dean 0.78, sabi 8</ div><div>04/03/22 wbc 4, hgb 7.3, hct 22.3, plt 207, na 132, k 4.5 , bun 17, graduate school dean 0.82, sabi 8</div>
--- OUTSIDE RECORDS SUMMARY | 2022-06-19 01:29 | XMS_ITS | Encounter Summary ---
:1935 Author Care Team Providers Name Role Phone Art Ortiz Primary Care Provider [phone] [place] - 4th Floor OTHER [phone] Reason for Visit Routine Rounding routine rounding [...] Code Code System Name Reaction Severity Onset 817184 RxNorm Bactrim ? ? ? 3748128 RxNorm Dabigatran Etexilate ? ? ? 386384 RxNorm Dexlansoprazole ? ? ? 141427 RxNorm Dilaudid ? ? ? 3640 RxNorm Doxycycline ? ? ? 6211 RxNorm Lactose ? ? ? 044913 RxNorm Moxifloxacin ? ? ? 23998 RxNorm Vancomycin ? ? ? Notes: egg [...] you have a medical power of Y fraud manager? What was the date of your most [...] live? Apartment Notes: ILF at [facility] What is your relationship status? Functional Status Unknown. Past Encounters 04/28/2022 Atrial Fibrillation; Chronic Obstructive Lung Disease; Gastroesophageal Reflux Disease without Esophagitis; Myelodysplastic Syndrome (Clinical); Hypothyroidism; Parkinson's Disease; Restless Legs; Orthostatic Hypotension; Chronic Pain Maddy Smith MD: [address] [place] [address], Ph. 04/25/2022 Myelodysplastic Syndrome (Clinical); Par kinson's Disease; Chronic Obstructive Lung Disease; Acute Low Back Pain; Orthostatic Hypotension; Nausea; Anemia; Chronic Hyponatremia; Atrial Fibrillation; Chron ic Constipation; Subdural Hematoma; Frac ture of Superior Pubic Ramus; Fracture of Inferior Pubic Ramus; Hypothyroidism; Chronic Tremor Lucila Engle FRICTION WELDING MACHINE OPERATOR: [address] [place] [address], Ph. 04/20/2022 Myelodysplastic Syndrome (Clinical); Par kinson's Disease; Acute Low Back Pain; Nausea; Anemia; Chronic Constipation; Subdural Hematoma; Fracture of Superior Pubic Ramus; Fracture of Inferior Pubic Ramus ; Atrial Fibrillation; Hypothyroidism; O rthostatic Hypotension; Chronic Hyponatremia; Chronic Tremor Lucila Engle NP: [address] [place] [address], Ph. 04/18/2022 Myelodysplastic Syndrome (Clinical); Adam sea; Anemia; Chronic Constipation; Parkinson's Disease; Subdural Hematoma; Fracture of Superior Pubic Ramus; Fracture of Inferior Pubic Ramus; Atrial Fibrillation ; Hypothyroidism; Orthostatic Hypotensio n; Chronic Hyponatremia Lucila Engle NP: [address] [place] [address], Ph. 04/10/2022 Myelodysplastic Syndrome (Clinical); Ane toby; Chronic Constipation; Parkinson's Disease; Subdural Hematoma; Fracture of Superior Pubic Ramus; Fracture of Inferior Pubic Ramus; Atrial Fibrillation; Hypoth yroidism; Orthostatic Hypotension; Chron ic Hyponatremia Marija Morrow MD: [address], [place] [address], Ph. 04/07/2022 Anemia; Parkinson's Disease LEEANN ChiuP: [address], [place] [address], Ph. 04/06/2022 Anemia; Acute Constipation; Fracture of Superior Pubic Ramus; Atrial Fibrillation; Hypothyroidism; Orthostatic Hypotension; Myelodysplastic Syndrome (Clinical); Chronic Hyponatremia Lucila Engle FRICTION WELDING MACHINE OPERATOR: [address], [place] [address], Ph. 04/03/2022 Anemia; Acute Constipation LEEANN ChiuP: [address], [place] [address], Ph. 03/31/2022 Acute Constipation LEEANN ChiuP: [address], [place] [address], Ph. 03/30/2022 Fracture of Superior Pubic Ramus Lucila Engle FRICTION WELDING MACHINE OPERATOR: [address], [place] [address], Ph. History of Present Illness Note: <div>This 87 year old female assisted care resident is seen today for routine rounding visit.</div><div>
</div><div>Medical history is remarkable for Parkinson's disease, myelodysplastic syndrome, GERD, hypothyroidism, COPD, afib</div><div>
</div><div>Patient was admitted to [facility] in February 2022 after fall and [facility] hospitalization for SDH and pelvic fractures. She has been participating in rehab services at [facility]. Patient is seen regularly by hematology/oncology. Most [...]
</div><div>Advanced directives: no MOLST scanned into new [facility] record</div>Review of Systems: ROS as noted in [...] 141, na 139, k 4.2, bun 24, shank faker 0.95, sabi 7.4</div><div>03/20/22 na 139, k 3.5, bun 28, shank faker 0.88, sabi 7.5</div><div>03/27/22 wbc 3.3 , hgb 7.1, hct 21.9, plt 149, na 134, k 4, bun 13, shank faker 0.78, sabi 8</ div><div>04/03/22 wbc 4, hgb 7.3, hct 22.3, plt 207, na 132, k 4.5 , bun 17, shank faker 0.82, sabi 8</div><div>04/10/22-WBC-3.4, H/H-6.6/20.9, plts-177, BUN/Cr-16/0.97, GFR-55, Na+1 31, K+4.5, glu-61</div><div>04/17: wbc 3.1, hgb 7.3, plt 152. Na 13 0, K 3.8, Bun13, Cr. 0.74, glu 65. </div><div>04/25: wbc 2.7, hgb 6.5, plt 141. </div>
--- OUTSIDE RECORDS SUMMARY | 2022-06-19 01:29 | XMS_ITS | Encounter Summary ---
:1935 Author Care Team Providers Name Role Phone Art Ortiz Primary Care Provider [phone] [place] - 4th Floor OTHER [phone] Reason for Visit Acute Rounding Visit Assessment and Plan Assessment Note 03/02: wbc 2.4, hgb 8.3, hct 24.5, na 13 2, k 4.8, bun 22, creat 0.84, plt 123 1. Sore throat symptom swab for covid rinse mouth after anoro use daily salt water gargles prn monitor 2. Weight loss remeron 7.5 mg q hs just added monitor weights manager casino following cater to food preferences 3. Chronic hyponatremia Continue 1500 cc fluid restrict monitor labs sodium 132. 4. Anemia follows with Dr Alondra parks through [facility] luspatercept treatments q 3 weeks - [...] Code Code System Name Reaction Severity Onset 353397 RxNorm Bactrim ? ? ? 6721119 RxNorm Dabigatran Etexilate ? ? ? 761630 RxNorm Dexlansoprazole ? ? ? 302459 RxNorm Dilaudid ? ? ? 3640 RxNorm Doxycycline ? ? ? 6225 RxNorm Lactose ? ? ? 696511 RxNorm Moxifloxacin ? ? ? 94857 RxNorm Vancomycin ? ? ? Notes: egg [...] you have a medical power of Y state attorney? What was the date of your [...] do you live? Apartment Notes: ILF at [facility] What is your relationship status? [...] Inferior Pubic Ramus; Chronic Tremor Lucila Engle TECHNICAL SUPPORT ANALYST: [address] [facility] [place] [address], Ph. 05/01/2022 Weight Loss; Chronic Hyponatremia; Anemi a LEEANN ChiuP: [address] [place] [address], Ph. 04/28/2022 Atrial Fibrillation; Chronic Obstructive Lung Disease; Gastroesophageal Reflux Disease without Esophagitis; Myelodysplastic Syndrome (Clinical); Hypothyroidism; Parkinson's Disease; Restless Legs; Orthostatic Hypotension; Chronic Pain Maddy Smith MD: [address] [place] [address], Ph. 04/25/2022 Myelodysplastic Syndrome (Clinical); Par kinson's Disease; Chronic Obstructive Lung Disease; Acute Low Back Pain; Orthostatic Hypotension; Nausea; Anemia; Chronic Hyponatremia; Atrial Fibrillation; Chron ic Constipation; Subdural Hematoma; Frac ture of Superior Pubic Ramus; Fracture of Inferior Pubic Ramus; Hypothyroidism; Chronic Tremor Lucila Engle TECHNICAL SUPPORT ANALYST: [address] [place] [address], Ph. 04/20/2022 Myelodysplastic Syndrome (Clinical); Par kinson's Disease; Acute Low Back Pain; Nausea; Anemia; Chronic Constipation; Subdural Hematoma; Fracture of Superior Pubic Ramus; Fracture of Inferior Pubic Ramus ; Atrial Fibrillation; Hypothyroidism; O rthostatic Hypotension; Chronic Hyponatremia; Chronic Tremor Lucila Engle TECHNICAL SUPPORT ANALYST: [address] [place] [address], Ph. 04/18/2022 Myelodysplastic Syndrome (Clinical); Adam sea; Anemia; Chronic Constipation; Parkinson's Disease; Subdural Hematoma; Fracture of Superior Pubic Ramus; Fracture of Inferior Pubic Ramus; Atrial Fibrillation ; Hypothyroidism; Orthostatic Hypotensio n; Chronic Hyponatremia Lucila Engle TECHNICAL SUPPORT ANALYST: [address] , [place] [address], Ph. 04/10/2022 Myelodysplastic Syndrome (Clinical); Ane toby; Chronic Constipation; Parkinson's Disease; Subdural Hematoma; Fracture of Superior Pubic Ramus; Fracture of Inferior Pubic Ramus; Atrial Fibrillation; Hypoth yroidism; Orthostatic Hypotension; Chron ic Hyponatremia Marija Morrow MD: [address] , [place] [address], Ph. 04/07/2022 Anemia; Parkinson's Disease LEEANN ChiuP: [address] , [place] [address], Ph. 04/06/2022 Anemia; Acute Constipation; Fracture of Superior Pubic Ramus; Atrial Fibrillation; Hypothyroidism; Orthostatic Hypotension; Myelodysplastic Syndrome (Clinical); Chronic Hyponatremia Lucila Engle TECHNICAL SUPPORT ANALYST: [address] [place] [address], Ph. 04/03/2022 Anemia; Acute Constipation GUILLERMO Chiu: [address] , [place] [address], Ph. History of Present Illness Note: <div>Ximena [...] 141, na 139, k 4.2, bun 24, process plant operator 0.95, sabi 7.4</div><div>03/20/22 na 139, k 3.5, bun 28, process plant operator 0.88, sabi 7.5</div><div>03/27/22 wbc 3.3 , hgb 7.1, hct 21.9, plt 149, na 134, k 4, bun 13, process plant operator 0.78, sabi 8</ div><div>04/03/22 wbc 4, hgb 7.3, hct 22.3, plt 207, na 132, k 4.5 , bun 17, process plant operator 0.82, sabi 8</div><div>04/10/22-WBC-3.4, H/H-6.6/20.9, plts-177, BUN/Cr-16/0.97, GFR-55, Na+1 31, K+4.5, glu-61</div><div>04/17: wbc 3.1, hgb 7.3, plt 152. Na 13 0, K 3.8, Bun13, Cr. 0.74, glu 65. </div><div>04/25: wbc 2.7, hgb 6.5, plt 141. </div><div>05/01/22 wbc 3.8, hgb 7.4, hct 22.9, plt 168, na 132, k 4.4, bun 17, process plant operator 0.69, sabi 7.7</div>
--- OUTSIDE RECORDS SUMMARY | 2022-06-19 01:29 | XMS_ITS | Encounter Summary ---
:1935 Author Care Team Providers Name Role Phone Art Ortiz Primary Care Provider [phone] [place] Anglin - 4th Floor OTHER [phone] Reason for Visit Acute Rounding Visit Assessment and Plan 1. Anemia follows with Dr Alondra parks through [facility] continue to monitor labs is getting [...] Code Code System Name Reaction Severity Onset 408463 RxNorm Bactrim ? ? ? 7333664 RxNorm Dabigatran Etexilate ? ? ? 522523 RxNorm Dexlansoprazole ? ? ? 403617 RxNorm Dilaudid ? ? ? 3640 RxNorm Doxycycline ? ? ? 6211 RxNorm Lactose ? ? ? 262860 RxNorm Moxifloxacin ? ? ? 82298 RxNorm Vancomycin ? ? ? Notes: egg [...] you have a medical power of Y title attorney? What was the date of your [...] do you live? Apartment Notes: ILF at [facility] What is your relationship status? Functional Status Unknown. Past Encounters 03/27/2022 Anemia; Chronic Hyponatremia LEEANN ChiuP: [address], [place] [address], Ph. 03/24/2022 Atrial Fibrillation; Chronic Obstructive Lung Disease; Hypothyroidism; Orthostatic Hypotension; Myelodysplastic Syndrome (Clinical); Parkinson's Disease; Restless Legs; Chronic Hyponatremia; Fall; Anemi a; Chronic Tremor; Gastroesophageal Refl ux Disease without Esophagitis; Fracture of Single Pubic Ramus GUILLERMO Chiu: [address], [place] [address], Ph. 03/20/2022 Anemia; Gastroesophageal Reflux Disease without Esophagitis GUILLERMO Chiu: [address], [place] [address], Ph. 03/13/2022 Anemia; Gastroesophageal Reflux Disease without Esophagitis GUILLERMO Chiu: [address], [place] [address], Ph. 03/10/2022 Urinary Tract Infectious Disease; Anemia ; Myelodysplastic Syndrome (Clinical); Fracture of Single Pubic Ramus GUILLERMO Chiu: [address], [place] [address], Ph. 03/07/2022 Chronic Hyponatremia; Fracture of Single Pubic Ramus; Atrial Fibrillation GUILLERMO Chiu: [address], [place] [address], Ph. 03/03/2022 Subdural Hematoma; Fracture of Superior Pubic Ramus; Fracture of Inferior Pubic Ramus; Myelodysplastic Syndrome (Clinical); Atrial Fibrillation; Chronic Obstructive Lung Disease; Hypothyroidism; Orthost atic Hypotension; Parkinson's Disease; R estless Legs; Chronic Hyponatremia; Fall Marija Morrow MD: [address] [place] [address], Ph. 03/02/2022 Subdural Hematoma; Fracture of Single Pu bic Ramus; Myelodysplastic Syndrome (Clinical); Atrial Fibrillation; Chronic Obstructive Lung Disease; Hypothyroidism; Orthostatic Hypotension; Parkinson's Disease; Restless Legs; Chronic Hyponatremia; Fall Delilah Stock: [address] [place] [address], Ph. History of Present Illness Note: <div>A 87 year old female being seen for a acute rounding visit. Patient is noted to be doingwell but continues to have anemia. She [facility] her [facility] and will be goingback as scheduled. 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 She does not have anyconcerns [...] 141, na 139, k 4.2, bun 24, rehab office coordinator 0.95, sabi 7.4</div><div>03/20/22 na 139, k 3.5, bun 28, rehab office coordinator 0.88, sabi 7.5</div><div>03/27/22 wbc 3.3 , hgb 7.1, hct 21.9, plt 149, na 134, k 4, bun 13, rehab office coordinator 0.78, sabi 8</ div>
--- OUTSIDE RECORDS SUMMARY | 2022-06-19 01:29 | XMS_ITS | Encounter Summary ---
:1935 Author Care Team Providers Name Role Phone Art Ortiz Primary Care Provider [phone] [place] Anglin - 4th Floor OTHER [phone] Reason for Visit Acute Rounding Visit Assessment and Plan 1. Anemia follows with Dr Alondra parks through [facility] continue to monitor labs is getting [...] Code Code System Name Reaction Severity Onset 762147 RxNorm Bactrim ? ? ? 4899174 RxNorm Dabigatran Etexilate ? ? ? 156689 RxNorm Dexlansoprazole ? ? ? 666913 RxNorm Dilaudid ? ? ? 3640 RxNorm Doxycycline ? ? ? 6211 RxNorm Lactose ? ? ? 383789 RxNorm Moxifloxacin ? ? ? 21805 RxNorm Vancomycin ? ? ? Notes: egg [...] have a medical power of Y deputy county attorney? What was the date of [...] do you live? Apartment Notes: ILF at [facility] What is your relationship status? Functional Status Unknown. Past Encounters 04/03/2022 Anemia; Acute Constipation GUILLERMO Chiu: [address] [place] [address], Ph. 03/31/2022 Acute Constipation GUILLERMO Chiu: [address] [place] [address], Ph. 03/30/2022 Fracture of Superior Pubic Ramus Lucila Engle LADLE REPAIRER: [address] [place], [place] [address], Ph. 03/27/2022 Anemia; Chronic Hyponatremia GUILLERMO Chiu: [address] [place], [place] [address], Ph. 03/24/2022 Atrial Fibrillation; Chronic Obstructive Lung Disease; Hypothyroidism; Orthostatic Hypotension; Myelodysplastic Syndrome (Clinical); Parkinson's Disease; Restless Legs; Chronic Hyponatremia; Fall; Anemi a; Chronic Tremor; Gastroesophageal Refl ux Disease without Esophagitis; Fracture of Single Pubic Ramus GUILLERMO Chiu: [address] [place], [place] [address], Ph. 03/20/2022 Anemia; Gastroesophageal Reflux Disease without Esophagitis GUILLERMO Chiu: [address] [place] [address], Ph. 03/13/2022 Anemia; Gastroesophageal Reflux Disease without Esophagitis GUILLERMO Chiu: [address] [place] [address], Ph. 03/10/2022 Urinary Tract Infectious Disease; Anemia ; Myelodysplastic Syndrome (Clinical); Fracture of Single Pubic Ramus GUILLERMO Chiu: [address] [place] [address], Ph. 03/07/2022 Chronic Hyponatremia; Fracture of Single Pubic Ramus; Atrial Fibrillation GUILLERMO Chiu: [address] [place] [address], Ph. 03/03/2022 Subdural Hematoma; Fracture of Superior Pubic Ramus; Fracture of Inferior Pubic Ramus; Myelodysplastic Syndrome (Clinical); Atrial Fibrillation; Chronic Obstructive Lung Disease; Hypothyroidism; Orthost atic Hypotension; Parkinson's Disease; R estless Legs; Chronic Hyponatremia; Fall Marija Morrow MD: [address] [place] [address], Ph. History of Present Illness Note: <div>A [...] 141, na 139, k 4.2, bun 24, firewood cutter 0.95, sabi 7.4</div><div>03/20/22 na 139, k 3.5, bun 28, firewood cutter 0.88, sabi 7.5</div><div>03/27/22 wbc 3.3 , hgb 7.1, hct 21.9, plt 149, na 134, k 4, bun 13, firewood cutter 0.78, sabi 8</ div><div>04/03/22 wbc 4, hgb 7.3, hct 22.3, plt 207, na 132, k 4.5 , bun 17, firewood cutter 0.82, sabi 8</div>
--- OUTSIDE RECORDS SUMMARY | 2022-06-19 01:29 | XMS_ITS | Encounter Summary ---
:1935 Author Care Team Providers Name Role Phone Art Ortiz Primary Care Provider [phone] [place] Anglin - 4th Floor OTHER [phone] Reason for Visit Acute Rounding Visit Assessment and Plan 1. Weight loss continued weight loss she agreed to remeron 7.5 mg q hs monitor weight business development assistant consult as needed 2. Chronic hyponatremia 1500 cc fluid restrict monitor labs sodium stable 3. Anemia follows with Dr Cantu oncdanya through [facility] anemia injections through there q 3 [...] Code Code System Name Reaction Severity Onset 648863 RxNorm Bactrim ? ? ? 8516113 RxNorm Dabigatran Etexilate ? ? ? 673192 RxNorm Dexlansoprazole ? ? ? 250338 RxNorm Dilaudid ? ? ? 3640 RxNorm Doxycycline ? ? ? 6211 RxNorm Lactose ? ? ? 661802 RxNorm Moxifloxacin ? ? ? 27113 RxNorm Vancomycin ? ? ? Notes: egg [...] you have a medical power of Y web offset press feeder? What was the date of your most [...] do you live? Apartment Notes: ILF at [facility] What is your relationship status? Functional Status Unknown. Past Encounters 05/01/2022 Weight Loss; Chronic Hyponatremia; Anemi a Alejandrina Siegel, SENIOR ASSOCIATE: [address], [facility] [place] [address], Ph. 04/28/2022 Atrial Fibrillation; Chronic Obstructive Lung Disease; Gastroesophageal Reflux Disease without Esophagitis; Myelodysplastic Syndrome (Clinical); Hypothyroidism; Parkinson's Disease; Restless Legs; Orthostatic Hypotension; Chronic Pain Maddy Smith MD: [address] [place] [address], Ph. 04/25/2022 Myelodysplastic Syndrome (Clinical); Par kinson's Disease; Chronic Obstructive Lung Disease; Acute Low Back Pain; Orthostatic Hypotension; Nausea; Anemia; Chronic Hyponatremia; Atrial Fibrillation; Chron ic Constipation; Subdural Hematoma; Frac ture of Superior Pubic Ramus; Fracture of Inferior Pubic Ramus; Hypothyroidism; Chronic Tremor Lucila Engle GEM EXPERT: [address] [place] [address], Ph. 04/20/2022 Myelodysplastic Syndrome (Clinical); Par kinson's Disease; Acute Low Back Pain; Nausea; Anemia; Chronic Constipation; Subdural Hematoma; Fracture of Superior Pubic Ramus; Fracture of Inferior Pubic Ramus ; Atrial Fibrillation; Hypothyroidism; O rthostatic Hypotension; Chronic Hyponatremia; Chronic Tremor Lucila Engle GEM EXPERT: [address] [place] [address], Ph. 04/18/2022 Myelodysplastic Syndrome (Clinical); Adam sea; Anemia; Chronic Constipation; Parkinson's Disease; Subdural Hematoma; Fracture of Superior Pubic Ramus; Fracture of Inferior Pubic Ramus; Atrial Fibrillation ; Hypothyroidism; Orthostatic Hypotensio n; Chronic Hyponatremia Lucila Engle GEM EXPERT: [address] [place] [address], Ph. 04/10/2022 Myelodysplastic Syndrome (Clinical); Ane toby; Chronic Constipation; Parkinson's Disease; Subdural Hematoma; Fracture of Superior Pubic Ramus; Fracture of Inferior Pubic Ramus; Atrial Fibrillation; Hypoth yroidism; Orthostatic Hypotension; Chron ic Hyponatremia Marija Morrow MD: [address] [place] [address], Ph. 04/07/2022 Anemia; Parkinson's Disease GUILLERMO Chiu: [address] [place] [address], Ph. 04/06/2022 Anemia; Acute Constipation; Fracture of Superior Pubic Ramus; Atrial Fibrillation; Hypothyroidism; Orthostatic Hypotension; Myelodysplastic Syndrome (Clinical); Chronic Hyponatremia Lucila Engle, GEM EXPERT: [address] [place], [place] [address], Ph. 04/03/2022 Anemia; Acute Constipation Alejandrina iSegelLEEANNP: [address] [place], [place] [address], Ph. 03/31/2022 Acute Constipation Alejandrina Siegel, SENIOR ASSOCIATE: [address] [place], [place] [address], Ph. History of Present Illness Note: <div>A [...] 141, na 139, k 4.2, bun 24, cardiovascular operating room nurse 0.95, sabi 7.4</div><div>03/20/22 na 139, k 3.5, bun 28, cardiovascular operating room nurse 0.88, sabi 7.5</div><div>03/27/22 wbc 3.3 , hgb 7.1, hct 21.9, plt 149, na 134, k 4, bun 13, cardiovascular operating room nurse 0.78, sabi 8</ div><div>04/03/22 wbc 4, hgb 7.3, hct 22.3, plt 207, na 132, k 4.5 , bun 17, cardiovascular operating room nurse 0.82, sabi 8</div><div>04/10/22-WBC-3.4, H/H-6.6/20.9, plts-177, BUN/Cr-16/0.97, GFR-55, Na+1 31, K+4.5, glu-61</div><div>04/17: wbc 3.1, hgb 7.3, plt 152. Na 13 0, K 3.8, Bun13, Cr. 0.74, glu 65. </div><div>04/25: wbc 2.7, hgb 6.5, plt 141. </div><div>05/01/22 wbc 3.8, hgb 7.4, hct 22.9, plt 168, na 132, k 4.4, bun 17, cardiovascular operating room nurse 0.69, sabi 7.7</div>
--- OUTSIDE RECORDS SUMMARY | 2022-06-19 01:29 | XMS_ITS | Encounter Summary ---
:1935 Author Care Team Providers Name Role Phone Art Ortiz Primary Care Provider [phone] [place] Anglin - 4th Floor OTHER [phone] Reason for Visit Routine Rounding Assessment and [...] Anemia follows with Dr Alondra parks through [facility] she is s/p transfusion and doing well [...] Code Code System Name Reaction Severity Onset 963724 RxNorm Bactrim ? ? ? 8569684 RxNorm Dabigatran Etexilate ? ? ? 889877 RxNorm Dexlansoprazole ? ? ? 785736 RxNorm Dilaudid ? ? ? 3640 RxNorm Doxycycline ? ? ? 6211 RxNorm Lactose ? ? ? 485069 RxNorm Moxifloxacin ? ? ? 89651 RxNorm Vancomycin ? ? ? Notes: egg [...] you have a medical power of Y orchestra leader? What was the date of your most [...] do you live? Apartment Notes: ILF at [facility] What is your relationship status? Functional Status Unknown. Past Encounters 03/24/2022 Atrial Fibrillation; Chronic Obstructive Lung Disease; Hypothyroidism; Orthostatic Hypotension; Myelodysplastic Syndrome (Clinical); Parkinson's Disease; Restless Legs; Chronic Hyponatremia; Fall; Anemi a; Chronic Tremor; Gastroesophageal Refl ux Disease without Esophagitis; Fracture of Single Pubic Ramus GUILLERMO Chiu: [address] [place] [address], Ph. 03/20/2022 Anemia; Gastroesophageal Reflux Disease without Esophagitis GUILLERMO Chiu: [address] [place] [address], Ph. 03/13/2022 Anemia; Gastroesophageal Reflux Disease without Esophagitis GUILLERMO Chiu: [address] [place] [address], Ph. 03/10/2022 Urinary Tract Infectious Disease; Anemia ; Myelodysplastic Syndrome (Clinical); Fracture of Single Pubic Ramus GUILLERMO Chiu: [address] [place] [address], Ph. 03/07/2022 Chronic Hyponatremia; Fracture of Single Pubic Ramus; Atrial Fibrillation GUILLERMO Chiu: [address] [place] [address], Ph. 03/03/2022 Subdural Hematoma; Fracture of Superior Pubic Ramus; Fracture of Inferior Pubic Ramus; Myelodysplastic Syndrome (Clinical); Atrial Fibrillation; Chronic Obstructive Lung Disease; Hypothyroidism; Orthost atic Hypotension; Parkinson's Disease; R estless Legs; Chronic Hyponatremia; Fall Marija Morrow MD: [address] [place] [address], Ph. 03/02/2022 Subdural Hematoma; Fracture of Single Pu bic Ramus; Myelodysplastic Syndrome (Clinical); Atrial Fibrillation; Chronic Obstructive Lung Disease; Hypothyroidism; Orthostatic Hypotension; Parkinson's Disease; Restless Legs; Chronic Hyponatremia; Fall Delilah Stock: [address] [place] [address], Ph. History of Present Illness Note: <div>A [...] 141, na 139, k 4.2, bun 24, laboratory veterinarian 0.95, sabi 7.4</div><div>03/20/22 na 139, k 3.5, bun 28, laboratory veterinarian 0.88, sabi 7.5</div>
--- OUTSIDE RECORDS SUMMARY | 2022-06-19 01:29 | XMS_ITS | Encounter Summary ---
:1935 Author Care Team Providers Name Role Phone Art Ortiz Primary Care Provider [phone] [place] Anglin - 4th Floor OTHER [phone] Reason for Visit Acute Rounding Visit Assessment and Plan Assessment Note AGREE WITH SPECTROSCOPIST STUDENT 1. Chronic hyponatremia Sodium 134 today. Sodium 133 on 05/11/22 . Pt unaware of any fluid restriction. Pt has not been following but reports that she does not drink a lot. 1500 cc fluid restriction monitor labs sodium stable 2. Anemia Got infusion Sunday. Went well. H&H tod ay is 9.3/29.4. follows with Dr Alondra bello/onc through [facility] anemia injections through there q 3 [...] Code Code System Name Reaction Severity Onset 251354 RxNorm Bactrim ? ? ? 0998132 RxNorm Dabigatran Etexilate ? ? ? 626251 RxNorm Dexlansoprazole ? ? ? 865969 RxNorm Dilaudid ? ? ? 3640 RxNorm Doxycycline ? ? ? 6211 RxNorm Lactose ? ? ? 008265 RxNorm Moxifloxacin ? ? ? 94062 RxNorm Vancomycin ? ? ? Notes: egg [...] you have a medical power of Y bankruptcy attorney? What was the date of your [...] do you live? Apartment Notes: ILF at [facility] What is your relationship status? Functional Status Unknown. Past Encounters 05/15/2022 Chronic Hyponatremia; Anemia; Acute Cons tipation; Orthostatic Hypotension; Pain of Right Shoulder Joint GUILLERMO Chiu: [address] [place] [address], Ph. 05/08/2022 Anemia GUILLERMO Chiu: [address] [place] [address], Ph. 05/04/2022 Sore Throat Symptom; Weight Loss; Chroni c Hyponatremia; Anemia; Atrial Fibrillation; Chronic Obstructive Lung Disease; Gastroesophageal Reflux Disease without Esophagitis; Myelodysplastic Syndrome (Clin ical); Hypothyroidism; Parkinson's Disea se; Restless Legs; Orthostatic Hypotension; Chronic Pain; Nausea; Chronic Constipation; Subdural Hematoma; Fracture of Superior Pubic Ramus; Fracture of Inferior Pubic Ramus; Chronic Tremor Lucila Engle SPECTROSCOPIST: [address] [place] [address], Ph. 05/01/2022 Weight Loss; Chronic Hyponatremia; Anemi a GUILLERMO Chiu: [address] [place] [address], Ph. 04/28/2022 Atrial Fibrillation; Chronic Obstructive Lung Disease; Gastroesophageal Reflux Disease without Esophagitis; Myelodysplastic Syndrome (Clinical); Hypothyroidism; Parkinson's Disease; Restless Legs; Orthostatic Hypotension; Chronic Pain Maddy Smith MD: [address] [place] [address], Ph. 04/25/2022 Myelodysplastic Syndrome (Clinical); Par kinson's Disease; Chronic Obstructive Lung Disease; Acute Low Back Pain; Orthostatic Hypotension; Nausea; Anemia; Chronic Hyponatremia; Atrial Fibrillation; Chron ic Constipation; Subdural Hematoma; Frac ture of Superior Pubic Ramus; Fracture of Inferior Pubic Ramus; Hypothyroidism; Chronic Tremor Lucila Engle SPECTROSCOPIST: [address] [place] [address], Ph. 04/20/2022 Myelodysplastic Syndrome (Clinical); Par kinson's Disease; Acute Low Back Pain; Nausea; Anemia; Chronic Constipation; Subdural Hematoma; Fracture of Superior Pubic Ramus; Fracture of Inferior Pubic Ramus ; Atrial Fibrillation; Hypothyroidism; O rthostatic Hypotension; Chronic Hyponatremia; Chronic Tremor Lucila Engle SPECTROSCOPIST: [address] [place] [address], Ph. 04/18/2022 Myelodysplastic Syndrome (Clinical); Adam sea; Anemia; Chronic Constipation; Parkinson's Disease; Subdural Hematoma; Fracture of Superior Pubic Ramus; Fracture of Inferior Pubic Ramus; Atrial Fibrillation ; Hypothyroidism; Orthostatic Hypotensio n; Chronic Hyponatremia Lucila Engle SPECTROSCOPIST: [address] [place] [address], Ph. History of Present Illness Note: <div>A [...] 141, na 139, k 4.2, bun 24, medical detailist 0.95, sabi 7.4</div><div>03/20/22 na 139, k 3.5, bun 28, medical detailist 0.88, sabi 7.5</div><div>03/27/22 wbc 3.3 , hgb 7.1, hct 21.9, plt 149, na 134, k 4, bun 13, medical detailist 0.78, sabi 8</ div><div>04/03/22 wbc 4, hgb 7.3, hct 22.3, plt 207, na 132, k 4.5 , bun 17, medical detailist 0.82, sabi 8</div><div>04/10/22-WBC-3.4, H/H-6.6/20.9, plts-177, BUN/Cr-16/0.97, GFR-55, Na+1 31, K+4.5, glu-61</div><div>04/17: wbc 3.1, hgb 7.3, plt 152. Na 13 0, K 3.8, Bun13, Cr. 0.74, glu 65. </div><div>04/25: wbc 2.7, hgb 6.5, plt 141. </div><div>05/01/22 wbc 3.8, hgb 7.4, hct 22.9, plt 168, na 132, k 4.4, bun 17, medical detailist 0.69, sabi 7.7</div><div>05/08/22 wb c 4.1, hgb 6.8, hct 21.4, plt 149, na 133, k 4.3, bun 20, medical detailist 0.91 , sabi 7.7</div><div>05/15/22: wbc 4.5, h&h 9.3/29.4, mchc 31.6 , rdw 21.4, plt 195, gluc 65, sodium 134, k+ 4.3, chloride 103, c o2 25, gap 6, bun 18, creat 0.88, eGFR >60, calcium 8.3</div>
--- OUTSIDE RECORDS SUMMARY | 2022-06-19 01:29 | XMS_ITS | Encounter Summary ---
:1935 Author Care Team Providers Name Role Phone Art Ortiz Primary Care Provider [phone] [place] Anglin - 4th Floor OTHER [phone] Reason for Visit Acute Rounding Visit Assessment and Plan Assessment Note 03/02: wbc 2.4, hgb 8.3, hct 24.5, na 13 2, k 4.8, bun 22, creat 0.84, plt 123 1. Myelodysplastic syndrome (clinical) With anemia and leukopenia. Had transfusion of 1U PRBC this AM. F/U with heme/onc, Dr. Cantu, [address] [place] [address], on 04/17 at 9:45 AM 2. Anemia [...] F/U with neuro, Tiffanie Cheng NP, [address] [facility], [address], , 04/19 at 1 PM. 5. [...] Code Code System Name Reaction Severity Onset 417878 RxNorm Bactrim ? ? ? 9859072 RxNorm Dabigatran Etexilate ? ? ? 018842 RxNorm Dexlansoprazole ? ? ? 882185 RxNorm Dilaudid ? ? ? 3640 RxNorm Doxycycline ? ? ? 6211 RxNorm Lactose ? ? ? 866403 RxNorm Moxifloxacin ? ? ? 89878 RxNorm Vancomycin ? ? ? Notes: egg [...] you have a medical power of Y associate attorney? What was the date of your [...] do you live? Apartment Notes: ILF at [facility] What is your relationship status? Functional Status Unknown. Past Encounters 04/10/2022 Myelodysplastic Syndrome (Clinical); Ane toby; Chronic Constipation; Parkinson's Disease; Subdural Hematoma; Fracture of Superior Pubic Ramus; Fracture of Inferior Pubic Ramus; Atrial Fibrillation; Hypoth yroidism; Orthostatic Hypotension; Chron ic Hyponatremia Marija Morrow MD: [address] [facility] [place] [address], Ph. 04/07/2022 Anemia; Parkinson's Disease GUILLERMO Chiu: [address] [facility] [place] [address], Ph. 04/06/2022 Anemia; Acute Constipation; Fracture of Superior Pubic Ramus; Atrial Fibrillation; Hypothyroidism; Orthostatic Hypotension; Myelodysplastic Syndrome (Clinical); Chronic Hyponatremia Lucila Engle MEAT SCRUBBER: [address], [place] [address], Ph. 04/03/2022 Anemia; Acute Constipation GUILLERMO Chiu: [address], [place] [address], Ph. 03/31/2022 Acute Constipation GUILLERMO Chiu: [address], [place] [address], Ph. 03/30/2022 Fracture of Superior Pubic Ramus Lucila Engle MEAT SCRUBBER: [address], [place] [address], Ph. 03/27/2022 Anemia; Chronic Hyponatremia GUILLERMO Chiu: [address], [place] [address], Ph. 03/24/2022 Atrial Fibrillation; Chronic Obstructive Lung Disease; Hypothyroidism; Orthostatic Hypotension; Myelodysplastic Syndrome (Clinical); Parkinson's Disease; Restless Legs; Chronic Hyponatremia; Fall; Anemi a; Chronic Tremor; Gastroesophageal Refl ux Disease without Esophagitis; Fracture of Single Pubic Ramus GUILLERMO Chiu: [address], [place] [address], Ph. 03/20/2022 Anemia; Gastroesophageal Reflux Disease without Esophagitis GUILLERMO Chiu: [address], [place] [address], Ph. 03/13/2022 Anemia; Gastroesophageal Reflux Disease without Esophagitis GUILLERMO Chiu: [address], [place] [address], Ph. 03/10/2022 Urinary Tract Infectious Disease; Anemia ; Myelodysplastic Syndrome (Clinical); Fracture of Single Pubic Ramus GUILLERMO Chiu: [address], [place] [address], Ph. History of Present Illness Note: <div>I [...] 141, na 139, k 4.2, bun 24, range technician 0.95, sabi 7.4</div><div>03/20/22 na 139, k 3.5, bun 28, range technician 0.88, sabi 7.5</div><div>03/27/22 wbc 3.3 , hgb 7.1, hct 21.9, plt 149, na 134, k 4, bun 13, range technician 0.78, sabi 8</ div><div>04/03/22 wbc 4, hgb 7.3, hct 22.3, plt 207, na 132, k 4.5 , bun 17, range technician 0.82, sabi 8</div><div>04/10/22-WBC-3.4, H/H-6.6/20.9, plts-177, BUN/Cr-16/0.97, GFR-55, Na+1 31, K+4.5, glu-61</div>
--- OUTSIDE RECORDS SUMMARY | 2022-06-19 01:29 | XMS_ITS | Encounter Summary ---
:1935 Author Care Team Providers Name Role Phone Art Ortiz Primary Care Provider [phone] Delonte Anglin - 4th Floor OTHER [phone] Reason for Visit Acute Rounding Visit Assessment [...] Code Code System Name Reaction Severity Onset 544550 RxNorm Bactrim ? ? ? 6510880 RxNorm Dabigatran Etexilate ? ? ? 892388 RxNorm Dexlansoprazole ? ? ? 692595 RxNorm Dilaudid ? ? ? 3640 RxNorm Doxycycline ? ? ? 6211 RxNorm Lactose ? ? ? 500161 RxNorm Moxifloxacin ? ? ? 88152 RxNorm Vancomycin ? ? ? Notes: egg [...] you have a medical power of Y family law attorney? What was the date of [...] do you live? Apartment Notes: ILF at [facility] What is your relationship status? Functional Status Unknown. Past Encounters 03/30/2022 Fracture of Superior Pubic Ramus Lucila Engle SENIOR PLANNING ANALYST: [address] [place] [address], Ph. 03/27/2022 Anemia; Chronic Hyponatremia LEEANN ChiuP: [address] [place] [address], Ph. 03/24/2022 Atrial Fibrillation; Chronic Obstructive Lung Disease; Hypothyroidism; Orthostatic Hypotension; Myelodysplastic Syndrome (Clinical); Parkinson's Disease; Restless Legs; Chronic Hyponatremia; Fall; Anemi a; Chronic Tremor; Gastroesophageal Refl ux Disease without Esophagitis; Fracture of Single Pubic Ramus GUILLERMO Chiu: [address], [place] [address], Ph. 03/20/2022 Anemia; Gastroesophageal Reflux Disease without Esophagitis GUILLERMO Chiu: [address], [place] [address], Ph. 03/13/2022 Anemia; Gastroesophageal Reflux Disease without Esophagitis GUILLERMO Chiu: [address], [place] [address], Ph. 03/10/2022 Urinary Tract Infectious Disease; Anemia ; Myelodysplastic Syndrome (Clinical); Fracture of Single Pubic Ramus GUILLERMO Chiu: [address], [place] [address], Ph. 03/07/2022 Chronic Hyponatremia; Fracture of Single Pubic Ramus; Atrial Fibrillation GUILLERMO Chiu: [address], [place] [address], Ph. 03/03/2022 Subdural Hematoma; Fracture of Superior Pubic Ramus; Fracture of Inferior Pubic Ramus; Myelodysplastic Syndrome (Clinical); Atrial Fibrillation; Chronic Obstructive Lung Disease; Hypothyroidism; Orthost atic Hypotension; Parkinson's Disease; R estless Legs; Chronic Hyponatremia; Fall Marija Morrow MD: [address], [place] [address], Ph. 03/02/2022 Subdural Hematoma; Fracture of Single Pu bic Ramus; Myelodysplastic Syndrome (Clinical); Atrial Fibrillation; Chronic Obstructive Lung Disease; Hypothyroidism; Orthostatic Hypotension; Parkinson's Disease; Restless Legs; Chronic Hyponatremia; Fall Delilah Stock: [address], [place] [address], Ph. History of Present Illness Note: <div>Ximena [...] 141, na 139, k 4.2, bun 24, fish dressing machine feeder 0.95, sabi 7.4</div><div>03/20/22 na 139, k 3.5, bun 28, fish dressing machine feeder 0.88, sabi 7.5</div><div>03/27/22 wbc 3.3 , hgb 7.1, hct 21.9, plt 149, na 134, k 4, bun 13, fish dressing machine feeder 0.78, sabi 8</ div>
--- OUTSIDE RECORDS SUMMARY | 2022-06-19 01:29 | XMS_ITS | Encounter Summary ---
:1935 Author Care Team Providers Name Role Phone Art Ortiz Primary Care Provider [phone] Lithia Springsovidio Anglin - 4th Floor OTHER [phone] Reason for Visit Acute Rounding Visit Assessment and Plan 1. Anemia follows with Dr Alondra parks through [facility] anemia injections through there q 3 [...] Code Code System Name Reaction Severity Onset 489233 RxNorm Bactrim ? ? ? 9557736 RxNorm Dabigatran Etexilate ? ? ? 880512 RxNorm Dexlansoprazole ? ? ? 816492 RxNorm Dilaudid ? ? ? 3640 RxNorm Doxycycline ? ? ? 6211 RxNorm Lactose ? ? ? 579093 RxNorm Moxifloxacin ? ? ? 48551 RxNorm Vancomycin ? ? ? Notes: egg [...] you have a medical power of Y disability attorney? What was the date of your [...] do you live? Apartment Notes: ILF at [facility] What is your relationship status? Functional Status Unknown. Past Encounters 05/08/2022 Anemia LEEANN ChiuP: [address], [place] [address], Ph. 05/04/2022 Sore Throat Symptom; Weight Loss; Chroni c Hyponatremia; Anemia; Atrial Fibrillation; Chronic Obstructive Lung Disease; Gastroesophageal Reflux Disease without Esophagitis; Myelodysplastic Syndrome (Clin ical); Hypothyroidism; Parkinson's Disea se; Restless Legs; Orthostatic Hypotension; Chronic Pain; Nausea; Chronic Constipation; Subdural Hematoma; Fracture of Superior Pubic Ramus; Fracture of Inferior Pubic Ramus; Chronic Tremor Lucila Engle CONDUIT INSTALLER: [address] [facility] [place] [address], Ph. 05/01/2022 Weight Loss; Chronic Hyponatremia; Anemi a LEEANN ChiuP: [address] [place] [address], Ph. 04/28/2022 Atrial Fibrillation; Chronic Obstructive Lung Disease; Gastroesophageal Reflux Disease without Esophagitis; Myelodysplastic Syndrome (Clinical); Hypothyroidism; Parkinson's Disease; Restless Legs; Orthostatic Hypotension; Chronic Pain Maddy Smith MD: [address] [place] [address], Ph. 04/25/2022 Myelodysplastic Syndrome (Clinical); Par kinson's Disease; Chronic Obstructive Lung Disease; Acute Low Back Pain; Orthostatic Hypotension; Nausea; Anemia; Chronic Hyponatremia; Atrial Fibrillation; Chron ic Constipation; Subdural Hematoma; Frac ture of Superior Pubic Ramus; Fracture of Inferior Pubic Ramus; Hypothyroidism; Chronic Tremor Lucila Engle CONDUIT INSTALLER: [address] [place] [address], Ph. 04/20/2022 Myelodysplastic Syndrome (Clinical); Par kinson's Disease; Acute Low Back Pain; Nausea; Anemia; Chronic Constipation; Subdural Hematoma; Fracture of Superior Pubic Ramus; Fracture of Inferior Pubic Ramus ; Atrial Fibrillation; Hypothyroidism; O rthostatic Hypotension; Chronic Hyponatremia; Chronic Tremor Lucila Engle CONDUIT INSTALLER: [address] [place] [address], Ph. 04/18/2022 Myelodysplastic Syndrome (Clinical); Adam sea; Anemia; Chronic Constipation; Parkinson's Disease; Subdural Hematoma; Fracture of Superior Pubic Ramus; Fracture of Inferior Pubic Ramus; Atrial Fibrillation ; Hypothyroidism; Orthostatic Hypotensio n; Chronic Hyponatremia Lucila Engle NP: [address] [place] [address], Ph. 04/10/2022 Myelodysplastic Syndrome (Clinical); Ane toby; Chronic Constipation; Parkinson's Disease; Subdural Hematoma; Fracture of Superior Pubic Ramus; Fracture of Inferior Pubic Ramus; Atrial Fibrillation; Hypoth yroidism; Orthostatic Hypotension; Chron ic Hyponatremia Marija Morrow MD: [address] [facility] [place] [address], Ph. 04/07/2022 Anemia; Parkinson's Disease LEEANN ChiuP: [address] [place] [address], Ph. History of Present Illness Note: <div>A [...] 141, na 139, k 4.2, bun 24, pre school manager 0.95, sabi 7.4</div><div>03/20/22 na 139, k 3.5, bun 28, pre school manager 0.88, sabi 7.5</div><div>03/27/22 wbc 3.3 , hgb 7.1, hct 21.9, plt 149, na 134, k 4, bun 13, pre school manager 0.78, sabi 8</ div><div>04/03/22 wbc 4, hgb 7.3, hct 22.3, plt 207, na 132, k 4.5 , bun 17, pre school manager 0.82, sabi 8</div><div>04/10/22-WBC-3.4, H/H-6.6/20.9, plts-177, BUN/Cr-16/0.97, GFR-55, Na+1 31, K+4.5, glu-61</div><div>04/17: wbc 3.1, hgb 7.3, plt 152. Na 13 0, K 3.8, Bun13, Cr. 0.74, glu 65. </div><div>04/25: wbc 2.7, hgb 6.5, plt 141. </div><div>05/01/22 wbc 3.8, hgb 7.4, hct 22.9, plt 168, na 132, k 4.4, bun 17, pre school manager 0.69, sabi 7.7</div><div>05/08/22 wb c 4.1, hgb 6.8, hct 21.4, plt 149, na 133, k 4.3, bun 20, pre school manager 0.91 , sabi 7.7</div>
--- OUTSIDE RECORDS SUMMARY | 2022-06-19 01:29 | XMS_ITS | Encounter Summary ---
:1935 Author Care Team Providers Name Role Phone Art Ortiz Primary Care Provider [phone] Del[place] Anglin - 4th Floor OTHER [phone] Reason for Visit Acute Rounding Visit Assessment [...] CBC - forward results Dr. Cantu, [address] [facility], 2. Parkinson's disease Seen by Neuro last [...] needed. Had F/U with neuro, Tiffanie Cheng, SPOOLER OPERATOR AUTOMATIC, [facility], [address], . Uncertain if follow up appt. [...] Code Code System Name Reaction Severity Onset 200578 RxNorm Bactrim ? ? ? 6140176 RxNorm Dabigatran Etexilate ? ? ? 460536 RxNorm Dexlansoprazole ? ? ? 627893 RxNorm Dilaudid ? ? ? 3640 RxNorm Doxycycline ? ? ? 6211 RxNorm Lactose ? ? ? 710254 RxNorm Moxifloxacin ? ? ? 23598 RxNorm Vancomycin ? ? ? Notes: egg [...] ILF at [facility] What is your relationship status? Functional Status Unknown. Past Encounters 04/25/2022 Myelodysplastic Syndrome (Clinical); Par kinson's Disease; Chronic Obstructive Lung Disease; Acute Low Back Pain; Orthostatic Hypotension; Nausea; Anemia; Chronic Hyponatremia; Atrial Fibrillation; Chron ic Constipation; Subdural Hematoma; Frac ture of Superior Pubic Ramus; Fracture of Inferior Pubic Ramus; Hypothyroidism; Chronic Tremor Lucila Engle SPOOLER OPERATOR AUTOMATIC: [address] [place] [address], Ph. 04/20/2022 Myelodysplastic Syndrome (Clinical); Par kinson's Disease; Acute Low Back Pain; Nausea; Anemia; Chronic Constipation; Subdural Hematoma; Fracture of Superior Pubic Ramus; Fracture of Inferior Pubic Ramus ; Atrial Fibrillation; Hypothyroidism; O rthostatic Hypotension; Chronic Hyponatremia; Chronic Tremor Lucila Engle SPOOLER OPERATOR AUTOMATIC: [address] [place] [address], Ph. 04/18/2022 Myelodysplastic Syndrome (Clinical); Adam sea; Anemia; Chronic Constipation; Parkinson's Disease; Subdural Hematoma; Fracture of Superior Pubic Ramus; Fracture of Inferior Pubic Ramus; Atrial Fibrillation ; Hypothyroidism; Orthostatic Hypotensio n; Chronic Hyponatremia Lucila Engle SPOOLER OPERATOR AUTOMATIC: [address] [place] [address], Ph. 04/10/2022 Myelodysplastic Syndrome (Clinical); Ane toby; Chronic Constipation; Parkinson's Disease; Subdural Hematoma; Fracture of Superior Pubic Ramus; Fracture of Inferior Pubic Ramus; Atrial Fibrillation; Hypoth yroidism; Orthostatic Hypotension; Chron ic Hyponatremia Marija Morrow MD: [address], [place] [address], Ph. 04/07/2022 Anemia; Parkinson's Disease LEEANN ChiuP: [address], [place] [address], Ph. 04/06/2022 Anemia; Acute Constipation; Fracture of Superior Pubic Ramus; Atrial Fibrillation; Hypothyroidism; Orthostatic Hypotension; Myelodysplastic Syndrome (Clinical); Chronic Hyponatremia Lucila Engle SPOOLER OPERATOR AUTOMATIC: [address], [place] [address], Ph. 04/03/2022 Anemia; Acute Constipation LEEANN ChiuP: [address], [place] [address], Ph. 03/31/2022 Acute Constipation LEEANN ChiuP: [address], [place] [address], Ph. 03/30/2022 Fracture of Superior Pubic Ramus Lucila Engle SPOOLER OPERATOR AUTOMATIC: [address], [place] [address], Ph. 03/27/2022 Anemia; Chronic Hyponatremia LEEANN ChiuP: [address], [place] [address], Ph. History of Present Illness Note: <div>Ximena [...]
</div&g t;<div>She saw Neuro yesterday (Tiffanie Cheng SPOOLER OPERATOR AUTOMATIC, [phone]) who recommended trialing Rytary 23.75/95 mg 1 [...] 141, na 139, k 4.2, bun 24, review manager 0.95, sabi 7.4</div><div>03/20/22 na 139, k 3.5, bun 28, review manager 0.88, sabi 7.5</div><div>03/27/22 wbc 3.3 , hgb 7.1, hct 21.9, plt 149, na 134, k 4, bun 13, review manager 0.78, sabi 8</ div><div>04/03/22 wbc 4, hgb 7.3, hct 22.3, plt 207, na 132, k 4.5 , bun 17, review manager 0.82, sabi 8</div><div>04/10/22-WBC-3.4, H/H-6.6/20.9, plts-177, BUN/Cr-16/0.97, GFR-55, Na+1 31, K+4.5, glu-61</div><div>04/17: wbc 3.1, hgb 7.3, plt 152. Na 13 0, K 3.8, Bun13, Cr. 0.74, glu 65. </div><div>04/25: wbc 2.7, hgb 6.5, plt 141. </div>
--- OUTSIDE RECORDS SUMMARY | 2022-06-19 01:29 | XMS_ITS | Encounter Summary ---
:1935 Author Care Team Providers Name Role Phone Art Ortiz Primary Care Provider [phone] [place]ov[place] Anglin - 4th Floor OTHER [phone] Reason for Visit Acute Rounding Visit Assessment [...] Code Code System Name Reaction Severity Onset 409175 RxNorm Bactrim ? ? ? 3845921 RxNorm Dabigatran Etexilate ? ? ? 813036 RxNorm Dexlansoprazole ? ? ? 960925 RxNorm Dilaudid ? ? ? 3640 RxNorm Doxycycline ? ? ? 6211 RxNorm Lactose ? ? ? 945122 RxNorm Moxifloxacin ? ? ? 04315 RxNorm Vancomycin ? ? ? Notes: egg [...] you have a medical power of Y commercial litigation attorney? What was the date of your most 03/03/2022 recent tobacco screening? Do you have an advanced directive? Y Note s: CPR ok, DNI ok hospital Do you use any illicit or N recreational drugs? Where do you live? Apartment Notes: ILF at [facility] What is your relationship status? What is your level of alcohol None consumption? Do you have an out of hospital DNR? N Legal Guardian? N Do you or have you ever used any N other forms of tobacco or nicotine? Functional Status Unknown. Past Encounters 03/31/2022 Acute Constipation LEEANN ChiuP: [address] [place] [address], Ph. 03/30/2022 Fracture of Superior Pubic Ramus Lucila Engle OXYACETYLENE BURNER: [address] [place] [address], Ph. 03/27/2022 Anemia; Chronic Hyponatremia GUILLERMO Chiu: [address], [place] [address], Ph. 03/24/2022 Atrial Fibrillation; Chronic Obstructive Lung Disease; Hypothyroidism; Orthostatic Hypotension; Myelodysplastic Syndrome (Clinical); Parkinson's Disease; Restless Legs; Chronic Hyponatremia; Fall; Anemi a; Chronic Tremor; Gastroesophageal Refl ux Disease without Esophagitis; Fracture of Single Pubic Ramus GUILLERMO Chiu: [address], [place] [address], Ph. 03/20/2022 Anemia; Gastroesophageal Reflux Disease without Esophagitis GUILLERMO Chiu: [address], [place] [address], Ph. 03/13/2022 Anemia; Gastroesophageal Reflux Disease without Esophagitis GUILLERMO Chiu: [address], [place] [address], Ph. 03/10/2022 Urinary Tract Infectious Disease; Anemia ; Myelodysplastic Syndrome (Clinical); Fracture of Single Pubic Ramus GUILLERMO Chiu: [address], [place] [address], Ph. 03/07/2022 Chronic Hyponatremia; Fracture of Single Pubic Ramus; Atrial Fibrillation GUILLERMO Chiu: [address], [place] [address], Ph. 03/03/2022 Subdural Hematoma; Fracture of Superior Pubic Ramus; Fracture of Inferior Pubic Ramus; Myelodysplastic Syndrome (Clinical); Atrial Fibrillation; Chronic Obstructive Lung Disease; Hypothyroidism; Orthost atic Hypotension; Parkinson's Disease; R estless Legs; Chronic Hyponatremia; Fall Marija Morrow MD: [address], [place] [address], Ph. 03/02/2022 Subdural Hematoma; Fracture of Single Pu bic Ramus; Myelodysplastic Syndrome (Clinical); Atrial Fibrillation; Chronic Obstructive Lung Disease; Hypothyroidism; Orthostatic Hypotension; Parkinson's Disease; Restless Legs; Chronic Hyponatremia; Fall Delilah Stock: [address] [place] [address], Ph. History of Present Illness Note: <div>A [...] 141, na 139, k 4.2, bun 24, gas combustion engineer 0.95, sabi 7.4</div><div>03/20/22 na 139, k 3.5, bun 28, gas combustion engineer 0.88, sabi 7.5</div><div>03/27/22 wbc 3.3 , hgb 7.1, hct 21.9, plt 149, na 134, k 4, bun 13, gas combustion engineer 0.78, sabi 8</ div>
--- OUTSIDE RECORDS SUMMARY | 2022-06-19 01:29 | XMS_ITS | Encounter Summary ---
:1935 Author Care Team Providers Name Role Phone Art Ortiz Primary Care Provider [phone] Delonte Anglin - 4th Floor OTHER [phone] Reason for Visit Acute Rounding Visit Assessment [...] - f orward results Dr. Cantu, [address] [facility], [phone] 2. Nausea and gagging, reported to be [...] F/U with neuro, Tiffanie Cheng NP, [address] [facility], [address], , 04/19 at 1 PM. 6. Subdural [...] Code Code System Name Reaction Severity Onset 311589 RxNorm Bactrim ? ? ? 2848139 RxNorm Dabigatran Etexilate ? ? ? 479333 RxNorm Dexlansoprazole ? ? ? 311537 RxNorm Dilaudid ? ? ? 3640 RxNorm Doxycycline ? ? ? 6211 RxNorm Lactose ? ? ? 788578 RxNorm Moxifloxacin ? ? ? 37458 RxNorm Vancomycin ? ? ? Notes: egg [...] you have a medical power of Y claims attorney? What was the date of your [...] do you live? Apartment Notes: ILF at [facility] What is your relationship status? Functional Status Unknown. Past Encounters 04/18/2022 Myelodysplastic Syndrome (Clinical); Adma sea; Anemia; Chronic Constipation; Parkinson's Disease; Subdural Hematoma; Fracture of Superior Pubic Ramus; Fracture of Inferior Pubic Ramus; Atrial Fibrillation ; Hypothyroidism; Orthostatic Hypotensio n; Chronic Hyponatremia Lucila Engle ELL TEACHER: [address] [place] [address], Ph. 04/10/2022 Myelodysplastic Syndrome (Clinical); Ane toby; Chronic Constipation; Parkinson's Disease; Subdural Hematoma; Fracture of Superior Pubic Ramus; Fracture of Inferior Pubic Ramus; Atrial Fibrillation; Hypoth yroidism; Orthostatic Hypotension; Chron ic Hyponatremia Marija Morrow MD: [address], [place] [address], Ph. 04/07/2022 Anemia; Parkinson's Disease GUILLERMO Chiu: [address], [place] [address], Ph. 04/06/2022 Anemia; Acute Constipation; Fracture of Superior Pubic Ramus; Atrial Fibrillation; Hypothyroidism; Orthostatic Hypotension; Myelodysplastic Syndrome (Clinical); Chronic Hyponatremia Lucila Engle ELL TEACHER: [address], [place] [address], Ph. 04/03/2022 Anemia; Acute Constipation GUILLERMO Chiu: [address], [place] [address], Ph. 03/31/2022 Acute Constipation GUILLERMO Chiu: [address], [place] [address], Ph. 03/30/2022 Fracture of Superior Pubic Ramus Lucila Engle ELL TEACHER: [address], [place] [address], Ph. 03/27/2022 Anemia; Chronic Hyponatremia GUILLERMO Chiu: [address], [place] [address], Ph. 03/24/2022 Atrial Fibrillation; Chronic Obstructive Lung Disease; Hypothyroidism; Orthostatic Hypotension; Myelodysplastic Syndrome (Clinical); Parkinson's Disease; Restless Legs; Chronic Hyponatremia; Fall; Anemi a; Chronic Tremor; Gastroesophageal Refl ux Disease without Esophagitis; Fracture of Single Pubic Ramus GUILLERMO Chiu: [address], [place] [address], Ph. 03/20/2022 Anemia; Gastroesophageal Reflux Disease without Esophagitis GUILLERMO Chiu: [address], [place] [address], Ph. History of Present Illness Note: <div>Ximena [...] 141, na 139, k 4.2, bun 24, linux support engineer 0.95, sabi 7.4</div><div>03/20/22 na 139, k 3.5, bun 28, linux support engineer 0.88, sabi 7.5</div><div>03/27/22 wbc 3.3 , hgb 7.1, hct 21.9, plt 149, na 134, k 4, bun 13, linux support engineer 0.78, sabi 8</ div><div>04/03/22 wbc 4, hgb 7.3, hct 22.3, plt 207, na 132, k 4.5 , bun 17, linux support engineer 0.82, sabi 8</div><div>04/10/22-WBC-3.4, H/H-6.6/20.9, plts-177, BUN/Cr-16/0.97, GFR-55, Na+1 31, K+4.5, glu-61</div><div>04/17: wbc 3.1, hgb 7.3, plt 152. Na 13 0, K 3.8, Bun13, Cr. 0.74, glu 65. </div>
[2022-06-19 01:47] LABS: Lactic Acid 2.9 mmol/L (0.5-2.0)
[2022-06-19 01:59] LABS: Iron 63 mcg/dL (30-160); Percent Iron Saturation 36 % (15-50); Total Iron Binding Capacity 173 mcg/dL (228-428); Unsaturated Iron Binding 110 ug/dL
[2022-06-19] MEDS: Enoxaparin Sodium 40 MG/0.4 ML SYRINGE SUBCUT ×2 (02:24→20:57)
[2022-06-19] MEDS: Piperacillin Sodium/Tazobactam 3.375 GM in 0.9 % Sodium Chloride 50 ML IV (02:24)
[2022-06-19 02:25] LABS: Thyroid Stimulating Hormone 8.16 uIU/mL (0.32-4.0)
[2022-06-19 02:39] LABS: COVID-19 Test Negative (Negative); IDNOW Serial# 9DB6401D
[2022-06-19] MEDS: 0.9 % Sodium Chloride 1,000 ML 999 ML IV (02:43)
[2022-06-19 03:06] LABS: Appearance Urine Cloudy; Color Urine Yellow; Glucose Urine UA Negative (Negative); Leukocyte Esterase Urine Large (3+) (Negative); Nitrite Urine Positive (Negative); Specific Gravity - Urine 1.015 (1.005-1.025); UMIC TRIGGER UACC YES; Urine Blood Negative (Negative); Urine Ketones Negative (Negative); Urine Protein Trace mg/dL (Neg-Trace)
[2022-06-19 03:11] LABS: Bacteria Urine 4+ (None Seen); Hyaline Casts Urine 0-2 /LPF (0-2); RBC Urine 0-2 /HPF (0-2); Squamous Epithelial Cell Urine 0-2 /HPF (0-2); UACC Culture Trigger YES; WBC Urine >50 /HPF (0-5)
[2022-06-19 03:28] LABS: Reflex Lactate? Lactic Acid Added
[2022-06-19 04:14] LABS: ~Lactic Acid-LAB USE ONLY 0.6 mmol/L (0.5-2.0)
--- NOTE | 2022-06-19 04:44 | PC.NURSE ---
Pt aox3. One unit of RBC started. No apparent distress noted. Will continue to monitor.
[2022-06-19 06:05] LABS: Hematocrit 23.8 % (37.0-47.0); Hemoglobin 7.8 g/dl (12.0-16.0); Mean Corpuscular HGB Conc 32.8 g/dl (31.0-35.0); Mean Corpuscular Hemoglobin 29.4 pg (27.0-33.0); Mean Corpuscular Volume 89.8 fL (80.0-98.0); Mean Platelet Volume 11.4 fL (9.4-12.3); NRBC Pct Auto 0.6 /100WBC (0.0-0.2); Platelet Count 174 X10*3/uL (160-400); Red Blood Count 2.65 X10*6/uL (4.20-5.50); Red Cell Distribution Width 17.2 % (11.0-16.0); WBC ABN SCTR FOR CBC 1
[2022-06-19 06:06] LABS: White Blood Count 4.7 X10*3/uL (4.8-10.8)
--- NOTE | 2022-06-19 06:06 | PC.NURSE ---
One unit of RBC transfused with no reaction. Pt aox3. Breaths are even and unlabored. No apparent distress noted.
[2022-06-19 06:38] LABS: Anion Gap 13 (12-20); Blood Urea Nitrogen 14 mg/dL (9-16); Calcium 7.8 mg/dL (8.4-10.2); Carbon Dioxide 19 mmol/L (22-29); Chloride 105 mmol/L (96-108); Creatinine Clr Calc Pharmacy 48.2; Estimated Glomerular Filt Rate > 60; Glucose Random 80 mg/dL (60-115); Potassium 4.4 mmol/L (3.3-5.1); Sodium 133 mmol/L (135-145)
[2022-06-19] MEDS: 0.9 % Sodium Chloride Flush 3 ML SYRINGE IVFLUSH ×3 (07:54→23:33)
[2022-06-19] MEDS: cefTRIAXone sodium 1 GM in 0.9 % Sodium Chloride 50 ML IV (08:00)
[2022-06-19 08:07] LABS: Atypical Lymphs Percent Manual 1 % (0-6); Band Neutrophils Percent 2 % (3-5); Lymphocytes Absolute Manual 2.9 X10*3/uL (1.2-4.9); Lymphocytes Percent Manual 61 % (20-40); Metamyelocytes Absolute 0.1 X10*3/uL; Metamyelocytes Percent 3 %; Monocytes Absolute Manual 0.6 X10*3/uL (0.1-1.2); Monocytes Percent Manual 12 % (2-11); Neutrophils Absolute Manual 1.1 X10*3/uL (2.0-8.3); Neutrophils Percent Manual 21 % (45-73); Nucleated Red Blood Cells 1 /100WBC (0-0)
[2022-06-19 08:12] LABS: Acanthocytes 1+ (0-2) /OIF; Burr Cells 1+ (0-2) /OIF; Hypochromasia 1+ (5-14) /OIF; Ovalocytes 1+ (5-14) /OIF; Platelet Estimate NORMAL (NORMAL); Platelet Morphology Comment NORMAL; RBC Morphology NOTED; Schistocytes 1+ (0-2) /OIF
[2022-06-19 08:31] LABS: Vitamin B12 334 pg/mL (200-900)
[2022-06-19] MEDS: Azithromycin 500 MG in 0.9 % Sodium Chloride 250 ML 125 MG IV (08:51)
--- NOTE | 2022-06-19 08:54 | MHC.CM.PN ---
Addendum entered by Enriqueta Norman RN 06/19/22 08:55: CORRECTION: PATIENT IS OBS Original Note: PATIENT IS LTC AT [facility] SHE DOES NOT USE O2 AT FACILITY. HCP COPY REQUESTED FROM [facility]. PLAN IS FOR IV ABX FOR PNEUMONIA AND RETURN TO FACILITY. IMM 06/19 IN CHART
--- NOTE | 2022-06-19 08:57 | PHA.MEDREC ---
Pharmacy Consult ? Medication Reconciliation Pharmacy has completed the medication reconciliation. Patient came from SNF with medication list. Kathryn Murphy, BassemD
[2022-06-19 10:36] LABS: Ferritin 2686 ng/mL (10-250)
[2022-06-19 10:49] LABS: Alanine Aminotransferase 11 U/L (0-31); Alkaline Phosphatase 127 U/L (39-117); Calcium 8.4 mg/dL (8.4-10.2); Creatinine Clr Calc Pharmacy 44.5; Total Protein 6.9 g/dL (6.5-8.0)
--- NOTE | 2022-06-19 10:51 | PM.EVENT ---
Event Note Date of Service: 06/19/22 Event Note: Day Team follow up S Seen and examined Reports rib pain on the L, states occurred about 3-4 days ago Denies coughing, fevers or chills; reports some THOMAS O vitals -- last documented Gen - comfortable when not turning to left CVS - S1S2; RRR (on tele it appeared to be a. 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 Continue antibiotics Wean from oxygen pain control check echo (pericardial effusion noted on CT chest) Restart home meds. [facility] records from earlier in the summer 2021 reviewed. H/H appears to be at her baseline (has history of MDS per documented history). S/p unit PRBCs overnight. Repeat h/h this afternoon (this morning's H/H likely checked too soon after transfusion). Remainder per H&P
--- NOTE | 2022-06-19 12:14 | P.CNHO_ITS ---
Subjective - Subjective Chief complaint: Consult For: CMML. Patient: new to practice Consult date: 06/19/22 Requesting Physician: Tyshawn. Primary Care Provider: Art Ortiz MD Medical Summary: DIAGNOSIS: CMML. CURRENT THERAPY: HPI - Consult Narrative Reason for consult: CONSULT FOR: ATYPICAL MONOCYTOSIS. Narrative: Ximena Cheng is a 87 year old lady, who presents with rib pain for the past 2 days. She did feel rather fatigued. She was noted to have a low blood count: CBC from yesterday revealed: WBC 5.3, HGB 7.3, HCT 23, PLT 233. She was given 2 units of packed RBCs. She was noted to have abnormal looking monocytes, with some blasts on the peripheral smear. A hematology consult was requested. PAST MEDICAL HISTORY: Upon talking to the patient she told me she is known to have a blood disorder. She has been followed along at [facility] by Dr. Cantu. Records from Dr. Cantu revealed: 1. 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 Still anemia is the only hematological abnormality. Blast count peripheral, stable it 3-4%. 2. Atrial fibrillation. 3. Obstructive sleep apnea. 4. GERD. 5. COPD. 6. Diverticulosis. FAMILY HISTORY: Dad had colon cancer. Home also had some sort of a malignancy. 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 She is . She has 2 children. She smoked years ago. She denies alcohol. ROS: She was tired however her energy has improved after the blood transfusion. No fever nor chills. Appetite is low. She has lost weight. Denies any headache no dizziness. No chest pain or trouble breathing. She denies any abdominal pain nausea vomiting heartburn indigestion. Bowels are working without any gross blood in it. Denies dysuria or hematuria. Denies any joint pain or muscle pain. No focal weakness. Denies depression. Denies skin rashes or pruritus. Review of Systems - Constitutional Reports system reviewed and no additional complaints, except as documented, Reports weight loss, Denies fever(s), Denies weakness - Eyes Reports system reviewed and no additional complaints, except as documented - ENT Reports system reviewed and no additional complaints, except as documented - Cardiovascular Reports system reviewed and no additional complaints, except as documented, Reports chest pain - Respiratory Reports no additional respiratory complaints - Gastrointestinal Reports system reviewed and no additional complaints, except as documented - Genitourinary Reports no additional female genitourinary complaints - Musculoskeletal Reports system reviewed and no additional complaints, except as documented - Integumentary/Breasts Skin/Breast: Reports no additional skin complaints - Neurologic Reports weakness - Psychiatric Reports system reviewed and no additional complaints, except as documented - Endocrine Reports no additional endocrine complaints - Hematologic/Lymphatic Reports system reviewed and no additional complaints, except as documented - Allergic/Immunologic Reports system reviewed and no additional complaints, except as documented Oncology Screenings - ECOG Performance Status ECOG Performance Status: 2 [facility] Medical History: Medical History (Last Reviewed 06/21/22 @ 10:50 by Nik Clay MD) Abnormal brain MRI Essential tremor Onset Date: ~06/19/22 Obstructive sleep apnea Parkinson's disease Functional capacity: uses cane/walker Patient : No Family History: Family History (Last Reviewed 06/21/22 @ 10:50 by Nik Clay MD) Mother Alzheimer's dementia Diverticulitis Father Cancer Surgical History: Surgical History (Last Reviewed 06/21/22 @ 10:50 by Nik Clay MD) Hx of cholecystectomy Hx of total knee replacement Social History: Social History (Last Reviewed 06/21/22 @ 10:50 by Nik Clay MD) Living Situation History: Household Members: Other Housing: Retirement Do you presently have visiting nurse or other home services: No Tobacco History: Patient Tobacco Use Status: Former Tobacco user Smoke Quit Date: 1991 Medications and Allergies Current Medications: Current Medications Acetaminophen (Acetaminophen 325 Mg Tablet) 650 mg PO Q6H PRN PRN Reason: Pain, Mild (Pain Scale 1-3) Amiodarone HCl (Amiodarone Hcl 200 Mg Tablet) 400 mg PO DAILY N[facility] Ascorbic Acid (Ascorbic Acid 500 Mg Tablet) 500 mg PO DAILY [facility] Docusate Sodium (Docusate Sodium 100 Mg Capsule) 100 mg PO BID NELIDA Enoxaparin Sodium (Enoxaparin Sodium 40 Mg/0.4 Ml Syringe) 40 mg SUBCUT BEDTIME NELIDA Last Admin: 06/19/22 02:24 Dose: 40 mg Gabapentin (Gabapentin 100 Mg Capsule) 200 mg PO BEDTIME NELIDA Ceftriaxone Sodium 1 gm/ (Sodium Chloride) 50 mls @ 100 mls/hr IV DAILY NELIDA Last Infusion: 06/19/22 08:39 Dose: Infused Azithromycin 500 mg/ Sodium (Chloride) 250 mls @ 125 mls/hr IV DAILY [facility] Last Infusion: 06/19/22 10:51 Dose: Infused Lactulose (Lactulose 20 Gm/30 Ml Solution) 10 gm PO Q24H PRN PRN Reason: Constipation Levothyroxine Sodium (Levothyroxine Sodium 100 Mcg Tablet) 100 mcg PO DAILY@0600 [facility] Melatonin (Melatonin 3 Mg Tablet) 6 mg PO BEDTIME PRN PRN Reason: Insomnia Melatonin (Melatonin 3 Mg Tablet) 6 mg PO BEDTIME NELIDA Montelukast Sodium (Montelukast Sodium 10 Mg Tablet) 10 mg PO DAILY [facility] Non-Formulary Medication (Carbidopa-Levodopa [Rytary]) 2 cap PO TID [facility] Omeprazole (Omeprazole 20 Mg Capsule.Dr) 20 mg PO DAILY@0630 [facility] Ondansetron HCl (Ondansetron Hcl 4 Mg/2 Ml Vial) 4 mg IVPUSH Q8H PRN PRN Reason: Nausea and Vomiting Pharmacy Consult (Consult Rx Perform Med Rec) 1 each MISCELLANE ONCE PRN PRN Reason: Consult order Primidone (Primidone 50 Mg Tablet) 100 mg PO BEDTIME [facility] Ropinirole HCl (Ropinirole Hcl 0.5 Mg Tablet) 1.5 mg PO TID [facility] Senna (Sennosides 8.6 Mg Tablet) 8.6 mg PO BEDTIME [facility] Sodium Chloride (0.9 % Sodium Chloride Flush 3 Ml Syringe) [facility] Last Admin: 06/19/22 07:54 Dose: 3 ml Home Medications Medication Instructions Recorded Confirmed Type primidone 50 mg tablet 100 mg PO BEDTIME 11/02/21 06/19/22 History amiodarone 200 mg tablet 400 mg PO DAILY 04/19/22 06/19/22 History gabapentin 100 mg capsule 200 mg PO BEDTIME 04/19/22 06/19/22 History lactulose 10 gram/15 mL oral 15 ml PO Q24H PRN Constipation 04/19/22 06/19/22 History solution lidocaine 5 % topical patch 1 patch topical DAILY 04/19/22 06/19/22 History montelukast 10 mg tablet 10 mg PO DAILY 04/19/22 06/19/22 History omeprazole 20 mg capsule,delayed 20 mg PO DAILY 04/19/22 06/19/22 History release ondansetron 4 mg disintegrating 4 mg PO Q8H PRN Nausea 04/19/22 06/19/22 History tablet ropinirole 3 mg tablet 1.5 mg PO TID 04/19/22 06/19/22 History sennosides 8.6 mg capsule (senna) 8.6 mg PO BEDTIME 04/19/22 06/19/22 History Saccharomyces boulardii 1 cap PO BID 06/19/22 06/19/22 History acetaminophen 325 mg tablet 975 mg PO Q8H 06/19/22 06/19/22 History ascorbic acid (vitamin C) 500 mg 500 mg PO DAILY 06/19/22 06/19/22 History tablet carbidopa ER 23.75 mg-levodopa 95 2 cap PO TID 06/19/22 06/19/22 History mg capsule,extended release (Rytary) carboxymethylcellulose sodium 1 % 1 drp ophthalmic (eye) BID 06/19/22 06/19/22 History eye drops carboxymethylcellulose sodium 1 % 1 drp ophthalmic (eye) Q12H PRN 06/19/22 06/19/22 History eye drops Dry Eye(S) docusate sodium 100 mg capsule 100 mg PO BID 06/19/22 06/19/22 History hydrocortisone 1 % topical cream 1 appl topical Q24H PRN Rash 06/19/22 06/19/22 History levothyroxine 100 mcg tablet 100 mcg PO DAILY 06/19/22 06/19/22 History melatonin 5 mg tablet 5 mg PO BEDTIME 06/19/22 06/19/22 History menthol 0.44 %-zinc oxide 20.6 % 1 appl topical BID 06/19/22 06/19/22 History topical ointment (Calmoseptine) midodrine 5 mg tablet 5 mg PO TID 06/19/22 06/19/22 History sennosides 8.6 mg tablet (senna) 17.2 mg PO Q24H PRN Constipation 06/19/22 06/19/22 History umeclidinium 62.5 mcg-vilanterol 1 inh inhalation DAILY 06/19/22 06/19/22 History 25 mcg/actuation powdr for inhalation (Anoro Ellipta) Allergies Allergy/AdvReac Type Severity Reaction Status Date / Time vancomycin Allergy Mild unknown Verified 06/20/22 13:07 Physical Exam Vital signs: Vital Signs Temp 98.1 F 06/19/22 11:51 Pulse 91 06/19/22 11:51 Resp 21 H 06/19/22 11:51 BP 123/60 06/19/22 11:51 Pulse Ox 80 L 06/19/22 11:51 O2 Del Method 06/19/22 11:51 O2 Flow Rate 2 06/19/22 11:51 Intake & Output 06/18/22 06/19/22 06/19/22 18:59 06:59 18:59 Intake Total 1333 / 1333 300 / 300 Balance 1333 / 1333 300 / 300 Intake: Intake (Blood Product) Amount 283 / 283 Red Blood Cells Aph (E0685) 283 / 283 Unit [id number] Intake, IV Amount 1050 / 1050 300 / 300 0.9 % Sodium Chloride 1,000 ml 1000 / 1000 @ 999 mls/hr IV .Q1H1M ONE Rx#: [id number] Azithromycin 500 mg In 0.9 % 250 / 250 Sodium Chloride 250 ml @ 125 mls/hr IV DAILY [facility] Rx#: [id number] Piperacillin Sodium/Tazobactam 50 / 50 3.375 gm In 0.9 % Sodium Chloride 50 ml @ 100 mls/hr IV ONCE [facility] Rx#:[id number] cefTRIAXone sodium 1 gm In 0.9 50 / 50 % Sodium Chloride 50 ml @ 100 mls/hr IV DAILY [facility] Rx#: [id number] Other: Urine Bedpan Weight 54.2 kg Weight 54.2 kg - Constitutional Present: mild distress - Routine HEENT Exam Head: Present: normal inspection, normocephalic ENT: Present: mucous membranes moist - Routine Neck Exam Present: supple - Routine Respiratory Exam Present: decreased breath sounds - Routine Cardiovascular Exam Cardiovascular: Present: S1, S2 - Routine Abdominal Exam Present: normal bowel sounds, nontender - Routine Extremities Exam Present: nontender - Routine Skin Exam Present: intact - Detailed Neurological Exam: Coma Scale Eye Opening: Spontaneous (4) - Routine Psychiatric Exam Present: normal affect Hem/Onc Consult Result - Labs CBC & Chem 7: 06/21/22 08:21 06/21/22 08:21 Labs: Short CBC 06/18/22 06/19/22 Range/Units 22:39 05:59 WBC 5.2 4.7 L (4.8-10.8) X10*3/uL Hgb 7.3 L 7.8 L (12.0-16.0) g/dl Hct 23.1 L 23.8 L (37.0-47.0) % Plt Count 233 174 D (160-400) X10*3/uL BMP 06/18/22 06/19/22 22:39 05:59 Sodium 132 L 133 L Potassium 4.6 4.4 Chloride 103 105 Carbon Dioxide 21 L 19 L BUN 16 14 Creatinine 0.79 0.73 Calcium 8.4 7.8 L D Liver Function 06/18/22 Range/Units 22:39 Total Bilirubin 0.4 (0.0-1.0) mg/dL Direct Bilirubin 0.2 (0.0-0.5) mg/dL AST 20 (5-31) U/L ALT 11 (0-31) U/L Alkaline Phosphatase 127 H (39-117) U/L Albumin 3.0 L (3.5-5.0) g/dL Urine 06/19/22 Range/Units 02:56 Urine Color Yellow Urine Appearance Cloudy Urine pH 5.0 (5.0-9.0) Ur Specific [place] 1.015 (1.005-1.025) Urine Protein Trace (Neg-Trace) mg/dL Urine Glucose (UA) Negative (Negative) mg/dL Assessment and Plan Patient Active problem list reviewed?: Yes (1) Symptomatic anemia Status: Acute Assessment and plan: This is a pleasant 87-year-old lady who presented with rib pain. She was noted to have a pneumonia. She is being treated for that. In addition she was noted to be significantly anemic. She has some atypical lymphocytes seen on the peripheral smear. On review of the history from patient it appears that she has had a known diagnosis of high-risk MDS with multi lineage dysplasia and ring sideroblasts. She actually initially had longstanding 5q minus single lineage MDS. She had a bone marrow exam at [facility] in 05/10: Continued involvement by myeloid neoplasm. Hypercellular marrow for age, 80% cellularity with trilineage dyspoiesis, 2-3% blasts, 7% ring sideroblasts. Flow cytometry: A population of myeloid blast that quick place dim CD45, CD 13, CD 34, CD 33, CD117, and HLA-DR that comprises 2-3% of total events. Chromosomes analysis: Forty-six XX, Del(5)(q14q33)/47,sl,del(1)(p34,p36.1),+8/45,sdl,del(6)(q13q22), -7,-8,gaudencio(12)t(8,12)(q21.1;p11.2)(cp2). Myeloid NGS panel: No pathogenic mutations detected. She is being treated under the care of Dr. Cantu. PLAN: She is being transfused for goal of greater than 7. Currently she is on Luspaterncept after her anemia progressed on reticacrit alone. Based upon her most recent hemoglobin trend, she seems to be responding to the Luspaterncept. The plan was to continue her on it. She is supposed to get weekly CBCs at rehab. She will be following up with Dr. Cantu in 3 months time, which will be next month. Thank you for the consult, Will follow along with you, Cc Dr. Cantu. Dr. Villagran. - Time Spent With Patient Time Spent with Patient (in minutes): 30
[2022-06-19] MEDS: Amiodarone HCL 200 MG TABLET 400 MG PO (12:15)
[2022-06-19] MEDS: rOPINIRole HCL 0.5 MG TABLET 1.5 MG PO ×2 (14:18→20:56)
--- NOTE | 2022-06-19 16:11 | PC.NURSE ---
THIS PCT ASSUMED CARE OF PT ,VS TAKEN PT RESTING IN BED WATCHING THE NEWS .
[2022-06-19] MEDS: Docusate Sodium 100 MG CAPSULE PO (20:56)
[2022-06-19] MEDS: Gabapentin 100 MG CAPSULE 200 MG PO (20:57)
[2022-06-19] MEDS: Sennosides 8.6 MG TABLET PO (20:57)
[2022-06-19] MEDS: Melatonin 3 MG TABLET 6 MG PO (20:57)
[2022-06-19] MEDS: Primidone 50 MG TABLET 100 MG PO (20:57)
[2022-06-20] VITALS: BP 128/60; PULSE 89; RESP 18; TEMP 37.1; O2SAT 100
--- NOTE | 2022-06-20 02:01 | PC.NURSE ---
Took over patient care around 2300 after receiving report. Pt was awake, alert and oriented. Pleasant and cooperative. Pt denies pain/sob. Was reported patent refused camera. Bed alarm on for safety.See shift assessment for complete assessment. Will continue to monitor.
[2022-06-20 03:53] VITALS: BP 109/59; PULSE 109; RESP 18; TEMP 36.8; O2SAT 100
[2022-06-20] MEDS: Omeprazole 20 MG CAPSULE.DR PO (05:55)
[2022-06-20] MEDS: Levothyroxine Sodium 100 MCG TABLET PO (05:55)
--- NOTE | 2022-06-20 07:00 | CA_ITS ---
Transthoracic Echocardiogram Patient (Last, First, Middle): Ximena Cheng, Gender: Female Date of : 1935 Age: 87 Procedure Date: 06/20/2022 Procedure Type: Transthoracic Echocardiogram Location: S3E Height: 167.64 cm Weight: 53.98 kg BSA: 1.60 m2 Heart Rate: 112 bpm BP: 132 / 57 mmHg Jordan Man: SB Referring MD: Andrzej Villagran MD Symptoms: pericardial effusion seen on CT chest Study Quality: Fair ECG Rhythm: Atrial Fibrillation Conclusions: - The left ventricular systolic function is normal. The calculated ejection fraction is 68% by biplane method. - Probable low flow, low gradient severe aortic stenosis. - There is a small pericardial effusion. Findings Procedure Information Contrast agent, definity, is being given per protocol without apparent complications. Left Ventricle Normal left ventricular cavity size. The left ventricular systolic function is normal. The calculated ejection fraction is 68% by biplane method. There is no evidence of regional wall motion abnormalities. Diastolic function is indeterminate on the basis of available data. There is mild septal asymmetric hypertrophy. Right Ventricle Normal right ventricular cavity size and systolic function. Atria The left atrium is mildly dilated. The right atrium is normal in size. Aortic Valve The aortic valve was not well visualized. There is mild calcification of the aortic valve. The mean gradient is 13 mmHg. The aortic valve area is 0.88 cm2. There is no aortic valve regurgitation. Stroke volume index 24cc/m2. Overall, probable low flow, low gradient severe aortic stenosis. Mitral Valve There is mild mitral annular calcification. There is no mitral valve regurgitation. There is no mitral valve stenosis. Pulmonic Valve The pulmonic valve was not well visualized. Tricuspid Valve There is trace tricuspid valve regurgitation. Tricuspid regurgitation envelope is inadequate for calculation of right ventricular systolic pressure. Great Vessels The aorta was not well visualized. Venous The inferior vena cava is normal in size and collapses greater than 50% with inspiration. Pericardium/Pleural There is a small pericardial effusion. There are no definitive echocardiographic findings of tamponade physiology. More prominent in some areas than others. Prior Study Comparison No prior study available for comparison. Measurements 2D Linear Measurements IVSd: 1.19 0.6-0.9/0.6-1.0 cm LVIDd: 2.96 3.9-5.3/4.2-5.9 cm LVIDd Index: 1.85 2.4-3.2/2.2-3.1 cm/m2 LVIDs: 1.80 2.0-3.6 cm LVPWd: 0.95 0.7-1.1 cm LA Diam: 4.10 2.7-3.8/3.0-4.0 cm LAIDs Index: 2.56 1.5-2.3 cm/m2 LV Mass: 110.58 67-162/88-224 g LV Mass Index: 69.11 43-95/49-115 g/m2 LVOT Diam: 2.00 3.0+(-)1.3 cm 2D Systolic Function EF 4C: 57.40 >55% EF 2C: 77.50 >55% EF BiP: 68.00 >55% Mitral Valve MV Pk E: 1.03 Aortic Valve AoV Pk Rory: 2.51 AoV Mn Rory: 1.66 AoV VTI: 0.44 AoV Pk Grad: 25.00 Aov Mn Grad: 13.00 PAYAL Cont.VTI: 0.88 LVOT LVOT Pk Rory: 0.69 LVOT Mn Rory: 0.50 LVOT VTI: 0.12 LVOT Pk Grad: 2.00 LVOT Mn Grad: 1.00 LVOT Diam: 2.00 LVOT Area: 3.14 Diastolic Function MV Pk E: 1.03 Right Ventricle TAPSE (mm): 18.00 TVS' Rory: 9.36 Tricuspid Valve RA Press: 3.00 Great Vessels Aorta Ao Asc: 2.50 2.1-3.4 cm Updated in Other Vendor System with Status of Final Nik Clay MD electronically signed on 06/20/2022 12:19:13 PM with status of Final
[2022-06-20 08:00] VITALS: BP 118/61; PULSE 68; RESP 20; TEMP 36.3; O2SAT 100
[2022-06-20] MEDS: Ascorbic Acid 500 MG TABLET PO (08:19)
[2022-06-20] MEDS: Amiodarone HCL 200 MG TABLET 400 MG PO (08:19)
[2022-06-20] MEDS: rOPINIRole HCL 0.5 MG TABLET 1.5 MG PO ×3 (08:19→21:21)
[2022-06-20] MEDS: cefTRIAXone sodium 1 GM in 0.9 % Sodium Chloride 50 ML IV (08:19)
[2022-06-20] MEDS: Montelukast Sodium 10 MG TABLET PO (08:19)
[2022-06-20] MEDS: 0.9 % Sodium Chloride Flush 3 ML SYRINGE IVFLUSH ×3 (08:33→23:34)
[2022-06-20] MEDS: Acetaminophen 325 MG TABLET 650 MG PO (08:33)
[2022-06-20 08:52] LABS: Hematocrit 22.9 % (37.0-47.0); Hemoglobin 7.7 g/dl (12.0-16.0); Mean Corpuscular HGB Conc 33.6 g/dl (31.0-35.0); Mean Corpuscular Hemoglobin 30.1 pg (27.0-33.0); Mean Corpuscular Volume 89.5 fL (80.0-98.0); Mean Platelet Volume 12.2 fL (9.4-12.3); NRBC Pct Auto 0.5 /100WBC (0.0-0.2); Platelet Count 161 X10*3/uL (160-400); Red Blood Count 2.56 X10*6/uL (4.20-5.50); Red Cell Distribution Width 17.9 % (11.0-16.0); WBC ABN SCTR FOR CBC 1; White Blood Count 4.1 X10*3/uL (4.8-10.8)
--- NOTE | 2022-06-20 09:38 | HO.PM.IMPN ---
Subjective Subjective Date of Service: 06/20/22 Interval History: Patient seen for follow-up. Patient states she feels much better since admission. Improvement in cough and weakness. Still requiring 3 L supplemental oxygen. Constitutional Constitutional: Reports weakness Respiratory Respiratory: Reports cough and Reports pain with cough Neurologic Neurologic: Reports weakness Physical Exam Vital Signs: Vital Signs: Last Vital Signs Temp 97.4 F 06/20/22 08:00 Pulse 68 06/20/22 08:00 Resp 20 06/20/22 08:00 BP 118/61 06/20/22 08:00 Pulse Ox 100 06/20/22 08:00 O2 Del Method 06/20/22 08:00 O2 Flow Rate 3 06/20/22 08:00 BMI result Body Mass Index 19.3 Elderly female lying in bed in no distress Left-sided chest wall tenderness present Neck supple, no JVD Regular rate and rhythm, S1-S2 heard Left-sided crackles appreciated Abdomen soft nontender, no guarding, no rigidity Patient is drowsy but awakens to verbal stimulus, oriented to self, place and time ; no focal motor weakness Psych: Normal mood No pedal edema Objective Data Active Medications Acetaminophen (Acetaminophen 325 Mg Tablet) 650 mg PO Q6H PRN PRN Reason: Pain, Mild (Pain Scale 1-3) Last Admin: 06/20/22 08:33 Dose: 650 mg Documented By: PATO Amiodarone HCl (Amiodarone Hcl 200 Mg Tablet) 400 mg PO DAILY [facility] Last Admin: 06/20/22 08:19 Dose: 400 mg Documented By: PATO Ascorbic Acid (Ascorbic Acid 500 Mg Tablet) 500 mg PO DAILY [facility] Last Admin: 06/20/22 08:19 Dose: 500 mg Documented By: PATO Docusate Sodium (Docusate Sodium 100 Mg Capsule) 100 mg PO BID [facility] Last Admin: 06/20/22 08:20 Dose: Not Given Documented By: PATO Non-Admin Reason: Patient Refused Enoxaparin Sodium (Enoxaparin Sodium 40 Mg/0.4 Ml Syringe) 40 mg SUBCUT BEDTIME [facility] Last Admin: 06/19/22 20:57 Dose: 40 mg Documented By: MIRIAM Gabapentin (Gabapentin 100 Mg Capsule) 200 mg PO BEDTIME [facility] Last Admin: 06/19/22 20:57 Dose: 200 mg Documented By: MIRIAM Ceftriaxone Sodium 1 gm/ (Sodium Chloride) 50 mls @ 100 mls/hr IV DAILY [facility] Last Infusion: 06/20/22 09:12 Dose: 0 mls/hr Documented By: PATO Azithromycin 500 mg/ Sodium (Chloride) 250 mls @ 125 mls/hr IV DAILY [facility] Last Infusion: 06/19/22 10:51 Dose: 0 mls/hr Documented By: CHARLEYANSophia Lactulose (Lactulose 20 Gm/30 Ml Solution) 10 gm PO Q24H PRN PRN Reason: Constipation Levothyroxine Sodium (Levothyroxine Sodium 100 Mcg Tablet) 100 mcg PO DAILY@0600 [facility] Last Admin: 06/20/22 05:55 Dose: 100 mcg Documented By: KACY Melatonin (Melatonin 3 Mg Tablet) 6 mg PO BEDTIME PRN PRN Reason: Insomnia Last Admin: 06/19/22 20:57 Dose: 6 mg Documented By: MIRIAM Melatonin (Melatonin 3 Mg Tablet) 6 mg PO BEDTIME [facility] Last Admin: 06/19/22 21:17 Dose: Not Given Documented By: MIRIAM Non-Admin Reason: given per prn order Montelukast Sodium (Montelukast Sodium 10 Mg Tablet) 10 mg PO DAILY [facility] Last Admin: 06/20/22 08:19 Dose: 10 mg Documented By: PATO Non-Formulary Medication (Carbidopa-Levodopa [Rytary]) 2 cap PO TID [facility] Omeprazole (Omeprazole 20 Mg Capsule.Dr) 20 mg PO DAILY@0630 [facility] Last Admin: 06/20/22 05:55 Dose: 20 mg Documented By: KACY Ondansetron HCl (Ondansetron Hcl 4 Mg/2 Ml Vial) 4 mg IVPUSH Q8H PRN PRN Reason: Nausea and Vomiting Pharmacy Consult (Consult Rx Perform Med Rec) 1 each MISCELLANE ONCE PRN PRN Reason: Consult order Primidone (Primidone 50 Mg Tablet) 100 mg PO BEDTIME [facility] Last Admin: 06/19/22 20:57 Dose: 100 mg Documented By: MIRIAM Ropinirole HCl (Ropinirole Hcl 0.5 Mg Tablet) 1.5 mg PO TID [facility] Last Admin: 06/20/22 08:19 Dose: 1.5 mg Documented By: PATO Senna (Sennosides 8.6 Mg Tablet) 8.6 mg PO BEDTIME [facility] Last Admin: 06/19/22 20:57 Dose: 8.6 mg Documented By: MIRIAM Sodium Chloride (0.9 % Sodium Chloride Flush 3 Ml Syringe) 3 ml IVFLUSH QSHIFT [facility] Last Admin: 06/20/22 08:33 Dose: 3 ml Documented By: PATO Labs CBC & Chem 7: 06/20/22 08:29 06/19/22 05:59 Labs: Laboratory Results - last 24 hr 06/18/22 06/18/22 06/19/22 22:39 22:39 05:59 MCV MCH MCHC RDW Plt Count MPV Immature Gran % (Auto) Neut % (Auto) Lymph % (Auto) [place] % (Auto) Eos % (Auto) Baso % (Auto) Lymph # (Auto) [place] # (Auto) Eos # (Auto) Baso # (Auto) Abs Immat Gran (auto) Absolute Neuts (auto) Absolute Nucleated RBC Nucleated RBC % (auto) Smear Path Review SEE NOTE Estim Creat Clear Calc 44.5 Calcium 8.4 Ferritin 2686 H ALT 11 Alkaline Phosphatase 127 H Total Protein 6.9 Albumin 3.0 L 06/20/22 08:29 MCV 89.5 MCH 30.1 MCHC 33.6 RDW 17.9 H Plt Count 161 MPV 12.2 Immature Gran % (Auto) Cancelled Neut % (Auto) Cancelled Lymph % (Auto) Cancelled [place] % (Auto) Cancelled Eos % (Auto) Cancelled Baso % (Auto) Cancelled Lymph # (Auto) Cancelled [place] # (Auto) Cancelled Eos # (Auto) Cancelled Baso # (Auto) Cancelled Abs Immat Gran (auto) Cancelled Absolute Neuts (auto) Cancelled Absolute Nucleated RBC 0.020 H Nucleated RBC % (auto) 0.5 H Smear Path Review Estim Creat Clear Calc Calcium Ferritin ALT Alkaline Phosphatase Total Protein Albumin Microbiology Microbiology Results: Microbiology 06/19/22 07:40 Urine Culture - Preliminary Urine clean catch - Urine crews top Gram negative paola 06/19/22 01:25 Blood Culture - Preliminary Blood - Venous No growth after 24 hours. 06/19/22 01:25 Blood Culture - Preliminary Blood - Venous No growth after 24 hours. Assessment and Plan (1) Hypoxia: Status: Acute (2) Pneumonia: Status: Acute (3) Chest pain: Status: Acute (4) Hypothyroid: Status: Acute (5) Parkinson's disease: Status: Acute (6) Essential tremor: Status: Acute (7) Dysphagia: Status: Acute (8) CML (chronic myelocytic leukemia): Status: Acute Plan This is a 87-year-old female resident of retirement with pertinent history of atrial fibrillation, essential tremor, Parkinson's disease, hypothyroidism was sent from retirement for evaluation of left-sided chest discomfort. #.? Acute hypoxemic respiratory failure secondary to: #. Left-sided community-acquired pneumonia -On empiric IV antibiotics, Rocephin and azithromycin. Monitor oxygen saturation and wean as tolerated. Maintain greater than 90%. #. 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 Status post PRBC transfusion at admission. Heme-Onc following. #.? Chest pain, musculoskeletal in origin -conservative management with p.o. analgesics p.r.n. #. Imaging with pericardial effusion -echo pending #.? Generalized weakness -likely in the setting of anemia + infection. #.? Parkinson's disease -continue home medications #.? Hypothyroidism -continue Synthroid. Elevated TSH. Check t3, t4 #.? COPD -continue home inhalers #.? Paroxysmal atrial fibrillation -rate controlled in the ER.? Not on anticoagulation DVT prophylaxis:? Lovenox 40 mg daily Regular diet Do not intubate.? Discussed with patient at bedside and she stated that she would like to be resuscitated but not intubated. Quality Stroke Does the patient have a stroke diagnosis?: No VTE Prior VTE?: No VTE Risk Level:: Medical - moderate - high VTE Device Contraindication: Treatment Not Indicated VTE Drug Contraindication: N/A - Med Ordered
[2022-06-20 09:52] LABS: Atypical Lymph Absolute Manual 0.1 x10*3/uL; Atypical Lymphs Percent Manual 3 % (0-6); Band Neutrophils Percent 1 % (3-5); Blast Percent 2 %; Blastocytes Absolute 0.1 X10*3/uL; Eosinophils Percent Manual 1 % (0-4); Lymphocytes Absolute Manual 1.8 X10*3/uL (1.2-4.9); Lymphocytes Percent Manual 44 % (20-40); Metamyelocytes Absolute 0.2 X10*3/uL; Metamyelocytes Percent 6 %; Monocytes Percent Manual 24 % (2-11); Myelocytes Absolute 0.1 X10*/uL; Myelocytes Percent 2 %; Neutrophils Absolute Manual 0.7 X10*3/uL (2.0-8.3); Neutrophils Percent Manual 17 % (45-73)
[2022-06-20 09:53] LABS: Large Platelet PRESENT; Platelet Estimate NORMAL (NORMAL); Platelet Morphology Comment NOTED; RBC Morphology NOTED
[2022-06-20 09:54] LABS: Schistocytes 1+ (0-2) /OIF
[2022-06-20] MEDS: Azithromycin 500 MG in 0.9 % Sodium Chloride 250 ML 125 MG IV (11:11)
--- NOTE | 2022-06-20 11:30 | MHC.CLN ---
RE: CONSULT PT REPORTED WT LOSS 14-23# ON NURSING ADMISSION ASSESSMENT WT HX REVEALS: CURRENT WT 54.2KG (10/2021) WT 56.7KG PT WITH 4% NONSIGNIFICANT WT LOSS X 6 MONTHS DIET RX: REGULAR-APPROPRIATE RECOMMEND ADDING ENSURE BID TO INCREASE KCALS SUPP TO PROVIDE 700KCALS, 40G PROTEIN MONITOR PO INTAKE CLOSELY
[2022-06-20 11:44] LABS: Free T4 (Free Thyroxine) 1.42 ng/dL (0.71-1.85)
[2022-06-20 15:48] VITALS: BP 106/58; PULSE 97; RESP 16; TEMP 36.7; O2SAT 98
[2022-06-20 19:02] VITALS: BP 111/58; PULSE 113; RESP 16; TEMP 36.9; O2SAT 95
[2022-06-20] MEDS: Docusate Sodium 100 MG CAPSULE PO (21:20)
[2022-06-20] MEDS: Enoxaparin Sodium 40 MG/0.4 ML SYRINGE SUBCUT (21:20)
[2022-06-20] MEDS: Gabapentin 100 MG CAPSULE 200 MG PO (21:21)
[2022-06-20] MEDS: Primidone 50 MG TABLET 100 MG PO (21:21)
[2022-06-20] MEDS: Sennosides 8.6 MG TABLET PO (21:22)
[2022-06-20] MEDS: Melatonin 3 MG TABLET 6 MG PO (21:22)
[2022-06-21] VITALS: BP 105/55; PULSE 109; RESP 17; TEMP 36.4; O2SAT 97
[2022-06-21] MEDS: Levothyroxine Sodium 100 MCG TABLET PO (05:34)
[2022-06-21] MEDS: Omeprazole 20 MG CAPSULE.DR PO (05:34)
[2022-06-21 07:54] VITALS: BP 108/59; PULSE 113; RESP 16; TEMP 36.9; O2SAT 99
[2022-06-21] MEDS: 0.9 % Sodium Chloride Flush 3 ML SYRINGE IVFLUSH (08:27)
[2022-06-21] MEDS: cefTRIAXone sodium 1 GM in 0.9 % Sodium Chloride 50 ML IV (08:27)
[2022-06-21] MEDS: Amiodarone HCL 200 MG TABLET 400 MG PO (08:28)
[2022-06-21] MEDS: Ascorbic Acid 500 MG TABLET PO (08:28)
[2022-06-21] MEDS: Docusate Sodium 100 MG CAPSULE PO ×2 (08:28→19:45)
[2022-06-21] MEDS: Montelukast Sodium 10 MG TABLET PO (08:28)
[2022-06-21] MEDS: rOPINIRole HCL 0.5 MG TABLET 1.5 MG PO ×3 (08:28→19:46)
[2022-06-21 08:33] LABS: Hematocrit 21.5 % (37.0-47.0); Hemoglobin 7.1 g/dl (12.0-16.0); Mean Corpuscular Hemoglobin 30.1 pg (27.0-33.0); Mean Corpuscular Volume 91.1 fL (80.0-98.0); Mean Platelet Volume 12.1 fL (9.4-12.3); Platelet Count 141 X10*3/uL (160-400); Red Blood Count 2.36 X10*6/uL (4.20-5.50); Red Cell Distribution Width 17.7 % (11.0-16.0)
[2022-06-21 08:37] LABS: WBC ABN SCTR FOR CBC 1
[2022-06-21 08:56] LABS: Anion Gap 13 (12-20); Blood Urea Nitrogen 12 mg/dL (9-16); Calcium 7.4 mg/dL (8.4-10.2); Carbon Dioxide 19 mmol/L (22-29); Chloride 101 mmol/L (96-108); Creatinine Clr Calc Pharmacy 54.1; Estimated Glomerular Filt Rate > 60; Glucose Random 75 mg/dL (60-115); Sodium 129 mmol/L (135-145)
[2022-06-21 09:03] LABS: Band Neutrophils Percent 7 % (3-5); Lymphocytes Percent Manual 35 % (20-40); Metamyelocytes Percent 3 %; Monocytes Percent Manual 32 % (2-11); Neutrophils Percent Manual 23 % (45-73); Nucleated Red Blood Cells 1 /100WBC (0-0)
[2022-06-21 09:05] LABS: Acanthocytes 1+ (0-2) /OIF; Large Platelet PRESENT; Ovalocytes 1+ (5-14) /OIF; Platelet Estimate DECREASED (NORMAL); Platelet Morphology Comment NOTED; Polychromasia 1+ (0-2) /OIF; RBC Morphology NOTED; Schistocytes 1+ (0-2) /OIF; Tear Drop Cells 1+ (0-2) /OIF
[2022-06-21 09:06] LABS: Burr Cells 1+ (0-2) /OIF
--- NOTE | 2022-06-21 10:25 | HO.PM.IMPN ---
Subjective Subjective Date of Service: 06/21/22 Interval History: No significant nursing events overnight. Patient seen for follow-up. No new complaints. Has persistent chest pain. Improvement in cough and weakness. On 2 L supplemental oxygen. Constitutional Constitutional: Reports fatigue and Reports weakness Respiratory Respiratory: Reports cough and Reports pain with cough Gastrointestinal Gastrointestinal: Reports no additional gastrointestinal complaints Neurologic Neurologic: Reports weakness Endocrine Endocrine: Reports fatigue Physical Exam Vital Signs: Vital Signs: Last Vital Signs Temp 98.4 F 06/21/22 07:54 Pulse 113 H 06/21/22 07:54 Resp 16 06/21/22 07:54 BP 108/59 L 06/21/22 07:54 Pulse Ox 99 06/21/22 07:54 O2 Del Method 06/21/22 07:54 O2 Flow Rate 3 06/21/22 07:54 BMI result Body Mass Index 19.3 Elderly female lying in bed in no distress on 3L supplemental oxygen Left-sided chest wall tenderness present Neck supple, no JVD Regular rate and rhythm, S1-S2 heard Left-sided crackles appreciated Abdomen soft nontender, no guarding, no rigidity Patient is drowsy but awakens to verbal stimulus, oriented to self, place and time ; no focal motor weakness Psych: Normal mood No pedal edema Objective Data Active Medications Acetaminophen (Acetaminophen 325 Mg Tablet) 650 mg PO Q6H PRN PRN Reason: Pain, Mild (Pain Scale 1-3) Last Admin: 06/20/22 08:33 Dose: 650 mg Documented By: PATO Amiodarone HCl (Amiodarone Hcl 200 Mg Tablet) 400 mg PO DAILY [facility] Last Admin: 06/21/22 08:28 Dose: 400 mg Documented By: ANGELA Ascorbic Acid (Ascorbic Acid 500 Mg Tablet) 500 mg PO DAILY [facility] Last Admin: 06/21/22 08:28 Dose: 500 mg Documented By: ANGELA Docusate Sodium (Docusate Sodium 100 Mg Capsule) 100 mg PO BID [facility] Last Admin: 06/21/22 08:28 Dose: 100 mg Documented By: ANGELA Enoxaparin Sodium (Enoxaparin Sodium 40 Mg/0.4 Ml Syringe) 40 mg SUBCUT BEDTIME [facility] Last Admin: 06/20/22 21:20 Dose: 40 mg Documented By: MIRIAM Gabapentin (Gabapentin 100 Mg Capsule) 200 mg PO BEDTIME [facility] Last Admin: 06/20/22 21:21 Dose: 200 mg Documented By: MIRIAM Ceftriaxone Sodium 1 gm/ (Sodium Chloride) 50 mls @ 100 mls/hr IV DAILY [facility] Last Admin: 06/21/22 08:27 Dose: 100 mls/hr Documented By: ANGELA Azithromycin 500 mg/ Sodium (Chloride) 250 mls @ 125 mls/hr IV DAILY [facility] Last Infusion: 06/20/22 13:20 Dose: 0 mls/hr Documented By: PATO Lactulose (Lactulose 20 Gm/30 Ml Solution) 10 gm PO Q24H PRN PRN Reason: Constipation Levothyroxine Sodium (Levothyroxine Sodium 100 Mcg Tablet) 100 mcg PO DAILY@0600 [facility] Last Admin: 06/21/22 05:34 Dose: 100 mcg Documented By: KACY Melatonin (Melatonin 3 Mg Tablet) 6 mg PO BEDTIME PRN PRN Reason: Insomnia Last Admin: 06/19/22 20:57 Dose: 6 mg Documented By: MIRIAM Melatonin (Melatonin 3 Mg Tablet) 6 mg PO BEDTIME [facility] Last Admin: 06/20/22 21:22 Dose: 6 mg Documented By: MIRIAM Montelukast Sodium (Montelukast Sodium 10 Mg Tablet) 10 mg PO DAILY [facility] Last Admin: 06/21/22 08:28 Dose: 10 mg Documented By: ANGELA Non-Formulary Medication (Carbidopa-Levodopa [Rytary]) 2 cap PO TID [facility] Omeprazole (Omeprazole 20 Mg Good.) 20 mg PO DAILY@0630 [facility] Last Admin: 06/21/22 05:34 Dose: 20 mg Documented By: KACY Ondansetron HCl (Ondansetron Hcl 4 Mg/2 Ml Vial) 4 mg IVPUSH Q8H PRN PRN Reason: Nausea and Vomiting Pharmacy Consult (Consult Rx Perform Med Rec) 1 each MISCELLANE ONCE PRN PRN Reason: Consult order Primidone (Primidone 50 Mg Tablet) 100 mg PO BEDTIME [facility] Last Admin: 06/20/22 21:21 Dose: 100 mg Documented By: MIRIAM Ropinirole HCl (Ropinirole Hcl 0.5 Mg Tablet) 1.5 mg PO TID [facility] Last Admin: 06/21/22 08:28 Dose: 1.5 mg Documented By: ANGELA Senna (Sennosides 8.6 Mg Tablet) 8.6 mg PO BEDTIME [facility] Last Admin: 06/20/22 21:22 Dose: 8.6 mg Documented By: MIRIAM Sodium Chloride (0.9 % Sodium Chloride Flush 3 Ml Syringe) 3 ml IVFLUSH QSHIFT [facility] Last Admin: 06/21/22 08:27 Dose: 3 ml Documented By: ANGELA Labs CBC & Chem 7: 06/21/22 08:21 06/21/22 08:21 Labs: Laboratory Results - last 24 hr 06/19/22 06/20/22 06/21/22 01:24 11:01 08:21 MCV 91.1 MCH 30.1 MCHC 33.0 RDW 17.7 H Plt Count 141 L MPV 12.1 Immature Gran % (Auto) Cancelled Neut % (Auto) Cancelled Lymph % (Auto) Cancelled [place] % (Auto) Cancelled Eos % (Auto) Cancelled Baso % (Auto) Cancelled Lymph # (Auto) Cancelled [place] # (Auto) Cancelled Eos # (Auto) Cancelled Baso # (Auto) Cancelled Abs Immat Gran (auto) Cancelled Absolute Neuts (auto) Cancelled Absolute Nucleated RBC 0.000 Nucleated RBC % (auto) 0.0 Neutrophils % (Manual) 23 L Band Neutrophils % 7 H Lymphocytes % (Manual) 35 Monocytes % (Manual) 32 H Metamyelocytes % 3 Nucleated RBCs 1 H Platelet Estimate DECREASED Large Platelets PRESENT Plt Morphology Comment NOTED RBC Morphology NOTED Polychromasia 1+ (0-2) Tear Drop Cells 1+ (0-2) Ovalocytes 1+ (5-14) [place] Cells 1+ (0-2) Acanthocytes (Spur) 1+ (0-2) Schistocytes 1+ (0-2) Anion Gap Estim Creat Clear Calc Estimated GFR Random Glucose Calcium Free T4 1.42 Positive JUDITH Work-up TNP Crossmatch See Detail 06/21/22 08:21 MCV MCH MCHC RDW Plt Count MPV Immature Gran % (Auto) Neut % (Auto) Lymph % (Auto) [place] % (Auto) Eos % (Auto) Baso % (Auto) Lymph # (Auto) [place] # (Auto) Eos # (Auto) Baso # (Auto) Abs Immat Gran (auto) Absolute Neuts (auto) Absolute Nucleated RBC Nucleated RBC % (auto) Neutrophils % (Manual) Band Neutrophils % Lymphocytes % (Manual) Monocytes % (Manual) Metamyelocytes % Nucleated RBCs Platelet Estimate Large Platelets Plt Morphology Comment RBC Morphology Polychromasia Tear Drop Cells Ovalocytes Manda Cells Acanthocytes (Spur) Schistocytes Anion Gap 13 Estim Creat Clear Calc 54.1 Estimated GFR > 60 Random Glucose 75 Calcium 7.4 L Free T4 Positive JUDITH Work-up Crossmatch Microbiology Microbiology Results: Microbiology 06/19/22 07:40 Urine Culture - Final Urine clean catch - Urine crews top Escherichia coli 06/19/22 01:25 Blood Culture - Preliminary Blood - Venous No growth after 48 hours. 06/19/22 01:25 Blood Culture - Preliminary Blood - Venous No growth after 48 hours. Assessment and Plan (1) Hypoxia: Status: Acute (2) Pneumonia: Status: Acute (3) UTI (urinary tract infection): Status: Acute (4) Aortic stenosis: Status: Acute (5) Parkinson's disease: Status: Acute (6) CML (chronic myelocytic leukemia): Status: Acute (7) Hypothyroid: Status: Acute Plan This is a 87-year-old female [facility] with pertinent history of atrial fibrillation, essential tremor, Parkinson's disease, hypothyroidism was [facility] for evaluation of left-sided chest discomfort. #.? Acute hypoxemic respiratory failure secondary to: #. Left-sided community-acquired pneumonia -On empiric IV antibiotics, Rocephin and azithromycin. Monitor oxygen saturation and wean as tolerated. Maintain greater than 90%. #. Acute UTI Urine culture with pansensitive E coli.?On ceftriaxone as above #. Significant -Noted on Echo. Consulted cardiology #. 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 Status post PRBC transfusion at admission. Heme-Onc following. #.? Chest pain, musculoskeletal in origin -conservative management with p.o. analgesics p.r.n. #.? Generalized weakness -likely in the setting of anemia + infection. #.? Parkinson's disease -continue home medications #.? Hypothyroidism -continue Synthroid. Elevated TSH. T4 normal #.? COPD -continue home inhalers #.? Paroxysmal atrial fibrillation -Not on anticoagulation DVT prophylaxis:? Lovenox 40 mg daily Regular diet Do not intubate.? Discussed with patient at bedside and she stated that she would like to be resuscitated but not intubated. Admit as inpatient and will require two night minimum hospital stay for need for supplemental oxygen and IV antibiotics. Cardiology consult pending Quality Stroke Does the patient have a stroke diagnosis?: No VTE Prior VTE?: No VTE Risk Level:: Medical - moderate - high VTE Device Contraindication: Treatment Not Indicated VTE Drug Contraindication: N/A - Med Ordered
[2022-06-21 10:32] LABS: Triiodothyronine T3 Free 1.8 pg/mL (2.3-4.2)
--- NOTE | 2022-06-21 10:47 | PM.CNCAR ---
History of Present Illness History of Present Illness Date of Service: 06/21/22 Chief complaint: Rib Pain Narrative: This is a cardiology consultation regarding aortic stenosis on the echocardiogram. Patient had an echocardiogram this hospitalization and that showed possible low gradient severe aortic stenosis. This was actually performed for question of pericardial effusion seen on the CT scan. Patient otherwise has a history of atrial fibrillation, tremors, Parkinson's disease and other comorbidities. She has been admitted with a diagnosis of left-sided community-acquired pneumonia based on admission documentation. She has been put on IV diuretics. Otherwise, from a cardiac standpoint she denies any history of coronary artery disease, myocardial infarction or cardiomyopathy or in fact any other cardiac issues. At this time, she also denies any complaints like angina or shortness of breath or anything else. No significant leg swelling. There is atrial fibrillation mentioned in the history but she is not on any anticoagulation. Review of Systems Review of Systems: Yes all other systems are reviewed and are negative Constitutional: Constitutional: Reports as per HPI Eyes: Eyes: Reports as per HPI ENT: Reports as per HPI Cardiovascular: Cardiovascular: Reports as per HPI, Denies acrocyanosis, Denies cool extremities, Denies chest pain, Denies leg edema, Denies lightheadedness, Denies palpitations and Denies dyspnea Respiratory: Respiratory: Reports as per HPI, Reports no additional respiratory complaints and Denies dyspnea Gastrointestinal: Gastrointestinal: Reports as per HPI and Reports no additional gastrointestinal complaints Genitourinary: Genitourinary: Reports as per HPI Musculoskeletal: Musculoskeletal: Reports no additional musculoskeletal complaints and Reports as per HPI Integumentary/Breasts: Skin/Breast: Reports system reviewed and no additional complaints, except as docu Neurologic: Reports system reviewed and no additional complaints, except as documented and Reports as per HPI Psychiatric: Psychiatric: Reports no additional psychiatric complaints and Reports as per HPI Endocrine: Endocrine: Reports no additional endocrine complaints, Reports as per HPI and Denies palpitations Hematologic/Lymphatic: Hematologic/Lymphatic: Reports no additional hematologic/lymphatic complaints and Reports as per HPI Allergic/Immunologic: Allergic/Immunologic: Reports no additional allergic/immunologic complaints and Reports as per HPI [facility] Past Medical History Medical History Abnormal brain MRI Essential tremor (~06/19/22) Obstructive sleep apnea Parkinson's disease Functional capacity: uses cane/walker Family History Family History Mother Alzheimer's dementia Diverticulitis Father Cancer Pertinent family history: Patient denies any significant cardiac history in the family. Surgical History Surgical History Hx of cholecystectomy Hx of total knee replacement Social History Social History Household Members: Other Housing: Care Home Do you presently have visiting nurse or other home services: No Alcohol intake: never Patient Tobacco Use Status: Former Tobacco user Quit Date: 1991 Meds Allergies Allergy/AdvReac Type Severity Reaction Status Date / Time vancomycin Allergy Mild unknown Verified 06/20/22 13:07 Active Medications: Current Medications Acetaminophen (Acetaminophen 325 Mg Tablet) 650 mg PO Q6H PRN PRN Reason: Pain, Mild (Pain Scale 1-3) Last Admin: 06/20/22 08:33 Dose: 650 mg Amiodarone HCl (Amiodarone Hcl 200 Mg Tablet) 400 mg PO DAILY [facility] Last Admin: 06/21/22 08:28 Dose: 400 mg Ascorbic Acid (Ascorbic Acid 500 Mg Tablet) 500 mg PO DAILY [facility] Last Admin: 06/21/22 08:28 Dose: 500 mg Docusate Sodium (Docusate Sodium 100 Mg Capsule) 100 mg PO BID [facility] Last Admin: 06/21/22 08:28 Dose: 100 mg Enoxaparin Sodium (Enoxaparin Sodium 40 Mg/0.4 Ml Syringe) 40 mg SUBCUT BEDTIME [facility] Last Admin: 06/20/22 21:20 Dose: 40 mg Gabapentin (Gabapentin 100 Mg Capsule) 200 mg PO BEDTIME [facility] Last Admin: 06/20/22 21:21 Dose: 200 mg Ceftriaxone Sodium 1 gm/ (Sodium Chloride) 50 mls @ 100 mls/hr IV DAILY [facility] Last Admin: 06/21/22 08:27 Dose: 100 mls/hr Azithromycin 500 mg/ Sodium (Chloride) 250 mls @ 125 mls/hr IV DAILY [facility] Last Infusion: 06/20/22 13:20 Dose: Infused Lactulose (Lactulose 20 Gm/30 Ml Solution) 10 gm PO Q24H PRN PRN Reason: Constipation Levothyroxine Sodium (Levothyroxine Sodium 100 Mcg Tablet) 100 mcg PO DAILY@0600 [facility] Last Admin: 06/21/22 05:34 Dose: 100 mcg Melatonin (Melatonin 3 Mg Tablet) 6 mg PO BEDTIME PRN PRN Reason: Insomnia Last Admin: 06/19/22 20:57 Dose: 6 mg Melatonin (Melatonin 3 Mg Tablet) 6 mg PO BEDTIME [facility] Last Admin: 06/20/22 21:22 Dose: 6 mg Montelukast Sodium (Montelukast Sodium 10 Mg Tablet) 10 mg PO DAILY [facility] Last Admin: 06/21/22 08:28 Dose: 10 mg Non-Formulary Medication (Carbidopa-Levodopa [Rytary]) 2 cap PO TID [facility] Omeprazole (Omeprazole 20 Mg Capsule.Dr) 20 mg PO DAILY@0630 [facility] Last Admin: 06/21/22 05:34 Dose: 20 mg Ondansetron HCl (Ondansetron Hcl 4 Mg/2 Ml Vial) 4 mg IVPUSH Q8H PRN PRN Reason: Nausea and Vomiting Pharmacy Consult (Consult Rx Perform Med Rec) 1 each MISCELLANE ONCE PRN PRN Reason: Consult order Primidone (Primidone 50 Mg Tablet) 100 mg PO BEDTIME [facility] Last Admin: 06/20/22 21:21 Dose: 100 mg Ropinirole HCl (Ropinirole Hcl 0.5 Mg Tablet) 1.5 mg PO TID [facility] Last Admin: 06/21/22 08:28 Dose: 1.5 mg Senna (Sennosides 8.6 Mg Tablet) 8.6 mg PO BEDTIME [facility] Last Admin: 06/20/22 21:22 Dose: 8.6 mg Sodium Chloride (0.9 % Sodium Chloride Flush 3 Ml Syringe) 3 ml IVFLUSH QSHIFT [facility] Last Admin: 06/21/22 08:27 Dose: 3 ml Home Medications Medication Instructions Recorded Confirmed Last Taken Type primidone 50 mg tablet 100 mg PO BEDTIME 11/02/21 06/19/22 Unknown History amiodarone 200 mg tablet 400 mg PO DAILY 04/19/22 06/19/22 Unknown History gabapentin 100 mg capsule 200 mg PO BEDTIME 04/19/22 06/19/22 Unknown History lactulose 10 gram/15 mL oral 15 ml PO Q24H PRN Constipation 04/19/22 06/19/22 Unknown History solution lidocaine 5 % topical patch 1 patch topical DAILY 04/19/22 06/19/22 Unknown History montelukast 10 mg tablet 10 mg PO DAILY 04/19/22 06/19/22 Unknown History omeprazole 20 mg capsule,delayed 20 mg PO DAILY 04/19/22 06/19/22 Unknown History release ondansetron 4 mg disintegrating 4 mg PO Q8H PRN Nausea 04/19/22 06/19/22 Unknown History tablet ropinirole 3 mg tablet 1.5 mg PO TID 04/19/22 06/19/22 Unknown History sennosides 8.6 mg capsule (senna) 8.6 mg PO BEDTIME 04/19/22 06/19/22 Unknown History Saccharomyces boulardii 1 cap PO BID 06/19/22 06/19/22 Unknown History acetaminophen 325 mg tablet 975 mg PO Q8H 06/19/22 06/19/22 Unknown History ascorbic acid (vitamin C) 500 mg 500 mg PO DAILY 06/19/22 06/19/22 Unknown History tablet carbidopa ER 23.75 mg-levodopa 95 2 cap PO TID 06/19/22 06/19/22 Unknown History mg capsule,extended release (Rytary) carboxymethylcellulose sodium 1 % 1 drp ophthalmic (eye) BID 06/19/22 06/19/22 Unknown History eye drops carboxymethylcellulose sodium 1 % 1 drp ophthalmic (eye) Q12H PRN 06/19/22 06/19/22 Unknown History eye drops Dry Eye(S) docusate sodium 100 mg capsule 100 mg PO BID 06/19/22 06/19/22 Unknown History hydrocortisone 1 % topical cream 1 appl topical Q24H PRN Rash 06/19/22 06/19/22 Unknown History levothyroxine 100 mcg tablet 100 mcg PO DAILY 06/19/22 06/19/22 Unknown History melatonin 5 mg tablet 5 mg PO BEDTIME 06/19/22 06/19/22 Unknown History menthol 0.44 %-zinc oxide 20.6 % 1 appl topical BID 06/19/22 06/19/22 Unknown History topical ointment (Calmoseptine) midodrine 5 mg tablet 5 mg PO TID 06/19/22 06/19/22 Unknown History sennosides 8.6 mg tablet (senna) 17.2 mg PO Q24H PRN Constipation 06/19/22 06/19/22 Unknown History umeclidinium 62.5 mcg-vilanterol 1 inh inhalation DAILY 06/19/22 06/19/22 Unknown History 25 mcg/actuation powdr for inhalation (Anoro Ellipta) Physical Exam Vital Signs: Vital Signs: Last Vital Signs Temp 98.4 F 06/21/22 07:54 Pulse 113 H 06/21/22 07:54 Resp 16 06/21/22 07:54 BP 108/59 L 06/21/22 07:54 Pulse Ox 99 06/21/22 07:54 O2 Del Method 06/21/22 07:54 O2 Flow Rate 3 06/21/22 07:54 BMI result Body Mass Index 19.3 Const: General: comfortable, no acute distress and ill appearing Nutritional Appearance: thin Orientation/consciousness: patient oriented x3 HEENT: Other: Unremarkable Head: Yes normal to inspection Neck: Neck: Yes normal visual inspection Chest: Chest palpation & inspection: normal inspection of the chest Resp: Auscultation: clear to auscultation bilaterally Cardio: Other: Distant heart sounds Palpation: normal PMI Heart sounds: S1 normal heart sound present, S2 normal heart sound present, no gallops, Murmur heart sound present systolic II/ and at the right sternal border and no rubs GI: Palpation (GI): Soft to palpation Back/Spine/Pelvis: Other: unremarkable Skin: General skin exam: no rashes or lesions noted Neuro: General: patient oriented x3 Extrem: General: Yes normal to inspection Psych: Mental Status: mental status grossly normal Objective Labs and Meds Result diagrams: 06/21/22 08:21 06/21/22 08:21 Lab results: Laboratory Results - last 24 hr 06/20/22 06/20/22 06/21/22 11:01 11:01 08:21 RBC 2.36 L Hgb 7.1 L Hct 21.5 L MCV 91.1 MCH 30.1 MCHC 33.0 RDW 17.7 H Plt Count 141 L MPV 12.1 Immature Gran % (Auto) Cancelled Neut % (Auto) Cancelled Lymph % (Auto) Cancelled [place] % (Auto) Cancelled Eos % (Auto) Cancelled Baso % (Auto) Cancelled Lymph # (Auto) Cancelled [place] # (Auto) Cancelled Eos # (Auto) Cancelled Baso # (Auto) Cancelled Abs Immat Gran (auto) Cancelled Absolute Neuts (auto) Cancelled Absolute Nucleated RBC 0.000 Nucleated RBC % (auto) 0.0 Neutrophils % (Manual) 23 L Band Neutrophils % 7 H Lymphocytes % (Manual) 35 Monocytes % (Manual) 32 H Metamyelocytes % 3 Nucleated RBCs 1 H Platelet Estimate DECREASED Large Platelets PRESENT Plt Morphology Comment NOTED RBC Morphology NOTED Polychromasia 1+ (0-2) Tear Drop Cells 1+ (0-2) Ovalocytes 1+ (5-14) Manda Cells 1+ (0-2) Acanthocytes (Spur) 1+ (0-2) Schistocytes 1+ (0-2) Sodium Potassium Chloride Carbon Dioxide Anion Gap BUN Creatinine Estim Creat Clear Calc Estimated GFR Random Glucose Calcium Free T4 1.42 Free T3 1.8 L 06/21/22 08:21 RBC Hgb Hct MCV MCH MCHC RDW Plt Count MPV Immature Gran % (Auto) Neut % (Auto) Lymph % (Auto) [place] % (Auto) Eos % (Auto) Baso % (Auto) Lymph # (Auto) [place] # (Auto) Eos # (Auto) Baso # (Auto) Abs Immat Gran (auto) Absolute Neuts (auto) Absolute Nucleated RBC Nucleated RBC % (auto) Neutrophils % (Manual) Band Neutrophils % Lymphocytes % (Manual) Monocytes % (Manual) Metamyelocytes % Nucleated RBCs Platelet Estimate Large Platelets Plt Morphology Comment RBC Morphology Polychromasia Tear Drop Cells Ovalocytes Manda Cells Acanthocytes (Spur) Schistocytes Sodium 129 L Potassium 4.0 Chloride 101 Carbon Dioxide 19 L Anion Gap 13 BUN 12 Creatinine 0.65 Estim Creat Clear Calc 54.1 Estimated GFR > 60 Random Glucose 75 Calcium 7.4 L Free T4 Free T3 ECG Interpretation: EKG with sinus rhythm at 78/Min; baseline artifact possibly from tremors; otherwise unremarkable. Imaging Radiologist's impression: Impressions Chest CT 06/18/22 20:05 IMPRESSION: 1. Emphysematous change of lungs. 2. Bibasilar consolidation/atelectasis, left greater than right. Patchy reticular and alveolar opacity at the left lung apex within the left upper lobe. 3. Small pericardial effusion. 4. Bilateral pleural effusions, left greater than right. 5. No displaced rib fracture. Old healed fracture posterior right 10th rib. Fleischner guidelines were followed. Assessment and Plan (1) Aortic stenosis: Status: Acute Based on the echocardiogram, she has probable low gradient severe aortic stenosis. Clinically, she has several comorbidities and malnourished/ill-appearing. She is really not suitable for any workup at this time. Also she does not have any overt symptoms. If able, we can follow her in the clinic. Discussed about this the patient. (2) PAF (paroxysmal atrial fibrillation): Status: Acute Atrial fibrillation mentioned in the history but no clear documentation of the same. During the echocardiogram, thought to be in atrial fibrillation but EKG shows sinus/artifact. Will need to get another EKG and also keep her on telemetry. She has not been on anticoagulation in the past. May not be suitable either. She is quite anemic. Procedures Date of Service Date of Service: 06/21/22
[2022-06-21 10:56] LABS: Lymphocytes Absolute Manual 1.3 X10*3/uL (1.2-4.9); Metamyelocytes Absolute 0.1 X10*3/uL; Monocytes Absolute Manual 1.2 X10*3/uL (0.1-1.2); Neutrophils Absolute Manual 1.1 X10*3/uL (2.0-8.3); White Blood Count 3.6 X10*3/uL (4.8-10.8)
[2022-06-21] MEDS: levoFLOXacin 750 MG TABLET PO (12:08)
[2022-06-21 16:00] VITALS: BP 110/69; PULSE 100; RESP 20; TEMP 37.2; O2SAT 97
[2022-06-21] MEDS: Sennosides 8.6 MG TABLET PO (19:45)
[2022-06-21] MEDS: Gabapentin 100 MG CAPSULE 200 MG PO (19:45)
[2022-06-21] MEDS: Primidone 50 MG TABLET 100 MG PO (19:45)
[2022-06-21] MEDS: Melatonin 3 MG TABLET 6 MG PO (19:45)
[2022-06-21] MEDS: Enoxaparin Sodium 40 MG/0.4 ML SYRINGE SUBCUT (19:46)
[2022-06-21 20:21] VITALS: BP 120/71; PULSE 107; RESP 20; O2SAT 98
[2022-06-22] VITALS: BP 112/55; PULSE 103; RESP 18; TEMP 36.4; O2SAT 96
--- NOTE | 2022-06-22 | ECG_ITS ---
Test Reason : tachycardia Blood Pressure : / mmHG Vent. Rate : 101 BPM Atrial Rate : 000 BPM P-R Int : 000 ms QRS Dur : 090 ms QT Int : 362 ms P-R-T Axes : 000 006 063 degrees QTc Int : 469 ms Atrial fibrillation with rapid ventricular response Low voltage QRS Intra-ventricular conduction delay Abnormal ECG No previous ECGs available Referred By: Darryn Yung Electronically Signed By:JEAN DUEÑAS MD
[2022-06-22] MEDS: Levothyroxine Sodium 100 MCG TABLET PO (05:29)
[2022-06-22] MEDS: Omeprazole 20 MG CAPSULE.DR PO (05:29)
[2022-06-22 07:21] LABS: Anion Gap 17 (12-20); Blood Urea Nitrogen 13 mg/dL (9-16); Calcium 7.4 mg/dL (8.4-10.2); Carbon Dioxide 16 mmol/L (22-29); Chloride 99 mmol/L (96-108); Creatinine Clr Calc Pharmacy 48.2; Estimated Glomerular Filt Rate > 60; Glucose Random 66 mg/dL (60-115); Potassium 4.7 mmol/L (3.3-5.1); Sodium 127 mmol/L (135-145)
[2022-06-22 07:44] VITALS: BP 115/56; PULSE 103; RESP 20; TEMP 36.4; O2SAT 98
[2022-06-22] MEDS: Ascorbic Acid 500 MG TABLET PO (07:52)
[2022-06-22] MEDS: Montelukast Sodium 10 MG TABLET PO (07:52)
[2022-06-22] MEDS: rOPINIRole HCL 0.5 MG TABLET 1.5 MG PO ×3 (07:52→20:32)
[2022-06-22] MEDS: Amiodarone HCL 200 MG TABLET 400 MG PO (07:52)
[2022-06-22 08:10] LABS: Mean Corpuscular HGB Conc 33.3 g/dl (31.0-35.0); Mean Corpuscular Hemoglobin 29.7 pg (27.0-33.0); Mean Platelet Volume 12.4 fL (9.4-12.3); NRBC Pct Auto 0.9 /100WBC (0.0-0.2); Platelet Count 137 X10*3/uL (160-400); Red Blood Count 2.09 X10*6/uL (4.20-5.50); Red Cell Distribution Width 17.5 % (11.0-16.0)
[2022-06-22 08:13] LABS: Anion Gap 12 (12-20); Blood Urea Nitrogen 13 mg/dL (9-16); Calcium 7.4 mg/dL (8.4-10.2); Carbon Dioxide 22 mmol/L (22-29); Chloride 98 mmol/L (96-108); Estimated Glomerular Filt Rate > 60; Glucose Random 76 mg/dL (60-115); Sodium 128 mmol/L (135-145)
[2022-06-22 08:34] LABS: WBC ABN SCTR FOR CBC 1
--- NOTE | 2022-06-22 09:07 | P.PNIM_ITS ---
Subjective Subjective Date of Service: 06/22/22 Interval History: No significant nursing events overnight. Patient seen for follow-up. No new complaints. Has persistent chest pain. Improvement in cough and weakness. On 2 L supplemental oxygen. Constitutional Constitutional: Reports fatigue and Reports weakness Respiratory Respiratory: Reports cough and Reports pain with cough Gastrointestinal Gastrointestinal: Reports no additional gastrointestinal complaints Neurologic Neurologic: Reports weakness Endocrine Endocrine: Reports fatigue Physical Exam Vital Signs: Vital Signs: Last Vital Signs Temp 97.5 F 06/22/22 07:44 Pulse 103 H 06/22/22 07:44 Resp 20 06/22/22 07:44 BP 115/56 L 06/22/22 07:44 Pulse Ox 98 06/22/22 07:44 O2 Del Method 06/22/22 07:44 O2 Flow Rate 2 06/21/22 20:21 BMI result Body Mass Index 19.3 Objective Data Active Medications Acetaminophen (Acetaminophen 325 Mg Tablet) 650 mg PO Q6H PRN PRN Reason: Pain, Mild (Pain Scale 1-3) Last Admin: 06/20/22 08:33 Dose: 650 mg Documented By: PATO Amiodarone HCl (Amiodarone Hcl 200 Mg Tablet) 400 mg PO DAILY [facility] Last Admin: 06/22/22 07:52 Dose: 400 mg Documented By: ANGELA Ascorbic Acid (Ascorbic Acid 500 Mg Tablet) 500 mg PO DAILY [facility] Last Admin: 06/22/22 07:52 Dose: 500 mg Documented By: ANGELA Docusate Sodium (Docusate Sodium 100 Mg Capsule) 100 mg PO BID [facility] Last Admin: 06/21/22 19:45 Dose: 100 mg Documented By: KACY Enoxaparin Sodium (Enoxaparin Sodium 40 Mg/0.4 Ml Syringe) 40 mg SUBCUT BEDTIME [facility] Last Admin: 06/21/22 19:46 Dose: 40 mg Documented By: KACY Gabapentin (Gabapentin 100 Mg Capsule) 200 mg PO BEDTIME [facility] Last Admin: 06/21/22 19:45 Dose: 200 mg Documented By: KACY Lactulose (Lactulose 20 Gm/30 Ml Solution) 10 gm PO Q24H PRN PRN Reason: Constipation Levofloxacin (Levofloxacin 750 Mg Tablet) 750 mg PO Q24H [facility] Last Admin: 06/21/22 12:08 Dose: 750 mg Documented By: ANGELA Levothyroxine Sodium (Levothyroxine Sodium 100 Mcg Tablet) 100 mcg PO DAILY@0600 [facility] Last Admin: 06/22/22 05:29 Dose: 100 mcg Documented By: KACY Melatonin (Melatonin 3 Mg Tablet) 6 mg PO BEDTIME PRN PRN Reason: Insomnia Last Admin: 06/19/22 20:57 Dose: 6 mg Documented By: MIRIAM Melatonin (Melatonin 3 Mg Tablet) 6 mg PO BEDTIME [facility] Last Admin: 06/21/22 19:45 Dose: 6 mg Documented By: KACY Montelukast Sodium (Montelukast Sodium 10 Mg Tablet) 10 mg PO DAILY [facility] Last Admin: 06/22/22 07:52 Dose: 10 mg Documented By: ANGELA Non-Formulary Medication (Carbidopa-Levodopa [Rytary]) 2 cap PO TID [facility] Omeprazole (Omeprazole 20 Mg Capsule.Dr) 20 mg PO DAILY@0630 [facility] Last Admin: 06/22/22 05:29 Dose: 20 mg Documented By: KACY Ondansetron HCl (Ondansetron Hcl 4 Mg/2 Ml Vial) 4 mg IVPUSH Q8H PRN PRN Reason: Nausea and Vomiting Pharmacy Consult (Consult Rx Perform Med Rec) 1 each MISCELLANE ONCE PRN PRN Reason: Consult order Primidone (Primidone 50 Mg Tablet) 100 mg PO BEDTIME [facility] Last Admin: 06/21/22 19:45 Dose: 100 mg Documented By: KACY Ropinirole HCl (Ropinirole Hcl 0.5 Mg Tablet) 1.5 mg PO TID [facility] Last Admin: 06/22/22 07:52 Dose: 1.5 mg Documented By: ANGELA Senna (Sennosides 8.6 Mg Tablet) 8.6 mg PO BEDTIME [facility] Last Admin: 06/21/22 19:45 Dose: 8.6 mg Documented By: KACY Sodium Chloride (0.9 % Sodium Chloride Flush 3 Ml Syringe) 3 ml IVFLUSH QSHIFT [facility] Last Admin: 06/22/22 07:49 Dose: Not Given Documented By: ANGELA Non-Admin Reason: No Access Labs CBC & Chem 7: 06/22/22 07:43 06/22/22 07:43 Labs: Laboratory Results - last 24 hr 06/20/22 06/21/22 06/22/22 11:01 08:21 06:18 MCV MCH MCHC RDW Plt Count MPV Immature Gran % (Auto) Neut % (Auto) Lymph % (Auto) [place] % (Auto) Eos % (Auto) Baso % (Auto) Lymph # (Auto) [place] # (Auto) Eos # (Auto) Baso # (Auto) Abs Immat Gran (auto) Absolute Neuts (auto) Absolute Nucleated RBC Nucleated RBC % (auto) Abs Neuts (Manual) 1.1 L Lymphocytes # (Manual) 1.3 Monocytes # (Manual) 1.2 Metamyelocytes # 0.1 Anion Gap 17 Estim Creat Clear Calc 48.2 Estimated GFR > 60 Random Glucose 66 Calcium 7.4 L Free T3 1.8 L 06/22/22 06/22/22 07:43 07:43 MCV 89.0 MCH 29.7 MCHC 33.3 RDW 17.5 H Plt Count 137 L MPV 12.4 H Immature Gran % (Auto) Cancelled Neut % (Auto) Cancelled Lymph % (Auto) Cancelled [place] % (Auto) Cancelled Eos % (Auto) Cancelled Baso % (Auto) Cancelled Lymph # (Auto) Cancelled [place] # (Auto) Cancelled Eos # (Auto) Cancelled Baso # (Auto) Cancelled Abs Immat Gran (auto) Cancelled Absolute Neuts (auto) Cancelled Absolute Nucleated RBC 0.030 H Nucleated RBC % (auto) 0.9 H Abs Neuts (Manual) Lymphocytes # (Manual) Monocytes # (Manual) Metamyelocytes # Anion Gap 12 Estim Creat Clear Calc 51.0 Estimated GFR > 60 Random Glucose 76 Calcium 7.4 L Free T3 Microbiology Microbiology Results: Microbiology 06/19/22 07:40 Urine Culture - Final Urine clean catch - Urine crews top Escherichia coli Assessment and Plan (1) Hyponatremia: Status: Acute (2) CML (chronic myelocytic leukemia): Status: Acute (3) PAF (paroxysmal atrial fibrillation): Status: Acute (4) Aortic stenosis: Status: Acute (5) UTI (urinary tract infection): Status: Acute (6) Pneumonia: Status: Acute (7) Hypothyroid: Status: Acute Plan This is a 87-year-old female resident of retirement with pertinent history of atrial fibrillation, essential tremor, Parkinson's disease, hypothyroidism was sent from retirement for evaluation of left-sided chest discomfort. #.? 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 Status post PRBC transfusion at admission.? Noted Hb drop, will transfuse again. Heme-Onc following. #. Hyponatremia -likely hypovolemic. Will resuscitate and monitor in am #.? Acute hypoxemic respiratory failure secondary to: #.? Left-sided community-acquired pneumonia -Resolved, patient now maintaining normal O2 saturation at room air. -IV Abx transitioned to oral levaquin. Antibiotic stop date 06/24 #.? Acute UTI -Urine culture with pansensitive E coli. -Abx stop date 06/24 #. Significant -Consulted cardiology - recommend conservative management #.? Chest pain, musculoskeletal in origin -conservative management with p.o. analgesics p.r.n. #.? Generalized weakness -likely in the setting of anemia + infection. #.? Parkinson's disease -continue home medications #.? Hypothyroidism -continue Synthroid. Elevated TSH. T4 normal #.? COPD -continue home inhalers #.? Paroxysmal atrial fibrillation -Not on anticoagulation DVT prophylaxis:? Lovenox 40 mg daily Regular diet Do not intubate.? Discussed with patient at bedside and she stated that she would like to be resuscitated but not intubated. Admit as inpatient and will require two night minimum hospital stay for need for pRBC transfusion and IV crystalloid resuscitation Quality Stroke Does the patient have a stroke diagnosis?: No VTE Prior VTE?: No VTE Risk Level:: Medical - moderate - high VTE Device Contraindication: Treatment Not Indicated VTE Drug Contraindication: N/A - Med Ordered
[2022-06-22 09:25] LABS: Atypical Lymphs Percent Manual 1 % (0-6); Band Neutrophils Percent 5 % (3-5); Basophils Percent Manual 1 % (0-2); Blast Percent 1 %; Eosinophils Percent Manual 1 % (0-4); Lymphocytes Percent Manual 45 % (20-40); Metamyelocytes Percent 1 %; Monocytes Percent Manual 33 % (2-11); Myelocytes Percent 2 %; Neutrophils Percent Manual 10 % (45-73); Nucleated Red Blood Cells 3 /100WBC (0-0)
[2022-06-22 09:27] LABS: Burr Cells 1+ (0-2) /OIF; Ovalocytes 1+ (5-14) /OIF; Platelet Estimate DECREASED (NORMAL); Platelet Morphology Comment NORMAL; RBC Morphology NOTED; Schistocytes 1+ (0-2) /OIF; Tear Drop Cells 1+ (0-2) /OIF
[2022-06-22 09:28] LABS: Polychromasia 1+ (0-2) /OIF
[2022-06-22 09:30] LABS: Lymphocytes Absolute Manual 1.6 X10*3/uL (1.2-4.9); Monocytes Absolute Manual 1.2 X10*3/uL (0.1-1.2); Myelocytes Absolute 0.1 X10*/uL; Neutrophils Absolute Manual 0.5 X10*3/uL (2.0-8.3); White Blood Count 3.5 X10*3/uL (4.8-10.8)
[2022-06-22] MEDS: Docusate Sodium 100 MG CAPSULE PO ×2 (09:48→20:31)
--- NOTE | 2022-06-22 10:58 | PM.PNCARD ---
Subjective Subjective Date of Service: 06/22/22 Interval history: She denies any cardiac symptoms. States she feels okay. Review of Systems Review of Systems Yes all other systems are reviewed and are negative Constitutional: Reports as per HPI Eyes: Reports as per HPI Reports as per HPI Cardiovascular: Reports as per HPI, Denies acrocyanosis, Denies cool extremities, Denies chest pain, Denies leg edema, Denies lightheadedness, Denies palpitations and Denies dyspnea Respiratory: Reports as per HPI, Reports no additional respiratory complaints and Denies dyspnea Gastrointestinal: Reports as per HPI and Reports no additional gastrointestinal complaints Genitourinary: Reports as per HPI Musculoskeletal: Reports no additional musculoskeletal complaints and Reports as per HPI Skin/Breast: Reports system reviewed and no additional complaints, except as docu Reports system reviewed and no additional complaints, except as documented and Reports as per HPI Psychiatric: Reports no additional psychiatric complaints and Reports as per HPI Endocrine: Reports no additional endocrine complaints, Reports as per HPI and Denies palpitations Hematologic/Lymphatic: Reports no additional hematologic/lymphatic complaints and Reports as per HPI Allergic/Immunologic: Reports no additional allergic/immunologic complaints and Reports as per HPI Physical Exam Vital Signs: Last Vital Signs Temp 97.5 F 06/22/22 07:44 Pulse 103 H 06/22/22 07:44 Resp 20 06/22/22 07:44 BP 115/56 L 06/22/22 07:44 Pulse Ox 98 06/22/22 07:44 O2 Del Method 06/22/22 07:44 O2 Flow Rate 2 06/21/22 20:21 BMI result Body Mass Index 19.3 Const General: comfortable, no acute distress and ill appearing Nutritional Appearance: thin Orientation/consciousness: patient oriented x3 HEENT Other: Unremarkable Head: Yes normal to inspection Neck Neck: Yes normal visual inspection Chest Chest palpation & inspection: normal inspection of the chest Resp Auscultation: clear to auscultation bilaterally Cardio Other: Distant heart sounds Palpation: normal PMI Heart sounds: S1 normal heart sound present, S2 normal heart sound present, no gallops, Murmur heart sound present systolic II/ and at the right sternal border and no rubs GI Palpation (GI): Soft to palpation Back/Spine/Pelvis Other: unremarkable Skin General skin exam: no rashes or lesions noted Neuro General: patient oriented x3 Extrem General: Yes normal to inspection Psych Mental Status: mental status grossly normal Objective Labs and Meds Result diagrams: 06/22/22 07:43 06/22/22 07:43 Lab results: Laboratory Results - last 24 hr 06/22/22 06/22/22 06/22/22 06:18 07:43 07:43 WBC 3.5 L RBC 2.09 L Hgb 6.2 L* Hct 18.6 L* MCV 89.0 MCH 29.7 MCHC 33.3 RDW 17.5 H Plt Count 137 L MPV 12.4 H Immature Gran % (Auto) Cancelled Neut % (Auto) Cancelled Lymph % (Auto) Cancelled [place] % (Auto) Cancelled Eos % (Auto) Cancelled Baso % (Auto) Cancelled Lymph # (Auto) Cancelled [place] # (Auto) Cancelled Eos # (Auto) Cancelled Baso # (Auto) Cancelled Abs Immat Gran (auto) Cancelled Absolute Neuts (auto) Cancelled Absolute Nucleated RBC 0.030 H Nucleated RBC % (auto) 0.9 H Neutrophils % (Manual) 10 L Band Neutrophils % 5 Lymphocytes % (Manual) 45 H Atypical Lymphs % (Man) 1 Monocytes % (Manual) 33 H Eosinophils % (Manual) 1 Basophils % (Manual) 1 Metamyelocytes % 1 Myelocytes % 2 Blast Cells % (Manual) 1 Abs Neuts (Manual) 0.5 L Lymphocytes # (Manual) 1.6 Monocytes # (Manual) 1.2 Myelocytes # 0.1 Nucleated RBCs 3 H Platelet Estimate DECREASED Plt Morphology Comment NORMAL RBC Morphology NOTED Polychromasia 1+ (0-2) Tear Drop Cells 1+ (0-2) Ovalocytes 1+ (5-14) Loiza Cells 1+ (0-2) Schistocytes 1+ (0-2) Sodium 127 L 128 L Potassium 4.7 4.0 Chloride 99 98 Carbon Dioxide 16 L 22 Anion Gap 17 12 BUN 13 13 Creatinine 0.73 0.69 Estim Creat Clear Calc 48.2 51.0 Estimated GFR > 60 > 60 Random Glucose 66 76 Calcium 7.4 L 7.4 L Blood Type Antibody Screen Crossmatch Crossmatch ([facility]) 06/22/22 09:12 WBC RBC Hgb Hct MCV MCH MCHC RDW Plt Count MPV Immature Gran % (Auto) Neut % (Auto) Lymph % (Auto) [place] % (Auto) Eos % (Auto) Baso % (Auto) Lymph # (Auto) [place] # (Auto) Eos # (Auto) Baso # (Auto) Abs Immat Gran (auto) Absolute Neuts (auto) Absolute Nucleated RBC Nucleated RBC % (auto) Neutrophils % (Manual) Band Neutrophils % Lymphocytes % (Manual) Atypical Lymphs % (Man) Monocytes % (Manual) Eosinophils % (Manual) Basophils % (Manual) Metamyelocytes % Myelocytes % Blast Cells % (Manual) Abs Neuts (Manual) Lymphocytes # (Manual) Monocytes # (Manual) Myelocytes # Nucleated RBCs Platelet Estimate Plt Morphology Comment RBC Morphology Polychromasia Tear Drop Cells Ovalocytes [place] Cells Schistocytes Sodium Potassium Chloride Carbon Dioxide Anion Gap BUN Creatinine Estim Creat Clear Calc Estimated GFR Random Glucose Calcium Blood Type O Positive Antibody Screen POSITIVE Crossmatch See Detail Crossmatch ([facility]) See Detail Progress Note: A&P Assessment and plan (1) Aortic stenosis: Status: Acute Assessment and Plan: Based on the echocardiogram, she has probable low gradient severe aortic stenosis. Overall, she is not suitable for any invasive care at this time. She also has no symptoms and hence we can follow this in the clinic. (2) Atrial fibrillation with rapid ventricular response: Status: Acute Assessment and Plan: EKG/telemetry suggestive of atrial fibrillation. She is listed to be on amiodarone 400 mg daily which is too high of a dose. Thyroid function seems abnormal. Hence probably stop this completely at this time. Start digoxin with a loading dose. If necessary, we can reintroduce amio at a lower dose. With regard to anticoagulation, she is not on it, presumably from severe anemia. Today's hemoglobin is 6.2. Hence does not seem to be candidate for the same. Plan Discussed with Time Spent With Patient Time: Total time spent is greater than 50% in coordination of care (as documented) at patient's floor/unit and/or counseling patient: 35min. Progress Note: Quality Stroke Does the patient have a stroke diagnosis?: No Procedures Date of Service Date of Service: 06/22/22
[2022-06-22 13:28] VITALS: BP 111/61; PULSE 93; RESP 16; TEMP 36.4
[2022-06-22 13:45] VITALS: BP 106/57; PULSE 89; RESP 16; TEMP 36.3
[2022-06-22] MEDS: levoFLOXacin 750 MG TABLET PO (14:19)
[2022-06-22] MEDS: Carbidopa/Levodopa CR 25/100 TABLET.ER 2 TAB PO ×2 (14:19→20:32)
[2022-06-22] MEDS: Digoxin 0.25 MG TABLET PO ×3 (14:19→20:32)
[2022-06-22] MEDS: 0.9 % Sodium Chloride 500 ML IV (15:42)
[2022-06-22 15:55] VITALS: BP 106/59; PULSE 100; RESP 16; TEMP 36.7
[2022-06-22 16:19] LABS: Hemoglobin 6.2 g/dl (12.0-16.0)
[2022-06-22 16:20] LABS: Hematocrit 18.6 % (37.0-47.0)
[2022-06-22] MEDS: Enoxaparin Sodium 40 MG/0.4 ML SYRINGE SUBCUT (20:31)
[2022-06-22] MEDS: Primidone 50 MG TABLET 100 MG PO (20:31)
[2022-06-22] MEDS: Sennosides 8.6 MG TABLET PO (20:31)
[2022-06-22] MEDS: Melatonin 3 MG TABLET 6 MG PO (20:32)
[2022-06-22] MEDS: Gabapentin 100 MG CAPSULE 200 MG PO (20:32)
[2022-06-22] MEDS: 0.9 % Sodium Chloride Flush 3 ML SYRINGE IVFLUSH (23:53)
[2022-06-23] VITALS: BP 98/55; PULSE 97; RESP 18; TEMP 36.8; O2SAT 94
[2022-06-23 04:14] VITALS: BP 94/52; PULSE 95; RESP 18; TEMP 36.6; O2SAT 95
[2022-06-23] MEDS: Levothyroxine Sodium 100 MCG TABLET PO (05:30)
[2022-06-23] MEDS: Omeprazole 20 MG CAPSULE.DR PO (05:30)
[2022-06-23 07:14] LABS: Hematocrit 21.2 % (37.0-47.0); Hemoglobin 7.1 g/dl (12.0-16.0); Mean Corpuscular HGB Conc 33.5 g/dl (31.0-35.0); Mean Corpuscular Hemoglobin 29.8 pg (27.0-33.0); Mean Corpuscular Volume 89.1 fL (80.0-98.0); PLT CLUMP 1; Red Blood Count 2.38 X10*6/uL (4.20-5.50); Red Cell Distribution Width 16.3 % (11.0-16.0)
[2022-06-23 07:15] LABS: WBC ABN SCTR FOR CBC 1; White Blood Count 3.5 X10*3/uL (4.8-10.8)
[2022-06-23 07:36] LABS: Blood Urea Nitrogen 14 mg/dL (9-16); Calcium 7.1 mg/dL (8.4-10.2); Creatinine Clr Calc Pharmacy 51.7; Estimated Glomerular Filt Rate > 60; Glucose Random 73 mg/dL (60-115)
[2022-06-23 07:44] LABS: Anion Gap 15 (12-20); Carbon Dioxide 19 mmol/L (22-29); Chloride 95 mmol/L (96-108); Potassium 4.1 mmol/L (3.3-5.1); Sodium 125 mmol/L (135-145)
[2022-06-23 07:59] VITALS: BP 107/55; PULSE 91; RESP 16; TEMP 37; O2SAT 96
[2022-06-23 07:59] LABS: Band Neutrophils Percent 4 % (3-5); Blast Percent 2 %; Blastocytes Absolute 0.1 X10*3/uL; Lymphocytes Absolute Manual 1.7 X10*3/uL (1.2-4.9); Lymphocytes Percent Manual 49 % (20-40); Metamyelocytes Absolute 0.3 X10*3/uL; Metamyelocytes Percent 9 %; Monocytes Absolute Manual 0.6 X10*3/uL (0.1-1.2); Monocytes Percent Manual 18 % (2-11); Myelocytes Absolute 0.2 X10*/uL; Myelocytes Percent 5 %; Neutrophils Absolute Manual 0.6 X10*3/uL (2.0-8.3); Neutrophils Percent Manual 13 % (45-73)
[2022-06-23 08:00] LABS: Large Platelet PRESENT; Platelet Estimate DECREASED (NORMAL); Platelet Morphology Comment NOTED
[2022-06-23 08:02] LABS: Burr Cells 2+ (3-5) /OIF; Schistocytes 1+ (0-2) /OIF
[2022-06-23 08:03] LABS: RBC Morphology NOTED
[2022-06-23 08:58] LABS: Platelet Count 117 X10*3/uL (160-400)
[2022-06-23] MEDS: Digoxin 0.25 MG TABLET PO (10:31)
[2022-06-23] MEDS: Carbidopa/Levodopa CR 25/100 TABLET.ER 2 TAB PO ×3 (10:32→21:18)
[2022-06-23] MEDS: Ascorbic Acid 500 MG TABLET PO (10:32)
[2022-06-23] MEDS: Montelukast Sodium 10 MG TABLET PO (10:32)
[2022-06-23] MEDS: rOPINIRole HCL 0.5 MG TABLET 1.5 MG PO ×3 (10:32→21:19)
[2022-06-23] MEDS: Docusate Sodium 100 MG CAPSULE PO ×2 (10:33→21:19)
[2022-06-23] MEDS: 0.9 % Sodium Chloride Flush 3 ML SYRINGE IVFLUSH ×3 (10:33→21:19)
--- NOTE | 2022-06-23 11:10 | PC.NURSE ---
Pt noted to be in a sinus arrhythmia this am.
[2022-06-23] MEDS: levoFLOXacin 750 MG TABLET PO (12:19)
[2022-06-23] MEDS: Digoxin 0.125 MG TABLET PO (12:19)
[2022-06-23 12:22] LABS: Osmolality, Serum 261 mosm/kg (281-305)
--- NOTE | 2022-06-23 13:19 | P.PNIM_ITS ---
Subjective Subjective Date of Service: 06/23/22 Interval History: seen and examined this morning follow up for anemia, pneumonia, UTI sodium trending down to 125 coughing a lot this morning Review of Systems Review of Systems: Yes all other systems are reviewed and are negative Constitutional Constitutional: Denies chills and Denies fever(s) Cardiovascular Cardiovascular: Denies chest pain, Denies palpitations and Denies dyspnea Respiratory Respiratory: Reports cough and Denies dyspnea Gastrointestinal Gastrointestinal: Denies abdominal pain, Denies nausea and Denies vomiting Endocrine Endocrine: Denies palpitations Physical Exam Vital Signs: Vital Signs: Last Vital Signs Temp 98.6 F 06/23/22 07:59 Pulse 91 06/23/22 07:59 Resp 16 06/23/22 07:59 BP 107/55 L 06/23/22 07:59 Pulse Ox 96 06/23/22 07:59 O2 Del Method 06/23/22 07:59 O2 Flow Rate 2 06/21/22 20:21 BMI result Body Mass Index 19.3 Const: Other: coughing frequently General: alert and awake Nutritional Appearance: thin Orientation/consciousness: patient oriented x3 Resp: Other: frequent coughing Effort & Inspection: normal respiratory effort Auscultation: diminished lung sounds Cardio: Rate: regular rate Heart sounds: S1 normal heart sound present and S2 normal heart sound present GI: Inspection: No distended Palpation (GI): Soft to palpation and nontender Neuro: General: patient oriented x3 and CN's II-XI intact bilaterally Extrem: General: Yes no pedal edema Objective Data Active Medications Acetaminophen (Acetaminophen 325 Mg Tablet) 650 mg PO Q6H PRN PRN Reason: Pain, Mild (Pain Scale 1-3) Last Admin: 06/20/22 08:33 Dose: 650 mg Documented By: PATO Ascorbic Acid (Ascorbic Acid 500 Mg Tablet) 500 mg PO DAILY [facility] Last Admin: 06/23/22 10:32 Dose: 500 mg Documented By: JEFFREY Benzonatate (Benzonatate 100 Mg Capsule) 100 mg PO TID PRN PRN Reason: Cough Carbidopa/Levodopa (Carbidopa/Levodopa Cr 25/100 Tablet.Er) 2 tab PO TID [facility] Last Admin: 06/23/22 10:32 Dose: 2 tab Documented By: JEFFREY Digoxin (Digoxin 0.125 Mg Tablet) 0.125 mg PO DAILY [facility] Last Admin: 06/23/22 12:19 Dose: 0.125 mg Documented By: NOAH Docusate Sodium (Docusate Sodium 100 Mg Capsule) 100 mg PO BID [facility] Last Admin: 06/23/22 10:33 Dose: 100 mg Documented By: JEFFREY Enoxaparin Sodium (Enoxaparin Sodium 40 Mg/0.4 Ml Syringe) 40 mg SUBCUT BEDTIME [facility] Last Admin: 06/22/22 20:31 Dose: 40 mg Documented By: SYD Gabapentin (Gabapentin 100 Mg Capsule) 200 mg PO BEDTIME [facility] Last Admin: 06/22/22 20:32 Dose: 200 mg Documented By: SYD Lactulose (Lactulose 20 Gm/30 Ml Solution) 10 gm PO Q24H PRN PRN Reason: Constipation Levofloxacin (Levofloxacin 750 Mg Tablet) 750 mg PO Q24H [facility] Last Admin: 06/23/22 12:19 Dose: 750 mg Documented By: NOAH Levothyroxine Sodium (Levothyroxine Sodium 100 Mcg Tablet) 100 mcg PO DAILY@0600 [facility] Last Admin: 06/23/22 05:30 Dose: 100 mcg Documented By: SYD Melatonin (Melatonin 3 Mg Tablet) 6 mg PO BEDTIME PRN PRN Reason: Insomnia Last Admin: 06/19/22 20:57 Dose: 6 mg Documented By: MIRIAM Melatonin (Melatonin 3 Mg Tablet) 6 mg PO BEDTIME [facility] Last Admin: 06/22/22 20:32 Dose: 6 mg Documented By: SYD Montelukast Sodium (Montelukast Sodium 10 Mg Tablet) 10 mg PO DAILY [facility] Last Admin: 06/23/22 10:32 Dose: 10 mg Documented By: JEFFREY Omeprazole (Omeprazole 20 Mg Capsule.Dr) 20 mg PO DAILY@0630 [facility] Last Admin: 06/23/22 05:30 Dose: 20 mg Documented By: SYD Ondansetron HCl (Ondansetron Hcl 4 Mg/2 Ml Vial) 4 mg IVPUSH Q8H PRN PRN Reason: Nausea and Vomiting Pharmacy Consult (Consult Rx Perform Med Rec) 1 each MISCELLANE ONCE PRN PRN Reason: Consult order Primidone (Primidone 50 Mg Tablet) 100 mg PO BEDTIME [facility] Last Admin: 06/22/22 20:31 Dose: 100 mg Documented By: SYD Ropinirole HCl (Ropinirole Hcl 0.5 Mg Tablet) 1.5 mg PO TID [facility] Last Admin: 06/23/22 10:32 Dose: 1.5 mg Documented By: JEFFREY Senna (Sennosides 8.6 Mg Tablet) 8.6 mg PO BEDTIME [facility] Last Admin: 06/22/22 20:31 Dose: 8.6 mg Documented By: SYD Sodium Chloride (0.9 % Sodium Chloride Flush 3 Ml Syringe) 3 ml IVFLUSH QSHIFT [facility] Last Admin: 06/23/22 10:33 Dose: 3 ml Documented By: JEFFREY Labs CBC & Chem 7: 06/23/22 06:24 06/23/22 06:24 Labs: Laboratory Results - last 24 hr 06/22/22 06/22/22 06/23/22 07:43 09:12 06:24 MCV 89.0 89.1 MCH 29.7 29.8 MCHC 33.3 33.5 RDW 17.5 H 16.3 H Plt Count 137 L 117 L MPV 12.4 H Not Reportable Immature Gran % (Auto) Cancelled Cancelled Neut % (Auto) Cancelled Cancelled Lymph % (Auto) Cancelled Cancelled [place] % (Auto) Cancelled Cancelled Eos % (Auto) Cancelled Cancelled Baso % (Auto) Cancelled Cancelled Lymph # (Auto) Cancelled Cancelled [place] # (Auto) Cancelled Cancelled Eos # (Auto) Cancelled Cancelled Baso # (Auto) Cancelled Cancelled Abs Immat Gran (auto) Cancelled Cancelled Absolute Neuts (auto) Cancelled Cancelled Absolute Nucleated RBC 0.030 H 0.000 Nucleated RBC % (auto) 0.9 H 0.0 Neutrophils % (Manual) 10 L 13 L Band Neutrophils % 5 4 Lymphocytes % (Manual) 45 H 49 H Atypical Lymphs % (Man) 1 Monocytes % (Manual) 33 H 18 H Eosinophils % (Manual) 1 Basophils % (Manual) 1 Metamyelocytes % 1 9 Myelocytes % 2 5 Blast Cells % (Manual) 1 2 Abs Neuts (Manual) 0.5 L 0.6 L Lymphocytes # (Manual) 1.6 1.7 Monocytes # (Manual) 1.2 0.6 Metamyelocytes # 0.3 Myelocytes # 0.1 0.2 Blast Cells # 0.1 Nucleated RBCs 3 H Platelet Estimate DECREASED DECREASED Large Platelets PRESENT Plt Morphology Comment NORMAL NOTED RBC Morphology NOTED NOTED Polychromasia 1+ (0-2) Tear Drop Cells 1+ (0-2) Ovalocytes 1+ (5-14) Manda Cells 1+ (0-2) 2+ (3-5) Schistocytes 1+ (0-2) 1+ (0-2) Anion Gap Estim Creat Clear Calc Estimated GFR Random Glucose Osmolality Calcium Blood Type O Positive Antibody Screen POSITIVE Antibody Identification Inconclusive Crossmatch See Detail Crossmatch ([facility]) See Detail 06/23/22 06/23/22 06:24 06:24 MCV MCH MCHC RDW Plt Count MPV Immature Gran % (Auto) Neut % (Auto) Lymph % (Auto) [place] % (Auto) Eos % (Auto) Baso % (Auto) Lymph # (Auto) [place] # (Auto) Eos # (Auto) Baso # (Auto) Abs Immat Gran (auto) Absolute Neuts (auto) Absolute Nucleated RBC Nucleated RBC % (auto) Neutrophils % (Manual) Band Neutrophils % Lymphocytes % (Manual) Atypical Lymphs % (Man) Monocytes % (Manual) Eosinophils % (Manual) Basophils % (Manual) Metamyelocytes % Myelocytes % Blast Cells % (Manual) Abs Neuts (Manual) Lymphocytes # (Manual) Monocytes # (Manual) Metamyelocytes # Myelocytes # Blast Cells # Nucleated RBCs Platelet Estimate Large Platelets Plt Morphology Comment RBC Morphology Polychromasia Tear Drop Cells Ovalocytes [place] Cells Schistocytes Anion Gap 15 Estim Creat Clear Calc 51.7 Estimated GFR > 60 Random Glucose 73 Osmolality 261 L Calcium 7.1 L Blood Type Antibody Screen Antibody Identification Crossmatch Crossmatch ([facility]) Assessment and Plan (1) Hyponatremia: Status: Acute (2) UTI (urinary tract infection): Status: Acute Plan This is a 87-year-old female resident of group home with pertinent history of atrial fibrillation, essential tremor, Parkinson's disease, hypothyroidism was sent from group home for evaluation of left-sided chest discomfort. #.? 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 s/p 2U RBC? s/p Heme-Onc following. Transfuse if hemoglobin under 7 #. Hyponatremia sodium down to 125 today received IVF yesterday will check urine studies nephrology consult #.? Acute hypoxemic respiratory failure secondary to: Left-sided community- acquired pneumonia no sepsis. blood cultures negative -Resolved, patient now maintaining normal O2 saturation at room air. -IV Abx transitioned to oral levaquin. Antibiotic stop date? 06/24 #.? Acute UTI Urine culture with pansensitive E coli. continue levaquin -Abx stop date 06/24 #.? Paroxysmal atrial fibrillation -Not on anticoagulation due to anemia Amiodarone discontinued, started on digoxin #. Significant -Consulted cardiology - recommend conservative management outpatient follow up #.? Chest pain, musculoskeletal in origin -conservative management with p.o. analgesics p.r.n. #.? Generalized weakness -likely in the setting of anemia + infection. #.? Parkinson's disease -continue home medications #.? Hypothyroidism -continue Synthroid. Elevated TSH. T4 normal #.? COPD -continue home inhalers DVT prophylaxis:? Lovenox 40 mg daily Regular diet Do not intubate.? Discussed with patient at bedside and she stated that she would like to be resuscitated but not intubated. attending - dr hill Patient requires ongoing inpatient hospitalization for management of hyponatremia, UTI, pneumonia Quality Stroke Does the patient have a stroke diagnosis?: No VTE Prior VTE?: No VTE Risk Level:: Medical - moderate - high VTE Device Contraindication: Treatment Not Indicated VTE Drug Contraindication: N/A - Med Ordered
--- NOTE | 2022-06-23 14:22 | MHC.CLN ---
F/U CONSULT FOR REPORTS VERY POOR APPETITE . DIET=REGULAR. SUPPLEMENT ENSURE BID PROVIDES ADDITIONAL 700 KCALS, 40 G PROTEIN. PATIENT STATED THAT SHE LIKES ENSURE SUPPLEMENT. CONTINUE BID. REVIEW OF INTAKE SHOWS INTAKE 50-75% X 6 MEALS. PATIENT REPORTS THAT SHE IS EATING BETTER. SKIN: SUSAN=13, NO OPEN AREAS. NO ADDITIONAL NUTRITION INTERVENTIONS AT THIS TIME.
--- NOTE | 2022-06-23 14:42 | PM.CNNEP ---
History of Present Illness Reason for Consult Consult date: 06/23/22 Reason for consult: hyponatremia Requesting physician: Portia Velasquez Chief Complaint Chief complaint: Rib Pain History of Present Illness Narrative: Ms. Ximena Cheng is an 87-year-old female with past medical history of myelodysplastic syndrome, Afib, ALTAGRACIA, GERD, COPD, chronic mild hyponatremia (NA 131-132meq/L), who presented for left-sided chest discomfort. She was found to have acute on chronic anemia requiring 2u PRBC. She was found to have Aortic stenosis being managed conservatively. She was also dosed isotonic crystalloid on 06/22 with serum Na going from 129meq/L --> 125meq/L. Lastly, she is on levoquin for UTI sepsis. Review of Systems Review of Systems All other systems are reviewed and are negative Constitutional: Reports as per HPI and Reports no additional constitutional complaints Eyes: Reports as per HPI and Reports no additional eye complaints Reports system reviewed and no additional complaints, except as documented Cardiovascular: Reports as per HPI and Reports no additional cardiovascular complaints Respiratory: Reports as per HPI and Reports no additional respiratory complaints Gastrointestinal: Reports as per HPI and Reports no additional gastrointestinal complaints Genitourinary: Reports no additional female genitourinary complaints Musculoskeletal: Reports no additional musculoskeletal complaints Skin/Breast: Reports system reviewed and no additional complaints, except as docu Psychiatric: Reports no additional psychiatric complaints Endocrine: Reports no additional endocrine complaints Hematologic/Lymphatic: Reports no additional hematologic/lymphatic complaints Allergic/Immunologic: Reports no additional allergic/immunologic complaints Reports system reviewed and no additional complaints, except as documented and Reports Abnormal speech present [facility] Past Medical History Medical History Abnormal brain MRI Essential tremor (~06/19/22) Obstructive sleep apnea Parkinson's disease Functional capacity: uses cane/walker Family History Family History Mother Alzheimer's dementia Diverticulitis Father Cancer Pertinent family history: Patient denies any significant cardiac history in the family. Surgical History Surgical History Hx of cholecystectomy Hx of total knee replacement Social History Social History Household Members: Other Housing: Senior Care Do you presently have visiting nurse or other home services: No Alcohol intake: never Patient Tobacco Use Status: Former Tobacco user Quit Date: 1991 Smoked in Last 30 Days: No Use of substances other than those prescribed or required for medical reasons: No Currently Displaying Signs/Symptoms of Drug Intoxication Withdrawal: No Have you been hit, kicked, punched, or otherwise hurt by someone within the past year? If so, by whom?: No Do you feel safe in your current relationship?: Yes Is there a partner from a previous relationship who is making you feel unsafe now?: No Are you made to feel afraid or neglected: No Spiritism Healthcare Practices: Dominick Advance Directives: No Do you have thoughts of harming others: None Do you have a plan to hurt others: No Plan Recently lost weight without trying: Yes How much weight loss: 14-23 pounds Eating poorly because of decreased appetite: Yes Nutrition screen score: 5 Nutrition Risks: No Nutritional Risk Patient : No Poor oral hygiene: No Meds Allergies Allergy/AdvReac Type Severity Reaction Status Date / Time vancomycin Allergy Mild unknown Verified 06/20/22 13:07 Active Medications: Current Medications Acetaminophen (Acetaminophen 325 Mg Tablet) 650 mg PO Q6H PRN PRN Reason: Pain, Mild (Pain Scale 1-3) Last Admin: 06/20/22 08:33 Dose: 650 mg Ascorbic Acid (Ascorbic Acid 500 Mg Tablet) 500 mg PO DAILY [facility] Last Admin: 06/23/22 10:32 Dose: 500 mg Benzonatate (Benzonatate 100 Mg Capsule) 100 mg PO TID PRN PRN Reason: Cough Carbidopa/Levodopa (Carbidopa/Levodopa Cr 25/100 Tablet.Er) 2 tab PO TID [facility] Last Admin: 06/23/22 10:32 Dose: 2 tab Digoxin (Digoxin 0.125 Mg Tablet) 0.125 mg PO DAILY [facility] Last Admin: 06/23/22 12:19 Dose: 0.125 mg Docusate Sodium (Docusate Sodium 100 Mg Capsule) 100 mg PO BID [facility] Last Admin: 06/23/22 10:33 Dose: 100 mg Enoxaparin Sodium (Enoxaparin Sodium 40 Mg/0.4 Ml Syringe) 40 mg SUBCUT BEDTIME [facility] Last Admin: 06/22/22 20:31 Dose: 40 mg Gabapentin (Gabapentin 100 Mg Capsule) 200 mg PO BEDTIME [facility] Last Admin: 06/22/22 20:32 Dose: 200 mg Lactulose (Lactulose 20 Gm/30 Ml Solution) 10 gm PO Q24H PRN PRN Reason: Constipation Levofloxacin (Levofloxacin 750 Mg Tablet) 750 mg PO Q24H [facility] Last Admin: 06/23/22 12:19 Dose: 750 mg Levothyroxine Sodium (Levothyroxine Sodium 100 Mcg Tablet) 100 mcg PO DAILY@0600 [facility] Last Admin: 06/23/22 05:30 Dose: 100 mcg Melatonin (Melatonin 3 Mg Tablet) 6 mg PO BEDTIME PRN PRN Reason: Insomnia Last Admin: 06/19/22 20:57 Dose: 6 mg Melatonin (Melatonin 3 Mg Tablet) 6 mg PO BEDTIME [facility] Last Admin: 06/22/22 20:32 Dose: 6 mg Midodrine (Midodrine Hcl 5 Mg Tablet) 5 mg PO TID@0800,1200,1700 [facility] Montelukast Sodium (Montelukast Sodium 10 Mg Tablet) 10 mg PO DAILY [facility] Last Admin: 06/23/22 10:32 Dose: 10 mg Omeprazole (Omeprazole 20 Mg Capsule.Dr) 20 mg PO DAILY@0630 [facility] Last Admin: 06/23/22 05:30 Dose: 20 mg Ondansetron HCl (Ondansetron Hcl 4 Mg/2 Ml Vial) 4 mg IVPUSH Q8H PRN PRN Reason: Nausea and Vomiting Pharmacy Consult (Consult Rx Perform Med Rec) 1 each MISCELLANE ONCE PRN PRN Reason: Consult order Primidone (Primidone 50 Mg Tablet) 100 mg PO BEDTIME [facility] Last Admin: 06/22/22 20:31 Dose: 100 mg Ropinirole HCl (Ropinirole Hcl 0.5 Mg Tablet) 1.5 mg PO TID [facility] Last Admin: 06/23/22 10:32 Dose: 1.5 mg Senna (Sennosides 8.6 Mg Tablet) 8.6 mg PO BEDTIME [facility] Last Admin: 06/22/22 20:31 Dose: 8.6 mg Sodium Chloride (0.9 % Sodium Chloride Flush 3 Ml Syringe) 3 ml IVFLUSH QSHIFT [facility] Last Admin: 06/23/22 10:33 Dose: 3 ml Home Medications Medication Instructions Recorded Confirmed Last Taken Type primidone 50 mg tablet 100 mg PO BEDTIME 11/02/21 06/19/22 Unknown History amiodarone 200 mg tablet 400 mg PO DAILY 04/19/22 06/19/22 Unknown History gabapentin 100 mg capsule 200 mg PO BEDTIME 04/19/22 06/19/22 Unknown History lactulose 10 gram/15 mL oral 15 ml PO Q24H PRN Constipation 04/19/22 06/19/22 Unknown History solution lidocaine 5 % topical patch 1 patch topical DAILY 04/19/22 06/19/22 Unknown History montelukast 10 mg tablet 10 mg PO DAILY 04/19/22 06/19/22 Unknown History omeprazole 20 mg capsule,delayed 20 mg PO DAILY 04/19/22 06/19/22 Unknown History release ondansetron 4 mg disintegrating 4 mg PO Q8H PRN Nausea 04/19/22 06/19/22 Unknown History tablet ropinirole 3 mg tablet 1.5 mg PO TID 04/19/22 06/19/22 Unknown History sennosides 8.6 mg capsule (senna) 8.6 mg PO BEDTIME 04/19/22 06/19/22 Unknown History Saccharomyces boulardii 1 cap PO BID 06/19/22 06/19/22 Unknown History acetaminophen 325 mg tablet 975 mg PO Q8H 06/19/22 06/19/22 Unknown History ascorbic acid (vitamin C) 500 mg 500 mg PO DAILY 06/19/22 06/19/22 Unknown History tablet carbidopa ER 23.75 mg-levodopa 95 2 cap PO TID 06/19/22 06/19/22 Unknown History mg capsule,extended release (Rytary) carboxymethylcellulose sodium 1 % 1 drp ophthalmic (eye) BID 06/19/22 06/19/22 Unknown History eye drops carboxymethylcellulose sodium 1 % 1 drp ophthalmic (eye) Q12H PRN 06/19/22 06/19/22 Unknown History eye drops Dry Eye(S) docusate sodium 100 mg capsule 100 mg PO BID 06/19/22 06/19/22 Unknown History hydrocortisone 1 % topical cream 1 appl topical Q24H PRN Rash 06/19/22 06/19/22 Unknown History levothyroxine 100 mcg tablet 100 mcg PO DAILY 06/19/22 06/19/22 Unknown History melatonin 5 mg tablet 5 mg PO BEDTIME 06/19/22 06/19/22 Unknown History menthol 0.44 %-zinc oxide 20.6 % 1 appl topical BID 06/19/22 06/19/22 Unknown History topical ointment (Calmoseptine) midodrine 5 mg tablet 5 mg PO TID 06/19/22 06/19/22 Unknown History sennosides 8.6 mg tablet (senna) 17.2 mg PO Q24H PRN Constipation 06/19/22 06/19/22 Unknown History umeclidinium 62.5 mcg-vilanterol 1 inh inhalation DAILY 06/19/22 06/19/22 Unknown History 25 mcg/actuation powdr for inhalation (Anoro Ellipta) Physical Exam Vital Signs: Last Vital Signs Temp 98.6 F 06/23/22 07:59 Pulse 91 06/23/22 07:59 Resp 16 06/23/22 07:59 BP 107/55 L 06/23/22 07:59 Pulse Ox 96 06/23/22 07:59 O2 Del Method 06/23/22 07:59 O2 Flow Rate 2 06/21/22 20:21 BMI result Body Mass Index 19.3 Const General: comfortable, no acute distress, alert and awake Resp Effort & Inspection: normal respiratory effort Auscultation: clear to auscultation bilaterally Cardio Heart sounds: Murmur heart sound present systolic II/ and at the right sternal border and no rubs GI Inspection: No distended Palpation (GI): Soft to palpation and nontender Skin General skin exam: no rashes or lesions noted Neuro General: CN's II-XI intact bilaterally Extrem General: Yes normal to inspection and Yes no pedal edema Results Lab Results Result Diagrams: 06/23/22 06:24 06/23/22 14:07 Lab results: Chemistry 06/21/22 06/22/22 06/22/22 08:21 06:18 07:43 Sodium 129 L 127 L 128 L Potassium 4.0 4.7 4.0 Carbon Dioxide 19 L 16 L 22 BUN 12 13 13 Creatinine 0.65 0.73 0.69 Calcium 7.4 L 7.4 L 7.4 L 06/23/22 06:24 Sodium 125 L Potassium 4.1 Carbon Dioxide 19 L BUN 14 Creatinine 0.68 Calcium 7.1 L Hematology 11/10/1106/22/22 06/23/22 08:21 07:43 06:24 WBC 3.6 L 3.5 L 3.5 L Hgb 7.1 L 6.2 L* 7.1 L Plt Count 141 L 137 L 117 L Assessment and Plan (1) Hyponatremia: Status: Acute Plan Ms. Ximena Cheng is an 87-year-old female with past medical history of myelodysplastic syndrome, Afib, ALTAGRACIA, GERD, COPD, chronic mild hyponatremia (NA 131-132meq/L), who presented for left-sided chest discomfort. She was found to have acute on chronic anemia requiring 2u PRBC. She was found to have Aortic stenosis being managed conservatively. She was also dosed isotonic crystalloid on 06/22 with serum Na going from 129meq/L --> 125meq/L. 1. Hypoosmolar Euvolemic Hyponatremia History of hyponatremia 131meq/L Now down to 125meq/L especially after isotonic IVF The patient tells me her appetite is poor and it looks like she takes in excess HYPOtonic intake. She usually drinks 1 ensure a day, which she has not gotten here. 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 Plan: - urea 30g BID for now - Mary Ellen and Uosm should be checked - avoid IVF support - electrolytes BID Procedures Date of Service Date of Service: 06/23/22
[2022-06-23 14:58] LABS: Anion Gap 17 (12-20); Blood Urea Nitrogen 16 mg/dL (9-16); Calcium 7.2 mg/dL (8.4-10.2); Carbon Dioxide 16 mmol/L (22-29); Chloride 98 mmol/L (96-108); Creatinine Clr Calc Pharmacy 51.7; Estimated Glomerular Filt Rate > 60; Glucose Random 104 mg/dL (60-115); Potassium 4.5 mmol/L (3.3-5.1); Sodium 126 mmol/L (135-145)
--- NOTE | 2022-06-23 15:29 | MHC.CM.PN ---
EMR REVIEWED, PER HOSPITALIST PT CONT'S TO NEED IV DIURESIS, NO PLAN FOR D/C, PT WILL RETURN TO LTC AT [facility] ONCE MEDICALLY CLEARED, CM WILL CONT TO FOLLOW.
[2022-06-23] MEDS: Urea 15 GM POWDER 30 GM PO ×2 (15:31→21:16)
[2022-06-23 15:54] VITALS: BP 134/63; PULSE 89; RESP 18; TEMP 37.3; O2SAT 97
[2022-06-23] MEDS: Midodrine HCl 5 MG TABLET PO (17:51)
[2022-06-23 19:03] LABS: Osmolality Urine 503 mosm/kg (373-1093)
[2022-06-23 21:12] VITALS: BP 132/64; PULSE 105; RESP 16; TEMP 36.9; O2SAT 97
[2022-06-23] MEDS: Melatonin 3 MG TABLET 6 MG PO (21:18)
[2022-06-23] MEDS: Primidone 50 MG TABLET 100 MG PO (21:18)
[2022-06-23] MEDS: Benzonatate 100 MG CAPSULE PO (21:18)
[2022-06-23] MEDS: Enoxaparin Sodium 40 MG/0.4 ML SYRINGE SUBCUT (21:18)
[2022-06-23] MEDS: Sennosides 8.6 MG TABLET PO (21:18)
[2022-06-23] MEDS: Gabapentin 100 MG CAPSULE 200 MG PO (21:19)
[2022-06-23 22:33] LABS: Sodium 126 mmol/L (135-145)
[2022-06-23 23:46] VITALS: BP 93/51; PULSE 97; RESP 16; TEMP 36; O2SAT 94
[2022-06-24] VITALS (10 sets, daily range): BP systolic 101–127; BP diastolic 47–57; PULSE 66–101; RESP 16–20; TEMP 36.2–37.2; O2SAT 94–99
[2022-06-24] MEDS: Levothyroxine Sodium 100 MCG TABLET PO (05:27)
[2022-06-24] MEDS: Omeprazole 20 MG CAPSULE.DR PO (05:27)
[2022-06-24 06:29] LABS: Mean Corpuscular HGB Conc 33.7 g/dl (31.0-35.0); Mean Corpuscular Hemoglobin 29.7 pg (27.0-33.0); Mean Corpuscular Volume 88.4 fL (80.0-98.0); Mean Platelet Volume 12.2 fL (9.4-12.3); Platelet Count 114 X10*3/uL (160-400); Red Blood Count 2.32 X10*6/uL (4.20-5.50); Red Cell Distribution Width 16.2 % (11.0-16.0)
[2022-06-24 06:36] LABS: WBC ABN SCTR FOR CBC 1
[2022-06-24 06:37] LABS: White Blood Count 3.6 X10*3/uL (4.8-10.8)
[2022-06-24 06:39] LABS: Hemoglobin 6.9 g/dl (12.0-16.0)
[2022-06-24 06:40] LABS: Hematocrit 20.5 % (37.0-47.0)
--- NOTE | 2022-06-24 06:42 | PC.NURSE ---
LAb called for a critical Hg/Hct= 6.9 /20.5, Dr. Wall was made aware.
[2022-06-24 06:44] LABS: Anion Gap 12 (12-20); Blood Urea Nitrogen 46 mg/dL (9-16); Calcium 7.2 mg/dL (8.4-10.2); Carbon Dioxide 21 mmol/L (22-29); Chloride 97 mmol/L (96-108); Creatinine Clr Calc Pharmacy 50.2; Estimated Glomerular Filt Rate > 60; Glucose Random 79 mg/dL (60-115); Potassium 4.2 mmol/L (3.3-5.1); Sodium 126 mmol/L (135-145)
[2022-06-24] MEDS: 0.9 % Sodium Chloride Flush 3 ML SYRINGE IVFLUSH ×3 (08:39→21:17)
[2022-06-24] MEDS: Docusate Sodium 100 MG CAPSULE PO (08:39)
[2022-06-24] MEDS: Montelukast Sodium 10 MG TABLET PO (08:39)
[2022-06-24] MEDS: Midodrine HCl 5 MG TABLET PO ×3 (08:39→15:15)
[2022-06-24] MEDS: Digoxin 0.125 MG TABLET PO (08:39)
[2022-06-24] MEDS: Carbidopa/Levodopa CR 25/100 TABLET.ER 2 TAB PO ×3 (08:39→21:17)
[2022-06-24] MEDS: Urea 15 GM POWDER 30 GM PO ×2 (08:39→21:16)
[2022-06-24] MEDS: Ascorbic Acid 500 MG TABLET PO (08:39)
[2022-06-24] MEDS: rOPINIRole HCL 0.5 MG TABLET 1.5 MG PO ×3 (08:43→21:16)
--- NOTE | 2022-06-24 09:54 | HO.PM.IMPN ---
Subjective Subjective Date of Service: 06/24/22 Interval History: seen and examined this morning follow up for anemia, pneumonia, UTI still with dry cough; denies shortness of breath, fever or chills Review of Systems Review of Systems: Yes all other systems are reviewed and are negative Constitutional Constitutional: Denies chills and Denies fever(s) ENT Ears, Nose, Mouth, and Throat: Denies dizziness Cardiovascular Cardiovascular: Denies chest pain, Denies palpitations and Denies dyspnea Respiratory Respiratory: Reports cough and Denies dyspnea Gastrointestinal Gastrointestinal: Denies abdominal pain, Denies nausea and Denies vomiting Neurologic Neurologic: Denies dizziness Endocrine Endocrine: Denies palpitations Physical Exam Vital Signs: Vital Signs: Last Vital Signs Temp 97.1 F 06/24/22 07:47 Pulse 74 06/24/22 07:47 Resp 18 06/24/22 07:47 BP 103/47 L 06/24/22 07:47 Pulse Ox 96 06/24/22 07:47 O2 Del Method 06/24/22 07:47 O2 Flow Rate 2 06/21/22 20:21 BMI result Body Mass Index 19.3 Const: General: alert and awake Nutritional Appearance: thin Orientation/consciousness: patient oriented x3 Resp: Effort & Inspection: normal respiratory effort Auscultation: diminished lung sounds Cardio: Rate: regular rate Heart sounds: S1 normal heart sound present and S2 normal heart sound present GI: Inspection: No distended Palpation (GI): Soft to palpation and nontender Neuro: General: patient oriented x3 and CN's II-XI intact bilaterally Extrem: General: Yes no pedal edema Objective Data Active Medications Acetaminophen (Acetaminophen 325 Mg Tablet) 650 mg PO Q6H PRN PRN Reason: Pain, Mild (Pain Scale 1-3) Last Admin: 06/20/22 08:33 Dose: 650 mg Documented By: PATO Ascorbic Acid (Ascorbic Acid 500 Mg Tablet) 500 mg PO DAILY [facility] Last Admin: 06/24/22 08:39 Dose: 500 mg Documented By: CHANA Benzonatate (Benzonatate 100 Mg Capsule) 100 mg PO TID PRN PRN Reason: Cough Last Admin: 06/23/22 21:18 Dose: 100 mg Documented By: ALEJANDRA Carbidopa/Levodopa (Carbidopa/Levodopa Cr 25/100 Tablet.Er) 2 tab PO TID [facility] Last Admin: 06/24/22 08:39 Dose: 2 tab Documented By: CHANA Digoxin (Digoxin 0.125 Mg Tablet) 0.125 mg PO DAILY [facility] Last Admin: 06/24/22 08:39 Dose: 0.125 mg Documented By: CHANA Docusate Sodium (Docusate Sodium 100 Mg Capsule) 100 mg PO BID [facility] Last Admin: 06/24/22 08:39 Dose: 100 mg Documented By: CHANA Enoxaparin Sodium (Enoxaparin Sodium 40 Mg/0.4 Ml Syringe) 40 mg SUBCUT BEDTIME [facility] Last Admin: 06/23/22 21:18 Dose: 40 mg Documented By: ALEJANDRA Gabapentin (Gabapentin 100 Mg Capsule) 200 mg PO BEDTIME [facility] Last Admin: 06/23/22 21:19 Dose: 200 mg Documented By: ALEJANDRA Lactulose (Lactulose 20 Gm/30 Ml Solution) 10 gm PO Q24H PRN PRN Reason: Constipation Levofloxacin (Levofloxacin 750 Mg Tablet) 750 mg PO Q24H [facility] Last Admin: 06/23/22 12:19 Dose: 750 mg Documented By: NOAH Levothyroxine Sodium (Levothyroxine Sodium 100 Mcg Tablet) 100 mcg PO DAILY@0600 [facility] Last Admin: 06/24/22 05:27 Dose: 100 mcg Documented By: ALEJANDRA Melatonin (Melatonin 3 Mg Tablet) 6 mg PO BEDTIME PRN PRN Reason: Insomnia Last Admin: 06/19/22 20:57 Dose: 6 mg Documented By: MIRIAM Melatonin (Melatonin 3 Mg Tablet) 6 mg PO BEDTIME [facility] Last Admin: 06/23/22 21:18 Dose: 6 mg Documented By: ALEJANDRA Midodrine (Midodrine Hcl 5 Mg Tablet) 5 mg PO TID@0800,1200,1700 [facility] Last Admin: 06/24/22 08:39 Dose: 5 mg Documented By: CHANA Montelukast Sodium (Montelukast Sodium 10 Mg Tablet) 10 mg PO DAILY [facility] Last Admin: 06/24/22 08:39 Dose: 10 mg Documented By: CHANA Omeprazole (Omeprazole 20 Mg Good.) 20 mg PO DAILY@0630 [facility] Last Admin: 06/24/22 05:27 Dose: 20 mg Documented By: ALEJANDRA Ondansetron HCl (Ondansetron Hcl 4 Mg/2 Ml Vial) 4 mg IVPUSH Q8H PRN PRN Reason: Nausea and Vomiting Pharmacy Consult (Consult Rx Perform Med Rec) 1 each MISCELLANE ONCE PRN PRN Reason: Consult order Primidone (Primidone 50 Mg Tablet) 100 mg PO BEDTIME [facility] Last Admin: 06/23/22 21:18 Dose: 100 mg Documented By: ALEJANDRA Ropinirole HCl (Ropinirole Hcl 0.5 Mg Tablet) 1.5 mg PO TID [facility] Last Admin: 06/24/22 08:43 Dose: 1.5 mg Documented By: CHANA Senna (Sennosides 8.6 Mg Tablet) 8.6 mg PO BEDTIME [facility] Last Admin: 06/23/22 21:18 Dose: 8.6 mg Documented By: ALEJANDRA Sodium Chloride (0.9 % Sodium Chloride Flush 3 Ml Syringe) 3 ml IVFLUSH QSHIFT [facility] Last Admin: 06/24/22 08:39 Dose: 3 ml Documented By: CHANA Urea (Urea 15 Gm Powder) 30 gm PO BID [facility] Last Admin: 06/24/22 08:39 Dose: 30 gm Documented By: CHANA Labs CBC & Chem 7: 06/24/22 05:55 06/24/22 05:55 Labs: Laboratory Results - last 24 hr 06/22/22 06/23/22 06/23/22 09:12 06:24 14:07 MCV MCH MCHC RDW Plt Count MPV Absolute Nucleated RBC Nucleated RBC % (auto) Anion Gap 17 Estim Creat Clear Calc 51.7 Estimated GFR > 60 Random Glucose 104 Osmolality 261 L Calcium 7.2 L Urine Osmolality Ur Random Sodium Blood Type O Positive Antibody Screen POSITIVE Antibody Identification Inconclusive Crossmatch See Detail Crossmatch (AHG) See Detail 06/23/22 06/23/22 06/24/22 16:56 16:56 05:55 MCV MCH MCHC RDW Plt Count MPV Absolute Nucleated RBC Nucleated RBC % (auto) Anion Gap 12 Estim Creat Clear Calc 50.2 Estimated GFR > 60 Random Glucose 79 Osmolality Calcium 7.2 L Urine Osmolality 503 Ur Random Sodium 80.0 Blood Type Antibody Screen Antibody Identification Crossmatch Crossmatch (AHG) 06/24/22 05:55 MCV 88.4 MCH 29.7 MCHC 33.7 RDW 16.2 H Plt Count 114 L MPV 12.2 Absolute Nucleated RBC 0.000 Nucleated RBC % (auto) 0.0 Anion Gap Estim Creat Clear Calc Estimated GFR Random Glucose Osmolality Calcium Urine Osmolality Ur Random Sodium Blood Type Antibody Screen Antibody Identification Crossmatch Crossmatch ([facility]) Microbiology Microbiology Results: Microbiology 06/19/22 01:25 Blood Culture - Final Blood - Venous No growth after 5 days. 06/19/22 01:25 Blood Culture - Final Blood - Venous No growth after 5 days. Assessment and Plan (1) UTI (urinary tract infection): Status: Acute (2) Pneumonia: Status: Acute (3) Hyponatremia: Status: Acute Plan This is a 87-year-old female resident of skilled nursing with pertinent history of atrial fibrillation, essential tremor, Parkinson's disease, hypothyroidism was sent from skilled nursing for evaluation of left-sided chest discomfort. 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 s/p 2U RBC. H/H drifting down, will transfuse another unit today ? s/p Heme-Onc consult Transfuse if hemoglobin under 7 Hyponatremia sodium 126 seen by nephcally vance appreciated started on urea Acute hypoxemic respiratory failure secondary to: Left-sided community-acquired pneumonia no sepsis. blood cultures negative now maintaining normal O2 saturation at room air IV Abx transitioned to oral levaquin. Antibiotic stop date 06/24 Acute UTI Urine culture with pansensitive E coli. continue levaquin -Abx stop date 06/24 Paroxysmal atrial fibrillation HR controlled Not on anticoagulation due to anemia Amiodarone discontinued, started on digoxin Significant seen by cardiology - recommend conservative management outpatient follow up Chest pain, musculoskeletal in origin -conservative management with p.o. analgesics p.r.n. Generalized weakness -likely in the setting of anemia + infection. Parkinson's disease -continue home medications Hypothyroidism -continue Synthroid. Elevated TSH. T4 normal COPD -continue home inhalers DVT prophylaxis:? Lovenox 40 mg daily Regular diet Do not intubate.? Discussed with patient at bedside and she stated that she would like to be resuscitated but not intubated. attending - dr? mlapah Patient requires ongoing inpatient hospitalization for management of hyponatremia, UTI, pneumonia Quality Stroke Does the patient have a stroke diagnosis?: No VTE Prior VTE?: No VTE Risk Level:: Medical - moderate - high VTE Device Contraindication: Treatment Not Indicated VTE Drug Contraindication: N/A - Med Ordered
[2022-06-24] MEDS: levoFLOXacin 750 MG TABLET PO (12:17)
--- NOTE | 2022-06-24 13:23 | PC.NURSE ---
Patient awake alert, answering questions appropriately. 1 unit RBC's infusing at this time and will get additional unit. Patient has good PO intake. Incontinent of urine, purewick in place, Moist red areas noted around christi-area, barrier cream applied. Heels elevated on pillow and repositioned throughout the shift.
[2022-06-24 16:48] LABS: Anion Gap 15 (12-20); Blood Urea Nitrogen 80 mg/dL (9-16); Calcium 7.4 mg/dL (8.4-10.2); Carbon Dioxide 18 mmol/L (22-29); Chloride 99 mmol/L (96-108); Creatinine Clr Calc Pharmacy 42.8; Estimated Glomerular Filt Rate > 60; Glucose Random 102 mg/dL (60-115); Potassium 4.4 mmol/L (3.3-5.1); Sodium 128 mmol/L (135-145)
--- NOTE | 2022-06-24 17:24 | PM.PNNEP ---
Subjective Subjective Date of Service: 06/24/22 Interval history: no longer NPO urea started Na rising Uosm >500 Physical Exam Vital Signs: Vital Signs: Last Vital Signs Temp 98.7 F 06/24/22 15:37 Pulse 67 06/24/22 15:37 Resp 18 06/24/22 15:37 BP 127/54 L 06/24/22 15:37 Pulse Ox 99 06/24/22 15:37 O2 Del Method 06/24/22 15:37 O2 Flow Rate 2 06/21/22 20:21 BMI result Body Mass Index 19.3 Const: General: comfortable, no acute distress, alert and awake Resp: Effort & Inspection: normal respiratory effort Auscultation: clear to auscultation bilaterally Cardio: Heart sounds: Murmur heart sound present systolic II/ and at the right sternal border and no rubs GI: Inspection: No distended Palpation (GI): Soft to palpation and nontender Skin: General skin exam: no rashes or lesions noted Neuro: General: CN's II-XI intact bilaterally Extrem: General: Yes normal to inspection and Yes no pedal edema Objective Data Labs CBC & Chem 7: 06/24/22 05:55 06/24/22 16:13 Labs: Laboratory Results - last 24 hr 06/22/22 06/23/22 06/23/22 09:12 16:56 16:56 WBC RBC Hgb Hct MCV MCH MCHC RDW Plt Count MPV Absolute Nucleated RBC Nucleated RBC % (auto) Sodium Potassium Chloride Carbon Dioxide Anion Gap BUN Creatinine Estim Creat Clear Calc Estimated GFR Random Glucose Calcium Urine Osmolality 503 Ur Random Sodium 80.0 Blood Type O Positive Antibody Screen POSITIVE Antibody Identification Inconclusive Crossmatch See Detail Crossmatch (AHG) See Detail 06/23/22 06/24/22 06/24/22 21:55 05:55 05:55 WBC 3.6 L RBC 2.32 L Hgb 6.9 L* Hct 20.5 L* MCV 88.4 MCH 29.7 MCHC 33.7 RDW 16.2 H Plt Count 114 L MPV 12.2 Absolute Nucleated RBC 0.000 Nucleated RBC % (auto) 0.0 Sodium 126 L 126 L Potassium 4.2 Chloride 97 Carbon Dioxide 21 L Anion Gap 12 BUN 46 H D Creatinine 0.70 Estim Creat Clear Calc 50.2 Estimated GFR > 60 Random Glucose 79 Calcium 7.2 L Urine Osmolality Ur Random Sodium Blood Type Antibody Screen Antibody Identification Crossmatch Crossmatch (AHG) 06/24/22 16:13 WBC RBC Hgb Hct MCV MCH MCHC RDW Plt Count MPV Absolute Nucleated RBC Nucleated RBC % (auto) Sodium 128 L Potassium 4.4 Chloride 99 Carbon Dioxide 18 L Anion Gap 15 BUN 80 H D Creatinine 0.82 Estim Creat Clear Calc 42.8 Estimated GFR > 60 Random Glucose 102 Calcium 7.4 L Urine Osmolality Ur Random Sodium Blood Type Antibody Screen Antibody Identification Crossmatch Crossmatch ([facility]) Microbiology Microbiology Results: Microbiology 06/19/22 01:25 Blood - Venous Blood Culture - Final No growth after 5 days. 06/19/22 01:25 Blood - Venous Blood Culture - Final No growth after 5 days. 06/19/22 07:40 Urine clean catch - Urine crews top Urine Culture - Final Escherichia coli Procedures Date of Service Date of Service: 06/24/22 Assessment & Plan Assessment and plan (1) Hyponatremia: Status: Acute Plan Ms. Ximena Cheng is an 87-year-old female with past medical history of myelodysplastic syndrome, Afib, ALTAGRACIA, GERD, COPD, chronic mild hyponatremia (NA 131-132meq/L), who presented for left-sided chest discomfort. She was found to have acute on chronic anemia requiring 2u PRBC. She was found to have Aortic stenosis being managed conservatively. She was also dosed isotonic crystalloid on 06/22 with serum Na going from 129meq/L --> 125meq/L. 1. Hypoosmolar Euvolemic Hyponatremia History of hyponatremia 131meq/L Now down to 125meq/L especially after isotonic IVF The patient tells me her appetite is poor and it looks like she takes in excess HYPOtonic intake. She usually drinks 1 ensure a day, which she has not gotten here. 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 Plan: - urea 30g BID for now - Mary Ellen and Uosm should be checked - avoid IVF support - electrolytes BID Time Spent With Patient Time: Total time spent is greater than 50% in coordination of care (as documented) at patient's floor/unit and/or counseling patient: Progress Note: Quality Stroke Does the patient have a stroke diagnosis?: No
--- NOTE | 2022-06-24 20:14 | PM.EVENT ---
Event Note Date of Service: 06/24/22 Event Note: pt noted by nurse to be choking after drinking ensure and developing wheezing. Oxygenating well. will consult speech for swallow eval
[2022-06-24] MEDS: Enoxaparin Sodium 40 MG/0.4 ML SYRINGE SUBCUT (21:15)
[2022-06-24] MEDS: Primidone 50 MG TABLET 100 MG PO (21:16)
[2022-06-24] MEDS: Sennosides 8.6 MG TABLET PO (21:16)
[2022-06-24] MEDS: Benzonatate 100 MG CAPSULE PO (21:16)
[2022-06-24] MEDS: Melatonin 3 MG TABLET 6 MG PO (21:16)
[2022-06-24] MEDS: Gabapentin 100 MG CAPSULE 200 MG PO (21:17)
[2022-06-24] MEDS: Albuterol/Iprat 2.5/0.5MG 3 ML AMPUL.NEB INHALE (21:49)
[2022-06-25] VITALS: BP 106/52; PULSE 95; RESP 14; TEMP 36.8; O2SAT 95
--- NOTE | 2022-06-25 03:42 | PC.NURSE ---
Pt noted with persistent hacking cough, pt said it all started while drinking her Ensure, noted with thick frothy phlegm, LS dim with mild wheezing, Vitals WNL Dr. Higuera was made aware, instructed pt to be NPO but can take meds, Speech eval recommended, Albuterol neb ordered, paged respiratory and came give med, meds crushed with apple sauce which pt had tolerated well.
[2022-06-25 04:00] VITALS: BP 99/52; PULSE 56; RESP 16; TEMP 36.2; O2SAT 97
[2022-06-25 05:39] LABS: Hematocrit 24.3 % (37.0-47.0); Hemoglobin 8.5 g/dl (12.0-16.0); Mean Corpuscular Volume 88.7 fL (80.0-98.0); Mean Platelet Volume 13.1 fL (9.4-12.3); Platelet Count 113 X10*3/uL (160-400); Red Blood Count 2.74 X10*6/uL (4.20-5.50); Red Cell Distribution Width 16.1 % (11.0-16.0)
[2022-06-25 05:47] LABS: WBC ABN SCTR FOR CBC 1; White Blood Count 3.7 X10*3/uL (4.8-10.8)
[2022-06-25] MEDS: Levothyroxine Sodium 100 MCG TABLET PO (05:47)
[2022-06-25] MEDS: Omeprazole 20 MG CAPSULE.DR PO (05:47)
[2022-06-25 05:56] LABS: Anion Gap 14 (12-20); Blood Urea Nitrogen 67 mg/dL (9-16); Calcium 7.5 mg/dL (8.4-10.2); Carbon Dioxide 20 mmol/L (22-29); Chloride 102 mmol/L (96-108); Creatinine Clr Calc Pharmacy 42.3; Estimated Glomerular Filt Rate > 60; Glucose Random 85 mg/dL (60-115); Potassium 4.3 mmol/L (3.3-5.1); Sodium 132 mmol/L (135-145)
[2022-06-25 07:35] VITALS: BP 115/56; PULSE 69; RESP 17; TEMP 36.7; O2SAT 96
[2022-06-25] MEDS: Montelukast Sodium 10 MG TABLET PO (08:57)
[2022-06-25] MEDS: Ascorbic Acid 500 MG TABLET PO (08:57)
[2022-06-25] MEDS: Midodrine HCl 5 MG TABLET PO ×3 (08:57→15:36)
[2022-06-25] MEDS: Digoxin 0.125 MG TABLET PO (08:57)
[2022-06-25] MEDS: Carbidopa/Levodopa CR 25/100 TABLET.ER 2 TAB PO ×3 (08:57→23:40)
[2022-06-25] MEDS: rOPINIRole HCL 0.5 MG TABLET 1.5 MG PO ×3 (08:58→23:39)
[2022-06-25] MEDS: 0.9 % Sodium Chloride Flush 3 ML SYRINGE IVFLUSH ×3 (08:58→23:43)
[2022-06-25] MEDS: Docusate Sodium 100 MG CAPSULE PO (08:58)
[2022-06-25] MEDS: Urea 15 GM POWDER 30 GM PO ×2 (08:58→23:38)
--- NOTE | 2022-06-25 10:13 | HO.PM.IMPN ---
Subjective Subjective Date of Service: 06/25/22 Interval History: seen and examined this morning follow up for UTI/PNA, hyponatremia had episode of choking overnight and was made npo denies sob this am Review of Systems Review of Systems: Yes all other systems are reviewed and are negative Constitutional Constitutional: Denies chills and Denies fever(s) ENT Ears, Nose, Mouth, and Throat: Denies dizziness Cardiovascular Cardiovascular: Denies chest pain, Denies palpitations and Denies dyspnea Respiratory Respiratory: Denies cough and Denies dyspnea Gastrointestinal Gastrointestinal: Denies abdominal pain, Denies nausea and Denies vomiting Neurologic Neurologic: Denies dizziness Endocrine Endocrine: Denies palpitations Physical Exam Vital Signs: Vital Signs: Last Vital Signs Temp 98.1 F 06/25/22 07:35 Pulse 69 06/25/22 07:35 Resp 17 06/25/22 07:35 BP 115/56 L 06/25/22 07:35 Pulse Ox 96 06/25/22 07:35 O2 Del Method 06/25/22 07:35 O2 Flow Rate 2 06/21/22 20:21 BMI result Body Mass Index 19.3 Const: Other: coughing frequently General: alert and awake Nutritional Appearance: thin Orientation/consciousness: patient oriented x3 Resp: Other: frequent coughing Effort & Inspection: normal respiratory effort Auscultation: diminished lung sounds Cardio: Rate: regular rate Heart sounds: S1 normal heart sound present and S2 normal heart sound present GI: Inspection: No distended Palpation (GI): Soft to palpation and nontender Neuro: General: patient oriented x3 and CN's II-XI intact bilaterally Extrem: General: Yes no pedal edema Objective Data Active Medications Acetaminophen (Acetaminophen 325 Mg Tablet) 650 mg PO Q6H PRN PRN Reason: Pain, Mild (Pain Scale 1-3) Last Admin: 06/20/22 08:33 Dose: 650 mg Documented By: PATO Albuterol/Ipratropium (Albuterol/Iprat 2.5/0.5mg 3 Ml Ampul.Neb) 3 ml INHALE Q4H PRN PRN Reason: Shortness of Breath/Wheezing Last Admin: 06/24/22 21:49 Dose: 3 ml Documented By: PATRICK Ascorbic Acid (Ascorbic Acid 500 Mg Tablet) 500 mg PO DAILY [facility] Last Admin: 06/25/22 08:57 Dose: 500 mg Documented By: CHANA Benzonatate (Benzonatate 100 Mg Capsule) 100 mg PO TID PRN PRN Reason: Cough Last Admin: 06/24/22 21:16 Dose: 100 mg Documented By: ALEJANDRA Carbidopa/Levodopa (Carbidopa/Levodopa Cr 25/100 Tablet.Er) 2 tab PO TID [facility] Last Admin: 06/25/22 08:57 Dose: 2 tab Documented By: CHANA Digoxin (Digoxin 0.125 Mg Tablet) 0.125 mg PO DAILY [facility] Last Admin: 06/25/22 08:57 Dose: 0.125 mg Documented By: CHANA Docusate Sodium (Docusate Sodium 100 Mg Capsule) 100 mg PO BID [facility] Last Admin: 06/25/22 08:58 Dose: 100 mg Documented By: CHANA Enoxaparin Sodium (Enoxaparin Sodium 40 Mg/0.4 Ml Syringe) 40 mg SUBCUT BEDTIME [facility] Last Admin: 06/24/22 21:15 Dose: 40 mg Documented By: ALEJANDRA Gabapentin (Gabapentin 100 Mg Capsule) 200 mg PO BEDTIME [facility] Last Admin: 06/24/22 21:17 Dose: 200 mg Documented By: ALEJANDRA Lactulose (Lactulose 20 Gm/30 Ml Solution) 10 gm PO Q24H PRN PRN Reason: Constipation Levofloxacin (Levofloxacin 750 Mg Tablet) 750 mg PO Q24H [facility] Last Admin: 06/24/22 12:17 Dose: 750 mg Documented By: CHANA Levothyroxine Sodium (Levothyroxine Sodium 100 Mcg Tablet) 100 mcg PO DAILY@0600 [facility] Last Admin: 06/25/22 05:47 Dose: 100 mcg Documented By: ALEJANDRA Melatonin (Melatonin 3 Mg Tablet) 6 mg PO BEDTIME PRN PRN Reason: Insomnia Last Admin: 06/19/22 20:57 Dose: 6 mg Documented By: MIRIAM Melatonin (Melatonin 3 Mg Tablet) 6 mg PO BEDTIME [facility] Last Admin: 06/24/22 21:16 Dose: 6 mg Documented By: ALEJANDRA Midodrine (Midodrine Hcl 5 Mg Tablet) 5 mg PO TID@0800,1200,1700 [facility] Last Admin: 06/25/22 08:57 Dose: 5 mg Documented By: CHANA Montelukast Sodium (Montelukast Sodium 10 Mg Tablet) 10 mg PO DAILY [facility] Last Admin: 06/25/22 08:57 Dose: 10 mg Documented By: CHANA Omeprazole (Omeprazole 20 Mg Capsule.Dr) 20 mg PO DAILY@0630 [facility] Last Admin: 06/25/22 05:47 Dose: 20 mg Documented By: ALEJANDRA Ondansetron HCl (Ondansetron Hcl 4 Mg/2 Ml Vial) 4 mg IVPUSH Q8H PRN PRN Reason: Nausea and Vomiting Pharmacy Consult (Consult Rx Perform Med Rec) 1 each MISCELLANE ONCE PRN PRN Reason: Consult order Primidone (Primidone 50 Mg Tablet) 100 mg PO BEDTIME [facility] Last Admin: 06/24/22 21:16 Dose: 100 mg Documented By: ALEJANDRA Ropinirole HCl (Ropinirole Hcl 0.5 Mg Tablet) 1.5 mg PO TID [facility] Last Admin: 06/25/22 08:58 Dose: 1.5 mg Documented By: CHANA Senna (Sennosides 8.6 Mg Tablet) 8.6 mg PO BEDTIME [facility] Last Admin: 06/24/22 21:16 Dose: 8.6 mg Documented By: ALEJANDRA Sodium Chloride (0.9 % Sodium Chloride Flush 3 Ml Syringe) 3 ml IVFLUSH QSHIFT [facility] Last Admin: 06/25/22 08:58 Dose: 3 ml Documented By: CHANA Urea (Urea 15 Gm Powder) 30 gm PO BID [facility] Last Admin: 06/25/22 08:58 Dose: 30 gm Documented By: CHANA Labs CBC & Chem 7: 06/25/22 05:28 06/25/22 05:28 Labs: Laboratory Results - last 24 hr 06/22/22 06/24/22 06/25/22 09:12 16:13 05:28 MCV MCH MCHC RDW Plt Count MPV Absolute Nucleated RBC Nucleated RBC % (auto) Anion Gap 15 14 Estim Creat Clear Calc 42.8 42.3 Estimated GFR > 60 > 60 Random Glucose 102 85 Calcium 7.4 L 7.5 L Crossmatch See Detail Crossmatch (AHG) See Detail 06/25/22 05:28 MCV 88.7 MCH 31.0 MCHC 35.0 RDW 16.1 H Plt Count 113 L MPV 13.1 H Absolute Nucleated RBC 0.000 Nucleated RBC % (auto) 0.0 Anion Gap Estim Creat Clear Calc Estimated GFR Random Glucose Calcium Crossmatch Crossmatch (AHG) Assessment and Plan (1) Hyponatremia: Status: Acute (2) UTI (urinary tract infection): Status: Acute (3) Parkinson's disease: Status: Acute (4) Aortic stenosis: Status: Acute Plan This is a 87-year-old female resident of [place] [facility])with pertinent history of atrial fibrillation, essential tremor, Parkinson's disease, hypothyroidism was sent from [facility] [facility] for evaluation of left-sided chest discomfort. 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 s/p 3U rbc s/p Heme-Onc consult Transfuse if hemoglobin under 7 Hyponatremia sodium up to 132 today seen by nephcally vance appreciated started on urea with improvement plan for fluid restriction on discharge Acute hypoxemic respiratory failure secondary to: Left-sided community-acquired pneumonia no sepsis. blood cultures negative now maintaining normal O2 saturation at room air completed course of antibiotics Acute UTI Urine culture with pansensitive E coli. completed course of antibiotics Paroxysmal atrial fibrillation HR controlled Not on anticoagulation due to anemia Amiodarone discontinued, started on digoxin Significant seen by cardiology - recommend conservative management outpatient follow up Chest pain, musculoskeletal in origin -conservative management with p.o. analgesics p.r.n. Generalized weakness -likely in the setting of anemia + infection. Parkinson's disease -continue home medications Hypothyroidism -continue Synthroid. Elevated TSH. T4 normal COPD -continue home inhalers DVT prophylaxis:? Lovenox 40 Regular diet Do not intubate.? Discussed with patient at bedside and she stated that she would like to be resuscitated but not intubated. attending - domo luis Patient requires ongoing inpatient hospitalization for management of hyponatremia, speech evaluation dispo: plan [facility] Quality Stroke Does the patient have a stroke diagnosis?: No VTE Prior VTE?: No VTE Risk Level:: Medical - moderate - high VTE Device Contraindication: Treatment Not Indicated VTE Drug Contraindication: N/A - Med Ordered
[2022-06-25 11:59] VITALS: BP 129/60; PULSE 65; RESP 16; TEMP 36.2; O2SAT 96
[2022-06-25] MEDS: levoFLOXacin 750 MG TABLET PO (12:30)
--- NOTE | 2022-06-25 15:20 | PM.PNNEP ---
Subjective Subjective Date of Service: 06/25/22 Interval history: Hyponatremia correcting confidently. Physical Exam Vital Signs: Vital Signs: Last Vital Signs Temp 97.2 F 06/25/22 11:59 Pulse 65 06/25/22 11:59 Resp 16 06/25/22 11:59 BP 129/60 06/25/22 11:59 Pulse Ox 96 06/25/22 11:59 O2 Del Method 06/25/22 11:59 O2 Flow Rate 2 06/21/22 20:21 BMI result Body Mass Index 19.3 Const: General: comfortable, no acute distress, alert and awake Resp: Effort & Inspection: normal respiratory effort Auscultation: clear to auscultation bilaterally Cardio: Heart sounds: Murmur heart sound present systolic II/ and at the right sternal border and no rubs GI: Inspection: No distended Palpation (GI): Soft to palpation and nontender Skin: General skin exam: no rashes or lesions noted Neuro: General: CN's II-XI intact bilaterally Extrem: General: Yes normal to inspection and Yes no pedal edema Objective Data Labs CBC & Chem 7: 06/25/22 05:28 06/25/22 05:28 Labs: Laboratory Results - last 24 hr 06/24/22 06/25/22 06/25/22 16:13 05:28 05:28 WBC 3.7 L RBC 2.74 L Hgb 8.5 L D Hct 24.3 L MCV 88.7 MCH 31.0 MCHC 35.0 RDW 16.1 H Plt Count 113 L MPV 13.1 H Absolute Nucleated RBC 0.000 Nucleated RBC % (auto) 0.0 Sodium 128 L 132 L Potassium 4.4 4.3 Chloride 99 102 Carbon Dioxide 18 L 20 L Anion Gap 15 14 BUN 80 H D 67 H Creatinine 0.82 0.83 Estim Creat Clear Calc 42.8 42.3 Estimated GFR > 60 > 60 Random Glucose 102 85 Calcium 7.4 L 7.5 L Microbiology Microbiology Results: Microbiology 06/19/22 01:25 Blood - Venous Blood Culture - Final No growth after 5 days. 06/19/22 01:25 Blood - Venous Blood Culture - Final No growth after 5 days. 06/19/22 07:40 Urine clean catch - Urine crews top Urine Culture - Final Escherichia coli Procedures Date of Service Date of Service: 06/25/22 Assessment & Plan Assessment and plan (1) Hyponatremia: Status: Acute Plan Ms. Ximena Cheng is an 87-year-old female with past medical history of myelodysplastic syndrome, Afib, ALTAGRACIA, GERD, COPD, chronic mild hyponatremia (NA 131-132meq/L), who presented for left-sided chest discomfort. She was found to have acute on chronic anemia requiring 2u PRBC. She was found to have Aortic stenosis being managed conservatively. She was also dosed isotonic crystalloid on 06/22 with serum Na going from 129meq/L --> 125meq/L. 1. Hypoosmolar Euvolemic Hyponatremia History of hyponatremia 131meq/L Presented with Na down to 125meq/L especially after isotonic IVF The patient tells me her appetite is poor and it looks like she takes in excess HYPOtonic intake. She usually drinks 1 ensure a day, which she has not gotten here. 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 Alissa 80 Uosm 503 128 -> 132 so far. Plan: - urea 30g BID for now - avoid IVF support - electrolytes daily is OK Time Spent With Patient Time: Total time spent is greater than 50% in coordination of care (as documented) at patient's floor/unit and/or counseling patient: Progress Note: Quality Stroke Does the patient have a stroke diagnosis?: No
[2022-06-25 16:00] VITALS: BP 122/70; PULSE 77; RESP 18; TEMP 37; O2SAT 99
--- NOTE | 2022-06-25 17:34 | PC.NURSE ---
Patient resting throughout the day, bedside nurse swallow eval performed, patient did well with small sips, when patient took a big sip she did cough. Patient reports this happens from time to time and they did a swallow eval at [facility]. Patient did well with meds crushed in apple sauce. Patient repositioned throughout the day, purewick in place for incontinence. H/H remains stable last blood transfusion, 06/24. VSS, breathing unlabored.
[2022-06-25 19:02] VITALS: BP 136/60; PULSE 61; RESP 18; TEMP 36.6; O2SAT 95
[2022-06-25] MEDS: Primidone 50 MG TABLET 100 MG PO (23:38)
[2022-06-25] MEDS: Gabapentin 100 MG CAPSULE 200 MG PO (23:39)
[2022-06-25] MEDS: Melatonin 3 MG TABLET 6 MG PO (23:39)
[2022-06-25] MEDS: Sennosides 8.6 MG TABLET PO (23:40)
[2022-06-25] MEDS: Enoxaparin Sodium 40 MG/0.4 ML SYRINGE SUBCUT (23:41)
[2022-06-26] VITALS: BP 121/60; PULSE 63; RESP 17; TEMP 36.3; O2SAT 96
[2022-06-26 04:00] VITALS: BP 124/55; PULSE 59; RESP 17; TEMP 36.2; O2SAT 94
[2022-06-26 05:44] LABS: Hematocrit 24.5 % (37.0-47.0); Hemoglobin 8.2 g/dl (12.0-16.0); Mean Corpuscular HGB Conc 33.5 g/dl (31.0-35.0); Mean Corpuscular Hemoglobin 29.8 pg (27.0-33.0); Mean Corpuscular Volume 89.1 fL (80.0-98.0); Mean Platelet Volume 12.3 fL (9.4-12.3); Platelet Count 100 X10*3/uL (160-400); Red Blood Count 2.75 X10*6/uL (4.20-5.50); Red Cell Distribution Width 16.5 % (11.0-16.0)
[2022-06-26 05:53] LABS: WBC ABN SCTR FOR CBC 1; White Blood Count 2.9 X10*3/uL (4.8-10.8)
[2022-06-26 06:00] LABS: Anion Gap 13 (12-20); Blood Urea Nitrogen 54 mg/dL (9-16); Calcium 7.8 mg/dL (8.4-10.2); Carbon Dioxide 21 mmol/L (22-29); Chloride 101 mmol/L (96-108); Creatinine Clr Calc Pharmacy 46.9; Estimated Glomerular Filt Rate > 60; Glucose Random 71 mg/dL (60-115); Potassium 4.2 mmol/L (3.3-5.1); Sodium 131 mmol/L (135-145)
[2022-06-26] MEDS: Omeprazole 20 MG CAPSULE.DR PO (06:32)
[2022-06-26] MEDS: Levothyroxine Sodium 100 MCG TABLET PO (06:32)
[2022-06-26 08:00] VITALS: BP 122/60; PULSE 59; RESP 18; TEMP 36.6; O2SAT 96
[2022-06-26] MEDS: Ascorbic Acid 500 MG TABLET PO (09:16)
[2022-06-26] MEDS: Midodrine HCl 5 MG TABLET PO ×2 (09:16→13:11)
[2022-06-26] MEDS: rOPINIRole HCL 0.5 MG TABLET 1.5 MG PO (09:16)
[2022-06-26] MEDS: Carbidopa/Levodopa CR 25/100 TABLET.ER 2 TAB PO (09:17)
[2022-06-26] MEDS: 0.9 % Sodium Chloride Flush 3 ML SYRINGE IVFLUSH (09:17)
[2022-06-26] MEDS: Montelukast Sodium 10 MG TABLET PO (09:17)
[2022-06-26] MEDS: Digoxin 0.125 MG TABLET PO (09:17)
[2022-06-26 12:00] VITALS: BP 122/59; PULSE 59; RESP 18; TEMP 36.2
--- NOTE | 2022-06-26 12:02 | MHC.SL.SWA ---
Speech Pathologist Impression: Oropharyngeal dysphagia Risk of Aspiration Due to: Neurological Condition Dysphasia Diet Status: Upgrade Liquid Consistency and Strategies for Safe Swallow: Liquid Intake Recommendation: New Site Thick Liquid Intake Strategies: Small Sips No Straws Solid Food Consistency: Dietary Recommendations: Chopped/Advanced (NDD3) Additional Modifications to Solid Foods: Recommend upgrade from NPO to CHOPPED/ADVANCED (NDD3) diet with NECTAR THICK liquids, pills WHOLE in PUREE. Pt has tremor d/t underlying Parkinson's Disease, as a result requires assistance with tray set up and feeding. Food to be cut into small bite size pieces and moistened with sauces and gravies. Liquids by spoon or cup, avoid the use of straws. Recommend aspiration precautions. Sent [place] Message update to RN, RD, w/ these recommendations. Oral Medication Intake: Whole with Puree Please contact the pharmacy regarding appropriate crushable or liquid drug formulations that are available whenever modified delivery is recommended. Compensatory Strategies and Precautions to be Taken for Safe Swallow: Sitting Upright (90 deg) No Straw Liquids from Cup Liquids from Spoon Small Bites and Sips Alternate Liquids/Solids Rate of Ingestion Change Avoid Specific Foods Supervision While Eating and Drinking for Safe Swallow: Total Assistance (1:1) Foods to Avoid: Tough, hard to chew solids Swallowing Recommended Treatments: Compens. Strategy Educat. Recommendation for Speech: Inpatient Speech Therapy Comment: SCIENCE INSTRUCTOR will continue to follow M-F during hospitalization. Frequency/Duration: Date Range for Service Req: Timeline to reassess: Student Development Specialist Clinican/Clinical Fellow: No Supervisory Statement: I have reviewed and agree with the student/clinical fellow's documentation: N/A Speech Language Pathologist: Dania Bearden M.A., CCC-SCIENCE INSTRUCTOR
--- NOTE | 2022-06-26 12:09 | HO.PM.IMPN ---
Subjective Subjective Date of Service: 06/26/22 Interval History: follow up for UTI/PNA, hyponatremia had episode of choking overnight and was made npo, now chopped diet denies sob this am Review of Systems Review of Systems: Yes all other systems are reviewed and are negative Constitutional Constitutional: Denies chills and Denies fever(s) ENT Ears, Nose, Mouth, and Throat: Denies dizziness Cardiovascular Cardiovascular: Denies chest pain, Denies palpitations and Denies dyspnea Respiratory Respiratory: Denies cough and Denies dyspnea Gastrointestinal Gastrointestinal: Denies abdominal pain, Denies nausea and Denies vomiting Neurologic Neurologic: Denies dizziness Endocrine Endocrine: Denies palpitations Physical Exam Vital Signs: Vital Signs: Last Vital Signs Temp 97.9 F 06/26/22 08:00 Pulse 59 06/26/22 08:00 Resp 18 06/26/22 08:00 BP 122/60 06/26/22 08:00 Pulse Ox 96 06/26/22 08:00 O2 Del Method 06/26/22 08:00 O2 Flow Rate 2 06/21/22 20:21 BMI result Body Mass Index 19.3 Appearing in no acute distress lung sounds are clear to auscultation heart regular rate rhythm, clear S1, S2 positive bowel sounds, abdomen is soft, nontender neuro patient is alert, confused Objective Data Active Medications Acetaminophen (Acetaminophen 325 Mg Tablet) 650 mg PO Q6H PRN PRN Reason: Pain, Mild (Pain Scale 1-3) Last Admin: 06/20/22 08:33 Dose: 650 mg Documented By: PATO Albuterol/Ipratropium (Albuterol/Iprat 2.5/0.5mg 3 Ml Ampul.Neb) 3 ml INHALE Q4H PRN PRN Reason: Shortness of Breath/Wheezing Last Admin: 06/24/22 21:49 Dose: 3 ml Documented By: PATRICK Ascorbic Acid (Ascorbic Acid 500 Mg Tablet) 500 mg PO DAILY NELIDA Last Admin: 06/26/22 09:16 Dose: 500 mg Documented By: KILEY Benzonatate (Benzonatate 100 Mg Capsule) 100 mg PO TID PRN PRN Reason: Cough Last Admin: 06/24/22 21:16 Dose: 100 mg Documented By: ALEJANDRA Carbidopa/Levodopa (Carbidopa/Levodopa Cr 25/100 Tablet.Er) 2 tab PO TID [facility] Last Admin: 06/26/22 09:17 Dose: 2 tab Documented By: KILEY Digoxin (Digoxin 0.125 Mg Tablet) 0.125 mg PO DAILY [facility] Last Admin: 06/26/22 09:17 Dose: 0.125 mg Documented By: KILEY Docusate Sodium (Docusate Sodium 100 Mg Capsule) 100 mg PO BID [facility] Last Admin: 06/26/22 09:23 Dose: Not Given Documented By: KILEY Non-Admin Reason: cannot crush Enoxaparin Sodium (Enoxaparin Sodium 40 Mg/0.4 Ml Syringe) 40 mg SUBCUT BEDTIME [facility] Last Admin: 06/25/22 23:41 Dose: 40 mg Documented By: CONSTANZA Gabapentin (Gabapentin 100 Mg Capsule) 200 mg PO BEDTIME [facility] Last Admin: 06/25/22 23:39 Dose: 200 mg Documented By: CONSTANZA Lactulose (Lactulose 20 Gm/30 Ml Solution) 10 gm PO Q24H PRN PRN Reason: Constipation Levofloxacin (Levofloxacin 750 Mg Tablet) 750 mg PO Q24H [facility] Last Admin: 06/25/22 12:30 Dose: 750 mg Documented By: CHANA Levothyroxine Sodium (Levothyroxine Sodium 100 Mcg Tablet) 100 mcg PO DAILY@0600 [facility] Last Admin: 06/26/22 06:32 Dose: 100 mcg Documented By: CONSTANZA Melatonin (Melatonin 3 Mg Tablet) 6 mg PO BEDTIME PRN PRN Reason: Insomnia Last Admin: 06/19/22 20:57 Dose: 6 mg Documented By: MIRIAM Melatonin (Melatonin 3 Mg Tablet) 6 mg PO BEDTIME [facility] Last Admin: 06/25/22 23:39 Dose: 6 mg Documented By: CONSTANZA Midodrine (Midodrine Hcl 5 Mg Tablet) 5 mg PO TID@0800,1200,1700 [facility] Last Admin: 06/26/22 09:16 Dose: 5 mg Documented By: KILEY Montelukast Sodium (Montelukast Sodium 10 Mg Tablet) 10 mg PO DAILY [facility] Last Admin: 06/26/22 09:17 Dose: 10 mg Documented By: KILEY Omeprazole (Omeprazole 20 Mg Capsule.) 20 mg PO DAILY@0630 [facility] Last Admin: 06/26/22 06:32 Dose: 20 mg Documented By: CONSTANZA Ondansetron HCl (Ondansetron Hcl 4 Mg/2 Ml Vial) 4 mg IVPUSH Q8H PRN PRN Reason: Nausea and Vomiting Pharmacy Consult (Consult Rx Perform Med Rec) 1 each MISCELLANE ONCE PRN PRN Reason: Consult order Primidone (Primidone 50 Mg Tablet) 100 mg PO BEDTIME [facility] Last Admin: 06/25/22 23:38 Dose: 100 mg Documented By: CONSTANZA Ropinirole HCl (Ropinirole Hcl 0.5 Mg Tablet) 1.5 mg PO TID [facility] Last Admin: 06/26/22 09:16 Dose: 1.5 mg Documented By: KILEY Senna (Sennosides 8.6 Mg Tablet) 8.6 mg PO BEDTIME [facility] Last Admin: 06/25/22 23:40 Dose: 8.6 mg Documented By: CONSTANZA Sodium Chloride (0.9 % Sodium Chloride Flush 3 Ml Syringe) 3 ml IVFLUSH QSHIFT [facility] Last Admin: 06/26/22 09:17 Dose: 3 ml Documented By: KILEY Urea (Urea 15 Gm Powder) 30 gm PO DAILY [facility] Labs CBC & Chem 7: 06/26/22 05:15 06/26/22 05:15 Labs: Laboratory Results - last 24 hr 06/26/22 06/26/22 05:15 05:15 MCV 89.1 MCH 29.8 MCHC 33.5 RDW 16.5 H Plt Count 100 L MPV 12.3 Absolute Nucleated RBC 0.000 Nucleated RBC % (auto) 0.0 Anion Gap 13 Estim Creat Clear Calc 46.9 Estimated GFR > 60 Random Glucose 71 Calcium 7.8 L Assessment and Plan (1) Hyponatremia: Status: Acute (2) UTI (urinary tract infection): Status: Acute (3) Parkinson's disease: Status: Acute (4) Aortic stenosis: Status: Acute Plan This is a 87-year-old female resident of [facility] ([facility]with pertinent history of atrial fibrillation, essential tremor, Parkinson's disease, hypothyroidism was sent from detention for evaluation of left-sided chest discomfort. Dysphagia likely r/t parkinsons made npo overnight, seen and evaluated by Speech rec Chopped diet with nectar thick liquids able to take po meds without difficulty but coughing with food intake on bedside swallow Acute on chronic anemia. 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 s/p 3U rbc s/p Heme-Onc consult Transfuse if hemoglobin under 7 Hyponatremia sodium 131 seen by nephro, recfelisha appreciated started on urea with improvement, decrease to daily as per nephro plan for fluid restriction on discharge Acute hypoxemic respiratory failure secondary to: Left-sided community-acquired pneumonia no sepsis. blood cultures negative now maintaining normal O2 saturation at room air completed course of antibiotics Acute UTI Urine culture with pansensitive E coli. completed course of antibiotics Paroxysmal atrial fibrillation HR controlled Not on anticoagulation due to anemia Amiodarone discontinued, started on digoxin Significant seen by cardiology - recommend conservative management outpatient follow up Chest pain, musculoskeletal in origin conservative management with p.o. analgesics p.r.n. Generalized weakness likely in the setting of anemia + infection. Parkinson's disease continue home medications Hypothyroidism continue Synthroid. Elevated TSH. T4 normal COPD continue home inhalers DVT prophylaxis with Lovenox Do not intubate.? Discussed with patient at bedside and she stated that she would like to be resuscitated but not intubated. attending - Dr. Villagran Patient requires ongoing inpatient hospitalization for management of hyponatremia, speech evaluation dispo: [facility] Quality Stroke Does the patient have a stroke diagnosis?: No VTE Prior VTE?: No VTE Risk Level:: Medical - moderate - high VTE Device Contraindication: Treatment Not Indicated VTE Drug Contraindication: N/A - Med Ordered
--- NOTE | 2022-06-26 12:11 | PM.PNNEP ---
Subjective Subjective Date of Service: 06/26/22 Interval history: Events noted. All recent data reviewed Physical Exam Vital Signs: Vital Signs: Last Vital Signs Temp 97.9 F 06/26/22 08:00 Pulse 59 06/26/22 08:00 Resp 18 06/26/22 08:00 BP 122/60 06/26/22 08:00 Pulse Ox 96 06/26/22 08:00 O2 Del Method 06/26/22 08:00 O2 Flow Rate 2 06/21/22 20:21 BMI result Body Mass Index 19.3 Const: General: no acute distress Neck: Neck: Yes supple Resp: Auscultation: diminished lung sounds Cardio: Rate: regular rate GI: Palpation (GI): Soft to palpation Neuro: General: moves all extremities Objective Data Labs CBC & Chem 7: 06/26/22 05:15 06/26/22 05:15 Labs: Laboratory Results - last 24 hr 06/26/22 06/26/22 05:15 05:15 WBC 2.9 L RBC 2.75 L Hgb 8.2 L Hct 24.5 L MCV 89.1 MCH 29.8 MCHC 33.5 RDW 16.5 H Plt Count 100 L MPV 12.3 Absolute Nucleated RBC 0.000 Nucleated RBC % (auto) 0.0 Sodium 131 L Potassium 4.2 Chloride 101 Carbon Dioxide 21 L Anion Gap 13 BUN 54 H Creatinine 0.75 Estim Creat Clear Calc 46.9 Estimated GFR > 60 Random Glucose 71 Calcium 7.8 L Microbiology Microbiology Results: Microbiology 06/19/22 01:25 Blood - Venous Blood Culture - Final No growth after 5 days. 06/19/22 01:25 Blood - Venous Blood Culture - Final No growth after 5 days. 06/19/22 07:40 Urine clean catch - Urine crews top Urine Culture - Final Escherichia coli Procedures Date of Service Date of Service: 06/26/22 Assessment & Plan Assessment and plan (1) Hyponatremia: Status: Acute Assessment and Plan: Ms. Ximena Cheng is an 87-year-old female with past medical history of myelodysplastic syndrome, Afib, ALTAGRACIA, GERD, COPD, chronic mild hyponatremia (NA 131-132meq/L), who presented for left-sided chest discomfort. She was found to have acute on chronic anemia requiring 2u PRBC. She was found to have Aortic stenosis being managed conservatively. She was also dosed isotonic crystalloid on 06/22 with serum Na going from 129meq/L --> 125meq/L. Euvolemic Hyponatremia History of hyponatremia 131meq/L Presented with Na down to 125meq/L Has a component of SIADH Reduce urea to 30g daily Shall arrange F/U when D/Raúl Time Spent With Patient Time: Total time spent is greater than 50% in coordination of care (as documented) at patient's floor/unit and/or counseling patient: Progress Note: Quality Stroke Does the patient have a stroke diagnosis?: No
--- NOTE | 2022-06-26 12:16 | P.DS_ITS ---
DS: Providers Provider Date of Service: 06/26/22 Date of admission: 06/22/22 12:32 Primary care physician: Art Ortiz MD Consults: 06/19/22 11:16 Consult to Hematology / Oncology Routine Consulting Provider: Michael Noble Reason for consultation: abnormal peripheral -atypical mononuclear cells in her peripheral blood - 06/21/22 09:28 Consult to Cardiology Routine Consulting Provider: Nik Clay Reason for consultation: significant Has provider been notified: No 06/23/22 13:18 Consult to Nephrology Routine Consulting Provider: Good Reed Reason for consultation: hyponatremia Has provider been notified: No Attending physician on discharge: Andrzej Villagran Discharging clinician: Lele Arechiga DS: Diagnosis Discharge Diagnosis (1) Parkinson's disease: Status: Acute DS: Summary Hospital Course Hospital Course: HP as per admitting provider This is a 87-year-old female resident of senior care with pertinent history of atrial fibrillation, essential tremor, Parkinson's disease, hypothyroidism was sent from senior care for evaluation of left-sided chest discomfort.? Patient states it started 1 day ago when patient was being transferred from bed to chair.? Although patient denies abuse, she believes that the transfer was handled roughly and patient has been experiencing left chest wall pain since which has been constant and worse with movement.? Tenderness present.? Patient also complains of productive cough, unclear duration.? Is not able to say if she has had fevers or chills.? On review of systems, patient states she has been having generalized weakness/fatigue ability and dyspnea on exertion over the last few days.? Patient is a poor historian and is unable to give specifics. the emergency department, imaging revealed left-sided pneumonia.? Also her hemoglobin was low at 7.3 . 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 s/p 3U rbc Transfuse if hemoglobin under 7 Hyponatremia Sodium 131 today for recheck in 1 week seen by cally dodson appreciated started on urea with improvement, decreased from b.i.d. to daily Keep fluids to maximum of 2 L a day Acute hypoxemic respiratory failure secondary to: Left-sided community-acquired pneumonia. Resolved no sepsis. blood cultures negative now maintaining normal O2 saturation at room air completed course of antibiotics Acute UTI Urine culture with pansensitive E coli. completed course of antibiotics Paroxysmal atrial fibrillation HR controlled Not on anticoagulation due to anemia Amiodarone discontinued, started on digoxin Significant seen by cardiology - recommend conservative management outpatient follow up Chest pain, musculoskeletal in origin conservative management with p.o. analgesics p.r.n. Generalized weakness likely in the setting of anemia + infection. Parkinson's disease continue home medications Hypothyroidism continue Synthroid. Elevated TSH. T4 normal COPD continue home inhalers Time Spent with Patient Time attestation: Total time spent providing and/or coordinating discharge services: Discharge coordination time: Greater than 30 minutes Quality: Safe Use of Opioids Does Pt have an Active Cancer Diagnosis on the Problem List?: No Quality: Stroke Does the patient have a stroke diagnosis?: No Physical Exam Vital Signs: Vital Signs: Last Vital Signs Temp 97.9 F 06/26/22 08:00 Pulse 59 06/26/22 08:00 Resp 18 06/26/22 08:00 BP 122/60 06/26/22 08:00 Pulse Ox 96 06/26/22 08:00 O2 Del Method 06/26/22 08:00 O2 Flow Rate 2 06/21/22 20:21 BMI result Body Mass Index 19.3 Appearing in no acute distress head is normocephalic atraumatic eyes pupils are PERRLA sclera is anicteric mouth throat mucous membranes are intact and moist neck is supple no lymphadenopathy, no JVD noted lung sounds are clear to auscultation heart regular rate rhythm, clear S1, S2 positive bowel sounds, abdomen is soft, nontender neuro patient is alert x3, no focal deficits DS: Data Data Completed and Pending Labs on day of discharge: Laboratory Results - last 24 hr 06/26/22 06/26/22 05:15 05:15 WBC 2.9 L RBC 2.75 L Hgb 8.2 L Hct 24.5 L MCV 89.1 MCH 29.8 MCHC 33.5 RDW 16.5 H Plt Count 100 L MPV 12.3 Absolute Nucleated RBC 0.000 Nucleated RBC % (auto) 0.0 Sodium 131 L Potassium 4.2 Chloride 101 Carbon Dioxide 21 L Anion Gap 13 BUN 54 H Creatinine 0.75 Estim Creat Clear Calc 46.9 Estimated GFR > 60 Random Glucose 71 Calcium 7.8 L Discharge Plan Discharge Anticipated Discharge Date/Time: 06/26/22 12:19 Patient Disposition: Xfer LT Discharge Diagnosis: Dysphagia Acute on chronic anemia Hyponatremia Acute hypoxemic respiratory failure secondary to community-acquired pneumonia UTI Referrals: Art Ortiz MD [Primary Care Provider] - 1 Week Discharge Medications: New digoxin 125 mcg (0.125 mg) Tablet 0.125 mg PO DAILY Qty: 30 0RF urea 15 gram powder in packet 2 packet PO DAILY Qty: 8 0RF Continued sennosides [senna] 8.6 mg Tablet 17.2 mg PO Q24H PRN (Reason: Constipation) acetaminophen 325 mg Tablet 975 mg PO Q8H midodrine 5 mg Tablet 5 mg PO TID Rx Instructions: do not give last dose of day after 6PM or within 4 hrs of bedtime levothyroxine 100 mcg Tablet 100 mcg PO DAILY ascorbic acid (vitamin C) 500 mg Tablet 500 mg PO DAILY hydrocortisone 1 % Cream 1 appl TOPICAL Q24H PRN (Reason: Rash) docusate sodium 100 mg Capsule 100 mg PO BID melatonin 5 mg Tablet 5 mg PO BEDTIME menthol-zinc oxide [Calmoseptine] 0.44-20.6 % Ointment 1 appl TOPICAL BID Anoro Ellipta 62.5-25 mcg/actuation Blister With Device 1 inh INHALATION DAILY Rytary 23.75-95 mg Capsule, Extended Release 2 cap PO TID Rx Instructions: divide evenly over waking hours carboxymethylcellulose sodium 1 % Drops 1 drp OPHTHALMIC (EYE) Q12H PRN (Reason: Dry Eye(S)) carboxymethylcellulose sodium 1 % Drops 1 drp OPHTHALMIC (EYE) BID Saccharomyces boulardii 1 cap PO BID lactulose 10 gram/15 mL solution 15 ml PO Q24H PRN (Reason: Constipation) omeprazole 20 mg capsule,delayed release(DR/EC) 20 mg PO DAILY ondansetron 4 mg tablet,disintegrating 4 mg PO Q8H PRN (Reason: Nausea) gabapentin 100 mg capsule 200 mg PO BEDTIME montelukast 10 mg tablet 10 mg PO DAILY lidocaine 5 % adhesive patch,medicated 1 patch topical DAILY Rx Instructions: APPLY PATCH TO THE RIGHT HIP senna 8.6 mg capsule 8.6 mg PO BEDTIME ropinirole 3 mg tablet 1.5 mg PO TID primidone 50 mg tablet 100 mg PO BEDTIME Discontinued amiodarone 200 mg tablet 400 mg PO DAILY Discharge Orders: Discharge Order (Routine); Ordered 06/26/22 Ordered By: Kylah Arechiga Diet: Advance to usual diet Activity on Discharge: As tolerated Stand Alone Forms: Patient Portal Discharge page Other Ambulatory Orders: Basic Metabolic Panel (Routine) Timeframe: 1 Week Facility: [facility] - Location: Laboratory Ordered By: Kylah Arechiga Care Plan Goals: Complete resolution of symptoms Health Concerns: Dysphagia Acute on chronic anemia Hyponatremia Acute hypoxemic respiratory failure secondary to community-acquired pneumonia UTI Plan of Treatment: Take all medications as prescribed Check BMP in 1 week 2 L fluid restriction daily Assessment: see discharge summary
[2022-06-26] MEDS: levoFLOXacin 750 MG TABLET PO (13:11)
[2022-06-26 14:40] LABS: COVID-19 Test Negative (Negative); IDNOW Serial# 9DB6401D
--- NOTE | 2022-06-26 14:53 | MHC.CM.PN ---
IMM 06/26/22, PT MEDICALLY CLEARED FOR D/C BACK TO [facility] FOR RESUMP OF LTC, [facility] FOR BLS TRANSPORT
--- NOTE | 2022-06-26 15:07 | PC.NURSE ---
report called to [facility] [place], patient is ready to be transported.
== END 2022-06-26 15:30 | DRG 193 ==
LOC: HO.ED 06-19 00:18 → HO.EDOVER 06-19 01:24 → HO.S3 06-19 15:44
PROVIDERS: Family Medicine; Physician Assistant Medical; Admitting Provider Student in an Organized Health Care Education/Training Program; Emergency Provider Emergency Medicine; PCP Internal Medicine; Visit Provider Nurse Practitioner Acute Care
DX: J18.9 Pneumonia, unspecified organism (principal); J96.01 Acute respiratory failure with hypoxia; J44.0 Chronic obstructive pulmonary disease with (acute) lower respiratory infection; N39.0 Urinary tract infection, site not specified; C92.10 Chronic myeloid leukemia, BCR/ABL-positive, not having achieved remission; E22.2 Syndrome of inappropriate secretion of antidiuretic hormone; G20 Parkinson's disease; E03.9 Hypothyroidism, unspecified; I48.0 Paroxysmal atrial fibrillation; D46.9 Myelodysplastic syndrome, unspecified; I35.0 Nonrheumatic aortic (valve) stenosis; B96.20 Unspecified Escherichia coli [E. coli] as the cause of diseases classified elsewhere; G47.33 Obstructive sleep apnea (adult) (pediatric); J44.9 Chronic obstructive pulmonary disease, unspecified; K21.9 Gastro-esophageal reflux disease without esophagitis; Z87.891 Personal history of nicotine dependence; Z88.1 Allergy status to other antibiotic agents; Z79.890 Hormone replacement therapy; Z79.899 Other long term (current) drug therapy
CPT/HCPCS: 36415; 71250; 80048; 80076; 81001; 82272; 82607; 82728; 82746; 83540; 83605; 83690; 83880; 83930; 83935; 84295; 84300; 84439; 84443; 84481; 84484; 85007; 85025; 85027; 86850; 86870; 86880; 86885; 86900; 86901; 86920; 86922; 87040; 87086; 87088; 87186; 87635; 92610; 93005; 93306; 94640; 99285; J0456; J0696; J1650; J2543; P9016; Q9957

== ENCOUNTER 2022-07-29 16:07 | Inpatient (IN) | payer MEDICARE, SELFPAY ==
[2022-07-29] VITALS (9 sets, daily range): BP systolic 102–144; BP diastolic 52–99; PULSE 70–81; RESP 10–16; TEMP 36.2–36.7; O2SAT 97–99; BMI 17.4
--- NOTE | 2022-07-29 | ECG_ITS ---
Test Reason : VOMITING Blood Pressure : / mmHG Vent. Rate : 076 BPM Atrial Rate : 076 BPM P-R Int : 212 ms QRS Dur : 080 ms QT Int : 390 ms P-R-T Axes : 080 -18 053 degrees QTc Int : 438 ms Sinus rhythm with 1st degree A-V block Otherwise normal ECG When compared with ECG of 22-JUN-2022 08:24, Sinus rhythm has replaced Atrial fibrillation Referred By: Generic ED Physician Electronically Signed By:DAVONTE CUELLO MD
--- NOTE | ~2022-07-29 | US_ITS ---
EXAMINATION: ULTRASOUND PELVIC, COMPLETE CLINICAL INFORMATION: There are fluid density seen on CAT scan. COMPARISON: CT abdomen and pelvis today. TECHNIQUE: Transabdominal imaging. Spectral Doppler and color Doppler exam was utilized. LMP: Postmenopausal. FINDINGS: UTERUS: There is fluid distending the endometrial cavity. This has low level echoes, mildly complex. This measures 2.3 x 1.6 x 1.8 cm. No hyperemia on color Doppler. The uterus overall measures 4.1 x 2.1 x 3.6 cm. No uterine mass. ADNEXA: Neither ovary is visualized. No adnexal abnormality. Cul-de-sac: No Fluid US/US pelvic complete IMPRESSION: 1. There is fluid distending the endometrial cavity. This is mildly complex. No hyperemia on color Doppler. Consider CARDIAC EXERCISE SPECIALIST consult for further evaluation. 2. No uterine mass. 3. Neither ovary is visualized. No adnexal abnormality. 4. No fluid in the cul-de-sac.
--- NOTE | ~2022-07-29 | CT_ITS ---
EXAMINATION: CT ABDOMEN AND PELVIS WITHOUT CONTRAST CLINICAL INFORMATION: Constipation. Abdominal pain. Nausea and vomiting. COMPARISON: None TECHNIQUE: Multidetector volumetric imaging was performed from the superior aspect of the liver through the pubic symphysis. Sagittal and coronal reformatted images were obtained on the technologist's workstation. This CT examination was performed using dose optimization techniques as appropriate, variously including the following: *Automated exposure control *Adjustment of mA and/or kV according to patient size (this includes techniques or standardized protocols for targeted exams where dose is matched to indication/reason for exam; i.e. extremities or head) *Use of iterative reconstruction technique DLP: 494 mGy-cm FINDINGS: LUNG BASES: Linear scarring at both lung bases. Small volume pericardial effusion. Heavy calcification of coronary arteries. There are vascular calcifications of aorta. LIVER, GALLBLADDER, AND BILIARY TREE: The liver is normal in size, shape, and attenuation. No focal hepatic lesion or biliary ductal dilatation is present. Status post cholecystectomy. PANCREAS: Unremarkable. SPLEEN: Unremarkable. ADRENAL GLANDS: Unremarkable. KIDNEYS AND URETERS: The kidneys are normal in size, shape, and attenuation. No hydronephrosis, hydroureter, or calculi seen. No perinephric stranding. BLADDER: Unremarkable. GASTROINTESTINAL TRACT: There are scattered diverticula of the sigmoid colon and descending colon. There is no diverticulitis. There is no bowel wall thickening /edema. There is no bowel obstruction. There is a moderate volume of stool in the colon. The appendix is normal . The small bowel loops are unremarkable. The stomach is normal. There is no hiatal hernia. ABDOMINAL WALL: No significant hernia is appreciated. LYMPH NODES: Normal. VASCULAR: Vascular calcifications throughout the abdomen and pelvis. No aneurysm of the aorta. PELVIC VISCERA: Hypodensity of the endometrial cavity of the uterus measuring 1.8 cm. This has a density measurement of 16 Hounsfield units, complex fluid. This is new since prior CAT scan 07/05/2021. Recommend pelvic ultrasound for further evaluation. OSSEOUS STRUCTURES: Multilevel degenerative spondylosis the spine. CT/CT abdomen pelvis wo IV con IMPRESSION: 1. No acute abnormality the abdomen or pelvis. 2. Diverticulosis of colon. No acute abnormality of the bowel. 3. 1.8 cm fluid density of the endometrial cavity of the uterus. Recommend pelvic ultrasound for further evaluation. 4. Status post cholecystectomy. 5. Small pericardial effusion. Minimal Fleischner guidelines were followed.
--- NOTE | ~2022-07-29 | XR_ITS ---
EXAMINATION: XR CHEST CLINICAL INFORMATION: Syncope COMPARISON: CT chest 06/18/2022 TECHNIQUE: Frontal portable view of the chest was obtained. 4:59 PM FINDINGS: Emphysematous hyperlucency of lungs. No acute airspace disease. No pulmonary vascular congestion. Heart size is normal. The cardiac and mediastinal contours are normal. XR/XR chest 1V IMPRESSION: No acute abnormality of the chest.
--- NOTE | 2022-07-29 16:38 | ED.GENADULT ---
HPI - General Adult General Chief complaint: Nausea/Vomiting/Diarrhea <SILVERIO Dunlap - Last Filed: 07/29/22 18:03> Stated complaint: syncope <SILVERIO Dunlap Last Filed: 07/29/22 18:03> Time Seen by Provider: 07/29/22 16:37 <SILVERIO Dunlap - Last Filed: 07/29/22 18:03> Source: patient and EMS <SILVERIO Dunlap - Last Filed: 07/29/22 18:03> Mode of arrival: EMS <SILVERIO Dunlap - Last Filed: 07/29/22 18:03> History of Present Illness HPI narrative: 87-year-old female with a past medical history of aortic stenosis, CML, essential tremor, hypothyroid, ALTAGRACIA, proximal AFib not on anticoagulation, Parkinson's, anemia, BIBA from [facility] for suspected bowel obstruction, patient was constipated, given OTC medications, reports last BM this morning, however on EMS arrival patient nauseous and vomiting, became bradycardic in the 20s and had syncopal episode. Patient reports generalized fatigue, nausea, and abdominal discomfort. Denies diarrhea, dysuria/hematuria, CP/SOB, melena/hematochezia. Reports last transfusion last week <SILVERIO Dunlap - Last Filed: 07/29/22 18:03> Onset (ago): hour(s) <SILVERIO Dunlap - Last Filed: 07/29/22 18:03> Related Data Home medications: Home Medications Medication Instructions Recorded Confirmed primidone 50 mg tablet 100 mg PO BEDTIME 11/02/21 06/19/22 gabapentin 100 mg capsule 200 mg PO BEDTIME 04/19/22 06/19/22 lactulose 10 gram/15 mL oral 15 ml PO Q24H PRN Constipation 04/19/22 06/19/22 solution lidocaine 5 % topical patch 1 patch topical DAILY 04/19/22 06/19/22 montelukast 10 mg tablet 10 mg PO DAILY 04/19/22 06/19/22 omeprazole 20 mg capsule,delayed 20 mg PO DAILY 04/19/22 06/19/22 release ondansetron 4 mg disintegrating 4 mg PO Q8H PRN Nausea 04/19/22 06/19/22 tablet ropinirole 3 mg tablet 1.5 mg PO TID 04/19/22 06/19/22 sennosides 8.6 mg capsule (senna) 8.6 mg PO BEDTIME 04/19/22 06/19/22 Saccharomyces boulardii 1 cap PO BID 06/19/22 06/19/22 acetaminophen 325 mg tablet 975 mg PO Q8H 06/19/22 06/19/22 ascorbic acid (vitamin C) 500 mg 500 mg PO DAILY 06/19/22 06/19/22 tablet carbidopa ER 23.75 mg-levodopa 95 2 cap PO TID 06/19/22 06/19/22 mg capsule,extended release (Rytary) carboxymethylcellulose sodium 1 % 1 drp ophthalmic (eye) BID 06/19/22 06/19/22 eye drops carboxymethylcellulose sodium 1 % 1 drp ophthalmic (eye) Q12H PRN 06/19/22 06/19/22 eye drops Dry Eye(S) docusate sodium 100 mg capsule 100 mg PO BID 06/19/22 06/19/22 hydrocortisone 1 % topical cream 1 appl topical Q24H PRN Rash 06/19/22 06/19/22 levothyroxine 100 mcg tablet 100 mcg PO DAILY 06/19/22 06/19/22 melatonin 5 mg tablet 5 mg PO BEDTIME 06/19/22 06/19/22 menthol 0.44 %-zinc oxide 20.6 % 1 appl topical BID 06/19/22 06/19/22 topical ointment (Calmoseptine) midodrine 5 mg tablet 5 mg PO TID 06/19/22 06/19/22 sennosides 8.6 mg tablet (senna) 17.2 mg PO Q24H PRN Constipation 06/19/22 06/19/22 umeclidinium 62.5 mcg-vilanterol 1 inh inhalation DAILY 06/19/22 06/19/22 25 mcg/actuation powdr for inhalation (Anoro Ellipta) Previous Rx's Medication Instructions Recorded digoxin 125 mcg (0.125 mg) tablet 0.125 mg PO DAILY #30 tabs 06/26/22 urea 15 gram oral powder packet 2 packet PO DAILY #8 ea 06/26/22 <SILVERIO Dunlap - Last Filed: 07/29/22 18:03> Allergies/adverse reactions: Allergies Allergy/AdvReac Type Severity Reaction Status Date / Time vancomycin Allergy Mild unknown Verified 06/20/22 13:07 <SILVERIO Dunlap - Last Filed: 07/29/22 18:03> Review of Systems Review of Systems: Constitutional: No Fever, No Chills, +Fatigue, + Malaise ENT/Mouth: No Ear Pain, No Nasal Congestion, No sore throat, No Rhinorrhea, No Swallowing Difficulty Eyes: No Eye Pain, No Swelling, No Redness, No Vision Changes Cardiovascular: No Chest Pain, No SOB, No Dyspnea on Exertion, No Orthopnea, No Edema, No Palpitations Respiratory: No Cough, No Sputum, No Dyspnea Gastrointestinal: + Nausea, + Vomiting, No Diarrhea, + Constipation, + Abdominal pain Genitourinary: No Dysuria, No Urinary Frequency, No Hematuria, No Urinary Incontinence/retention Musculoskeletal: No joint pain, No Myalgias, No Joint Swelling Skin: No Skin Lesions, No rash Neuro: No Weakness, No Numbness, No Paresthesias, + Loss of Consciousness, No Dizziness, No Headache <SILVERIO Dunlap - Last Filed: 07/29/22 18:03> Yes all other systems are reviewed and are negative <SILVERIO Dunlap - Last Filed: 07/29/22 18:03> Constitutional: Constitutional: Reports as per HPI <SILVERIO Dunlap - Last Filed: 07/29/22 18:03> [facility] Past Medical History Attestation statement: The following information was validated with the patient. <SILVERIO Dunlap - Last Filed: 07/29/22 18:03> Medical History: Medical History Abnormal brain MRI Aortic stenosis CML (chronic myelocytic leukemia) Essential tremor (~06/19/22) Hypothyroid Obstructive sleep apnea PAF (paroxysmal atrial fibrillation) Parkinson's disease <SILVERIO Dunlap - Last Filed: 07/29/22 18:03> Surgical History: Surgical History Hx of cholecystectomy Hx of total knee replacement <SILVERIO Dunlap Last Filed: 07/29/22 18:03> Family History Family History: Family History Mother Alzheimer's dementia Diverticulitis Father Cancer <SILVERIO Dunlap - Last Filed: 07/29/22 18:03> Social History Social History: Social History Household Members: Other Housing: Detention Do you presently have visiting nurse or other home services: No Alcohol intake: never Patient Tobacco Use Status: Former Tobacco user Quit Date: 1991 Smoked in Last 30 Days: No Use of substances other than those prescribed or required for medical reasons: No Advance Directives: Yes Advance Directives on File: Yes Advance Directives Date on File: 06/27/22 <SILVERIO Dunlap - Last Filed: 07/29/22 18:03> Physical Exam ED Vital Signs: Vital Signs - 24 hr 07/29/22 16:27 07/29/22 16:34 07/29/22 18:00 Temperature 97.6 F 98.0 F Pulse Rate 80 71 Respiratory Rate 16 16 Blood Pressure 144/99 H 128/57 L Pulse Oximetry 98 98 Oxygen Delivery Method Room Air Room Air 07/29/22 19:17 07/29/22 19:59 Temperature 97.2 F 97.8 F Pulse Rate 71 76 Respiratory Rate 12 16 Blood Pressure 118/52 L 133/57 L Pulse Oximetry 99 98 Oxygen Delivery Method Room Air Room Air BMI result Body Mass Index 17.4 <SILVERIO Dunlap - Last Filed: 07/29/22 18:03> Vital Signs - 24 hr 07/29/22 16:27 07/29/22 16:34 07/29/22 18:00 Temperature 97.6 F 98.0 F Pulse Rate 80 71 Respiratory Rate 16 16 Blood Pressure 144/99 H 128/57 L Pulse Oximetry 98 98 Oxygen Delivery Method Room Air Room Air 07/29/22 19:17 07/29/22 19:59 Temperature 97.2 F 97.8 F Pulse Rate 71 76 Respiratory Rate 12 16 Blood Pressure 118/52 L 133/57 L Pulse Oximetry 99 98 Oxygen Delivery Method Room Air Room Air BMI result Body Mass Index 17.4 <SILVERIO Queen - Last Filed: 07/29/22 21:42> Const General: cooperative, no acute distress, alert, awake and ill appearing <SILVERIO Dunlap - Last Filed: 07/29/22 18:03> Orientation/consciousness: patient oriented x3 <SILVERIO Dunlap - Last Filed: 07/29/22 18:03> Limitations: no limitations <SILVERIO Dunlap - Last Filed: 07/29/22 18:03> HENMT Head: Yes normal to inspection and Yes atraumatic <Dominga Patrick PA - Last Filed: 07/29/22 18:03> Ears: hearing grossly normal bilaterally <SILVERIO Dunlap - Last Filed: 07/29/22 18:03> General nose exam: Normal external nose present <SILVERIO Dunlap - Last Filed: 07/29/22 18:03> Face and sinus: Yes normal facial exam <SILVERIO Dunlap - Last Filed: 07/29/22 18:03> Eyes General: appearance normal, both eyes and all related structures <Dominga Patrick PA - Last Filed: 07/29/22 18:03> EOM: EOMs intact bilaterally <Dominga Patrick PA - Last Filed: 07/29/22 18:03> Neck Neck: Yes normal visual inspection and Yes no meningeal signs <Dominga Patrick PA - Last Filed: 07/29/22 18:03> Resp Effort & Inspection: normal respiratory effort and no respiratory distress <SILVERIO Dunlap - Last Filed: 07/29/22 18:03> Auscultation: clear to auscultation bilaterally, no crackles, no rales, no rhonchi and no wheezes <Dominga Patrick PR - Last Filed: 07/29/22 18:03> Cardio Rate: regular rate <SILVERIO Dunlap - Last Filed: 07/29/22 18:03> Heart sounds: S1 normal heart sound present and S2 normal heart sound present <SILVERIO Dunlap - Last Filed: 07/29/22 18:03> GI Inspection: Yes normal to inspection <SILVERIO Dunlap - Last Filed: 07/29/22 18:03> Palpation (GI): Soft to palpation, Tenderness to palpation present (GI) (diffusely) with no rebound tenderness, no guarding and not rigid <SILVERIO Dunlap - Last Filed: 07/29/22 18:03> Skin Rashes: no rashes <SILVERIO Dunlap - Last Filed: 07/29/22 18:03> Wounds: no wounds <SILVERIO Dunlap - Last Filed: 07/29/22 18:03> Neuro General: patient oriented x3, tone normal, moves all extremities, no meningeal signs, no focal motor deficits and CN's II-XI intact bilaterally <SILVERIO Dunlap - Last Filed: 07/29/22 18:03> Motor exam (neuro): 5/5 motor strength present throughout <SILVERIO Dunlap - Last Filed: 07/29/22 18:03> Extrem General: Yes normal to inspection, Yes no pedal edema and Yes no calf tenderness <SILVERIO Dunlap - Last Filed: 07/29/22 18:03> Course Course Course Narrative: XR chest 1V IMPRESSION: No acute abnormality of the chest. ? CT abdomen pelvis wo IV con IMPRESSION: 1.? No acute abnormality the abdomen or pelvis. 2.? Diverticulosis of colon. No acute abnormality of the bowel. 3.? 1.8 cm fluid density of the endometrial cavity of the uterus. Recommend pelvic ultrasound for further evaluation. 4.? Status post cholecystectomy. 5.? Small pericardial effusion. Minimal ? Fleischner guidelines were followed. >> pelvic ultrasound ordered for further evaluation of fluid density -1755--chronic leukopenia. patient's H&H 7.0/21.2 > patient with known high risk MDS, type & screen and 1 unit RBCs ordered. Patient's consent is signed and in chart -lactic acid 1.9 -1800--ED care transferred to SILVERIO Hidalgo pending labs, UA, COVID-19/influenza/RSV, ultrasound, and admission <SILVERIO Dunlap - Last Filed: 07/29/22 18:03> Reevaluation(s) Reevaluation #1: Chemistry with no acute electrolyte abnormalities requiring intervention. CT of the abdomen pelvis with no acute abnormality in the abdomen or pelvis, diverticulosis is noted. 1.8 cm fluid-filled density of the endometrial cavity of the uterus, pelvic ultrasound obtained. Pelvic ultrasound showing fluid distending the endometrial cavity this is mildly complex. No hyperemia on color Doppler. OBGYN was consulted who states that this can be followed on an outpatient basis no need for emergent treatment at this time. Patient will be admitted to the hospital for symptomatic bradycardia, and anemia <SILVERIO Queen - Last Filed: 07/29/22 21:42> Time: 21:41 <SILVERIO Queen - Last Filed: 07/29/22 21:42> Medications Administered Discontinued Medications Generic Name Dose Route Start Last Admin Trade Name Freq PRN Reason Stop Dose Admin Sodium Chloride 1,000 mls @ 999 mls/hr 07/29/22 16:45 07/29/22 18:19 Ns IV 07/29/22 17:45 Infused .Q1H1M NELIDA Infusion Ondansetron HCl 4 mg 07/29/22 16:43 07/29/22 17:04 Ondansetron Hcl 4 Mg/2 Ml Vial IVPUSH 07/29/22 16:44 4 mg ONCE ONE Administration <SILVERIO Dunlap - Last Filed: 07/29/22 18:03> Medications Administered Discontinued Medications Generic Name Dose Route Start Last Admin Trade Name Freq PRN Reason Stop Dose Admin Sodium Chloride 1,000 mls @ 999 mls/hr 07/29/22 16:45 07/29/22 18:19 Ns IV 07/29/22 17:45 Infused .Q1H1M NELIDA Infusion Ondansetron HCl 4 mg 07/29/22 16:43 07/29/22 17:04 Ondansetron Hcl 4 Mg/2 Ml Vial IVPUSH 07/29/22 16:44 4 mg ONCE ONE Administration <SILVERIO Queen - Last Filed: 07/29/22 21:42> Medical Decision Making Medical Decision Making MDM Narrative: 87-year-old female with a past medical history of aortic stenosis, CML, essential tremor, hypothyroid, ALTAGRACIA, proximal AFib not on anticoagulation, Parkinson's, anemia, BIBA from [facility] for suspected bowel obstruction, patient was constipated, given OTC medications, reports last BM this morning, however on EMS arrival patient nauseous and vomiting, became bradycardic in the 20s and had syncopal episode. On exam pale, lungs CTA, abdomen soft diffusely tender, no rebound or guarding, no pedal edema, no focal deficits. Heart rate improved, 76 on EKG Plan: EKG, labs, UA, CXR, CT abdomen/pelvis, IVF, orthostatics, admission <SILVERIO Dunlap - Last Filed: 07/29/22 18:03> Differential Diagnoses: Differential diagnosis (as above) <SILVERIO Dunlap - Last Filed: 07/29/22 18:03> Lab Attestation: I reviewed the patient's lab results. <SILVERIO Dunlap - Last Filed: 07/29/22 18:03> Independent interpretation of EKG, rhythm strip, radiology study: Independent interp EKG,rhythm strip, radiology study I performed an independent interpretation of the: EKG My interpretation is EKG sinus rhythm with 1st degree AV block at a rate of 76. Pr interval 212. Inverted T-wave in V1, Q-wave in lead 3. No STEMI <SILVERIO Dunlap - Last Filed: 07/29/22 18:03> Independent historian (e.g., spouse, EMS, friend): Independent historian (e.g., spouse, EMS, friend) Clinical information obtained from an independent historian. History obtained from or confirmed by: EMS <SILVERIO Dunlap - Last Filed: 07/29/22 18:03> Chronic conditions affecting care (e.g., diabetes, HTN): Chronic conditions affecting care (e.g., diabetes, HTN) (Aortic stenosis, AFib, COPD, Parkinson's) <SILVERIO Dunlap - Last Filed: 07/29/22 18:03> Critical Care Time Critical Care Time Critical Care Time: Yes <SILVERIO Dunlap - Last Filed: 07/29/22 18:03> Total Critical Care Time: 40 <SILVERIO Dunlap - Last Filed: 07/29/22 18:03> Attestation: I have personally provided critical care time exclusive of time spent on separately billable procedures. Time includes review of lab data, radiology results, discussion with consultants, and monitoring for potential decompensation. Intervention performed as documented. <SILVERIO Dunlap - Last Filed: 07/29/22 18:03> Discharge Plan Discharge Clinical Impression: Syncope, Bradycardia, Acute on chronic anemia <SILVERIO Dunlap - Last Filed: 07/29/22 18:03> Patient Disposition: Admitted As Inpatient <SILVERIO Dunlap - Last Filed: 07/29/22 18:03>
--- NOTE | 2022-07-29 16:45 | MHC.EDTECH ---
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
[2022-07-29] MEDS: 0.9 % Sodium Chloride 1,000 ML 999 ML IV (17:04)
[2022-07-29] MEDS: ondansetron HCL 4 MG/2 ML VIAL IVPUSH (17:04)
--- NOTE | 2022-07-29 17:37 | MHC.EDTECH ---
pt was hooked up to bus driver/monitor by this pct ,blood draw and sars swab done and send to lab ,provider oniel said to hold off on orthostatics vitals ,rn dominick is aware .
[2022-07-29 17:44] LABS: INTERNATIONAL NORM RATIO 1.1 (0.9-1.1)
[2022-07-29 17:48] LABS: Hematocrit 21.2 % (37.0-47.0); Mean Corpuscular Hemoglobin 29.5 pg (27.0-33.0); Mean Corpuscular Volume 89.5 fL (80.0-98.0); Mean Platelet Volume 12.6 fL (9.4-12.3); NRBC Pct Auto 0.7 /100WBC (0.0-0.2); Platelet Count 107 X10*3/uL (160-400); Red Blood Count 2.37 X10*6/uL (4.20-5.50); Red Cell Distribution Width 15.4 % (11.0-16.0); White Blood Count 2.9 X10*3/uL (4.8-10.8)
[2022-07-29 17:51] LABS: Lactic Acid 1.9 mmol/L (0.5-2.0)
[2022-07-29 17:59] LABS: B Type Natriuretic Peptide 110 pg/mL (<100)
[2022-07-29 18:00] LABS: Troponin-I High Sensitivity < 3.5 ng/L (<3.5-17.0)
[2022-07-29 18:03] LABS: Alanine Aminotransferase < 6 U/L (0-31); Albumin Level 3.8 g/dL (3.5-5.0); Alkaline Phosphatase 111 U/L (39-117); Anion Gap 14 (12-20); Aspartate Amino Transferase 10 U/L (5-31); Bilirubin Direct 0.2 mg/dL (0.0-0.5); Bilirubin Total 0.4 mg/dL (0.0-1.0); Blood Urea Nitrogen 25 mg/dL (9-16); Calcium 9.2 mg/dL (8.4-10.2); Carbon Dioxide 23 mmol/L (22-29); Chloride 101 mmol/L (96-108); Creatinine Clr Calc Pharmacy 37.4; Estimated Glomerular Filt Rate > 60; Glucose Random 118 mg/dL (60-115); Lipase 18 U/L (8-78); Magnesium 2.4 mg/dL (1.6-2.6); Potassium 4.6 mmol/L (3.3-5.1); Sodium 133 mmol/L (135-145); Total Protein 7.2 g/dL (6.5-8.0)
[2022-07-29 18:14] LABS: Band Neutrophils Percent 5 % (3-5); Eosinophils Percent Manual 1 % (0-4); Large Platelet PRESENT; Lymphocytes Absolute Manual 1.1 X10*3/uL (1.2-4.9); Lymphocytes Percent Manual 38 % (20-40); Macrocytosis 1+ (5-14) /OIF; Monocytes Absolute Manual 0.7 X10*3/uL (0.1-1.2); Monocytes Percent Manual 25 % (2-11); Neutrophils Percent Manual 31 % (45-73); Ovalocytes 1+ (5-14) /OIF; Platelet Estimate SLIGHTLY DECREASED (NORMAL); Platelet Morphology Comment NORMAL; RBC Morphology NOTED
[2022-07-29 18:17] LABS: Influenza A PCR NEGATIVE (Negative); Influenza B PCR NEGATIVE (Negative); Resp Syncy Virus RNA Qual PCR NEGATIVE (Negative); SARS COV2 PCR INHOUSE NEGATIVE (Negative)
--- NOTE | 2022-07-29 18:20 | PC.NURSE ---
unable to complete orthostatic vitals at this time as pt has cardiac pauses when she vasovagals with vomiting. provider Dominga hilario
--- NOTE | 2022-07-29 18:43 | PC.NURSE ---
phlebotomy at bedside to assist with type and screen as pt is difficult poke.
--- NOTE | 2022-07-29 19:18 | PC.NURSE ---
report received from GEETHA Adams pt is alert and oriented resting in bed no signs of acute distress notice breathing equally unlabored
--- NOTE | 2022-07-29 20:00 | MHC.EDTECH ---
pt was assisted unto bed marmolejo ,pt voided small amount of dark yellow urine ,urine sample send to lab .
[2022-07-29 20:42] LABS: Appearance Urine Hazy; Color Urine Yellow; Glucose Urine UA Negative (Negative); Leukocyte Esterase Urine Small (1+) (Negative); Nitrite Urine Negative (Negative); UMIC TRIGGER UACC YES; Urine Blood Negative (Negative); Urine Ketones Trace mg/dL (Negative); Urine Protein Negative (Neg-Trace)
[2022-07-29 21:08] LABS: Bacteria Urine 4+ (None Seen); Other Crystals Urine Present; RBC Urine >20 /HPF (0-2); UACC Culture Trigger YES; WBC Urine >50 /HPF (0-5)
--- NOTE | 2022-07-29 21:52 | PC.NURSE ---
Patient informed me that she needed to urinate. When placing the purewick, noticed that patient was soiled. Linens changed and patient cleaned. Purewick is in place.
--- NOTE | 2022-07-29 22:26 | PC.NURSE ---
Patient resting quietly. No respiratory distress. Speaking in full sentences. Observed that patient was able to answer questions appropriately when Dr Yung inquiring about her med hx.
--- NOTE | 2022-07-29 22:33 | PM.IMHP ---
History of Present Illness Date of Service: 07/29/22 Chief Complaint: Syncope This is a 87-year-old female resident of [facility] with pertinent history of atrial fibrillation, essential tremor, Parkinson's disease, hypothyroidism was sent from [facility] for evaluation of?syncope. Patient is a poor historian. States that she passed out for few seconds, unclear what was she is doing at that time. Denies chest discomfort, palpitations, dizziness or lightheadedness prior to the episode. It was sudden onset. As per chart review, EMS noted the patient's heart rate to be 20 to 30s upon arrival. Also noted a sinus pause. As per correction patient has been constipated but she reports a bowel movement this morning. Does have a history of blood transfusions due to MDS. Patient denies fever, chills, chest discomfort, palpitation, shortness of breath abdominal pain, hematochezia, melena, hematemesis, hematuria or changes in bowel habits. Does endorse urinary hesitancy and history of UTI. In the emergency department, patient in normal sinus rhythm with first-degree AV block with hemoglobin 7 Review of Systems Constitutional: Constitutional: Reports no additional constitutional complaints Cardiovascular: Cardiovascular: Reports no additional cardiovascular complaints Respiratory: Respiratory: Reports no additional respiratory complaints Gastrointestinal: Gastrointestinal: Reports no additional gastrointestinal complaints Genitourinary: Genitourinary: Reports urinary hesitancy ON LICENSE OF [facility] Medical History Abnormal brain MRI Aortic stenosis CML (chronic myelocytic leukemia) Essential tremor (~06/19/22) Hypothyroid Obstructive sleep apnea PAF (paroxysmal atrial fibrillation) Parkinson's disease Family History Mother Alzheimer's dementia Diverticulitis Father Cancer Surgical History Hx of cholecystectomy Hx of total knee replacement Social History Household Members: Other Housing: Residential Do you presently have visiting nurse or other home services: No Alcohol intake: never Patient Tobacco Use Status: Former Tobacco user Quit Date: 1991 Smoked in Last 30 Days: No Use of substances other than those prescribed or required for medical reasons: No Advance Directives: Yes Advance Directives on File: Yes Advance Directives Date on File: 06/27/22 Meds Allergies Allergy/AdvReac Type Severity Reaction Status Date / Time vancomycin Allergy Mild unknown Verified 06/20/22 13:07 Active Medications: Current Medications Acetaminophen (Acetaminophen 325 Mg Tablet) 650 mg PO Q6H PRN PRN Reason: Pain, Mild (Pain Scale 1-3) Bisacodyl (Bisacodyl 10 Mg Supp.Rect) 10 mg HI ONCE ONE Stop: 07/29/22 22:33 Melatonin (Melatonin 3 Mg Tablet) 6 mg PO BEDTIME PRN PRN Reason: Insomnia Ondansetron HCl (Ondansetron Hcl 4 Mg/2 Ml Vial) 4 mg IVPUSH Q8H PRN PRN Reason: Nausea and Vomiting Sodium Chloride (0.9 % Sodium Chloride Flush 3 Ml Syringe) 3 ml IVFLUSH [facility] Medications Medication Instructions Recorded Confirmed Last Taken Type primidone 50 mg tablet 100 mg PO BEDTIME 11/02/21 06/19/22 Unknown History gabapentin 100 mg capsule 200 mg PO BEDTIME 04/19/22 06/19/22 Unknown History lactulose 10 gram/15 mL oral 15 ml PO Q24H PRN Constipation 04/19/22 06/19/22 Unknown History solution lidocaine 5 % topical patch 1 patch topical DAILY 04/19/22 06/19/22 Unknown History montelukast 10 mg tablet 10 mg PO DAILY 04/19/22 06/19/22 Unknown History omeprazole 20 mg capsule,delayed 20 mg PO DAILY 04/19/22 06/19/22 Unknown History release ondansetron 4 mg disintegrating 4 mg PO Q8H PRN Nausea 04/19/22 06/19/22 Unknown History tablet ropinirole 3 mg tablet 1.5 mg PO TID 04/19/22 06/19/22 Unknown History sennosides 8.6 mg capsule (senna) 8.6 mg PO BEDTIME 04/19/22 06/19/22 Unknown History Saccharomyces boulardii 1 cap PO BID 06/19/22 06/19/22 Unknown History acetaminophen 325 mg tablet 975 mg PO Q8H 06/19/22 06/19/22 Unknown History ascorbic acid (vitamin C) 500 mg 500 mg PO DAILY 06/19/22 06/19/22 Unknown History tablet carbidopa ER 23.75 mg-levodopa 95 2 cap PO TID 06/19/22 06/19/22 Unknown History mg capsule,extended release (Rytary) carboxymethylcellulose sodium 1 % 1 drp ophthalmic (eye) BID 06/19/22 06/19/22 Unknown History eye drops carboxymethylcellulose sodium 1 % 1 drp ophthalmic (eye) Q12H PRN 06/19/22 06/19/22 Unknown History eye drops Dry Eye(S) docusate sodium 100 mg capsule 100 mg PO BID 06/19/22 06/19/22 Unknown History hydrocortisone 1 % topical cream 1 appl topical Q24H PRN Rash 06/19/22 06/19/22 Unknown History levothyroxine 100 mcg tablet 100 mcg PO DAILY 06/19/22 06/19/22 Unknown History melatonin 5 mg tablet 5 mg PO BEDTIME 06/19/22 06/19/22 Unknown History menthol 0.44 %-zinc oxide 20.6 % 1 appl topical BID 06/19/22 06/19/22 Unknown History topical ointment (Calmoseptine) midodrine 5 mg tablet 5 mg PO TID 06/19/22 06/19/22 Unknown History sennosides 8.6 mg tablet (senna) 17.2 mg PO Q24H PRN Constipation 06/19/22 06/19/22 Unknown History umeclidinium 62.5 mcg-vilanterol 1 inh inhalation DAILY 06/19/22 06/19/22 Unknown History 25 mcg/actuation powdr for inhalation (Anoro Ellipta) Physical Exam Vital Signs and Narrative: Vital Signs: Last Vital Signs Temp 97.8 F 07/29/22 22:23 Pulse 76 07/29/22 22:23 Resp 10 L 07/29/22 22:23 BP 127/54 L 07/29/22 22:23 Pulse Ox 99 07/29/22 22:23 O2 Del Method 07/29/22 22:23 BMI result Body Mass Index 17.4 Elderly female lying in bed in no distress Neck supple, no JVD Regular rate and rhythm, S1-S2 heard Regular breath sounds bilaterally, no wheezing or crackles appreciated Abdomen soft nontender, no guarding, no rigidity Patient is awake, alert and oriented person and place, disoriented to time ; no focal motor deficits Psych: Normal mood No pedal edema Results Labs CBC and Chem 7: 07/29/22 17:34 07/29/22 17:34 Labs: Laboratory Results - last 24 hr 07/29/22 07/29/22 07/29/22 17:34 17:34 17:34 MCV 89.5 MCH 29.5 MCHC 33.0 RDW 15.4 Plt Count 107 L MPV 12.6 H Immature Gran % (Auto) Cancelled Neut % (Auto) Cancelled Lymph % (Auto) Cancelled [place] % (Auto) Cancelled Eos % (Auto) Cancelled Baso % (Auto) Cancelled Lymph # (Auto) Cancelled [place] # (Auto) Cancelled Eos # (Auto) Cancelled Baso # (Auto) Cancelled Abs Immat Gran (auto) Cancelled Absolute Neuts (auto) Cancelled Absolute Nucleated RBC 0.020 H Nucleated RBC % (auto) 0.7 H Neutrophils % (Manual) 31 L Band Neutrophils % 5 Lymphocytes % (Manual) 38 Monocytes % (Manual) 25 H Eosinophils % (Manual) 1 Abs Neuts (Manual) 1.0 L Lymphocytes # (Manual) 1.1 L Monocytes # (Manual) 0.7 Platelet Estimate SLIGHTLY DECREASED Large Platelets PRESENT Plt Morphology Comment NORMAL RBC Morphology NOTED Macrocytosis 1+ (5-14) Ovalocytes 1+ (5-14) PT 13.0 INR 1.1 Anion Gap 14 Estim Creat Clear Calc 37.4 Estimated GFR > 60 Random Glucose 118 H Lactic Acid Calcium 9.2 D Magnesium 2.4 Total Bilirubin 0.4 Direct Bilirubin 0.2 AST 10 ALT < 6 Alkaline Phosphatase 111 Troponin I High Sens B-Natriuretic Peptide Total Protein 7.2 Albumin 3.8 Lipase 18 Urine Color Urine Appearance Urine pH Ur Specific [place] Urine Protein Urine Glucose (UA) Urine Ketones Urine Blood Urine Nitrite Ur Leukocyte Esterase Urine RBC Urine WBC Ur Squamous Epith Cells Other Crystals Urine Bacteria Hyaline Casts Influenza Type A (PCR) Influenza Type B (PCR) RSV RNA Qual (PCR) SARS-CoV-2 RNA (RT-PCR) Blood Type Antibody Screen Crossmatch (AHG) 07/29/22 07/29/22 07/29/22 17:34 17:34 17:34 MCV MCH MCHC RDW Plt Count MPV Immature Gran % (Auto) Neut % (Auto) Lymph % (Auto) [place] % (Auto) Eos % (Auto) Baso % (Auto) Lymph # (Auto) [place] # (Auto) Eos # (Auto) Baso # (Auto) Abs Immat Gran (auto) Absolute Neuts (auto) Absolute Nucleated RBC Nucleated RBC % (auto) Neutrophils % (Manual) Band Neutrophils % Lymphocytes % (Manual) Monocytes % (Manual) Eosinophils % (Manual) Abs Neuts (Manual) Lymphocytes # (Manual) Monocytes # (Manual) Platelet Estimate Large Platelets Plt Morphology Comment RBC Morphology Macrocytosis Ovalocytes PT INR Anion Gap Estim Creat Clear Calc Estimated GFR Random Glucose Lactic Acid 1.9 Calcium Magnesium Total Bilirubin Direct Bilirubin AST ALT Alkaline Phosphatase Troponin I High Sens < 3.5 B-Natriuretic Peptide 110 H Total Protein Albumin Lipase Urine Color Urine Appearance Urine pH Ur Specific [place] Urine Protein Urine Glucose (UA) Urine Ketones Urine Blood Urine Nitrite Ur Leukocyte Esterase Urine RBC Urine WBC Ur Squamous Epith Cells Other Crystals Urine Bacteria Hyaline Casts Influenza Type A (PCR) Influenza Type B (PCR) RSV RNA Qual (PCR) SARS-CoV-2 RNA (RT-PCR) Blood Type Antibody Screen Crossmatch (AHG) 07/29/22 07/29/22 07/29/22 17:34 18:53 20:03 MCV MCH MCHC RDW Plt Count MPV Immature Gran % (Auto) Neut % (Auto) Lymph % (Auto) [place] % (Auto) Eos % (Auto) Baso % (Auto) Lymph # (Auto) [place] # (Auto) Eos # (Auto) Baso # (Auto) Abs Immat Gran (auto) Absolute Neuts (auto) Absolute Nucleated RBC Nucleated RBC % (auto) Neutrophils % (Manual) Band Neutrophils % Lymphocytes % (Manual) Monocytes % (Manual) Eosinophils % (Manual) Abs Neuts (Manual) Lymphocytes # (Manual) Monocytes # (Manual) Platelet Estimate Large Platelets Plt Morphology Comment RBC Morphology Macrocytosis Ovalocytes PT INR Anion Gap Estim Creat Clear Calc Estimated GFR Random Glucose Lactic Acid Calcium Magnesium Total Bilirubin Direct Bilirubin AST ALT Alkaline Phosphatase Troponin I High Sens B-Natriuretic Peptide Total Protein Albumin Lipase Urine Color Yellow Urine Appearance Hazy Urine pH 6.0 Ur Specific [place] 1.020 Urine Protein Negative Urine Glucose (UA) Negative Urine Ketones Trace Urine Blood Negative Urine Nitrite Negative Ur Leukocyte Esterase Small (1+) H Urine RBC >20 H Urine WBC >50 H Ur Squamous Epith Cells 3-5 Other Crystals Present Urine Bacteria 4+ Hyaline Casts 3-5 Influenza Type A (PCR) NEGATIVE Influenza Type B (PCR) NEGATIVE RSV RNA Qual (PCR) NEGATIVE SARS-CoV-2 RNA (RT-PCR) NEGATIVE Blood Type O Positive Antibody Screen NEGATIVE Crossmatch (AHG) See Detail Imaging Radiologist's Impressions: Impressions Chest X-Ray 07/29/22 17:02 IMPRESSION: No acute abnormality of the chest. Abdomen/Pelvis CT 07/29/22 17:08 IMPRESSION: 1. No acute abnormality the abdomen or pelvis. 2. Diverticulosis of colon. No acute abnormality of the bowel. 3. 1.8 cm fluid density of the endometrial cavity of the uterus. Recommend pelvic ultrasound for further evaluation. 4. Status post cholecystectomy. 5. Small pericardial effusion. Minimal Fleischner guidelines were followed. Pelvis Ultrasound 07/29/22 18:38 IMPRESSION: 1. There is fluid distending the endometrial cavity. This is mildly complex. No hyperemia on color Doppler. Consider ARCHITECTURAL DRAFTSPERSON consult for further evaluation. 2. No uterine mass. 3. Neither ovary is visualized. No adnexal abnormality. 4. No fluid in the cul-de-sac. Assessment and Plan (1) Syncope: Status: Acute (2) Bradycardia: Status: Acute (3) Acute on chronic anemia: Status: Acute Plan This is a 87-year-old female resident of [facility] with pertinent history of atrial fibrillation, essential tremor, Parkinson's disease, hypothyroidism was sent from correction for evaluation of?syncope. #. Syncope -will admit with lunchroom monitor. concern for syncope due to bradycardia, heart rate noted to be in the 20s-30s as per EMS. Patient was initiated on digoxin during previous admission for atrial fibrillation. Consulting Cardiology for assistance. #.? 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 Will transfuse PRBC and monitor. No hematuria, hematemesis, melena or hematochezia #. Questionable constipation with moderate stool in colon on imaging -administering bisacodyl suppository #. Imaging with 1.8 cm fluid density of endometrial cavity: Dr. Lowe OBGYItz was consulted from the ER who recommended outpatient evaluation and management #. Acute UTI: Previous culture with E coli, initiating IV Rocephin #. Significant -Noted on Echo during previous admission. Conservative management as per cardiology #.? Dysphagia due to Parkinson's disease -on modified diet as below #.? Hypothyroidism -continue Synthroid. #.? COPD -continue home inhalers #.? Paroxysmal atrial fibrillation -Not on anticoagulation Med rec pending DVT prophylaxis:? Mechanical Chopped advanced diet with nectar thick fluids Do not intubate.? Discussed with patient at bedside and she stated that she would like to be resuscitated but not intubated. Time Spent With Patient Time: Total time managing care of this patient today ____ minutes. Quality Stroke Does the patient have a stroke diagnosis?: No VTE Prior VTE?: No VTE Risk Level:: Medical - moderate - high VTE Device Contraindication: N/A - Device Ordered VTE Drug Contraindication: Treatment Not Indicated
[2022-07-30] VITALS (12 sets, daily range): BP systolic 122–149; BP diastolic 58–77; PULSE 64–92; RESP 10–18; TEMP 36.7–37.6; O2SAT 94–99
[2022-07-30] MEDS: bisacodyL 10 MG SUPP.RECT PR (00:13)
[2022-07-30] MEDS: cefTRIAXone sodium 1 GM in 0.9 % Sodium Chloride 50 ML IV ×2 (00:13→21:32)
--- NOTE | 2022-07-30 02:05 | MHC.EDTECH ---
0200 ROUNDING DONE PT VITALS SIGN TAKEN ,PATIENT PUREWICK WAS NOT WORKING ,SO PATIENT WAS WET ,INCONTINENCE CARE GIVEN ,BEDDING CHANGE ,NEW PUREWICK IN PLACE ,PT CALL ROTHMAN WITHIN REACH ,3 WARM BLANKETS GIVEN .
--- NOTE | 2022-07-30 02:05 | PC.NURSE ---
Patient resting quietly. No respiratory distress. No apparent distress. Linens changed and patient cleaned.
--- NOTE | 2022-07-30 02:06 | PC.NURSE ---
Patien denies pain at this time.
[2022-07-30 02:07] LABS: OBS Int Ctl Valid YES; OBS1 NEGATIVE (NEGATIVE)
--- NOTE | 2022-07-30 03:00 | PC.NURSE ---
Unit of blood was fully transfused.
[2022-07-30] MEDS: Acetaminophen 325 MG TABLET 650 MG PO ×2 (03:32→14:08)
--- NOTE | 2022-07-30 04:44 | PC.NURSE ---
Pain assessed. Pt denies any pain. No longer c/o headache after tylenol admin. Resting quietly. No apparent distress.
--- NOTE | 2022-07-30 05:21 | MHC.EDTECH ---
pt had a bowel movement. GEETHA Acosta and this pct cleaned pt and changed eladio. replaced periwick. gave pt a warm blanket. will continue to monitor
[2022-07-30 06:50] LABS: Hematocrit 24.7 % (37.0-47.0); Hemoglobin 8.3 g/dl (12.0-16.0); Mean Corpuscular HGB Conc 33.6 g/dl (31.0-35.0); Mean Corpuscular Hemoglobin 29.9 pg (27.0-33.0); Mean Corpuscular Volume 88.8 fL (80.0-98.0); Mean Platelet Volume 12.3 fL (9.4-12.3); Red Blood Count 2.78 X10*6/uL (4.20-5.50); Red Cell Distribution Width 14.5 % (11.0-16.0); White Blood Count 2.8 X10*3/uL (4.8-10.8)
[2022-07-30 06:51] LABS: Platelet Count 91 X10*3/uL (160-400)
[2022-07-30 07:18] LABS: Anion Gap 10 (12-20); Blood Urea Nitrogen 19 mg/dL (9-16); Carbon Dioxide 23 mmol/L (22-29); Chloride 105 mmol/L (96-108); Creatinine Clr Calc Pharmacy 47.4; Estimated Glomerular Filt Rate > 60; Glucose Random 81 mg/dL (60-115); Potassium 4.4 mmol/L (3.3-5.1); Sodium 134 mmol/L (135-145)
[2022-07-30 07:19] LABS: Band Neutrophils Percent 5 % (3-5); Eosinophils Percent Manual 1 % (0-4); Lymphocytes Absolute Manual 1.2 X10*3/uL (1.2-4.9); Lymphocytes Percent Manual 43 % (20-40); Metamyelocytes Absolute 0.1 X10*3/uL; Metamyelocytes Percent 2 %; Monocytes Absolute Manual 0.8 X10*3/uL (0.1-1.2); Monocytes Percent Manual 29 % (2-11); Neutrophils Absolute Manual 0.7 X10*3/uL (2.0-8.3); Neutrophils Percent Manual 20 % (45-73)
[2022-07-30 07:22] LABS: Acanthocytes 1+ (0-2) /OIF; Large Platelet PRESENT; Macrocytosis 1+ (5-14) /OIF; Ovalocytes 1+ (5-14) /OIF; Platelet Estimate DECREASED (NORMAL); Platelet Morphology Comment NOTED; RBC Morphology NOTED; Schistocytes 1+ (0-2) /OIF; Tear Drop Cells 1+ (0-2) /OIF
[2022-07-30 07:23] LABS: Burr Cells 1+ (0-2) /OIF
[2022-07-30 07:28] LABS: Calcium 8.6 mg/dL (8.4-10.2)
--- NOTE | 2022-07-30 08:28 | PHA.MEDREC ---
Pharmacy Consult ? Medication Reconciliation Pharmacy has completed the medication reconciliation. Pt with list from facility
--- NOTE | 2022-07-30 11:16 | PC.NURSE ---
Pt alert and oriented, resting on and off throughout morning. Warm blanket provided and call stevenson within reach.
--- NOTE | 2022-07-30 11:59 | PM.CNCAR ---
History of Present Illness History of Present Illness Date of Service: 07/30/22 Requesting physician: Burt Yung Consult reason: other (Syncope) Chief complaint: syncope Narrative: I was consulted to see Ximena in cardiology consultation today for reported syncopal episode. [facility] as she has not been able to walk after a pelvic fracture about 6 months ago. Last admission was in June because of rib pain. At that time she had an echocardiogram which showed possible severe aortic stenosis with paradoxical low-flow with low stroke volume with mean gradient of 18 mmHg. 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 She has prior history of Parkinson's disease, frailty, frequent falls, paroxysmal atrial fibrillation, was atrial fibrillation last visit. She has minimal functionality related to her fall and currently shelter status. Patient was in usual state of health yesterday says she was constipated and was having some throwing up episodes question bring up phlegm. The staff was assisting a noted that she rolled her eyes backwards and had loss of consciousness. EMS was called. Reported noted heart rate of 20 beats per minute although I do not have any recordings of such. Since she has been your heart rate is been normal sinus rhythm with good control. She has been monitored overnight without any significant arrhythmias. She also noted to be significantly anemic, has history of myelodysplastic syndrome requiring transfusion. She has been transfused overnight as per her. She denies any bleeding issues. Says was on blood thinners but as per the note she is currently not taking any oral anticoagulants. She is on midodrine for low blood pressure in the past. Review of Systems Constitutional: Constitutional: Reports lethargy and Reports weakness Eyes: Eyes: Reports no additional eye complaints Cardiovascular: Cardiovascular: Denies chest pain, Reports syncope, Denies rapid heart rate, Denies leg edema, Denies palpitations and Denies dyspnea Respiratory: Respiratory: Reports no additional respiratory complaints and Denies dyspnea Gastrointestinal: Gastrointestinal: Reports no additional gastrointestinal complaints Genitourinary: Genitourinary: Reports no additional female genitourinary complaints Musculoskeletal: Musculoskeletal: Reports no additional musculoskeletal complaints Integumentary/Breasts: Skin/Breast: Reports system reviewed and no additional complaints, except as docu Neurologic: Reports system reviewed and no additional complaints, except as documented, Reports syncope and Reports weakness Psychiatric: Psychiatric: Reports no additional psychiatric complaints Endocrine: Endocrine: Reports no additional endocrine complaints and Denies palpitations [facility] Past Medical History Medical History Abnormal brain MRI Aortic stenosis CML (chronic myelocytic leukemia) Essential tremor (~06/19/22) Hypothyroid Obstructive sleep apnea PAF (paroxysmal atrial fibrillation) Parkinson's disease Family History Family History Mother Alzheimer's dementia Diverticulitis Father Cancer Surgical History Surgical History Hx of cholecystectomy Hx of total knee replacement Social History Social History Household Members: Other Housing: [facility] Do you presently have visiting nurse or other home services: No Alcohol intake: never Patient Tobacco Use Status: Former Tobacco user Quit Date: 1991 Smoked in Last 30 Days: No Use of substances other than those prescribed or required for medical reasons: No Advance Directives: Yes Advance Directives on File: Yes Advance Directives Date on File: 06/27/22 Meds Allergies Allergy/AdvReac Type Severity Reaction Status Date / Time vancomycin Allergy Mild unknown Verified 06/20/22 13:07 Active Medications: Current Medications Acetaminophen (Acetaminophen 325 Mg Tablet) 650 mg PO Q6H PRN PRN Reason: Pain, Mild (Pain Scale 1-3) Last Admin: 07/30/22 03:32 Dose: 650 mg Albuterol/Ipratropium (Albuterol/Iprat 2.5/0.5mg 3 Ml Ampul.Neb) 3 ml INHALE RQ4H PRN PRN Reason: wheezing Ascorbic Acid (Ascorbic Acid 500 Mg Tablet) 500 mg PO DAILY NELIDA Digoxin (Digoxin 0.125 Mg Tablet) 0.125 mg PO SUMOWETHSA NELIDA Gabapentin (Gabapentin 100 Mg Capsule) 200 mg PO BEDTIME [facility] Ceftriaxone Sodium 1 gm/ (Sodium Chloride) 50 mls @ 100 mls/hr IV Q24H [facility] Last Infusion: 07/30/22 00:57 Dose: Infused Lactulose (Lactulose 20 Gm/30 Ml Solution) 10 gm PO Q24H PRN PRN Reason: Constipation Levothyroxine Sodium (Levothyroxine Sodium 100 Mcg Tablet) 100 mcg PO DAILY@0600 [facility] Melatonin (Melatonin 3 Mg Tablet) 6 mg PO BEDTIME PRN PRN Reason: Insomnia Midodrine (Midodrine Hcl 5 Mg Tablet) 5 mg PO TID [facility] Montelukast Sodium (Montelukast Sodium 10 Mg Tablet) 10 mg PO DAILY [facility] Non-Formulary Medication (Carbidopa-Levodopa [Rytary]) 2 cap PO TID NELIDA Non-Formulary Medication (Carboxymethylcellulose Sodium) 1 drop EYE-BOTH BID NELIDA Non-Formulary Medication (Carboxymethylcellulose Sodium) 1 drop EYE-BOTH Q12H PRN PRN Reason: Dry Eye(S) Non-Formulary Medication (Lidocaine) 1 patch TOPICAL DAILY [facility] Non-Formulary Medication (Melatonin) 6 mg PO BEDTIME [facility] Non-Formulary Medication (Ropinirole) 1.5 mg PO TID [facility] Non-Formulary Medication (Umeclidinium-Vilanterol [Anoro Ellipta]) 1 inhalation INHALE DAILY [facility] Non-Formulary Medication (Urea) 2 packet PO DAILY [facility] Omeprazole (Omeprazole 20 Mg Capsule.Dr) 20 mg PO DAILY@0630 [facility] Ondansetron HCl (Ondansetron Hcl 4 Mg/2 Ml Vial) 4 mg IVPUSH Q8H PRN PRN Reason: Nausea and Vomiting Ondansetron HCl (Ondansetron Odt 4 Mg Tab.Rapdis) 4 mg TRANSLINGU Q8H PRN PRN Reason: Nausea Primidone (Primidone 50 Mg Tablet) 100 mg PO BEDTIME [facility] Sodium Chloride (0.9 % Sodium Chloride Flush 3 Ml Syringe) 3 ml IVFLUSH QSHIFT [facility] Last Admin: 07/30/22 07:22 Dose: Not Given Home Medications Medication Instructions Recorded Confirmed Last Taken Type primidone 50 mg tablet 100 mg PO BEDTIME 11/02/21 07/30/22 Unknown History gabapentin 100 mg capsule 200 mg PO BEDTIME 04/19/22 07/30/22 Unknown History lactulose 10 gram/15 mL oral 15 ml PO Q24H PRN Constipation 04/19/22 07/30/22 Unknown History solution lidocaine 5 % topical patch 1 patch topical DAILY 04/19/22 07/30/22 Unknown History montelukast 10 mg tablet 10 mg PO DAILY 04/19/22 07/30/22 Unknown History omeprazole 20 mg capsule,delayed 20 mg PO DAILY@0630 04/19/22 07/30/22 Unknown History release ondansetron 4 mg disintegrating 4 mg PO Q8H PRN Nausea 04/19/22 07/30/22 Unknown History tablet ropinirole 3 mg tablet 1.5 mg PO TID 04/19/22 07/30/22 Unknown History Saccharomyces boulardii 1 cap PO BID 06/19/22 07/30/22 Unknown History acetaminophen 325 mg tablet 975 mg PO Q8H 06/19/22 07/30/22 Unknown History ascorbic acid (vitamin C) 500 mg 500 mg PO DAILY 06/19/22 07/30/22 Unknown History tablet carbidopa ER 23.75 mg-levodopa 95 2 cap PO TID 06/19/22 07/30/22 Unknown History mg capsule,extended release (Rytary) carboxymethylcellulose sodium 1 % 1 drp ophthalmic (eye) BID 06/19/22 07/30/22 Unknown History eye drops carboxymethylcellulose sodium 1 % 1 drp ophthalmic (eye) Q12H PRN 06/19/22 07/30/22 Unknown History eye drops Dry Eye(S) hydrocortisone 1 % topical cream 1 appl topical Q24H PRN Rash 06/19/22 07/30/22 Unknown History levothyroxine 100 mcg tablet 100 mcg PO DAILY@0600 06/19/22 07/30/22 Unknown History melatonin 5 mg tablet 6 mg PO BEDTIME 06/19/22 07/30/22 Unknown History menthol 0.44 %-zinc oxide 20.6 % 1 appl topical BID 06/19/22 07/30/22 Unknown History topical ointment (Calmoseptine) midodrine 5 mg tablet 5 mg PO TID 06/19/22 07/30/22 Unknown History umeclidinium 62.5 mcg-vilanterol 1 inh inhalation DAILY 06/19/22 07/30/22 Unknown History 25 mcg/actuation powdr for inhalation (Anoro Ellipta) digoxin 125 mcg (0.125 mg) tablet 0.125 mg PO SUMOWETHSA 07/30/22 07/30/22 Unknown History Physical Exam Vital Signs: Vital Signs: Last Vital Signs Temp 98.2 F 07/30/22 04:16 Pulse 84 07/30/22 07:46 Resp 10 L 07/30/22 07:46 BP 140/59 H 07/30/22 07:46 Pulse Ox 99 07/30/22 07:46 O2 Del Method 07/30/22 07:46 BMI result Body Mass Index 17.4 Const: General: cooperative, comfortable, no acute distress, alert and awake Nutritional Appearance: underweight and other (Frail elderly woman) Orientation/consciousness: patient oriented x3 HEENT: Head: Yes normocephalic and Yes atraumatic Neck: Neck: Yes trachea midline and Yes no JVD Resp: Effort & Inspection: decreased respiratory effort Auscultation: clear to auscultation bilaterally Cardio: Jugular venous distension: no JVD Palpation: abnormal PMI displaced PMI Rate: regular rate Rhythm: regular rhythm Heart sounds: S1 normal heart sound present, S2 normal heart sound present and Murmur heart sound present systolic late, decrescendo, crescendo and at the left sternal border GI: Auscultation: normal bowel sounds Skin: General skin exam: no rashes or lesions noted Neuro: General: patient oriented x3 and no focal motor deficits Extrem: General: Yes no clubbing, cyanosis or edema Objective Labs and Meds Result diagrams: 07/30/22 06:36 07/30/22 06:36 Lab results: Laboratory Results - last 24 hr 07/29/22 07/29/22 07/29/22 17:34 17:34 17:34 WBC 2.9 L RBC 2.37 L Hgb 7.0 L* Hct 21.2 L MCV 89.5 MCH 29.5 MCHC 33.0 RDW 15.4 Plt Count 107 L MPV 12.6 H Immature Gran % (Auto) Cancelled Neut % (Auto) Cancelled Lymph % (Auto) Cancelled Gregory % (Auto) Cancelled Eos % (Auto) Cancelled Baso % (Auto) Cancelled Lymph # (Auto) Cancelled Gregory # (Auto) Cancelled Eos # (Auto) Cancelled Baso # (Auto) Cancelled Abs Immat Gran (auto) Cancelled Absolute Neuts (auto) Cancelled Absolute Nucleated RBC 0.020 H Nucleated RBC % (auto) 0.7 H Neutrophils % (Manual) 31 L Band Neutrophils % 5 Lymphocytes % (Manual) 38 Monocytes % (Manual) 25 H Eosinophils % (Manual) 1 Metamyelocytes % Abs Neuts (Manual) 1.0 L Lymphocytes # (Manual) 1.1 L Monocytes # (Manual) 0.7 Metamyelocytes # Platelet Estimate SLIGHTLY DECREASED Large Platelets PRESENT Plt Morphology Comment NORMAL RBC Morphology NOTED Macrocytosis 1+ (5-14) Tear Drop Cells Ovalocytes 1+ (5-14) Manda Cells Acanthocytes (Spur) Schistocytes PT 13.0 INR 1.1 Sodium 133 L Potassium 4.6 Chloride 101 Carbon Dioxide 23 Anion Gap 14 BUN 25 H Creatinine 0.85 Estim Creat Clear Calc 37.4 Estimated GFR > 60 Random Glucose 118 H Lactic Acid Calcium 9.2 D Magnesium 2.4 Total Bilirubin 0.4 Direct Bilirubin 0.2 AST 10 ALT < 6 Alkaline Phosphatase 111 Troponin I High Sens B-Natriuretic Peptide Total Protein 7.2 Albumin 3.8 Lipase 18 Urine Color Urine Appearance Urine pH Ur Specific [place] Urine Protein Urine Glucose (UA) Urine Ketones Urine Blood Urine Nitrite Ur Leukocyte Esterase Urine RBC Urine WBC Ur Squamous Epith Cells Other Crystals Urine Bacteria Hyaline Casts Stool Occult Blood Influenza Type A (PCR) Influenza Type B (PCR) RSV RNA Qual (PCR) SARS-CoV-2 RNA (RT-PCR) Blood Type Antibody Screen Antibody Identification JUDITH, Polyspecific Positive JUDITH Work-up Crossmatch ([facility]) Blood Bank Comment 07/29/22 07/29/22 07/29/22 17:34 17:34 17:34 WBC RBC Hgb Hct MCV MCH MCHC RDW Plt Count MPV Immature Gran % (Auto) Neut % (Auto) Lymph % (Auto) Gregory % (Auto) Eos % (Auto) Baso % (Auto) Lymph # (Auto) Gregory # (Auto) Eos # (Auto) Baso # (Auto) Abs Immat Gran (auto) Absolute Neuts (auto) Absolute Nucleated RBC Nucleated RBC % (auto) Neutrophils % (Manual) Band Neutrophils % Lymphocytes % (Manual) Monocytes % (Manual) Eosinophils % (Manual) Metamyelocytes % Abs Neuts (Manual) Lymphocytes # (Manual) Monocytes # (Manual) Metamyelocytes # Platelet Estimate Large Platelets Plt Morphology Comment RBC Morphology Macrocytosis Tear Drop Cells Ovalocytes [place] Cells Acanthocytes (Spur) Schistocytes PT INR Sodium Potassium Chloride Carbon Dioxide Anion Gap BUN Creatinine Estim Creat Clear Calc Estimated GFR Random Glucose Lactic Acid 1.9 Calcium Magnesium Total Bilirubin Direct Bilirubin AST ALT Alkaline Phosphatase Troponin I High Sens < 3.5 B-Natriuretic Peptide 110 H Total Protein Albumin Lipase Urine Color Urine Appearance Urine pH Ur Specific [place] Urine Protein Urine Glucose (UA) Urine Ketones Urine Blood Urine Nitrite Ur Leukocyte Esterase Urine RBC Urine WBC Ur Squamous Epith Cells Other Crystals Urine Bacteria Hyaline Casts Stool Occult Blood Influenza Type A (PCR) Influenza Type B (PCR) RSV RNA Qual (PCR) SARS-CoV-2 RNA (RT-PCR) Blood Type Antibody Screen Antibody Identification JUDITH, Polyspecific Positive JUDITH Work-up Crossmatch ([facility]) Blood Bank Comment 07/29/22 07/29/22 07/29/22 17:34 18:53 20:03 WBC RBC Hgb Hct MCV MCH MCHC RDW Plt Count MPV Immature Gran % (Auto) Neut % (Auto) Lymph % (Auto) Gregory % (Auto) Eos % (Auto) Baso % (Auto) Lymph # (Auto) Gregory # (Auto) Eos # (Auto) Baso # (Auto) Abs Immat Gran (auto) Absolute Neuts (auto) Absolute Nucleated RBC Nucleated RBC % (auto) Neutrophils % (Manual) Band Neutrophils % Lymphocytes % (Manual) Monocytes % (Manual) Eosinophils % (Manual) Metamyelocytes % Abs Neuts (Manual) Lymphocytes # (Manual) Monocytes # (Manual) Metamyelocytes # Platelet Estimate Large Platelets Plt Morphology Comment RBC Morphology Macrocytosis Tear Drop Cells Ovalocytes Manda Cells Acanthocytes (Spur) Schistocytes PT INR Sodium Potassium Chloride Carbon Dioxide Anion Gap BUN Creatinine Estim Creat Clear Calc Estimated GFR Random Glucose Lactic Acid Calcium Magnesium Total Bilirubin Direct Bilirubin AST ALT Alkaline Phosphatase Troponin I High Sens B-Natriuretic Peptide Total Protein Albumin Lipase Urine Color Yellow Urine Appearance Hazy Urine pH 6.0 Ur Specific [place] 1.020 Urine Protein Negative Urine Glucose (UA) Negative Urine Ketones Trace Urine Blood Negative Urine Nitrite Negative Ur Leukocyte Esterase Small (1+) H Urine RBC >20 H Urine WBC >50 H Ur Squamous Epith Cells 3-5 Other Crystals Present Urine Bacteria 4+ Hyaline Casts 3-5 Stool Occult Blood Influenza Type A (PCR) NEGATIVE Influenza Type B (PCR) NEGATIVE RSV RNA Qual (PCR) NEGATIVE SARS-CoV-2 RNA (RT-PCR) NEGATIVE Blood Type O Positive Antibody Screen NEGATIVE Antibody Identification Inconclusive JUDITH, Polyspecific NEGATIVE Positive JUDITH Work-up TNP Crossmatch ([facility]) See Detail Blood Bank Comment Specimen 07/30/22 07/30/22 07/30/22 02:00 06:36 06:36 WBC 2.8 L RBC 2.78 L Hgb 8.3 L Hct 24.7 L MCV 88.8 MCH 29.9 MCHC 33.6 RDW 14.5 Plt Count 91 L MPV 12.3 Immature Gran % (Auto) Cancelled Neut % (Auto) Cancelled Lymph % (Auto) Cancelled Gregory % (Auto) Cancelled Eos % (Auto) Cancelled Baso % (Auto) Cancelled Lymph # (Auto) Cancelled Gregory # (Auto) Cancelled Eos # (Auto) Cancelled Baso # (Auto) Cancelled Abs Immat Gran (auto) Cancelled Absolute Neuts (auto) Cancelled Absolute Nucleated RBC 0.000 Nucleated RBC % (auto) 0.0 Neutrophils % (Manual) 20 L Band Neutrophils % 5 Lymphocytes % (Manual) 43 H Monocytes % (Manual) 29 H Eosinophils % (Manual) 1 Metamyelocytes % 2 Abs Neuts (Manual) 0.7 L Lymphocytes # (Manual) 1.2 Monocytes # (Manual) 0.8 Metamyelocytes # 0.1 Platelet Estimate DECREASED Large Platelets PRESENT Plt Morphology Comment NOTED RBC Morphology NOTED Macrocytosis 1+ (5-14) Tear Drop Cells 1+ (0-2) Ovalocytes 1+ (5-14) [place] Cells 1+ (0-2) Acanthocytes (Spur) 1+ (0-2) Schistocytes 1+ (0-2) PT INR Sodium 134 L Potassium 4.4 Chloride 105 Carbon Dioxide 23 Anion Gap 10 L BUN 19 H D Creatinine 0.67 Estim Creat Clear Calc 47.4 Estimated GFR > 60 Random Glucose 81 Lactic Acid Calcium 8.6 D Magnesium Total Bilirubin Direct Bilirubin AST ALT Alkaline Phosphatase Troponin I High Sens B-Natriuretic Peptide Total Protein Albumin Lipase Urine Color Urine Appearance Urine pH Ur Specific [place] Urine Protein Urine Glucose (UA) Urine Ketones Urine Blood Urine Nitrite Ur Leukocyte Esterase Urine RBC Urine WBC Ur Squamous Epith Cells Other Crystals Urine Bacteria Hyaline Casts Stool Occult Blood NEGATIVE Influenza Type A (PCR) Influenza Type B (PCR) RSV RNA Qual (PCR) SARS-CoV-2 RNA (RT-PCR) Blood Type Antibody Screen Antibody Identification JUDITH, Polyspecific Positive JUDITH Work-up Crossmatch ([facility]) Blood Bank Comment Imaging Radiologist's impression: Impressions Chest X-Ray 07/29/22 17:02 IMPRESSION: No acute abnormality of the chest. Abdomen/Pelvis CT 07/29/22 17:08 IMPRESSION: 1. No acute abnormality the abdomen or pelvis. 2. Diverticulosis of colon. No acute abnormality of the bowel. 3. 1.8 cm fluid density of the endometrial cavity of the uterus. Recommend pelvic ultrasound for further evaluation. 4. Status post cholecystectomy. 5. Small pericardial effusion. Minimal Fleischner guidelines were followed. Pelvis Ultrasound 07/29/22 18:38 IMPRESSION: 1. There is fluid distending the endometrial cavity. This is mildly complex. No hyperemia on color Doppler. Consider HOME CARE RN consult for further evaluation. 2. No uterine mass. 3. Neither ovary is visualized. No adnexal abnormality. 4. No fluid in the cul-de-sac. Assessment and Plan (1) Syncope: Status: Acute Loss of consciousness consistent with syncope in this elderly woman who was probably constipated and/or nauseous and throwing up. Could be vasovagal syncope. However given her underlying cardiovascular issues with aortic stenosis as well as advanced age possibility of other arrhythmias such as sick sinus syndrome and/or complete heart block is possible especially given her aortic stenosis. This syncope does not appear to be related to aortic stenosis as this was mostly at rest. However she has been deemed not to be a good candidate for aortic valve replacement in the past. She has upcoming appointment with rail transportation tabeler at [facility]. She also is noted to be significantly anemic has been receiving 1 unit of transfusion I would consider on unit of transfusion given her syncopal episode to maintain hematocrit over 30. Also advised to increase fluid intake. If possible measure orthostatic vitals. Continue full disclosure cardiac monitoring to evaluate for cardiac arrhythmias. May be discharged with Holter monitor to assess for any arrhythmias. Overall prognosis is guarded. Will continue to follow with you Time Spent With Patient Time: Total time managing care of this patient today ____ minutes. Procedures Date of Service Date of Service: 07/30/22
--- NOTE | 2022-07-30 12:09 | P.PNIM_ITS ---
Subjective Subjective Date of Service: 07/30/22 Interval History: Seen in follow up for symptomatic bradycardia, syncope Interval histroy: Patient admitted last night. Resting comfortably in bed, no complaints. Denies lightheadedness, sob, palpitations, chest pains. Review of Systems General: No fevers, malaise, unintentional weight loss HEENT: No blurred vision, diplopia Cardiovascular: No chest pain, palpitations, or leg edema Respiratory: No shortness of breath, wheezing, cough GI: No abdominal pain, nausea, vomiting, diarrhe MSK: No myalgia, back pain Neuro: No headaches, weakness, paresthesias, lightheadedness Skin: No rashes or lesions Physical Exam Vital Signs: Vital Signs: Last Vital Signs Temp 98.2 F 07/30/22 04:16 Pulse 84 07/30/22 07:46 Resp 10 L 07/30/22 07:46 BP 140/59 H 07/30/22 07:46 Pulse Ox 99 07/30/22 07:46 O2 Del Method 07/30/22 07:46 BMI result Body Mass Index 17.4 Constitutional - Awake and Alert, No apparent distress Eyes - PERRLA, EOMI Cardiovascular - S1S2, RRR, No edema Respiratory - Normal lung expansion, Normal respiratory effort, No respiratory distress, CTA bilaterally Gastrointestinal - NT / ND; +BS; No rebound or guarding Extremities - no calf tenderness bilaterally, no swelling Skin - Warm/Dry Neurological - Alert & oriented x3 Psychological - Appropriate affect Objective Data Active Medications Acetaminophen (Acetaminophen 325 Mg Tablet) 650 mg PO Q6H PRN PRN Reason: Pain, Mild (Pain Scale 1-3) Last Admin: 07/30/22 03:32 Dose: 650 mg Documented By: NALLELY Albuterol/Ipratropium (Albuterol/Iprat 2.5/0.5mg 3 Ml Ampul.Neb) 3 ml INHALE RQ4H PRN PRN Reason: wheezing Ascorbic Acid (Ascorbic Acid 500 Mg Tablet) 500 mg PO DAILY NELIDA Digoxin (Digoxin 0.125 Mg Tablet) 0.125 mg PO SUMOWETHSA NELIDA Gabapentin (Gabapentin 100 Mg Capsule) 200 mg PO BEDTIME NELIDA Ceftriaxone Sodium 1 gm/ (Sodium Chloride) 50 mls @ 100 mls/hr IV Q24H NELIDA Last Infusion: 07/30/22 00:57 Dose: 0 mls/hr Documented By: NALLELY Lactulose (Lactulose 20 Gm/30 Ml Solution) 10 gm PO Q24H PRN PRN Reason: Constipation Levothyroxine Sodium (Levothyroxine Sodium 100 Mcg Tablet) 100 mcg PO DAILY@0600 [facility] Melatonin (Melatonin 3 Mg Tablet) 6 mg PO BEDTIME PRN PRN Reason: Insomnia Midodrine (Midodrine Hcl 5 Mg Tablet) 5 mg PO TID@0700,1200,1700 [facility] Montelukast Sodium (Montelukast Sodium 10 Mg Tablet) 10 mg PO DAILY [facility] Non-Formulary Medication (Carbidopa-Levodopa [Rytary]) 2 cap PO TID [facility] Non-Formulary Medication (Carboxymethylcellulose Sodium) 1 drop EYE-BOTH BID [facility] Non-Formulary Medication (Carboxymethylcellulose Sodium) 1 drop EYE-BOTH Q12H PRN PRN Reason: Dry Eye(S) Non-Formulary Medication (Lidocaine) 1 patch TOPICAL DAILY [facility] Non-Formulary Medication (Melatonin) 6 mg PO BEDTIME [facility] Non-Formulary Medication (Ropinirole) 1.5 mg PO TID [facility] Non-Formulary Medication (Umeclidinium-Vilanterol [Anoro Ellipta]) 1 inhalation INHALE DAILY [facility] Non-Formulary Medication (Urea) 2 packet PO DAILY [facility] Omeprazole (Omeprazole 20 Mg Capsule.Dr) 20 mg PO DAILY@0630 [facility] Ondansetron HCl (Ondansetron Hcl 4 Mg/2 Ml Vial) 4 mg IVPUSH Q8H PRN PRN Reason: Nausea and Vomiting Ondansetron HCl (Ondansetron Odt 4 Mg Tab.Rapdis) 4 mg TRANSLINGU Q8H PRN PRN Reason: Nausea Primidone (Primidone 50 Mg Tablet) 100 mg PO BEDTIME [facility] Sodium Chloride (0.9 % Sodium Chloride Flush 3 Ml Syringe) 3 ml IVFLUSH QSHIFT NELIDA Last Admin: 07/30/22 07:22 Dose: Not Given Documented By: LAYTON Non-Admin Reason: Patient Asleep Labs CBC & Chem 7: 07/30/22 06:36 07/30/22 06:36 Labs: Laboratory Results - last 24 hr 07/29/22 07/29/22 07/29/22 17:34 17:34 17:34 MCV 89.5 MCH 29.5 MCHC 33.0 RDW 15.4 Plt Count 107 L MPV 12.6 H Immature Gran % (Auto) Cancelled Neut % (Auto) Cancelled Lymph % (Auto) Cancelled Cass % (Auto) Cancelled Eos % (Auto) Cancelled Baso % (Auto) Cancelled Lymph # (Auto) Cancelled Cass # (Auto) Cancelled Eos # (Auto) Cancelled Baso # (Auto) Cancelled Abs Immat Gran (auto) Cancelled Absolute Neuts (auto) Cancelled Absolute Nucleated RBC 0.020 H Nucleated RBC % (auto) 0.7 H Neutrophils % (Manual) 31 L Band Neutrophils % 5 Lymphocytes % (Manual) 38 Monocytes % (Manual) 25 H Eosinophils % (Manual) 1 Metamyelocytes % Abs Neuts (Manual) 1.0 L Lymphocytes # (Manual) 1.1 L Monocytes # (Manual) 0.7 Metamyelocytes # Platelet Estimate SLIGHTLY DECREASED Large Platelets PRESENT Plt Morphology Comment NORMAL RBC Morphology NOTED Macrocytosis 1+ (5-14) Tear Drop Cells Ovalocytes 1+ (5-14) [place] Cells Acanthocytes (Spur) Schistocytes PT 13.0 INR 1.1 Anion Gap 14 Estim Creat Clear Calc 37.4 Estimated GFR > 60 Random Glucose 118 H Lactic Acid Calcium 9.2 D Magnesium 2.4 Total Bilirubin 0.4 Direct Bilirubin 0.2 AST 10 ALT < 6 Alkaline Phosphatase 111 Troponin I High Sens B-Natriuretic Peptide Total Protein 7.2 Albumin 3.8 Lipase 18 Urine Color Urine Appearance Urine pH Ur Specific [place] Urine Protein Urine Glucose (UA) Urine Ketones Urine Blood Urine Nitrite Ur Leukocyte Esterase Urine RBC Urine WBC Ur Squamous Epith Cells Other Crystals Urine Bacteria Hyaline Casts Stool Occult Blood Influenza Type A (PCR) Influenza Type B (PCR) RSV RNA Qual (PCR) SARS-CoV-2 RNA (RT-PCR) Blood Type Antibody Screen Antibody Identification JUDITH, Polyspecific Positive JUDITH Work-up Crossmatch ([facility]) Blood Bank Comment 07/29/22 07/29/22 07/29/22 17:34 17:34 17:34 MCV MCH MCHC RDW Plt Count MPV Immature Gran % (Auto) Neut % (Auto) Lymph % (Auto) Cass % (Auto) Eos % (Auto) Baso % (Auto) Lymph # (Auto) Cass # (Auto) Eos # (Auto) Baso # (Auto) Abs Immat Gran (auto) Absolute Neuts (auto) Absolute Nucleated RBC Nucleated RBC % (auto) Neutrophils % (Manual) Band Neutrophils % Lymphocytes % (Manual) Monocytes % (Manual) Eosinophils % (Manual) Metamyelocytes % Abs Neuts (Manual) Lymphocytes # (Manual) Monocytes # (Manual) Metamyelocytes # Platelet Estimate Large Platelets Plt Morphology Comment RBC Morphology Macrocytosis Tear Drop Cells Ovalocytes Tre[place]or Cells Acanthocytes (Spur) Schistocytes PT INR Anion Gap Estim Creat Clear Calc Estimated GFR Random Glucose Lactic Acid 1.9 Calcium Magnesium Total Bilirubin Direct Bilirubin AST ALT Alkaline Phosphatase Troponin I High Sens < 3.5 B-Natriuretic Peptide 110 H Total Protein Albumin Lipase Urine Color Urine Appearance Urine pH Ur Specific [place] Urine Protein Urine Glucose (UA) Urine Ketones Urine Blood Urine Nitrite Ur Leukocyte Esterase Urine RBC Urine WBC Ur Squamous Epith Cells Other Crystals Urine Bacteria Hyaline Casts Stool Occult Blood Influenza Type A (PCR) Influenza Type B (PCR) RSV RNA Qual (PCR) SARS-CoV-2 RNA (RT-PCR) Blood Type Antibody Screen Antibody Identification JUDITH, Polyspecific Positive JUDITH Work-up Crossmatch ([facility]) Blood Bank Comment 07/29/22 07/29/22 07/29/22 17:34 18:53 20:03 MCV MCH MCHC RDW Plt Count MPV Immature Gran % (Auto) Neut % (Auto) Lymph % (Auto) Cass % (Auto) Eos % (Auto) Baso % (Auto) Lymph # (Auto) Cass # (Auto) Eos # (Auto) Baso # (Auto) Abs Immat Gran (auto) Absolute Neuts (auto) Absolute Nucleated RBC Nucleated RBC % (auto) Neutrophils % (Manual) Band Neutrophils % Lymphocytes % (Manual) Monocytes % (Manual) Eosinophils % (Manual) Metamyelocytes % Abs Neuts (Manual) Lymphocytes # (Manual) Monocytes # (Manual) Metamyelocytes # Platelet Estimate Large Platelets Plt Morphology Comment RBC Morphology Macrocytosis Tear Drop Cells Ovalocytes Treynor Cells Acanthocytes (Spur) Schistocytes PT INR Anion Gap Estim Creat Clear Calc Estimated GFR Random Glucose Lactic Acid Calcium Magnesium Total Bilirubin Direct Bilirubin AST ALT Alkaline Phosphatase Troponin I High Sens B-Natriuretic Peptide Total Protein Albumin Lipase Urine Color Yellow Urine Appearance Hazy Urine pH 6.0 Ur Specific [place] 1.020 Urine Protein Negative Urine Glucose (UA) Negative Urine Ketones Trace Urine Blood Negative Urine Nitrite Negative Ur Leukocyte Esterase Small (1+) H Urine RBC >20 H Urine WBC >50 H Ur Squamous Epith Cells 3-5 Other Crystals Present Urine Bacteria 4+ Hyaline Casts 3-5 Stool Occult Blood Influenza Type A (PCR) NEGATIVE Influenza Type B (PCR) NEGATIVE RSV RNA Qual (PCR) NEGATIVE SARS-CoV-2 RNA (RT-PCR) NEGATIVE Blood Type O Positive Antibody Screen NEGATIVE Antibody Identification Inconclusive JUDITH, Polyspecific NEGATIVE Positive JUDITH Work-up TNP Crossmatch ([facility]) See Detail Blood Bank Comment Specimen 07/30/22 07/30/22 07/30/22 02:00 06:36 06:36 MCV 88.8 MCH 29.9 MCHC 33.6 RDW 14.5 Plt Count 91 L MPV 12.3 Immature Gran % (Auto) Cancelled Neut % (Auto) Cancelled Lymph % (Auto) Cancelled Cass % (Auto) Cancelled Eos % (Auto) Cancelled Baso % (Auto) Cancelled Lymph # (Auto) Cancelled Cass # (Auto) Cancelled Eos # (Auto) Cancelled Baso # (Auto) Cancelled Abs Immat Gran (auto) Cancelled Absolute Neuts (auto) Cancelled Absolute Nucleated RBC 0.000 Nucleated RBC % (auto) 0.0 Neutrophils % (Manual) 20 L Band Neutrophils % 5 Lymphocytes % (Manual) 43 H Monocytes % (Manual) 29 H Eosinophils % (Manual) 1 Metamyelocytes % 2 Abs Neuts (Manual) 0.7 L Lymphocytes # (Manual) 1.2 Monocytes # (Manual) 0.8 Metamyelocytes # 0.1 Platelet Estimate DECREASED Large Platelets PRESENT Plt Morphology Comment NOTED RBC Morphology NOTED Macrocytosis 1+ (5-14) Tear Drop Cells 1+ (0-2) Ovalocytes 1+ (5-14) Manda Cells 1+ (0-2) Acanthocytes (Spur) 1+ (0-2) Schistocytes 1+ (0-2) PT INR Anion Gap 10 L Estim Creat Clear Calc 47.4 Estimated GFR > 60 Random Glucose 81 Lactic Acid Calcium 8.6 D Magnesium Total Bilirubin Direct Bilirubin AST ALT Alkaline Phosphatase Troponin I High Sens B-Natriuretic Peptide Total Protein Albumin Lipase Urine Color Urine Appearance Urine pH Ur Specific [place] Urine Protein Urine Glucose (UA) Urine Ketones Urine Blood Urine Nitrite Ur Leukocyte Esterase Urine RBC Urine WBC Ur Squamous Epith Cells Other Crystals Urine Bacteria Hyaline Casts Stool Occult Blood NEGATIVE Influenza Type A (PCR) Influenza Type B (PCR) RSV RNA Qual (PCR) SARS-CoV-2 RNA (RT-PCR) Blood Type Antibody Screen Antibody Identification JUDITH, Polyspecific Positive JUDITH Work-up Crossmatch ([facility]) Blood Bank Comment Assessment and Plan (1) Syncope: Status: Acute (2) Bradycardia: Status: Acute (3) Acute on chronic anemia: Status: Acute (4) Hyponatremia: Status: Acute Plan This is a 87-year-old female resident of [facility] with pertinent history of atrial fibrillation, essential tremor, Parkinson's disease, hypothyroidism was sent from [facility] for evaluation of?syncope. #.? Syncope -Concern for symcope due to bradycardia, HR noted to be 20s-30s -Initiated on dig last admission last month -Monitor on telemetry, no overnight events -Cardiology input appreciated -Cards recommending 1 units blood to achieve HCT >30%. 1 unit PRBC ordered -Orthostatics ordered #.? 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 MAAME Martin was consulted from the ER who recommended outpatient evaluation and management #Acute UTI: Previous culture with E coli -Continue rocephin -Follow cultures #hyponatremia -improved with IVF -Monitor BMP #. Significant -Noted on Echo during previous admission.? -Conservative management as per cardiology #.Dysphagia due to Parkinson's disease -on modified diet as below #.? Hypothyroidism -continue Synthroid. #.? COPD -continue home inhalers #.? Paroxysmal atrial fibrillation- rate controlled -Not on anticoagulation -continue digoxin #Orthostatic hypotension -continue midodrine DVT prophylaxis:? Mechanical Chopped advanced diet with nectar thick fluids Do not intubate. Time Spent With Patient Time: Total time managing care of this patient today 25 minutes. Quality Stroke Does the patient have a stroke diagnosis?: No VTE Prior VTE?: No VTE Risk Level:: Medical - moderate - high VTE Device Contraindication: N/A - Device Ordered VTE Drug Contraindication: Treatment Not Indicated
[2022-07-30] MEDS: Ascorbic Acid 500 MG TABLET PO (12:24)
[2022-07-30] MEDS: Levothyroxine Sodium 100 MCG TABLET PO (12:24)
[2022-07-30] MEDS: Midodrine HCl 5 MG TABLET PO ×2 (12:24→16:49)
[2022-07-30] MEDS: Montelukast Sodium 10 MG TABLET PO (12:25)
[2022-07-30] MEDS: Digoxin 0.125 MG TABLET PO (12:26)
--- NOTE | 2022-07-30 14:36 | PC.NURSE ---
Pt awake, eating lunch at this time.
[2022-07-30] MEDS: rOPINIRole HCL 0.5 MG TABLET 1.5 MG PO ×2 (16:49→21:34)
[2022-07-30] MEDS: 0.9 % Sodium Chloride Flush 3 ML SYRINGE IVFLUSH (17:40)
[2022-07-30] MEDS: Primidone 50 MG TABLET 100 MG PO (21:33)
[2022-07-30] MEDS: Melatonin 3 MG TABLET 6 MG PO (21:33)
[2022-07-30] MEDS: Gabapentin 100 MG CAPSULE 200 MG PO (21:33)
[2022-07-31 03:21] VITALS: BP 152/67; PULSE 69; RESP 17; TEMP 36.4; O2SAT 98
[2022-07-31] MEDS: Levothyroxine Sodium 100 MCG TABLET PO (06:28)
[2022-07-31] MEDS: Omeprazole 20 MG CAPSULE.DR PO (06:28)
[2022-07-31] MEDS: 0.9 % Sodium Chloride Flush 3 ML SYRINGE IVFLUSH ×2 (06:28→10:01)
[2022-07-31 06:32] VITALS: BP 137/65; PULSE 75
[2022-07-31 06:58] LABS: Hematocrit 28.8 % (37.0-47.0); Mean Corpuscular HGB Conc 34.7 g/dl (31.0-35.0); Mean Corpuscular Hemoglobin 29.9 pg (27.0-33.0); Mean Corpuscular Volume 86.2 fL (80.0-98.0); Mean Platelet Volume 12.4 fL (9.4-12.3); Red Blood Count 3.34 X10*6/uL (4.20-5.50); Red Cell Distribution Width 14.3 % (11.0-16.0)
[2022-07-31 06:59] LABS: Platelet Count 92 X10*3/uL (160-400)
[2022-07-31 07:25] LABS: Anion Gap 8 (12-20); Blood Urea Nitrogen 18 mg/dL (9-16); Calcium 8.5 mg/dL (8.4-10.2); Carbon Dioxide 24 mmol/L (22-29); Chloride 100 mmol/L (96-108); Creatinine Clr Calc Pharmacy 46.8; Estimated Glomerular Filt Rate > 60; Glucose Random 84 mg/dL (60-115); Potassium 4.3 mmol/L (3.3-5.1); Sodium 128 mmol/L (135-145)
[2022-07-31 07:29] LABS: Atypical Lymph Absolute Manual 0.1 x10*3/uL; Atypical Lymphs Percent Manual 2 % (0-6); Band Neutrophils Percent 5 % (3-5); Eosinophils Absolute Manual 0.1 X10*3/uL (0.0-0.4); Eosinophils Percent Manual 2 % (0-4); Lymphocytes Absolute Manual 1.2 X10*3/uL (1.2-4.9); Lymphocytes Percent Manual 40 % (20-40); Metamyelocytes Absolute 0.3 X10*3/uL; Metamyelocytes Percent 9 %; Monocytes Absolute Manual 0.5 X10*3/uL (0.1-1.2); Monocytes Percent Manual 16 % (2-11); Myelocytes Percent 1 %; Neutrophils Absolute Manual 0.9 X10*3/uL (2.0-8.3); Neutrophils Percent Manual 25 % (45-73)
[2022-07-31 07:30] LABS: Platelet Estimate DECREASED (NORMAL); Platelet Morphology Comment NOTED
[2022-07-31 07:31] LABS: Large Platelet PRESENT
[2022-07-31 07:32] LABS: Tear Drop Cells 1+ (0-2) /OIF
[2022-07-31 07:33] LABS: Burr Cells 1+ (0-2) /OIF; RBC Morphology NOTED
[2022-07-31 08:00] VITALS: BP 146/67; PULSE 116; RESP 16; TEMP 36.3; O2SAT 98
--- NOTE | 2022-07-31 09:24 | MHC.CM.PN ---
Patient is a poor Historian; CM spoke with Daughter/HCP/Angie @ [phone] and addressed RYAN with her (original will be mailed to Angie and a copy has been placed on the chart). Patient is now a LTC Resident of [facility] and a PP bed hold there. Patient is applying for [facility] through [place] and the goal is for Patient to return there once medically cleared for dc. CM has initiated and will follow for dc planning. Patient has received [employer] vax x4.
[2022-07-31] MEDS: Ascorbic Acid 500 MG TABLET PO (10:00)
[2022-07-31] MEDS: rOPINIRole HCL 0.5 MG TABLET 1.5 MG PO (10:00)
[2022-07-31] MEDS: Montelukast Sodium 10 MG TABLET PO (10:00)
--- NOTE | 2022-07-31 10:27 | P.CDIC_ITS ---
CDI Concurrent Query Documentation Clarification: PHYSICIAN'S DOCUMENTATION REQUEST Date of Query: 07/31/22 1027 Patient Name: Ximena Cheng Admit Date: 07/30/22 Dear Doctor, A review of the medical record indicates additional documentation may be needed. Please review below and update the documentation accordingly. Clinical Indicators: Is there a diagnosis that correlates with the findings below: Risk Factors/Clinical Indicators/Treatments -BMI: 17.4 -Height: 5ft 6in -Weight: 49kg -Poor PO intake per RN shift assessments -Per speech pathologist assistant consult on recent previou s admission 06/23/22: PT REPORTED WT LOSS 14-23# ON NURSING ADMISSION ASSESSMENT WITH POOR PO INTAKE If possible, please provide an associated diagnosis related to the abnormal BMI, such as: Malnutrition: * Mild * Moderate * Severe For a BMI <= 19: * Underweight * Weight loss * Cachexia * Anorexia Or: * BMI is not significant * Other (please specify) * Unable to determine Use of terms such as suspected, likely, concern for, or probable (associated with a specific diagnosis that is being evaluated, monitored, or treated as if it exists) are acceptable and can be coded in the inpatient setting, when documented at the time of discharge. Thank you, Elena Sanchez MS, RN, CCRN Extension: [phone] Please use your independent medical judgment in providing your response. THIS QUERY IS PART OF THE PERMANENT MEDICAL RECORD Provider Response: Moderate Protein-Calorie Malnutrition
--- NOTE | 2022-07-31 10:38 | P.CDIC_ITS ---
CDI Concurrent Query Documentation Clarification: PHYSICIAN'S DOCUMENTATION REQUEST Date of Query: 07/31/22 1038 Patient Name: Ximena Cheng Admit Date: 07/30/22 Dear Doctor, A review of the medical record indicates additional documentation may be needed. Please review below and update the documentation accordingly. 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 Thank you, Elena Sanchez MS, RN, CCRN Extension: [phone] Please use your independent medical judgment in providing your response. THIS QUERY IS PART OF THE PERMANENT MEDICAL RECORD Provider Response: Other Other Diagnosis: Acute on chronic anemia due to myelodysplastic syndrome/CML
--- NOTE | 2022-07-31 10:43 | P.DS_ITS ---
DS: Providers Provider Date of Service: 07/31/22 Date of admission: 07/30/22 13:14 Date of discharge: 07/31/22 Primary care physician: Unknown Physician Admitting clinician: Burt Yung Attending physician on admission: Burt Yung Consults: 07/29/22 22:11 Consult to Cardiology Routine Consulting Provider: Brian Leary Reason for consultation: ?cardiac syncope [facility]ing clinician: Christy Cotton DS: Diagnosis Discharge Diagnosis (1) Syncope: Status: Acute (2) Bradycardia: Status: Acute (3) Acute on chronic anemia: Status: Acute (4) Hyponatremia: Status: Acute DS: Summary Hospital Course Hospital Course: HPI on admission 07/29/[address] Yung: This is a 87-year-old female resident of senior living with pertinent history of atrial fibrillation, essential tremor, Parkinson's disease, hypothyroidism was sent from senior living for evaluation of?syncope.? Patient is a poor historian.? States that she passed out for few seconds, unclear what was she is doing at that time.? Denies chest discomfort, palpitations, dizziness or lightheadedness prior to the episode.? It was sudden onset.? As per chart review, EMS noted the patient's heart rate to be 20 to 30s upon arrival.? Also noted a sinus pause.? As per senior living patient has been constipated but she reports a bowel moveme nt this morning.? Does have a history of blood transfusions due to MDS.? Patient denies fever, chills, chest discomfort, palpitation, shortness of breath abdominal pain, hematochezia, melena, hematemesis, hematuria or changes in bowel habits.? Does endorse urinary hesitancy and history of UTI. In the emergency department, patient in normal sinus rhythm with first-degree AV block with hemoglobin 7 Hospital Course: Admitted to [facility] for close monitoring on telemetry following syncopal episode noted to have acute on chronic anemia secondary to MDS with H/H 7.0/21.2, transfused 2 units in ED. H/H improved to 8.3/24.7. 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 Patient was asymptomatic throughout admission without any recurrent syncope. There were no arrhythmias or significant bradycardia noted on cardiac monitoring. 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 Was not felt that her aortic stenosis was related to her syncopal episode. Cardiology also recommending additional unit packed red blood cells with goal hematocrit greater than 30%. Transfused additional unit packed red blood cells to 10.0/28.8%. Needs close follow-up with her oncologist for further management of chronic anemia related to myelodysplastic syndrome. Orthostatic vital signs were negative. Blood cultures negative. Was treated empirically with 3 doses of ceftriaxone for possible UTI though patient is asymptomatic. Urine culture pending but Gram stain showing mixed daryl with Gram-positive Gram-negative, final results pending. Given her history of UTI and symptoms of urinary hesitancy will discharge with cefuroxime 250mg BID for an addl 6 doses (next dose due 9pm). She is also noted to be mildly/moderately malnourished d/t protein deficiency. Would recommend adding Ensure to her diet. She will be discharged to long-term care facility where she resides and needs close follow- up with Cardiology for Holter monitor as well as agile scrum master/oncologist. Should also follow up soon with PCP. Time spent discussing smoking cessation with patient: more than 10 minutes Status at Discharge Functional status at discharge: uses cane/walker Overall status at discharge: patient is back to baseline Time Spent with Patient Time attestation: Total time managing care of this patient today 35 minutes. Discharge coordination time: Greater than 30 minutes Quality: Safe Use of Opioids Does Pt have an Active Cancer Diagnosis on the Problem List?: No Quality: Stroke Does the patient have a stroke diagnosis?: No Physical Exam Vital Signs: Vital Signs: Last Vital Signs Temp 97.4 F 07/31/22 08:00 Pulse 116 H 07/31/22 08:00 Resp 16 07/31/22 08:00 BP 146/67 H 07/31/22 08:00 Pulse Ox 98 07/31/22 08:00 O2 Del Method 07/31/22 08:00 BMI result Body Mass Index 17.4 Constitutional - Awake and Alert, No apparent distress Eyes - PERRLA, EOMI Cardiovascular - S1S2, RRR, No edema Respiratory - Normal lung expansion, Normal respiratory effort, No respiratory distress, CTA bilaterally Gastrointestinal - NT / ND; +BS; No rebound or guarding Extremities - no calf tenderness bilaterally, no swelling Skin - Warm/Dry Neurological - Alert & oriented x3 Psychological - Appropriate affect DS: Data Data Completed and Pending Completed studies during hospitalization [Text1]: Procedures Transfusion of Nonautologous Red Blood Cells into Peripheral Vein, Percutaneous Approach (06/22/22) Labs on day of discharge: Laboratory Results - last 24 hr 07/29/22 07/31/22 07/31/22 18:53 06:23 06:23 WBC 3.0 L RBC 3.34 L D Hgb 10.0 L D Hct 28.8 L MCV 86.2 MCH 29.9 MCHC 34.7 RDW 14.3 Plt Count 92 L MPV 12.4 H Immature Gran % (Auto) Cancelled Neut % (Auto) Cancelled Lymph % (Auto) Cancelled [place] % (Auto) Cancelled Eos % (Auto) Cancelled Baso % (Auto) Cancelled Lymph # (Auto) Cancelled [place] # (Auto) Cancelled Eos # (Auto) Cancelled Baso # (Auto) Cancelled Abs Immat Gran (auto) Cancelled Absolute Neuts (auto) Cancelled Absolute Nucleated RBC 0.000 Nucleated RBC % (auto) 0.0 Neutrophils % (Manual) 25 L Band Neutrophils % 5 Lymphocytes % (Manual) 40 Atypical Lymphs % (Man) 2 Monocytes % (Manual) 16 H Eosinophils % (Manual) 2 Metamyelocytes % 9 Myelocytes % 1 Abs Neuts (Manual) 0.9 L Lymphocytes # (Manual) 1.2 Atyp Lymphs # (Manual) 0.1 Monocytes # (Manual) 0.5 Eosinophils # (Manual) 0.1 Metamyelocytes # 0.3 Platelet Estimate DECREASED Large Platelets PRESENT Plt Morphology Comment NOTED RBC Morphology NOTED Tear Drop Cells 1+ (0-2) Manda Cells 1+ (0-2) Sodium 128 L Potassium 4.3 Chloride 100 Carbon Dioxide 24 Anion Gap 8 L BUN 18 H Creatinine 0.68 Estim Creat Clear Calc 46.8 Estimated GFR > 60 Random Glucose 84 Calcium 8.5 Blood Type O Positive Antibody Screen NEGATIVE Antibody Identification Inconclusive JUDITH, Polyspecific NEGATIVE Positive JUDITH Work-up TNP Crossmatch (AHG) See Detail Blood Bank Comment Specimen Preliminary micro results at discharge 07/29/22 17:34 Blood Culture - Preliminary Blood - Venous No growth after 24 hours. 07/29/22 17:34 Blood Culture - Preliminary Blood - Venous No growth after 24 hours. 07/29/22 Unknown Urine Culture - Preliminary Urine clean catch - Urine crews top Culture too young to evaluate. Discharge Plan Discharge Anticipated Discharge Date/Time: 07/31/22 09:58 Patient Disposition: Xfer [facility] Discharge Diagnosis: syncope, acute on chronic anemia Referrals: Physician,Unknown J [Primary Care Provider] - 1 Week Discharge Medications: New cefuroxime axetil 250 mg tablet 250 mg PO BID Qty: 6 0RF Rx Instructions: Next dose due 07/31 @2100 Continued acetaminophen 325 mg Tablet 975 mg PO Q8H midodrine 5 mg Tablet 5 mg PO TID Rx Instructions: HOLD FOR SBP >110; do not give last dose of day after 6PM or within 4 hrs of bedtime levothyroxine 100 mcg Tablet 100 mcg PO DAILY@0600 ascorbic acid (vitamin C) 500 mg Tablet 500 mg PO DAILY hydrocortisone 1 % Cream 1 appl TOPICAL Q24H PRN (Reason: Rash) melatonin 5 mg Tablet 6 mg PO BEDTIME menthol-zinc oxide [Calmoseptine] 0.44-20.6 % Ointment 1 appl TOPICAL BID Rx Instructions: to buttocks Anoro Ellipta 62.5-25 mcg/actuation Blister With Device 1 inh INHALATION DAILY Rytary 23.75-95 mg Capsule, Extended Release 2 cap PO TID Rx Instructions: divide evenly over waking hours carboxymethylcellulose sodium 1 % Drops 1 drp OPHTHALMIC (EYE) Q12H PRN (Reason: Dry Eye(S)) carboxymethylcellulose sodium 1 % Drops 1 drp OPHTHALMIC (EYE) BID Saccharomyces boulardii 1 cap PO BID urea 15 gram powder in packet 2 packet PO DAILY Qty: 8 0RF digoxin 125 mcg (0.125 mg) tablet 0.125 mg PO SUMOWETHSA lactulose 10 gram/15 mL solution 15 ml PO Q24H PRN (Reason: Constipation) omeprazole 20 mg capsule,delayed release(DR/EC) 20 mg PO DAILY@0630 ondansetron 4 mg tablet,disintegrating 4 mg PO Q8H PRN (Reason: Nausea) gabapentin 100 mg capsule 200 mg PO BEDTIME montelukast 10 mg tablet 10 mg PO DAILY lidocaine 5 % adhesive patch,medicated 1 patch topical DAILY Rx Instructions: APPLY PATCH TO THE RIGHT HIP ropinirole 3 mg tablet 1.5 mg PO TID primidone 50 mg tablet 100 mg PO BEDTIME Discharge Orders: Discharge Order (Routine); Ordered 07/31/22 Ordered By: Christy Cotton Diet: Regular diet Activity on Discharge: As tolerated Stand Alone Forms: Patient Portal Discharge page Care Plan Goals: Prevent recurrent syncopal events Health Concerns: Syncope Myelodysplastic syndrome with anemia Aortic stenosis Concern for sick sinus syndrome and/or complete heart block Plan of Treatment: Syncope -You were monitored over two nights without any evidence of arrhythmia noted on cardiac monitoring. Your evaluated by Cardiology who did not feel your aortic stenosis was contributory. He is concerned there may be a cardiac arrhythmia called sick sinus syndrome or a transient complete heart block though this was not seen on cardiac monitoring. You need to follow-up with your mechanical engineering coop soon to have a Holter monitor and further evaluation -follow-up with your agile scrum master regarding your chronic anemia as she required 3 units of blood transfused as low blood counts can cause syncopal episodes. -drink adequate fluids -follow-up with your mechanical engineering coop for Holter monitor soon UTI -You received 2 days of ceftriaxone to empirically treat UTI given your urinary hesitancy symptoms -Complete course of antibiotics with cefuroxime twice daily for additional 6 doses, next dose due at 9pm tonight 07/31 -Urine culture results are still pending Mild/moderate Malnutrition from protein deficiency -Recommend Ensure BID Assessment: As above
--- NOTE | 2022-07-31 10:55 | P.PNCA_ITS ---
Subjective Subjective Date of Service: 07/31/22 Interval history: She states she feels fine. No specific complaints. Review of Systems Review of Systems Yes all other systems are reviewed and are negative Constitutional: Reports as per HPI Eyes: Reports as per HPI Reports as per HPI Cardiovascular: Reports as per HPI, Denies acrocyanosis, Denies cool extremities, Denies chest pain, Denies leg edema, Denies lightheadedness, Denies palpitations and Denies dyspnea Respiratory: Reports as per HPI, Reports no additional respiratory complaints and Denies dyspnea Gastrointestinal: Reports as per HPI and Reports no additional gastrointestinal complaints Genitourinary: Reports as per HPI Musculoskeletal: Reports no additional musculoskeletal complaints and Reports as per HPI Skin/Breast: Reports system reviewed and no additional complaints, except as docu Reports system reviewed and no additional complaints, except as documented and Reports as per HPI Psychiatric: Reports no additional psychiatric complaints and Reports as per HPI Endocrine: Reports no additional endocrine complaints, Reports as per HPI and Denies palpitations Hematologic/Lymphatic: Reports no additional hematologic/lymphatic complaints and Reports as per HPI Allergic/Immunologic: Reports no additional allergic/immunologic complaints and Reports as per HPI Physical Exam Vital Signs: Last Vital Signs Temp 97.4 F 07/31/22 08:00 Pulse 116 H 07/31/22 08:00 Resp 16 07/31/22 08:00 BP 146/67 H 07/31/22 08:00 Pulse Ox 98 07/31/22 08:00 O2 Del Method 07/31/22 08:00 BMI result Body Mass Index 17.4 Const General: comfortable and no acute distress Nutritional Appearance: thin and underweight Orientation/consciousness: patient oriented x3 HEENT Other: Unremarkable Head: Yes normal to inspection Neck Neck: Yes normal visual inspection Chest Chest palpation & inspection: normal inspection of the chest Resp Auscultation: clear to auscultation bilaterally Cardio Palpation: normal PMI Heart sounds: S1 normal heart sound present, S2 normal heart sound present, no gallops, Murmur heart sound present systolic II/ and at the right sternal border and no rubs GI Palpation (GI): Soft to palpation Back/Spine/Pelvis Other: unremarkable Skin General skin exam: no rashes or lesions noted Neuro General: patient oriented x3 Extrem General: Yes normal to inspection Psych Mental Status: mental status grossly normal Objective Labs and Meds Result diagrams: 07/31/22 06:23 07/31/22 06:23 Lab results: Laboratory Results - last 24 hr 07/29/22 07/31/22 07/31/22 18:53 06:23 06:23 WBC 3.0 L RBC 3.34 L D Hgb 10.0 L D Hct 28.8 L MCV 86.2 MCH 29.9 MCHC 34.7 RDW 14.3 Plt Count 92 L MPV 12.4 H Immature Gran % (Auto) Cancelled Neut % (Auto) Cancelled Lymph % (Auto) Cancelled [place] % (Auto) Cancelled Eos % (Auto) Cancelled Baso % (Auto) Cancelled Lymph # (Auto) Cancelled [place] # (Auto) Cancelled Eos # (Auto) Cancelled Baso # (Auto) Cancelled Abs Immat Gran (auto) Cancelled Absolute Neuts (auto) Cancelled Absolute Nucleated RBC 0.000 Nucleated RBC % (auto) 0.0 Neutrophils % (Manual) 25 L Band Neutrophils % 5 Lymphocytes % (Manual) 40 Atypical Lymphs % (Man) 2 Monocytes % (Manual) 16 H Eosinophils % (Manual) 2 Metamyelocytes % 9 Myelocytes % 1 Abs Neuts (Manual) 0.9 L Lymphocytes # (Manual) 1.2 Atyp Lymphs # (Manual) 0.1 Monocytes # (Manual) 0.5 Eosinophils # (Manual) 0.1 Metamyelocytes # 0.3 Platelet Estimate DECREASED Large Platelets PRESENT Plt Morphology Comment NOTED RBC Morphology NOTED Tear Drop Cells 1+ (0-2) [place] Cells 1+ (0-2) Sodium 128 L Potassium 4.3 Chloride 100 Carbon Dioxide 24 Anion Gap 8 L BUN 18 H Creatinine 0.68 Estim Creat Clear Calc 46.8 Estimated GFR > 60 Random Glucose 84 Calcium 8.5 Blood Type O Positive Antibody Screen NEGATIVE Antibody Identification Inconclusive JUDITH, Polyspecific NEGATIVE Positive JUDITH Work-up TNP Crossmatch (AHG) See Detail Blood Bank Comment Specimen Progress Note: A&P Assessment and plan (1) Syncope: Status: Acute (2) Aortic stenosis: Status: Acute (3) Bradycardia: Status: Acute Plan EKG shows sinus rhythm with slight [place] prolongation. Telemetry is essentially unremarkable-less than 2nd pauses at nighttime. Nothing during the day otherwise. Nothing more prolonged. Recent echocardiogram with LVEF of 68% and probable low-flow low gradient severe aortic stenosis. Based on telemetry, no obvious heart blocks or other significant bradycardia findings. Otherwise, it seems that she has been treated for anemia as well. No further inpatient workup needed. It seems she is already set up to see Interventional Cardiology at [facility] in the near future. Can also consider getting a Holter for rhythm assessment. Discharge planning. Time Spent With Patient Time: Total time managing care of this patient today 30 minutes. Progress Note: Quality Stroke Does the patient have a stroke diagnosis?: No Procedures Date of Service Date of Service: 07/31/22
[2022-07-31 11:06] VITALS: BMI 17.4
--- NOTE | 2022-07-31 11:09 | MHC.CLN ---
PT IS MODERATELY MALNOURISHED PT WITH MILDLY DEPLETED SUBCUTANEOUS FAT AND MUSCLE MASS AND 14% SIGNIFICANT WT LOSS X 9 MONTHS WITH BMI 17.4 PO INTAKE NOT GREAT PER PT DIET RX: CHOPPED WITH NT LIQ-APPROPRIATE RECOMMEND ADDING ENSURE BID TO INCREASE KCALS PT PREFERS [facility] SUPP TO PROVIDE 700KCALS, 40G PROTEIN WITH 100% ACCEPTANCE MONITOR PO INTAKE CLOSELY SEE ALSO FULL CLINICAL NUTRITION ASSESSMENT
--- NOTE | 2022-07-31 11:39 | MHC.CM.PN ---
Patient has been medically cleared for dc to return to LTC @ [facility] today @ 1PM, via [facility]. CM requested that SILVERIO/Christy phone Patient's Daughter/Angie with an update and notification of today's dc.
[2022-07-31 11:44] VITALS: BP 145/63; PULSE 74; RESP 16; TEMP 36.6; O2SAT 96
[2022-07-31] MEDS: Digoxin 0.125 MG TABLET PO (13:39)
== END 2022-07-31 14:26 | disposition home or self-care (01) | DRG 641 ==
LOC: HO.ED 17:31 → HO.EDOVER 22:31 → HO.IMC 07-30 16:18
PROVIDERS: Physician Assistant; Admitting Provider Student in an Organized Health Care Education/Training Program; Emergency Provider Emergency Medicine Emergency Medical Services; PCP Internal Medicine; Visit Provider Physician Assistant
DX: E87.1 Hypo-osmolality and hyponatremia (principal); N39.0 Urinary tract infection, site not specified; E44.0 Moderate protein-calorie malnutrition; Z68.1 Body mass index [BMI] 19.9 or less, adult; C92.10 Chronic myeloid leukemia, BCR/ABL-positive, not having achieved remission; D61.818 Other pancytopenia; D46.B Refractory cytopenia with multilineage dysplasia and ring sideroblasts; E03.9 Hypothyroidism, unspecified; G47.33 Obstructive sleep apnea (adult) (pediatric); G20 Parkinson's disease; I48.0 Paroxysmal atrial fibrillation; R13.10 Dysphagia, unspecified; D63.0 Anemia in neoplastic disease; Z87.440 Personal history of urinary (tract) infections; J44.9 Chronic obstructive pulmonary disease, unspecified; K59.00 Constipation, unspecified; I35.0 Nonrheumatic aortic (valve) stenosis; Z20.822 Contact with and (suspected) exposure to COVID-19; Z87.891 Personal history of nicotine dependence; Z79.890 Hormone replacement therapy; Z79.899 Other long term (current) drug therapy
CPT/HCPCS: 0241U; 36415; 71045; 74176; 76856; 80048; 80076; 81001; 82272; 83605; 83690; 83735; 83880; 84484; 85007; 85025; 85027; 85610; 86850; 86870; 86880; 86900; 86901; 86920; 86922; 87040; 87086; 93005; 99219; 99285; J0696; J2405; P9016

== ENCOUNTER 2022-08-09 12:49 | Outpatient (REF) | payer MEDICARE, SELFPAY ==
--- NOTE | ~2022-08-09 | FL_ITS ---
EXAMINATION: FL MODIFIED BARIUM SWALLOW CLINICAL INFORMATION: Dysphagia COMPARISON: Chest radiograph 07/29/2022, CTA chest 06/18/2022 TECHNIQUE: Modified barium swallow examination is performed with imaging in the lateral view and the presence of the speech pathologist using a variety of barium consistencies. The exam is performed with fluoroscopic evaluation, videofluoroscopy, and some fluoroscopic spot views. Barium pill also given. Fluoroscopy time: 2.6 minus minutes DAP: 1.184 Gycm2 Fluoroscopic spot images: 2 FINDINGS: There is undercoating of the epiglottis during swallowing but without definite laryngeal penetration. There is no josé miguel aspiration. Some posterior lingual escape is seen during swallowing with filling of the vallecula prior to initiation of swallowing. No nasopharyngeal penetration. Prompt transit of barium pill from mouth to thoracic esophagus. See speech pathologist report for further assessment and recommendation. FL/FL barium swallow modified IMPRESSION: -Undercoating of epiglottis during swallowing without definite laryngeal penetration. -No josé miguel aspiration. -Posterior lingual escape with some filling of vallecula prior to initiation of swallowing. -See speech pathologist report for further assessment and recommendation.
--- NOTE | 2022-08-11 10:31 | MHC.SL.IMP ---
Date of Plan of Treatment: 08/09/22 Onset of Symptoms/Illness: 06/26/22 Date Treatment Started: 08/09/22 Admitting Diagnosis: AFIB, ALTAGRACIA, GERD, COPD, chronic mild hyponatremia, essential tremor, Parkinson?s Disease, myelodysplastic syndrome Primary Speech & Language Diagnosis: R13.12 Oropharyngeal Phase Dysphagia Reason for Today's Visit: 35902 Modified Barium Swallow Study Pre-evaluation Dietary Consistencies: chopped up food Pre-evaluation Liquid Consistency: thick liquids Pre-evaluation Medication Administration: unknown Medical History: Modified Barium Swallow Study Fluoroscopic Evaluation of Swallowing Function CPT Code 27633 Evaluation Year: 2021 Reason for Study: Pt reports difficulty swallowing pills. Referring Physician: Kimberlyn Magana Evaluating Clinician: Dania Bearden MA, [facility]-[employer] OFFICER Study Number: 1 Patient Name: Ximena Cheng Status: Outpatient Age: 87 Gender: Female MEDICAL HISTORY: AFIB, ALTAGRACIA, GERD, COPD, chronic mild hyponatremia, essential tremor, Parkinson?s Disease, myelodysplastic syndrome Current (pre-evaluation) Intake/Diet: Route: PO Pre-Study Functional Oral Intake Scale (FOIS): 5- Total oral intake of multiple consistencies requiring special preparation Pt reports she is on a ?chopped up? diet with thickened liquids at this time. Pain: None reported at time of study SUBJECTIVE: Pt is an 87 year old female with past medical history significant for obstructive sleep apnea, COPD, GERD, and Parkinson?s Disease. Pt reported that she does not have any trouble swallowing solids or liquids, only has trouble with pills. Pt reported pills ?get stuck.? Pt denied pain when swallowing. Pt reported that at [facility], her food is ?chopped up? and her liquids are thickened. Pt was seen by SPACE [employer]PER[employer] OFFICER during a prior hospitalization at [facility] for a bedside dysphagia evaluation. Pt displayed wet voice with intake of thin liquids, with nursing also reporting pt coughed on liquids. She was discharged to [facility] on a recommendation for chopped/advanced (NDD3) solids with nectar thick liquids. Oral Motor Exam Mouth Occlusion: Normal Oral-Facial Teeth Characteristics: Intact/Normal Oral-Facial Smile (Lips) Description: Reduced ROM Tongue Size: Normal Tongue Excursion Description: Normal Tongue Range of Movement Description: Normal Tongue Speed of Movement Description: Reduced Tongue Movement Miscellaneous Observation: Tremor Food and Liquid Trials: Oral Impairment: Lip Closure: Did not test Oral Impairment: Tongue Control During Bolus Hold: 2=Posterior escape of less than half of bolus Oral Impairment: Bolus Preparation/Mastication: 1=Slow prolonged chewing/mashing with complete re-collection Oral Impairment: Bolus Transport/Lingual Motion: 2=Slowed tongue motion Oral Impairment: Oral Residue: 1=Trace residue lining oral structures Oral Impairment:Initiation of Pharyngeal Swallow: 3=Bolus head in pyriforms Pharyngeal Impairment: Soft Palate Elevation: 0=No bolus between soft palate (SP)/pharyngeal wall (PW) Pharyngeal Impairment: Laryngeal Elevation: 1=Partial thyroid cartilage/arytenoids to epiglottic petiole movement Pharyngeal Impairment: Anterior Hyoid Excursion: 1=Partial anterior movement Pharyngeal Impairment: Epiglottic Movement: 1=Partial inversion Pharyngeal Impairment: Laryngeal Vestibular Closure:: 1=Incomplete: narrow column air/contrast in laryngeal vestibule Pharyngeal Impairment: Pharyngeal Stripping Wave: 0=Present: complete Pharyngeal Impairment: Pharyngeal Contraction: Did not test Pharyngeal Impairment: Pharyngoesophageal Segment Openin=Complete distension and complete duration: no obstruction of flow Pharyngeal Impairment: Tongue Base (TB) Retraction: 3=Wide column of contrast/air between TB and posterior PW Pharyngeal Impairment: Pharyngeal Residue: 1=Trace residue within or on pharyngeal structures Pharyngeal Impairment: Esophageal Clearance Upright Position: Did not test Impressions and Recommendations OBJECTIVE: Time-out: performed at 02:45 Evaluation Start: 02:30; Stop: 02:34 Patient Positioning: Seated 70-90 degrees Viewing Planes: LATERAL ONLY Contrast: MBSImP? Standardized Protocol using commercially prepared, standardized Barium viscosities, including: Varibar? THIN LIQUID (40% w/v, <15 cps) , Varibar? NECTAR (40% w/v, <150-450 cps) , Varibar? THIN HONEY (40% w/v, <800-1800 cps) , 1/2 Shortbread Cookie (1 x1 x.25 ) MBSImP ID: [id number] MBSImP Results: Lip closure for intraoral bolus containment could not be assessed due to logistical reasons not related to physiologic impairment. Tongue control during bolus hold resulted in posterior escape of less than half of the bolus. Bolus preparation and mastication resulted in slow, prolonged chewing/mashing but with complete re-collection. Bolus transport/lingual motion was with slowed tongue motion. Oral residue was a trace, lining oral structures. Initiation of the pharyngeal swallow occurred when the bolus head was in the pyriform sinuses. Soft palate elevation resulted in no bolus between the soft palate and the pharyngeal wall. Laryngeal elevation was decreased, with partial superior movement of the thyroid cartilage/partial approximation of the arytenoids to the epiglottic petiole. Anterior hyoid excursion demonstrated partial anterior movement. Epiglottic movement resulted in partial inversion. Laryngeal vestibular closure was incomplete, with a narrow column of air/contrast noted within the laryngeal vestibule at the height of the swallow. Pharyngeal stripping wave was present and complete. Pharyngeal contraction could not be determined due to logistical reasons not related to physiologic impairment. Pharyngoesophageal segment opening was completely distended for complete duration with no obstruction of bolus flow. Tongue base retraction allowed a wide column of contrast or air between the retracted tongue base and the posterior pharyngeal wall. Pharyngeal residue was a trace within or on pharyngeal structures. Esophageal clearance in the upright position could not be assessed due to logistical reasons not related to physiologic impairment. Oral Impairment Score: 8 (absence of score, component 1) Pharyngeal Impairment Score: 7 (absence of score, component 13) Esophageal Impairment Score: --- (absence of score, component 17) ASSESSMENT: Clinician Assessment: This exam was conducted by a multidisciplinary team, included a speech pathologist, radiologist, and heavy truck technician. Pt was seated upright at 90 degrees in a chair for lateral view only. Pt trialed the following liquid and solid consistencies: thin liquid barium individual sips and sequential sips, nectar thick liquid barium, honey thick liquid barium, pureed solid (mixture applesauce with barium paste), ground solid (mixture chicken salad with barium paste), regular solid (Lashell Doone cookie coated with barium paste), barium pill tablet taken with water. Pt demonstrated reduced tongue control, with premature posterior escape of bolus intermittently. Posterior lingual movements were slowed and delayed. Mastication was slowed and prolonged but with good oral recollection. There was trace lingual residue, which cleared with subsequent swallow. Pharyngeal swallow trigger was delayed, initiated as the bolus head reached the pyriform sinuses. There was no nasopharyngeal reflux. Laryngeal elevation was incomplete with partial anterior hyoid excursion. Epiglottic inversion was partial with incomplete laryngeal vestibular closure, evidenced narrow column of air in the laryngeal vestibule. This resulted in coating of the posterior epiglottis with intake of thin liquid, nectar thick liquid, and honey thick liquid. Question trace subsequent penetration above the vocal folds. There was no evidence of aspiration with intake of liquids. There was trace residuals on the tongue base and in the pyriform sinuses which subsequently cleared. No evidence of aspiration with solids of various consistencies. No obstruction of flow through the pharyngoesohpageal segment opening. Pt swallowed barium pill tablet with sips of water by cup. Barium pill tablet promptly passed through the oral cavity and the pharynx with no hang up. Liquid Intake Recommendation: Thin Liquid Intake Strategies: Small Sips, No Straws Dietary Recommendations: Chopped/Advanced (NDD3) Medication Administration: Whole with Liquid Please contact the pharmacy regarding appropriate crushable or liquid drug formulations that are available whenever modified delivery is recommended. Compensatory Strategies Recommended: Sitting Upright (90 deg), Double Swallow, No Straw, Small Bites and Sips, Rate of Ingestion Change, Avoid Specific Foods Supervision during eating and or drinking: Intermittent Supervision Recommendation for Speech Therapy: Speech Therapy through Rehab Facility PLAN: Intake Recommendations: Route: PO Diet Grade: CHOPPED/ADVANCED (NDD3) Liquid Consistencies: Thin Post-Study Functional Oral Intake Scale (FOIS): 5- Total oral intake of multiple consistencies requiring special preparation Coating of posterior epiglottis with intake of liquids. No evidence of aspiration with intake of liquids and solids. There was trace oral and pharyngeal residue which subsequently cleared. For ease of mastication, recommend CHOPPED/ADVANCED (NDD3) diet or select soft easy to chew food items, with THIN liquids and pills WHOLE in LIQUID (large pills crushed in puree if needed). Food to be softened and moistened with sauces and gravies as needed. Avoid hard and tough to chew solids. Recommend pt take small bites and chew food well. Clear oral cavity before taking more bites. Take small sips, one sip at a time. Upright 90 degree position while eating and drinking. Ensure daily oral care routine (3-4 times daily). Prognosis for Improvement: The prognosis for the patient to meet nutritional needs by mouth is good based on degree of impairment. Short Term Goals: ? Guidelines - The patient will comply with/recall the following guidelines/strategies 100% of the time with minimal cuing: Bolus Volume Change, Rate of Ingestion Change, Additional Swallow(s) per Bolus, No Straws. ? Education - The patient, caregiver will verbalize/demonstrate understanding of the results of this evaluation, the above recommendations, and the swallowing guidelines. Clinician - Supplemental, Miscellaneous Communication: It is important to note MBSS objective studies are snapshots in time and Patient function might vary with factors such as time of day or concomitant medical conditions. For this reason, the final treatment plan for this patient should rest with their medical care team. Additional recommendations should be considered with the totality of the Patient in mind. Thank for the opportunity to participate in the care of this patient. If you have any questions about the content of this report, please contact the [facility] at [facility]. Education: Education regarding findings from today's study and plans for therapy were provided to Patient only through Verbal Instruction. Hand Box Folder Clinician/Clinical Fellow: No Supervisory Statement: N/A Speech Language Pathologist: Dania Bearden M.A., CCC-[employer]ACE [employer]PER[employer] OFFICER
== END 2022-08-09 12:50 | disposition home or self-care (01) ==
LOC: HO.XRAY 12:49
PROVIDERS: Visit Provider Physician Assistant Medical
DX: R13.10 Dysphagia, unspecified (principal)
CPT/HCPCS: 74230; 92611

== ENCOUNTER 2022-08-28 13:46 | Emergency (ER) | payer MEDICARE, SELFPAY ==
[2022-08-28] VITALS (15 sets, daily range): BP systolic 103–144; BP diastolic 41–83; PULSE 65–78; RESP 12–18; TEMP 36.5–37; O2SAT 95–100; BMI 17.2
--- NOTE | 2022-08-28 13:59 | PC.NURSE ---
87 y/o F BIBA from [facility] with reported low H&H. pt is aox3, calm and cooperative, VSS at this time. pt denies any symptoms
[2022-08-28 14:15] LABS: Mean Corpuscular HGB Conc 33.3 g/dl (31.0-35.0); Mean Corpuscular Hemoglobin 30.1 pg (27.0-33.0); Mean Corpuscular Volume 90.4 fL (80.0-98.0); Mean Platelet Volume 12.6 fL (9.4-12.3); NRBC Pct Auto 0.7 /100WBC (0.0-0.2); Platelet Count 156 X10*3/uL (160-400); Red Blood Count 2.09 X10*6/uL (4.20-5.50); Red Cell Distribution Width 15.2 % (11.0-16.0)
[2022-08-28 14:21] LABS: Hematocrit 18.9 % (37.0-47.0); Hemoglobin 6.3 g/dl (12.0-16.0)
--- NOTE | 2022-08-28 14:25 | ED_ITS ---
HPI - General Adult General Chief complaint: General Medical Stated complaint: ABNORMAL LABS Source: patient Mode of arrival: EMS Limitations: no limitations History of Present Illness HPI narrative: Patient's emergency room complaining of fatigue. Patient was sent here from a [place] [facility] facility for low hemoglobin. 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 Patient states that she has had multiple blood transfusions in the past. Other than feeling fatigued, patient has no other complaints. Denies any recent illnesses, denies chest pain or shortness of breath, no abdominal pain. Denies bloody or black stools. Related Data Home Medications Medication Instructions Recorded Confirmed primidone 50 mg tablet 100 mg PO BEDTIME 11/02/21 07/30/22 gabapentin 100 mg capsule 200 mg PO BEDTIME 04/19/22 07/30/22 lactulose 10 gram/15 mL oral 15 ml PO Q24H PRN Constipation 04/19/22 07/30/22 solution lidocaine 5 % topical patch 1 patch topical DAILY 04/19/22 07/30/22 montelukast 10 mg tablet 10 mg PO DAILY 04/19/22 07/30/22 omeprazole 20 mg capsule,delayed 20 mg PO DAILY@0630 04/19/22 07/30/22 release ondansetron 4 mg disintegrating 4 mg PO Q8H PRN Nausea 04/19/22 07/30/22 tablet ropinirole 3 mg tablet 1.5 mg PO TID 04/19/22 07/30/22 Saccharomyces boulardii 1 cap PO BID 06/19/22 07/30/22 acetaminophen 325 mg tablet 975 mg PO Q8H 06/19/22 07/30/22 ascorbic acid (vitamin C) 500 mg 500 mg PO DAILY 06/19/22 07/30/22 tablet carbidopa ER 23.75 mg-levodopa 95 2 cap PO TID 06/19/22 07/30/22 mg capsule,extended release (Rytary) carboxymethylcellulose sodium 1 % 1 drp ophthalmic (eye) BID 06/19/22 07/30/22 eye drops carboxymethylcellulose sodium 1 % 1 drp ophthalmic (eye) Q12H PRN 06/19/22 07/30/22 eye drops Dry Eye(S) hydrocortisone 1 % topical cream 1 appl topical Q24H PRN Rash 06/19/22 07/30/22 levothyroxine 100 mcg tablet 100 mcg PO DAILY@0600 06/19/22 07/30/22 melatonin 5 mg tablet 6 mg PO BEDTIME 06/19/22 07/30/22 menthol 0.44 %-zinc oxide 20.6 % 1 appl topical BID 06/19/22 07/30/22 topical ointment (Calmoseptine) midodrine 5 mg tablet 5 mg PO TID 06/19/22 07/30/22 umeclidinium 62.5 mcg-vilanterol 1 inh inhalation DAILY 06/19/22 07/30/22 25 mcg/actuation powdr for inhalation (Anoro Ellipta) digoxin 125 mcg (0.125 mg) tablet 0.125 mg PO SUMOWETHSA 07/30/22 07/30/22 Previous Rx's Medication Instructions Recorded urea 15 gram oral powder packet 2 packet PO DAILY #8 ea 06/26/22 cefuroxime axetil 250 mg tablet 250 mg PO BID #6 tabs 07/31/22 Allergies Allergy/AdvReac Type Severity Reaction Status Date / Time vancomycin Allergy Mild unknown Verified 06/20/22 13:07 Review of Systems Review of Systems: Constitutional : No Weight loss, No Fever, No Chills, No Night Sweats, complaining of fatigue ENT/Mouth : No Hearing loss, No Ear Pain, No Nasal Congestion, No Sinus Pain, No Hoarseness, No sore throat, No Rhinorrhea, No Swallowing Difficulty Eyes: No Eye Pain, No Swelling, No Redness, No Foreign Body, No Discharge, No Vision Changes Cardiovascular : No Chest Pain, No SOB, No Dyspnea on Exertion, No Orthopnea, No Edema, No Palpitations Respiratory : No Cough, No Sputum, No Wheezing, No Smoke Exposure, No Dyspnea Gastrointestinal : No Nausea, No Vomiting, No Diarrhea, No Constipation, No abdominal Pain, No Hematochezia, No Melena Genitourinary : no irregular bleeding, No Dysuria, No Urinary Frequency, No Hematuria, No Urinary Incontinence, No Urgency, No Flank Pain, No Urinary Flow Changes, No Hesitancy Musculoskeletal : No joint pain, No Myalgias, No Joint Swelling Skin : No Skin Lesions, No rash Neuro : No Weakness, No Numbness, No Paresthesias, No Loss of Consciousness, No Dizziness, No Headache Psych : No Anxiety/Panic, No Depression, No SI/HI/AH/VH, No Social Issues, Heme/Lymph: Easy Bruising, No Bleeding,No Lymphadenopathy, complaining of low hemoglobin Endocrine : No Polyuria, No Polydipsia, No Temperature Intolerance [facility] Past Medical History Medical History Abnormal brain MRI Aortic stenosis CML (chronic myelocytic leukemia) Essential tremor (~06/19/22) Hypothyroid Obstructive sleep apnea PAF (paroxysmal atrial fibrillation) Parkinson's disease Surgical History Hx of cholecystectomy Hx of total knee replacement Family History Family History Mother Alzheimer's dementia Diverticulitis Father Cancer Social History Social History (Updated 07/30/22 @ 17:46 by Trixie Gonzalez RN) Household Members: Other Household Members Other:: snf Housing: Long Term Do you presently have visiting nurse or other home services: Yes Alcohol intake: never Patient Tobacco Use Status: Former Tobacco user Quit Date: 1991 Second Hand Smoke Exposure: No Advance Directives: Yes Advance Directives on File: Yes Advance Directives Date on File: 06/27/22 service: No Current occupational status: retired Physical Exam ED Vital Signs: Vital Signs - 24 hr 08/28/22 13:56 08/28/22 14:23 08/28/22 15:04 Temperature 98.2 F 97.8 F 97.7 F Pulse Rate 76 75 73 Respiratory Rate 16 16 15 Blood Pressure 112/71 111/44 L 106/41 L Pulse Oximetry 95 100 100 Oxygen Delivery Method Room Air Room Air Room Air 08/28/22 16:11 08/28/22 16:16 08/28/22 16:28 Temperature 97.9 F 98.6 F Pulse Rate 66 76 65 Respiratory Rate 18 18 18 Blood Pressure 105/46 L 103/50 L 105/41 L Pulse Oximetry 96 Oxygen Delivery Method Room Air 08/28/22 16:29 08/28/22 17:29 08/28/22 17:42 Temperature 98.2 F 98.2 F 97.9 F Pulse Rate 78 67 70 Respiratory Rate 18 18 16 Blood Pressure 110/56 L 121/76 121/41 L Pulse Oximetry Oxygen Delivery Method 08/28/22 17:44 08/28/22 17:59 08/28/22 18:07 Temperature 98.1 F 98.2 F Pulse Rate 68 68 72 Respiratory Rate 18 18 12 Blood Pressure 120/56 L 122/56 L 120/53 L Pulse Oximetry 96 Oxygen Delivery Method Room Air 08/28/22 18:46 08/28/22 20:31 08/28/22 21:16 Temperature 98.2 F 97.9 F Pulse Rate 72 70 Respiratory Rate 18 14 Blood Pressure 133/83 144/53 H 138/69 Pulse Oximetry Oxygen Delivery Method Room Air BMI result Body Mass Index 17.2 Const Other: Appearance: Alert. Oriented X3. No acute distress. Eyes: Pupils equal, round and reactive to light. ENT: Pharynx normal. Neck: Normal inspection. Neck supple. No lymph nodes noted. No crepitus CVS: Normal heart rate and rhythm. Pulses normal. Normal S1 and S2 Respiratory: No respiratory distress. Breath sounds normal. No Wheezing. No rales Abdomen: Soft and nontender. No rigidity. No distention. Skin: Skin warm and dry. Diffusely pale Extremities: No lower extremity edema. No Lacerations. No Rash Neuro: Oriented X 3. No motor deficit. No sensory deficit. Moving all extremities. No slurred speech. CN 2 through 12 grossly intact Psych: calm, cooperative, normal affect Course Course Course Narrative: Other than fatigue, patient has no chest pain or shortness of breath. Type and screen pending, patient agreeable to blood transfusion. Patient states that she has never had adverse reactions to blood transfusions in the past. Consent has been signed. Patient feeling comfortable Medical Decision Making Medical Decision Making MDM Narrative: Patient will be receiving at least 2 units of blood. I reviewed hematology/oncology notes, goal of blood transfusions are a hemoglobin of 7 Patient's vitals are stable, blood pressure 111/44, heart rate 75, respirations 16, temperature 97.8 degrees, 100% on room air At this time, I anticipate that patient will be transfused and likely to be discharged back to the [place] [facility] facility Patient known to be anemic, previews stool occult blood test negative on various occasions, last guaiac test was done less than a month ago, no need to repeat at this time. On previous occasions, patient had to be hospitalized for anemia complicated with bradycardia, syncope and hyponatremia. At this time, patient does not have any of the above-mentioned. Physician after patient started at 15:00, patient will be transfused, reassessed, and likely discharged H&H hemoglobin improved to 9.9, hematocrit 30.2, patient feels well, patient tolerated well the blood transfusion. Units were given. Patient is ready for discharge. Differential Diagnosis Differential Diagnoses: The differential diagnosis associated with the presentation includes (Anemia, CML) Lab Data MDM Lab Attestation statement: I reviewed the patient's lab results. 08/28/22 14:09 08/28/22 14:09 Labs: Lab Results 08/28/22 08/28/22 08/28/22 Range/Units 14:09 14: 14:31 WBC 3.0 L (4.8-10.8) X10*3/uL RBC 2.09 L D (4.20-5.50) X10*6/uL Hgb 6.3 L* D (12.0-16.0) g/dl Hct 18.9 L* D (37.0-47.0) % MCV 90.4 (80.0-98.0) fL MCH 30.1 (27.0-33.0) pg MCHC 33.3 (31.0-35.0) g/dl RDW 15.2 (11.0-16.0) % Plt Count 156 L D (160-400) X10*3/uL MPV 12.6 H (9.4-12.3) fL Immature Gran % (Auto) Cancelled Neut % (Auto) Cancelled Lymph % (Auto) Cancelled [place] % (Auto) Cancelled Eos % (Auto) Cancelled Baso % (Auto) Cancelled Lymph # (Auto) Cancelled [place] # (Auto) Cancelled Eos # (Auto) Cancelled Baso # (Auto) Cancelled Abs Immat Gran (auto) Cancelled Absolute Neuts (auto) Cancelled Absolute Nucleated RBC 0.020 H (0.0-0.012) X10*3/uL Nucleated RBC % (auto) 0.7 H (0.0-0.2) /100WBC Neutrophils % (Manual) 14 L (45-73) % Band Neutrophils % 1 L (3-5) % Lymphocytes % (Manual) 65 H (20-40) % Atypical Lymphs % (Man) 4 (0-6) % Monocytes % (Manual) 10 (2-11) % Metamyelocytes % 4 % Myelocytes % 2 % Abs Neuts (Manual) 0.5 L (2.0-8.3) X10*3/uL Lymphocytes # (Manual) 2.0 (1.2-4.9) X10*3/uL Atyp Lymphs # (Manual) 0.1 x10*3/uL Monocytes # (Manual) 0.3 (0.1-1.2) X10*3/uL Metamyelocytes # 0.1 X10*3/uL Myelocytes # 0.1 X10*/uL Nucleated RBCs 1 H (0-0) /100WBC Platelet Estimate SLIGHTLY DECREASED (NORMAL) Plt Morphology Comment NORMAL RBC Morphology NOTED Hypochromasia 1+ (5-14) /OIF Ovalocytes 1+ (5-14) /OIF Acanthocytes (Spur) 1+ (0-2) /OIF Sodium 135 (135-145) mmol/L Potassium 5.3 H D (3.3-5.1) mmol/L Chloride 106 (96-108) mmol/L Carbon Dioxide 21 L (22-29) mmol/L Anion Gap 13 (12-20) BUN 30 H (9-16) mg/dL Creatinine 0.80 (0.5-1.4) mg/dL Estim Creat Clear Calc 40.5 Estimated GFR > 60 Fasting Glucose 98 (60-99) mg/dL Calcium 8.7 (8.4-10.2) mg/dL Total Bilirubin 0.4 (0.0-1.0) mg/dL AST 12 (5-31) U/L ALT < 6 (0-31) U/L Alkaline Phosphatase 109 (39-117) U/L Total Protein 7.3 (6.5-8.0) g/dL Albumin 3.3 L (3.5-5.0) g/dL Blood Type O Positive Antibody Screen NEGATIVE Crossmatch (AHG) See Detail 08/28/22 Range/Units 22:05 WBC (4.8-10.8) X10*3/uL RBC (4.20-5.50) X10*6/uL Hgb 9.9 L D (12.0-16.0) g/dl Hct 30.2 L D (37.0-47.0) % MCV (80.0-98.0) fL MCH (27.0-33.0) pg MCHC (31.0-35.0) g/dl RDW (11.0-16.0) % Plt Count (160-400) X10*3/uL MPV (9.4-12.3) fL Immature Gran % (Auto) Neut % (Auto) Lymph % (Auto) [place] % (Auto) Eos % (Auto) Baso % (Auto) Lymph # (Auto) [place] # (Auto) Eos # (Auto) Baso # (Auto) Abs Immat Gran (auto) Absolute Neuts (auto) Absolute Nucleated RBC (0.0-0.012) X10*3/uL Nucleated RBC % (auto) (0.0-0.2) /100WBC Neutrophils % (Manual) (45-73) % Band Neutrophils % (3-5) % Lymphocytes % (Manual) (20-40) % Atypical Lymphs % (Man) (0-6) % Monocytes % (Manual) (2-11) % Metamyelocytes % % Myelocytes % % Abs Neuts (Manual) (2.0-8.3) X10*3/uL Lymphocytes # (Manual) (1.2-4.9) X10*3/uL Atyp Lymphs # (Manual) x10*3/uL Monocytes # (Manual) (0.1-1.2) X10*3/uL Metamyelocytes # X10*3/uL Myelocytes # X10*/uL Nucleated RBCs (0-0) /100WBC Platelet Estimate (NORMAL) Plt Morphology Comment RBC Morphology Hypochromasia /OIF Ovalocytes /OIF Acanthocytes (Spur) /OIF Sodium (135-145) mmol/L Potassium (3.3-5.1) mmol/L Chloride (96-108) mmol/L Carbon Dioxide (22-29) mmol/L Anion Gap (12-20) BUN (9-16) mg/dL Creatinine (0.5-1.4) mg/dL Estim Creat Clear Calc Estimated GFR Fasting Glucose (60-99) mg/dL Calcium (8.4-10.2) mg/dL Total Bilirubin (0.0-1.0) mg/dL AST (5-31) U/L ALT (0-31) U/L Alkaline Phosphatase (39-117) U/L Total Protein (6.5-8.0) g/dL Albumin (3.5-5.0) g/dL Blood Type Antibody Screen Crossmatch (AHG) Critical Care Time Critical Care Time Critical Care Time: Yes Total Critical Care Time: 60 Attestation: I have personally provided critical care time. Time includes review of lab data, radiology results, discussion with consultants, and monitoring for potential decompensation. Intervention performed as documented. Discharge Plan Discharge Clinical Impression: Acute on chronic anemia Patient Disposition: Home, Self-Care Instructions: Anemia (ED) Additional Instructions: Please follow-up with your primary care physician tomorrow. If you have any worsening or new symptoms, please return to the emergency room or call 911 Prescriptions: No Action acetaminophen 325 mg Tablet 975 mg PO Q8H midodrine 5 mg Tablet 5 mg PO TID Rx Instructions: HOLD FOR SBP >110; do not give last dose of day after 6PM or within 4 hrs of bedtime levothyroxine 100 mcg Tablet 100 mcg PO DAILY@0600 ascorbic acid (vitamin C) 500 mg Tablet 500 mg PO DAILY hydrocortisone 1 % Cream 1 appl TOPICAL Q24H PRN (Reason: Rash) melatonin 5 mg Tablet 6 mg PO BEDTIME menthol-zinc oxide [Calmoseptine] 0.44-20.6 % Ointment 1 appl TOPICAL BID Rx Instructions: to buttocks Anoro Ellipta 62.5-25 mcg/actuation Blister With Device 1 inh INHALATION DAILY Rytary 23.75-95 mg Capsule, Extended Release 2 cap PO TID Rx Instructions: divide evenly over waking hours carboxymethylcellulose sodium 1 % Drops 1 drp OPHTHALMIC (EYE) Q12H PRN (Reason: Dry Eye(S)) carboxymethylcellulose sodium 1 % Drops 1 drp OPHTHALMIC (EYE) BID Saccharomyces boulardii 1 cap PO BID urea 15 gram powder in packet 2 packet PO DAILY Qty: 8 0RF digoxin 125 mcg (0.125 mg) tablet 0.125 mg PO SUMOWETHSA cefuroxime axetil 250 mg tablet 250 mg PO BID Qty: 6 0RF Rx Instructions: Next dose due 12 @2100 lactulose 10 gram/15 mL solution 15 ml PO Q24H PRN (Reason: Constipation) omeprazole 20 mg capsule,delayed release(DR/EC) 20 mg PO DAILY@0630 ondansetron 4 mg tablet,disintegrating 4 mg PO Q8H PRN (Reason: Nausea) gabapentin 100 mg capsule 200 mg PO BEDTIME montelukast 10 mg tablet 10 mg PO DAILY lidocaine 5 % adhesive patch,medicated 1 patch topical DAILY Rx Instructions: APPLY PATCH TO THE RIGHT HIP ropinirole 3 mg tablet 1.5 mg PO TID primidone 50 mg tablet 100 mg PO BEDTIME
[2022-08-28 14:43] LABS: Alanine Aminotransferase < 6 U/L (0-31); Albumin Level 3.3 g/dL (3.5-5.0); Alkaline Phosphatase 109 U/L (39-117); Anion Gap 13 (12-20); Aspartate Amino Transferase 12 U/L (5-31); Bilirubin Total 0.4 mg/dL (0.0-1.0); Blood Urea Nitrogen 30 mg/dL (9-16); Calcium 8.7 mg/dL (8.4-10.2); Carbon Dioxide 21 mmol/L (22-29); Chloride 106 mmol/L (96-108); Creatinine Clr Calc Pharmacy 40.5; Estimated Glomerular Filt Rate > 60; Glucose Fasting 98 mg/dL (60-99); Potassium 5.3 mmol/L (3.3-5.1); Sodium 135 mmol/L (135-145); Total Protein 7.3 g/dL (6.5-8.0)
--- NOTE | 2022-08-28 14:43 | PC.NURSE ---
two large bore IVs in place, t/s sent, awaiting blood from blood bank
[2022-08-28 14:58] LABS: Atypical Lymph Absolute Manual 0.1 x10*3/uL; Atypical Lymphs Percent Manual 4 % (0-6); Band Neutrophils Percent 1 % (3-5); Lymphocytes Percent Manual 65 % (20-40); Metamyelocytes Absolute 0.1 X10*3/uL; Metamyelocytes Percent 4 %; Monocytes Absolute Manual 0.3 X10*3/uL (0.1-1.2); Monocytes Percent Manual 10 % (2-11); Myelocytes Absolute 0.1 X10*/uL; Myelocytes Percent 2 %; Neutrophils Absolute Manual 0.5 X10*3/uL (2.0-8.3); Neutrophils Percent Manual 14 % (45-73)
[2022-08-28 14:59] LABS: Nucleated Red Blood Cells 1 /100WBC (0-0); RBC Morphology NOTED
[2022-08-28 15:01] LABS: Acanthocytes 1+ (0-2) /OIF; Hypochromasia 1+ (5-14) /OIF; Ovalocytes 1+ (5-14) /OIF
[2022-08-28 15:02] LABS: Platelet Estimate SLIGHTLY DECREASED (NORMAL); Platelet Morphology Comment NORMAL
--- NOTE | 2022-08-28 19:30 | PC.NURSE ---
Assumed care of pt at 1900. Pt. currently resting in bed with blood transfusing. Pt. reported coming in with a brief, but now has nothing to wear when she goes home. Provided pt. with mesh underwear and pads for pending d/c.
--- NOTE | 2022-08-28 20:02 | PC.NURSE ---
Pt. urinated on bed m[place]jo. Pt. repositioned into bed on her left side. Provided pt. with a warm blanket and pt. requests food and drink. Providing with a sandwich and gingerale.
[2022-08-28 22:11] LABS: Hematocrit 30.2 % (37.0-47.0); Hemoglobin 9.9 g/dl (12.0-16.0)
== END 2022-08-28 23:45 | disposition home or self-care (01) ==
PROVIDERS: Emergency Provider Emergency Medicine; PCP Internal Medicine
DX: D64.9 Anemia, unspecified (principal); G20 Parkinson's disease; I48.0 Paroxysmal atrial fibrillation; Z87.891 Personal history of nicotine dependence
CPT/HCPCS: 36415; 36430; 80053; 85007; 85014; 85018; 85027; 86850; 86900; 86901; 86920; 86922; 99284; 99285; P9016

== ENCOUNTER → 2022-09-21 11:30 | Outpatient (BNVA) | payer MEDICARE, SELFPAY | PROVIDERS: PCP Internal Medicine; Visit Provider Nurse Practitioner Family | DX: G20 Parkinson's disease (principal); G25.0 Essential tremor; R26.9 Unspecified abnormalities of gait and mobility; G47.33 Obstructive sleep apnea (adult) (pediatric); I48.0 Paroxysmal atrial fibrillation | CPT/HCPCS: 99212 ==